=== PATIENT | female | born 2000 | race Hispanic/Latino ===

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

== ENCOUNTER 2021-10-15 11:22 | Emergency (ER) | payer OTHER ==
[2021-10-15] MEDS ORDERED: HYDROCODONE/APAP 5/325 MG TAB ONE (13:19)
--- NOTE | 2021-10-15 13:46 | ER ---
Nurse's Notes [facility] Name: Kaleigh Alston Age: 21 yrs Sex: Female : 2000 Arrival Date: 10/15/2021 Time: 11:26 Bed 17 Private MD: Diagnosis: Dental Pain Presentation: 10/15 11:50 Chief complaint: Patient states: pt reports right jaw/mouth pain that started this [place]ward morning that radiates to head causing headaches. Coronavirus screen: Vaccine status: Patient reports being unvaccinated. Ebola Screen: Patient denies travel to an Ebola-affected area in the 21 days before illness onset. Initial Sepsis Screen: Does the patient meet any 2 criteria? No. Patient's initial sepsis screen is negative. Does the patient have a suspected source of infection? No. Patient's initial sepsis screen is negative. Risk Assessment: Do you want to hurt yourself or someone else? Patient reports no desire to harm self or others. Onset of symptoms was October 15, 2021. 11:50 Method Of Arrival: Ambulatory [place] 11:50 Acuity: FRANK 4 [place] Triage Assessment: 11:52 Headache History: The patient has had previous headaches. General: Appears in no [place] apparent distress. Behavior is calm, cooperative. Pain: Pain at worst was 10 out of 10 on a pain scale. Pain began suddenly, Also complains of no other associated symptoms. Neuro: No deficits noted. Level of Consciousness is awake, alert, obeys commands, Oriented to person, place, time, situation. 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 - Social history:: Smoking status: Patient denies any tobacco usage or history of. Screenin:36 Abuse screen: Denies threats or abuse. Denies injuries from another. Nutritional bp screening: No deficits noted. Tuberculosis screening: No symptoms or risk factors identified. Fall Risk None identified. Assessment: 12:36 General: SEE TRIAGE NOTE. bp 13:54 Reassessment: PT D/C HOME AMBULATORY, DX WITH DENTAL PAIN. bp Vital Signs: 11:50 BP 110 / 78; Pulse 77; Resp 18; Temp 98.7(O); Pulse Ox 100% on R/A; Weight 49.9 kg; [place] Height 5 ft. 7 in. (170.18 cm); 13:54 BP 115 / 69; Pulse 75; Resp 17; Pulse Ox 100% ; bp 11:50 Body Mass Index 17.23 (49.90 kg, 170.18 cm) [place] ED Course: 11:26 Patient arrived in ED. as 11:52 Triage completed. [place] 12:35 Tu Farrell, RN is Primary Nurse. bp 12:36 Arm band placed on. bp 12:36 Patient has correct armband on for positive identification. Bed in low position. Call bp light in reach. Side rails up X2. 12:40 Rich Champion PA is PHCP. [facility] 12:40 Phi Mayberry MD is Attending Physician. [facility] 13:44 Chuy Byrne DDS is Referral Physician. [facility] 13:54 No provider procedures requiring assistance completed. Patient did not have IV access bp during this emergency room visit. Administered Medications: 13:10 Drug: [place] (HYDROcodone-acetaminophen) 10 mg-325 mg 1 tabs Route: PO; bp 13:55 Follow up: Response: No adverse reaction bp Medication: 12:36 VIS not applicable for this client. bp Outcome: 13:45 Discharge ordered by MD. [facility] 13:54 Discharged to home ambulatory. bp 13:54 Condition: stable 13:54 Discharge instructions given to patient, Instructed on discharge instructions, follow up and referral plans. medication usage, Demonstrated understanding of instructions, follow-up care, medications, Prescriptions given X 3. 13:56 Patient left the ED. bp Signatures: Rich Champion PA PA jmm Martinez, Amelia as Tu Farrell, RN RN bp Au-StagerJesenia RN RN [place]
--- NOTE | 2021-10-15 13:46 | EDPHYS ---
Physician Documentation [facility] Name: Kaleigh Alston Age: 21 yrs Sex: Female : 2000 Arrival Date: 10/15/2021 Time: 11:26 Bed 17 Private MD: ED Physician Phi Mayberry HPI: 10/15 12:45 This 21 yrs old Female presents to ER via Ambulatory with complaints of Jaw jmm Pain, Headache. 12:45 The patient presents with pain. Onset: The symptoms/episode began/occurred gradually, 3 jmm day(s) ago. Duration: The symptoms are continuous. Modifying factors: The symptoms are alleviated by nothing, the symptoms are aggravated by chewing. This is a 21 year old female currently 16 weeks that presents to the ED with complaints of right sided jaw pain which she states originated in the right side of her mouth. Denies fever, denies injury. . 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 - Social history:: Smoking status: Patient denies any tobacco usage or history of. ROS: 12:45 Constitutional: Negative for fever, chills, and weight loss. jmm 12:45 ENT: Positive for dental pain. 12:45 All other systems are negative. Exam: 12:45 Constitutional: This is a well developed, well nourished patient who is awake, alert, jmm and in no acute distress. Head/Face: atraumatic. Eyes: EOMI, no conjunctival erythema appreciated 12:45 Neck: Trachea midline, Supple Chest/axilla: Normal chest wall appearance and motion. Cardiovascular: Regular rate and rhythm. No edema appreciated Respiratory: Normal respirations, no respiratory distress appreciated Abdomen/GI: Non distended Back: Normal ROM Skin: General appearance color normal MS/ Extremity: Moves all extremities, no obvious deformities appreciated, no edema noted to the lower extremities Neuro: Awake and alert Psych: Behavior is normal, Mood is normal, Patient is cooperative and pleasant 12:45 ENT: Posterior pharynx: is normal, Dental exam: gum swelling, that is mild, specifically in the lower right second bicuspid (#29), lower right first molar (#30) and lower right second molar (#31). Vital Signs: 11:50 BP 110 / 78; Pulse 77; Resp 18; Temp 98.7(O); Pulse Ox 100% on R/A; Weight 49.9 kg; [place] Height 5 ft. 7 in. (170.18 cm); 13:54 BP 115 / 69; Pulse 75; Resp 17; Pulse Ox 100% ; bp 11:50 Body Mass Index 17.23 (49.90 kg, 170.18 cm) [place] MDM: 12:45 Patient medically screened. [facility] 13:43 Data reviewed: vital signs, nurses notes. [facility] 13:43 Counseling: I had a detailed discussion with the patient and/or guardian regarding: the [facility] historical points, exam findings, and any diagnostic results supporting the discharge/admit diagnosis, the need for outpatient follow up, to return to the emergency department if symptoms worsen or persist or if there are any questions or concerns that arise at home. ED course: Patient is alert and non toxic in appearance in the ED. Patient advised to follow up with dentist and otherwise given strict return precautions. Patient understood and agrees with the plan of care. . Administered Medications: 13:10 Drug: [place] (HYDROcodone-acetaminophen) 10 mg-325 mg 1 tabs Route: PO; bp 13:55 Follow up: Response: No adverse reaction bp Disposition: 14:55 Co-signature as Attending Physician, Phi Mayberry MD I agree with the assessment and kdr plan of care. Disposition Summary: 10/15/21 13:45 Discharge Ordered Location: Home [facility] Condition: Stable [facility] Diagnosis - Dental Pain [facility] Followup: [facility] - With: Chuy Byrne DDS - When: 1 - 2 days - Reason: Recheck today's complaints, Continuance of care, Re-evaluation by your physician Discharge Instructions: - Discharge Summary Sheet [facility] - Dental Pain [facility] Forms: - Medication Reconciliation Form [facility] - Thank You Letter [facility] - Antibiotic Education [facility] - Prescription Opioid Use [facility] Prescriptions: - Peridex 0.12 % Mucous Membrane mouthwash - place 15 milliliter by MUCOUS MEMBRANE route 2 times per day after brushing m teeth, swish in mouth for 30 seconds then spit out; 1 bottle; Refills: 0, Product Selection Permitted - acetaminophen 500 mg/15 mL Oral liquid - take 15 milliliter by ORAL route every 4 hours not to exceed 120 mL in 24hrs; jmm 300 milliliter; Refills: 0, Product Selection Permitted - clindamycin palmitate HCl 75 mg/5 mL Oral recon soln - take 10 milliliter by ORAL route 3 times per day for 5 days; 150 milliliter; jmm Refills: 0, Product Selection Permitted Signatures: Phi Mayberry MD MD kdr Mickail, Joel, PA PA jmm Peltier, Brian, RN RN Ida-Jesenia Reddy RN RN [place]
[2021-10-15 14:47] VITALS: TEMP 98.7; O2SAT 100
[2021-10-15 14:56] VITALS: BP 115/69
== END 2021-10-15 13:56 | disposition home or self-care (01) ==
LOC: ER 11:22
DX: K08.89 Other specified disorders of teeth and supporting structures (principal); R68.84 Jaw pain; R51.9 Headache, unspecified
CPT/HCPCS: 99283

== ENCOUNTER 2022-04-12 19:34 | Emergency (ER) | payer OTHER ==
--- OUTSIDE RECORDS SUMMARY | 2022-04-12 19:52 | XMS REPORT | Continuity of Care Document ---
:2000 Author Organization [facility] t Address [address] [place] [address] Care Team Providers Name Role Phone Pcp, Patient Does Not Have A Primary Care Physician [phone] Ravi Kennedy Attending Clinician Unavailable SAMRA REYES Attending Clinician Unavailable SAMRA REYES Attending Clinician Unavailable Aaron Matute Attending Clinician Unknown, Attending Attending Clinician Unavailable AARON BECERRA Attending Clinician Unavailable Pcp, Patient Does Not Have A Attending Clinician [phone] Provider, [facility] Attending Clinician Unavailable Melisa Arrieta MD Attending Clinician MELISA ARRIETA Attending Clinician Unavailable Sarah Parikh RN Attending Clinician Unavailable ELAINA AL Attending Clinician Unavailable Charles POLISHER EYEGLASS FRAMES, Elaina Attending Clinician CHRIS HONEYCUTT Attending Clinician Unavailable Chris Honeycutt PA-C Attending Clinician CATHY DENNISON Attending Clinician Unavailable Jesi POLISHER EYEGLASS FRAMES, Cathy Campos Attending Clinician SUSAN BERMUDEZ Attending Clinician Unavailable Vincmeg POLISHER EYEGLASS FRAMES, Shinisaac Attending Clinician [email or web address] Attending Clinician Unavailable Olimpia Lin Attending Clinician [phone] Doctor Unassigned, [place] Attending Clinician Unavailable Giuseppe Christopher Attending Clinician Unavailable Christopher Slater Attending Clinician Unavailable [email or web address] Attending Clinician Unavailable Nicola Pichardo DO Attending Clinician Lab, [facility] Pob I Attending Clinician Unavailable Nadiya Jackson Attending Clinician NADIYA BLANCO Attending Clinician Unavailable Adore Jolly RN Attending Clinician Unavailable CHERRY NORIEGA Attending Clinician Unavailable Leann BOLDEN, [place] Attending Clinician Francie Israel RN Attending Clinician Unavailable Gilbert Mcgarry Attending Clinician [phone] AKINGILBERT GILMORE Attending Clinician Unavailable TED MODI Attending Clinician Unavailable TED MODI Attending Clinician Unavailable Teresa Guerrero MD Attending Clinician Ted Modi MD Attending Clinician Glo Aggarwal DO Attending Clinician ABHAY STAPLETON Attending Clinician Unavailable Abhay Mtz Attending Clinician Cielo BLANTON, Carmen Attending Clinician TERESA GUERRERO Admitting Clinician Unavailable SYD PAK Admitting Clinician Unavailable [email or web address] Admitting Clinician Unavailable [email or web address] Admitting Clinician Unavailable TED MODI Admitting Clinician Unavailable Gera BLANTON, Ted Admitting Clinician Yolanda BLANTON, Teresa Admitting Clinician Payers Payer Name Policy Type Policy Number Effective Date Expiration Date Samina [facility] [id number] 2019 00:00:00 [facility] [id number] - [place] H[place]) [place]ICAID OF [place] [id number] 2019 00:00:00 Problems Condition Condition Condition Status Onset Resolution Last Treating Co mments Source Name Details Category Date Date Treatment Clinician Date Bacterial Bacterial Problem Active Karlene via vaginosis Vaginosis 09-06 [facility] 00:00: 00 Routine Routine Problem Active [facility] 08-16 [facility] care Care 00:00: 00 Problem Active [facility] a 08-16 Medical 00:00: 00 Gestation Gestation Problem Active Karlene via period, 8 Period, 8 08-16 [facility] weeks Weeks 00:00: 00 Mastitis Mastitis Disease Active Unive rs 09-02 ity of 00:00: [place] 00 [facility] Screening Screening Disease Active Uni vers examinatio examinatio 08-16 it y of n for STD n for STD 00:00: [place] (sexually (sexually 00 [facility] transmitte transmitte Br anch d disease) d disease) 34 weeks 34 weeks Disease Active 2019-0 Unive rs gestation gestation 4-12 ity of of of 00:00: [place] 00 [facility] Pre-eclamp Pre-eclamp Disease Active 2020-0 U nivers eliel in eliel in 4-12 ity of third third 00:00: [place] trimester trimester 00 [facility] Preeclamps Preeclamps Disease Active 2020-0 U nivers ia, ia, 4-12 ity of severe, severe, 00:00: [place] third third 00 Medical trimester trimester Bran ch Mother's Mother's Disease Active 2020-0 Unive rs group B group B 4-12 ity of Streptococ Streptococ 00:[place] c[place] cus 00 Medical colonizati colonizati Br anch on status on status unknown unknown Need for Need for Disease Active 2019-0 Unive rs prophylact prophylact 3-04 it y of ic ic 00:00: [place] vaccinatio vaccinatio 00 Me dical n and n and Branch inoculatio inoculatio n against n against influenza influenza Urinary Urinary Disease Active Univers tract tract 2-12 [place] of infection infection 00:[place] without without 00 Medical hematuria, hematuria, Br anch site site unspecifie unspecifie d d Vaginal Vaginal Disease Active 2018-04 Univers discharge discharge 2-04 ity of 00:00: [place] [facility] Supervisio Supervisio Disease Active 2018-04 U nivers n of high n of high 0-03 ity of risk risk 00:00: [place] , , 00 Me dical antepartum antepartum Br anch High risk High risk Disease Active 2018-04 Uni vers teen teen 0-03 [place] of 00:[place] in third in third 00 Medica l trimester trimester Bran ch Primigravi Primigravi Disease Active 2018-04 U nivers da in da in 0-03 ity of second second 00:00: [place] trimester trimester 00 [facility] Branch Vaginal Vaginal Disease Active 2018-04 Univers bleeding bleeding 0-03 [place] of affecting affecting 00:00[place] early early 00 Medical Bran ch Nausea Nausea Disease Active 2018-04 Univers without without 0-03 ity of vomiting vomiting 00:00: [place] [facility] No known No known Disease Unive rs active active ity of problems problems [facility] Allergies, Adverse Reactions, Alerts Allergy Allergy Status Severity Reaction(s) Onset Inactive Treating Comm ents Source Name Type Date Date Clinician AMOXICIL DRUG Active Rash Univers LUPE INGREDI 9-18 ity of 00:00: [place] 00 Medical Branch Amoxicil Propensi Active Rash Univer s lupe ty to 918 ity of adverse 00:00: [place] reaction 00 Medical s Branch NO KNOWN Drug Active Univers ALLERGIE Class ity of S [facility] PENICILL Allergy Active [facility] INS to Medical substanc e Social History Social Habit Start Date Stop Date Quantity Comments Source ASSERTION 2018-12-10 University of 00:00:00 [place] [facility] History SDOH University o f Alcohol Std [place] Medical Drinks Branch History SDOH University o f Alcohol Binge [place] Medic al Branch History SDOH University o f Alcohol Comment [place] Med ical Branch History of Current smoker University of tobacco use [facility]igned [facility] Exposure to 2022-04-02 2022-04-12 Not sure University of SARS-CoV-2 00:00:00 14:08:00 [facility] (event) Branch Tobacco use and 2022-03-27 2022-03-27 Smokeless tobacco Un iversity of exposure 00:00:00 00:00:00 non-user [facility] Alcohol intake 2022-03-27 2022-03-27 Lifetime University of 00:00:00 00:00:00 non-drinker [facility] (finding) [place] History SDOH 2019-01-14 2019-01-14 1 University o f Alcohol Frequency 00:00:00 00:00:00 [facility] edical [place] Smoking Status Start Date Stop Date Source Ex-smoker 2022-03-27 00:00:00 2022-03-27 00:00:00 Universi ty of [facility] Never Smoker [facility] [place] [facility] Medications Ordered Filled Start Stop Current Ordering Indication Dosage Frequency Signature Comments Components Source Medication Medication Date Date Medication? Clinician (SIG) Name Name dicloxacill 2021-04- Yes [id number] 500mg Take 1 Univers in 500 mg 2-30 01-10 capsule by ity of capsule 00:00: 05:59 mouth 4 [place] 00 :00 ([facility]) Medical times [place] daily for 10 days. dicloxacill 2021-04- Yes [id number] 500mg Take 1 Univers in 500 mg 2-30 01-10 capsule by ity of capsule 00:00: 05:59 mouth 4 [place] 00 :00 ([facility]) Medical times [place] daily for 10 days. cephALEXin 2021-04- Yes [id number] 500mg Take 10 mL Univers 250 mg/5 mL 2-30 01-10 by mouth 4 i ty of suspension 00:00: 05:59 ([facility]) [place] :[place] times Medical daily for Branch 10 days. dicloxacill 2021-04- Yes [id number] 500mg Take 1 Univers in 500 mg 2-30 01-10 capsule by ity of capsule 00:00: 05:59 mouth 4 [place] 00 :00 ([facility]) Medical times [place] daily for 10 days. cephALEXin 2021-04- Yes [id number] 500mg Take 10 mL Univers 250 mg/5 mL 2-30 -10 by mouth 4 i ty of suspension 00:00: 05:59 (four[place] 00 :[place] times Medical daily for Branch 10 days. Prenat Vit 2021-04 Yes Take by [employer] [facility] Comb.10-Iro 2-14 mouth. ity of n-FA-DHA 17:03: [place] 65-1-250 mg 04 Medical combo pack Branch Prenat Vit 2021-04 Yes Take by [employer] [facility] Comb.10-Iro 2-14 mouth. ity of n-FA-DHA 17:03: [place] 65-1-250 mg 04 Medical combo pack Branch Prenat Vit 2021-04 Yes Take by [employer] [facility] Comb.10-Iro 2-14 mouth. ity of n-FA-DHA 17:03: [place] 65-1-250 mg 04 Medical combo pack Branch Prenat Vit 2021-04 Yes Take by [employer] [facility] Comb.10-Iro 2-14 mouth. ity of n-FA-DHA 17:03: [place] 65-1-250 mg 04 Medical combo pack Branch ibuprofen 2021-04 Yes [id number] 600mg Take 1 Univers 600 mg 2-14 tablet by ity of tablet 00:00: mouth [place] 00 every 6 Medical (six) Branch hours as needed for Pain (scale 4-6). miconazole 2021-04 Yes [id number] 1{appli Insert 1 Univers (MONISTAT 2-14 cator} Applicator it y of 7) 2 % 00:00: into [place] vaginal 00 vagina at Medical cream bedtime. Branch ibuprofen 2021-04 Yes [id number] 600mg Take 1 Univers 600 mg 2-14 tablet by ity of tablet 00:00: mouth [place] 00 every 6 Medical (six) Branch hours as needed for Pain (scale 4-6). miconazole 2021-04 Yes [id number] 1{appli Insert 1 Univers (MONISTAT 2-14 cator} Applicator it y of 7) 2 % 00:00: into [place] vaginal 00 vagina at Medical cream bedtime. Branch ibuprofen 2021-04 Yes [id number] 600mg Take 1 Univers 600 mg 2-14 tablet by ity of tablet 00:00: mouth [place] 00 every 6 Medical (six) Branch hours as needed for Pain (scale 4-6). miconazole 2021-04 Yes [id number] 1{appli Insert 1 Univers (MONISTAT 2-14 cator} Applicator it y of 7) 2 % 00:00: into [place] vaginal 00 vagina at Medical cream bedtime. Branch ibuprofen 2021-04 Yes [id number] 600mg Take 1 Univers 600 mg 2-14 tablet by ity of tablet 00:00: mouth [place] 00 every 6 Medical (six) Branch hours as needed for Pain (scale 4-6). miconazole 2021-04 Yes [id number] 1{appli Insert 1 Univers (MONISTAT 2-14 cator} Applicator it y of 7) 2 % 00:00: into [place] vaginal 00 vagina at Medical cream bedtime. Branch amoxicillin 2021-04- Yes [id number] 870mg Take 7.25 Univers -pot 2-14 12-22 mL by ity of clavulanate 00:00: 05:59 mouth in [place] 600-42.9 00 :00 the Medical mg/5 mL morning Branch suspension and 7.25 mL in the evening. Do all this for 7 days. amoxicillin 2021-04- No [id number] 1{tbl} Take 1 Univers -clavulanat 2-14 12-14 tablet by it y of e 00:00: 00:00 mouth in [place] (AUGMENTIN) 00 :00 the Medical 875-125 mg morning Branch per tablet and 1 tablet in the evening. Do all this for 7 days. fluconazole 2021-04- No [id number] 150mg Take 1 Univers (DIFLUCAN) 2-14 12-14 tablet by ity of 150 mg 00:00: 00:00 mouth [place] tablet 00 :00 now for 1 Medical dose. Branch No known No No known Unive rs medications 9-24 medication it y of 16:00: [address] No known 0 No No known Unive rs medications 9-24 medication it y of 16:00: [address] No known 2021-0 No No known Unive rs medications 8-17 medication it y of 12:52: [address] No known 2021-0 No No known Unive rs medications 8-15 medication it y of 15:47: [address] No known No No known Unive rs medications 8-08 medication it y of 07:55: s [place] 10 [facility] sulfamethox 2020-0 2020- No [id number] 1{tbl} Take 1 Univers azole-trime 8-01 12- tablet by it y of thoprim 00:00: 04:59 mouth 2 [place] (BACTRIM 00 :00 (two) Medical DS) 800-160 times Branch mg per daily for tablet 10 days. sulfamethox 2020-0 2020- No [id number] 1{tbl} Take 1 Univers azole-trime 8-20 - tablet by it y of thoprim 00:00: 04:59 mouth 2 [place] (BACTRIM 00 :00 (two) Medical DS) 800-160 times Branch mg per daily for tablet 10 days. No known 2020-0 No Univers medications 7-21 ity of 17:05: [address] No known 2019-0 No Univers medications 7-21 ity of 17:05: [address] clindamycin 2019-0 2020- No [id number] 300mg Take 1 Univers 300 mg 5-22 06-02 capsule by ity of capsule 00:00: 04:59 mouth 4 [place] 00 :00 (four) Medical times [place] daily for 10 days. clindamycin 2019-0 2020- No [id number] 300mg Take 1 Univers 300 mg 5-22 06-02 capsule by ity of capsule 00:00: 04:59 mouth 4 [place] 00 :00 (four) Medical times [place] daily for 10 days. MELATONIN 2019-0 2020- No Take by Univ ers ORAL 4-15 04-15 mouth. ity of 19:40: 00:00 [place] 13 :00 [facility] Branch human 2020-0 Yes .5mL 0.5 mL, Univers papillomav 4-15 Intramuscu ity of vac,9-oneida(P 11:10: lar, [place] F) 15 ONCE-PRIOR Medical (GARDASIL 9 TO Branch (PF)) vial DISCHARGE, 0.5 mL 1 dose, Starting Fri07/28/19 at 0610, Until Discontinu ed, Routine, Give vaccine prior to discharge labetalol 2020-0 Yes [id number] 100mg Take 10 mL Univers (NORMODYNE) 4-15 by mouth 2 it y of 10 mg/mL 00:00: (two) [place] oral 00 times Medical suspension daily. Branch 2020-0 Yes [id number] 1{tbl} Take 1 Univers vitamin 4-15 tablet by ity of w/FA tablet 00:00: mouth [place] 00 daily. Medical Branch docusate 2020-0 Yes [id number] 240mg Take 1 U nivers calcium 240 4-15 capsule by it y of mg capsule 00:00: mouth once [place] 00 daily as Medical needed for Branch Constipati on. ferrous 2020-0 Yes [id number] 325mg Take 1 Un manav sulfate 325 4-15 tablet by ity of mg (65 mg 00:00: mouth 2 [place] iron) 00 (two) Medical tablet times Branch daily. ibuprofen 2020-0 Yes [id number] 600mg Take 1 Univers 600 mg 4-15 tablet by ity of tablet 00:00: mouth [place] 00 every 6 Medical (six) Branch hours as needed (Pain). Take with food or milk. labetalol 2020-0 Yes [id number] 100mg Take 10 mL Univers (NORMODYNE) 4-15 by mouth 2 it y of 10 mg/mL 00:00: (two) [place] oral 00 times Medical suspension daily. Branch 2020-0 Yes [id number] 1{tbl} Take 1 Univers vitamin 4-15 tablet by ity of w/FA tablet 00:00: mouth [place] 00 daily. Medical Branch docusate 2020-0 Yes [id number] 240mg Take 1 U nivers calcium 240 4-15 capsule by it y of mg capsule 00:00: mouth once [place] 00 daily as Medical needed for Branch Constipati on. ferrous 2020-0 Yes [id number] 325mg Take 1 Un manav sulfate 325 4-15 tablet by ity of mg (65 mg 00:00: mouth 2 [place] iron) 00 (two) Medical tablet times Branch daily. ibuprofen 2020-0 Yes [id number] 600mg Take 1 Univers 600 mg 4-15 tablet by ity of tablet 00:00: mouth [place] 00 every 6 Medical (six) Branch hours as needed (Pain). Take with food or milk. labetalol 2020-0 Yes [id number] 100mg Take 10 mL Univers (NORMODYNE) 4-15 by mouth 2 it y of 10 mg/mL 00:00: (two) [place] oral 00 times Medical suspension daily. Branch 2020-0 Yes [id number] 1{tbl} Take 1 Univers vitamin 4-15 tablet by ity of w/FA tablet 00:00: mouth [place] 00 daily. Medical Branch docusate 2020-0 Yes [id number] 240mg Take 1 U nivers calcium 240 4-15 capsule by it y of mg capsule 00:00: mouth once [place] 00 daily as Medical needed for Branch Constipati on. ferrous 2020-0 Yes [id number] 325mg Take 1 Un manav sulfate 325 4-15 tablet by ity of mg (65 mg 00:00: mouth 2 [place] iron) 00 (two) Medical tablet times Branch daily. ibuprofen 2020-0 Yes [id number] 600mg Take 1 Univers 600 mg 4-15 tablet by ity of tablet 00:00: mouth [place] 00 every 6 Medical (six) Branch hours as needed (Pain). Take with food or milk. labetalol 2020-0 Yes [id number] 100mg Take 10 mL Univers (NORMODYNE) 4-15 by mouth 2 it y of 10 mg/mL 00:00: (two) [place] oral 00 times Medical suspension daily. Branch 2019-0 Yes [id number] 1{tbl} Take 1 Univers vitamin 4-15 tablet by ity of w/FA tablet 00:00: mouth [place] 00 daily. Medical Branch docusate 2020-0 Yes [id number] 240mg Take 1 U nivers calcium 240 4-15 capsule by it y of mg capsule 00:00: mouth once [place] 00 daily as Medical needed for Branch Constipati on. ferrous 2020-0 Yes [id number] 325mg Take 1 Un manav sulfate 325 4-15 tablet by ity of mg (65 mg 00:00: mouth 2 [place] iron) 00 (two) Medical tablet times Branch daily. ibuprofen 2020-0 Yes [id number] 600mg Take 1 Univers 600 mg 4-15 tablet by ity of tablet 00:00: mouth [place] 00 every 6 Medical (six) Branch hours as needed (Pain). Take with food or milk. labetalol 2020-0 Yes [id number] 100mg Take 10 mL Univers (NORMODYNE) 4-15 by mouth 2 it y of 10 mg/mL 00:00: (two) [place] oral 00 times Medical suspension daily. Branch 2020-0 Yes [id number] 1{tbl} Take 1 Univers vitamin 4-15 tablet by ity of w/FA tablet 00:00: mouth [place] 00 daily. Medical Branch docusate 2020-0 Yes [id number] 240mg Take 1 U nivers calcium 240 4-15 capsule by it y of mg capsule 00:00: mouth once [place] 00 daily as Medical needed for Branch Constipati on. ferrous 2020-0 Yes [id number] 325mg Take 1 Un manav sulfate 325 4-15 tablet by ity of mg (65 mg 00:00: mouth 2 [place] iron) 00 (two) Medical tablet times Branch daily. ibuprofen 2020-0 Yes [id number] 600mg Take 1 Univers 600 mg 4-15 tablet by ity of tablet 00:00: mouth [place] 00 every 6 Medical (six) Branch hours as needed (Pain). Take with food or milk. labetalol 2020-0 Yes [id number] 100mg Take 10 mL Univers (NORMODYNE) 4-15 by mouth 2 it y of 10 mg/mL 00:00: (two) [place] oral 00 times Medical suspension daily. Branch 2019-0 Yes [id number] 1{tbl} Take 1 Univers vitamin 4-15 tablet by ity of w/FA tablet 00:00: mouth [place] 00 daily. Medical Branch docusate 2020-0 Yes [id number] 240mg Take 1 U nivers calcium 240 4-15 capsule by it y of mg capsule 00:00: mouth once [place] 00 daily as Medical needed for Branch Constipati on. ferrous 2020-0 Yes [id number] 325mg Take 1 Un manav sulfate 325 4-15 tablet by ity of mg (65 mg 00:00: mouth 2 [place] iron) 00 (two) Medical tablet times Branch daily. ibuprofen 2020-0 Yes [id number] 600mg Take 1 Univers 600 mg 4-15 tablet by ity of tablet 00:00: mouth [place] 00 every 6 Medical (six) Branch hours as needed (Pain). Take with food or milk. labetalol 2020-0 Yes [id number] 100mg Take 10 mL Univers (NORMODYNE) 4-15 by mouth 2 it y of 10 mg/mL 00:00: (two) [place] oral 00 times Medical suspension daily. Branch 2020-0 Yes [id number] 1{tbl} Take 1 Univers vitamin 4-15 tablet by ity of w/FA tablet 00:00: mouth [place] 00 daily. Medical Branch docusate 2020-0 Yes [id number] 240mg Take 1 U nivers calcium 240 4-15 capsule by it y of mg capsule 00:00: mouth once [place] 00 daily as Medical needed for Branch Constipati on. ferrous 2020-0 Yes [id number] 325mg Take 1 Un manav sulfate 325 4-15 tablet by ity of mg (65 mg 00:00: mouth 2 [place] iron) 00 (two) Medical tablet times Branch daily. ibuprofen 2020-0 Yes [id number] 600mg Take 1 Univers 600 mg 4-15 tablet by ity of tablet 00:00: mouth [place] 00 every 6 Medical (six) Branch hours as needed (Pain). Take with food or milk. labetalol 2020-0 Yes [id number] 100mg Take 10 mL Univers (NORMODYNE) 4-15 by mouth 2 it y of 10 mg/mL 00:00: (two) [place] oral 00 times Medical suspension daily. Branch 2020-0 Yes [id number] 1{tbl} Take 1 Univers vitamin 4-15 tablet by ity of w/FA tablet 00:00: mouth [place] 00 daily. Medical Branch docusate 2020-0 Yes [id number] 240mg Take 1 U nivers calcium 240 4-15 capsule by it y of mg capsule 00:00: mouth once [place] 00 daily as Medical needed for Branch Constipati on. ferrous 2020-0 Yes [id number] 325mg Take 1 Un manav sulfate 325 4-15 tablet by ity of mg (65 mg 00:00: mouth 2 [place] iron) 00 (two) Medical tablet times Branch daily. ibuprofen 2020-0 Yes [id number] 600mg Take 1 Univers 600 mg 4-15 tablet by ity of tablet 00:00: mouth [place] 00 every 6 Medical (six) Branch hours as needed (Pain). Take with food or milk. labetalol 2020-0 Yes [id number] 100mg Take 10 mL Univers (NORMODYNE) 4-15 by mouth 2 it y of 10 mg/mL 00:00: (two) [place] oral 00 times Medical suspension daily. Branch 2020-0 Yes [id number] 1{tbl} Take 1 Univers vitamin 4-15 tablet by ity of w/FA tablet 00:00: mouth [place] 00 daily. Medical Branch docusate 2020-0 Yes [id number] 240mg Take 1 U nivers calcium 240 4-15 capsule by it y of mg capsule 00:00: mouth once [place] 00 daily as Medical needed for Branch Constipati on. ferrous 2020-0 Yes [id number] 325mg Take 1 Un manav sulfate 325 4-15 tablet by ity of mg (65 mg 00:00: mouth 2 [place] iron) 00 (two) Medical tablet times Branch daily. ibuprofen 2020-0 Yes [id number] 600mg Take 1 Univers 600 mg 4-15 tablet by ity of tablet 00:00: mouth [place] 00 every 6 Medical (six) Branch hours as needed (Pain). Take with food or milk. labetalol 2020-0 Yes [id number] 100mg Take 10 mL Univers (NORMODYNE) 4-15 by mouth 2 it y of 10 mg/mL 00:00: (two) [place] oral 00 times Medical suspension daily. Branch 2020-0 Yes [id number] 1{tbl} Take 1 Univers vitamin 4-15 tablet by ity of w/FA tablet 00:00: mouth [place] 00 daily. Medical Branch docusate 2020-0 Yes [id number] 240mg Take 1 U nivers calcium 240 4-15 capsule by it y of mg capsule 00:00: mouth once [place] 00 daily as Medical needed for Branch Constipati on. ferrous 2020-0 Yes [id number] 325mg Take 1 Un manav sulfate 325 4-15 tablet by ity of mg (65 mg 00:00: mouth 2 [place] iron) 00 (two) Medical tablet times Branch daily. ibuprofen 2020-0 Yes [id number] 600mg Take 1 Univers 600 mg 4-15 tablet by ity of tablet 00:00: mouth [place] 00 every 6 Medical (six) Branch hours as needed (Pain). Take with food or milk. labetalol 2020-0 Yes [id number] 100mg Take 10 mL Univers (NORMODYNE) 4-15 by mouth 2 it y of 10 mg/mL 00:00: (two) [place] oral 00 times Medical suspension daily. Branch 2020-0 Yes [id number] 1{tbl} Take 1 Univers vitamin 4-15 tablet by ity of w/FA tablet 00:00: mouth [place] 00 daily. Medical Branch docusate 2020-0 Yes [id number] 240mg Take 1 U nivers calcium 240 4-15 capsule by it y of mg capsule 00:00: mouth once [place] 00 daily as Medical needed for Branch Constipati on. ferrous 2020-0 Yes [id number] 325mg Take 1 Un manav sulfate 325 4-15 tablet by ity of mg (65 mg 00:00: mouth 2 [place] iron) 00 (two) Medical tablet times Branch daily. ibuprofen 2020-0 Yes [id number] 600mg Take 1 Univers 600 mg 4-15 tablet by ity of tablet 00:00: mouth [place] 00 every 6 Medical (six) Branch hours as needed (Pain). Take with food or milk. labetalol 2020-0 Yes [id number] 100mg Take 10 mL Univers (NORMODYNE) 4-15 by mouth 2 it y of 10 mg/mL 00:00: (two) [place] oral 00 times Medical suspension daily. Branch 2019-0 Yes [id number] 1{tbl} Take 1 Univers vitamin 4-15 tablet by ity of w/FA tablet 00:00: mouth [place] 00 daily. Medical Branch docusate 2019-0 Yes [id number] 240mg Take 1 U nivers calcium 240 4-15 capsule by it y of mg capsule 00:00: mouth once [place] 00 daily as Medical needed for Branch Constipati on. ferrous 2020-0 Yes [id number] 325mg Take 1 Un manav sulfate 325 4-15 tablet by ity of mg (65 mg 00:00: mouth 2 [place] iron) 00 (two) Medical tablet times Branch daily. ibuprofen 2020-0 Yes [id number] 600mg Take 1 Univers 600 mg 4-15 tablet by ity of tablet 00:00: mouth [place] 00 every 6 Medical (six) Branch hours as needed (Pain). Take with food or milk. labetalol 2020-0 2020- No [id number] 100mg Take 10 mL Univers (NORMODYNE) 4-15 06-08 by mouth 2 i ty of 10 mg/mL 00:00: 00:00 (two) [place] oral 00 :00 times Medical suspension daily. Branch 2019-0 2020- No [id number] 1{tbl} Take 1 Univers vitamin 4-15 06-08 tablet by ity of w/FA tablet 00:00: 00:00 mouth [place] 00 :00 daily. Medical Branch docusate 2020-0 2020- No [id number] 240mg Take 1 Univers calcium 240 4-15 06-08 capsule by i ty of mg capsule 00:00: 00:00 mouth once [place] 00 :00 daily as Medical needed for Branch Constipati on. ferrous 2020-0 2020- No [id number] 325mg Take 1 U nivers sulfate 325 4-15 06-08 tablet by it y of mg (65 mg 00:00: 00:00 mouth [place] iron) 00 :00 (two) Medical tablet times Branch daily. ibuprofen 2019- 2020- No [id number] 600mg Take 1 [facility] 600 mg 4-15 06-08 tablet by ity of tablet 00:00: 00:00 mouth [place] 00 :00 every 6 Medical (six) Branch hours as needed (Pain). Take with food or milk. labetalol 2019- 2020- No [id number] 100mg Take 10 mL Univers (NORMODYNE) 4-15 06-08 by mouth 2 i ty of 10 mg/mL 00:00: 00:00 (two) [place] oral 00 :00 times Medical suspension daily. Branch 2020- No [id number] 1{tbl} Take 1 [facility] vitamin 4-15 06-08 tablet by ity of w/FA tablet 00:00: 00:00 [place] 00 :00 daily. Medical Branch docusate 2019- No [id number] 240mg Take 1 [facility] calcium 240 4-15 06-08 capsule by i ty of mg capsule 00:00: 00:00 mouth once [place] 00 :00 daily as Medical needed for Branch Constipati on. ferrous 2019- 2020- No [id number] 325mg Take 1 U nivers sulfate 325 4-15 06-08 tablet by it y of mg (65 mg 00:00: 00:00 mouth [place] iron) 00 :00 (two) Medical tablet times Branch daily. ibuprofen 2020- No [id number] 600mg Take 1 [facility] 600 mg 4-15 06-08 tablet by ity of tablet 00:00: 00:00 mouth [place] 00 :00 every 6 Medical (six) Branch hours as needed (Pain). Take with food or milk. labetalol 2019- 2020- No [id number] 100mg Take 10 mL [facility] (NORMODYNE) 4-15 06-08 by mouth 2 i ty of 10 mg/mL 00:00: 00:00 (two) [place] oral 00 :00 times Medical suspension daily. Branch 2019- 2020- No [id number] 1{tbl} Take 1 [facility] vitamin 4-15 06-08 tablet by ity of w/FA tablet 00:00: 00:00 [place] 00 :00 daily. Medical Branch docusate 2019-0 2020- No [id number] 240mg Take 1 [facility] calcium 240 07-27 capsule by i ty of mg capsule 00:00: 00:00 mouth once [place] 00 :00 daily as Medical needed for Branch Constipati on. ferrous 2019-0 2020- No [id number] 325mg Take 1 U nivers sulfate 325 07-27 tablet by it y of mg (65 mg 00:00: 00:00 mouth [place] iron) 00 :00 (two) Medical tablet times Branch daily. ibuprofen 2019-0 2020- No [id number] 600mg Take 1 [facility] 600 mg 07-27 tablet by ity of tablet 00:00: 00:00 mouth [place] 00 :00 every 6 Medical (six) Branch hours as needed (Pain). Take with food or milk. labetalol 2019-0 Yes 100mg 100 mg, Univ ers (NORMODYNE) 07-26 Oral, BID, it y of 10 mg/mL 16:30: First dose [place] as oral 00 on [facility] Medical suspension 07/27/19 at [facility] 100 mg 1130, Until Discontinu ed, Routine labetalol 2019-0 2020- No 20mg 20 mg, Unive rs (NORMODYNE) 07-26- Slow IV ity of injection 14:00: 12:59 Push, [place] 20 mg 00 :00 ONCE, 1 Medical dose, [facility] 07/27/19 at 0900, Routine hydralAZINE 2019- 2020- No 5mg 5 mg, Slow Univers (APRESOLINE 07-26 IV Push, ity of ) injection 12:00: 11:53 ONCE, 1 [place] 5 mg 00 :00 dose, [facility] Medical 07/27/19 at Branch 0700, Routine magnesium 2019- 2020- No 2g/h 2 g/hr (25 U nivers sulfate in 07-26- mL/hr), at it y of LR 40 09:15: 21:14 25 mL/hr, [place] gram/500 mL 00 :00 IV Medical IV Solution Infusion, [facility] CONTINUOUS , Starting [facility] 07/27/19 at 0415, Until [facility] 07/27/19 at 1614, KARIS traMADol 2019-0 Yes 50mg 50 mg, Univers (ULTRAM) 50 4-13 Oral, ity of mg/10 mL 20:21: Q4HPRN, [place] oral 14 Starting Medical syringe Mon Branch 07/26/19 at 1521, Until Discontinu ed, Routine, Pain (scale 7-10) acetaminoph 2020-0 Yes 650mg 650 mg, Un manav en 4-13 Oral, ity of (TYLENOL) 20:20: Q6HPRN, [place] 160 mg/5 mL 45 Starting Medi judy liquid 650 Mon Branch mg 07/26/19 at 1520, Until Discontinu ed, Routine, Pain (scale 4-6) rho(D) 2020-0 Yes 300ug 300 mcg, Univer s immune 4-13 Intramuscu ity of globulin 20:03: lar, ONCE, [place] as (RHOGAM) 31 For 1 Medical syringe 300 dose, Branch mcg Conditiona l, Routine simethicone 2020-0 Yes 160mg 160 mg, Un manav (GAS RELIEF 4- Oral, ity of (SIMETHICON 20:03: PC+HSPRN, [place] E)) 27 Starting Medical chewable Mon Branch tablet 160 07/26/19 at mg 1503, Until Discontinu ed, Routine, Gas diphenhydrA 2020-0 Yes 25mg 25 mg, Univ ers MINE 4-13 Oral, ity of (BENADRYL) 20:03: Q6HPRN, [place] tablet 25 26 Starting Medica l mg Mon Branch 07/26/19 at 1503, Until Discontinu ed, Routine, Sleep, Itching diphenhydrA 2020-0 Yes 25mg 25 mg, IV U nivers MINE-0.9 % 4- Piggyback, ity of sod.chlr 20:03: Administer [place] as (BENADRYL) 26 over 30 Medica l 25 mg/50 mL Minutes, Bran ch piggyback Q6HPRN, 25 mg Starting 07/26/19 at 1503, Until Discontinu ed, Routine, Itching ondansetron 2020-0 Yes 4mg 4 mg, Slow Univers (ZOFRAN 4- IV Push, ity of (PF)) 20:03: Q8HPRN, [place] injection 4 26 Starting Medi judy mg Mon Branch 07/26/19 at 1503, Until Discontinu ed, Routine, Nausea and Vomiting (N/V) docusate 2019-0 Yes 240mg 240 mg, Unive rs calcium 07-25 Oral, ity of (SURFAK) 20:03: QDAILYPRN, [place] as capsule 240 26 Starting Medi judy mg Mon Branch 07/26/19 at 1503, Until Discontinu ed, Routine, Constipati on magnesium Yes 30mL 30 mL, Univer s hydroxide 07-25 Oral, ity of (MILK OF 20:03: QDAILYPRN, [place] as MAGNESIA) 26 Starting Medica l 400 mg/5 mL Mon Branch suspension 07/26/19 at 30 mL 1503, Until Discontinu ed, Routine, Constipati on benzocaine- 0 Yes Topical, Un manav menthol 07-25 PRN, ity of (DERMOPLAST 20:03: Starting [place] ) 20-0.5 % 26 Mon Medical topical 07/26/19 at Branch spray 1503, Until Discontinu ed, Routine, Perineum discomfort acetaminoph 2019- No 650mg 650 mg, U nivers en 07-25 Oral, ity of (TYLENOL) 17:15: 16:34 ONCE, 1 [place] 160 mg/5 mL 00 :00 dose, Mon Med ical liquid 650 07/26/19 at Bra nc mg 1215, Routine LR 1000 mL 2019- No 2mU/min 2 Uni vers + oxytocin 07-25 vinnie-unit it y of 20 units IV 15:15: 16:34 s/min (6 [place] Solution 00 :00 mL/hr), IV Medic al Infusion, Branch ONCE, 07/26/19 at 1015, For 1 dose
In fuse 999 mL /hr & nbsp;over 30 minutes and then decrease rate to 125 mL/hr for the remainder.
amnioinfusi 2020- No 1000mL at 750 U nivers on IV 07-25 mL/hr, ity of infusion 13:45: 13:45 Intrauteri [place] via PUMP 00 :00 ne, ONCE, Medica l 0.9 NaCL 1 dose, Branch 1,000 mL 07/26/19 at 0845, KARIS
Ma y give up 1000 mL.&nb sp; I nfuse via Intrauteri ne Pressure Catheter.& nbsp;&nbsp ;The infusion is started at 750 mL/hr by volume controlled infusion pump. "The infusion pump should be clearly labeled AMNIOINF USION.&n bsp; Once 750 mL has been infused, the infusion may be dicsontinu ed or decreased to 100 mL/hr until the liter is complete.& nbsp;&nbsp ;Notify Team Facilitator if uterine resting tone exceeds 25 mmHg at any time during the amnioinfus ion. Obst etrics (NATALI) Aminoinfus ion Orders
butorphanol 2020- No 1mg 1 mg, IV U nivers (STADOL) 07-25 Push, ity of injection 1 05:00: 04:08 ONCE, 1 [place] mg 00 :00 dose, Mon Medical 07/26/19 at Branch 0000, Routine proMETHazin 2020- No 25mg 25 mg, IV Univers e 07-25 Piggyback, ity of (PHENERGAN) 03:14: 20:03 Q4HPRN, [place] 25 mg in 00 :32 Starting Medical NaCl 0.9% [facility] (NS) 50 mL 07/25/19 at IV 2214, piggyback Until 07/26/19 at 1503, Routine, Nausea and Vomiting (N/V) hydralAZINE 2020- No 10mg 10 mg, Uni vers (APRESOLINE 07-25 Intravenou i ty of ) injection 01:30: 00:07 s, ONCE [place] 10 mg 00 :00 NOW, 1 Medical dose, [place] Branch 07/25/19 at 2030, Routine LR 1000 mL 0 2020- No 2mU/min 2-40 Uni vers + oxytocin 07-25 vinnie-unit it y of 20 units IV 01:15: 20:03 s/min [place] Solution 00 :32 (6-120 Medical mL/hr), IV Branch Infusion, CONTINUOUS , Starting 07/25/19 at 2015
In fuse IV through a controlled infusion pump at a proximal port on the peripheral IV line.&nbsp ;&nbsp ;Start at 2 vinnie-unit s/min and increase by 2 vinnie-unit s/min every 20 minutes according to oxytocin policy 7.11.52.&n bsp; Going over 20 vinnie-unit s/min requires faculty approval.& amp;nbsp;& nbsp;Max 40 vinnie-unit s/min.
sodium 2020-0 2020- No 30mL 30 mL, Univers citrate-cit 07-2513 Oral, ity of sabrina acid 00:04: 10:59 PRE-PROCED [place] (BICITRA) 20 :00 URE ONCE, Medic al 500-334 1 dose, Branch mg/5 mL Starting solution 30 Sun mL 07/25/19 at 1904, Until Discontinu ed, Routine, Surgery/Pr ocedure lactated 2019-0 2020- No 500mL at 999 Unive rs ringers IV 07-25 mL/hr, 500 it y of infusion 00:04: 20:03 mL, IV [place] 500 mL 19 :32 Infusion, Medical PRN - SEE Branch INSTRUCTIO NS, Starting 07/25/19 at 1904, Until 07/26/19 at 1503, Routine labetalol 2019-2019- No 20mg 20 mg, Unive rs (NORMODYNE) 07-24 Slow IV ity of injection 23:17: 23:19 Push, [place] 20 mg 00 :00 ONCE, 1 Medical dose, [facility] 07/25/19 at 1830, KARIS D5W 0.45% 2019-0 2020- No 1000mL at 100 Uni vers NaCl 07-24 mL/hr, ity of (1/2NS) IV 20:15: 20:03 1,000 mL, [place] infusion 00 :32 IV Medical 1,000 mL Infusion, Branch CONTINUOUS , Starting 07/25/19 at 1515, Until 07/26/19 at 1503, KARIS magnesium 2019-0 2020- No 2g/h 2 g/hr (25 U nivers sulfate in 07-24 mL/hr), at it y of LR 40 20:15: 08:14 25 mL/hr, [place] gram/500 mL 00 :00 IV Medical IV Solution Infusion, Bra nch CONTINUOUS , Starting 07/25/19 at 1515, Until 07/26/19 at 0314, KARIS Blood 2020-0 Yes [id number] Use as Univer s Pressure 4-02 directed ity of Monitor 00:00: [place] (BLOOD 00 Medical PRESSURE Branch KIT) Kit Blood 2020-0 Yes [id number] Use as Univer s Pressure 4-02 directed ity of Monitor 00:00: [place] (BLOOD 00 Medical PRESSURE Branch KIT) Kit Blood 2020-0 Yes [id number] Use as Univer s Pressure 4-02 directed ity of Monitor 00:00: [place] (BLOOD 00 Medical PRESSURE Branch KIT) Kit Blood 2020-0 2020- No [id number] Use as Unive rs Pressure 4-02 04-15 directed ity of Monitor 00:00: 00:00 [place] (BLOOD 00 :00 Medical PRESSURE Branch KIT) Kit MELATONIN 2020-0 Yes Take by Unive rs ORAL 3-15 mouth. ity of 05:33: [address] MELATONIN 2020-0 Yes Take by Unive rs ORAL 3-15 mouth. ity of 05:33: [address] MELATONIN 2020-0 Yes Take by Unive rs ORAL 3-15 mouth. ity of 05:33: [address] MELATONIN 2020-0 Yes Take by Unive rs ORAL 3-15 mouth. ity of 05:33: [address] MELATONIN 2020-0 Yes Take by Unive rs ORAL 3-15 mouth. ity of 05:33: [address] MELATONIN 2020-0 Yes Take by Unive rs ORAL 3-15 mouth. ity of 05:33: [address] MELATONIN 2020-0 Yes Take by Unive rs ORAL 3-15 mouth. ity of 05:33: [place] [address] Medical Branch cefTRIAXone 2020-0 2020- No 1000mg 1,000 mg, Univers (ROCEPHIN) 2-10 -10 IV ity of 1,000 mg in 03:30: 03:05 Model, [place] NaCl 0.9% 00 :00 ONCE, 1 Medical (NS) 50 mL dose, Sun Bran ch MINI-BAG 05/23/19 at 2130, 50 mL
Reas on for Anti-Infec tive: Documented Infection< br>Documen elisabeth Infection Site: Urine
D uration of Therapy: Other (see Comments) proMETHazin 2020-0 Yes [id number] 25mg Take 1 Univers e 25 mg 2-09 tablet by ity of tablet 00:00: mouth [place] 00 every 6 Medical (six) Branch hours as needed for Nausea and Vomiting (N/V). proMETHazin 2020-0 Yes [id number] 25mg Take 1 Univers e 25 mg 2-09 tablet by ity of tablet 00:00: mouth [place] 00 every 6 Medical (six) Branch hours as needed for Nausea and Vomiting (N/V). proMETHazin 2020-0 Yes [id number] 25mg Take 1 Univers e 25 mg 2-09 tablet by ity of tablet 00:00: mouth [place] 00 every 6 Medical (six) Branch hours as needed for Nausea and Vomiting (N/V). proMETHazin 2020-0 Yes [id number] 25mg Take 1 Univers e 25 mg 2-09 tablet by ity of tablet 00:00: mouth [place] 00 every 6 Medical (six) Branch hours as needed for Nausea and Vomiting (N/V). proMETHazin 2020-0 Yes [id number] 25mg Take 1 Univers e 25 mg 2-09 tablet by ity of tablet 00:00: mouth [place] 00 every 6 Medical (six) Branch hours as needed for Nausea and Vomiting (N/V). proMETHazin 2020-0 Yes [id number] 25mg Take 1 Univers e 25 mg 2-09 tablet by ity of tablet 00:00: mouth [place] 00 every 6 Medical (six) Branch hours as needed for Nausea and Vomiting (N/V). proMETHazin 2020-0 Yes [id number] 25mg Take 1 Univers e 25 mg 2-09 tablet by ity of tablet 00:00: mouth [place] 00 every 6 Medical (six) Branch hours as needed for Nausea and Vomiting (N/V). proMETHazin 2020-0 Yes [id number] 25mg Take 1 Univers e 25 mg 2-09 tablet by ity of tablet 00:00: mouth [place] 00 every 6 Medical (six) Branch hours as needed for Nausea and Vomiting (N/V). proMETHazin 2020-0 Yes [id number] 25mg Take 1 Univers e 25 mg 2-09 tablet by ity of tablet 00:00: mouth [place] 00 every 6 Medical (six) Branch hours as needed for Nausea and Vomiting (N/V). proMETHazin 2020-0 Yes [id number] 25mg Take 1 Univers e 25 mg 2-09 tablet by ity of tablet 00:00: mouth [place] 00 every 6 Medical (six) Branch hours as needed for Nausea and Vomiting (N/V). proMETHazin 2020-0 Yes [id number] 25mg Take 1 Univers e 25 mg 2-09 tablet by ity of tablet 00:00: mouth [place] 00 every 6 Medical (six) Branch hours as needed for Nausea and Vomiting (N/V). proMETHazin 2020-0 Yes [id number] 25mg Take 1 Univers e 25 mg 2-09 tablet by ity of tablet 00:00: mouth [place] 00 every 6 Medical (six) Branch hours as needed for Nausea and Vomiting (N/V). proMETHazin 2020-0 Yes [id number] 25mg Take 1 Univers e 25 mg 2-09 tablet by ity of tablet 00:00: mouth [place] 00 every 6 Medical (six) Branch hours as needed for Nausea and Vomiting (N/V). proMETHazin 2020-0 Yes [id number] 25mg Take 1 Univers e 25 mg 2-09 tablet by ity of tablet 00:00: mouth [place] 00 every 6 Medical (six) Branch hours as needed for Nausea and Vomiting (N/V). proMETHazin 2020-0 Yes [id number] 25mg Take 1 Univers e 25 mg 2-09 tablet by ity of tablet 00:00: mouth [place] 00 every 6 Medical (six) Branch hours as needed for Nausea and Vomiting (N/V). proMETHazin 2020-0 2020- No [id number] 25mg Take 1 Univers e 25 mg 2-09 04-12 tablet by ity of tablet 00:00: 00:00 mouth [place] 00 :00 every 6 Medical (six) Branch hours as needed for Nausea and Vomiting (N/V). promethazin 2020-0 2020- No [id number] 25mg Take 20 mL Univers e 6.25 mg/5 2-09 03-01 by mouth ity of mL solution 00:00: 05:59 every 6 [place] 00 :00 (six) Medical hours as Branch needed for Nausea and Vomiting (N/V) for up to 20 days. promethazin 2020-0 2020- No [id number] 25mg Take 20 mL Univers e 6.25 mg/5 2-09 03-01 by mouth ity of mL solution 00:00: 05:59 every 6 [place] 00 :00 (six) Medical hours as Branch needed for Nausea and Vomiting (N/V) for up to 20 days. promethazin 2020-0 2020- No [id number] 25mg Take 20 mL Univers e 6.25 mg/5 05-2301 by mouth ity of mL solution 00:00: 05:59 every 6 [place] 00 :00 (six) Medical hours as Branch needed for Nausea and Vomiting (N/V) for up to 20 days. promethazin 2020-0 2020- No [id number] 25mg Take 20 mL Univers e 6.25 mg/5 05-23 by mouth ity of mL solution 00:00: 05:59 every 6 [place] 00 :00 (six) Medical hours as Branch needed for Nausea and Vomiting (N/V) for up to 20 days. promethazin 2020-0 2020- No [id number] 25mg Take 20 mL Univers e 6.25 mg/5 05-23 by mouth ity of mL solution 00:00: 05:59 every 6 [place] 00 :00 (six) Medical hours as Branch needed for Nausea and Vomiting (N/V) for up to 20 days. cephALEXin 2020-0 2020- No [id number] 500mg Take 10 mL Univers 250 mg/5 mL 05-2320 by mouth 3 i ty of suspension 00:00: 05:59 (three) [place] 00 :00 times Medical daily for Branch 10 days. cephALEXin 2020-0 2020- No [id number] 500mg Take 10 mL [facility] 250 mg/5 mL 05-2320 by mouth 3 i ty of suspension 00:00: 05:59 (three) [place] 00 :00 times Medical daily for Branch 10 days. cephALEXin 2020-0 2020- No [id number] 500mg Take 10 mL [facility] 250 mg/5 mL 05-2320 by mouth 3 i ty of suspension 00:00: 05:59 (three) [place] 00 :00 times Medical daily for Branch 10 days. cephALEXin 2020-0 2020- No [id number] 500mg Take 10 mL [facility] 250 mg/5 mL 05-2320 by mouth 3 i ty of suspension 00:00: 05:59 (three) [place] 00 :00 times Medical daily for Branch 10 days. cephALEXin 2020-0 2020- No [id number] 500mg Take 10 mL [facility] 250 mg/5 mL 05-23 by mouth 3 i ty of suspension 00:00: 05:59 (three) [place] 00 :00 times Medical daily for Branch 10 days. cephALEXin 2020- No [id number] 500mg Take 1 Univers (KEFLEX) 05-23 capsule by ity of 500 mg 00:00: 00:00 mouth 3 [place] capsule 00 :00 (three) Medical times Branch daily for 10 days. MELATONIN 2018-04 Yes Take by Unive rs ORAL 0-03 mouth. ity of 14:36: [address] MELATONIN 2018-04 Yes Take by Unive rs ORAL 0-03 mouth. ity of 14:36: [address] MELATONIN 2018-04 Yes Take by Unive rs ORAL 0-03 mouth. ity of 14:36: [address] MELATONIN 2018-04 Yes Take by Unive rs ORAL 0-03 mouth. ity of 14:36: [address] MELATONIN 2018-04 Yes Take by Unive rs ORAL 0-03 mouth. ity of 14:36: [address] MELATONIN 2018-04 Yes Take by Unive rs ORAL 0-03 mouth. ity of 14:36: [address] MELATONIN 2018-04 Yes Take by Unive rs ORAL 0-03 mouth. ity of 14:36: [address] MELATONIN 2018-04 Yes Take by Unive rs ORAL 0-03 mouth. ity of 14:36: [address] MELATONIN 2018-04 Yes Take by Unive rs ORAL 0-03 mouth. ity of 14:36: [address] 2018-04 Yes [id number] 1{packe Take 1 Univers vit 0-03 t} Packet by ity of 33-iron-fol 00:00: mouth [place] ic-dha 00 daily. [facility] 29 mg iron-1 mg -250 mg combo pack 2018-04 Yes [id number] 1{packe Take 1 Univers vit 0-03 t} Packet by ity of 33-iron-fol 00:00: mouth [place] ic-dha 00 daily. Medical ([facility] Branch + DHA) 29 mg iron-1 mg -250 mg combo pack 2018-04 Yes [id number] 1{packe Take 1 Univers vit 0-03 t} Packet by ity of 33-iron-fol 00:00: mouth [place] ic-dha 00 daily. Medical ([facility] Branch + DHA) 29 mg iron-1 mg -250 mg combo pack 2018-04 Yes [id number] 1{packe Take 1 Univers vit 0-03 t} Packet by ity of 33-iron-fol 00:00: mouth [place] ic-dha 00 daily. Medical ([facility] Branch + DHA) 29 mg iron-1 mg -250 mg combo pack 2018-04 Yes [id number] 1{packe Take 1 Univers vit 0-03 t} Packet by ity of 33-iron-fol 00:00: mouth [place] ic-dha 00 daily. Medical ([facility] Branch + DHA) 29 mg iron-1 mg -250 mg combo pack 2018-04 Yes [id number] 1{packe Take 1 Univers vit 0-03 t} Packet by ity of 33-iron-fol 00:00: mouth [place] ic-dha 00 daily. Medical ([facility] Branch + DHA) 29 mg iron-1 mg -250 mg combo pack 2018-04 Yes [id number] 1{packe Take 1 Univers vit 0-03 t} Packet by ity of 33-iron-fol 00:00: mouth [place] ic-dha 00 daily. Medical ([facility] Branch + DHA) 29 mg iron-1 mg -250 mg combo pack 2018-04 Yes [id number] 1{packe Take 1 Univers vit 0-03 t} Packet by ity of 33-iron-fol 00:00: mouth [place] ic-dha 00 daily. Medical ([facility] Branch + DHA) 29 mg iron-1 mg -250 mg combo pack 2018-04 Yes [id number] 1{packe Take 1 Univers vit 0-03 t} Packet by ity of 33-iron-fol 00:00: mouth [place] ic-dha 00 daily. Medical ([facility] Branch + DHA) 29 mg iron-1 mg -250 mg combo pack 2018-04 Yes [id number] 1{packe Take 1 Univers vit 0-03 t} Packet by ity of 33-iron-fol 00:00: mouth [place] ic-dha 00 daily. Medical ([facility] Branch + DHA) 29 mg iron-1 mg -250 mg combo pack 2018-04 Yes [id number] 1{packe Take 1 Univers vit 0-03 t} Packet by ity of 33-iron-fol 00:00: mouth [place] ic-dha 00 daily. Medical ([facility] Branch + DHA) 29 mg iron-1 mg -250 mg combo pack 2018-04 Yes [id number] 1{packe Take 1 Univers vit 0-03 t} Packet by ity of 33-iron-fol 00:00: mouth [place] ic-dha 00 daily. Medical ([facility] Branch + DHA) 29 mg iron-1 mg -250 mg combo pack 2018-04 Yes [id number] 1{packe Take 1 Univers vit 0-03 t} Packet by ity of 33-iron-fol 00:00: mouth [place] ic-dha 00 daily. Medical ([facility] Branch + DHA) 29 mg iron-1 mg -250 mg combo pack 2018-04 Yes [id number] 1{packe Take 1 Univers vit 0-03 t} Packet by ity of 33-iron-fol 00:00: mouth [place] ic-dha 00 daily. Medical ([facility] Branch + DHA) 29 mg iron-1 mg -250 mg combo pack 2018-04 Yes [id number] 1{packe Take 1 Univers vit 0-03 t} Packet by ity of 33-iron-fol 00:00: mouth [place] ic-dha 00 daily. Medical ([facility] Branch + DHA) 29 mg iron-1 mg -250 mg combo pack 2018-04 Yes [id number] 1{packe Take 1 Univers vit 0-03 t} Packet by ity of 33-iron-fol 00:00: mouth [place] ic-dha 00 daily. Medical ([facility] Branch + DHA) 29 mg iron-1 mg -250 mg combo pack 2018-04 2020- No [id number] 1{packe Take 1 Univers vit 0-03 04-15 t} Packet by ity of 33-iron-fol 00:00: 00:00 mouth [place] ic-dha 00 :00 daily. Medical ([facility] Branch + DHA) 29 mg iron-1 mg -250 mg combo pack mupirocin 2 2019- No [id number] Apply to Univers % ointment 11-26- area(s) 3 ity of 00:00: 04:59 (three) [place] 00 :00 times Medical daily for Branch 7 days. mupirocin 2 2019- No [id number] Apply to Univers % ointment 11-26 area(s) 3 ity of 00:00: 04:59 (three) [place] 00 :00 times Medical daily for Branch 7 days. mupirocin 2019- No [id number] Apply to Univers (BACTROBAN) 11-25 area(s) 3 it y of 2 % cream 00:00: 04:59 (three) [place] 00 :00 times Medical daily for Branch 7 days. mupirocin 2019- No [id number] Apply to Univers (BACTROBAN) 11-25 area(s) 3 it y of 2 % cream 00:00: 04:59 (three) [place] 00 :00 times Medical daily for Branch 7 days. mupirocin 2018- No [id number] Apply to Univers (BACTROBAN) 11-25 area(s) 3 it y of 2 % cream 00:00: 04:59 (three) [place] 00 :00 times Medical daily for Branch 7 days. mupirocin 2019- No [id number] Apply to Univers (BACTROBAN) 11-25 area(s) 3 it y of 2 % cream 00:00: 00:00 (three) [place] 00 :00 times Medical daily for Branch 7 days. azithromyci 2018- Yes Take 500 Un manav n 0-29 mg po ity of (ZITHROMAX) 00:00: today then [place] 200 mg/5 mL 00 250 mg po Med ical suspension qd on days Bra [facility] #2-#5 azithromyci 2018- 2019- No Take 500 U nivers n 0-29 08-14 mg po ity of (ZITHROMAX) 00:00: 00:00 today then [place] 200 mg/5 mL 00 :00 250 mg po Med ical suspension qd on days Bra [facility] #2-#5 azithromyci 2018- 2019- No Take 500 U nivers n 0-29 08-14 mg po ity of (ZITHROMAX) 00:00: 00:00 today then [place] 200 mg/5 mL 00 :00 250 mg po Med ical suspension qd on days Bra [facility] #2-#5 metronidazo metronidazo No metronidaz [facility] le 0.75 % le 0.75 % ole 0.75 % Medical vaginal gel vaginal gel vaginal Insert by Insert by gel Insert vaginal vaginal by vaginal route for 5 route for 5 route for days. days. 5 days. metronidazo metronidazo No metronidaz [facility] le 500 mg le 500 mg ole 500 mg Medical tablet take tablet take tablet one tab bid one tab bid take one for 7 days for 7 days tab bid for 7 days terconazole terconazole No terconazol [facility] 0.4 % 0.4 % e 0.4 % Medical vaginal vaginal vaginal cream cream cream INSERT 1 INSERT 1 INSERT 1 APPLICATORF APPLICATORF APPLICATOR UL EVERY UL EVERY FUL EVERY DAY BY DAY BY DAY BY VAGINAL VAGINAL VAGINAL ROUTE FOR 7 ROUTE FOR 7 ROUTE FOR DAYS. DAYS. 7 DAYS. chlorhexidi chlorhexidi No chlorhexid [facility] ne ne ine Medical gluconate gluconate gluconate 0.12 % 0.12 % 0.12 % mouthwash mouthwash mouthwash AFTER AFTER AFTER BRUSHING BRUSHING BRUSHING TEETH, TEETH, TEETH, SWISH 15 ML SWISH 15 ML SWISH 15 IN MOUTH IN MOUTH ML IN FOR 30 FOR 30 MOUTH FOR SECONDS, SECONDS, 30 THEN SPIT THEN SPIT SECONDS, OUT. USE OUT. USE THEN SPIT TWICE TWICE OUT. USE DAILY. DAILY. TWICE DAILY. Clindamycin Clindamycin No Clindamyci [facility] Medic al 75 mg/5 mL 75 mg/5 mL Pediatric oral oral 75 mg/5 mL solution solution oral TAKE TWO TAKE TWO solution (2) (2) TAKE TWO TEASPOONFUL TEASPOONFUL (2) (S) BY (S) BY TEASPOONFU MOUTH THREE MOUTH THREE L(S) BY TIMES A DAY TIMES A DAY MOUTH FOR 5 DAYS FOR 5 DAYS THREE (DISCARD (DISCARD TIMES A REMAINDER). REMAINDER). DAY FOR 5 DAYS (DISCARD REMAINDER) . metronidazo metronidazo No metronidaz [facility] le 0.75 % le 0.75 % ole 0.75 % Medical vaginal gel vaginal gel vaginal Insert by Insert by gel Insert vaginal vaginal by vaginal route for 5 route for 5 route for days. days. 5 days. metronidazo metronidazo No metronidaz [facility] le 500 mg le 500 mg ole 500 mg Medical tablet take tablet take tablet one tab bid one tab bid take one for 7 days for 7 days tab bid for 7 days terconazole terconazole No terconazol [facility] 0.4 % 0.4 % e 0.4 % Medical vaginal vaginal vaginal cream cream cream INSERT 1 INSERT 1 INSERT 1 APPLICATORF APPLICATORF APPLICATOR UL EVERY UL EVERY FUL EVERY DAY BY DAY BY DAY BY VAGINAL VAGINAL VAGINAL ROUTE FOR 7 ROUTE FOR 7 ROUTE FOR DAYS. DAYS. 7 DAYS. No Known No Known No [facility] Medications Medications [email or web address] - [facility] No known No [facility] No [facility] No [facility] No known No [facility] No known [facility] No known No [facility] medications [facility] Immunizations Ordered Immunization Filled Immunization Date Status Commen ts Source Name Name TDAP (ADACEL) VACCINE 2019-06-16 Completed [facility] 00:[facility]00 [facility] TDAP (ADACEL) VACCINE 2019-06-16 Completed [facility] 00:00:00 [facility] TDAP (ADACEL) VACCINE 2019-06-16 Completed [facility] 00:00:00 [facility] TDAP (ADACEL) VACCINE 2019-06-16 Completed [facility] 00:00:00 [facility] TDAP (ADACEL) VACCINE 2019-06-16 Completed [facility] 00:00:00 [facility] TDAP (ADACEL) VACCINE 2019-06-16 Completed [facility] 00:00:00 [facility] TDAP (ADACEL) VACCINE 2019-06-16 Completed [facility] 00:00:00 [facility] TDAP (ADACEL) VACCINE 2019-06-16 Completed [facility] 00:00:00 [facility] TDAP (ADACEL) VACCINE 2019-06-16 Completed [facility] 00:00:00 [facility] TDAP (ADACEL) VACCINE 2019-06-16 Completed [facility] 00:00:00 [facility] TDAP (ADACEL) VACCINE 2019-06-16 Completed [facility] 00:00:00 [facility] TDAP (ADACEL) VACCINE 2019-06-16 Completed [facility] 00:00:00 [facility] TDAP (ADACEL) VACCINE 2019-06-16 Completed [facility] 00:00:00 [facility] TDAP (ADACEL) VACCINE 2019-06-16 Completed [facility] 00:00:00 [facility] TDAP (ADACEL) VACCINE 2019-06-16 Completed [facility] 00:00:00 [facility] TDAP (ADACEL) VACCINE 2019-06-16 Completed [facility] 00:00:00 [facility] TDAP (ADACEL) VACCINE 2019-06-16 Completed [facility] 00:00:00 [facility] TDAP (ADACEL) VACCINE 2019-06-16 Completed [facility] 00:00:00 [facility] TDAP (ADACEL) VACCINE 2019-06-16 Completed [facility] 00:00:00 [facility] TDAP (ADACEL) VACCINE 2019-06-16 Completed [facility] 00:00:00 [facility] TDAP (ADACEL) VACCINE 2019-06-16 Completed [facility] 00:00:00 [facility] TDAP (ADACEL) VACCINE 2019-06-16 Completed [facility] 00:00:00 [facility] TDAP (ADACEL) VACCINE 2019-06-16 Completed [facility] 00:00:00 [facility] TDAP (ADACEL) VACCINE 2019-06-16 Completed [facility] 00:00:00 [facility] TDAP (ADACEL) VACCINE 2019-06-16 Completed [facility] 00:00:00 [facility] TDAP (ADACEL) VACCINE 2019-06-16 Completed [facility] 00:00:00 [facility] TDAP (ADACEL) VACCINE 2019-06-16 Completed [facility] 00:00:00 [facility] TDAP (ADACEL) VACCINE 2019-06-16 Completed [facility] 00:00:00 [facility] TDAP (ADACEL) VACCINE 2019-06-16 Completed [facility] 00:00:00 [facility] TDAP (ADACEL) VACCINE 2019-06-16 Completed [facility] 00:00:00 [facility] TDAP (ADACEL) VACCINE 2019-06-16 Completed [facility] 00:00:00 [facility] TDAP (ADACEL) VACCINE 2019-06-16 Completed [facility] 00:00:00 [facility] TDAP (ADACEL) VACCINE 2019-06-16 Completed [facility] 00:00:00 [facility] TDAP (ADACEL) VACCINE 2019-06-16 Completed [facility] 00:00:00 [facility] TDAP (ADACEL) VACCINE 2019-06-16 Completed [facility] 00:00:00 [facility] TDAP (ADACEL) VACCINE 2019-06-16 Completed [facility] 00:00:00 [facility] TDAP (ADACEL) VACCINE 2019-06-16 Completed [facility] 00:00:00 [facility] TDAP (ADACEL) VACCINE 2019-06-16 Completed [facility] 00:00:00 [facility] TDAP (ADACEL) VACCINE 2019-06-16 Completed [facility] 00:00:00 [facility] TDAP (ADACEL) VACCINE 2019-06-16 Completed [facility] 00:00:00 [facility] TDAP (ADACEL) VACCINE 2019-06-16 Completed [facility] 00:00:00 [facility] TDAP (ADACEL) VACCINE 2019-06-16 Completed [facility] 00:00:00 [facility] TDAP (ADACEL) VACCINE 2019-06-16 Completed [facility] 00:00:00 [facility] TDAP (ADACEL) VACCINE 2019-06-16 Completed [facility] 00:00:00 [facility] TDAP (ADACEL) VACCINE 2019-06-16 Completed [facility] 00:00:00 [facility] TDAP (ADACEL) VACCINE 2019-06-16 Completed [facility] 00:00:00 [facility] Influenza Virus 2019-01-14 Completed [facility] of [facility] .5 mL IM 00:00:00 [facility] Influenza Virus 2019-01-14 Completed [facility] .5 mL IM 00:00:00 [facility] Influenza Virus 2019-01-14 Completed [facility] .5 mL IM 00:00:00 [facility] Influenza Virus 2019-01-14 Completed [facility] .5 mL IM 00:00:00 [facility] Influenza Virus 2019-01-14 Completed [facility] .5 mL IM 00:00:00 [facility] Influenza Virus 2019-01-14 Completed [facility] .5 mL IM 00:00:00 [facility] Influenza Virus 2019-01-14 Completed [facility] .5 mL IM 00:00:00 [facility] Influenza Virus 2019-01-14 Completed [facility] .5 mL IM 00:00:00 [facility] Influenza Virus 2019-01-14 Completed [facility] .5 mL IM 00:00:00 [facility] Influenza Virus 2019-01-14 Completed [facility] .5 mL IM 00:00:00 [facility] Influenza Virus 2019-01-14 Completed [facility] .5 mL IM 00:00:00 [facility] Influenza Virus 2019-01-14 Completed [facility] .5 mL IM 00:00:00 [facility] Influenza Virus 2019-01-14 Completed [facility] .5 mL IM 00:00:00 [facility] Influenza Virus 2019-01-14 Completed [facility] .5 mL IM 00:00:00 [facility] Influenza Virus 2019-01-14 Completed [facility] .5 mL IM 00:00:00 [facility] Influenza Virus 2019-01-14 Completed [facility] .5 mL IM 00:00:00 [facility] Influenza Virus 2019-01-14 Completed [facility] .5 mL IM 00:00:00 [facility] Influenza Virus 2019-01-14 Completed [facility] .5 mL IM 00:00:00 [facility] Influenza Virus 2019-01-14 Completed [facility] .5 mL IM 00:00:00 [facility] Influenza Virus 2019-01-14 Completed [facility] .5 mL IM 00:00:00 [facility] Influenza Virus 2019-01-14 Completed [facility] .5 mL IM 00:00:00 [facility] Influenza Virus 2019-01-14 Completed [facility] .5 mL IM 00:00:00 [facility] Influenza Virus 2019-01-14 Completed [facility] .5 mL IM 00:00:00 [facility] Influenza Virus 2019-01-14 Completed [facility] .5 mL IM 00:00:00 [facility] Influenza Virus 2019-01-14 Completed [facility] .5 mL IM 00:00:00 [facility] Influenza Virus 2019-01-14 Completed [facility] .5 mL IM 00:00:00 [facility] Influenza Virus 2019-01-14 Completed [facility] .5 mL IM 00:00:00 [facility] Influenza Virus 2019-01-14 Completed [facility] .5 mL IM 00:00:00 [facility] Influenza Virus 2019-01-14 Completed [facility] .5 mL IM 00:00:00 [facility] Influenza Virus 2019-01-14 Completed [facility] .5 mL IM 00:00:00 [facility] Influenza Virus 2019-01-14 Completed [facility] .5 mL IM 00:00:00 [facility] Influenza Virus 2019-01-14 Completed [facility] Vaccine [facility] .5 mL IM 00:00:00 [facility] Influenza Virus 2019-01-14 Completed [facility] .5 mL IM 00:00:00 [facility] Influenza Virus 2019-01-14 Completed [facility] .5 mL IM 00:00:00 [facility] Influenza Virus 2019-01-14 Completed [facility] .5 mL IM 00:00:00 [facility] Influenza Virus 2019-01-14 Completed [facility] Vaccine [facility] .5 mL IM 00:00:00 [facility] Influenza Virus 2019-01-14 Completed [facility]ine [facility] .5 mL IM 00:00:00 [facility] Influenza Virus 2019-01-14 Completed [facility]ine [facility] .5 mL IM 00:00:00 [facility] Influenza Virus 2019-01-14 Completed [facility] Vaccine Quad .5 mL IM 00:00:00 [facility] Influenza Virus 2019-01-14 Completed [facility] Vaccine Quad .5 mL IM 00:00:00 [facility] Influenza Virus 2019-01-14 Completed [facility] Vaccine Quad .5 mL IM 00:00:00 [facility] Influenza Virus 2019-01-14 Completed [facility] Vaccine [facility] .5 mL IM 00:00:00 [facility] Influenza Virus 2019-01-14 Completed [facility] Vaccine Quad .5 mL IM 00:00:00 [facility] Influenza Virus 2019-01-14 Completed [facility] Vaccine Quad .5 mL IM 00:00:00 [facility] Influenza Virus 2019-01-14 Completed [facility] Vaccine Quad .5 mL IM 00:00:00 [facility] Influenza Virus 2019-01-14 Completed [facility] Vaccine Quad .5 mL IM 00:00:00 [facility] Influenza Virus 2019-01-14 Completed [facility] Vaccine Quad .5 mL IM 00:00:00 [facility] Influenza Virus 2019-01-14 Completed [facility]ine Quad .5 mL IM 00:00:00 [facility] Influenza Virus 2019-01-14 Completed [facility] Vaccine Quad .5 mL IM 00:00:00 [facility] Influenza Virus 2019-01-14 Completed [facility] Vaccine Quad .5 mL IM 00:00:00 [facility] Influenza Virus 2019-01-14 Completed [facility] Vaccine Quad .5 mL IM 00:00:00 [facility] Influenza Virus 2019-01-14 Completed [facility] Vaccine Quad .5 mL IM 00:00:00 [facility] Meningococcal 2017-09-11 Completed [facility] of Polysaccharide 00:00:00 [facility] judy (groups A, C, Y and Branc h W-135) conjugate vaccine (MCV4P) Meningococcal B, OMV 2017-09-11 Completed Univ ersity of 00:00:00 [facility] Meningococcal 2017-09-11 Completed [facility] Polysaccharide 00:00:00 [facility] (groups A, C, Y and Branc h W-135) conjugate vaccine (MCV4P) Meningococcal B, OMV 2017-09-11 Completed [facility] ersity of 00:00:00 [facility] Meningococcal 2017-09-11 Completed [facility] Polysaccharide 00:00:00 [place] [facility] (groups A, C, Y and Branc h W-135) conjugate vaccine (MCV4P) Meningococcal 2017-09-11 Completed [facility] Polysaccharide 00:00:00 [facility] (groups A, C, Y and Branc h W-135) conjugate vaccine (MCV4P) Meningococcal B, OMV 2017-09-11 Completed [facility] ersity of 00:00:00 [facility] Meningococcal B, OMV 2017-09-11 Completed Univ ersity of 00:00:00 [facility] Meningococcal 2017-09-11 Completed [facility] Polysaccharide 00:00:00 [facility] (groups A, C, Y and Branc h W-135) conjugate vaccine (MCV4P) Meningococcal B, OMV 2017-09-11 Completed [facility] ersity of 00:00:00 [facility] Meningococcal 2017-09-11 Completed [facility] of Polysaccharide 00:00:00 [facility] (groups A, C, Y and Branc h W-135) conjugate vaccine (MCV4P) Meningococcal B, OMV 2017-09-11 Completed [facility] ers[facility] of 00:00:00 [facility] Meningococcal 2017-09-11 Completed [facility] of Polysaccharide 00:00:00 [facility] (groups A, C, Y and Branc h W-135) conjugate vaccine (MCV4P) Meningococcal B, OMV 2017-09-11 Completed [facility] ersity of 00:00:00 [facility] Meningococcal 2017-09-11 Completed [facility] of Polysaccharide 00:00:00 [facility] (groups A, C, Y and Branc h W-135) conjugate vaccine (MCV4P) Meningococcal B, OMV 2017-09-11 Completed [facility] ersity of 00:00:00 [facility] Meningococcal 2017-09-11 Completed [facility] of Polysaccharide 00:00:00 [facility] (groups A, C, Y and Branc h W-135) conjugate vaccine (MCV4P) Meningococcal B, OMV 2017-09-11 Completed [facility] ers[facility] of 00:00:00 [facility] Meningococcal 2017-09-11 Completed [facility] Polysaccharide 00:00:00 [facility] (groups A, C, Y and Branc h W-135) conjugate vaccine (MCV4P) Meningococcal B, OMV 2017-09-11 Completed [facility] ersity of 00:00:00 [facility] Meningococcal 2017-09-11 Completed [facility] of Polysaccharide 00:00:00 [facility] (groups A, C, Y and Branc h W-135) conjugate vaccine (MCV4P) Meningococcal B, OMV 2017-09-11 Completed [facility] ersity of 00:00:00 [facility] Meningococcal 2017-09-11 Completed [facility] of Polysaccharide 00:00:00 [facility] (groups A, C, Y and Branc h W-135) conjugate vaccine (MCV4P) Meningococcal B, OMV 2017-09-11 Completed [facility] ersity of 00:00:00 [facility] Meningococcal 2017-09-11 Completed [facility] of Polysaccharide 00:00:00 [facility] (groups A, C, Y and Branc h W-135) conjugate vaccine (MCV4P) Meningococcal B, OMV 2017-09-11 Completed [facility] ersity of 00:00:00 [facility] Meningococcal 2017-09-11 Completed [facility] of Polysaccharide 00:00:00 [facility] (groups A, C, Y and Branc h W-135) conjugate vaccine (MCV4P) Meningococcal B, OMV 2017-09-11 Completed [facility] ersity of 00:00:00 [facility] Meningococcal 2017-09-11 Completed [facility] of Polysaccharide 00:00:00 [facility] (groups A, C, Y and Branc h W-135) conjugate vaccine (MCV4P) Meningococcal B, OMV 2017-09-11 Completed [facility] ersity of 00:00:00 [facility] Meningococcal 2017-09-11 Completed [facility] of Polysaccharide 00:00:00 [facility] (groups A, C, Y and Branc h W-135) conjugate vaccine (MCV4P) Meningococcal B, OMV 2017-09-11 Completed [facility] ersity of 00:00:00 [facility] Meningococcal 2017-09-11 Completed [facility] of Polysaccharide 00:00:00 [facility] (groups A, C, Y and Branc h W-135) conjugate vaccine (MCV4P) Meningococcal B, OMV 2017-09-11 Completed [facility] ersity of 00:00:00 [facility] Meningococcal 2017-09-11 Completed [facility] of Polysaccharide 00:00:00 [facility] (groups A, C, Y and Branc h W-135) conjugate vaccine (MCV4P) Meningococcal B, OMV 2017-09-11 Completed [facility] ersity of 00:00:00 [facility] Meningococcal 2017-09-11 Completed [facility] of Polysaccharide 00:00:00 [facility] (groups A, C, Y and Branc h W-135) conjugate vaccine (MCV4P) Meningococcal B, OMV 2017-09-11 Completed [facility] ersity of 00:00:00 [facility] Meningococcal 2017-09-11 Completed [facility] Polysaccharide 00:00:00 [facility] (groups A, C, Y and Branc h W-135) conjugate vaccine (MCV4P) Meningococcal B, OMV 2017-09-11 Completed [facility] ersity of 00:00:00 [facility] Meningococcal 2017-09-11 Completed [facility] of Polysaccharide 00:00:00 [facility] (groups A, C, Y and Branc h W-135) conjugate vaccine (MCV4P) Meningococcal B, OMV 2017-09-11 Completed [facility] ersity of 00:00:00 [facility] Meningococcal 2017-09-11 Completed [facility] of Polysaccharide 00:00:00 [facility] (groups A, C, Y and Branc h W-135) conjugate vaccine (MCV4P) Meningococcal B, OMV 2017-09-11 Completed [facility] ersity of 00:00:00 [facility] Meningococcal 2017-09-11 Completed [facility] of Polysaccharide 00:00:00 [facility] (groups A, C, Y and Branc h W-135) conjugate vaccine (MCV4P) Meningococcal B, OMV 2017-09-11 Completed [facility] ers[facility] of 00:00:00 [facility] Meningococcal 2017-09-11 Completed [facility] Polysaccharide 00:00:00 [facility] (groups A, C, Y and Branc h W-135) conjugate vaccine (MCV4P) Meningococcal B, OMV 2017-09-11 Completed [facility] ers[facility] of 00:00:00 [facility] Meningococcal 2017-09-11 Completed [facility] Polysaccharide 00:00:00 [facility] (groups A, C, Y and Branc h W-135) conjugate vaccine (MCV4P) Meningococcal B, OMV 2017-09-11 Completed [facility] ersity of 00:00:00 [facility] Meningococcal 2017-09-11 Completed [facility] Polysaccharide 00:00:00 [facility] (groups A, C, Y and Branc h W-135) conjugate vaccine (MCV4P) Meningococcal B, OMV 2017-09-11 Completed [facility] ers[facility] of 00:00:00 [facility] Meningococcal 2017-09-11 Completed [facility] Polysaccharide 00:00:00 [facility] (groups A, C, Y and Branc h W-135) conjugate vaccine (MCV4P) Meningococcal B, OMV 2017-09-11 Completed [facility] ers[facility] of 00:00:00 [facility] Meningococcal 2017-09-11 Completed [facility] Polysaccharide 00:00:00 [facility] (groups A, C, Y and Branc h W-135) conjugate vaccine (MCV4P) Meningococcal B, OMV 2017-09-11 Completed [facility] of 00:00:00 [facility] Meningococcal 2017-09-11 Completed [facility] of Polysaccharide 00:00:00 [facility] (groups A, C, Y and Branc h W-135) conjugate vaccine (MCV4P) Meningococcal B, OMV 2017-09-11 Completed [facility] of 00:00:00 [facility] Meningococcal 2017-09-11 Completed [facility] Polysaccharide 00:00:00 [facility] (groups A, C, Y and Branc h W-135) conjugate vaccine (MCV4P) Meningococcal B, OMV 2017-09-11 Completed [facility] of 00:00:00 [facility] Meningococcal 2017-09-11 Completed [facility] Polysaccharide 00:00:00 [facility] (groups A, C, Y and Branc h W-135) conjugate vaccine (MCV4P) Meningococcal B, OMV 2017-09-11 Completed [facility] ers[facility] of 00:00:00 [facility] Meningococcal 2017-09-11 Completed [facility] of Polysaccharide 00:00:00 [facility] (groups A, C, Y and Branc h W-135) conjugate vaccine (MCV4P) Meningococcal B, OMV 2017-09-11 Completed [facility] ers[facility] of 00:00:00 [facility] Meningococcal 2017-09-11 Completed [facility] of Polysaccharide 00:00:00 [facility] (groups A, C, Y and Branc h W-135) conjugate vaccine (MCV4P) Meningococcal B, OMV 2017-09-11 Completed [facility] of 00:00:00 [facility] Meningococcal 2017-09-11 Completed [facility] Polysaccharide 00:00:00 [facility] (groups A, C, Y and Branc h W-135) conjugate vaccine (MCV4P) Meningococcal B, OMV 2017-09-11 Completed [facility] of 00:00:00 [facility] Meningococcal 2017-09-11 Completed [facility] Polysaccharide 00:00:00 [facility] (groups A, C, Y and Branc h W-135) conjugate vaccine (MCV4P) Meningococcal B, OMV 2017-09-11 Completed [facility] ers[facility] of 00:00:00 [facility] Meningococcal 2017-09-11 Completed [facility] of Polysaccharide 00:00:00 [place] [facility] (groups A, C, Y and Branc h W-135) conjugate vaccine (MCV4P) Meningococcal B, OMV 2017-09-11 Completed [facility] of 00:00:00 [facility] Meningococcal 2017-09-11 Completed [facility] of Polysaccharide 00:00:00 [place] [facility] (groups A, C, Y and Branc h W-135) conjugate vaccine (MCV4P) Meningococcal B, OMV 2017-09-11 Completed [facility] of 00:00:00 [facility] Meningococcal 2017-09-11 Completed [facility] of Polysaccharide 00:00:00 [place] [facility] (groups A, C, Y and Branc h W-135) conjugate vaccine (MCV4P) Meningococcal B, OMV 2017-09-11 Completed [facility] of 00:00:00 [facility] Meningococcal 2017-09-11 Completed [facility] of Polysaccharide 00:00:00 [place] [facility] (groups A, C, Y and Branc h W-135) conjugate vaccine (MCV4P) Meningococcal B, OMV 2017-09-11 Completed [facility] of 00:00:00 [facility] Meningococcal 2017-09-11 Completed [facility] Polysaccharide 00:00:00 [place] [facility] (groups A, C, Y and Branc h W-135) conjugate vaccine (MCV4P) Meningococcal B, OMV 2017-09-11 Completed [facility] of 00:00:00 [facility] Meningococcal 2017-09-11 Completed [facility] Polysaccharide 00:00:00 [place] [facility] (groups A, C, Y and Branc h W-135) conjugate vaccine (MCV4P) Meningococcal B, OMV 2017-09-11 Completed [facility] of 00:00:00 [facility] Meningococcal 2017-09-11 Completed [facility] Polysaccharide 00:00:00 [place] [facility] (groups A, C, Y and Branc h W-135) conjugate vaccine (MCV4P) Meningococcal B, OMV 2017-09-11 Completed [facility] of 00:00:00 [facility] Meningococcal 2017-09-11 Completed [facility] of Polysaccharide 00:00:00 [place] [facility] (groups A, C, Y and Branc h W-135) conjugate vaccine (MCV4P) Meningococcal B, OMV 2017-09-11 Completed [facility] of 00:00:00 [facility] Meningococcal 2017-09-11 Completed [facility] Polysaccharide 00:00:00 [place] [facility] (groups A, C, Y and Branc h W-135) conjugate vaccine (MCV4P) Meningococcal B, OMV 2017-09-11 Completed [facility] of 00:00:00 [facility] Meningococcal 2017-09-11 Completed [facility] of Polysaccharide 00:00:00 [place] [facility] (groups A, C, Y and Branc h W-135) conjugate vaccine (MCV4P) Meningococcal B, OMV 2017-09-11 Completed [facility] of 00:00:00 [facility] Meningococcal 2017-09-11 Completed [facility] Polysaccharide 00:00:00 [place] [facility] (groups A, C, Y and Branc h W-135) conjugate vaccine (MCV4P) Meningococcal B, OMV 2017-09-11 Completed [facility] of 00:00:00 [facility] Meningococcal 2017-09-11 Completed [facility] of Polysaccharide 00:00:00 [place] [facility] (groups A, C, Y and Branc h W-135) conjugate vaccine (MCV4P) Meningococcal B, OMV 2017-09-11 Completed [facility] of 00:00:00 [facility] Meningococcal 2017-09-11 Completed [facility] of Polysaccharide 00:00:00 [place] [facility] (groups A, C, Y and Branc h W-135) conjugate vaccine (MCV4P) Meningococcal B, OMV 2017-09-11 Completed [facility] of 00:00:00 [facility] Meningococcal 2017-09-11 Completed [facility] Polysaccharide 00:00:00 [place] [facility] (groups A, C, Y and Branc h W-135) conjugate vaccine (MCV4P) Meningococcal B, OMV 2017-09-11 Completed [facility] of 00:00:00 [facility] Meningococcal 2017-09-11 Completed [facility] Polysaccharide 00:00:00 [place] [facility] (groups A, C, Y and Branc h W-135) conjugate vaccine (MCV4P) Meningococcal B, OMV 2017-09-11 Completed [facility] of 00:00:00 [facility] Meningococcal 2017-09-11 Completed [facility] Polysaccharide 00:00:00 [place] [facility] (groups A, C, Y and Branc h W-135) conjugate vaccine (MCV4P) Meningococcal B, OMV 2017-09-11 Completed [facility] of 00:00:00 [facility] Meningococcal 2017-09-11 Completed [facility] of Polysaccharide 00:00:00 [place] [facility] (groups A, C, Y and Branc h W-135) conjugate vaccine (MCV4P) Meningococcal B, OMV 2017-09-11 Completed [facility] of 00:00:00 [facility] Meningococcal 2017-09-11 Completed [facility] of Polysaccharide 00:00:00 [place] [facility] (groups A, C, Y and Branc h W-135) conjugate vaccine (MCV4P) Meningococcal B, OMV 2017-09-11 Completed [facility] ers[facility] of 00:00:00 [facility] Meningococcal 2017-09-11 Completed [facility] Polysaccharide 00:00:00 [facility] (groups A, C, Y and Branc h W-135) conjugate vaccine (MCV4P) Meningococcal B, OMV 2017-09-11 Completed [facility] 00:00:00 [facility] Meningococcal 2017-09-11 Completed [facility] Polysaccharide 00:00:00 [facility] (groups A, C, Y and Branc h W-135) conjugate vaccine (MCV4P) Meningococcal B, OMV 2017-09-11 Completed [facility] ers[facility] of 00:00:00 [facility] Meningococcal 2017-09-11 Completed [facility] Polysaccharide 00:00:00 [facility] (groups A, C, Y and Branc h W-135) conjugate vaccine (MCV4P) Meningococcal B, OMV 2017-09-11 Completed [facility] ersity of 00:00:00 [facility] Meningococcal 2017-09-11 Completed University of Polysaccharide 00:00:00 [facility] judy (groups A, C, Y and Branc h W-135) conjugate vaccine (MCV4P) Meningococcal B, OMV 2017-09-11 Completed [facility] ersity of 00:00:00 [facility] Meningococcal Vaccine 2012-12-08 Completed Uni versity of 00:00:00 [facility] Tdap 2012-12-08 Completed University of 00:00:00 [facility] Tdap 2012-12-08 Completed University of 00:00:00 [facility] Meningococcal Vaccine 2012-12-08 Completed Uni versity of 00:00:00 [facility] Tdap 2012-12-08 Completed [facility] of 00:00:00 [facility] Meningococcal Vaccine 2012-12-08 Completed Uni versity of 00:00:00 [facility] Tdap 2012-12-08 Completed [facility] of 00:00:00 [facility] Meningococcal Vaccine 2012-12-08 Completed Uni versity of 00:00:00 [facility] Tdap 2012-12-08 Completed [facility] of 00:00:00 [facility] Meningococcal Vaccine 2012-12-08 Completed Uni versity of 00:00:00 [facility] Tdap 2012-12-08 Completed [facility] of 00:00:00 [facility] Meningococcal Vaccine 2012-12-08 Completed Uni versity of 00:00:00 [facility] Tdap 2012-12-08 Completed [facility] of 00:00:00 [facility] Meningococcal Vaccine 2012-12-08 Completed Uni versity of 00:00:00 [facility] Tdap 2012-12-08 Completed [facility] of 00:00:00 [facility] Meningococcal Vaccine 2012-12-08 Completed Uni versity of 00:00:00 [facility] Tdap 2012-12-08 Completed [facility] of 00:00:00 [facility] Meningococcal Vaccine 2012-12-08 Completed [facility] versity of 00:00:00 [facility] Meningococcal Vaccine 2012-12-08 Completed Uni versity of 00:00:00 [facility] Tdap 2012-12-08 Completed [facility] of 00:00:00 [facility] Meningococcal Vaccine 2012-12-08 Completed Uni versity of 00:00:00 [facility] Tdap 2012-12-08 Completed [facility] 00:00:00 [facility] Tdap 2012-12-08 Completed [facility] 00:00:00 [facility] Meningococcal Vaccine 2012-12-08 Completed Uni versity of 00:00:00 [facility] Tdap 2012-12-08 Completed [facility] 00:00:00 [facility] Meningococcal Vaccine 2012-12-08 Completed Uni versity of 00:00:00 [facility] Tdap 2012-12-08 Completed [facility] 00:00:00 [facility] Meningococcal Vaccine 2012-12-08 Completed Uni versity of 00:00:00 [facility] Tdap 2012-12-08 Completed [facility] 00:00:00 [facility] Meningococcal Vaccine 2012-12-08 Completed Uni versity of 00:00:00 [facility] Tdap 2012-12-08 Completed [facility] of 00:00:00 [facility] Meningococcal Vaccine 2012-12-08 Completed Uni versity of 00:00:00 [facility] TDAP 2012-12-08 Completed [facility] of 00:00:00 [facility] Meningococcal Vaccine 2012-12-08 Completed Uni versity of 00:00:00 [facility] TDAP 2012-12-08 Completed [facility] of 00:00:00 [facility] Meningococcal Vaccine 2012-12-08 Completed Uni versity of 00:00:00 [facility] Meningococcal Vaccine 2012-12-08 Completed Uni versity of 00:00:00 [facility] TDAP 2012-12-08 Completed [facility] of 00:00:00 [facility] Meningococcal Vaccine 2012-12-08 Completed Uni versity of 00:00:00 [facility] TDAP 2012-12-08 Completed [facility] of 00:00:00 [facility] Tdap 2012-12-08 Completed [facility] of 00:00:00 [facility] Meningococcal Vaccine 2012-12-08 Completed Uni versity of 00:00:00 [facility] TDAP 2012-12-08 Completed [facility] 00:00:00 [facility] Meningococcal Vaccine 2012-12-08 Completed Uni versity of 00:00:00 [facility] TDAP 2012-12-08 Completed [facility] of 00:00:00 [facility] Meningococcal Vaccine 2012-12-08 Completed Uni versity of 00:00:00 [facility] TDAP 2012-12-08 Completed [facility] of 00:00:00 [facility] Meningococcal Vaccine 2012-12-08 Completed Uni versity of 00:00:00 [facility] TDAP 2012-12-08 Completed [facility] of 00:00:00 [facility] Meningococcal Vaccine 2012-12-08 Completed Uni versity of 00:00:00 [facility] TDAP 2012-12-08 Completed [facility] of 00:00:00 [facility] Meningococcal Vaccine 2012-12-08 Completed Uni versity of 00:00:00 [facility] TDAP 2012-12-08 Completed [facility] of 00:00:00 [facility] Meningococcal Vaccine 2012-12-08 Completed Uni versity of 00:00:00 [facility] TDAP 2012-12-08 Completed [facility] 00:00:00 [facility] Meningococcal Vaccine 2012-12-08 Completed Uni versity of 00:00:00 [facility] TDAP 2012-12-08 Completed [facility] of 00:00:00 [facility] Meningococcal Vaccine 2012-12-08 Completed Uni versity of 00:00:00 [facility] TDAP 2012-12-08 Completed [facility] of 00:00:00 [facility] Meningococcal Vaccine 2012-12-08 Completed Uni versity of 00:00:00 [facility] Meningococcal Vaccine 2012-12-08 Completed Uni versity of 00:00:00 [facility] TDAP 2012-12-08 Completed [facility] 00:00:00 [facility] Tdap 2012-12-08 Completed [facility] of 00:00:00 [facility] Meningococcal Vaccine 2012-12-08 Completed Uni versity of 00:00:00 [facility] TDAP 2012-12-08 Completed [facility] of 00:00:00 [facility] Meningococcal Vaccine 2012-12-08 Completed Uni versity of 00:00:00 [facility] Meningococcal Vaccine 2012-12-08 Completed Uni versity of 00:00:00 [facility] TDAP 2012-12-08 Completed [facility] of 00:00:00 [facility] Meningococcal Vaccine 2012-12-08 Completed [facility] versity of 00:00:00 [facility] TDAP 2012-12-08 Completed [facility] of 00:00:00 [facility] Meningococcal Vaccine 2012-12-08 Completed Uni versity of 00:00:00 [facility] TDAP 2012-12-08 Completed [facility] of 00:00:00 [facility] Meningococcal Vaccine 2012-12-08 Completed Uni versity of 00:00:00 [facility] TDAP 2012-12-08 Completed [facility] of 00:00:00 [facility] Meningococcal Vaccine 2012-12-08 Completed Uni versity of 00:00:00 [facility] TDAP 2012-12-08 Completed [facility] 00:00:00 [facility] Meningococcal Vaccine 2012-12-08 Completed Uni versity of 00:00:00 [facility] TDAP 2012-12-08 Completed [facility] 00:00:00 [facility] Meningococcal Vaccine 2012-12-08 Completed Uni versity of 00:00:00 [facility] Tdap 2012-12-08 Completed [facility] of 00:00:00 [facility] Tdap 2012-12-08 Completed [facility] 00:00:00 [facility] Meningococcal Vaccine 2012-12-08 Completed Uni versity of 00:00:00 [facility] Tdap 2012-12-08 Completed [facility] of 00:00:00 [facility] Meningococcal Vaccine 2012-12-08 Completed Uni versity of 00:00:00 [facility] Tdap 2012-12-08 Completed [facility] of 00:00:00 [facility] Meningococcal Vaccine 2012-12-08 Completed Uni versity of 00:00:00 [facility] Tdap 2012-12-08 Completed [facility] 00:00:00 [facility] Meningococcal Vaccine 2012-12-08 Completed [facility] versity of 00:00:00 [facility] Tdap 2012-12-08 Completed [facility] of 00:00:00 [facility] Meningococcal Vaccine 2012-12-08 Completed Uni versity of 00:00:00 [facility] Tdap 2012-12-08 Completed [facility] of 00:00:00 [facility] Meningococcal Vaccine 2012-12-08 Completed Uni versity of 00:00:00 [facility] Tdap 2012-12-08 Completed [facility] of 00:00:00 [facility] Meningococcal Vaccine 2012-12-08 Completed [facility] versity of 00:00:00 [facility] Meningococcal Vaccine 2012-12-08 Completed Uni versity of 00:00:00 [facility] Tdap 2012-12-08 Completed [facility] of 00:00:00 [facility] Meningococcal Vaccine 2012-12-08 Completed Uni versity of 00:00:00 [facility] Tdap 2012-12-08 Completed [facility] 00:00:00 [facility] Tdap 2012-12-08 Completed [facility] of 00:00:00 [facility] Meningococcal Vaccine 2012-12-08 Completed Uni versity of 00:00:00 [facility] Tdap 2012-12-08 Completed [facility] of 00:00:00 [facility] Meningococcal Vaccine 2012-12-08 Completed Uni versity of 00:00:00 [facility] Tdap 2012-12-08 Completed [facility] of 00:00:00 [facility] Meningococcal Vaccine 2012-12-08 Completed Uni versity of 00:00:00 [facility] Tdap 2012-12-08 Completed [facility] of 00:00:00 [facility] Meningococcal Vaccine 2012-12-08 Completed Uni versity of 00:00:00 [facility] Tdap 2012-12-08 Completed [facility] of 00:00:00 [facility] Meningococcal Vaccine 2012-12-08 Completed Uni versity of 00:00:00 [facility] Tdap 2012-12-08 Completed [facility] of 00:00:00 [facility] Meningococcal Vaccine 2012-12-08 Completed [facility] versity of 00:00:00 [facility] Tdap 2012-12-08 Completed [facility] of 00:00:00 [facility] Meningococcal Vaccine 2012-12-08 Completed Uni versity of 00:00:00 [facility] Tdap 2012-12-08 Completed [facility] of 00:00:00 [facility] Meningococcal Vaccine 2012-12-08 Completed [facility] versity of 00:00:00 [facility] Varicella 2012-03-11 Completed University of (varivax)(chicken 00:00:00 [place] [facility] Varicella 2012-03-11 Completed [facility] (varivax)(chicken 00:00:00 [facility] Varicella 2012-03-11 Completed [facility] (varivax)(chicken 00:00:00 [facility] Varicella 2012-03-11 Completed [facility] (varivax)(chicken 00:00:00 [facility] Varicella 2012-03-11 Completed [facility] (varivax)(chicken 00:00:00 [facility] Varicella 2012-03-11 Completed [facility] (varivax)(chicken 00:00:00 [place] [facility] Varicella 2012-03-11 Completed [facility] (varivax)(chicken 00:00:00 [place] [facility] Varicella 2012-03-11 Completed [facility] (varivax)(chicken 00:00:00 [facility] Varicella 2012-03-11 Completed [facility] (varivax)(chicken 00:00:00 [facility] Varicella 2012-03-11 Completed [facility] (varivax)(chicken 00:00:00 [facility] Varicella 2012-03-11 Completed [facility] (varivax)(chicken 00:00:00 [facility] Varicella 2012-03-11 Completed [facility] (varivax)(chicken 00:00:00 [facility] Varicella 2012-03-11 Completed [facility] (varivax)(chicken 00:00:00 [facility] Varicella 2012-03-11 Completed [facility] (varivax)(chicken 00:00:00 [place] [facility] Varicella 2012-03-11 Completed [facility] (varivax)(chicken 00:00:00 [facility] Varicella 2012-03-11 Completed [facility] (varivax)(chicken 00:00:00 [place] [facility] Varicella 2012-03-11 Completed [facility] (varivax)(chicken 00:00:00 [place] [facility] Varicella 2012-03-11 Completed [facility] (varivax)(chicken 00:00:00 [place] [facility] Varicella 2012-03-11 Completed [facility] (varivax)(chicken 00:00:00 [place] [facility] Varicella 2012-03-11 Completed [facility] (varivax)(chicken 00:00:00 [place] [facility] Varicella 2012-03-11 Completed [facility] (varivax)(chicken 00:00:00 [facility] Varicella 2012-03-11 Completed [facility] (varivax)(chicken 00:00:00 [facility] Varicella 2012-03-11 Completed [facility] (varivax)(chicken 00:00:00 [place] [facility] Varicella 2012-03-11 Completed [facility] (varivax)(chicken 00:00:00 [place] [facility] Varicella 2012-03-11 Completed [facility] (varivax)(chicken 00:00:00 [place] [facility] Varicella 2012-03-11 Completed [facility] (varivax)(chicken 00:00:00 [place] [facility] Varicella 2012-03-11 Completed [facility] (varivax)(chicken 00:00:00 [place] [facility] Varicella 2012-03-11 Completed [facility] (varivax)(chicken 00:00:00 [facility] Varicella 2012-03-11 Completed [facility] (varivax)(chicken 00:00:00 [place] [facility] Varicella 2012-03-11 Completed [facility] (varivax)(chicken 00:00:00 [place] [facility] Varicella 2012-03-11 Completed [facility] (varivax)(chicken 00:00:00 [place] [facility] Varicella 2012-03-11 Completed [facility] (varivax)(chicken 00:00:00 [place] [facility] Varicella 2012-03-11 Completed [facility] (varivax)(chicken 00:00:00 [place] [facility] Varicella 2012-03-11 Completed [facility] (varivax)(chicken 00:00:00 [place] [facility] Varicella 2012-03-11 Completed [facility] (varivax)(chicken 00:00:00 [place] [facility] Varicella 2012-03-11 Completed [facility] (varivax)(chicken 00:00:00 [place] [facility] Varicella 2012-03-11 Completed [facility] (varivax)(chicken 00:00:00 [place] [facility] Varicella 2012-03-11 Completed [facility] (varivax)(chicken 00:00:00 [place] [facility] Varicella 2012-03-11 Completed [facility] (varivax)(chicken 00:00:00 [place] [facility] Varicella 2012-03-11 Completed [facility] (varivax)(chicken 00:00:00 [place] [facility] Varicella 2012-03-11 Completed [facility] (varivax)(chicken 00:00:00 [place] [facility] Varicella 2012-03-11 Completed [facility] (varivax)(chicken 00:00:00 [place] [facility] Varicella 2012-03-11 Completed [facility] (varivax)(chicken 00:00:00 [place] [facility] Varicella 2012-03-11 Completed [facility] (varivax)(chicken 00:00:00 [place] [facility] Varicella 2012-03-11 Completed [facility] (varivax)(chicken 00:00:00 [facility] Varicella 2012-03-11 Completed [facility] (varivax)(chicken 00:00:00 [place] [facility] Varicella 2012-03-11 Completed [facility] (varivax)(chicken 00:00:00 [place] [facility] Varicella 2012-03-11 Completed [facility] (varivax)(chicken 00:00:00 [place] [facility] Varicella 2012-03-11 Completed [facility] (varivax)(chicken 00:00:00 [place] [facility] Varicella 2012-03-11 Completed [facility] (varivax)(chicken 00:00:00 [place] [facility] Varicella 2012-03-11 Completed [facility] (varivax)(chicken 00:00:00 [place] [facility] Varicella 2012-03-11 Completed [facility] (varivax)(chicken 00:00:00 [place] [facility] Varicella 2012-03-11 Completed [facility] (varivax)(chicken 00:00:00 [place] [facility] Varicella 2012-03-11 Completed [facility] (varivax)(chicken 00:00:00 [place] [facility] Varicella 2012-03-11 Completed [facility] (varivax)(chicken 00:00:00 [place] [facility] Varicella 2012-03-11 Completed [facility] (varivax)(chicken 00:00:00 [place] [facility] Varicella 2012-03-11 Completed [facility] (varivax)(chicken 00:00:00 [place] [facility] Influenza Virus 2010-02-28 Completed Universit y of Vaccine Quad IM 6-35 00:00:[address] [facility] Influenza Virus 2010-02-28 Completed Universit y of Vaccine Quad IM 6-35 00:00:[address] [facility] Influenza Virus 2010-02-28 Completed Universit y of Vaccine Quad IM 6-35 00:00:[address] [facility] Influenza Virus 2010-02-28 Completed Universit y of Vaccine Quad IM 6-35 00:00:[address] [facility] Influenza Virus 2010-02-28 Completed Universit y of Vaccine Quad IM 6-35 00:00:[address] [facility] Influenza Virus 2010-02-28 Completed Universit y of Vaccine Quad IM 6-35 00:00:[address] [facility] Influenza Virus 2010-02-28 Completed Universit y of Vaccine Quad IM 6-35 00:00:[address] [facility] Influenza Virus 2010-02-28 Completed Universit y of Vaccine Quad IM 6-35 00:00:[address] [facility] Influenza Virus 2010-02-28 Completed Universit y of Vaccine Quad IM 6-35 00:00:[address] [facility] Influenza Virus 2010-02-28 Completed Universit y of Vaccine Quad IM 6-35 00:00:[address] [facility] Influenza Virus 2010-02-28 Completed [facility]it y of Vaccine Quad IM 6-35 00:00:[address] [facility] Influenza Virus 2010-02-28 Completed [facility]it y of Vaccine Quad IM 6-35 00:00:[address] [facility] Influenza Virus 2010-02-28 Completed Universit y of Vaccine Quad IM 6-35 00:00:[address] [facility] Influenza Virus 2010-02-28 Completed Universit y of Vaccine Quad IM 6-35 00:00:[address] [facility] Influenza Virus 2010-02-28 Completed Universit y of Vaccine Quad IM 6-35 00:00:[address] [facility] Influenza Virus 2010-02-28 Completed [facility]it y of Vaccine Quad IM 6-35 00:00:[address] [facility] Influenza Virus 2010-02-28 Completed Universit y of Vaccine Quad IM 6-35 00:00:[address] [facility] Influenza Virus 2010-02-28 Completed [facility]it y of Vaccine Quad IM 6-35 00:00:[address] [facility] Influenza Virus 2010-02-28 Completed [facility]it y of Vaccine Quad IM 6-35 00:00:[address] [facility] Influenza Virus 2010-02-28 Completed [facility]it y of Vaccine Quad IM 6-35 00:00:[address] [facility] Influenza Virus 2010-02-28 Completed [facility]it y of Vaccine Quad IM 6-35 00:00:[address] [facility] Influenza Virus 2010-02-28 Completed [facility]it y of Vaccine Quad IM 6-35 00:00:[address] [facility] Influenza Virus 2010-02-28 Completed [facility]it y of Vaccine Quad IM 6-35 00:00:[address] [facility] Influenza Virus 2010-02-28 Completed [facility]it y of Vaccine Quad IM 6-35 00:00:[address] [facility] Influenza Virus 2010-02-28 Completed [facility]it y of Vaccine Quad IM 6-35 00:00:[address] [facility] Influenza Virus 2010-02-28 Completed [facility]it y of Vaccine Quad IM 6-35 00:00:[address] [facility] Influenza Virus 2010-02-28 Completed [facility]it y of Vaccine Quad IM 6-35 00:00:[address] [facility] Influenza Virus 2010-02-28 Completed [facility]it y of Vaccine Quad IM 6-35 00:00:[address] [facility] Influenza Virus 2010-02-28 Completed [facility]it y of Vaccine Quad IM 6-35 00:00:[address] [facility] Influenza Virus 2010-02-28 Completed [facility]it y of Vaccine Quad IM 6-35 00:00:[address] [facility] Influenza Virus 2010-02-28 Completed Universit y of Vaccine Quad IM 6-35 00:00:[address] [facility] Influenza Virus 2010-02-28 Completed [facility]it y of Vaccine Quad IM 6-35 00:00:[address] [facility] Influenza Virus 2010-02-28 Completed [facility]it y of Vaccine Quad IM 6-35 00:00:[address] [facility] Influenza Virus 2010-02-28 Completed [facility] y of Vaccine Quad IM 6-35 00:00:[address] [facility] Influenza Virus 2010-02-28 Completed [facility]it y of Vaccine Quad IM 6-35 00:00:[address] [facility] Influenza Virus 2010-02-28 Completed [facility]it y of Vaccine Quad IM 6-35 00:00:[address] [facility] Influenza Virus 2010-02-28 Completed [facility] y of Vaccine Quad IM 6-35 00:00:[address] [facility] Influenza Virus 2010-02-28 Completed [facility]it y of Vaccine Quad IM 6-35 00:00:[address] [facility] Influenza Virus 2010-02-28 Completed [facility] y of Vaccine Quad IM 6-35 00:00:[address] [facility] Influenza Virus 2010-02-28 Completed [facility]it y of Vaccine Quad IM 6-35 00:00:[address] [facility] Influenza Virus 2010-02-28 Completed [facility] y of Vaccine Quad IM 6-35 00:00:[address] [facility] Influenza Virus 2010-02-28 Completed [facility] y of Vaccine Quad IM 6-35 00:00:[address] [facility] Influenza Virus 2010-02-28 Completed [facility]it y of Vaccine Quad IM 6-35 00:00:[address] [facility] Influenza Virus 2010-02-28 Completed [facility]it y of Vaccine Quad IM 6-35 00:00:[address] [facility] Influenza Virus 2010-02-28 Completed Universit y of Vaccine Quad IM 6-35 00:00:[address] [facility] Influenza Virus 2010-02-28 Completed [facility] y of Vaccine Quad IM 6-35 00:00:[address] [facility] Influenza Virus 2010-02-28 Completed [facility] y of Vaccine Quad IM 6-35 00:00:[address] [facility] Influenza Virus 2010-02-28 Completed [facility] y of Vaccine Quad IM 6-35 00:00:[address] [facility] Influenza Virus 2010-02-28 Completed [facility] y of Vaccine Quad IM 6-35 00:00:[address] [facility] Influenza Virus 2010-02-28 Completed [facility] y of Vaccine Quad IM 6-35 00:00:[address] [facility] Influenza Virus 2010-02-28 Completed [facility] y of Vaccine Quad IM 6-35 00:00:[address] [facility] Influenza Virus 2010-02-28 Completed [facility] y of Vaccine Quad IM 6-35 00:00:[address] [facility] Influenza Virus 2010-02-28 Completed [facility] y of Vaccine Quad IM 6-35 00:00:[address] [facility] Influenza Virus 2010-02-28 Completed [facility] y of Vaccine Quad IM 6-35 00:00:[address] [facility] Influenza Virus 2010-02-28 Completed [facility] y of Vaccine Quad IM 6-35 00:00:[address] [facility] Influenza Virus 2010-02-28 Completed [facility] y of Vaccine Quad IM 6-35 00:00:00 [facility] Influenza Virus 2010-02-28 Completed [facility]it y of Vaccine Quad IM [id number] 00:00:[address] [facility] MMR 2005-01-10 Completed [facility] of 00:00:00 [facility] Pneumococcal 13 2005-01-10 Completed [facility] of Conjugate, PCV13 00:00:00 [place] [facility] (Prevnar 13) Branch Polio (IPV/OPV) 2005-01-10 Completed [facility] 00:00:00 [facility] Polio (IPV/OPV) 2005-01-10 Completed [facility] of 00:00:00 [facility] DTAP 2005-01-10 Completed [facility] of 00:00:00 [facility] HIB 4 Dose Schedule 2005-01-10 Completed Unive rsity of 00:00:00 [facility] MMR 2005-01-10 Completed [facility] of 00:00:00 [facility] Pneumococcal 13 2005-01-10 Completed [facility] of Conjugate, PCV13 00:00:00 [facility] (Prevnar 13) Branch Polio (IPV/OPV) 2005-01-10 Completed [facility] 00:00:00 [facility] DTAP 2005-01-10 Completed [facility] of 00:00:00 [facility] HIB 4 Dose Schedule 2005-01-10 Completed Unive rsity of 00:00:00 [facility] MMR 2005-01-10 Completed [facility] of 00:00:00 [facility] Pneumococcal 13 2005-01-10 Completed [facility] of Conjugate, PCV13 00:00:00 [facility] (Prevnar 13) Branch Polio (IPV/OPV) 2005-01-10 Completed [facility] 00:00:00 [facility] DTAP 2005-01-10 Completed [facility] of 00:00:00 [facility] HIB 4 Dose Schedule 2005-01-10 Completed [facility]ive rsity of 00:00:00 [facility] MMR 2005-01-10 Completed [facility] of 00:00:00 [facility] Pneumococcal 13 2005-01-10 Completed [facility] of Conjugate, PCV13 00:00:00 [facility] (Prevnar 13) Branch Polio (IPV/OPV) 2005-01-10 Completed [facility] 00:00:00 [facility] DTAP 2005-01-10 Completed [facility] of 00:00:00 [facility] HIB 4 Dose Schedule 2005-01-10 Completed [facility]ive rsity of 00:00:00 [facility] MMR 2005-01-10 Completed [facility] of 00:00:00 [facility] Pneumococcal 13 2005-01-10 Completed [facility] of Conjugate, PCV13 00:00:00 [place] [facility] (Prevnar 13) Branch Polio (IPV/OPV) 2005-01-10 Completed [facility] 00:00:00 [facility] DTAP 2005-01-10 Completed [facility] of 00:00:00 [facility] HIB 4 Dose Schedule 2005-01-10 Completed [facility]ive rsity of 00:00:00 [facility] DTAP 2005-01-10 Completed [facility] of 00:00:00 [facility] MMR 2005-01-10 Completed [facility] of 00:00:00 [facility] Pneumococcal 13 2005-01-10 Completed [facility] of Conjugate, PCV13 00:00:00 [facility] (Prevnar 13) Branch Polio (IPV/OPV) 2005-01-10 Completed [facility] of 00:00:00 [facility] DTAP 2005-01-10 Completed [facility] of 00:00:00 [facility] DTAP 2005-01-10 Completed [facility] of 00:00:00 [facility] HIB 4 Dose Schedule 2005-01-10 Completed Unive rsity of 00:00:00 [facility] HIB 4 Dose Schedule 2005-01-10 Completed [facility]ive rsity of 00:00:00 [facility] MMR 2005-01-10 Completed [facility] of 00:00:00 [facility] Pneumococcal 13 2005-01-10 Completed [facility] of Conjugate, PCV13 00:00:00 [facility] (Prevnar 13) Branch Polio (IPV/OPV) 2005-01-10 Completed [facility] of 00:00:00 [facility] DTAP 2005-01-10 Completed [facility] of 00:00:00 [facility] HIB 4 Dose Schedule 2005-01-10 Completed [facility]ive rsity of 00:00:00 [facility] MMR 2005-01-10 Completed [facility] of 00:00:00 [facility] Pneumococcal 13 2005-01-10 Completed [facility] of Conjugate, PCV13 00:00:00 [place] [facility] (Prevnar 13) Branch Polio (IPV/OPV) 2005-01-10 Completed [facility] of 00:00:00 [facility] DTAP 2005-01-10 Completed [facility] of 00:00:00 [facility] HIB 4 Dose Schedule 2005-01-10 Completed [facility]ive rsity of 00:00:00 [facility] MMR 2005-01-10 Completed [facility] of 00:00:00 [facility] Pneumococcal 13 2005-01-10 Completed [facility] of Conjugate, PCV13 00:00:00 [facility] (Prevnar 13) Branch Polio (IPV/OPV) 2005-01-10 Completed [facility] of 00:00:00 [facility] MMR 2005-01-10 Completed [facility] of 00:00:00 [facility] Pneumococcal 13 2005-01-10 Completed [facility]it [facility] of Conjugate, PCV13 00:00:00 [facility] (Prevnar 13) Branch DTAP 2005-01-10 Completed [facility] of 00:00:00 [facility] HIB 4 Dose Schedule 2005-01-10 Completed Unive rsity of 00:00:00 [facility] MMR 2005-01-10 Completed [facility] of 00:00:00 [facility] Pneumococcal 13 2005-01-10 Completed [facility] of Conjugate, PCV13 00:00:00 [facility] (Prevnar 13) Branch Polio (IPV/OPV) 2005-01-10 Completed [facility] of 00:00:00 [facility] Polio (IPV/OPV) 2005-01-10 Completed [facility] of 00:00:00 [facility] DTAP 2005-01-10 Completed [facility] of 00:00:00 [facility] HIB 4 Dose Schedule 2005-01-10 Completed [facility]ive rsity of 00:00:00 [facility] MMR 2005-01-10 Completed [facility] of 00:00:00 [facility] Pneumococcal 13 2005-01-10 Completed [facility] of Conjugate, PCV13 00:00:00 [facility] (Prevnar 13) Branch Polio (IPV/OPV) 2005-01-10 Completed [facility] of 00:00:00 [facility] DTAP 2005-01-10 Completed [facility] of 00:00:00 [facility] HIB 4 Dose Schedule 2005-01-10 Completed Unive rsity of 00:00:00 [facility] MMR 2005-01-10 Completed [facility] of 00:00:00 [facility] Pneumococcal 13 2005-01-10 Completed [facility] of Conjugate, PCV13 00:00:00 [facility] (Prevnar 13) Branch Polio (IPV/OPV) 2005-01-10 Completed [facility] of 00:00:00 [facility] DTAP 2005-01-10 Completed [facility] of 00:00:00 [facility] HIB 4 Dose Schedule 2005-01-10 Completed Unive rsity of 00:00:00 [facility] MMR 2005-01-10 Completed [facility] of 00:00:00 [facility] Pneumococcal 13 2005-01-10 Completed [facility] of Conjugate, PCV13 00:00:00 [facility] (Prevnar 13) Branch Polio (IPV/OPV) 2005-01-10 Completed [facility] of 00:00:00 [facility] DTAP 2005-01-10 Completed [facility] of 00:00:00 [facility] DTAP 2005-01-10 Completed [facility] of 00:00:00 [facility] HIB 4 Dose Schedule 2005-01-10 Completed Unive rsity of 00:00:00 [facility] MMR 2005-01-10 Completed [facility] of 00:00:00 [facility] Pneumococcal 13 2005-01-10 Completed [facility]it [facility] of Conjugate, PCV13 00:00:00 [facility] (Prevnar 13) Branch Polio (IPV/OPV) 2005-01-10 Completed [facility] of 00:00:00 [facility] DTAP 2005-01-10 Completed [facility] of 00:00:00 [facility] HIB 4 Dose Schedule 2005-01-10 Completed Unive rsity of 00:00:00 [facility] HIB 4 Dose Schedule 2005-01-10 Completed Unive rsity of 00:00:00 [facility] MMR 2005-01-10 Completed [facility] of 00:00:00 [facility] Pneumococcal 13 2005-01-10 Completed [facility]it [facility] of Conjugate, PCV13 00:00:00 [facility] (Prevnar 13) Branch Polio (IPV/OPV) 2005-01-10 Completed [facility] of 00:00:00 [facility] DTAP 2005-01-10 Completed [facility] of 00:00:00 [facility] HIB 4 Dose Schedule 2005-01-10 Completed Unive rsity of 00:00:00 [facility] MMR 2005-01-10 Completed [facility] of 00:00:00 [facility] Pneumococcal 13 2005-01-10 Completed [facility]it [facility] of Conjugate, PCV13 00:00:00 [facility] (Prevnar 13) Branch Polio (IPV/OPV) 2005-01-10 Completed [facility] of 00:00:00 [facility] HIB 4 Dose Schedule 2005-01-10 Completed Unive rsity of 00:00:00 [facility] DTAP 2005-01-10 Completed University of 00:00:00 [facility] HIB 4 Dose Schedule 2005-01-10 Completed Unive rsity of 00:00:00 [facility] Branch MMR 2005-01-10 Completed University of 00:00:00 [facility] MMR 2005-01-10 Completed [facility] of 00:00:00 [facility] Pneumococcal 13 2005-01-10 Completed [facility]it [facility] of Conjugate, PCV13 00:00:00 [facility] dical (Prevnar 13) Branch Polio (IPV/OPV) 2005-01-10 Completed [facility] of 00:00:00 [facility] Pneumococcal 13 2005-01-10 Completed [facility]it [facility] of Conjugate, PCV13 00:00:00 [facility] (Prevnar 13) Branch DTAP 2005-01-10 Completed University of 00:00:00 [facility] HIB 4 Dose Schedule 2005-01-10 Completed Unive rsity of 00:00:00 [facility] MMR 2005-01-10 Completed [facility] of 00:00:00 [facility] Pneumococcal 13 2005-01-10 Completed [facility]it [facility] of Conjugate, PCV13 00:00:00 [facility] (Prevnar 13) Branch Polio (IPV/OPV) 2005-01-10 Completed [facility] of 00:00:00 [facility] Polio (IPV/OPV) 2005-01-10 Completed [facility] of 00:00:00 [facility] DTAP 2005-01-10 Completed [facility] of 00:00:00 [facility] HIB 4 Dose Schedule 2005-01-10 Completed Unive rsity of 00:00:00 [facility] MMR 2005-01-10 Completed [facility] of 00:00:00 [facility] Pneumococcal 13 2005-01-10 Completed [facility]it [facility] of Conjugate, PCV13 00:00:00 [facility]ical (Prevnar 13) Branch Polio (IPV/OPV) 2005-01-10 Completed [facility] of 00:00:00 [facility] DTAP 2005-01-10 Completed [facility] of 00:00:00 [facility] HIB 4 Dose Schedule 2005-01-10 Completed Unive rsity of 00:00:00 [facility] MMR 2005-01-10 Completed [facility] of 00:00:00 [facility] Pneumococcal 13 2005-01-10 Completed [facility]it [facility] of Conjugate, PCV13 00:00:00 [facility] d[facility] (Prevnar 13) Branch Polio (IPV/OPV) 2005-01-10 Completed [facility] of 00:00:00 [facility] DTAP 2005-01-10 Completed [facility] of 00:00:00 [facility] HIB 4 Dose Schedule 2005-01-10 Completed Unive rsity of 00:00:00 [facility] MMR 2005-01-10 Completed [facility] of 00:00:00 [facility] Pneumococcal 13 2005-01-10 Completed [facility]it [facility] of Conjugate, PCV13 00:00:00 [facility] (Prevnar 13) Branch Polio (IPV/OPV) 2005-01-10 Completed [facility] of 00:00:00 [facility] DTAP 2005-01-10 Completed [facility] of 00:00:00 [facility] HIB 4 Dose Schedule 2005-01-10 Completed Unive rsity of 00:00:00 [facility] MMR 2005-01-10 Completed [facility] of 00:00:00 [facility] Pneumococcal 13 2005-01-10 Completed [facility]it [facility] of Conjugate, PCV13 00:00:00 [facility] (Prevnar 13) Branch Polio (IPV/OPV) 2005-01-10 Completed [facility] of 00:00:00 [facility] DTAP 2005-01-10 Completed [facility] of 00:00:00 [facility] HIB 4 Dose Schedule 2005-01-10 Completed Unive rsity of 00:00:00 [facility] MMR 2005-01-10 Completed [facility] of 00:00:00 [facility] Pneumococcal 13 2005-01-10 Completed [facility] of Conjugate, PCV13 00:00:00 [facility] (Prevnar 13) Branch Polio (IPV/OPV) 2005-01-10 Completed [facility] of 00:00:00 [facility] DTAP 2005-01-10 Completed University of 00:00:00 [facility] HIB 4 Dose Schedule 2005-01-10 Completed Unive rsity of 00:00:00 [facility] MMR 2005-01-10 Completed University of 00:00:00 [facility] Pneumococcal 13 2005-01-10 Completed [facility] of Conjugate, PCV13 00:00:00 [facility] (Prevnar 13) Branch Polio (IPV/OPV) 2005-01-10 Completed [facility] of 00:00:00 [facility] DTAP 2005-01-10 Completed University of 00:00:00 [facility] DTAP 2005-01-10 Completed [facility] of 00:00:00 [facility] HIB 4 Dose Schedule 2005-01-10 Completed Unive rsity of 00:00:00 [facility] MMR 2005-01-10 Completed [facility] of 00:00:00 [facility] Pneumococcal 13 2005-01-10 Completed [facility] of Conjugate, PCV13 00:00:00 [facility] (Prevnar 13) Branch Polio (IPV/OPV) 2005-01-10 Completed [facility] of 00:00:00 [facility] DTAP 2005-01-10 Completed [facility] of 00:00:00 [facility] HIB 4 Dose Schedule 2005-01-10 Completed Unive rsity of 00:00:00 [facility] HIB 4 Dose Schedule 2005-01-10 Completed Unive rsity of 00:00:00 [facility] MMR 2005-01-10 Completed [facility] of 00:00:00 [facility] Pneumococcal 13 2005-01-10 Completed [facility] of Conjugate, PCV13 00:00:00 [facility] (Prevnar 13) Branch Polio (IPV/OPV) 2005-01-10 Completed [facility] 00:00:00 [facility] DTAP 2005-01-10 Completed University of 00:00:00 [facility] HIB 4 Dose Schedule 2005-01-10 Completed Unive rsity of 00:00:00 [facility] MMR 2005-01-10 Completed [facility] of 00:00:00 [facility] Pneumococcal 13 2005-01-10 Completed [facility] of Conjugate, PCV13 00:00:00 [facility] (Prevnar 13) Branch Polio (IPV/OPV) 2005-01-10 Completed [facility] of 00:00:00 [facility] MMR 2005-01-10 Completed [facility] of 00:00:00 [facility] Pneumococcal 13 2005-01-10 Completed [facility] of Conjugate, PCV13 00:00:00 [place] [facility] (Prevnar 13) Branch DTAP 2005-01-10 Completed [facility] of 00:00:00 [facility] HIB 4 Dose Schedule 2005-01-10 Completed Unive rsity of 00:00:00 [facility] MMR 2005-01-10 Completed [facility] of 00:00:00 [facility] Pneumococcal 13 2005-01-10 Completed [facility] of Conjugate, PCV13 00:00:00 [place] [facility] (Prevnar 13) Branch Polio (IPV/OPV) 2005-01-10 Completed [facility] of 00:00:00 [facility] Polio (IPV/OPV) 2005-01-10 Completed [facility] of 00:00:00 [facility] DTAP 2005-01-10 Completed [facility] of 00:00:00 [facility] HIB 4 Dose Schedule 2005-01-10 Completed Unive rsity of 00:00:00 [facility] MMR 2005-01-10 Completed [facility] of 00:00:00 [facility] Pneumococcal 13 2005-01-10 Completed [facility]it y of Conjugate, PCV13 00:00:00 [facility] dical (Prevnar 13) Branch Polio (IPV/OPV) 2005-01-10 Completed [facility] of 00:00:00 [facility] DTAP 2005-01-10 Completed [facility] of 00:00:00 [facility] HIB 4 Dose Schedule 2005-01-10 Completed Unive rsity of 00:00:00 [facility] MMR 2005-01-10 Completed [facility] of 00:00:00 [facility] Pneumococcal 13 2005-01-10 Completed [facility]it [facility] of Conjugate, PCV13 00:00:00 [facility] (Prevnar 13) Branch Polio (IPV/OPV) 2005-01-10 Completed [facility] of 00:00:00 [facility] DTAP 2005-01-10 Completed [facility] of 00:00:00 [facility] HIB 4 Dose Schedule 2005-01-10 Completed Unive rsity of 00:00:00 [facility] MMR 2005-01-10 Completed [facility] of 00:00:00 [facility] Pneumococcal 13 2005-01-10 Completed [facility]it [facility] of Conjugate, PCV13 00:00:00 [facility] (Prevnar 13) Branch Polio (IPV/OPV) 2005-01-10 Completed [facility] of 00:00:00 [facility] DTAP 2005-01-10 Completed University of 00:00:00 [facility] HIB 4 Dose Schedule 2005-01-10 Completed Unive rsity of 00:00:00 [facility] MMR 2005-01-10 Completed [facility] of 00:00:00 [facility] Pneumococcal 13 2005-01-10 Completed [facility]it [facility] of Conjugate, PCV13 00:00:00 [facility] (Prevnar 13) Branch Polio (IPV/OPV) 2005-01-10 Completed [facility] of 00:00:00 [facility] DTAP 2005-01-10 Completed [facility] of 00:00:00 [facility] HIB 4 Dose Schedule 2005-01-10 Completed Unive rsity of 00:00:00 [facility] MMR 2005-01-10 Completed [facility] of 00:00:00 [facility] Pneumococcal 13 2005-01-10 Completed [facility]it [facility] of Conjugate, PCV13 00:00:00 [facility] (Prevnar 13) Branch Polio (IPV/OPV) 2005-01-10 Completed [facility] of 00:00:00 [facility] DTAP 2005-01-10 Completed [facility] of 00:00:00 [facility] DTAP 2005-01-10 Completed [facility] of 00:00:00 [facility] HIB 4 Dose Schedule 2005-01-10 Completed Unive rsity of 00:00:00 [facility] MMR 2005-01-10 Completed [facility] of 00:00:00 [facility] Pneumococcal 13 2005-01-10 Completed [facility]it [facility] of Conjugate, PCV13 00:00:00 [facility] (Prevnar 13) Branch Polio (IPV/OPV) 2005-01-10 Completed [facility] 00:00:00 [facility] MMR 2005-01-10 Completed [facility] of 00:00:00 [facility] HIB 4 Dose Schedule 2005-01-10 Completed Unive rsity of 00:00:00 [facility] DTAP 2005-01-10 Completed [facility] of 00:00:00 [facility] HIB 4 Dose Schedule 2005-01-10 Completed Unive rsity of 00:00:00 [facility] MMR 2005-01-10 Completed [facility] of 00:00:00 [facility] Pneumococcal 13 2005-01-10 Completed [facility]it [facility] of Conjugate, PCV13 00:00:00 [facility] (Prevnar 13) Branch Polio (IPV/OPV) 2005-01-10 Completed [facility] 00:00:00 [facility] MMR 2005-01-10 Completed [facility] of 00:00:00 [facility] Pneumococcal 13 2005-01-10 Completed [facility]it y of Conjugate, PCV13 00:00:00 [facility] (Prevnar 13) Branch Pneumococcal 13 2005-01-10 Completed [facility] of Conjugate, PCV13 00:00:00 [facility] (Prevnar 13) Branch Polio (IPV/OPV) 2005-01-10 Completed [facility] 00:00:00 [facility] Polio (IPV/OPV) 2005-01-10 Completed [facility] of 00:00:00 [facility] DTAP 2005-01-10 Completed [facility] of 00:00:00 [facility] HIB 4 Dose Schedule 2005-01-10 Completed Unive rsity of 00:00:00 [facility] MMR 2005-01-10 Completed [facility] of 00:00:00 [facility] Pneumococcal 13 2005-01-10 Completed [facility]it y of Conjugate, PCV13 00:00:00 [facility] (Prevnar 13) Branch Polio (IPV/OPV) 2005-01-10 Completed [facility] 00:00:00 [facility] DTAP 2005-01-10 Completed [facility] of 00:00:00 [facility] HIB 4 Dose Schedule 2005-01-10 Completed Unive rsity of 00:00:00 [facility] MMR 2005-01-10 Completed [facility] of 00:00:00 [facility] Pneumococcal 13 2005-01-10 Completed [facility]it [facility] of Conjugate, PCV13 00:00:00 [facility] (Prevnar 13) Branch Polio (IPV/OPV) 2005-01-10 Completed [facility] 00:00:00 [facility] DTAP 2005-01-10 Completed [facility] of 00:00:00 [facility] HIB 4 Dose Schedule 2005-01-10 Completed Unive rsity of 00:00:00 [facility] MMR 2005-01-10 Completed [facility] of 00:00:00 [facility] Pneumococcal 13 2005-01-10 Completed [facility] of Conjugate, PCV13 00:00:00 [facility] (Prevnar 13) Branch Polio (IPV/OPV) 2005-01-10 Completed [facility] 00:00:00 [facility] DTAP 2005-01-10 Completed [facility] of 00:00:00 [facility] HIB 4 Dose Schedule 2005-01-10 Completed Unive rsity of 00:00:00 [facility] MMR 2005-01-10 Completed [facility] of 00:00:00 [facility] Pneumococcal 13 2005-01-10 Completed [facility] of Conjugate, PCV13 00:00:00 [facility] (Prevnar 13) Branch Polio (IPV/OPV) 2005-01-10 Completed [facility] 00:00:00 [facility] DTAP 2005-01-10 Completed [facility] of 00:00:00 [facility] DTAP 2005-01-10 Completed [facility] of 00:00:00 [facility] HIB 4 Dose Schedule 2005-01-10 Completed Unive rsity of 00:00:00 [facility] MMR 2005-01-10 Completed [facility] 00:00:00 [facility] Pneumococcal 13 2005-01-10 Completed [facility]it [facility] of Conjugate, PCV13 00:00:00 [facility] (Prevnar 13) Branch Polio (IPV/OPV) 2005-01-10 Completed [facility] 00:00:00 [facility] HIB 4 Dose Schedule 2005-01-10 Completed Unive rsity of 00:00:00 [facility] DTAP 2005-01-10 Completed [facility] 00:00:00 [facility] HIB 4 Dose Schedule 2005-01-10 Completed Unive rsity of 00:00:00 [facility] MMR 2005-01-10 Completed [facility] 00:00:00 [facility] Pneumococcal 13 2005-01-10 Completed [facility] of Conjugate, PCV13 00:00:00 [facility] (Prevnar 13) Branch Polio (IPV/OPV) 2005-01-10 Completed [facility] 00:00:00 [facility] DTAP 2005-01-10 Completed [facility] 00:00:00 [facility] HIB 4 Dose Schedule 2005-01-10 Completed Unive rsity of 00:00:00 [facility] MMR 2005-01-10 Completed University of 00:00:00 [facility] Pneumococcal 13 2005-01-10 Completed Universit y of Conjugate, PCV13 00:00:00 [facility] dical (Prevnar 13) Branch Polio (IPV/OPV) 2005-01-10 Completed Universit y of 00:00:00 [facility] MMR 2005-01-10 Completed University of 00:00:00 [facility] DTAP 2005-01-10 Completed University of 00:00:00 [facility] HIB 4 Dose Schedule 2005-01-10 Completed Unive rsity of 00:00:00 [facility] Pneumococcal 13 2005-01-10 Completed Universit y of Conjugate, PCV13 00:00:00 [place] [facility] (Prevnar 13) Branch MMR 2005-01-10 Completed [facility] of 00:00:00 [facility] Pneumococcal 13 2005-01-10 Completed Universit y of Conjugate, PCV13 00:00:00 [place] [facility] (Prevnar 13) Branch Polio (IPV/OPV) 2005-01-10 Completed [facility]it y of 00:00:00 [facility] Polio (IPV/OPV) 2005-01-10 Completed Universit y of 00:00:00 [facility] DTAP 2005-01-10 Completed [facility] of 00:00:00 [facility] HIB 4 Dose Schedule 2005-01-10 Completed Unive rsity of 00:00:00 [facility] MMR 2005-01-10 Completed University of 00:00:00 [facility] Pneumococcal 13 2005-01-10 Completed Universit y of Conjugate, PCV13 00:00:00 [facility] dical (Prevnar 13) Branch Polio (IPV/OPV) 2005-01-10 Completed Universit y of 00:00:00 [facility] DTAP 2005-01-10 Completed [facility] of 00:00:00 [facility] HIB 4 Dose Schedule 2005-01-10 Completed Unive rsity of 00:00:00 [facility] MMR 2005-01-10 Completed [facility] of 00:00:00 [facility] Pneumococcal 13 2005-01-10 Completed Universit y of Conjugate, PCV13 00:00:00 [place] [facility] (Prevnar 13) Branch Polio (IPV/OPV) 2005-01-10 Completed [facility]it y of 00:00:00 [facility] DTAP 2005-01-10 Completed University of 00:00:00 [facility] HIB 4 Dose Schedule 2005-01-10 Completed Unive rsity of 00:00:00 [facility] MMR 2005-01-10 Completed [facility] of 00:00:00 [facility] Pneumococcal 13 2005-01-10 Completed [facility]it y of Conjugate, PCV13 00:00:00 [place] [facility] (Prevnar 13) Branch Polio (IPV/OPV) 2005-01-10 Completed [facility]it y of 00:00:00 [facility] DTAP 2005-01-10 Completed [facility] of 00:00:00 [facility] HIB 4 Dose Schedule 2005-01-10 Completed Unive rsity of 00:00:00 [facility] MMR 2005-01-10 Completed University of 00:00:00 [facility] Pneumococcal 13 2005-01-10 Completed Universit y of Conjugate, PCV13 00:00:00 [facility] dical (Prevnar 13) Branch Polio (IPV/OPV) 2005-01-10 Completed Universit y of 00:00:00 [facility] DTAP 2005-01-10 Completed University of 00:00:00 [facility] HIB 4 Dose Schedule 2005-01-10 Completed Unive rsity of 00:00:00 [facility] MMR 2005-01-10 Completed [facility] of 00:00:00 [facility] Pneumococcal 13 2005-01-10 Completed Universit y of Conjugate, PCV13 00:00:00 [facility] dical (Prevnar 13) Branch Polio (IPV/OPV) 2005-01-10 Completed [facility]it y of 00:00:00 [facility] DTAP 2005-01-10 Completed [facility] of 00:00:00 [facility] HIB 4 Dose Schedule 2005-01-10 Completed Unive rsity of 00:00:00 [facility] MMR 2005-01-10 Completed [facility] of 00:00:00 [facility] Pneumococcal 13 2005-01-10 Completed Universit y of Conjugate, PCV13 00:00:00 [facility] dical (Prevnar 13) Branch Polio (IPV/OPV) 2005-01-10 Completed [facility]it y of 00:00:00 [facility] DTAP 2005-01-10 Completed [facility] of 00:00:00 [facility] DTAP 2005-01-10 Completed [facility] of 00:00:00 [facility] HIB 4 Dose Schedule 2005-01-10 Completed Unive rsity of 00:00:00 [facility] HIB 4 Dose Schedule 2005-01-10 Completed Unive rsity of 00:00:00 [facility] MMR 2005-01-10 Completed [facility] of 00:00:00 [facility] Pneumococcal 13 2005-01-10 Completed Universit y of Conjugate, PCV13 00:00:00 [facility] dical (Prevnar 13) Branch Polio (IPV/OPV) 2005-01-10 Completed Universit y of 00:00:00 [facility] Branch MMR 2005-01-10 Completed University of 00:00:00 [facility] Branch Pneumococcal 13 2005-01-10 Completed Universit y of Conjugate, PCV13 00:00:00 [facility] dical (Prevnar 13) Branch DTAP 2005-01-10 Completed [facility] of 00:00:00 [facility] HIB 4 Dose Schedule 2005-01-10 Completed Unive rsity of 00:00:00 [facility] HEPATITIS A 2005-01-08 Completed University of 00:00:00 [facility] HEPATITIS A 2005-01-08 Completed University of 00:00:00 [facility] Branch HEPATITIS A 2005-01-08 Completed University of 00:00:00 [facility] Branch HEPATITIS A 2005-01-08 Completed [facility] of 00:00:00 [facility] HEPATITIS A 2005-01-08 Completed [facility] of 00:00:00 [facility] Branch HEPATITIS A 2005-01-08 Completed [facility] of 00:00:00 [facility] Branch HEPATITIS A 2005-01-08 Completed [facility] of 00:00:00 [facility] HEPATITIS A 2005-01-08 Completed [facility] of 00:00:00 [facility] Branch HEPATITIS A 2005-01-08 Completed [facility] of 00:00:00 [facility] HEPATITIS A 2005-01-08 Completed [facility] of 00:00:00 [facility] HEPATITIS A 2005-01-08 Completed [facility] of 00:00:00 [facility] HEPATITIS A 2005-01-08 Completed [facility] of 00:00:00 [facility] Branch HEPATITIS A 2005-01-08 Completed [facility] of 00:00:00 [facility] Branch HEPATITIS A 2005-01-08 Completed [facility] of 00:00:00 [facility] HEPATITIS A 2005-01-08 Completed [facility] of 00:00:00 [facility] Branch HEPATITIS A 2005-01-08 Completed [facility] of 00:00:00 [facility] Branch HEPATITIS A 2005-01-08 Completed [facility] of 00:00:00 [facility] Branch HEPATITIS A 2005-01-08 Completed [facility] of 00:00:00 [facility] Branch HEPATITIS A 2005-01-08 Completed [facility] of 00:00:00 [facility] HEPATITIS A 2005-01-08 Completed [facility] of 00:00:00 [facility] HEPATITIS A 2005-01-08 Completed [facility] of 00:00:00 [facility] HEPATITIS A 2005-01-08 Completed [facility] 00:00:00 [facility] HEPATITIS A 2005-01-08 Completed [facility] 00:00:00 [facility] HEPATITIS A 2005-01-08 Completed [facility] 00:00:00 [facility] HEPATITIS A 2005-01-08 Completed [facility] 00:00:00 [facility] HEPATITIS A 2005-01-08 Completed [facility] 00:00:00 [facility] HEPATITIS A 2005-01-08 Completed [facility] 00:00:00 [facility] HEPATITIS A 2005-01-08 Completed [facility] 00:00:00 [facility] HEPATITIS A 2005-01-08 Completed [facility] 00:00:00 [facility] HEPATITIS A 2005-01-08 Completed [facility] 00:00:00 [facility] HEPATITIS A 2005-01-08 Completed [facility] 00:00:00 [facility] HEPATITIS A 2005-01-08 Completed [facility] 00:00:00 [facility] HEPATITIS A 2005-01-08 Completed [facility] 00:00:00 [facility] HEPATITIS A 2005-01-08 Completed [facility] 00:00:00 [facility] HEPATITIS A 2005-01-08 Completed [facility] 00:00:00 [facility] HEPATITIS A 2005-01-08 Completed [facility] 00:00:00 [facility] HEPATITIS A 2005-01-08 Completed [facility] of 00:00:00 [facility] HEPATITIS A 2005-01-08 Completed [facility] 00:00:00 [facility] HEPATITIS A 2005-01-08 Completed [facility] of 00:00:00 [facility] HEPATITIS A 2005-01-08 Completed [facility] 00:00:00 [facility] HEPATITIS A 2005-01-08 Completed [facility] of 00:00:00 [facility] HEPATITIS A 2005-01-08 Completed [facility] 00:00:00 [facility] HEPATITIS A 2005-01-08 Completed [facility] 00:00:00 [facility] HEPATITIS A 2005-01-08 Completed [facility] of 00:00:00 [facility] HEPATITIS A 2005-01-08 Completed [facility] 00:00:00 [facility] HEPATITIS A 2005-01-08 Completed University of 00:00:00 [facility] HEPATITIS A 2005-01-08 Completed [facility] of 00:00:00 [facility] HEPATITIS A 2005-01-08 Completed [facility] of 00:00:00 [facility] HEPATITIS A 2005-01-08 Completed [facility] 00:00:00 [facility] HEPATITIS A 2005-01-08 Completed [facility] 00:00:00 [facility] HEPATITIS A 2005-01-08 Completed [facility] 00:00:00 [facility] HEPATITIS A 2005-01-08 Completed [facility] 00:00:00 [facility] HEPATITIS A 2005-01-08 Completed [facility] 00:00:00 [facility] HEPATITIS A 2005-01-08 Completed [facility] 00:00:00 [facility] HEPATITIS A 2005-01-08 Completed [facility] 00:00:00 [facility] HEPATITIS A 2005-01-08 Completed [facility] of 00:00:00 [facility] HEPATITIS A 2005-01-08 Completed [facility] 00:00:00 [facility] DTAP 2003-08-16 Completed [facility] 00:00:00 [facility] DTAP 2003-08-16 Completed [facility] 00:00:00 [facility] DTAP 2003-08-16 Completed [facility] 00:00:00 [facility] DTAP 2003-08-16 Completed [facility] 00:00:00 [facility] DTAP 2003-08-16 Completed [facility] 00:00:00 [facility] DTAP 2003-08-16 Completed [facility] 00:00:00 [facility] DTAP 2003-08-16 Completed [facility] 00:00:00 [facility] DTAP 2003-08-16 Completed [facility] 00:00:00 [facility] DTAP 2003-08-16 Completed [facility] 00:00:00 [facility] DTAP 2003-08-16 Completed [facility] 00:00:00 [facility] DTAP 2003-08-16 Completed [facility] 00:00:00 [facility] DTAP 2003-08-16 Completed [facility] 00:00:00 [facility] DTAP 2003-08-16 Completed [facility] 00:00:00 [facility] DTAP 2003-08-16 Completed [facility] 00:00:00 [facility] DTAP 2003-08-16 Completed [facility] 00:00:00 [facility] DTAP 2003-08-16 Completed [facility] 00:00:00 [facility] DTAP 2003-08-16 Completed [facility] 00:00:00 [facility] DTAP 2003-08-16 Completed [facility] 00:00:00 [facility] DTAP 2003-08-16 Completed [facility] 00:00:00 [facility] DTAP 2003-08-16 Completed [facility] 00:00:00 [facility] DTAP 2003-08-16 Completed [facility] 00:00:00 [facility] DTAP 2003-08-16 Completed [facility] 00:00:00 [facility] DTAP 2003-08-16 Completed [facility] 00:00:00 [facility] DTAP 2003-08-16 Completed [facility] 00:00:00 [facility] DTAP 2003-08-16 Completed [facility] 00:00:00 [facility] DTAP 2003-08-16 Completed [facility] 00:00:00 [facility] DTAP 2003-08-16 Completed [facility] 00:00:00 [facility] DTAP 2003-08-16 Completed [facility] 00:00:00 [facility] DTAP 2003-08-16 Completed [facility] 00:00:00 [facility] DTAP 2003-08-16 Completed [facility] 00:00:00 [facility] DTAP 2003-08-16 Completed [facility] 00:00:00 [facility] DTAP 2003-08-16 Completed [facility] 00:00:00 [facility] DTAP 2003-08-16 Completed [facility] of 00:00:00 [facility] DTAP 2003-08-16 Completed [facility] 00:00:00 [facility] DTAP 2003-08-16 Completed [facility] of 00:00:00 [facility] DTAP 2003-08-16 Completed [facility] 00:00:00 [facility] DTAP 2003-08-16 Completed [facility] of 00:00:00 [facility] DTAP 2003-08-16 Completed [facility] 00:00:00 [facility] DTAP 2003-08-16 Completed [facility] of 00:00:00 [facility] DTAP 2003-08-16 Completed [facility] 00:00:00 [facility] DTAP 2003-08-16 Completed [facility] of 00:00:00 [facility] DTAP 2003-08-16 Completed [facility] of 00:00:00 [facility] DTAP 2003-08-16 Completed [facility] 00:00:00 [facility] DTAP 2003-08-16 Completed [facility] 00:00:00 [facility] DTAP 2003-08-16 Completed [facility] of 00:00:00 [facility] DTAP 2003-08-16 Completed [facility] of 00:00:00 [facility] DTAP 2003-08-16 Completed [facility] 00:00:00 [facility] DTAP 2003-08-16 Completed [facility] of 00:00:00 [facility] DTAP 2003-08-16 Completed [facility] 00:00:00 [facility] DTAP 2003-08-16 Completed [facility] 00:00:00 [facility] DTAP 2003-08-16 Completed [facility] 00:00:00 [facility] DTAP 2003-08-16 Completed [facility] 00:00:00 [facility] DTAP 2003-08-16 Completed [facility] of 00:00:00 [facility] DTAP 2003-08-16 Completed [facility] of 00:00:00 [facility] DTAP 2003-08-16 Completed [facility] of 00:00:00 [facility] DTAP 2003-08-16 Completed [facility] 00:00:00 [facility] DTAP 2003-08-16 Completed University of 00:00:00 [facility] HEPATITIS A 2003-01-10 Completed [facility] of 00:00:00 [facility] HEPATITIS A 2003-01-10 Completed [facility] 00:00:00 [facility] HEPATITIS A 2003-01-10 Completed [facility] of 00:00:00 [facility] HEPATITIS A 2003-01-10 Completed [facility] 00:00:00 [facility] HEPATITIS A 2003-01-10 Completed [facility] of 00:00:00 [facility] HEPATITIS A 2003-01-10 Completed [facility] of 00:00:00 [facility] HEPATITIS A 2003-01-10 Completed [facility] of 00:00:00 [facility] HEPATITIS A 2003-01-10 Completed [facility] 00:00:00 [facility] HEPATITIS A 2003-01-10 Completed [facility] of 00:00:00 [facility] HEPATITIS A 2003-01-10 Completed University of 00:00:00 [facility] HEPATITIS A 2003-01-10 Completed University of 00:00:00 [facility] HEPATITIS A 2003-01-10 Completed [facility] of 00:00:00 [facility] HEPATITIS A 2003-01-10 Completed [facility] of 00:00:00 [facility] HEPATITIS A 2003-01-10 Completed [facility] 00:00:00 [facility] HEPATITIS A 2003-01-10 Completed [facility] of 00:00:00 [facility] HEPATITIS A 2003-01-10 Completed [facility] of 00:00:00 [facility] HEPATITIS A 2003-01-10 Completed University of 00:00:00 [facility] HEPATITIS A 2003-01-10 Completed University of 00:00:00 [facility] HEPATITIS A 2003-01-10 Completed [facility] of 00:00:00 [facility] HEPATITIS A 2003-01-10 Completed [facility] of 00:00:00 [facility] HEPATITIS A 2003-01-10 Completed [facility] 00:00:00 [facility] HEPATITIS A 2003-01-10 Completed [facility] of 00:00:00 [facility] HEPATITIS A 2003-01-10 Completed [facility] of 00:00:00 [facility] HEPATITIS A 2003-01-10 Completed University of 00:00:00 [facility] HEPATITIS A 2003-01-10 Completed [facility] of 00:00:00 [facility] HEPATITIS A 2003-01-10 Completed [facility] of 00:00:00 [facility] HEPATITIS A 2003-01-10 Completed [facility] of 00:00:00 [facility] HEPATITIS A 2003-01-10 Completed [facility] of 00:00:00 [facility] HEPATITIS A 2003-01-10 Completed [facility] of 00:00:00 [facility] HEPATITIS A 2003-01-10 Completed [facility] of 00:00:00 [facility] HEPATITIS A 2003-01-10 Completed [facility] of 00:00:00 [facility] HEPATITIS A 2003-01-10 Completed [facility] of 00:00:00 [facility] HEPATITIS A 2003-01-10 Completed [facility] of 00:00:00 [facility] HEPATITIS A 2003-01-10 Completed [facility] of 00:00:00 [facility] HEPATITIS A 2003-01-10 Completed [facility] of 00:00:00 [facility] HEPATITIS A 2003-01-10 Completed [facility] of 00:00:00 [facility] HEPATITIS A 2003-01-10 Completed [facility] of 00:00:00 [facility] HEPATITIS A 2003-01-10 Completed [facility] of 00:00:00 [facility] HEPATITIS A 2003-01-10 Completed [facility] of 00:00:00 [facility] HEPATITIS A 2003-01-10 Completed [facility] of 00:00:00 [facility] HEPATITIS A 2003-01-10 Completed [facility] of 00:00:00 [facility] HEPATITIS A 2003-01-10 Completed [facility] 00:00:00 [facility] HEPATITIS A 2003-01-10 Completed [facility] 00:00:00 [facility] HEPATITIS A 2003-01-10 Completed [facility] of 00:00:00 [facility] HEPATITIS A 2003-01-10 Completed [facility] of 00:00:00 [facility] HEPATITIS A 2003-01-10 Completed [facility] 00:00:00 [facility] HEPATITIS A 2003-01-10 Completed [facility] of 00:00:00 [facility] HEPATITIS A 2003-01-10 Completed University of 00:00:00 [facility] HEPATITIS A 2003-01-10 Completed [facility] of 00:00:00 [facility] HEPATITIS A 2003-01-10 Completed [facility] of 00:00:00 [facility] HEPATITIS A 2003-01-10 Completed [facility] of 00:00:00 [facility] HEPATITIS A 2003-01-10 Completed [facility] of 00:00:00 [facility] HEPATITIS A 2003-01-10 Completed [facility] of 00:00:00 [facility] HEPATITIS A 2003-01-10 Completed [facility] of 00:00:00 [facility] HEPATITIS A 2003-01-10 Completed University of 00:00:00 [facility] HEPATITIS A 2003-01-10 Completed [facility] of 00:00:00 [facility] HEPATITIS A 2003-01-10 Completed [facility] of 00:00:00 [facility] DTAP 2002-05-17 Completed [facility] of 00:00:00 [facility] MMR 2002-05-17 Completed [facility] of 00:00:00 [facility] Polio (IPV/OPV) 2002-05-17 Completed Universit y of 00:00:00 [facility] Varicella 2002-05-17 Completed University of (varivax)(chicken 00:00:00 [facility] edical pox) Branch Polio (IPV/OPV) 2002-05-17 Completed Universit y of 00:00:00 [facility] DTAP 2002-05-17 Completed University of 00:00:00 [facility] HIB 4 Dose Schedule 2002-05-17 Completed Unive rsity of 00:00:00 [facility] MMR 2002-05-17 Completed University of 00:00:00 [facility] Polio (IPV/OPV) 2002-05-17 Completed Universit [facility] of 00:00:00 [facility] Varicella 2002-05-17 Completed [facility] of (varivax)(chicken 00:00:00 [place] [facility] pox) [facility] Varicella 2002-05-17 Completed [facility] of (varivax)(chicken 00:00:00 [place] [facility] pox) [facility] DTAP 2002-05-17 Completed [facility] of 00:00:00 [facility] HIB 4 Dose Schedule 2002-05-17 Completed Unive rsity of 00:00:00 [facility] MMR 2002-05-17 Completed [facility] of 00:00:00 [facility] Polio (IPV/OPV) 2002-05-17 Completed Universit [facility] of 00:00:00 [facility] Varicella 2002-05-17 Completed [facility] of (varivax)(chicken 00:00:00 [place] [facility] pox) [facility] DTAP 2002-05-17 Completed [facility] of 00:00:00 [facility] HIB 4 Dose Schedule 2002-05-17 Completed Unive rsity of 00:00:00 [facility] MMR 2002-05-17 Completed [facility] of 00:00:00 [facility] Polio (IPV/OPV) 2002-05-17 Completed [facility]it [facility] of 00:00:00 [facility] Varicella 2002-05-17 Completed [facility] of (varivax)(chicken 00:00:00 [place] [facility] pox) [facility] DTAP 2002-05-17 Completed [facility] 00:00:00 [facility] HIB 4 Dose Schedule 2002-05-17 Completed Unive rsity of 00:00:00 [facility] MMR 2002-05-17 Completed [facility] of 00:00:00 [facility] Polio (IPV/OPV) 2002-05-17 Completed Universit [facility] of 00:00:00 [facility] Varicella 2002-05-17 Completed [facility] of (varivax)(chicken 00:00:00 [place] [facility] pox) [facility] DTAP 2002-05-17 Completed [facility] of 00:00:00 [facility] DTAP 2002-05-17 Completed [facility] of 00:00:00 [facility] HIB 4 Dose Schedule 2002-05-17 Completed Unive rsity of 00:00:00 [facility] MMR 2002-05-17 Completed [facility] of 00:00:00 [facility] Polio (IPV/OPV) 2002-05-17 Completed [facility] 00:00:00 [facility] Varicella 2002-05-17 Completed [facility] of (varivax)(chicken 00:00:00 [place] [facility] pox) [facility] DTAP 2002-05-17 Completed [facility] of 00:00:00 [facility] HIB 4 Dose Schedule 2002-05-17 Completed Unive rsity of 00:00:00 [facility] HIB 4 Dose Schedule 2002-05-17 Completed Unive rsity of 00:00:00 [facility] MMR 2002-05-17 Completed [facility] of 00:00:00 [facility] Polio (IPV/OPV) 2002-05-17 Completed [facility]it [facility] of 00:00:00 [facility] Varicella 2002-05-17 Completed [facility] of (varivax)(chicken 00:00:00 [place] [facility] pox) [facility] DTAP 2002-05-17 Completed [facility] of 00:00:00 [facility] HIB 4 Dose Schedule 2002-05-17 Completed Unive rsity of 00:00:00 [facility] MMR 2002-05-17 Completed [facility] of 00:00:00 [facility] Polio (IPV/OPV) 2002-05-17 Completed [facility] 00:00:00 [facility] Varicella 2002-05-17 Completed [facility] of (varivax)(chicken 00:00:00 [place] [facility] pox) [facility] DTAP 2002-05-17 Completed [facility] of 00:00:00 [facility] HIB 4 Dose Schedule 2002-05-17 Completed Unive rsity of 00:00:00 [facility] MMR 2002-05-17 Completed [facility] of 00:00:00 [facility] MMR 2002-05-17 Completed [facility] of 00:00:00 [facility] Polio (IPV/OPV) 2002-05-17 Completed [facility] 00:00:00 [facility] Varicella 2002-05-17 Completed [facility] of (varivax)(chicken 00:00:00 [place] [facility] pox) [facility] DTAP 2002-05-17 Completed [facility] 00:00:00 [facility] HIB 4 Dose Schedule 2002-05-17 Completed Unive rsity of 00:00:00 [facility] MMR 2002-05-17 Completed [facility] of 00:00:00 [facility] Polio (IPV/OPV) 2002-05-17 Completed [facility] 00:00:00 [facility] Polio (IPV/OPV) 2002-05-17 Completed [facility] 00:00:00 [facility] Varicella 2002-05-17 Completed [facility] (varivax)(chicken 00:00:00 [place] [facility] pox) [facility] Varicella 2002-05-17 Completed [facility] ([facility]ivax[facility] 00:00:00 [place] [facility] DTAP 2002-05-17 Completed [facility] 00:00:00 [facility] HIB 4 Dose Schedule 2002-05-17 Completed [facility] 00:00:00 [facility] MMR 2002-05-17 Completed [facility] 00:00:00 [facility] Polio (IPV/OPV) 2002-05-17 Completed [facility] 00:00:00 [facility] Varicella 2002-05-17 Completed [facility] (varivax)(chicken 00:00:00 [place] [facility] DTAP 2002-05-17 Completed [facility] 00:00:00 [facility] HIB 4 Dose Schedule 2002-05-17 Completed [facility] 00:00:00 [facility] MMR 2002-05-17 Completed [facility] 00:00:00 [facility] Polio (IPV/OPV) 2002-05-17 Completed [facility] 00:00:00 [facility] Varicella 2002-05-17 Completed [facility] (varivax)(chicken 00:00:00 [facility] edical pox) Branch DTAP 2002-05-17 Completed [facility] 00:00:00 [facility] HIB 4 Dose Schedule 2002-05-17 Completed [facility] 00:00:00 [facility] MMR 2002-05-17 Completed [facility] 00:00:00 [facility] DTAP 2002-05-17 Completed [facility] 00:00:00 [facility] Polio (IPV/OPV) 2002-05-17 Completed [facility] 00:00:00 [facility] Varicella 2002-05-17 Completed [facility] (varivax)(chicken 00:00:00 [facility] edical pox) Branch DTAP 2002-05-17 Completed [facility] 00:00:00 [facility] HIB 4 Dose Schedule 2002-05-17 Completed [facility] 00:00:00 [facility] HIB 4 Dose Schedule 2002-05-17 Completed [facility] 00:00:00 [facility] MMR 2002-05-17 Completed [facility] 00:00:00 [facility] Polio (IPV/OPV) 2002-05-17 Completed [facility] 00:00:00 [facility] Varicella 2002-05-17 Completed [facility] (varivax)(chicken 00:00:00 [facility] edical pox) Branch HIB 4 Dose Schedule 2002-05-17 Completed [facility] 00:00:00 [facility] DTAP 2002-05-17 Completed [facility] 00:00:00 [facility] HIB 4 Dose Schedule 2002-05-17 Completed [facility] 00:00:00 [facility] MMR 2002-05-17 Completed [facility] 00:00:00 [facility] Polio (IPV/OPV) 2002-05-17 Completed [facility] 00:00:00 [facility] Varicella 2002-05-17 Completed [facility] (varivax)(chicken 00:00:00 [place] [facility] DTAP 2002-05-17 Completed [facility] 00:00:00 [facility] HIB 4 Dose Schedule 2002-05-17 Completed [facility] 00:00:00 [facility] MMR 2002-05-17 Completed [facility] 00:00:00 [facility] Polio (IPV/OPV) 2002-05-17 Completed [facility] 00:00:00 [facility] Varicella 2002-05-17 Completed [facility] (varivax)(chicken 00:00:00 [facility] edical pox) Branch DTAP 2002-05-17 Completed [facility] 00:00:00 [facility] MMR 2002-05-17 Completed [facility] 00:00:00 [facility] HIB 4 Dose Schedule 2002-05-17 Completed [facility] 00:00:00 [facility] MMR 2002-05-17 Completed [facility] 00:00:00 [facility] Polio (IPV/OPV) 2002-05-17 Completed [facility] 00:00:00 [facility] Varicella 2002-05-17 Completed [facility] (varivax)(chicken 00:00:00 [facility] edical pox) Branch DTAP 2002-05-17 Completed [facility] 00:00:00 [facility] HIB 4 Dose Schedule 2002-05-17 Completed [facility] 00:00:00 [facility] MMR 2002-05-17 Completed [facility] 00:00:00 [facility] Polio (IPV/OPV) 2002-05-17 Completed [facility] 00:00:00 [facility] Polio (IPV/OPV) 2002-05-17 Completed [facility] 00:00:00 [facility] Varicella 2002-05-17 Completed [facility] (varivax)(chicken 00:00:00 [facility] edical pox) Branch DTAP 2002-05-17 Completed [facility] 00:00:00 [facility] HIB 4 Dose Schedule 2002-05-17 Completed [facility] 00:00:00 [facility] MMR 2002-05-17 Completed [facility] 00:00:00 [facility] Varicella 2002-05-17 Completed [facility] (varivax)(chicken 00:00:00 [place] [facility] Polio (IPV/OPV) 2002-05-17 Completed [facility] 00:00:00 [facility] Varicella 2002-05-17 Completed [facility] (varivax)(chicken 00:00:00 [place] [facility] DTAP 2002-05-17 Completed [facility] 00:00:00 [facility] HIB 4 Dose Schedule 2002-05-17 Completed [facility] 00:00:00 [facility] MMR 2002-05-17 Completed [facility] 00:00:00 [facility] Polio (IPV/OPV) 2002-05-17 Completed [facility] 00:00:00 [facility] Varicella 2002-05-17 Completed [facility] (varivax)(chicken 00:00:00 [place] [facility] DTAP 2002-05-17 Completed [facility] 00:00:00 [facility] HIB 4 Dose Schedule 2002-05-17 Completed [facility] 00:00:00 [facility] MMR 2002-05-17 Completed [facility] 00:00:00 [facility] Polio (IPV/OPV) 2002-05-17 Completed [facility] 00:00:00 [facility] Varicella 2002-05-17 Completed [facility] (varivax)(chicken 00:00:00 [place] [facility] DTAP 2002-05-17 Completed [facility] 00:00:00 [facility] HIB 4 Dose Schedule 2002-05-17 Completed [facility] 00:00:00 [facility] MMR 2002-05-17 Completed [facility] 00:00:00 [facility] Polio (IPV/OPV) 2002-05-17 Completed [facility] 00:00:00 [facility] Varicella 2002-05-17 Completed [facility] (varivax)(chicken 00:00:00 [place] [facility] DTAP 2002-05-17 Completed [facility] 00:00:00 [facility] HIB 4 Dose Schedule 2002-05-17 Completed [facility] 00:00:00 [facility] MMR 2002-05-17 Completed [facility] 00:00:00 [facility] Polio (IPV/OPV) 2002-05-17 Completed [facility] 00:00:00 [facility] Varicella 2002-05-17 Completed [facility] (varivax)(chicken 00:00:00 [place] [facility] DTAP 2002-05-17 Completed [facility] 00:00:00 [facility] HIB 4 Dose Schedule 2002-05-17 Completed [facility] 00:00:00 [facility] MMR 2002-05-17 Completed [facility] 00:00:00 [facility] Polio (IPV/OPV) 2002-05-17 Completed [facility] 00:00:00 [facility] Varicella 2002-05-17 Completed [facility] (varivax)(chicken 00:00:00 [place] [facility] DTAP 2002-05-17 Completed [facility] 00:00:00 [facility] DTAP 2002-05-17 Completed [facility] 00:00:00 [facility] HIB 4 Dose Schedule 2002-05-17 Completed [facility] 00:00:00 [facility] MMR 2002-05-17 Completed [facility] 00:00:00 [facility] Polio (IPV/OPV) 2002-05-17 Completed [facility] 00:00:00 [facility] Varicella 2002-05-17 Completed [facility] (varivax)(chicken 00:00:00 [place] [facility] HIB 4 Dose Schedule 2002-05-17 Completed [facility] 00:00:00 [facility] DTAP 2002-05-17 Completed [facility] 00:00:00 [facility] HIB 4 Dose Schedule 2002-05-17 Completed [facility] 00:00:00 [facility] MMR 2002-05-17 Completed [facility] 00:00:00 [facility] Polio (IPV/OPV) 2002-05-17 Completed [facility] 00:00:00 [facility] Varicella 2002-05-17 Completed [facility] (varivax)(chicken 00[facility]00:00 [place] [facility] DTAP 2002-05-17 Completed [facility] 00:00:00 [facility] HIB 4 Dose Schedule 2002-05-17 Completed [facility] 00:00:00 [facility] MMR 2002-05-17 Completed [facility] 00:00:00 [facility] Polio (IPV/OPV) 2002-05-17 Completed [facility] 00:00:00 [facility] Varicella 2002-05-17 Completed [facility] (varivax)(chicken 00:00:00 [place] [facility] MMR 2002-05-17 Completed [facility] 00:00:00 [facility] DTAP 2002-05-17 Completed [facility] 00:00:00 [facility] HIB 4 Dose Schedule 2002-05-17 Completed [facility] 00:00:00 [facility] MMR 2002-05-17 Completed [facility] 00:00:00 [facility] Polio (IPV/OPV) 2002-05-17 Completed [facility] 00:00:00 [facility] Varicella 2002-05-17 Completed [facility] (varivax)(chicken 00:00:00 [place] [facility] Polio (IPV/OPV) 2002-05-17 Completed [facility] 00:00:00 [facility] DTAP 2002-05-17 Completed [facility] 00:00:00 [facility] Varicella 2002-05-17 Completed [facility] (varivax)(chicken 00:00:00 [place] [facility] HIB 4 Dose Schedule 2002-05-17 Completed [facility] 00:00:00 [facility] MMR 2002-05-17 Completed [facility] 00:00:00 [facility] Polio (IPV/OPV) 2002-05-17 Completed [facility] 00:00:00 [facility] Varicella 2002-05-17 Completed [facility] (varivax)(chicken 00:00:00 [place] [facility] DTAP 2002-05-17 Completed [facility] 00:00:00 [facility] HIB 4 Dose Schedule 2002-05-17 Completed [facility] 00:00:00 [facility] MMR 2002-05-17 Completed [facility] 00:00:00 [facility] Polio (IPV/OPV) 2002-05-17 Completed [facility] 00:00:00 [facility] Varicella 2002-05-17 Completed [facility] (varivax)(chicken 00:00:00 [place] [facility] DTAP 2002-05-17 Completed [facility] 00:00:00 [facility] HIB 4 Dose Schedule 2002-05-17 Completed [facility] 00:00:00 [facility] MMR 2002-05-17 Completed [facility] 00:00:00 [facility] Polio (IPV/OPV) 2002-05-17 Completed [facility] 00:00:00 [facility] Varicella 2002-05-17 Completed [facility] (varivax)(chicken 00:00:00 [place] [facility] DTAP 2002-05-17 Completed [facility] 00:00:00 [facility] HIB 4 Dose Schedule 2002-05-17 Completed [facility] 00:00:00 [facility] MMR 2002-05-17 Completed [facility] 00:00:00 [facility] Polio (IPV/OPV) 2002-05-17 Completed [facility] 00:00:00 [facility] MMR 2002-05-17 Completed [facility] 00:00:00 [facility] Varicella 2002-05-17 Completed [facility] (varivax)(chicken 00:00:00 [place] [facility] DTAP 2002-05-17 Completed [facility] 00:00:00 [facility] HIB 4 Dose Schedule 2002-05-17 Completed [facility] 00:00:00 [facility] MMR 2002-05-17 Completed [facility] 00:00:00 [facility] Polio (IPV/OPV) 2002-05-17 Completed [facility] 00:00:00 [facility] DTAP 2002-05-17 Completed [facility] 00:00:00 [facility] Varicella 2002-05-17 Completed [facility] (varivax)(chicken 00:00:00 [place] [facility] DTAP 2002-05-17 Completed [facility] 00:00:00 [facility] HIB 4 Dose Schedule 2002-05-17 Completed [facility] 00:00:00 [facility] MMR 2002-05-17 Completed [facility] 00:00:00 [facility] Polio (IPV/OPV) 2002-05-17 Completed [facility] 00:00:00 [facility] Varicella 2002-05-17 Completed [facility] (varivax)(chicken 00:00:00 [place] [facility] HIB 4 Dose Schedule 2002-05-17 Completed [facility] 00:00:00 [facility] DTAP 2002-05-17 Completed [facility] 00:00:00 [facility] HIB 4 Dose Schedule 2002-05-17 Completed [facility] 00:00:00 [facility] MMR 2002-05-17 Completed [facility] 00:00:00 [facility] Polio (IPV/OPV) 2002-05-17 Completed [facility] 00:00:00 [facility] Varicella 2002-05-17 Completed [facility] (varivax)(chicken 00:00:00 [place] [facility] MMR 2002-05-17 Completed [facility] 00:00:00 [facility] Polio (IPV/OPV) 2002-05-17 Completed [facility] 00:00:00 [facility] Varicella 2002-05-17 Completed [facility] (varivax)(chicken 00:00:00 [place] [facility] Polio (IPV/OPV) 2002-05-17 Completed [facility] 00:00:00 [facility] DTAP 2002-05-17 Completed [facility] 00:00:00 [facility] HIB 4 Dose Schedule 2002-05-17 Completed [facility] 00:00:00 [facility] MMR 2002-05-17 Completed [facility] 00:00:00 [facility] Varicella 2002-05-17 Completed [facility] (varivax)(chicken 00:00:00 [place] [facility] Polio (IPV/OPV) 2002-05-17 Completed [facility] 00:00:00 [facility] Varicella 2002-05-17 Completed [facility] (varivax)(chicken 00:00:00 [place] [facility] DTAP 2002-05-17 Completed [facility] 00:00:00 [facility] HIB 4 Dose Schedule 2002-05-17 Completed [facility] 00:00:00 [facility] MMR 2002-05-17 Completed [facility] 00:00:00 [facility] Polio (IPV/OPV) 2002-05-17 Completed [facility] 00:00:00 [facility] Varicella 2002-05-17 Completed [facility] (varivax)(chicken 00:00:00 [place] [facility] DTAP 2002-05-17 Completed [facility] 00:00:00 [facility] HIB 4 Dose Schedule 2002-05-17 Completed [facility] 00:00:00 [facility] MMR 2002-05-17 Completed [facility] 00:00:00 [facility] Polio (IPV/OPV) 2002-05-17 Completed [facility] 00:00:00 [facility] Varicella 2002-05-17 Completed [facility] (varivax)(chicken 00:00:00 [place] [facility] DTAP 2002-05-17 Completed [facility] 00:00:00 [facility] HIB 4 Dose Schedule 2002-05-17 Completed [facility] 00:00:00 [facility] MMR 2002-05-17 Completed [facility] 00:00:00 [facility] Polio (IPV/OPV) 2002-05-17 Completed [facility] 00:00:00 [facility] Varicella 2002-05-17 Completed [facility] (varivax)(chicken 00:00:00 [place] [facility] DTAP 2002-05-17 Completed [facility] 00:00:00 [facility] DTAP 2002-05-17 Completed [facility] 00:00:00 [facility] HIB 4 Dose Schedule 2002-05-17 Completed [facility] 00:00:00 [facility] MMR 2002-05-17 Completed [facility] 00:00:00 [facility] Polio (IPV/OPV) 2002-05-17 Completed [facility] 00:00:00 [facility] Varicella 2002-05-17 Completed [facility] (varivax)(chicken 00:00:00 [place] [facility] HIB 4 Dose Schedule 2002-05-17 Completed [facility] 00:00:00 [facility] DTAP 2002-05-17 Completed [facility] 00:00:00 [facility] HIB 4 Dose Schedule 2002-05-17 Completed [facility] 00:00:00 [facility] MMR 2002-05-17 Completed [facility] 00:00:00 [facility] Polio (IPV/OPV) 2002-05-17 Completed [facility] 00:00:00 [facility] Varicella 2002-05-17 Completed [facility] (varivax)(chicken 00:00:00 [place] [facility] DTAP 2002-05-17 Completed [facility] 00:00:00 [facility] HIB 4 Dose Schedule 2002-05-17 Completed [facility] 00:00:00 [facility] MMR 2002-05-17 Completed [facility] 00:00:00 [facility] Polio (IPV/OPV) 2002-05-17 Completed [facility] 00:00:00 [facility] Varicella 2002-05-17 Completed [facility] (varivax)(chicken 00:00:00 [place] [facility] MMR 2002-05-17 Completed [facility] 00:00:00 [facility] DTAP 2002-05-17 Completed [facility] 00:00:00 [facility] HIB 4 Dose Schedule 2002-05-17 Completed [facility] 00:00:00 [facility] MMR 2002-05-17 Completed [facility] 00:00:00 [facility] Polio (IPV/OPV) 2002-05-17 Completed [facility] 00:00:00 [facility] Varicella 2002-05-17 Completed [facility] (varivax)(chicken 00:00:00 [place] [facility] Polio (IPV/OPV) 2002-05-17 Completed [facility] 00:00:00 [facility] DTAP 2002-05-17 Completed [facility] 00:00:00 [facility] HIB 4 Dose Schedule 2002-05-17 Completed [facility] 00:00:00 [facility] MMR 2002-05-17 Completed [facility] 00:00:00 [facility] Polio (IPV/OPV) 2002-05-17 Completed [facility] 00:00:00 [facility] Varicella 2002-05-17 Completed [facility] (varivax)(chicken 00:00:00 [place] [facility] Varicella 2002-05-17 Completed [facility] (varivax)(chicken 00:00:00 [place] [facility] DTAP 2002-05-17 Completed [facility] 00:00:00 [facility] HIB 4 Dose Schedule 2002-05-17 Completed [facility] 00:00:00 [facility] MMR 2002-05-17 Completed [facility] 00:00:00 [facility] Polio (IPV/OPV) 2002-05-17 Completed [facility] 00:00:00 [facility] Varicella 2002-05-17 Completed [facility] (varivax)(chicken 00:00:00 [place] [facility] DTAP 2002-05-17 Completed [facility] 00:00:00 [facility] HIB 4 Dose Schedule 2002-05-17 Completed [facility] 00:00:00 [facility] MMR 2002-05-17 Completed [facility] 00:00:00 [facility] Polio (IPV/OPV) 2002-05-17 Completed [facility] 00:00:00 [facility] Varicella 2002-05-17 Completed [facility] (varivax)(chicken 00:00:00 [place] [facility] DTAP 2002-05-17 Completed [facility] 00:00:00 [facility] HIB 4 Dose Schedule 2002-05-17 Completed [facility] 00:00:00 [facility] MMR 2002-05-17 Completed [facility] 00:00:00 [facility] Polio (IPV/OPV) 2002-05-17 Completed [facility] 00:00:00 [facility] Varicella 2002-05-17 Completed [facility] (varivax)(chicken 00:00:00 [place] [facility] DTAP 2002-05-17 Completed [facility] 00:00:00 [facility] HIB 4 Dose Schedule 2002-05-17 Completed [facility] 00:00:00 [facility] MMR 2002-05-17 Completed [facility] 00:00:00 [facility] Polio (IPV/OPV) 2002-05-17 Completed [facility] 00:00:00 [facility] Varicella 2002-05-17 Completed [facility] (varivax)(chicken 00:00:00 [place] [facility] DTAP 2002-05-17 Completed [facility] 00:00:00 [facility] HIB 4 Dose Schedule 2002-05-17 Completed [facility] 00:00:00 [facility] MMR 2002-05-17 Completed [facility] 00:00:00 [facility] Polio (IPV/OPV) 2002-05-17 Completed [facility] 00:00:00 [facility] DTAP 2002-05-17 Completed [facility] 00:00:00 [facility] Varicella 2002-05-17 Completed [facility] (varivax)(chicken 00:00:00 [place] [facility] HIB 4 Dose Schedule 2002-05-17 Completed [facility] 00:00:00 [facility] DTAP 2002-05-17 Completed [facility] 00:00:00 [facility] HIB 4 Dose Schedule 2002-05-17 Completed [facility] 00:00:00 [facility] MMR 2002-05-17 Completed [facility] 00:00:00 [facility] Polio (IPV/OPV) 2002-05-17 Completed [facility] 00:00:00 [facility] Varicella 2002-05-17 Completed [facility] (varivax)(chicken 00:00:00 [place] [facility] MMR 2002-05-17 Completed [facility] 00:00:00 [facility] DTAP 2002-05-17 Completed [facility] 00:00:00 [facility] HIB 4 Dose Schedule 2002-05-17 Completed [facility] 00:00:00 [facility] Hep B, Adol or Pedi 2001-04-22 Completed [facility]ive [facility] of Dosage 00:00:00 [facility] Polio (IPV/OPV) 2001-04-22 Completed [facility] 00:00:00 [facility] Polio (IPV/OPV) 2001-04-22 Completed [facility] 00:00:00 [facility] DTAP 2001-04-22 Completed [facility] 00:00:00 [facility] HIB 4 Dose Schedule 2001-04-22 Completed [facility] 00:00:00 [facility] Hep B, Adol or Pedi 2001-04-22 Completed [facility] Dosage 00:00:00 [facility] Polio (IPV/OPV) 2001-04-22 Completed [facility] 00:00:00 [facility] DTAP 2001-04-22 Completed [facility] 00:00:00 [facility] HIB 4 Dose Schedule 2001-04-22 Completed [facility] 00:00:00 [facility] Hep B, Adol or Pedi 2001-04-22 Completed [facility] Dosage 00:00:00 [facility] Polio (IPV/OPV) 2001-04-22 Completed [facility] 00:00:00 [facility] DTAP 2001-04-22 Completed [facility] 00:00:00 [facility] HIB 4 Dose Schedule 2001-04-22 Completed [facility] 00:00:00 [facility] Hep B, Adol or Pedi 2001-04-22 Completed [facility] Dosage 00:00:00 [facility] Polio (IPV/OPV) 2001-04-22 Completed [facility] 00:00:00 [facility] DTAP 2001-04-22 Completed [facility] 00:00:00 [facility] HIB 4 Dose Schedule 2001-04-22 Completed [facility] 00:00:00 [facility] Hep B, Adol or Pedi 2001-04-22 Completed [facility] Dosage 00:00:00 [facility] Polio (IPV/OPV) 2001-04-22 Completed [facility] 00:00:00 [facility] DTAP 2001-04-22 Completed [facility] 00:00:00 [facility] DTAP 2001-04-22 Completed [facility] 00:00:00 [facility] HIB 4 Dose Schedule 2001-04-22 Completed [facility] 00:00:00 [facility] Hep B, Adol or Pedi 2001-04-22 Completed [facility] of Dosage 00:00:00 [facility] Polio (IPV/OPV) 2001-04-22 Completed [facility] 00:00:00 [facility] HIB 4 Dose Schedule 2001-04-22 Completed [facility] 00:00:00 [facility] DTAP 2001-04-22 Completed [facility] 00:00:00 [facility] HIB 4 Dose Schedule 2001-04-22 Completed [facility] 00:00:00 [facility] Hep B, Adol or Pedi 2001-04-22 Completed [facility] Dosage 00:00:00 [facility] Polio (IPV/OPV) 2001-04-22 Completed [facility]00 [facility] DTAP 2001-04-22 Completed [facility] 00:00:00 [facility] HIB 4 Dose Schedule 2001-04-22 Completed [facility] 00:00:00 [facility] Hep B, Adol or Pedi 2001-04-22 Completed [facility] Dosage 00:00:00 [facility] Polio (IPV/OPV) 2001-04-22 Completed [facility] 00:00:00 [facility] Hep B, Adol or Pedi 2001-04-22 Completed [facility] Dosage 00:00:00 [facility] DTAP 2001-04-22 Completed [facility] 00:00:00 [facility] HIB 4 Dose Schedule 2001-04-22 Completed [facility] 00:00:00 [facility] Hep B, Adol or Pedi 2001-04-22 Completed [facility] Dosage 00:00:00 [facility] Polio (IPV/OPV) 2001-04-22 Completed [facility] 00:00:00 [facility] DTAP 2001-04-22 Completed [facility] 00:00:00 [facility] HIB 4 Dose Schedule 2001-04-22 Completed [facility] 00:00:00 [facility] Polio (IPV/OPV) 2001-04-22 Completed [facility] 00:00:00 [facility] Hep B, Adol or Pedi 2001-04-22 Completed [facility] Dosage 00:00:00 [facility] Polio (IPV/OPV) 2001-04-22 Completed [facility] 00:00:00 [facility] DTAP 2001-04-22 Completed [facility] 00:00:00 [facility] HIB 4 Dose Schedule 2001-04-22 Completed [facility] 00:00:00 [facility] Hep B, Adol or Pedi 2001-04-22 Completed [facility] Dosage 00:00:00 [facility] Polio (IPV/OPV) 2001-04-22 Completed [facility] 00:00:00 [facility] HIB 4 Dose Schedule 2001-04-22 Completed [facility] 00:00:00 [facility] DTAP 2001-04-22 Completed [facility] 00:00:00 [facility] HIB 4 Dose Schedule 2001-04-22 Completed [facility] 00:00:00 [facility] Hep B, Adol or Pedi 2001-04-22 Completed [facility] Dosage 00:00:00 [facility] Polio (IPV/OPV) 2001-04-22 Completed [facility] 00:00:00 [facility] DTAP 2001-04-22 Completed [facility] 00:00:00 [facility] HIB 4 Dose Schedule 2001-04-22 Completed [facility] 00:00:00 [facility] DTAP 2001-04-22 Completed [facility] 00:00:00 [facility] Hep B, Adol or Pedi 2001-04-22 Completed [facility] Dosage 00:00:00 [facility] Polio (IPV/OPV) 2001-04-22 Completed [facility] 00:00:00 [facility] DTAP 2001-04-22 Completed [facility] 00:00:00 [facility] HIB 4 Dose Schedule 2001-04-22 Completed [facility] 00:00:00 [facility] Hep B, Adol or Pedi 2001-04-22 Completed [facility] Dosage 00:00:00 [facility] Polio (IPV/OPV) 2001-04-22 Completed [facility] 00:00:00 [facility] HIB 4 Dose Schedule 2001-04-22 Completed [facility] 00:00:00 [facility] DTAP 2001-04-22 Completed [facility] 00:00:00 [facility] HIB 4 Dose Schedule 2001-04-22 Completed [facility] 00:00:00 [facility] Hep B, Adol or Pedi 2001-04-22 Completed [facility] Dosage 00:00:00 [facility] Polio (IPV/OPV) 2001-04-22 Completed [facility] 00:00:00 [facility] DTAP 2001-04-22 Completed [facility] 00:00:00 [facility] HIB 4 Dose Schedule 2001-04-22 Completed [facility] 00:00:00 [facility] Hep B, Adol or Pedi 2001-04-22 Completed [facility] Dosage 00:00:00 [facility] Polio (IPV/OPV) 2001-04-22 Completed [facility] 00:00:00 [facility] Hep B, Adol or Pedi 2001-04-22 Completed [facility] Dosage 00:00:00 [facility] DTAP 2001-04-22 Completed [facility] 00:00:00 [facility] HIB 4 Dose Schedule 2001-04-22 Completed [facility] 00:00:00 [facility] Hep B, Adol or Pedi 2001-04-22 Completed [facility] Dosage 00:00:00 [facility] Polio (IPV/OPV) 2001-04-22 Completed [facility] 00:00:00 [facility] DTAP 2001-04-22 Completed [facility] 00:00:00 [facility] HIB 4 Dose Schedule 2001-04-22 Completed [facility] 00:00:00 [facility] Polio (IPV/OPV) 2001-04-22 Completed [facility] 00:00:00 [facility] Hep B, Adol or Pedi 2001-04-22 Completed [facility] Dosage 00:00:00 [facility] Polio (IPV/OPV) 2001-04-22 Completed [facility] 00:00:00 [facility] DTAP 2001-04-22 Completed [facility] 00:00:00 [facility] HIB 4 Dose Schedule 2001-04-22 Completed [facility] 00:00:00 [facility] Hep B, Adol or Pedi 2001-04-22 Completed [facility] Dosage 00:00:00 [facility] Polio (IPV/OPV) 2001-04-22 Completed [facility] 00:00:00 [facility] DTAP 2001-04-22 Completed [facility] 00:00:00 [facility] HIB 4 Dose Schedule 2001-04-22 Completed [facility] 00:00:00 [facility] Hep B, Adol or Pedi 2001-04-22 Completed [facility] Dosage 00:00:00 [facility] Polio (IPV/OPV) 2001-04-22 Completed [facility] 00:00:00 [facility] DTAP 2001-04-22 Completed [facility] 00:00:00 [facility] HIB 4 Dose Schedule 2001-04-22 Completed [facility] 00:00:00 [facility] Hep B, Adol or Pedi 2001-04-22 Completed [facility] Dosage 00:00:00 [facility] Polio (IPV/OPV) 2001-04-22 Completed [facility] 00:00:00 [facility] DTAP 2001-04-22 Completed [facility] 00:00:00 [facility] HIB 4 Dose Schedule 2001-04-22 Completed [facility] 00:00:00 [facility] Hep B, Adol or Pedi 2001-04-22 Completed [facility] Dosage 00:00:00 [facility] Polio (IPV/OPV) 2001-04-22 Completed [facility] 00:00:00 [facility] DTAP 2001-04-22 Completed [facility] 00:00:00 [facility] HIB 4 Dose Schedule 2001-04-22 Completed [facility] 00:00:00 [facility] Hep B, Adol or Pedi 2001-04-22 Completed [facility] Dosage 00:00:00 [facility] Polio (IPV/OPV) 2001-04-22 Completed [facility] 00:00:00 [facility] DTAP 2001-04-22 Completed [facility] 00:00:00 [facility] HIB 4 Dose Schedule 2001-04-22 Completed [facility] 00:00:00 [facility] Hep B, Adol or Pedi 2001-04-22 Completed [facility] Dosage 00:00:00 [facility] Polio (IPV/OPV) 2001-04-22 Completed [facility] 00:00:00 [facility] DTAP 2001-04-22 Completed [facility] 00:00:00 [facility] DTAP 2001-04-22 Completed [facility] 00:00:00 [facility] HIB 4 Dose Schedule 2001-04-22 Completed [facility] 00:00:00 [facility] Hep B, Adol or Pedi 2001-04-22 Completed [facility] Dosage 00:00:00 [facility] Polio (IPV/OPV) 2001-04-22 Completed [facility] 00:00:00 [facility] HIB 4 Dose Schedule 2001-04-22 Completed [facility] 00:00:00 [facility] DTAP 2001-04-22 Completed [facility] 00:00:00 [facility] HIB 4 Dose Schedule 2001-04-22 Completed [facility] 00:00:00 [facility] Hep B, Adol or Pedi 2001-04-22 Completed [facility] Dosage 00:00:00 [facility] Polio (IPV/OPV) 2001-04-22 Completed [facility] 00:00:00 [facility] DTAP 2001-04-22 Completed [facility] 00:00:00 [facility] HIB 4 Dose Schedule 2001-04-22 Completed [facility] 00:00:00 [facility] Hep B, Adol or Pedi 2001-04-22 Completed [facility] Dosage 00:00:00 [facility] Hep B, Adol or Pedi 2001-04-22 Completed [facility] Dosage 00:00:00 [facility] Polio (IPV/OPV) 2001-04-22 Completed [facility] 00:00:00 [facility] DTAP 2001-04-22 Completed [facility] 00:00:00 [facility] HIB 4 Dose Schedule 2001-04-22 Completed [facility] 00:00:00 [facility] Hep B, Adol or Pedi 2001-04-22 Completed [facility] Dosage 00:00:00 [facility] Hep B, Adol or Pedi 2001-04-22 Completed [facility] Dosage 00:00:00 [facility] Polio (IPV/OPV) 2001-04-22 Completed [facility] 00:00:00 [facility] Polio (IPV/OPV) 2001-04-22 Completed [facility] 00:00:00 [facility] DTAP 2001-04-22 Completed [facility] 00:00:00 [facility] HIB 4 Dose Schedule 2001-04-22 Completed [facility] 00:00:00 [facility] Hep B, Adol or Pedi 2001-04-22 Completed [facility] Dosage 00:00:00 [facility] Polio (IPV/OPV) 2001-04-22 Completed [facility] 00:00:00 [facility] DTAP 2001-04-22 Completed [facility] 00:00:00 [facility] HIB 4 Dose Schedule 2001-04-22 Completed [facility] 00:00:00 [facility] Hep B, Adol or Pedi 2001-04-22 Completed [facility] Dosage 00:00:00 [facility] Polio (IPV/OPV) 2001-04-22 Completed [facility] 00:00:00 [facility] DTAP 2001-04-22 Completed [facility] 00:00:00 [facility] HIB 4 Dose Schedule 2001-04-22 Completed [facility] 00:00:00 [facility] Hep B, Adol or Pedi 2001-04-22 Completed [facility] Dosage 00:00:00 [facility] Polio (IPV/OPV) 2001-04-22 Completed [facility] 00:00:00 [facility] DTAP 2001-04-22 Completed [facility] 00:00:00 [facility] HIB 4 Dose Schedule 2001-04-22 Completed [facility] 00:00:00 [facility] Hep B, Adol or Pedi 2001-04-22 Completed [facility] Dosage 00:00:00 [facility] Polio (IPV/OPV) 2001-04-22 Completed [facility] 00:00:00 [facility] DTAP 2001-04-22 Completed [facility] 00:00:00 [facility] HIB 4 Dose Schedule 2001-04-22 Completed [facility] 00:00:00 [facility] DTAP 2001-04-22 Completed [facility] 00:00:00 [facility] Hep B, Adol or Pedi 2001-04-22 Completed [facility] Dosage 00:00:00 [facility] Polio (IPV/OPV) 2001-04-22 Completed [facility] 00:00:00 [facility] DTAP 2001-04-22 Completed [facility] 00:00:00 [facility] HIB 4 Dose Schedule 2001-04-22 Completed [facility] 00:00:00 [facility] Hep B, Adol or Pedi 2001-04-22 Completed [facility] Dosage 00:00:00 [facility] HIB 4 Dose Schedule 2001-04-22 Completed [facility] 00:00:00 [facility] Polio (IPV/OPV) 2001-04-22 Completed [facility] 00:00:00 [facility] DTAP 2001-04-22 Completed [facility] 00:00:00 [facility] HIB 4 Dose Schedule 2001-04-22 Completed [facility] 00:00:00 [facility] Hep B, Adol or Pedi 2001-04-22 Completed [facility] Dosage 00:00:00 [facility] Polio (IPV/OPV) 2001-04-22 Completed [facility] 00:00:00 [facility] Hep B, Adol or Pedi 2001-04-22 Completed [facility] Dosage 00:00:00 [facility] Polio (IPV/OPV) 2001-04-22 Completed [facility] 00:00:00 [facility] Polio (IPV/OPV) 2001-04-22 Completed [facility] 00:00:00 [facility] DTAP 2001-04-22 Completed [facility] 00:00:00 [facility] HIB 4 Dose Schedule 2001-04-22 Completed [facility] 00:00:00 [facility] Hep B, Adol or Pedi 2001-04-22 Completed [facility] Dosage 00:00:00 [facility] Polio (IPV/OPV) 2001-04-22 Completed [facility] 00:00:00 [facility] DTAP 2001-04-22 Completed [facility] 00:00:00 [facility] HIB 4 Dose Schedule 2001-04-22 Completed [facility] 00:00:00 [facility] Hep B, Adol or Pedi 2001-04-22 Completed [facility] Dosage 00:00:00 [facility] Polio (IPV/OPV) 2001-04-22 Completed [facility] 00:00:00 [facility] DTAP 2001-04-22 Completed [facility] 00:00:00 [facility] HIB 4 Dose Schedule 2001-04-22 Completed [facility] 00:00:00 [facility] Hep B, Adol or Pedi 2001-04-22 Completed [facility] Dosage 00:00:00 [facility] Polio (IPV/OPV) 2001-04-22 Completed [facility] 00:00:00 [facility] DTAP 2001-04-22 Completed [facility] 00:00:00 [facility] HIB 4 Dose Schedule 2001-04-22 Completed [facility] 00:00:00 [facility] Hep B, Adol or Pedi 2001-04-22 Completed [facility] Dosage 00:00:00 [facility] DTAP 2001-04-22 Completed [facility] 00:00:00 [facility] Polio (IPV/OPV) 2001-04-22 Completed [facility] 00:00:00 [facility] DTAP 2001-04-22 Completed [facility] 00:00:00 [facility] HIB 4 Dose Schedule 2001-04-22 Completed [facility] 00:00:00 [facility] Hep B, Adol or Pedi 2001-04-22 Completed [facility] Dosage 00:00:00 [facility] Polio (IPV/OPV) 2001-04-22 Completed [facility] 00:00:00 [facility] HIB 4 Dose Schedule 2001-04-22 Completed [facility] 00:00:00 [facility] DTAP 2001-04-22 Completed [facility] 00:00:00 [facility] HIB 4 Dose Schedule 2001-04-22 Completed [facility] 00:00:00 [facility] Hep B, Adol or Pedi 2001-04-22 Completed [facility] Dosage 00:00:00 [facility] Polio (IPV/OPV) 2001-04-22 Completed [facility] 00:00:00 [facility] DTAP 2001-04-22 Completed [facility] 00:00:00 [facility] Hep B, Adol or Pedi 2001-04-22 Completed [facility] Dosage 00:00:00 [facility] HIB 4 Dose Schedule 2001-04-22 Completed [facility] 00:00:00 [facility] Hep B, Adol or Pedi 2001-04-22 Completed [facility] Dosage 00:00:00 [facility] Polio (IPV/OPV) 2001-04-22 Completed [facility] 00:00:00 [facility] DTAP 2001-04-22 Completed [facility] 00:00:00 [facility] HIB 4 Dose Schedule 2001-04-22 Completed [facility] 00:00:00 [facility] Hep B, Adol or Pedi 2001-04-22 Completed [facility] Dosage 00:00:00 [facility] Polio (IPV/OPV) 2001-04-22 Completed [facility] 00:00:00 [facility] Polio (IPV/OPV) 2001-04-22 Completed [facility] 00:00:00 [facility] DTAP 2001-04-22 Completed [facility] 00:00:00 [facility] HIB 4 Dose Schedule 2001-04-22 Completed [facility] 00:00:00 [facility] Hep B, Adol or Pedi 2001-04-22 Completed [facility] Dosage 00:00:00 [facility] Polio (IPV/OPV) 2001-04-22 Completed [facility] 00:00:00 [facility] DTAP 2001-04-22 Completed [facility] 00:00:00 [facility] HIB 4 Dose Schedule 2001-04-22 Completed [facility] 00:00:00 [facility] Hep B, Adol or Pedi 2001-04-22 Completed [facility] Dosage 00:00:00 [facility] Polio (IPV/OPV) 2001-04-22 Completed [facility] 00:00:00 [facility] DTAP 2001-04-22 Completed [facility] 00:00:00 [facility] HIB 4 Dose Schedule 2001-04-22 Completed [facility] 00:00:00 [facility] Hep B, Adol or Pedi 2001-04-22 Completed [facility] Dosage 00:00:00 [facility] Polio (IPV/OPV) 2001-04-22 Completed [facility] 00:00:00 [facility] DTAP 2001-04-22 Completed [facility] 00:00:00 [facility] HIB 4 Dose Schedule 2001-04-22 Completed [facility] 00:00:00 [facility] Hep B, Adol or Pedi 2001-04-22 Completed [facility] Dosage 00:00:00 [facility] Polio (IPV/OPV) 2001-04-22 Completed [facility] 00:00:00 [facility] DTAP 2001-04-22 Completed [facility] 00:00:00 [facility] HIB 4 Dose Schedule 2001-04-22 Completed [facility] 00:00:00 [facility] Hep B, Adol or Pedi 2001-04-22 Completed [facility] Dosage 00:00:00 [facility] Polio (IPV/OPV) 2001-04-22 Completed [facility] 00:00:00 [facility] DTAP 2001-04-22 Completed [facility] 00:00:00 [facility] HIB 4 Dose Schedule 2001-04-22 Completed [facility] 00:00:00 [facility] DTAP 2001-04-22 Completed [facility] 00:00:00 [facility] Hep B, Adol or Pedi 2001-04-22 Completed [facility] Dosage 00:00:00 [facility] Polio (IPV/OPV) 2001-04-22 Completed [facility] 00:00:00 [facility] HIB 4 Dose Schedule 2001-04-22 Completed [facility] 00:00:00 [facility] DTAP 2001-04-22 Completed [facility] 00:00:00 [facility] DTAP 2001-04-22 Completed [facility] 00:00:00 [facility] HIB 4 Dose Schedule 2001-04-22 Completed [facility] 00:00:00 [facility] Hep B, Adol or Pedi 2001-04-22 Completed [facility] Dosage 00:00:00 [facility] Polio (IPV/OPV) 2001-04-22 Completed [facility] 00:00:00 [facility] Hep B, Adol or Pedi 2001-04-22 Completed [facility] Dosage 00:00:00 [facility] DTAP 2001-04-22 Completed [facility] 00:00:00 [facility] HIB 4 Dose Schedule 2001-04-22 Completed [facility] 00:00:00 [facility] Polio (IPV/OPV) 2001-01-21 Completed [facility] 00:00:00 [facility] Hep B, Adol or Pedi 2001-01-21 Completed [facility] Dosage 00:00:00 [facility] Polio (IPV/OPV) 2001-01-21 Completed [facility] 00:00:00 [facility] DTAP 2001-01-21 Completed [facility] 00:00:00 [facility] HIB 4 Dose Schedule 2001-01-21 Completed [facility] 00:00:00 [facility] Hep B, Adol or Pedi 2001-01-21 Completed [facility] Dosage 00:00:00 [facility] Polio (IPV/OPV) 2001-01-21 Completed [facility] 00:00:00 [facility] DTAP 2001-01-21 Completed [facility] 00:00:00 [facility] HIB 4 Dose Schedule 2001-01-21 Completed [facility] 00:00:00 [facility] Hep B, Adol or Pedi 2001-01-21 Completed [facility] Dosage 00:00:00 [facility] Polio (IPV/OPV) 2001-01-21 Completed [facility] 00:00:00 [facility] DTAP 2001-01-21 Completed [facility] 00:00:00 [facility] HIB 4 Dose Schedule 2001-01-21 Completed [facility] 00:00:00 [facility] Hep B, Adol or Pedi 2001-01-21 Completed [facility] Dosage 00:00:00 [facility] Polio (IPV/OPV) 2001-01-21 Completed [facility] 00:00:00 [facility] DTAP 2001-01-21 Completed [facility] 00:00:00 [facility] HIB 4 Dose Schedule 2001-01-21 Completed [facility] 00:00:00 [facility] Hep B, Adol or Pedi 2001-01-21 Completed [facility] Dosage 00:00:00 [facility] DTAP 2001-01-21 Completed [facility] 00:00:00 [facility] Polio (IPV/OPV) 2001-01-21 Completed [facility] 00:00:00 [facility] DTAP 2001-01-21 Completed [facility] 00:00:00 [facility] HIB 4 Dose Schedule 2001-01-21 Completed [facility] 00:00:00 [facility] Hep B, Adol or Pedi 2001-01-21 Completed [facility] Dosage 00:00:00 [facility] Polio (IPV/OPV) 2001-01-21 Completed [facility] 00:00:00 [facility] HIB 4 Dose Schedule 2001-01-21 Completed [facility] 00:00:00 [facility] DTAP 2001-01-21 Completed [facility] 00:00:00 [facility] HIB 4 Dose Schedule 2001-01-21 Completed [facility] 00:00:00 [facility] Hep B, Adol or Pedi 2001-01-21 Completed [facility] Dosage 00:00:00 [facility] Polio (IPV/OPV) 2001-01-21 Completed [facility] 00:00:00 [facility] DTAP 2001-01-21 Completed [facility] 00:00:00 [facility] HIB 4 Dose Schedule 2001-01-21 Completed [facility] 00:00:00 [facility] Hep B, Adol or Pedi 2001-01-21 Completed [facility] Dosage 00:00:00 [facility] Polio (IPV/OPV) 2001-01-21 Completed [facility] 00:00:00 [facility] Hep B, Adol or Pedi 2001-01-21 Completed [facility] Dosage 00:00:00 [facility] DTAP 2001-01-21 Completed [facility] 00:00:00 [facility] HIB 4 Dose Schedule 2001-01-21 Completed [facility] 00:00:00 [facility] HIB 4 Dose Schedule 2001-01-21 Completed [facility] 00:00:00 [facility] Hep B, Adol or Pedi 2001-01-21 Completed [facility] Dosage 00:00:00 [facility] Polio (IPV/OPV) 2001-01-21 Completed [facility] 00:00:00 [facility] Polio (IPV/OPV) 2001-01-21 Completed [facility] 00:00:00 [facility] DTAP 2001-01-21 Completed [facility] 00:00:00 [facility] HIB 4 Dose Schedule 2001-01-21 Completed [facility] 00:00:00 [facility] Hep B, Adol or Pedi 2001-01-21 Completed [facility] Dosage 00:00:00 [facility] Polio (IPV/OPV) 2001-01-21 Completed [facility] 00:00:00 [facility] DTAP 2001-01-21 Completed [facility] 00:00:00 [facility] HIB 4 Dose Schedule 2001-01-21 Completed [facility] 00:00:00 [facility] Hep B, Adol or Pedi 2001-01-21 Completed [facility] Dosage 00:00:00 [facility] Polio (IPV/OPV) 2001-01-21 Completed [facility] 00:00:00 [facility] DTAP 2001-01-21 Completed [facility] 00:00:00 [facility] HIB 4 Dose Schedule 2001-01-21 Completed [facility] 00:00:00 [facility] Hep B, Adol or Pedi 2001-01-21 Completed [facility] Dosage 00:00:00 [facility] Polio (IPV/OPV) 2001-01-21 Completed [facility] 00:00:00 [facility] DTAP 2001-01-21 Completed [facility] 00:00:00 [facility] DTAP 2001-01-21 Completed [facility] 00:00:00 [facility] HIB 4 Dose Schedule 2001-01-21 Completed [facility] 00:00:00 [facility] Hep B, Adol or Pedi 2001-01-21 Completed [facility] Dosage 00:00:00 [facility] Polio (IPV/OPV) 2001-01-21 Completed [facility] 00:00:00 [facility] DTAP 2001-01-21 Completed [facility] 00:00:00 [facility] HIB 4 Dose Schedule 2001-01-21 Completed [facility] 00:00:00 [facility] Hep B, Adol or Pedi 2001-01-21 Completed [facility] Dosage 00:00:00 [facility] HIB 4 Dose Schedule 2001-01-21 Completed [facility] 00:00:00 [facility] Polio (IPV/OPV) 2001-01-21 Completed [facility] 00:00:00 [facility] DTAP 2001-01-21 Completed [facility] 00:00:00 [facility] HIB 4 Dose Schedule 2001-01-21 Completed [facility] 00:00:00 [facility] Hep B, Adol or Pedi 2001-01-21 Completed [facility] Dosage 00:00:00 [facility] Polio (IPV/OPV) 2001-01-21 Completed [facility] 00:00:00 [facility] DTAP 2001-01-21 Completed [facility] 00:00:00 [facility] HIB 4 Dose Schedule 2001-01-21 Completed [facility] 00:00:00 [facility] Hep B, Adol or Pedi 2001-01-21 Completed [facility] Dosage 00:00:00 [facility] Hep B, Adol or Pedi 2001-01-21 Completed [facility] Dosage 00:00:00 [facility] Polio (IPV/OPV) 2001-01-21 Completed [facility] 00:00:00 [facility] DTAP 2001-01-21 Completed [facility] 00:00:00 [facility] HIB 4 Dose Schedule 2001-01-21 Completed [facility] 00:00:00 [facility] Hep B, Adol or Pedi 2001-01-21 Completed [facility] Dosage 00:00:00 [facility] Polio (IPV/OPV) 2001-01-21 Completed [facility] 00:00:00 [facility] DTAP 2001-01-21 Completed [facility] 00:00:00 [facility] Polio (IPV/OPV) 2001-01-21 Completed [facility] 00:00:00 [facility] HIB 4 Dose Schedule 2001-01-21 Completed [facility] 00:00:00 [facility] Hep B, Adol or Pedi 2001-01-21 Completed [facility] Dosage 00:00:00 [facility] Polio (IPV/OPV) 2001-01-21 Completed [facility] 00:00:00 [facility] DTAP 2001-01-21 Completed [facility] 00:00:00 [facility] HIB 4 Dose Schedule 2001-01-21 Completed [facility] 00:00:00 [facility] Hep B, Adol or Pedi 2001-01-21 Completed [facility] Dosage 00:00:00 [facility] Polio (IPV/OPV) 2001-01-21 Completed [facility] 00:00:00 [facility] DTAP 2001-01-21 Completed [facility] 00:00:00 [facility] HIB 4 Dose Schedule 2001-01-21 Completed [facility] 00:00:00 [facility] Hep B, Adol or Pedi 2001-01-21 Completed [facility] Dosage 00:00:00 [facility] Polio (IPV/OPV) 2001-01-21 Completed [facility] 00:00:00 [facility] DTAP 2001-01-21 Completed [facility] 00:00:00 [facility] HIB 4 Dose Schedule 2001-01-21 Completed [facility] 00:00:00 [facility] Hep B, Adol or Pedi 2001-01-21 Completed [facility] Dosage 00:00:00 [facility] Polio (IPV/OPV) 2001-01-21 Completed [facility] 00:00:00 [facility] DTAP 2001-01-21 Completed [facility] 00:00:00 [facility] HIB 4 Dose Schedule 2001-01-21 Completed [facility] 00:00:00 [facility] Hep B, Adol or Pedi 2001-01-21 Completed [facility] Dosage 00:00:00 [facility] Polio (IPV/OPV) 2001-01-21 Completed [facility] 00:00:00 [facility] DTAP 2001-01-21 Completed [facility] 00:00:00 [facility] HIB 4 Dose Schedule 2001-01-21 Completed [facility] 00:00:00 [facility] Hep B, Adol or Pedi 2001-01-21 Completed [facility] Dosage 00:00:00 [facility] Polio (IPV/OPV) 2001-01-21 Completed [facility] 00:00:00 [facility] DTAP 2001-01-21 Completed [facility] 00:00:00 [facility] HIB 4 Dose Schedule 2001-01-21 Completed [facility] 00:00:00 [facility] Hep B, Adol or Pedi 2001-01-21 Completed [facility] Dosage 00:00:00 [facility] Polio (IPV/OPV) 2001-01-21 Completed [facility] 00:00:00 [facility] DTAP 2001-01-21 Completed [facility] 00:00:00 [facility] DTAP 2001-01-21 Completed [facility] 00:00:00 [facility] HIB 4 Dose Schedule 2001-01-21 Completed [facility] 00:00:00 [facility] HIB 4 Dose Schedule 2001-01-21 Completed [facility] 00:00:00 [facility] Hep B, Adol or Pedi 2001-01-21 Completed [facility] Dosage 00:00:00 [facility] Polio (IPV/OPV) 2001-01-21 Completed [facility] 00:00:00 [facility] DTAP 2001-01-21 Completed [facility] 00:00:00 [facility] HIB 4 Dose Schedule 2001-01-21 Completed [facility] 00:00:00 [facility] Hep B, Adol or Pedi 2001-01-21 Completed [facility] Dosage 00:00:00 [facility] Hep B, Adol or Pedi 2001-01-21 Completed [facility] Dosage 00:00:00 [facility] Polio (IPV/OPV) 2001-01-21 Completed [facility] 00:00:00 [facility] DTAP 2001-01-21 Completed [facility] 00:00:00 [facility] Hep B, Adol or Pedi 2001-01-21 Completed [facility] Dosage 00:00:00 [facility] HIB 4 Dose Schedule 2001-01-21 Completed [facility] 00:00:00 [facility] Hep B, Adol or Pedi 2001-01-21 Completed [facility] Dosage 00:00:00 [facility] Polio (IPV/OPV) 2001-01-21 Completed [facility] 00:00:00 [facility] DTAP 2001-01-21 Completed [facility] 00:00:00 [facility] HIB 4 Dose Schedule 2001-01-21 Completed [facility] 00:00:00 [facility] Polio (IPV/OPV) 2001-01-21 Completed [facility] 00:00:00 [facility] Hep B, Adol or Pedi 2001-01-21 Completed [facility] Dosage 00:00:00 [facility] Polio (IPV/OPV) 2001-01-21 Completed [facility] 00:00:00 [facility] DTAP 2001-01-21 Completed [facility] 00:00:00 [facility] HIB 4 Dose Schedule 2001-01-21 Completed [facility] 00:00:00 [facility] Hep B, Adol or Pedi 2001-01-21 Completed [facility] Dosage 00:00:00 [facility] Polio (IPV/OPV) 2001-01-21 Completed [facility] 00:00:00 [facility] DTAP 2001-01-21 Completed [facility] 00:00:00 [facility] HIB 4 Dose Schedule 2001-01-21 Completed [facility] 00:00:00 [facility] Hep B, Adol or Pedi 2001-01-21 Completed [facility] Dosage 00:00:00 [facility] Polio (IPV/OPV) 2001-01-21 Completed [facility] 00:00:00 [facility] DTAP 2001-01-21 Completed [facility] 00:00:00 [facility] HIB 4 Dose Schedule 2001-01-21 Completed [facility] 00:00:00 [facility] Hep B, Adol or Pedi 2001-01-21 Completed [facility] Dosage 00:00:00 [facility] Polio (IPV/OPV) 2001-01-21 Completed [facility] 00:00:00 [facility] DTAP 2001-01-21 Completed [facility] 00:00:00 [facility] HIB 4 Dose Schedule 2001-01-21 Completed [facility] 00:00:00 [facility] Hep B, Adol or Pedi 2001-01-21 Completed [facility] Dosage 00:00:00 [facility] Polio (IPV/OPV) 2001-01-21 Completed [facility] 00:00:00 [facility] DTAP 2001-01-21 Completed [facility] 00:00:00 [facility] DTAP 2001-01-21 Completed [facility] 00:00:00 [facility] HIB 4 Dose Schedule 2001-01-21 Completed [facility] 00:00:00 [facility] Hep B, Adol or Pedi 2001-01-21 Completed [facility] Dosage 00:00:00 [facility] Polio (IPV/OPV) 2001-01-21 Completed [facility] 00:00:00 [facility] DTAP 2001-01-21 Completed [facility] 00:00:00 [facility] HIB 4 Dose Schedule 2001-01-21 Completed [facility] 00:00:00 [facility] HIB 4 Dose Schedule 2001-01-21 Completed [facility] 00:00:00 [facility] Hep B, Adol or Pedi 2001-01-21 Completed [facility] Dosage 00:00:00 [facility] Polio (IPV/OPV) 2001-01-21 Completed [facility] 00:00:00 [facility] DTAP 2001-01-21 Completed [facility] 00:00:00 [facility] HIB 4 Dose Schedule 2001-01-21 Completed [facility] 00:00:00 [facility] Hep B, Adol or Pedi 2001-01-21 Completed [facility] Dosage 00:00:00 [facility] Polio (IPV/OPV) 2001-01-21 Completed [facility] 00:00:00 [facility] Hep B, Adol or Pedi 2001-01-21 Completed [facility] Dosage 00:00:00 [facility] Polio (IPV/OPV) 2001-01-21 Completed [facility] 00:00:00 [facility] Polio (IPV/OPV) 2001-01-21 Completed [facility] 00:00:00 [facility] DTAP 2001-01-21 Completed [facility] 00:00:00 [facility] HIB 4 Dose Schedule 2001-01-21 Completed [facility] 00:00:00 [facility] Hep B, Adol or Pedi 2001-01-21 Completed [facility] Dosage 00:00:00 [facility] Polio (IPV/OPV) 2001-01-21 Completed [facility] 00:00:00 [facility] DTAP 2001-01-21 Completed [facility] 00:00:00 [facility] HIB 4 Dose Schedule 2001-01-21 Completed [facility] 00:00:00 [facility] Hep B, Adol or Pedi 2001-01-21 Completed [facility] Dosage 00:00:00 [facility] Polio (IPV/OPV) 2001-01-21 Completed [facility] 00:00:00 [facility] DTAP 2001-01-21 Completed [facility] 00:00:00 [facility] HIB 4 Dose Schedule 2001-01-21 Completed [facility] 00:00:00 [facility] Hep B, Adol or Pedi 2001-01-21 Completed [facility] Dosage 00:00:00 [facility] Polio (IPV/OPV) 2001-01-21 Completed [facility] 00:00:00 [facility] DTAP 2001-01-21 Completed [facility] 00:00:00 [facility] HIB 4 Dose Schedule 2001-01-21 Completed [facility] 00:00:00 [facility] DTAP 2001-01-21 Completed [facility] 00:00:00 [facility] Hep B, Adol or Pedi 2001-01-21 Completed [facility] Dosage 00:00:00 [facility] Polio (IPV/OPV) 2001-01-21 Completed [facility] 00:00:00 [facility] DTAP 2001-01-21 Completed [facility] 00:00:00 [facility] HIB 4 Dose Schedule 2001-01-21 Completed [facility] 00:00:00 [facility] Hep B, Adol or Pedi 2001-01-21 Completed [facility] Dosage 00:00:00 [facility] HIB 4 Dose Schedule 2001-01-21 Completed [facility] 00:00:00 [facility] Polio (IPV/OPV) 2001-01-21 Completed [facility] 00:00:00 [facility] DTAP 2001-01-21 Completed [facility] 00:00:00 [facility] HIB 4 Dose Schedule 2001-01-21 Completed [facility] 00:00:00 [facility] Hep B, Adol or Pedi 2001-01-21 Completed [facility] Dosage 00:00:00 [facility] Polio (IPV/OPV) 2001-01-21 Completed [facility] 00:00:00 [facility] Hep B, Adol or Pedi 2001-01-21 Completed [facility] Dosage 00:00:00 [facility] DTAP 2001-01-21 Completed [facility] 00:00:00 [facility] HIB 4 Dose Schedule 2001-01-21 Completed [facility] 00:00:00 [facility] Hep B, Adol or Pedi 2001-01-21 Completed [facility] Dosage 00:00:00 [facility] Polio (IPV/OPV) 2001-01-21 Completed [facility] 00:00:00 [facility] DTAP 2001-01-21 Completed [facility] 00:00:00 [facility] HIB 4 Dose Schedule 2001-01-21 Completed [facility] 00:00:00 [facility] Hep B, Adol or Pedi 2001-01-21 Completed [facility] Dosage 00:00:00 [facility] Polio (IPV/OPV) 2001-01-21 Completed [facility] 00:00:00 [facility] Polio (IPV/OPV) 2001-01-21 Completed [facility] 00:00:00 [facility] DTAP 2001-01-21 Completed [facility] 00:00:00 [facility] HIB 4 Dose Schedule 2001-01-21 Completed [facility] 00:00:00 [facility] Hep B, Adol or Pedi 2001-01-21 Completed [facility] Dosage 00:00:00 [facility] Polio (IPV/OPV) 2001-01-21 Completed [facility] 00:00:00 [facility] DTAP 2001-01-21 Completed [facility] 00:00:00 [facility] HIB 4 Dose Schedule 2001-01-21 Completed [facility] 00:00:00 [facility] Hep B, Adol or Pedi 2001-01-21 Completed [facility] Dosage 00:00:00 [facility] Polio (IPV/OPV) 2001-01-21 Completed [facility] 00:00:00 [facility] DTAP 2001-01-21 Completed [facility] 00:00:00 [facility] HIB 4 Dose Schedule 2001-01-21 Completed [facility] 00:00:00 [facility] Hep B, Adol or Pedi 2001-01-21 Completed [facility] Dosage 00:00:00 [facility] Polio (IPV/OPV) 2001-01-21 Completed [facility] 00:00:00 [facility] DTAP 2001-01-21 Completed [facility] 00:00:00 [facility] HIB 4 Dose Schedule 2001-01-21 Completed [facility] 00:00:00 [facility] Hep B, Adol or Pedi 2001-01-21 Completed [facility] Dosage 00:00:00 [facility] Polio (IPV/OPV) 2001-01-21 Completed [facility] 00:00:00 [facility] DTAP 2001-01-21 Completed [facility] 00:00:00 [facility] HIB 4 Dose Schedule 2001-01-21 Completed [facility] 00:00:00 [facility] Hep B, Adol or Pedi 2001-01-21 Completed [facility] Dosage 00:00:00 [facility] Polio (IPV/OPV) 2001-01-21 Completed [facility] 00:00:00 [facility] DTAP 2001-01-21 Completed [facility] 00:00:00 [facility] DTAP 2001-01-21 Completed [facility] 00:00:00 [facility] DTAP 2001-01-21 Completed [facility] 00:00:00 [facility] HIB 4 Dose Schedule 2001-01-21 Completed [facility] 00:00:00 [facility] Hep B, Adol or Pedi 2001-01-21 Completed [facility] Dosage 00:00:00 [facility] Polio (IPV/OPV) 2001-01-21 Completed [facility] 00:00:00 [facility] HIB 4 Dose Schedule 2001-01-21 Completed [facility] 00:00:00 [facility] DTAP 2001-01-21 Completed [facility] 00:00:00 [facility] HIB 4 Dose Schedule 2001-01-21 Completed [facility] 00:00:00 [facility] Hep B, Adol or Pedi 2001-01-21 Completed [facility] Dosage 00:00:00 [facility] Polio (IPV/OPV) 2001-01-21 Completed [facility] 00:00:00 [facility] Hep B, Adol or Pedi 2001-01-21 Completed [facility] Dosage 00:00:00 [facility] DTAP 2001-01-21 Completed [facility] 00:00:00 [facility] HIB 4 Dose Schedule 2001-01-21 Completed [facility] 00:00:00 [facility] Hep B, Adol or Pedi 2000 Completed [facility] Dosage 00:00:00 [facility] Hep B, Adol or Pedi 2000 Completed [facility] Dosage 00:00:00 [facility] Hep B, Adol or Pedi 2000 Completed [facility] Dosage 00:00:00 [facility] Hep B, Adol or Pedi 2000 Completed [facility] Dosage 00:00:00 [facility] Hep B, Adol or Pedi 2000 Completed [facility] Dosage 00:00:00 [facility] Hep B, Adol or Pedi 2000 Completed [facility] Dosage 00:00:00 [facility] Hep B, Adol or Pedi 2000 Completed [facility] Dosage 00:00:00 [facility] Hep B, Adol or Pedi 2000 Completed [facility] Dosage 00:00:00 [facility] Hep B, Adol or Pedi 2000 Completed [facility] Dosage 00:00:00 [facility] Hep B, Adol or Pedi 2000 Completed [facility] Dosage 00:00:00 [facility] Hep B, Adol or Pedi 2000 Completed [facility] Dosage 00:00:00 [facility] Hep B, Adol or Pedi 2000 Completed [facility] Dosage 00:00:00 [facility] Hep B, Adol or Pedi 2000 Completed [facility] Dosage 00:00:00 [facility] Hep B, Adol or Pedi 2000 Completed [facility] Dosage 00:00:00 [facility] Hep B, Adol or Pedi 2000 Completed [facility] Dosage 00:00:00 [facility] Hep B, Adol or Pedi 2000 Completed [facility] Dosage 00:00:00 [facility] Hep B, Adol or Pedi 2000 Completed [facility] Dosage 00:00:00 [facility] Hep B, Adol or Pedi 2000 Completed [facility] Dosage 00:00:00 [facility] Hep B, Adol or Pedi 2000 Completed [facility] Dosage 00:00:00 [facility] Hep B, Adol or Pedi 2000 Completed [facility] Dosage 00:00:00 [facility] Hep B, Adol or Pedi 2000 Completed [facility] Dosage 00:00:00 [facility] Hep B, Adol or Pedi 2000 Completed [facility] Dosage 00:00:00 [facility] Hep B, Adol or Pedi 2000 Completed [facility] Dosage 00:00:00 [facility] Hep B, Adol or Pedi 2000 Completed [facility] Dosage 00:00:00 [facility] Hep B, Adol or Pedi 2000 Completed [facility] Dosage 00:00:00 [facility] Hep B, Adol or Pedi 2000 Completed [facility] Dosage 00:00:00 [facility] Hep B, Adol or Pedi 2000 Completed [facility] Dosage 00:00:00 [facility] Hep B, Adol or Pedi 2000 Completed [facility] Dosage 00:00:00 [facility] Hep B, Adol or Pedi 2000 Completed [facility] Dosage 00:00:00 [facility] Hep B, Adol or Pedi 2000 Completed [facility] Dosage 00:00:00 [facility] Hep B, Adol or Pedi 2000 Completed [facility] Dosage 00:00:00 [facility] Hep B, Adol or Pedi 2000 Completed [facility] Dosage 00:00:00 [facility] Hep B, Adol or Pedi 2000 Completed [facility] Dosage 00:00:00 [facility] Hep B, Adol or Pedi 2000 Completed [facility] Dosage 00:00:00 [facility] Hep B, Adol or Pedi 2000 Completed [facility] Dosage 00:00:00 [facility] Hep B, Adol or Pedi 2000 Completed [facility] Dosage 00:00:00 [facility] Hep B, Adol or Pedi 2000 Completed [facility] Dosage 00:00:00 [facility] Hep B, Adol or Pedi 2000 Completed [facility] Dosage 00:00:00 [facility] Hep B, Adol or Pedi 2000 Completed [facility] Dosage 00:00:00 [facility] Hep B, Adol or Pedi 2000 Completed [facility] Dosage 00:00:00 [facility] Hep B, Adol or Pedi 2000 Completed [facility] Dosage 00:00:00 [facility] Hep B, Adol or Pedi 2000 Completed [facility] Dosage 00:00:00 [facility] Hep B, Adol or Pedi 2000 Completed [facility] Dosage 00:00:00 [facility] Hep B, Adol or Pedi 2000 Completed [facility] Dosage 00:00:00 [facility] Hep B, Adol or Pedi 2000 Completed [facility] Dosage 00:00:00 [facility] Hep B, Adol or Pedi 2000 Completed [facility] Dosage 00:00:00 [facility] Hep B, Adol or Pedi 2000 Completed [facility] Dosage 00:00:00 [facility] Hep B, Adol or Pedi 2000 Completed [facility] Dosage 00:00:00 [facility] Hep B, Adol or Pedi 2000 Completed [facility] Dosage 00:00:00 [facility] Hep B, Adol or Pedi 2000 Completed [facility] Dosage 00:00:00 [facility] Hep B, Adol or Pedi 2000 Completed [facility] Dosage 00:00:00 [facility] Hep B, Adol or Pedi 2000 Completed [facility] Dosage 00:00:00 [facility] Hep B, Adol or Pedi 2000 Completed [facility] Dosage 00:00:00 [facility] Hep B, Adol or Pedi 2000 Completed [facility] Dosage 00:00:00 [facility] Hep B, Adol or Pedi 2000 Completed [facility] Dosage 00:00:00 [facility] Hep B, Adol or Pedi 2000 Completed [facility] Dosage 00:00:00 [facility] Hep B, Adol or Pedi 2000 Completed [facility] Dosage 00:00:00 [facility] Vital Signs Vital Name Observation Time Observation Value Comments Source Systolic blood 2022-04-12 20:16:00 111 mm[Hg] [facility] Diastolic blood 2022-04-12 20:16:00 71 mm[Hg] [facility] Heart rate 2022-04-12 20:16:00 109 /min [facility] Body temperature 2022-04-12 20:16:00 37 [facility] Respiratory rate 2022-04-12 20:16:00 16 /min [facility] Body height 2022-04-12 20:16:00 170.2 cm [facility] Body weight 2022-04-12 20:16:00 61.281 kg [facility] BMI 2022-04-12 20:16:00 21.16 kg/m2 [facility] Oxygen saturation 2022-04-12 20:16:00 98 /min [facility] Arterial blood [facility] Systolic blood 2022-03-27 23:01:00 114 mm[Hg] [facility] pressure [facility] Diastolic blood 2022-03-27 23:01:00 75 mm[Hg] [facility] pressure [facility] Heart rate 2022-03-27 23:01:00 106 /min [facility] Body temperature 2022-03-27 23:01:00 37.22 [facility] Respiratory rate 2022-03-27 23:01:00 17 /min Univ [facility] Body weight 2022-03-27 23:01:00 65.318 kg [facility] BMI 2022-03-27 23:01:00 22.55 kg/m2 [facility] Oxygen saturation 2022-03-27 23:01:00 96 /min [facility] in Arterial blood [facility] Systolic blood 2022-01-05 21:04:00 111 mm[Hg] [facility] pressure [facility] Diastolic blood 2022-01-05 21:04:00 75 mm[Hg] [facility] pressure [facility] Heart rate 2022-01-05 21:04:00 83 /min [facility] Body temperature 2022-01-05 21:04:00 36.89 Karis [facility] Respiratory rate 2022-01-05 21:04:00 18 /min [facility] Branch Body height 2022-01-05 21:04:00 170.2 cm [facility] Body weight 2022-01-05 21:04:00 63.413 kg [facility] BMI 2022-01-05 21:04:00 21.90 kg/m2 [facility] Oxygen saturation 2022-01-05 21:04:00 100 /min Uni versity of in [facility] blood [facility] Pulse oximetry Branch Systolic blood 2021-11-28 17:40:00 116 mm[Hg] [facility] Diastolic blood 2021-11-28 17:40:00 80 mm[Hg] Unive [facility]ity [facility] Heart rate 2021-11-28 17:40:00 76 /min [facility] Body temperature 2021-11-28 17:40:00 36.94 Karis [facility] Respiratory rate 2021-11-28 17:40:00 18 /min [facility] Body height 2021-11-28 17:40:00 170.2 cm [facility] Body weight 2021-11-28 17:40:00 58.333 kg [facility] BMI 2021-11-28 17:40:00 20.14 kg/m2 [facility] Oxygen saturation 2021-11-28 17:40:00 98 /min Uni versity of in [facility] blood [facility] Pulse oxim[facility] Systolic blood 2021-11-26 20:37:00 123 mm[Hg] [facility] Diastolic blood 2021-11-26 20:37:00 85 mm[Hg] Unive [facility]ity [facility] Heart rate 2021-11-26 20:37:00 76 /min [facility] Body temperature 2021-11-26 20:37:00 36.89 Karis [facility] Respiratory rate 2021-11-26 20:37:00 18 /min [facility] weight 2021-11-26 20:37:00 57.289 kg Universi ty [facility] BMI 2021-11-26 20:37:00 19.78 kg/m2 [facility] Oxygen saturation 2021-11-26 20:37:00 100 /min Uni versity of in Arterial blood [facility] by Pulse oximetry Branch Systolic blood 2021-11-18 23:46:00 119 mm[Hg] Univer sity of pressure [facility] Diastolic blood 2021-11-18 23:46:00 74 mm[Hg] Unive rsity of [facility] Heart rate 2021-11-18 23:46:00 97 /min [facility] ty [facility] Body temperature 2021-11-18 23:46:00 36.89 Karis [facility] Respiratory rate 2021-11-18 23:46:00 18 /min [facility] Body height 2021-11-18 23:46:00 170.2 cm Universi ty [facility] Body weight 2021-11-18 23:46:00 56.881 kg [facility] BMI 2021-11-18 23:46:00 19.64 kg/m2 [facility] Oxygen saturation 2021-11-18 23:46:00 97 /min Uni versity of in Arterial blood [facility] by Pulse oximetry Branch BP Diastolic 2021-10-29 00:00:00 62 mm[Hg] [facility] Height 2021-10-29 00:00:00 67 [in_i] [facility] BMI (Body Mass 2021-10-29 00:00:00 18.8 [facility] BP Systolic 2021-10-29 00:00:00 112 mm[Hg] [facility] Body Weight 2021-10-29 00:00:00 120 [lb_av] [facility] BP Diastolic 2021-09-26 00:00:00 62 mm[Hg] [facility] Height 2021-09-26 00:00:00 67 [in_i] [facility] BMI (Body Mass 2021-09-26 00:00:00 17.2 kg/m2 [facility] Medical Index) BP Systolic 2021-09-26 00:00:00 110 mm[Hg] [facility] Body Weight 2021-09-26 00:00:00 110 [lb_av] [facility] temperature 2021-08-25 15:20:00 98.4 [degF] [facility] oximetry 2021-08-25 15:20:00 97 % [facility] heart rate 2021-08-25 15:20:00 102 /min [facility] BP Diastolic 2021-08-16 00:00:00 72 mm[Hg] [facility] Height 2021-08-16 00:00:00 67 [in_i] Ana aldana BMI (Body Mass 2021-08-16 00:00:00 17.7 kg/m2 [facility] Medical Index) BP Systolic 2021-08-16 00:00:00 102 mm[Hg] [facility] Body Weight 2021-08-16 00:00:00 113 [lb_av] [facility] BP Diastolic 2021-06-14 00:00:00 76 mm[Hg] [facility] Height 2021-06-14 00:00:00 67 [in_i] Ana aldana BMI (Body Mass 2021-06-14 00:00:00 19 kg/m2 [facility] Medical Index) BP Systolic 2021-06-14 00:00:00 102 mm[Hg] [facility] Body Weight 2021-06-14 00:00:00 121 [lb_av] [facility] Systolic blood 2019-12-02 18:51:00 120 mm[Hg] Univer sity of pressure [facility] Diastolic blood 2019-12-02 18:51:00 78 mm[Hg] Unive rsity of pressure [facility] Heart rate 2019-12-02 18:51:00 79 /min [facility] Body temperature 2019-12-02 18:51:00 36.17 Karis [facility] Respiratory rate 2019-12-02 18:51:00 16 /min [facility] Body height 2019-12-02 18:51:00 170.2 cm [facility] Body weight 2019-12-02 18:51:00 57.516 kg [facility] BMI 2019-12-02 18:51:00 19.86 kg/m2 [facility] Systolic blood 2019-11-04 19:06:00 117 mm[Hg] [facility] Diastolic blood 2019-11-04 19:06:00 80 mm[Hg] Unive rsity of pressure [facility] Heart rate 2019-11-04 19:06:00 86 /min Universi ty of [facility] Body temperature 2019-11-04 19:06:00 37 Karis Univ ersity of [facility] Respiratory rate 2019-11-04 19:06:00 16 /min Univ ersity of [facility] Body height 2019-11-04 19:06:00 170.2 cm [facility] Body weight 2019-11-04 19:06:00 59.563 kg [facility] BMI 2019-11-04 19:06:00 20.57 kg/m2 [facility] Systolic blood 2019-09-20 19:27:00 114 mm[Hg] [facility] Diastolic blood 2019-09-20 19:27:00 77 mm[Hg] Unive rsity of pressure [facility] Heart rate 2019-09-20 19:27:00 72 /min [facility] Body temperature 2019-09-20 19:27:00 36.61 Karis [facility] Respiratory rate 2019-09-20 19:27:00 16 /min Univ ersity of [facility] Body height 2019-09-20 19:27:00 170.2 cm [facility] Body weight 2019-09-20 19:27:00 59.194 kg [facility] BMI 2019-09-20 19:27:00 20.44 kg/m2 [facility] Systolic blood 2019-09-03 20:17:00 112 mm[Hg] [facility] Diastolic blood 2019-09-03 20:17:00 72 mm[Hg] Unive rsity of pressure [facility] Heart rate 2019-09-03 20:17:00 70 /min Universi ty of [facility] Body temperature 2019-09-03 20:17:00 36.44 Karis Univ ersity of [facility] Respiratory rate 2019-09-03 20:17:00 16 /min Univ ersity of [facility] Body height 2019-09-03 20:17:00 170.2 cm Universi ty of [facility] Body weight 2019-09-03 20:17:00 59.081 kg Universi ty of [facility] BMI 2019-09-03 20:17:00 20.40 kg/m2 Universi ty of [facility] Systolic blood 2019-07-28 17:00:00 141 mm[Hg] RN notified Univer sity of pressure [facility] Diastolic blood 2019-07-28 17:00:00 103 mm[Hg] RN notified Unive rsity of pressure [facility] Heart rate 2019-07-28 17:00:00 90 /min Universi ty of [facility] Body temperature 2019-07-28 17:00:00 37.11 Karis Univ ersity of [facility] Respiratory rate 2019-07-28 17:00:00 20 /min Univ ersity of [facility] Oxygen saturation 2019-07-28 17:00:00 98 /min Uni versity of in Arterial blood [facility] by Pulse oximetry Branch Body height 2019-07-25 18:47:00 170.2 cm Universi ty of [facility] Body weight 2019-07-25 18:47:00 72.576 kg Universi ty of [facility] BMI 2019-07-25 18:47:00 25.06 kg/m2 Universi ty of [facility] Systolic blood 2019-06-29 19:59:00 119 mm[Hg] Univer sity of pressure [facility] Diastolic blood 2019-06-29 19:59:00 79 mm[Hg] Unive rsity of pressure [facility] Heart rate 2019-06-29 19:59:00 76 /min Universi ty of [facility] Body temperature 2019-06-29 19:59:00 36.33 Karis Univ ersity of [facility] Respiratory rate 2019-06-29 19:59:00 16 /min Univ ersity of [facility] Body height 2019-06-29 19:59:00 170.2 cm [facility] Body weight 2019-06-29 19:59:00 65.885 kg [facility] BMI 2019-06-29 19:59:00 22.75 kg/m2 Universi ty of [facility] Systolic blood 2019-06-27 04:35:00 130 mm[Hg] Univer sity of pressure [facility] Diastolic blood 2019-06-27 04:35:00 87 mm[Hg] Unive rsity of pressure [facility] Heart rate 2019-06-27 04:35:00 76 /min Universi ty of [facility] Respiratory rate 2019-06-27 04:35:00 18 /min Univ ersity of [facility] Oxygen saturation 2019-06-27 04:35:00 100 /min Uni versity of in Arterial blood [facility] by Pulse oximetry Branch Body temperature 2019-06-27 03:39:00 36.94 Karis Univ ersity of [facility] Body height 2019-06-27 03:39:00 170.2 cm [facility] Body weight 2019-06-27 03:39:00 63.957 kg Universi ty of [facility] BMI 2019-06-27 03:39:00 22.08 kg/m2 Universi [facility] of [facility] Systolic blood 2019-06-19 02:16:00 131 mm[Hg] Univer sity of pressure [facility] Diastolic blood 2019-06-19 02:16:00 79 mm[Hg] Unive rsity of pressure [facility] Heart rate 2019-06-19 02:16:00 126 /min Universi ty of [facility] Body temperature 2019-06-19 02:16:00 37.56 Karis Univ ersity of [facility] Respiratory rate 2019-06-19 02:16:00 18 /min Univ ersity of [facility] Body height 2019-06-19 02:16:00 170.2 cm [facility] [place] [facility] [place] Body weight 2019-06-19 02:16:00 63.957 kg [facility] BMI 2019-06-19 02:16:00 22.08 kg/m2 Universi ty of [facility] Oxygen saturation 2019-06-19 02:16:00 97 /min Uni versity of in Arterial blood [facility] by Pulse oximetry Branch Systolic blood 2019-06-16 19:03:00 110 mm[Hg] Univer sity of pressure [facility] Diastolic blood 2019-06-16 19:03:00 70 mm[Hg] Unive rsity of pressure [facility] Heart rate 2019-06-16 19:03:00 76 /min Universi ty of [facility] Body temperature 2019-06-16 19:03:00 36.33 Karis Univ ersity of [facility] Respiratory rate 2019-06-16 19:03:00 16 /min Univ ersity of [facility] Body height 2019-06-16 19:03:00 170.2 cm Universi ty of [facility] Body weight 2019-06-16 19:03:00 63.957 kg Universi ty of [facility] BMI 2019-06-16 19:03:00 22.08 kg/m2 Universi ty of [facility] Heart rate 2019-05-26 16:37:00 79 /min Universi ty of [facility] Body temperature 2019-05-26 16:37:00 36.83 Karis Univ ersity of [facility] Respiratory rate 2019-05-26 16:37:00 18 /min Univ ersity of [facility] Body height 2019-05-26 16:37:00 170.2 cm Universi ty of [facility] Body weight 2019-05-26 16:37:00 59.194 kg Universi ty of [facility] BMI 2019-05-26 16:37:00 20.44 kg/m2 Universi ty of [facility] Systolic blood 2019-05-26 16:37:00 111 mm[Hg] Univer sity of pressure [facility] Diastolic blood 2019-05-26 16:37:00 68 mm[Hg] Unive rsity of pressure [facility] Systolic blood 2019-05-24 03:00:00 111 mm[Hg] Univer sity of pressure [facility] Branch Diastolic blood 2019-05-24 03:00:00 73 mm[Hg] Unive rsity of pressure [facility] Heart rate 2019-05-24 03:00:00 73 /min Universi ty of [facility] Respiratory rate 2019-05-24 03:00:00 16 /min Univ ersity of [facility] Oxygen saturation 2019-05-24 03:00:00 98 /min Uni versity of in Arterial blood [facility] by Pulse oximetry Branch Body temperature 2019-05-24 00:12:00 37.17 Karis [facility] Body height 2019-05-24 00:12:00 170.2 cm Universi [facility] Body weight 2019-05-24 00:12:00 [facility].792 [facility] 2019-05-24 00:12:00 19.26 kg/m2 [facility] Systolic blood 2018-11-25 19:05:00 120 mm[Hg] Univer sity of [facility] Diastolic blood 2018-11-25 19:05:00 84 mm[Hg] Unive [facility] Heart rate 2018-11-25 19:05:00 67 /min [facility] Body temperature 2018-11-25 19:05:00 36.28 Karis [facility] Respiratory rate 2018-11-25 19:05:00 18 /min [facility] Body height 2018-11-25 19:05:00 170.2 cm Universi [facility] Body weight 2018-11-25 19:05:00 50.077 kg [facility] BMI 2018-11-25 19:05:00 17.29 kg/m2 [facility] Oxygen saturation 2018-11-25 19:05:00 100 /min Uni versity of in Arterial blood [facility] by Pulse oximetry [place] Procedures Procedure Date / Time Performing Clinician Source Performed POCT MOLECULAR STREP 2022-01-05 21:09:00 Unknown, Attending [facility] URINALYSIS 2021-11-26 21:30:00 Cathy Dennison [facility] COVID-19 (ID NOW RAPID 2021-11-26 21:30:00 Cathy Dennison [facility] TESTING) Medical Branch CONSENT/REFUSAL FOR 2021-11-26 20:24:27 Doctor Odilon, [facility] DIAGNOSIS AND TREATMENT [facility] AUTHORIZATION FOR RELEASE 2021-10-01 05:01:00 Doctor Unakassandraigned, [facility] OF [facility] AUTHORIZATION FOR RELEASE 2021-08-16 05:01:00 Doctor Unassigned, [facility] OF PHI [facility] POCT URINALYSIS W/O 2019-09-03 20:21:00 Gilbert Headley Uni [facility] SPECIFIC GRAVITY [facility] VACCINATIONS - CONSENTS, 2019-08-17 05:01:00 Doctor Unassigned, [facility] ELIGIBILITY, HISTORY [facility] nch CBC WITH DIFFERENTIAL 2019-07-27 08:54:00 Bob Simmons [facility] GALV ONLY - SYPHILIS 2019-07-27 02:58:00 Olivia Jaimes [facility] IGG/IGM [facility] HB ABO GROUPING 2019-07-26 20:25:00 Mague, [facility] o f [facility] RHO (D) IMMUNE GLOBULIN 2019-07-26 20:25:00 Bob Simmons [facility] VENOUS CORD GAS 2019-07-26 15:33:00 [facility] PEL[facility] > 14 2019-07-25 21:32:[address] [facility] WEEKS [facility] US BIOPHYSICAL 2019-07-25 21:31:20 Teresa Guerrero [facility] PROFILE [facility] URINE CULTURE 2019-07-25 21:17:00 Teresa Guerrero [facility] GROUP B STREPTOCOCCUS BY 2019-07-25 20:45:[address] [facility] PCR [facility] Branch EXTRA TUBE SST 2019-07-25 19:36:00 Teresa Guerrero [facility] SGOT (ASPARTATE AMINO 2019-07-25 19:29:00 Teresa Guerrero [facility] TRANSFER) Medical Branch CREATININE 2019-07-25 19:29:00 Teresa uGerrero [facility] ALANINE AMINO 2019-07-25 19:29:00 Teresa Guerrero [facility] TRANSFERASE(SGPT Medical Branch LACTATE DEHYDROGENASE 2019-07-25 19:29:00 [facility]IC ACID 2019-07-25 19:29:00 Teresa Guerrero [facility] CBC WITH DIFFERENTIAL 2019-07-25 19:29:00 Diclemente, [facility] HEPATITIS B SURFACE 2019-07-25 19:29:00 Teresa [facility]errero [facility] [place] ADC OR OLYA ONLY - RPR 2019-07-25 19:29:00 Kelsea Guerrero [facility] HIV 1/2 AG-AB WITH REFLEX 2019-07-25 19:29:00 Kelsea Guerrero [facility] HB ABO GROUPING 2019-07-25 19:25:00 DicTeresa bajwa [facility] URINALYSIS 2019-07-25 19:19:00 Teresa Guerrero [facility] PROTEIN CREAT RATIO URINE 2019-07-25 19:19:[address] [facility] RANDOM [facility] CORONAVIRUS COVID-19 2019-07-25 19:18:00 Teresa Guerrero [facility] TESTING [facility] ASSIGNMENT OF BENEFITS 2019-07-25 18:24:02 Doctor Unassigned, [facility] Name [facility] [place] L&D VISIT (NON-DELIVERED) 2019-07-25 05:01:00 Doctor Odilon, [facility] Earth [facility] POCT URINALYSIS W/O 2019-06-29 20:03:00 Cherry Noriega [facility] SPECIFIC GRAVITY [facility] ADC,CLC OR LCC ONLY - 2019-06-19 02:21:00 Glo Aggarwal [facility] INFLUENZA A & B DIRECT Medical [place] ANTIGEN NOTICE OF PRIVACY 2019-06-19 02:13:03 Doctor Unakassandraigned, [facility] PRACTICES [facility] [place] CONSENT/REFUSAL FOR 2019-06-19 02:12:47 Doctor Odilon, [facility] DIAGNOSIS AND TREATMENT Earth [facility] TDAP (ADACEL) 2019-06-16 19:03:37 Cherry Noriega [facility] IMMUNIZATION Medical Branch POCT URINALYSIS GLUCOSE & 2019-05-26 16:42:[address] [facility] PROTEIN Medical Branch COMP. METABOLIC PANEL 2019-05-24 01:19:00 Abhay Stapleton [facility] ([id number]) [facility] CBC WITH DIFFERENTIAL 2019-05-24 01:19:00 [facility] 2019-05-24 01:19:00 Abhay Stapleton [place] o f [facility] NOTICE OF PRIVACY 2019-05-23 23:56:57 Doctor Dereje Donald [facility] PRACTICES [facility] [place] CONSENT/REFUSAL FOR 2019-05-23 23:56:38 Doctor Odilon [facility] DIAGNOSIS AND TREATMENT [facility] [place] INSURANCE CORRESPONDENCE 2018-11-25 05:01:00 Doctor Odilon, [facility] Earth [facility] Plan of Care Planned Activity Planned Date Details Comments Source Diagnostic Test Pending 2021-10-29 00:00:00 afp [facility] (alpha-fetoprotein) , serum [code = afp (alpha-fetoprotein) , serum] Diagnostic Test Pending 2021-10-29 00:00:00 unlisted lab [code [facility] = unlisted lab] Future Appointment 2022-06-14 00:00:00 [facility] [address] [facility]; [facility] [address], [place] [address] Encounters Start End Encounter Admission Attending Care Care Encounter Source Date/Time Date/Time Type Type Clinicians Facility Department ID 2021-08-25 Outpatient [facility] [id number] 15:42:00 [id number] [facility] Clinics 2021-02-08 Emergency [facility] [id number] Univers 17:45:57 ity of [facility] 2021-02-08 Outpatient P [facility] NATALI [id number] Univers 14:24:07 ity of [facility] 2021-02-08 Emergency [facility] [id number] Univers 14:23:59 ity of [facility] 2021-02-08 Outpatient P [facility] NATALI [id number] Univers 14:23:59 ity of [facility] 2021-02-08 Emergency [facility] [id number] Univers 13:07:34 ity of [facility] 2020-02-16 Inpatient Brent, CYNDI ENDO [id number] [facility]12 2022-04-12 Urgent EbAaron moreland [facility] [id number] Univers 14:00:00 14:20:00 Care Unknown, Attending HEALTH [id number] ity of [facility] [id number] Abdifatah as ROHAN?BLEA [id number] [address] MEDICAL OFFICE [facility] 2022-04-12 2022-04-12 Outpatient R BLAS [facility] [id number] Univers 14:00:00 14:00:00 RANBANG ity [facility] 2022-04-12 2022-04-12 Telephone Pcp, [facility] [id number] Univers 00:00:00 00:00:00 Patient HEALTH [id number] it y of Does Not [id number] ROHAN?BLEA [id number] [address] MEDICAL OFFICE [facility] 2022-04-12 2022-04-12 Telephone Provider, [facility] [id number] Univers 00:00:00 00:00:00 Ang Db HEALTH [id number] it y of Urgent Care [facility] [id number] [place] ROHAN?BLEA [id number] [address] MEDICAL OFFICE [facility] 2022-03-28 2022-03-28 Outpatient R SAMRA REYES [facility] B [id number] Univers 13:00:00 13:00:00 SAMRA REYES itjun [facility] 2022-03-27 2022-03-27 Urgent Melisa Arrieta [facility] [id number] Univers 16:40:00 17:00:00 Care Unknown, Attending HEALTH [id number] ity of [place] [id number] Abdifatah as ROHAN?BLEA [id number] [address] MEDICAL OFFICE [facility] 2022-03-27 2022-03-27 Outpatient R RONNIE [facility] [id number] Univers 16:40:00 16:40:00 MELISA morocho [facility] 2022-01-06 2022-01-06 Letter CHRIS Parikh [id number] Univers 00:00:00 00:00:00 (Out) Sarah Masters JUAN [id number] it [facility] [id number] Abdifatah as [id number] [facility] 019 [place] 2022-01-05 2022-01-05 [facility] [id number] Univers 16:00:00 16:32:05 ELAINA ity [facility] 2022-01-05 2022-01-05 Urgent [facility] [id number] Univers 16:00:00 16:32:05 Care Jerry [id number] [facility] [id number] Abdifatah as ROHAN?BLEA [id number] [address] MEDICAL OFFICE [facility] 2021-11-28 2021-11-28 Outpatient Liz HONEYCUTT [facility] [id number] Univers 12:40:00 13:06:39 CHRIS amadojun [facility] 2021-11-28 2021-11-28 Urgent Aaron Becerra [facility] [id number] Univers 12:40:00 13:00:00 Chris Rivero [facility] [id number] ity [facility] [id number] Abdifatah as ROHAN?BLEA [id number] [address] MEDICAL OFFICE [facility] 2021-11-26 2021-11-26 Emergency X JESI, [facility] ERT [id number] Univers 15:38:00 17:49:00 [facility] 2021-11-26 2021-11-26 [facility] [id number] Univers 15:38:00 17:49:00 Cathy CHOWDHURY [id number] ity [facility] [id number] [place] [id number] [place] [id number] [place] 2021-11-18 2021-11-18 Outpatient Liz BERMUDEZ [facility] [id number] Univers 18:20:00 19:17:01 SUSAN rashawn of [facility] 2021-11-18 2021-11-18 Urgent Susan Bermudez [facility] [id number] [facility] 18:20:00 19:17:01 Care Yinka Chris [facility] 350.1.13.10 ity of [place] 4.2.7.2.686 Abdifatah as ROHAN?BLEA [phone] Ms [address] MEDICAL OFFICE BUILDING 2021-11-02 2021-11-02 Outpatient GC_BVWC_Per PRIV PRIV 234 [id number] [facility] 11:40:00 11:40:00 rone_J [id number] Medica l 2021-10-29 2021-10-29 Outpatient GC_BVWC_Per PRIV PRIV 234 [id number] [facility] 12:32:00 12:32:00 rone_J [id number] Medica l 2021-10-29 2021-10-29 [facility] 1602 GC_BVWC_Col [facility] [address], [place] Office* [address], [place] [address] , Ph. 2021-10-29 2021-10-29 Outpatient Riley, [facility] PRIV [id number] 8a-[id number] 00:00:00 00:00:00 Olimpia [id number] 2021-10-01 2021-10-01 Orders Doctor CHRIS 1.2.840.114 [id number] [facility] 00:00:00 00:00:00 Only Unassigned, JUAN 350.1.13.10 ity of [place] [facility] 4.2.7.2.686 Abdifatah as [phone] [address] 2021-09-26 2021-09-26 Outpatient GC_BVWC_Per PRIV PRIV 234 [id number] [facility] 04:11:00 04:11:00 rone_J [id number] Medica l 2021-09-26 2021-09-26 Outpatient GC_BVWC_Per PRIV PRIV 234 [id number] [facility] 04:11:00 04:11:00 rone_J [id number] Medica l 2021-09-26 2021-09-26 Olimpia [facility] 00:00:00 00:00:00 Riley [facility] - Rk kim MD: 1602 GC_BVWC_Col [facility] [address], [place] Office* [address], [place] [address] , Ph. 2021-09-26 2021-09-26 Outpatient MAYA Lin PRIV [id number] 00:00:00 00:00:00 Olimpia [id number] 2021-09-19 2021-09-19 Outpatient GC_BVWC_Per PRIV PRIV 234 [id number] [facility] 12:20:00 12:20:00 rone_J [id number] Medica l 2021-08-25 2021-08-25 Office STLS [facility] [id number] C [address] 00:00:00 00:00:00 Visit, Marino Diaz Pt., Level [address] 2 [facility] ent Clinics 2021-08-21 2021-08-21 Outpatient GC_BVWC_Per PRIV PRIV 234 [id number] [facility] 03:10:00 03:10:00 rone_J [id number] Medica l 2021-08-18 2021-08-18 Outpatient PRIV PRIV [id number] [facility] 11:31:00 11:31:00 [id number] Medica l 2021-08-16 2021-08-16 Outpatient GC_BVWC_Per PRIV PRIV 234 [id number] [facility] 04:18:00 04:18:00 rone_J [id number] Medica l 2021-08-16 2021-08-16 Orders Doctor CHRIS 1.2.840.114 [id number] [facility] 00:00:00 00:00:00 Only Unassigned, JUAN 350.1.13.10 [place] of [place] [facility] 4.2.7.2.686 Abdifatah as [phone] [facility] [address] 2021-08-16 2021-08-16 Outpatient Riley, PRIV PRIV [id number] ac-c 00:00:00 00:00:00 Olimpia [id number] 1457-05-05 2021-08-16 Olimpia [facility] 00:00:00 00:00:00 Riley [facility] judy MD: 1602 GC_BVWC_Col [facility] [address], [place] Office* [address], [place] [address] , Ph. 2021-08-14 2021-08-14 Outpatient GC_BVWC_Per PRIV PRIV 234 [id number] [facility] 09:40:00 09:40:00 rone_J [id number] Medica l 2021-08-14 2021-08-14 Outpatient GC_BVWC_Per PRIV PRIV 234 [id number] [facility] 09:40:00 09:40:00 rone_J [id number] Medica l 2021-08-10 2021-08-10 Outpatient GC_BVWC_Per PRIV PRIV 234 [id number] [facility] 01:22:00 01:22:00 rone_J [id number] Medica l 2021-08-04 2021-08-04 Emergency ER Candi, STLSJX STLSJX [id number] STLSJX 10:29:00 12:34:00 Giuseppe -[id number] 2021-08-03 Outpatient GC_BVWC_Per PRIV PRIV 234 [id number] [facility] 11:49:00 11:49:00 rone_J [id number] Medica l 2021-07-30 2021-07-30 Emergency ER Slater, STLSJX STLSJX [id number] STLSJX 20:31:00 23:46:00 Christopher -[id number] 2021-06-18 2021-06-18 Outpatient GC_BVWC_Per PRIV PRIV 234 [id number] [facility] 08:51:00 08:51:00 rone_J [id number] Medica l 2021-06-14 2021-06-14 Outpatient GC_BVWC_Per PRIV PRIV 234 [id number] [facility] 03:55:00 03:55:00 rone_J [id number] Medica l 2021-06-14 2021-06-14 Outpatient Riley, PRIV PRIV [id number] b8-9 00:00:00 00:00:00 Olimpia [id number] 2021-06-14 2021-06-14 Olimpia [facility] 00:00:00 00:00:00 Riley [facility] MD: 1602 GC_BVWC_Col [facility] [address], [facility] Office* [address], [place] [address] , Ph. 2021-06-13 2021-06-13 Outpatient GC_BVWC_Per PRIV PRIV 234 [id number] [facility] 09:49:00 09:49:00 rone_J [id number] Medica l 2021-06-09 2021-06-09 Outpatient GC_BVWC_Sou PRIV PRIV 234 [id number] [facility] 11:44:00 11:44:00 th_J [id number] Medica l 2021-05-17 2021-05-17 Outpatient GC_BVWC_Sou PRIV PRIV 234 [id number] [facility] 05:19:00 05:19:00 th_J [id number] Medica l 2021-05-14 2021-05-14 Outpatient GC_BVWC_Sou PRIV PRIV 234 [id number] [facility] 10:30:00 10:30:00 th_J [id number] Medica l 2021-05-09 2021-05-09 Outpatient GC_BVWC_Per PRIV PRIV 234 [id number] [facility] 05:50:00 05:50:00 rone_J [id number] Medica l 2021-04-23 2021-04-23 Outpatient GC_BVWC_Per PRIV PRIV 234 [id number] [facility] 05:44:00 05:44:00 rone_J [id number] Medica l 2021-04-18 2021-04-18 Outpatient GC_BVWC_Per PRIV PRIV 234 [id number] [facility] 04:05:00 04:05:00 arlen_Beth [id number] Medica l 2020-07-04 2020-07-04 Patient Marino [facility] 1.2.840.114 [id number] Univers 00:00:00 00:00:00 Outreach Nicola PRIMARY 350.1.13.10 i ty of [facility] [place]2.7.2.[place] [phone] Ms dical [address] 2020-04-19 2020-04-19 Laboratory Lab, Adc Fam Pob I [facility] 1.2. 840.114 [id number] Univers 15:46:49 16:06:49 Only Nadiya Blanco [facility] 350.1.13.10 ity [facility] 4.2.7.2.686 Abdifatah as Professio [phone] Me dical nal [address] 2020-04-19 2020-04-19 Outpatient R BELLA [facility] [id number] Univers 15:20:00 15:20:00 [facility]-12-12 2019-12-12 Nurse CHRIS Jolly 1.2.840.114 [id number] Univers 00:00:00 00:00:00 Triage Adore MARTINEZ 350.1.13.10 it y [facility] 4.2.7.2.686 Abdifatah as [phone] [address] 2019-12-02 2019-12-02 Outpatient R LEANN [facility] [id number] Univers 14:00:00 14:00:00 CHERRY amadoy o f [facility] 2019-12-02 2019-12-02 [facility] 1.2.840.114 [id number] Univers 13:25:06 13:40:06 Visit Cherry Hlil [employer] 350.1.13.10 ity [facility] 4.2.7.2.686 Abdifatah as MATERNAL [phone] Med ical & CHILD [address] [place] [address] 2019-12-01 2019-12-01 Telephone Leann [facility] 1.2.056.922 [id number] Univers 00:00:00 00:00:00 Roshunda R [employer] 350.1.13.10 ity of [facility] 4.2.7.2.686 Abdifatah as MATERNAL [phone] [facility] & CHILD [address] [place] [address] 2019-11-30 2019-11-30 Telephone [facility] 1.2.598.530 [id number] Univers 00:00:00 00:00:00 Alvareznda R [employer] 350.1.13.10 ity of [facility] 4.2.7.2.686 Abdifatah as MATERNAL [phone] [facility] & [address] 2019-11-04 2019-11-04 Office [facility] 1.2.840.114 [id number] Univers 14:03:07 14:46:23 Visit Cherry R [employer] 350.1.13.10 ity of [facility] 4.2.7.2.686 Abdifatah as MATERNAL [phone] [facility] & CHILD [address] [place] [address] 2019-11-04 2019-11-04 Outpatient [facility] [id number] Univers 13:45:00 13:45:00 LULÚNDA ity o f [facility] 2019-11-02 2019-11-02 Nurse CHRIS Israel 1.2.840.114 [id number] Univers 00:00:00 00:00:00 Triage Francie MARTINEZ 350.1.13.10 ity of [facility] 4.2.7.2.686 Abdifatah as [phone] [address] 2019-10-13 2019-10-13 [facility] [id number] Univers 11:00:00 11:00:00 LULÚNDA ity o f [facility] 2019-09-20 2019-09-20 Office [facility] 1.2.840.114 [id number] Univers 14:22:04 14:37:04 Visit Lulúchristy R [employer] 350.1.13.10 ity of [facility] 4.2.7.2.686 Abdifatah as MATERNAL [phone] [facility] & CHILD [address] [place] [address] 2019-09-20 2019-09-20 Outpatient [facility] [id number] Univers 13:45:00 13:45:00 ALVAREZNDA ity o f [facility] 2019-09-08 2019-09-08 Outpatient R [facility] [id number] Univers 09:30:00 09:30:00 ALVAREZNDA ity o f [facility] 2019-09-03 2019-09-03 Routine [facility] 1.2.484.541 [id number] Univers 15:07:52 15:51:46 Gilbert C [employer] 350.1.13.10 ity of Visit REGIONAL 4.2.7.2.686 Abdifatah as MATERNAL [phone] Med ical & CHILD [address] [place] [address] 2019-09-03 2019-09-03 Outpatient [facility] [id number] [facility] 14:45:00 14:45:00 GILBERT rashawn o pepe [facility] 2019-09-03 2019-09-03 Telephone [facility] 1.2.254.862 [id number] Univers 00:00:00 00:00:00 Rosveroniquenda R [employer] 350.1.13.10 ity of REGIONAL 4.2.7.2.686 Abdifatah as MATERNAL [phone] Med ical & CHILD [address] [place] [address] 2019-09-03 2019-09-03 Telephone [facility] 12.840.114 [id number] Univers 00:00:00 00:00:00 Gilbert C [employer] 350.1.13.10 ity of REGIONAL 4.2.7.2.686 Abdifatah as MATERNAL [phone] Med ical & CHILD [address] [place] [address] 2019 [address] [facility] 12.089.613 [id number] Univers 00:00:00 00:00:00 Roshunda R [employer] 350.1.13.10 ity of REGIONAL 4.2.7.2.686 Abdifatah as MATERNAL [phone] Med ical & CHILD [address] [place] [address] 2019-08-17 2019-08-17 Outpatient Liz [facility] [id number] Univers 13:15:00 13:15:00 ROSHUNDA ity o f [facility] 2019-08-17 2019-08-17 Telemedici Leann [facility] 1.2.840.114 [id number] Univers 11:02:12 11:17:12 ne Visit [place] [employer] 350.1.13.10 ity of REGIONAL 4.2.7.2.686 Abdifatah as MATERNAL [phone] [facility] ical & CHILD [address] [place] [address] 2019-08-17 2019-08-17 Orders Doctor CHRIS 1.2.840.114 [id number] Univers 00:00:00 00:00:00 Only Unassigned, JUAN 350.1.13.10 [place] of [place] [facility] 4.2.7.2.686 Abdifatah as [phone] [address] 2019-08-16 2019-08-16 Telephone Leann KYPABLO 1.2.658.882 [id number] Univers 00:00:00 00:00:00 Cherry Liz [employer] 350.1.13.10 ity of REGIONAL 4.2.7.2.686 Abdifatah as MATERNAL [phone] [facility] ical & CHILD [address] [place] [address] 2019-08-06 2019-08-06 1.2.840.1 1.2.840.114 [id number] Univers 00:00:00 00:00:00 Encounter 11708.1.1 350.1.13.10 [place] of 3[place]104.2[place][id number] 570 [facility] 2019-08-04 2019-08-04 1.2.840.1 1.2.840.114 [id number] Univers 00:00:00 00:00:00 Encounter 16666.1.1 350.1.13.10 it[place] of 3.104.2.7 [place].696 [place] .[id number] 570 [facility] 2019-08-03 2019-08-03 1.2.840.1 1.2.840.114 [id number] Univers 00:00:00 00:00:00 Encounter 05455.1.1 350.1.13.10 ity of 3.104.2.7 [place].2.696 [place] .[id number] [address]ica [address] 2019-07-29 2019-07-29 Telephone Jerry [facility] 1.2.840.114 [id number] Univers 00:00:00 00:00:00 Attending [employer] 350.1.13.10 ity of [facility] 4.2.7.2.686 Abdifatah as MATERNAL [phone] [facility] ical & CHILD [address] [place] [address] 2019-07-25 2019-07-28 Inpatient P TED MODI [facility] NATALI 1 [id number] Univers 13:33:00 14:53:00 TED MODI ity of [facility] 2019-07-25 2019-07-28 [facility] Teresa Guerrero 1.2.8 40.114 [id number] Univers 13:33:00 14:53:00 Encounter Ted Moid 350.1.13.10 ity of [facility] 4.2.7.2.686 Abdifatah as [id number] [facility] [address] 2019-07-27 2019-07-27 Outpatient [facility] [id number] Univers 08:15:00 08:15:00 CHERRY morocho o f [facility] 2019-07-25 2019-07-25 Orders Doctor PEREZ 1.2.840.114 [id number] Univers 00:00:00 00:00:00 Only Unassigned, JUAN 350.1.13.10 ity of [place] [facility] 4.2.7.2.686 Abdifatah as [phone] [facility] [address] 2019-07-15 2019-07-15 Telemedici [facility] 1.2.840.114 [id number] Univers 13:10:31 14:59:08 ne Visit Cherry R [employer] 350.1.13.10 ity of [facility] 4.2.7.2.686 Abdifatah as MATERNAL [phone] [facility] ical & CHILD [address] [place] [address] 2019-07-15 2019-07-15 Outpatient Liz [facility] [id number] Univers 13:30:00 13:30:00 CHERRY morocho o f [facility] 2019-07-15 2019-07-15 Telephone [facility] 1.2.331.255 [id number] Univers 00:00:00 00:00:00 Rosveroniquenda R [employer] 350.1.13.10 ity of [facility] 4.2.7.2.686 Abdifatah as MATERNAL [id number] [facility] & [address] 2019-06-30 2019-06-30 Outpatient R [facility] [id number] Univers 12:45:00 12:45:00 ALVAREZNDA ity o f [facility] 2019-06-29 2019-06-29 Routine [facility] 1.2.840.114 [id number] Univers 14:49:25 15:24:31 Alvareznda R [employer] 350.1.13.10 ity of Visit REGIONAL 4.2.7.2.686 Abdifatah as MATERNAL [id number] [address] 2019-06-29 2019-06-29 Outpatient R [facility] [id number] Univers 15:00:00 15:00:00 ALVAREZNDA ity o f [facility] 2019-06-26 2019-06-27 [facility] 1.2.840.114 [id number] Univers 22:23:00 00:10:00 Sharifa Chowdhury 350.1.13.10 ity of [place] 4.2.7.2.686 [place] [facility] [phone] [address] 2019-06-25 2019-06-25 [address] [facility] 1.2.362.053 [id number] Univers 00:00:00 00:00:00 Rosveroniquenda R [employer] 350.1.13.10 ity of [facility] 4.2.7.2.686 Abdifatah as MATERNAL [phone] [facility] & [address] 2019-06-18 2019-06-18 [facility] 1.2.840.114 [id number] Univers 20:22:52 21:46:00 Glo Chowdhury 350.1.13.10 ity of [place] 4.2.7.2.[address] [facility] [phone] 2019-06-16 2019-06-16 Routine [facility] 1.2.840.114 [id number] Univers 12:47:10 13:41:25 Roshunda R [employer] 350.1.13.10 ity of Visit [facility] 4.2.7.2.686 Abdifatah as MATERNAL [phone] [facility] & CHILD [address] [place] [address] 2019-06-16 2019-06-16 Outpatient R [facility] [id number] Univers 12:45:00 12:45:00 ROSHUNDA ity o f [facility] 2019-05-26 2019-05-26 Routine [facility] 1.2.840.114 [id number] Univers 10:18:18 12:58:33 Roshunda R [employer] 350.1.13.10 ity of Visit [facility] 4.2.7.2.686 Abdifatah as MATERNAL [phone] [facility] & [address] 2019-05-23 2019-05-23 Emergency [facility] [id number] Univers 18:18:07 21:18:00 ABHAY ity [facility] 2019-05-23 2019-05-23 Emergency [facility] 1.2.488.911 [id number] Univers 18:18:07 21:18:00 Abhay Samina Hockley 350.1.13.10 i ty of [place] 4.2.7.2.[address] [facility] [phone] [address] 2019-05-23 2019-05-23 Orders Doctor CHRIS 1.2.840.114 [id number] Univers 00:00:00 00:00:00 Only Unassigned, JUAN 350.1.13.10 ity of [place] [facility] 4.2.7.2.686 Abdifatah as [id number] [address] 2018-11-25 2018-11-25 Office [facility] 1.2.840.114 [id number] Univers 13:54:04 14:27:51 Visit Carmen Peraza 350.1.13.10 ity of Pediatric 4.2.7.2.686 [facility] [phone] [address] 2018-11-25 2018-11-25 Letter [facility] 1.2.840.114 [id number] Univers 00:00:00 00:00:00 (Out) Carmen Peraza 350.1.13.10 ity of Pediatric 4.2.7.2.686 Te [facility] [phone] [address] 2018-11-25 2018-11-25 Telephone [facility] 1.2.840.11 [id number] Univers 00:00:00 00:00:00 Carmen Peraza 350.1.13.10 ity of Pediatric 4.2.7.2.686 [facility] [phone] [address] 2018-11-25 2018-11-25 Orders Doctor CHRIS 1.2.840.114 [id number] Univers 00:00:00 00:00:00 Only Unassigned, JUAN 350.1.13.10 ity of [place] [facility] 4.2.7.2.686 Abdifatah as [phone] [address] Results Test Description Test Time Test Comments Results Result Comments Source POCT MOLECULAR STREP 2022-01-05 21:17:20 Test Item Value Reference Range Interpretation Comme nts POCT Molecular Strep (test code = 41131-5) Negative Negative Lab Interpretation (test code = 92789-2) [facility] by Automated [id number] 00:00:00 Test Item Value Reference Range Interpretation Comments WBC (test code = WBC) 10.2 10 3.7-12.0 RBC (test code = RBC) 4.05 10 3.60-5.50 HGB (test code = HGB) 12.1 g/dL 11.5-15.6 HCT (test code = HCT) 36.4 % 34.5-46.5 MCV (test code = MCV) 89.8 um 80.0-102.0 MCH (test code = MCH) 29.9 pg 25.0-34.1 MCHC (test code = MCHC) 33.3 g/dL 29.0-35.0 RDW (test code = RDW) 13.7 % 10.9-16.9 plt (test code = plt) 495 10 136-392 H MPV (test code = MPV) 7.7 um 7.4-11.1 gran % (test code = gran %) 67.6 % 36.0-78.0 lymph % (test code = lymph %) 23.8 % 12.0-48.0 mono % (test code = mono %) 5.3 % 0.0-13.0 eos % (test code = eos %) 2 % 0-8 baso % (test code = baso %) 1 % 0-2 gran # (test code = gran #) 6.9 10 1.2-6.8 H lymph # (test code = lymph #) 2.4 10 1.2-3.2 mono # (test code = mono #) 0.5 10 0.3-0.8 eos # (test code = eos #) 0.2 10 0.0-0.2 baso # (test code = baso #) 0.1 10 0.0-0.2 [facility] [Units/volume] in Serum or [id number] 00:00:00 Test Item Value Reference Range Interpretation Comments TSH (test code = TSH) 0.958 uIU/mL 0.178-4.530 [facility] Medical[facility]inalysis complete panel - [id number] 15:09:00 Test Item Value Reference Range Interpretation Comments Leukocytes (test code = Leukocytes) Negative Nitrite (test code = Nitrite) Negative Urobilinogen (test code = 0.2 Urobilinogen) Protein (test code = Protein) Trace PH (test code = PH) 7.5 Blood (test code = Blood) Negative Specific [place] (test code = 1.020 Specific [place]) Ketone (test code = Ketone) Negative Bilirubin (test code = Bilirubin) Negative Glucose (test code = Glucose) Negative Appearance (test code = Appearance) Clear Color (test code = Color) Yellow [facility] MedicalUrinalysis complete panel - [id number] 11:41:00 Test Item Value Reference Range Interpretation Comments Leukocytes (test code = Negative Leukocytes) Nitrite (test code = Negative Nitrite) Urobilinogen (test code = 1 Urobilinogen) Protein (test code = Trace Protein) PH (test code = PH) 6.5 Blood (test code = Blood) Non-Hemolyzed: Trace Specific [place] (test 1.030 code = Specific [place]) Ketone (test code = Negative Ketone) Bilirubin (test code = Negative Bilirubin) Glucose (test code = Negative Glucose) Appearance (test code = Slightly Cloudy Appearance) Color (test code = Color) Dark Yellow [facility] MedicalPOCT URINALYSIS W/O SPECIFIC [id number] 20:21:00 Test Item Value Reference Range Interpretation Comments POCT PH U (test code = 3254) 8 mg/dl 5-8 POCT U LEUK EST (test code = Trace Negative - Negative 3263) POCT U NIT (test code = 3262) Neg Negative - Negative POCT U PROT (test code = 3259) 2+ Negative - Negative POCT U GLU (test code = 3256) Neg Negative - Negative POCT U KETONE (test code = 3258) None Negative - Negative POCT U BLD (test code = 3257) Neg Negative - Negative [facility] STREPTOCOCCUS BY [id number] 15:28:00 Test Item Value Reference Range Interpretation Comments Group B Streptococcus by PCR (test Negative Negative code = 36686-6) Lab Interpretation (test code = Normal 15483-0) [facility] - SYPHILIS [id number] 13:34:00 Test Item Value Reference Range Interpretation Comments Syphilis IgG/IgM (test Non-reactive Non-reactive code = 07457-6) MATTHEW (test code = MATTHEW) Non-reactive - No serologic evidence of T. pallidum infection. Cannot exclude incubating or early syphilis. Submit a second specimen in 2-4 weeks if syphilis is clinically suspected. Equivocal - Further testing to follow. Reactive - Further testing to follow. Lab Interpretation (test Normal code = 41315-5) [facility] [id number] 11:54:00 Test Item Value Reference Range Interpretation Comments URINE CULTURE (test > 100,000 CFU/mL mixed code = 630-4) aerobic organisms - suggests endogenous microbial contamination [facility] WITH [id number] 09:43:00 Test Item Value Reference Range Interpretation Comments WBC (test code = See_Comment H [Automated 0790-2) message] The sy stem which generated this result transmitted reference range : 4.50 - 13.50 10*3/?L. The reference range was not used to interpret this result as normal/abnormal . RBC (test code = See_Comment L [Automated 789-8) message] The sy stem which generated this result transmitted reference range : 4.10 - 5.10 10*6/?L. The reference range was not used to interpret this result as normal/abnormal . HGB (test code = 9.0 g/dL 12-16 L 718-7) HCT (test code = 28.1 % 36-45 L 4544-3) MCV (test code = 84.9 fL 78-95 787-2) MCH (test code = 27.2 pg 26-32 785-6) MCHC (test code = 32.0 g/dL 32-36 786-4) RDW-SD (test code = 46.4 fL 38.5-49 09031-4) RDW-CV (test code = 14.9 % 11.5-14 H 788-0) PLT (test code = See_Comment H [Automated 777-3) message] The sy stem which generated this result transmitted reference range : 135 - 361 10*3/ ?L. The reference r guy was not used to interpret this result as normal/abnormal . MPV (test code = 9.9 fL 9.4-13.3 59066-4) NRBC/100 WBC (test See_Comment [Automat ed code = [id number]) message] The system which generated this result transmitted reference range : 0.0 - 10.0 /100 WBCs. The refer ence range was not u sed to interpret th is result as normal/abnormal . NRBC x10^3 (test code <0.01 See_Comment [Auto mated = [id number]) message] The s ystem which generated this result transmitted reference range : 10*3/?L. The reference range was not used to interpret this result as normal/abnormal . GRAN MAT (NEUT) % 71.4 % (test code = 770-8) IMM GRAN % (test code 0.70 % = [id number]) LYMPH % (test code = 19.1 % 736-9) MONO % (test code = 7.4 % 5905-5) EOS % (test code = 1.0 % 713-8) BASO % (test code = 0.4 % 706-2) GRAN MAT x10^3(ANC) 9.83 10*3/uL 1.5-10.3 (test code = [id number]) IMM GRAN x10^3 (test 0.09 10*3/uL 0-0.06 H code = [id number]) LYMPH x10^3 (test code 2.62 10*3/uL 0.7-7.4 = 731-0) MONO x10^3 (test code 1.01 10*3/uL 0-0.5 H = 742-7) EOS x10^3 (test code = 0.14 10*3/uL 0-0.4 711-2) BASO x10^3 (test code 0.05 10*3/uL 0-0.1 = 704-7) Lab Interpretation Abnormal (test code = 46022-3) [facility] [id number] 21:35:19 Test Item Value Reference Range Interpretation Comments ABO & RH (test code A POSITIVE Performe d at [facility] = 20) Laboratory Serv [facility]3 [address] [facility] [address]Bcyc Free: [phone] A No. [id number] IAT (test code = Negative Performed a t [facility] 1185) Laboratory Serv [facility] [address] [facility] s [address]Kwmh Free: [phone] A No. [id number] [facility] IMMUNE [id number] 21:04:00 Test Item Value Reference Range Interpretation Comments RHIG CANDIDATE? No- see comment Patient i s not a (test code = candidate for R hIg- 5055) Patient is Rh Positive.Perfor med at [facility] Laboratory Services - [facility] Blood [address] [place], [place] [address]Ughh Free: [phone] A No. [id number] [facility] [id number] 15:51:00 Test Item Value Reference Range Interpretation Comments VENOUS BASE EXCESS, CORD mEq/L (test code = 3955220372) VENOUS PH, CORD (test 7.25-7.45 code = 9915960792) VENOUS PC02, CORD (test See_Comment H [Au tomated message] code = 8325493122) The syste m which generated this result transmitted ref erence range: 27 - 49 mmHg. The reference r guy was not used to interpret this result as normal/abnor mal. VENOUS PO2, CORD (test See_Comment L [Aut omated message] code = 7166574989) The syste m which generated this result transmitted ref erence range: 17 - 41 mmHg. The reference r guy was not used to interpret this result as normal/abnor mal. VENOUS BICARBONATE, CORD See_Comment [A utomated message] (test code = 6965187644) The system which generated this result transmitted ref erence range: 12 - 29 mEq/L. The reference r guy was not used to interpret this result as normal/abnor mal. Lab Interpretation (test Abnormal code = 04111-5) [facility] [id number] 15:45:00 Test Item Value Reference Range Interpretation Comments BASE EXCESS, CORD mEq/L (test code = 1710169564) AC PH, CORD (BEAKER) 7.18-7.38 (test code = 8825624990) PC02, CORD (test code See_Comment [Auto mated message] The = 2545024498) system which g enerated this result transmit elisabeth reference range : 32 - 66 mmHg. The refer ence range was not used to interpret this result as normal/abnormal . PO2, CORD (test code See_Comment [Autom ated message] The = 0863905952) system which g enerated this result transmit elisabeth reference range : 10 - 30 mmHg. The refer ence range was not used to interpret this result as normal/abnormal . BICARBONATE, CORD See_Comment [Automate d message] The (test code = system which ge nerated this 8389928244) result transmit elisabeth reference range : 17 - 27 mEq/L. The refe rence range was not used to interpret this result as normal/abnormal . [facility] OR OLYA DOMINGUEZ - [id number] 08:22:00 Test Item Value Reference Range Interpretation Comments RPR (Qualitative) (test code = Nonreactive Nonreactive 73137-5) Lab Interpretation (test code = Normal 41752-0) [facility] Ratio Urine [id number] 00:50:00 Test Item Value Reference Range Interpretation Comments T. PROT U (test >1000 mg/dL code = 2888-6) CREAT U (test code 149.6 mg/dL = 0660978627) Protein/Creatinine Unable to calculate Ratio Urine (test because, e ither urine code = 1883702911) total pro tein, urine creatinine, or both are greater than th e linearity of th e analyzer. [facility] HospitalHEPATITIS B SURFACE [id number] 23:04:00 Test Item Value Reference Range Interpretation Comments HBsAg Semi-Quantitative (test code = Negative Negative 5195-3) [facility]HIV 1/2 AG-AB WITH [id number] 22:50:00 Test Item Value Reference Range Interpretation Comments HIV Negative Negative Semi-quantitative (test code = 38762-7) MATTHEW (test code = Non-reactive for HIV-1 MATTHEW) antigen and HIV-1/HIV-2 antibodies. ?No laboratory evidence of HIV infection. ?Repeat in 2-4 weeks if acute HIV infection is suspected. [facility] HospitalUS PELVIS > 14 [id number] 21:56:331. Single live intrauterine with size equals dates. 2. Normal biophysical profile. RL: 3901AFC: [id number] End of report EXAM: US PELVIS > 14 WEEKS, US BIOPHYSICAL PROFILE Ordering Physician: ?TERESA ?DICLEMENTE HISTORY: Abdominal pain. Hypertension. Possible preeclampsia. COMPARISON: none Permanently recorded sonographic images were stored in the PACs system. CHUCK: 2019 Transabdominal imaging was performed. FINDINGS:There is a single live intrauterine gestation in cephalic position withfundal placenta.The placenta appears unremarkable. Cervical length ispoorly assessed due to position. heart rate is 153 beats perminute. survey not performed as part of this examination. Fetus asvisualized appears grossly unremarkable. ?The following biometric data wereobtained: BPD ?34 weeks 1 dayHC ? ?34 weeks 1 dayAC ? ?32 weeks 4 daysFL ? ?35 weeks 4 daysEFW [address] by dates: 34 weeks 3 daysAg e by US: ? ? 34 weeks 0 days Biophysical profile was also performed. There is a normal amount ofamniotic fluid with JIM of 11.3 cm. 2 points given each for fetalbreathing, movement, tone, and antibiotic fluid volume for a total of 8/8. [facility], Radiant Results Inft User - 07/26/2019 2:41 PM CDTEXAM: US PELVIS > 14 WEEKS, US BIOPHYSICAL PROFILEOrdering Physician: TERESA GUERRERO HISTORY: Abdominal pain. Hypertension. Possible preeclampsia.COMPARISON: nonePermanently recorded sonographic images were stored in the PACs system. CHUCK: 2019Transabdominal imaging was performed. FINDI NGS:There is a single live intrauterine gestation in cephalic position withfundal placenta. The placenta appears unremarkable. Cervical length ispoorly assessed due to position. heart rate is 153 beats perminute. survey not performed as part of this examination. Fetus asvisualized appears grossly unremarkable. The following biometric data wereobtained:BPD 34 weeks 1 dayHC 34 weeks 1dayAC 32 weeks 4 daysFL 35 weeks 4 daysEFW [address] by dates: 34 weeks 3 daysAge by US: 34 weeks 0 daysBiophysical profile was also performed. There is a normal amount ofamniotic fluid with JIM of 11.3 cm. 2 points given each for fetalbreathing, movement, tone, and antibiotic fluid volume for a total of 11/19.IMPRESSION1. Single live intrauterine with size equals dates.2. Normal biophysical profile.RL: 3901AFC: [id number] of report [facility] US BIOPHYSICAL [id number] 21:55:081. Single live intrauterine with size equals dates. 2. Normal biophysical profile. RL: 3901AFC: [id number] End of report EXAM: US PELVIS > 14 WEEKS, US BIOPHYSICAL PROFILE Ordering Physician: ?TERESA JACKMAN HISTORY: Abdominal pain. Hypertension. Possible preeclampsia. COMPARISON: none Permanently recorded sonographic images were stored in the PACs system. CHUCK: 2019 Transabdominal imaging was performed. FINDINGS:There is a single live intrauterine gestation in cephalic position withfundal placenta.The placenta appears unremarkable. Cervical length ispoorly assessed due to position. heart rate is 153 beats perminute. survey not performed as part of this examination. Fetus asvisua lized appears grossly unremarkable. ?The following biometric data wereobtained: BPD ?34 weeks 1 dayHC ? ?34 weeks 1 dayAC ? ?32 weeks 4 daysFL ? ?35 weeks 4 daysEFW [address] by dates: 34 weeks 3 daysAge by US: ? ? 34 weeks 0 days Biophysical profile was also performed. There is a normal amount ofamniotic fluid with JIM of 11.3 cm. 2 points given each for fetalbreathing, movement, tone, and antibiotic fluid volume for a total of 11/19. [facility], Radiant Results Inft User - 07/25/2019 4:56 PM CDTEXAM: US PELVIS > 14 WEEKS, US BIOPHYSICAL PROFILEOrdering Physician: TERESA GUERRERO HISTORY: Abdominal pain. Hypertension. Possible preeclampsia.COMPARISON: nonePermanently recorded sonographic images were stored in the PACs system. CHUCK: 2019Transabdominal imaging was performed. FINDINGS:There is a single live intrauterine gestation in cephalic position withfundal placenta. The placenta appears unremarkable. Cervical length ispoorly assessed due to position. heart rate is 153 beats perminute. survey not performed as part of this examination. Fetus asvisualized appears grossly unremarkable. The following biometric data wereobtained:BPD 34 weeks 1 dayHC 34 weeks 1dayAC 32 weeks 4 daysFL 35 weeks 4 daysEFW [address] by dates: 34 weeks 3 daysAge by US: 34 weeks 0 daysBiophysical profile was also performed. There is a normal amount ofamniotic fluid with JIM of 11.3 cm. 2 points given each for fetalbreathing, movement, tone, and antibiotic fluid volume for a totalof 11/19.IMPRESSION1. Single live intrauterine with size equals dates.2. Normal biophysical profile.RL: 3901AFC: 57735Suf of report [facility]CH[facility] AliceType and Screen - ONCE [id number] 20:25:29 Test Item Value Reference Range Interpretation Comments ABO & RH (test code A Positive Performe d at [facility] = 20) Laboratory Serv [facility] Blood Bank[address] [place], [place] [address]Toll Free: [phone] A No. [id number] IAT (test code = Negative Performed a t [facility] 1185) Laboratory Serv [facility] Blood Bank[address] [place], [place] [address]Toll Free: [phone] A No. [id number] [facility] HospitalAlanine Amino Transferase (SGPT)2019-07-25 20:14:00 Test Item Value Reference Range Interpretation Comments ALTv (test code = 1742-6) 22 U/L 5-35 Lab Interpretation (test code = Normal 61732-2) [facility] HospitalUric Acid [id number] 20:13:00 Test Item Value Reference Range Interpretation Comments URIC ACID (test code = 0558274716) 4.3 mg/dL 2.9-6 Lab Interpretation (test code = Normal 38456-6) [facility] [id number] 20:13:00 Test Item Value Reference Range Interpretation Comments CREATININE (test code = 0.39 mg/dL 0.5-1.04 L 6595501089) eGFR Calculation mL/min/1.73m2 (Non-) (test code = 7120877961) eGFR Calculation mL/min/1.73m2 () (test code = 9717275337) MATTHEW (test code = MATTHEW) Association of Glomerular Filtration Rate (GFR) and Staging of Kidney Disease* + --+ --+ ------+| GFR (mL/min/1.73 m2) ?| With Kidney Damage ?| ?Without Kidney Damage+ --------+ --------+ +| ?>90 ?| ?Stage one ?| ? Normal ?+ ---+ ---+ -------+| ?60-89 ?| ?Stage two ?| ? Decreased GFR ? + --+ --+ ------+| ?30-59 ?| ?Stage three ?| ? Stage three ? + --+ --+ ------+| ?15-29 ?| ?Stage four ? | ? Stage four ?+ ---+ ---+ -------+| ?<15 (or dialysis) ? ?| ?Stage five ? | ? Stage five ?+ ---+ ---+ -------+ *Each stage assumes the associated GFR level has been in effect for at least three months. ?Stages 1 to 5, with or without kidney disease, indicate chronic kidney disease. Notes: Determination of stages one and two (with eGFR >59mL/min/1.73 m2) requires estimation of kidney damage for at least three months as defined by structural or functional abnormalities of the kidney, manifested by either:Pathological abnormalities or Markers of kidney damage (including abnormalities in the composition of the blood or urine or abnormalities in imaging tests). Lab Interpretation Abnormal (test code = 53590-1) [facility] HospitalSGOT (Asparate Amino Transfer)2019-07-25 20:13:00 Test Item Value Reference Range Interpretation Comments AST(SGOT) (test code = 0829143985) 37 U/L 13-40 Lab Interpretation (test code = Normal 35778-4) [facility] HospitalLactate [id number] 20:13:00 Test Item Value Reference Range Interpretation Comments LDH (test code = 5144435982) 556 U/L 300-600 Lab Interpretation (test code = Normal 19572-8) [facility] HospitalUrinalysis2020-04-12 20:12:00 Test Item Value Reference Range Interpretation Comments APPEARANCE (test code = Hazy Clear A 8118274686) COLOR (test code = Yellow Yellow 3849421485) PH (test code = 4.8-8.0 1736577533) SP GRAVITY (test code = 1.003-1.030 4163977970) GLU U QUAL (test code = Normal Normal 0961167853) BLOOD (test code = Negative Negative 1061940923) KETONES (test code = Negative Negative 0538067276) PROTEIN (test code = 100 mg/dL Negative A 2887-8) UROBILIN (test code = Normal Normal 7384537343) BILIRUBIN (test code = Negative Negative 4698059941) NITRITE (test code = Negative Negative 9296226272) LEUK VASQUEZ (test code = Negative Negative 5154462615) RBC/HPF (test code = See_Comment [Autom ated message] 5568188596) The system [employer] generated this result transmit elisabeth reference range : 0 - 3 HPF. The refe rence range was not u sed to interpret th is result as normal/abnormal . WBC/HPF (test code = See_Comment H [Autom ated message] 7629790117) The system [employer] generated this result transmit elisabeth reference range : 0 - 5 HPF. The refe rence range was not u sed to interpret th is result as normal/abnormal . BACTERIA (test code = Many Negative A 1731575065) MUCOUS (test code = Slight Negative LPF A 8815968879) SQ EPITH (test code = HPF 2183418519) HYAL CAST (test code = See_Comment H [Aut omated message] 4745024245) The system [employer] generated this result transmit elisabeth reference range : <=2 LPF. The refere nce range was not u sed to interpret th is result as normal/abnormal . TRANS EPI (test code = See_Comment [Aut omated message] 2098454387) The system [employer] generated this result transmit elisabeth reference range : <=1 HPF. The refere nce range was not u sed to interpret th is result as normal/abnormal . ROMELIA EPITH (test code = See_Comment [Aut omated message] 5782190751) The system [employer] generated this result transmit elisabeth reference range : <=1 HPF. The refere nce range was not u sed to interpret th is result as normal/abnormal . WBC CAST (test code = See_Comment H [Auto mated message] 8877708374) The system [employer] generated this result transmit elisabeth reference range : <=1 LPF. The refere nce range was not u sed to interpret th is result as normal/abnormal . GRAN CASTS (test code = See_Comment [Au tomated message] 2118566389) The system [employer] generated this result transmit elisabeth reference range : <=1 LPF. The refere nce range was not u sed to interpret th is result as normal/abnormal . Lab Interpretation (test Abnormal code = 31109-3) [facility] WITH [id number] 19:56:00 Test Item Value Reference Range Interpretation Comments WBC (test code = See_Comment [Automated 6690-2) message] The sy stem which generated this result transmitted reference range : 4.50 - 13.50 10*3/?L. The reference range was not used to interpret this result as normal/abnormal . RBC (test code = See_Comment L [Automated 789-8) message] The sy stem which generated this result transmitted reference range : 4.10 - 5.10 10*6/?L. The reference range was not used to interpret this result as normal/abnormal . HGB (test code = 9.9 g/dL 12-16 L 718-7) HCT (test code = 30.3 % 36-45 L 4544-3) MCV (test code = 83.9 fL 78-95 787-2) MCH (test code = 27.4 pg 26-32 785-6) MCHC (test code = 32.7 g/dL 32-36 786-4) RDW-SD (test code = 42.6 fL 38.5-49 65931-9) RDW-CV (test code = 13.9 % 11.5-14 788-0) PLT (test code = See_Comment H [Automated 777-3) message] The sy stem which generated this result transmitted reference range : 135 - 361 10*3/ ?L. The reference r guy was not used to interpret this result as normal/abnormal . MPV (test code = 10.0 fL 9.4-13.3 67750-1) NRBC/100 WBC (test See_Comment [Automat ed code = 2728855630) message] The system which generated this result transmitted reference range : 0.0 - 10.0 /100 WBCs. The refer ence range was not u sed to interpret th is result as normal/abnormal . NRBC x10^3 (test code <0.01 See_Comment [Auto mated = 2311602694) message] The s ystem which generated this result transmitted reference range : 10*3/?L. The reference range was not used to interpret this result as normal/abnormal . GRAN MAT (NEUT) % 69.6 % (test code = 770-8) IMM GRAN % (test code 0.50 % = 2852769542) LYMPH % (test code = 18.8 % 736-9) MONO % (test code = 8.1 % 5905-5) EOS % (test code = 2.6 % 713-8) BASO % (test code = 0.4 % 706-2) GRAN MAT x10^3(ANC) 7.80 10*3/uL 1.5-10.3 (test code = 3338580680) IMM GRAN x10^3 (test 0.06 10*3/uL 0-0.06 code = 5416334800) LYMPH x10^3 (test code 2.11 10*3/uL 0.7-7.4 = 731-0) MONO x10^3 (test code 0.91 10*3/uL 0-0.5 H = 742-7) EOS x10^3 (test code = 0.29 10*3/uL 0-0.4 711-2) BASO x10^3 (test code 0.05 10*3/uL 0-0.1 = 704-7) Lab Interpretation Abnormal (test code = 21721-0) [facility] HospitalCORON[facility] COVID-19 [id number] 19:49:00 Test Item Value Reference Range Interpretation Comments SARS-CoV-2 (test code = Not Detected Not Detected 53434-1) MATTHEW (test code = MATTHEW) ID NOW COVID-19 Assay is an isothermal nucleic acid amplification test intended for the qualitative detection of nucleic acid from SARS-CoV-2 viral RNA in nasopharyngeal (POLITICAL ANTHROPOLOGIST) specimens. It is used under Emergency Use Authorization (EUA) by FDA. The limit of detection (LOD) of the assay is 125 Genome Equivalents/mL. A positive result is indicative of the presence of SARS-CoV-2 RNA. ?Clinical correlation with patient history and other diagnostic information is necessary to determine patient infection status. A negative (Not Detected) result does not preclude SARS-CoV-2 infection. Clinical correlation with patient history and other diagnostic information should be used in patient management decisions. Invalid: Please collect a new specimen for repeat patient testing if clinically indicated. Lab Interpretation Normal (test code = 17652-6) [facility] URINALYSIS W/O SPECIFIC [id number] 20:03:00 Test Item Value Reference Range Interpretation Comments POCT PH U (test code = 3254) 7 mg/dl 5-8 POCT U LEUK EST (test code = 2+ Negative - Negative 3263) POCT U NIT (test code = 3262) neg Negative - Negative POCT U PROT (test code = 3259) 1+ Negative - Negative POCT U GLU (test code = 3256) neg Negative - Negative POCT U KETONE (test code = 3258) neg Negative - Negative POCT U BLD (test code = 3257) neg Negative - Negative Lab Interpretation (test code = Abnormal 72705-3) [facility] URINALYSIS W/O SPECIFIC [id number] 20:03:00 Test Item Value Reference Range Interpretation Comments POCT PH U (test code = 3254) 7 mg/dl 5-8 POCT U LEUK EST (test code = 2+ Negative - Negative 3263) POCT U NIT (test code = 3262) neg Negative - Negative POCT U PROT (test code = 3259) 1+ Negative - Negative POCT U GLU (test code = 3256) neg Negative - Negative POCT U KETONE (test code = 3258) neg Negative - Negative POCT U BLD (test code = 3257) neg Negative - Negative Lab Interpretation (test code = Abnormal 80964-1) [facility] HospitalAD,CLC OR LCC ONLY - INFLUENZA A & B DIRECT [id number] 03:20:00 Test Item Value Reference Range Interpretation Comments Influenza A (test code = 37895-4) Negative Negative Influenza B (test code = 34899-3) Negative Negative Lab Interpretation (test code = Normal 92745-9) [facility] URINALYSIS GLUCOSE & PROTEIN 2019-05-26 16:42:00 Test Item Value Reference Range Interpretation Comments POCT U PROT (test code = 3259) trace Negative - Negative POCT U GLU (test code = 3256) neg Negative - Negative Lab Interpretation (test code = Abnormal 49309-5) [facility] URINALYSIS W/O SPECIFIC [id number] 16:42:00 Test Item Value Reference Range Interpretation Comments POCT PH U (test code = 3254) 7 mg/dl 5-8 POCT U LEUK EST (test code = 1+ Negative - Negative 3263) POCT U NIT (test code = 3262) neg Negative - Negative POCT U PROT (test code = 3259) trace Negative - Negative POCT U GLU (test code = 3256) neg Negative - Negative POCT U KETONE (test code = 3258) neg Negative - Negative POCT U BLD (test code = 3257) trace Negative - Negative Lab Interpretation (test code = Abnormal 90981-8) [facility] URINALYSIS GLUCOSE & PROTEIN 2019-05-26 16:42:00 Test Item Value Reference Range Interpretation Comments POCT U PROT (test code = 3259) trace Negative - Negative POCT U GLU (test code = 3256) neg Negative - Negative Lab Interpretation (test code = Abnormal 02555-7) [facility] URINALYSIS W/O SPECIFIC [id number] 16:42:00 Test Item Value Reference Range Interpretation Comments POCT PH U (test code = 3254) 7 mg/dl 5-8 POCT U LEUK EST (test code = 1+ Negative - Negative 3263) POCT U NIT (test code = 3262) neg Negative - Negative POCT U PROT (test code = 3259) trace Negative - Negative POCT U GLU (test code = 3256) neg Negative - Negative POCT U KETONE (test code = 3258) neg Negative - Negative POCT U BLD (test code = 3257) trace Negative - Negative Lab Interpretation (test code = Abnormal 07042-7) [facility] URINALYSIS GLUCOSE & PROTEIN 2019-05-26 16:42:00 Test Item Value Reference Range Interpretation Comments POCT U PROT (test code = 3259) trace Negative - Negative POCT U GLU (test code = 3256) neg Negative - Negative Lab Interpretation (test code = Abnormal 96295-0) [facility] URINALYSIS W/O SPECIFIC [id number] 16:42:00 Test Item Value Reference Range Interpretation Comments POCT PH U (test code = 3254) 7 mg/dl 5-8 POCT U LEUK EST (test code = 1+ Negative - Negative 3263) POCT U NIT (test code = 3262) neg Negative - Negative POCT U PROT (test code = 3259) trace Negative - Negative POCT U GLU (test code = 3256) neg Negative - Negative POCT U KETONE (test code = 3258) neg Negative - Negative POCT U BLD (test code = 3257) trace Negative - Negative Lab Interpretation (test code = Abnormal 57587-1) [facility] URINALYSIS GLUCOSE & PROTEIN 2019-05-26 16:42:00 Test Item Value Reference Range Interpretation Comments POCT U PROT (test code = 3259) trace Negative - Negative POCT U GLU (test code = 3256) neg Negative - Negative Lab Interpretation (test code = Abnormal 22428-3) [facility] URINALYSIS W/O SPECIFIC [id number] 16:42:00 Test Item Value Reference Range Interpretation Comments POCT PH U (test code = 3254) 7 mg/dl 5-8 POCT U LEUK EST (test code = 1+ Negative - Negative 3263) POCT U NIT (test code = 3262) neg Negative - Negative POCT U PROT (test code = 3259) trace Negative - Negative POCT U GLU (test code = 3256) neg Negative - Negative POCT U KETONE (test code = 3258) neg Negative - Negative POCT U BLD (test code = 3257) trace Negative - Negative Lab Interpretation (test code = Abnormal 13976-0) [facility] [place]. METABOLIC PANEL (21240)2019-05-24 01:58:00 Test Item Value Reference Range Interpretation Comments NA (test code = 138 mmol/L 135-145 6102791417) K (test code = 3.2 mmol/L 3.5-5 L 8511363872) CL (test code = 106 mmol/L 98-108 4919448384) CO2 TOTAL (test code = 23 mmol/L 23-31 4294105570) AGAP (test code = 2-16 2747391478) BUN (test code = 3 mg/dL 7-23 L 1463472210) GLUCOSE (test code = 89 mg/dL 70-110 2785198708) CREATININE (test code = 0.31 mg/dL 0.5-1.04 L 5671094808) TOTAL BILI (test code = <0.1 0.1-1.1 L 4005020908) CALCIUM (test code = 8.9 mg/dL 8.6-10.6 2542646205) T PROTEIN (test code = 6.7 g/dL 6.3-8.2 8653024526) ALBUMIN (test code = 3.8 g/dL 3.5-5 9066607206) ALK PHOS (test code = 98 U/L 34-122 8998069577) ALTv (test code = 12 U/L 5-35 1742-6) AST(SGOT) (test code = 22 U/L 13-40 9018321194) eGFR Calculation mL/min/1.73m2 (Non-) (test code = 8819906860) eGFR Calculation mL/min/1.73m2 () (test code = 3190643989) MATTHEW (test code = MATTHEW) Association of Glomerular Filtration Rate (GFR) and Staging of Kidney Disease* + --+ --+ ------+| GFR (mL/min/1.73 m2) ?| With Kidney Damage ?| ?Without Kidney Damage+ --------+ --------+ +| ?>90 ?| ?Stage one ?| ? Normal ?+ ---+ ---+ -------+| ?60-89 ?| ?Stage two ?| ? Decreased GFR ? + --+ --+ ------+| ?30-59 ?| ?Stage three ?| ? Stage three ? + --+ --+ ------+| ?15-29 ?| ?Stage four ? | ? Stage four ?+ ---+ ---+ -------+| ?<15 (or dialysis) ? ?| ?Stage five ? | ? Stage five ?+ ---+ ---+ -------+ *Each stage assumes the associated GFR level has been in effect for at least three months. ?Stages 1 to 5, with or without kidney disease, indicate chronic kidney disease. Notes: Determination of stages one and two (with eGFR >59mL/min/1.73 m2) requires estimation of kidney damage for at least three months as defined by structural or functional abnormalities of the kidney, manifested by either:Pathological abnormalities or Markers of kidney damage (including abnormalities in the composition of the blood or urine or abnormalities in imaging tests). Lab Interpretation Abnormal (test code = 57558-0) [facility] 01:55:00 Test Item Value Reference Range Interpretation Comments APPEARANCE (test code = Cloudy Clear A [id number]) COLOR (test code = Yellow Yellow 8066391470) PH (test code = 4.8-8.0 9970901639) SP GRAVITY (test code = 1.003-1.030 0453093528) GLU U QUAL (test code = Normal Normal 4202522656) BLOOD (test code = Negative Negative 9855700577) KETONES (test code = Negative Negative 0216033997) PROTEIN (test code = Negative Negative 2887-8) UROBILIN (test code = 2.0 mg/dL Normal A 3436406875) BILIRUBIN (test code = Negative Negative 8658812719) NITRITE (test code = Negative Negative 4740084535) LEUK VASQUEZ (test code = 500/uL Negative A 4478920568) RBC/HPF (test code = See_Comment H [Autom ated message] 5446979300) The system [employer] generated this result transmit elisabeth reference range : 0 - 3 HPF. The refe rence range was not u sed to interpret th is result as normal/abnormal . WBC/HPF (test code = See_Comment H [Autom ated message] 3396448854) The system [employer] generated this result transmit elisabeth reference range : 0 - 5 HPF. The refe rence range was not u sed to interpret th is result as normal/abnormal . BACTERIA (test code = Many Negative A 9485684774) MUCOUS (test code = Moderate Negative LPF A 7495513858) SQ EPITH (test code = HPF 5311218172) TRANS EPI (test code = <1 See_Comment [Aut omated message] 4575257915) The system [employer] generated this result transmit elisabeth reference range : <=1 HPF. The refere nce range was not u sed to interpret th is result as normal/abnormal . ROMELIA EPITH (test code = <1 See_Comment [Aut omated message] 5530917792) The system [employer] generated this result transmit elisabeth reference range : <=1 HPF. The refere nce range was not u sed to interpret th is result as normal/abnormal . Lab Interpretation (test Abnormal code = 67712-2) [facility] WITH [id number] 01:28:00 Test Item Value Reference Range Interpretation Comments WBC (test code = See_Comment [Automated 6690-2) message] The sy stem which generated this result transmitted reference range : 4.50 - 13.50 10*3/?L. The reference range was not used to interpret this result as normal/abnormal . RBC (test code = See_Comment L [Automated 789-8) message] The sy stem which generated this result transmitted reference range : 4.10 - 5.10 10*6/?L. The reference range was not used to interpret this result as normal/abnormal . HGB (test code = 10.8 g/dL 12-16 L 718-7) HCT (test code = 32.9 % 36-45 L 4544-3) MCV (test code = 88.7 fL 78-95 787-2) MCH (test code = 29.1 pg 26-32 785-6) MCHC (test code = 32.8 g/dL 32-36 786-4) RDW-SD (test code = 38.2 fL 38.5-49 L 09498-2) RDW-CV (test code = 11.9 % 11.5-14 788-0) PLT (test code = See_Comment [Automated 777-3) message] The sy stem which generated this result transmitted reference range : 135 - 361 10*3/ ?L. The reference r guy was not used to interpret this result as normal/abnormal . MPV (test code = 9.8 fL 9.4-13.3 26694-6) NRBC/100 WBC (test See_Comment [Automat ed code = 7685036831) message] The system which generated this result transmitted reference range : 0.0 - 10.0 /100 WBCs. The refer ence range was not u sed to interpret th is result as normal/abnormal . NRBC x10^3 (test code <0.01 See_Comment [Auto mated = 6123929625) message] The s ystem which generated this result transmitted reference range : 10*3/?L. The reference range was not used to interpret this result as normal/abnormal . GRAN MAT (NEUT) % 65.5 % (test code = 770-8) IMM GRAN % (test code 0.50 % = 6231182974) LYMPH % (test code = 23.4 % 736-9) MONO % (test code = 7.4 % 5905-5) EOS % (test code = 2.7 % 713-8) BASO % (test code = 0.5 % 706-2) GRAN MAT x10^3(ANC) 6.10 10*3/uL 1.5-10.3 (test code = 2836444334) IMM GRAN x10^3 (test 0.05 10*3/uL 0-0.06 code = 5777830885) LYMPH x10^3 (test code 2.18 10*3/uL 0.7-7.4 = 731-0) MONO x10^3 (test code 0.69 10*3/uL 0-0.5 H = 742-7) EOS x10^3 (test code = 0.25 10*3/uL 0-0.4 711-2) BASO x10^3 (test code 0.05 10*3/uL 0-0.1 = 704-7) Lab Interpretation Abnormal (test code = 51041-2) [facility]
[2022-04-12] MEDS ORDERED: NA CHLORIDE 0.9% 2,000 ML ONE (20:01)
[2022-04-12 20:29] LABS: Absolute Lymphocytes (CBC) 1.5 K/uL (0.7-4.9); Hematocrit 39.3 % (36.0-45.0); Lymphocytes % 12.3 % (15.3-44.8); MCV 84.4 fL (80-100); MPV 7.4 fL (7.6-11.3); RBC Red Blood Cell Count 4.66 M/uL (3.86-4.86)
[2022-04-12 20:42] LABS: SARS-COV-2 RT PCR NEGATIVE (NEGATIVE)
[2022-04-12 20:42] LABS: Albumin 3.7 g/dL (3.4-5.0); Bilirubin Total 0.5 mg/dL (0.2-1.0); Potassium 3.1 mmol/L (3.5-5.1); Protein, Total 7.5 g/dL (6.4-8.2)
[2022-04-12] MEDS ORDERED: NA CHLORIDE 0.9% 50 ML IV ONE (20:44)
[2022-04-12] MEDS ORDERED: CEFTRIAXONE 1000 MG/VIAL ONE (20:44)
[2022-04-12] MEDS ORDERED: POTASSIUM 25 MEQ EFFERV TAB ONE (20:48)
--- NOTE | 2022-04-12 21:07 | RAD REPORT ---
EXAM DESCRIPTION: US - BREAST/AXILLA, LIMITED - 04/12/2022 8:34 pm CLINICAL HISTORY: Breast pain and swelling COMPARISON: None FINDINGS: The 9 o'clock position of the right breast is a 1.9 centimeter well-circumscribed isoecho ic mass. Long axis parallel to the chest wall. Prominent retroareolar ducts are seen. No abscess visualized IMPRESSION: 1.9 centimeter well-circumscribed mass 9 o'clock position right breast may represent a g alactocele. Follow-up ultrasound in 6 months recommended for re-evaluation No abscess seen
--- NOTE | 2022-04-12 21:35 | EDPHYS ---
Physician Documentation [facility] Name: Kaleigh Alston Age: 21 yrs Sex: Female : 2000 Arrival Date: 04/12/2022 Time: 19:37 Bed 20 Private MD: ED Physician Fabian Sutton HPI: 04/12 20:07 This 21 yrs old Female presents to ER via Ambulatory with complaints of Fever, snw Headache, Chills/Body Aches. 20:07 The patient reports fever, that was measured at 101 degrees Fahrenheit. Onset: The snw symptoms/episode began/occurred 2 day(s) ago, and became persistent. Associated signs and symptoms: Pertinent positives: chills. Severity of symptoms: At their worst the symptoms were moderate. The patient has experienced a previous episode. The patient has not recently seen a physician. post . 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 - Social history:: Smoking status: Patient denies any tobacco usage or history of. ROS: 20:05 Constitutional: Negative for chills and weight loss, +fever Eyes: Negative for injury, snw pain, redness, and discharge, ENT: Negative for injury, pain, and discharge, Neck: Negative for injury, pain, and swelling, Cardiovascular: Negative for chest pain, palpitations, and edema, Respiratory: Negative for shortness of breath, cough, wheezing, and pleuritic chest pain, Abdomen/GI: Negative for abdominal pain, nausea, vomiting, diarrhea, and constipation, Back: Negative for injury and pain, : Negative for injury, bleeding, discharge, and swelling, MS/Extremity: Negative for injury and deformity. 20:05 Skin: Positive for pt dx with Mastitis to left breast 2 weeks ago, took Augmentin x 7 days, improved but now right breast is tender with some surrounding redness. Exam: 20:02 Head/Face: Normocephalic, atraumatic. Eyes: Pupils equal round and reactive to light, snw extra-ocular motions intact. Lids and lashes normal. Conjunctiva and sclera are non-icteric and not injected. Cornea within normal limits. Periorbital areas with no swelling, redness, or edema. ENT: Nares patent. No nasal discharge, no septal abnormalities noted. Tympanic membranes are normal and external auditory canals are clear. Oropharynx with no redness, swelling, or masses, exudates, or evidence of obstruction, uvula midline. Mucous membranes moist. Neck: Trachea midline, no thyromegaly or masses palpated, and no cervical lymphadenopathy. Supple, full range of motion without nuchal rigidity, or vertebral point tenderness. No Meningismus. 20:02 Respiratory: Lungs have equal breath sounds bilaterally, clear to auscultation and percussion. No rales, rhonchi or wheezes noted. No increased work of breathing, no retractions or nasal flaring. Abdomen/GI: Soft, non-tender, with normal bowel sounds. No distension or tympany. No guarding or rebound. No evidence of tenderness throughout. Back: No spinal tenderness. No costovertebral tenderness. Full range of motion. Skin: Warm, dry with normal turgor. Normal color with no rashes, no lesions, and no evidence of cellulitis. MS/ Extremity: Pulses equal, no cyanosis. Neurovascular intact. Full, normal range of motion. Neuro: Awake and alert, GCS 15, oriented to person, place, time, and situation. Cranial nerves II-XII grossly intact. Motor strength 5/5 in all extremities. Sensory grossly intact. Cerebellar exam normal. Normal gait. Psych: Awake, alert, with orientation to person, place and time. Behavior, mood, and affect are within normal limits. 20:02 Constitutional: The patient appears alert, awake, febrile. 20:02 Chest/axilla: Palpation: tenderness to right breast behind areola. 20:02 Cardiovascular: Rate: tachycardic, Rhythm: regular, Heart sounds: normal, Edema: is not appreciated. Vital Signs: 19:47 BP 112 / 82; Pulse 102; Resp 22; Temp 99.9; Pulse Ox 98% on R/A; Weight 61.23 kg; vc1 Height 5 ft. 7 in. (170.18 cm); Pain 10/10; 20:45 BP 122 / 83; Pulse 92; Resp 18 S; Temp 99.6(O); Pulse Ox 99% on R/A; as6 22:03 BP 111 / 78; Pulse 94; Resp 18 S; Pulse Ox 99% on R/A; as6 19:47 Body Mass Index 21.14 (61.23 kg, 170.18 cm) vc1 MDM: 19:42 Patient medically screened. coco 21:34 Data reviewed: vital signs, nurses notes. Data interpreted: Pulse oximetry: on room air snw is 99 %. Interpretation: normal. Counseling: I had a detailed discussion with the patient and/or guardian regarding: the historical points, exam findings, and any diagnostic results supporting the discharge/admit diagnosis, lab results, radiology results, the need for outpatient follow up, to return to the emergency department if symptoms worsen or persist or if there are any questions or concerns that arise at home. Special discussion: Based on the history and exam findings, there is no indication for further emergent testing or inpatient evaluation. I discussed with the patient/guardian the need to see the OB Gyne specialist for further evaluation of the symptoms. I discussed with the patient/guardian the need to see the primary care provider for further evaluation of the symptoms. 04/12 19:44 Order name: COVID-19/FLU A+B/RSV; Complete Time: 20:43 snw 04/12 19:51 Order name: Blood Culture Adult (2) snw 04/12 19:51 Order name: CBC with Diff; Complete Time: 20:33 snw 04/12 19:51 Order name: CMP; Complete Time: 20:43 snw 04/12 19:51 Order name: Lactate w/ 2H reflex if indic.; Complete Time: 20:43 snw 04/12 19:51 Order name: EKG - Nurse/Tech; Complete Time: 20:16 snw 04/12 19:51 Order name: Labs collected and sent; Complete Time: 20:10 snw 04/12 19:51 Order name: O2 Per Protocol; Complete Time: 19:57 snw 04/12 19:51 Order name: O2 Sat Monitoring; Complete Time: 19:57 snw 04/12 20:35 Order name: BREAST/AXILLA, LIMITED; Complete Time: 21:12 EDMS 04/12 19:51 Order name: Vital Signs; Complete Time: 19:57 snw Administered Medications: 20:10 Drug: NS 0.9% (30 ml/kg) 30 ml/kg Route: IV; Rate: bolus; Site: right antecubital; as6 22:05 Follow up: Response: No adverse reaction; IV Status: Completed infusion; IV Intake: as6 1836.9ml 20:45 Drug: Rocephin (cefTRIAXone) 1 grams Route: IV; Rate: calculated rate; Site: right as6 antecubital; 22:04 Follow up: Response: No adverse reaction; IV Status: Completed infusion; IV Intake: [id number] 20:53 Drug: Potassium Effervescent Tablet 50 mEq Route: PO; jb4 22:04 Follow up: Response: No adverse reaction as6 Disposition Summary: 04/12/22 21:34 Discharge Ordered Location: Home snw Condition: Stable snw Diagnosis - Nonpurulent mastitis associated with snw - Hypokalemia snw Followup: snw - With: Emergency Department - When: As needed - Reason: Worsening of condition Followup: snw - With: Private Physician - When: 2 - 3 days - Reason: Recheck today's complaints, Continuance of care, Re-evaluation by your physician Discharge Instructions: - Discharge Summary Sheet snw - Tips for a Good Latch snw - Potassium Content of Foods snw - Mastitis snw - and Mastitis snw - Hypokalemia snw - Rehydration, Adult snw Forms: - Medication Reconciliation Form snw - Thank You Letter snw - Antibiotic Education snw - Prescription Opioid Use snw Prescriptions: - Dicloxacillin 500 mg Oral Capsule - take 1 capsule by ORAL route every 6 hours for 10 days; 40 capsule; Refills: 0, snw Product Selection Permitted Signatures: Dispatcher [employer] EDMS Fabian Sutton MD MD cha Waters, Shelly, AUTOMATIC PILOT MECHANIC-C AUTOMATIC PILOT MECHANIC-Csnw Dominic Khan, RN RN jb4 Brendon Mandujano RN RN as6 Carmella Lema RN RN vc1 Corrections: (The following items were deleted from the chart) 19:54 19:50 Allergies: Amoxicillin; vc1 vc1 19:56 19:51 Misc. Order ordered. snw snw 20:35 19:57 Extrmty Nonvasular Limited+US.RAD.BRZ ordered. EDMS EDMS
--- NOTE | 2022-04-12 21:35 | ER ---
Nurse's Notes [facility] Name: Kaleigh Alston Age: 21 yrs Sex: Female : 2000 Arrival Date: 04/12/2022 Time: 19:37 Bed 20 Private MD: Diagnosis: Nonpurulent mastitis associated with ;Hypokalemia Presentation: 04/12 19:47 Chief complaint: Patient states: "I think I have mastitis. I took Augmentin for 5 days vc1 2 weeks ago and now it's back. I went to urgent care today and they said it is mastitis but I'm worried I have an abscess because I still have the knots I had when I had it 2 wks ago. Today I was running 101 temp.". Coronavirus screen: Vaccine status: Patient reports being unvaccinated. At this time, the client does not indicate any symptoms associated with coronavirus-19. Ebola Screen: No symptoms or risks identified at this time. Initial Sepsis Screen: Does the patient meet any 2 criteria? RR > 20 per min. HR > 90 bpm. Yes Does the patient have a suspected source of infection? Yes: Skin breakdown/wound. Risk Assessment: Do you want to hurt yourself or someone else? Patient reports no desire to harm self or others. Onset of symptoms is unknown. 19:47 Method Of Arrival: Ambulatory vc1 19:47 Acuity: FRANK 3 vc1 Triage Assessment: 19:50 Headache History: The patient has had previous headaches and this one is similar to vc1 previous episodes. General: Appears in no apparent distress. uncomfortable, Behavior is calm, cooperative, appropriate for age. Pain: Complains of pain in right breast and left breast Pain does not radiate. Pain currently is 10 out of 10 on a pain scale. Pain began gradually, 2 wks ago Is continuous, Also complains of fever and trouble feeding . EENT: No deficits noted. Neuro: Level of Consciousness is awake, alert, obeys commands, Oriented to person, place, time, situation, Appropriate for age. Cardiovascular: No deficits noted. Respiratory: Airway is patent Respiratory effort is even, unlabored, Respiratory pattern is regular, symmetrical. GI: No deficits noted. No signs and/or symptoms were reported involving the gastrointestinal system. : No deficits noted. No signs and/or symptoms were reported regarding the genitourinary system. Derm: No deficits noted. No signs and/or symptoms reported regarding the dermatologic system. Musculoskeletal: No deficits noted. No signs and/or symptoms reported regarding the musculoskeletal system. 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 - Social history:: Smoking status: Patient denies any tobacco usage or history of. Screenin:52 [facility] ED Fall Risk Assessment (Adult) History of falling in the last 3 months, vc1 including since admission No falls in past 3 months (0 pts) Confusion or Disorientation No (0 pts) Intoxicated or Sedated No (0 pts) Impaired Gait No (0 pts) Mobility Assist Device Used No (0 pt) Altered Elimination No (0 pt). Abuse screen: Denies threats or abuse. Nutritional screening: No deficits noted. Tuberculosis screening: No symptoms or risk factors identified. Assessment: 20:00 General: Appears in no apparent distress. Behavior is calm, cooperative. General: as6 Reports chills for fever for feeling ill for fatigue for. Pain: Complains of pain in left breast and right breast. Neuro: Level of Consciousness is awake, alert, obeys commands, Oriented to person, place, time, situation, Reports headache. Cardiovascular: Capillary refill < 3 seconds Patient's skin is warm and dry. Respiratory: Respiratory effort is even, unlabored. :. 20:45 Reassessment: Patient appears in no apparent distress at this time. Patient and/or as6 family updated on plan of care and expected duration. Pain level reassessed. Patient is alert, oriented x 3, equal unlabored respirations, skin warm/dry/pink. Vital Signs: 19:47 BP 112 / 82; Pulse 102; Resp 22; Temp 99.9; Pulse Ox 98% on R/A; Weight 61.23 kg; vc1 Height 5 ft. 7 in. (170.18 cm); Pain 10/10; 20:45 BP 122 / 83; Pulse 92; Resp 18 S; Temp 99.6(O); Pulse Ox 99% on R/A; as6 22:03 BP 111 / 78; Pulse 94; Resp 18 S; Pulse Ox 99% on R/A; as6 19:47 Body Mass Index 21.14 (61.23 kg, 170.18 cm) vc1 ED Course: 19:37 Patient arrived in ED. jj6 19:37 [facility] Navarro FNP-C [facility] snw 19:37 Fabian Sutton MD is Attending Physician. snw 19:50 Triage completed. vc1 19:53 Arm band placed on right wrist. vc1 19:54 Patient has correct armband on for positive identification. Placed in gown. Bed in low vc1 position. Pulse ox on. NIBP on. 19:57 COVID-19/FLU A+B/RSV Sent. jb4 20:02 Brendon Mandujano, RN is Primary Nurse. as6 20:10 Inserted saline lock: 20 gauge in right antecubital area, using aseptic technique. as6 Blood collected. 20:35 BREAST/AXILLA, LIMITED In Process Unspecified. EDMS 22:06 No provider procedures requiring assistance completed. IV discontinued, intact, as6 bleeding controlled, No redness/swelling at site. Pressure dressing applied. Administered Medications: 20:10 Drug: NS 0.9% (30 ml/kg) 30 ml/kg Route: IV; Rate: bolus; Site: right antecubital; as6 22:05 Follow up: Response: No adverse reaction; IV Status: Completed infusion; IV Intake: as6 1836.9ml 20:45 Drug: Rocephin (cefTRIAXone) 1 grams Route: IV; Rate: calculated rate; Site: right as6 antecubital; 22:04 Follow up: Response: No adverse reaction; IV Status: Completed infusion; IV Intake: [id number] 20:53 Drug: Potassium Effervescent Tablet 50 mEq Route: PO; jb4 22:04 Follow up: Response: No adverse reaction as6 Medication: 19:53 VIS not applicable for this client. vc1 Intake: 22:04 IV: 50ml; Total: 50ml. as6 22:05 IV: 1837ml; Total: 1887ml. as6 Outcome: 21:34 Discharge ordered by . snw 22:06 Discharged to home ambulatory. as6 22:06 Condition: stable 22:06 Discharge instructions given to patient, Instructed on discharge instructions, follow up and referral plans. medication usage, Demonstrated understanding of instructions, follow-up care, medications, Prescriptions given X 1. 22:06 Patient left the ED. as6 Signatures: Dispatcher [employer] EDMS Sara Navarro, CERTIFIED NURSE-C CERTIFIED NURSE-Csnw Dominic Khan RN RN jb4 Halle Ruiz jj6 Brendon Mandujano RN RN as6 Carmella Lema RN RN vc1 Corrections: (The following items were deleted from the chart) 19:54 19:50 Allergies: Amoxicillin; vc1 vc1
[2022-04-12 22:31] VITALS: TEMP 99.6; O2SAT 99
[2022-04-12 22:33] VITALS: BP 111/78
== END 2022-04-12 22:06 | disposition home or self-care (01) ==
LOC: ER 19:34
DX: O91.23 Nonpurulent mastitis associated with lactation (principal); E87.6 Hypokalemia; Z20.822 Contact with and (suspected) exposure to COVID-19; Z88.1 Allergy status to other antibiotic agents
CPT/HCPCS: 96365; 87040 ×2; 85025; 36415; 87205; 83605; 80053; 0241U; 76642; 99284; J7030

== ENCOUNTER 2022-04-20 18:47 | Emergency (ER) | payer OTHER ==
--- OUTSIDE RECORDS SUMMARY | 2022-04-20 19:05 | XMS REPORT | Continuity of Care Document ---
:2000 Author Organization [facility] t Address [address] [place] [address] Care Team Providers Name Role Phone PCP, PATIENT DOES NOT HAVE A Primary Care Physician UnavailRavi Shepherd Attending Clinician Unavailable SAMRA REYES Attending Clinician [...] Unavailable ELAINA AL Attending Clinician Unavailable Charles HUANGP, Elaina Attending Clinician CHRIS HONEYCUTT Attending Clinician Unavailable Chris Honeycutt PA-C Attending Clinician CATHY DENNISON Attending Clinician Unavailable Jesi SPORTS AGENT, Cathy Campos Attending Clinician SUSAN BERMUDEZ Attending Clinician Unavailable Vincmge SPORTS AGENT, Shinisaac Attending Clinician [email or web address] Attending Clinician Unavailable Olimpia Lin Attending Clinician [phone] Doctor Unassigned, Lerna Attending Clinician Unavailable Giuseppe Christopher Attending Clinician Unavailable Christopher Slater Attending Clinician Unavailable [email or web address] Attending Clinician Unavailable Nicola Pichardo DO Attending Clinician Lab, [facility] Pob I Attending Clinician Unavailable Nadiya Jackson Attending Clinician NADIYA BLANCO Attending Clinician Unavailable Adore Jolly RN Attending Clinician Unavailable CHERRY NORIEGA Attending Clinician Unavailable Leann HUANGP, [place] Attending Clinician Francie Israel RN Attending Clinician Unavailable Akinmando WHGilbert ROCHA Attending Clinician [phone] GILBERT HEADLEY Attending Clinician Unavailable TED MODI Attending Clinician Unavailable TED MODI Attending Clinician Unavailable Teresa Guerrero MD Attending Clinician Ted Modi MD Attending Clinician Glo Aggarwal DO Attending Clinician ABHAY STAPLETON Attending Clinician Unavailable Abhay Mtz Attending Clinician Cielo BLANTON, Carmen Attending Clinician TERESA GUERRERO Admitting Clinician Unavailable YSD PAK Admitting Clinician Unavailable [email or web address] Admitting Clinician Unavailable [email or web address] Admitting Clinician Unavailable TED MODI Admitting Clinician Unavailable Gera BLANTON, Ted Admitting Clinician Teresa Guerrero MD Admitting Clinician Payers Payer Name Policy Type Policy Number Effective Date Expiration Date Samina [facility] [id number] 2019 00:00:00 [facility] [id number] [place]MEDICA[place] HMO[place] MEDICAID OF [place] [id number] 2019 00:00:00 Problems Condition Condition Condition Status Onset Resolution Last Treating Co mments Source Name Details Category Date Date Treatment Clinician Date Bacterial Bacterial Problem Active Karlene via vaginosis Vaginosis 09-06 [facility] 00:00: 00 Routine Routine Problem Active [facility] 08-16 [facility] care Care 00:00: 00 Problem Active [facility] 05 Medical 00:00: 00 Gestation Gestation Problem Active Karlene via period, 8 Period, 8 08-16 [facility] weeks Weeks 00:00: 00 Mastitis Mastitis Disease Active Unive rs 09-02 ity of 00:00: [place] 00 [facility] Screening Screening Disease Active Uni vers examinatio examinatio 05 it y of n for STD n for STD 00:00: [place] (sexually (sexually 00 [facility] transmitte transmitte Br anch d disease) d disease) 34 weeks 34 weeks Disease Active 2019-0 Unive rs gestation gestation 4-12 ity of of of 00:00: [place] 00 [facility] Pre-eclamp Pre-eclamp Disease Active 2020-0 U nivers eliel in eliel in 4-12 ity of third third 00:00: [place] trimester trimester 00 [facility] Preeclamps Preeclamps Disease Active 2020-0 U nivers ia, ia, 4-12 ity of severe, severe, 00:00: [place] third third 00 Medical trimester trimester Bran ch Mother's Mother's Disease Active 2020-0 Unive rs group B group B 4-12 ity of Streptococ Streptococ 00:[place] c[place] cus 00 Medical colonizati colonizati Br anch on status on status unknown unknown Need for Need for Disease Active 2019-0 Unive rs prophylact prophylact 3-04 it y of ic ic 00:00: [place] vaccinatio vaccinatio 00 Me dical n and n and Branch inoculatio inoculatio n against n against influenza influenza Urinary Urinary Disease Active Univers tract tract 2-12 [place]y of infection infection 00:00[place] without without 00 Medical hematuria, hematuria, Br anch site site unspecifie unspecifie d d Vaginal Vaginal Disease Active 2018-04 Univers discharge discharge 2-04 ity of 00:00: [place] 00 Medical Branch Supervisio Supervisio Disease Active 2018-04 U nivers n of high n of high 0-03 ity of risk risk 00:00: [place] , , 00 Me dical antepartum antepartum Br anch High risk High risk Disease Active 2018-04 Uni vers teen teen 0-03 [place] of 00:[place] third in third 00 Medica l trimester trimester Bran ch Primigravi Primigravi Disease Active 2018-04 U nivers da in da in 0-03 ity of second second 00:00: [place] trimester trimester 00 [facility] Branch Vaginal Vaginal Disease Active 2018-04 Univers bleeding bleeding 0-03 ity of affecting affecting 00:00[place] early early 00 Medical Bran ch Nausea Nausea Disease Active 2018-04 Univers without without 0-03 ity of vomiting vomiting 00:00: [place] 00 Medical Branch No known No known Disease Unive rs active active ity of problems problems [facility] Allergies, Adverse Reactions, Alerts Allergy Allergy Status Severity Reaction(s) Onset Inactive Treating Comm ents Source Name Type Date Date Clinician AMOXICIL DRUG Active Rash Univers LUPE INGREDI 918 ity of 00:00: [place] 00 Medical Branch Amoxicil Propensi Active Rash Univer s lupe ty to 918 ity of adverse 00:00: [place] reaction 00 Medical s Branch NO KNOWN Drug Active Univers ALLERGIE Class ity of S [facility] PENICILL Allergy Active [facility] INS to Medical substanc e Social History Social Habit Start Date Stop Date Quantity Comments Source ASSERTION 2018-12-10 University of 00:00:00 [place] [facility] History SDOH University o f Alcohol Std [place] Medical Drinks Branch History SDOH University o f Alcohol Binge [place] [facility] al [facility] History SDOH University o f Alcohol Comment [place] [facility] ical [facility] History of Current smoker University of tobacco use [place] [facility] Sex [facility] Exposure to 2022-04-02 2022-04-12 Not sure University of SARS-CoV-2 00:00:00 14:08:00 [facility] (event) Branch Tobacco use and 2022-03-27 2022-03-27 Smokeless tobacco Un iversity of exposure 00:00:00 00:00:00 non-user [facility] Branch Alcohol intake 2022-03-27 2022-03-27 Lifetime University of 00:00:00 00:00:00 non-drinker [facility] (finding) Branch History SDOH 2019-01-14 2019-01-14 1 University o f Alcohol Frequency 00:00:00 00:00:00 [facility] edical [place] Smoking Status Start Date Stop Date Source Ex-smoker 2022-03-27 00:00:00 2022-03-27 00:00:00 Universi ty of [facility] Never Smoker [facility] Medications Ordered Filled Start Stop Current Ordering Indication Dosage Frequency Signature Comments Components Source Medication Medication Date Date Medication? Clinician (SIG) Name Name dicloxacill 2021-04- Yes [id number] 500mg Take 1 Univers in 500 mg 2-30 01-10 capsule by ity of capsule 00:00: 05:59 mouth 4 [place] 00 :00 (four) Medical times Branch daily for 10 days. dicloxacill 2021-04- Yes [id number] 500mg Take 1 Univers in 500 mg 2-30 01-10 capsule by ity of capsule 00:00: 05:59 mouth 4 [place] 00 :00 (four) Medical times Branch daily for 10 days. cephALEXin 2021-04- Yes [id number] 500mg Take 10 mL Univers 250 mg/5 mL 2-30 01-10 by mouth 4 i ty of suspension 00:00: 05:59 (four) [place] :00 times Medical daily for Branch 10 days. dicloxacill 2021-04- Yes [id number] 500mg Take 1 Univers in 500 mg 2-30 01-10 capsule by ity of capsule 00:00: 05:59 mouth 4 [place] 00 :00 (four) Medical times Branch daily for 10 days. cephALEXin 2021-04- Yes [id number] 500mg Take 10 mL Univers 250 mg/5 mL 2-30 -10 by mouth 4 i ty of suspension 00:00: 05:59 (four) [place] 00 :00 times Medical daily for Branch 10 days. Prenat Vit 2021-04 Yes Take by Univ ers Comb.10-Iro 2-14 mouth. ity of n-FA-DHA 17:03: [place] 65-1-250 mg 04 Medical combo pack Branch Prenat Vit 2021-04 Yes Take by Univ ers Comb.10-Iro 2-14 mouth. ity of n-FA-DHA 17:03: [place] 65-1-250 mg 04 Medical combo pack Branch Prenat Vit 2021-04 Yes Take by Univ ers Comb.10-Iro 2-14 mouth. ity of n-FA-DHA 17:03: [place] 65-1-250 mg 04 Medical combo pack Branch Prenat Vit 2021-04 Yes Take by Univ ers Comb.10-Iro 2-14 mouth. ity of n-FA-DHA 17:03: [place] 65-1-250 mg 04 Medical combo pack Branch ibuprofen 2021-04 Yes [id number] 600mg Take 1 Univers 600 mg 2-14 tablet by ity of tablet 00:00: mouth [place] 00 every 6 Medical (six) Branch hours as needed for Pain (scale 4-6). miconazole 2021-04 Yes [id number] 1{appli Insert 1 Univers (MONISTAT 2-14 cator} Applicator it y of 7) 2 % 00:00: into [place] vaginal 00 vagina at Medical cream bedtime. Branch ibuprofen 2021-04 Yes [id number] 600mg Take 1 Univers 600 mg 2-14 tablet by ity of tablet 00:00: mouth [place] 00 every 6 Medical (six) Branch hours as needed for Pain (scale 4-6). miconazole 2021-04 Yes [id number] 1{appli Insert 1 Univers (MONISTAT 2-14 cator} Applicator it y of 7) 2 % 00:00: into [place] vaginal 00 vagina at Medical cream bedtime. Branch ibuprofen 2021-04 Yes [id number] 600mg Take 1 Univers 600 mg 2-14 tablet by ity of tablet 00:00: mouth [place] 00 every 6 Medical (six) Branch hours as needed for Pain (scale 4-6). miconazole 2021-04 Yes [id number] 1{appli Insert 1 Univers (MONISTAT 2-14 cator} Applicator it y of 7) 2 % 00:00: into [place] vaginal 00 vagina at Medical cream bedtime. Branch ibuprofen 2021-04 Yes [id number] 600mg Take 1 Univers 600 mg 2-14 tablet by ity of tablet 00:00: mouth [place] 00 every 6 Medical (six) Branch hours as needed for Pain (scale 4-6). miconazole 2021-04 Yes [id number] 1{appli Insert 1 Univers (MONISTAT 2-14 cator} Applicator it y of 7) 2 % 00:00: into [place] vaginal 00 vagina at Medical cream bedtime. Branch amoxicillin 2021-04- Yes [id number] 870mg Take 7.25 Univers -pot 2-14 12-22 mL by ity of clavulanate 00:00: 05:59 [place] 600-42.9 00 :00 the Medical mg/5 mL morning Branch suspension and 7.25 mL in the evening. Do all this for 7 days. amoxicillin 2021-04- No [id number] 1{tbl} Take 1 Univers -clavulanat 2-14 12-14 tablet by it y of e 00:00: 00:00 mouth in [place] (AUGMENTIN) 00 :00 the Medical 875-125 mg morning Branch per tablet and 1 tablet in the evening. Do all this for 7 days. fluconazole 2021-04- No [id number] 150mg Take 1 Univers (DIFLUCAN) 2-14 12-14 tablet by ity of 150 mg 00:00: 00:00 mouth [place] tablet 00 :00 now for 1 Medical dose. Branch No known No No known Unive rs medications 9-24 medication it y of 16:00: [address] No known 2021-0 No No known Unive rs medications 9-24 medication it y of 16:00: [address] No known 2021-0 No No known Unive rs medications 8-17 medication it y of 12:52: [address] No known 2021-0 No No known Unive rs medications 8-15 medication it y of 15:47: [address] No known 2022-0 No No known Unive rs medications 8-08 medication it y of 07:55: s [address] sulfamethox 2019- 2020- No [id number] 1{tbl} Take 1 Univers azole-trime 8-01 12- tablet by it y of thoprim 00:00: 04:59 mouth 2 [place] (BACTRIM 00 :00 (two) Medical DS) 800-160 times Branch mg per daily for tablet 10 days. sulfamethox 2020- No [id number] 1{tbl} Take 1 Univers azole-trime 8-01 12- tablet by it y of thoprim 00:00: 04:59 mouth 2 [place] (BACTRIM 00 :00 (two) Medical DS) 800-160 times Branch mg per daily for tablet 10 days. No known 2020-0 No Univers medications 7-21 ity of 17:05: [address] No known 2019-0 No Univers medications 7-21 ity of 17:05: [address] clindamycin 2019- 2020- No [id number] 300mg Take 1 Univers 300 mg 5- 06-02 capsule by ity of capsule 00:00: 04:59 mouth 4 [place] 00 :00 ([facility]) [facility] daily for 10 days. clindamycin 2019-0 2020- No [id number] 300mg Take 1 Univers 300 mg 5-22 06-02 capsule by ity of capsule 00:00: 04:59 mouth 4 [place] 00 :00 ([facility]) [facility] daily for 10 days. MELATONIN 2019-0 2020- No Take by Univ ers ORAL 4-15 04-15 mouth. ity of 19:40: 00:00 [place] 13 :00 [facility] Branch human 2020-0 Yes .5mL 0.5 mL, Univers papillomav 4-15 Intramuscu ity of vac,9-[place](P 11:10: lar, [place] F) 15 ONCE-PRIOR Medical (GARDASIL 9 TO Branch (PF)) vial DISCHARGE, 0.5 mL 1 dose, Starting Fri07/28/19 at 0610, Until Discontinu ed, Routine, Give vaccine prior to discharge labetalol 2020-0 Yes [id number] 100mg Take 10 mL Univers (NORMODYNE) 4-15 by mouth 2 it y of 10 mg/mL 00:00: (two) [place] oral 00 times Medical suspension daily. Branch 2020-0 Yes [id number] 1{tbl} Take 1 Univers vitamin 4-15 tablet by ity of w/FA tablet 00:00: mouth [place] 00 daily. Medical Branch docusate 2020-0 Yes [id number] 240mg Take 1 U nivers calcium 240 4-15 capsule by it y of mg capsule 00:00: mouth [place] 00 daily as Medical needed for Branch Constipati on. ferrous 2020-0 Yes [id number] 325mg Take 1 Un manav sulfate 325 4-15 tablet by ity of mg (65 mg 00:00: mouth 2 [place] iron) 00 (two) Medical tablet times Branch daily. ibuprofen 2020-0 Yes [id number] 600mg Take 1 Univers 600 mg 4-15 tablet by ity of tablet 00:00: mouth [place] 00 every 6 Medical (six) Branch hours as needed (Pain). Take with food or milk. labetalol 2020-0 Yes [id number] 100mg Take 10 mL Univers (NORMODYNE) 4-15 by mouth 2 it y of 10 mg/mL 00:00: (two) [place] oral 00 times Medical suspension daily. Branch 2020-0 Yes [id number] 1{tbl} Take 1 Univers vitamin 4-15 tablet by ity of w/FA tablet 00:00: mouth [place] 00 daily. Medical Branch docusate 2020-0 Yes [id number] 240mg Take 1 U nivers calcium 240 4-15 capsule by it y of mg capsule 00:00: mouth once [place] 00 daily as Medical needed for Branch Constipati on. ferrous 2020-0 Yes [id number] 325mg Take 1 Un manav sulfate 325 4-15 tablet by ity of mg (65 mg 00:00: mouth 2 [place] iron) 00 (two) Medical tablet times Branch daily. ibuprofen 2020-0 Yes [id number] 600mg Take 1 Univers 600 mg 4-15 tablet by ity of tablet 00:00: mouth [place] 00 every 6 Medical (six) Branch hours as needed (Pain). Take with food or milk. labetalol 2020-0 Yes [id number] 100mg Take 10 mL Univers (NORMODYNE) 4-15 by mouth 2 it y of 10 mg/mL 00:00: (two) [place] oral 00 times Medical suspension daily. Branch 2020-0 Yes [id number] 1{tbl} Take 1 Univers vitamin 4-15 tablet by ity of w/FA tablet 00:00: mouth [place] 00 daily. Medical Branch docusate 2020-0 Yes [id number] 240mg Take 1 U nivers calcium 240 4-15 capsule by it y of mg capsule 00:00: mouth once [place] 00 daily as Medical needed for Branch Constipati on. ferrous 2020-0 Yes [id number] 325mg Take 1 Un manav sulfate 325 4-15 tablet by ity of mg (65 mg 00:00: mouth 2 [place] iron) 00 (two) Medical tablet times Branch daily. ibuprofen 2020-0 Yes [id number] 600mg Take 1 Univers 600 mg 4-15 tablet by ity of tablet 00:00: mouth [place] 00 every 6 Medical (six) Branch hours as needed (Pain). Take with food or milk. labetalol 2020-0 Yes [id number] 100mg Take 10 mL Univers (NORMODYNE) 4-15 by mouth 2 it y of 10 mg/mL 00:00: (two) [place] oral 00 times Medical suspension daily. Branch 2019-0 Yes [id number] 1{tbl} Take 1 Univers vitamin 4-15 tablet by ity of w/FA tablet 00:00: mouth [place] 00 daily. Medical Branch docusate 2020-0 Yes [id number] 240mg Take 1 U nivers calcium 240 4-15 capsule by it y of mg capsule 00:00: mouth once [place] 00 daily as Medical needed for Branch Constipati on. ferrous 2020-0 Yes [id number] 325mg Take 1 Un manav sulfate 325 4-15 tablet by ity of mg (65 mg 00:00: mouth 2 [place] iron) 00 (two) Medical tablet times Branch daily. ibuprofen 2020-0 Yes [id number] 600mg Take 1 Univers 600 mg 4-15 tablet by ity of tablet 00:00: mouth [place] 00 every 6 Medical (six) Branch hours as needed (Pain). Take with food or milk. labetalol 2020-0 Yes [id number] 100mg Take 10 mL Univers (NORMODYNE) 4-15 by mouth 2 it y of 10 mg/mL 00:00: (two) [place] oral 00 times Medical suspension daily. Branch 2020-0 Yes [id number] 1{tbl} Take 1 Univers vitamin 4-15 tablet by ity of w/FA tablet 00:00: mouth [place] 00 daily. Medical Branch docusate 2020-0 Yes [id number] 240mg Take 1 U nivers calcium 240 4-15 capsule by it y of mg capsule 00:00: mouth once [place] 00 daily as Medical needed for Branch Constipati on. ferrous 2020-0 Yes [id number] 325mg Take 1 Un manav sulfate 325 4-15 tablet by ity of mg (65 mg 00:00: mouth 2 [place] iron) 00 (two) Medical tablet times Branch daily. ibuprofen 2020-0 Yes [id number] 600mg Take 1 Univers 600 mg 4-15 tablet by ity of tablet 00:00: mouth [place] 00 every 6 Medical (six) Branch hours as needed (Pain). Take with food or milk. labetalol 2020-0 Yes [id number] 100mg Take 10 mL Univers (NORMODYNE) 4-15 by mouth 2 it y of 10 mg/mL 00:00: (two) [place] oral 00 times Medical suspension daily. Branch 2020-0 Yes [id number] 1{tbl} Take 1 Univers vitamin 4-15 tablet by ity of w/FA tablet 00:00: mouth [place] 00 daily. Medical Branch docusate 2020-0 Yes [id number] 240mg Take 1 U nivers calcium 240 4-15 capsule by it y of mg capsule 00:00: mouth once [place] 00 daily as Medical needed for Branch Constipati on. ferrous 2020-0 Yes [id number] 325mg Take 1 Un manav sulfate 325 4-15 tablet by ity of mg (65 mg 00:00: mouth 2 [place] iron) 00 (two) Medical tablet times Branch daily. ibuprofen 2020-0 Yes [id number] 600mg Take 1 Univers 600 mg 4-15 tablet by ity of tablet 00:00: mouth [place] 00 every 6 Medical (six) Branch hours as needed (Pain). Take with food or milk. labetalol 2020-0 Yes [id number] 100mg Take 10 mL Univers (NORMODYNE) 4-15 by mouth 2 it y of 10 mg/mL 00:00: (two) [place] oral 00 times Medical suspension daily. Branch 2020-0 Yes [id number] 1{tbl} Take 1 Univers vitamin 4-15 tablet by ity of w/FA tablet 00:00: mouth [place] 00 daily. Medical Branch docusate 2020-0 Yes [id number] 240mg Take 1 U nivers calcium 240 4-15 capsule by it y of mg capsule 00:00: mouth once [place] 00 daily as Medical needed for Branch Constipati on. ferrous 2020-0 Yes [id number] 325mg Take 1 Un manav sulfate 325 4-15 tablet by ity of mg (65 mg 00:00: mouth 2 [place] iron) 00 (two) Medical tablet times Branch daily. ibuprofen 2020-0 Yes [id number] 600mg Take 1 Univers 600 mg 4-15 tablet by ity of tablet 00:00: mouth [place] 00 every 6 Medical (six) Branch hours as needed (Pain). Take with food or milk. labetalol 2020-0 Yes [id number] 100mg Take 10 mL Univers (NORMODYNE) 4-15 by mouth 2 it y of 10 mg/mL 00:00: (two) [place] oral 00 times Medical suspension daily. Branch 2020-0 Yes [id number] 1{tbl} Take 1 Univers vitamin 4-15 tablet by ity of w/FA tablet 00:00: mouth [place] 00 daily. Medical Branch docusate 2020-0 Yes [id number] 240mg Take 1 U nivers calcium 240 4-15 capsule by it y of mg capsule 00:00: mouth once [place] 00 daily as Medical needed for Branch Constipati on. ferrous 2020-0 Yes [id number] 325mg Take 1 Un manav sulfate 325 4-15 tablet by ity of mg (65 mg 00:00: mouth 2 [place] iron) 00 (two) Medical tablet times Branch daily. ibuprofen 2020-0 Yes [id number] 600mg Take 1 Univers 600 mg 4-15 tablet by ity of tablet 00:00: mouth [place] 00 every 6 Medical (six) Branch hours as needed (Pain). Take with food or milk. labetalol 2020-0 Yes [id number] 100mg Take 10 mL Univers (NORMODYNE) 4-15 by mouth 2 it y of 10 mg/mL 00:00: (two) [place] oral 00 times Medical suspension daily. Branch 2020-0 Yes [id number] 1{tbl} Take 1 Univers vitamin 4-15 tablet by ity of w/FA tablet 00:00: mouth [place] 00 daily. Medical Branch docusate 2020-0 Yes [id number] 240mg Take 1 U nivers calcium 240 4-15 capsule by it y of mg capsule 00:00: mouth once [place] 00 daily as Medical needed for Branch Constipati on. ferrous 2020-0 Yes [id number] 325mg Take 1 Un manav sulfate 325 4-15 tablet by ity of mg (65 mg 00:00: mouth 2 [place] iron) 00 (two) Medical tablet times Branch daily. ibuprofen 2020-0 Yes [id number] 600mg Take 1 Univers 600 mg 4-15 tablet by ity of tablet 00:00: mouth [place] 00 every 6 Medical (six) Branch hours as needed (Pain). Take with food or milk. labetalol 2020-0 Yes [id number] 100mg Take 10 mL Univers (NORMODYNE) 4-15 by mouth 2 it y of 10 mg/mL 00:00: (two) [place] oral 00 times Medical suspension daily. Branch 2020-0 Yes [id number] 1{tbl} Take 1 Univers vitamin 4-15 tablet by ity of w/FA tablet 00:00: mouth [place] 00 daily. Medical Branch docusate 2020-0 Yes [id number] 240mg Take 1 U nivers calcium 240 4-15 capsule by it y of mg capsule 00:00: mouth once [place] 00 daily as Medical needed for Branch Constipati on. ferrous 2020-0 Yes [id number] 325mg Take 1 Un manav sulfate 325 4-15 tablet by ity of mg (65 mg 00:00: mouth 2 [place] iron) 00 (two) Medical tablet times Branch daily. ibuprofen 2020-0 Yes [id number] 600mg Take 1 Univers 600 mg 4-15 tablet by ity of tablet 00:00: mouth [place] 00 every 6 Medical (six) Branch hours as needed (Pain). Take with food or milk. labetalol 2020-0 Yes [id number] 100mg Take 10 mL Univers (NORMODYNE) 4-15 by mouth 2 it y of 10 mg/mL 00:00: (two) [place] oral 00 times Medical suspension daily. Branch 2020-0 Yes [id number] 1{tbl} Take 1 Univers vitamin 4-15 tablet by ity of w/FA tablet 00:00: mouth [place] 00 daily. Medical Branch docusate 2020-0 Yes [id number] 240mg Take 1 U nivers calcium 240 4-15 capsule by it y of mg capsule 00:00: mouth once [place] 00 daily as Medical needed for Branch Constipati on. ferrous 2020-0 Yes [id number] 325mg Take 1 Un manav sulfate 325 4-15 tablet by ity of mg (65 mg 00:00: mouth 2 [place] iron) 00 (two) Medical tablet times Branch daily. ibuprofen 2020-0 Yes [id number] 600mg Take 1 Univers 600 mg 4-15 tablet by ity of tablet 00:00: mouth [place] 00 every 6 Medical (six) Branch hours as needed (Pain). Take with food or milk. labetalol 2020-0 Yes [id number] 100mg Take 10 mL Univers (NORMODYNE) 4-15 by mouth 2 it y of 10 mg/mL 00:00: (two) [place] oral 00 times Medical suspension daily. Branch 2019-0 Yes [id number] 1{tbl} Take 1 Univers vitamin 4-15 tablet by ity of w/FA tablet 00:00: mouth [place] 00 daily. Medical Branch docusate 2020-0 Yes [id number] 240mg Take 1 U nivers calcium 240 4-15 capsule by it y of mg capsule 00:00: mouth once [place] 00 daily as Medical needed for Branch Constipati on. ferrous 2020-0 Yes [id number] 325mg Take 1 Un manav sulfate 325 4-15 tablet by ity of mg (65 mg 00:00: mouth 2 [place] iron) 00 (two) Medical tablet times Branch daily. ibuprofen 2020-0 Yes [id number] 600mg Take 1 Univers 600 mg 4-15 tablet by ity of tablet 00:00: mouth [place] 00 every 6 Medical (six) Branch hours as needed (Pain). Take with food or milk. labetalol 2019-0 2020- No [id number] 100mg Take 10 mL Univers (NORMODYNE) 4-15 06-08 by mouth 2 i ty of 10 mg/mL 00:00: 00:00 (two) [place] oral 00 :00 times Medical suspension daily. Branch 2019-0 2020- No [id number] 1{tbl} Take 1 Univers vitamin 4-15 06-08 tablet by ity of w/FA tablet 00:00: 00:00 mouth [place] 00 :00 daily. Medical Branch docusate 2019-0 2020- No [id number] 240mg Take 1 Univers calcium 240 4-15 06-08 capsule by i ty of mg capsule 00:00: 00:00 mouth once [place] 00 :00 daily as Medical needed for Branch Constipati on. ferrous 2020-0 2020- No [id number] 325mg Take 1 U nivers sulfate 325 4-15 06-08 tablet by it y of mg (65 mg 00:00: 00:00 mouth 2 [place] iron) 00 :00 (two) Medical tablet times Branch daily. ibuprofen 2020- No [id number] 600mg Take 1 Univers 600 mg 4-15 06-08 tablet by ity of tablet 00:00: 00:00 mouth [place] 00 :00 every 6 Medical (six) Branch hours as needed (Pain). Take with food or milk. labetalol 2019- No [id number] 100mg Take 10 mL Univers (NORMODYNE) 4-15 06-08 by mouth 2 i ty of 10 mg/mL 00:00: 00:00 (two) [place] oral 00 :00 times Medical suspension daily. Branch 2019- No [id number] 1{tbl} Take 1 Univers vitamin 4-15 06-08 tablet by ity of w/FA tablet 00:00: 00:00 mouth [place] 00 :00 daily. Medical Branch docusate 2019- No [id number] 240mg Take 1 Univers calcium 240 -15 06-08 capsule by i ty of mg capsule 00:00: 00:00 mouth once [place] 00 :00 daily as Medical needed for Branch Constipati on. ferrous 2019- 2020- No [id number] 325mg Take 1 U nivers sulfate 325 4-15 06-08 tablet by it y of mg (65 mg 00:00: 00:00 [place] iron[place] 00 :00 (two) Medical tablet times Branch daily. ibuprofen 2019- No [id number] 600mg Take 1 [facility] 600 mg 4-15 06-08 tablet by ity of tablet 00:00: 00:00 mouth [place] 00 :00 every 6 Medical (six) Branch hours as needed (Pain). Take with food or milk. labetalol 2019- No [id number] 100mg Take 10 mL Univers (NORMODYNE) 4-15 06-08 by mouth 2 i ty of 10 mg/mL 00:00: 00:00 (two) [place] oral 00 :00 times Medical suspension daily. Branch 2019- 2020- No [id number] 1{tbl} Take 1 Univers vitamin 4-15 06-08 tablet by ity of w/FA tablet 00:00: 00:00 [place] 00 :00 daily. Medical Branch docusate 2019-0 2020- No [id number] 240mg Take 1 Univers calcium 240 07-27 capsule by i ty of mg capsule 00:00: 00:00 mouth once [place] 00 :00 daily as Medical needed for Branch Constipati on. ferrous 2019-0 2020- No [id number] 325mg Take 1 U nivers sulfate 325 07-27-08 tablet by it y of mg (65 mg 00:00: 00:00 [place] iron[place] 00 :00 (two) Medical tablet times Branch daily. ibuprofen 2019-0 2020- No [id number] 600mg Take 1 Univers 600 mg 07-27 tablet by ity of tablet 00:00: 00:00 mouth [place] 00 :00 every 6 Medical (six) Branch hours as needed (Pain). Take with food or milk. labetalol 2019-0 Yes 100mg 100 mg, Univ ers (NORMODYNE) - Oral, BID, it y of 10 mg/mL 16:30: First dose [place] as oral 00 on [facility] suspension 07/27/19 at [facility] 100 mg 1130, Until Discontinu ed, Routine labetalol 2019-0 2020- No 20mg 20 mg, Unive rs (NORMODYNE) 07-26-14 Slow IV ity of injection 14:00: 12:59 [place], [place] 20 mg 00 :00 ONCE, 1 Medical dose, [facility] 07/27/19 at 0900, Routine hydralAZINE 2019- 2020- No 5mg 5 mg, Slow Univers (APRESOLINE 07-26- IV Push, ity of ) injection 12:00: 11:53 ONCE, 1 [place] 5 mg 00 :00 dose, [facility] Medical 07/27/19 at Branch 0700, Routine magnesium 2019-0 2020- No 2g/h 2 g/hr (25 U nivers sulfate in 07-26-14 mL/hr), at it y of LR 40 09:15: 21:14 25 mL/hr, [place] gram/500 mL 00 :00 IV Medical IV Solution Infusion, [facility] CONTINUOUS , Starting [facility] 07/27/19 at 0415, Until [facility] 07/27/19 at 1614, KARIS traMADol 2019-0 Yes [...] Yes 300ug 300 mcg, Univer s immune 4- Intramuscu ity of globulin 20:03: lar, ONCE, [place]if[place] as (RHOGAM) 31 For 1 Medical syringe 300 dose, Branch mcg Conditiona l, Routine simethicone 2020-0 Yes 160mg 160 mg, Un manav (GAS RELIEF - Oral, ity of (SIMETHICON 20:03: PC+HSPRN, T [...] Yes 4mg 4 mg, Slow Univers (ZOFRAN - IV Push, ity of (PF)) 20:03: Q8HPRN, [place] injection 4 26 Starting Medi judy mg Mon Branch 07/26/19 at 1503, Until Discontinu ed, Routine, Nausea and Vomiting (N/V) docusate 2020-0 Yes 240mg 240 mg, Unive rs calcium [...] Until Discontinu ed, Routine, Constipati on benzocaine- Yes Topical, Un manav menthol 07-25 PRN, [...] Med ical liquid 650 07/26/19 at Bra nch mg 1215, Routine LR 1000 mL 2019- [...] until the liter is complete.& nbsp;&nbsp ;Notify Manager Unit if uterine resting tone exceeds 25 mmHg at any time during the amnioinfus ion. Obst etrics (NATALI) Aminoinfus ion Orders
butorphanol 2019- 2020- No 1mg 1 mg, IV U nivers (STADOL) 07-25 Push, ity of injection 1 05:00: 04:08 ONCE, 1 [place] mg 00 :00 dose, Mon Medical 07/26/19 at Branch 0000, Routine proMETHazin 2020- No 25mg 25 mg, IV Univers e 07-25 Piggyback, ity of (PHENERGAN) 03:14: 20:03 Q4HPRN, [place] 25 mg in 00 :32 Starting Medical NaCl 0.9% [facility] (NS) 50 mL 07/25/19 at IV 2214, piggyback Until 07/26/19 at 1503, Routine, Nausea and Vomiting (N/V) hydralAZINE 2019-0 2020- No 10mg 10 mg, Uni vers (APRESOLINE 07-25 Intravenou i ty of ) injection 01:30: 00:07 s, ONCE [place] 10 mg 00 :00 NOW, 1 Medical dose, [facility] 07/25/19 at 2030, Routine LR 1000 mL 2019-0 2020- No 2mU/min 2-40 Uni vers + [...] 1904, Until 07/26/19 at 1503, Routine labetalol 2019- 2020- No 20mg 20 mg, Unive rs (NORMODYNE) 07-24 Slow IV ity of injection 23:17: 23:19 Push, [place] 20 mg 00 :00 ONCE, 1 Medical dose, [place] 07/25/19 at 1830, KARIS D5W 0.45% 2019-0 2020- No 1000mL at 100 Uni vers NaCl 07-24 mL/hr, ity of (1/2NS) IV 20:15: 20:03 1,000 mL, [place] infusion 00 :32 IV Medical 1,000 mL Infusion, Branch CONTINUOUS , Starting 07/25/19 at 1515, Until 07/26/19 at 1503, KARIS magnesium 2020-0 2020- No 2g/h 2 g/hr (25 U nivers sulfate in 07-24 mL/hr), at it y of LR 40 20:15: 08:14 25 mL/hr, [place] gram/500 mL 00 :00 IV Medical IV Solution Infusion, Bra nch CONTINUOUS , Starting 07/25/19 at 1515, Until 07/26/19 at 0314, KARIS Blood 2020-0 Yes [id number] Use as Univer s Pressure 4-02 directed ity of Monitor 00:00: [place] (BLOOD 00 Medical PRESSURE Branch KIT) Kit Blood 2020-0 Yes [id number] Use as Univer s Pressure 4-02 directed ity of Monitor 00:00: [place] (BLOOD 00 Medical PRESSURE Branch KIT) Kit Blood 2020-0 Yes [id number] Use as Univer s Pressure 4-02 directed ity of Monitor 00:00: [place] (BLOOD 00 Medical PRESSURE Branch KIT) Kit Blood 2020-0 2020- No [id number] Use as Unive rs Pressure 4-02 04-15 directed ity of Monitor 00:00: 00:00 [place] (BLOOD 00 :00 Medical PRESSURE Branch KIT) Kit MELATONIN 2020-0 Yes Take by Unive rs ORAL 3-15 mouth. ity of 05:33: [place] [address] Medical Branch MELATONIN 2020-0 Yes Take by Unive rs ORAL 3-15 mouth. ity of 05:33: [address] MELATONIN 2020-0 Yes Take by Unive rs ORAL 3-15 mouth. ity of 05:33: [place] [address] Medical Branch MELATONIN 2020-0 Yes Take by Unive rs ORAL 3-15 mouth. ity of 05:33: [address] Branch MELATONIN 2020-0 Yes Take by Unive rs ORAL 3-15 mouth. ity of 05:33: [address] MELATONIN 2020-0 Yes Take by Unive rs ORAL 3-15 mouth. ity of 05:33: [address] MELATONIN 2020-0 Yes Take by Unive rs ORAL 3-15 mouth. ity of 05:33: [place] [address] Medical Branch cefTRIAXone 2020-0 2020- No 1000mg 1,000 mg, Univers (ROCEPHIN) 2-10 02-10 IV ity of 1,000 mg in 03:30: 03:05 [place], [place] NaCl 0.9% 00 :00 ONCE, 1 Medical (NS) 50 mL dose, [place] Bran ch MINI-BAG 05/23/19 at 2130, 50 mL
Reas on for Anti-Infec tive: Documented Infection< br>Documen elisabeth Infection Site: Urine
D uration of Therapy: Other (see Comments) proMETHazin 2020-0 Yes [id number] 25mg Take 1 Univers e 25 mg 2-09 tablet by ity of tablet 00:00: mouth [place] 00 every 6 Medical (six) Branch hours as needed for Nausea and Vomiting (N/V). proMETHazin 2020-0 Yes [id number] 25mg Take 1 Univers e 25 mg 2-09 tablet by ity of tablet 00:00: mouth [place] 00 every 6 Medical (six) Branch hours as needed for Nausea and Vomiting (N/V). proMETHazin 2020-0 Yes [id number] 25mg Take 1 Univers e 25 mg 2-09 tablet by ity of tablet 00:00: mouth [place] 00 every 6 Medical (six) Branch hours as needed for Nausea and Vomiting (N/V). proMETHazin 2020-0 Yes [id number] 25mg Take 1 Univers e 25 mg 2-09 tablet by ity of tablet 00:00: mouth [place] 00 every 6 Medical (six) Branch hours as needed for Nausea and Vomiting (N/V). proMETHazin 2020-0 Yes [id number] 25mg Take 1 Univers e 25 mg 2-09 tablet by ity of tablet 00:00: mouth [place] 00 every 6 Medical (six) Branch hours as needed for Nausea and Vomiting (N/V). proMETHazin 2020-0 Yes [id number] 25mg Take 1 Univers e 25 mg 2-09 tablet by ity of tablet 00:00: mouth [place] 00 every 6 Medical (six) Branch hours as needed for Nausea and Vomiting (N/V). proMETHazin 2020-0 Yes [id number] 25mg Take 1 Univers e 25 mg 2-09 tablet by ity of tablet 00:00: mouth [place] 00 every 6 Medical (six) Branch hours as needed for Nausea and Vomiting (N/V). proMETHazin 2020-0 Yes [id number] 25mg Take 1 Univers e 25 mg 2-09 tablet by ity of tablet 00:00: mouth [place] 00 every 6 Medical (six) Branch hours as needed for Nausea and Vomiting (N/V). proMETHazin 2020-0 Yes [id number] 25mg Take 1 Univers e 25 mg 2-09 tablet by ity of tablet 00:00: mouth [place] 00 every 6 Medical (six) Branch hours as needed for Nausea and Vomiting (N/V). proMETHazin 2020-0 Yes [id number] 25mg Take 1 Univers e 25 mg 2-09 tablet by ity of tablet 00:00: mouth [place] 00 every 6 Medical (six) Branch hours as needed for Nausea and Vomiting (N/V). proMETHazin 2020-0 Yes [id number] 25mg Take 1 Univers e 25 mg 2-09 tablet by ity of tablet 00:00: mouth [place] 00 every 6 Medical (six) Branch hours as needed for Nausea and Vomiting (N/V). proMETHazin 2020-0 Yes [id number] 25mg Take 1 Univers e 25 mg 2-09 tablet by ity of tablet 00:00: mouth [place] 00 every 6 Medical (six) Branch hours as needed for Nausea and Vomiting (N/V). proMETHazin 2020-0 Yes [id number] 25mg Take 1 Univers e 25 mg 2-09 tablet by ity of tablet 00:00: mouth [place] 00 every 6 Medical (six) Branch hours as needed for Nausea and Vomiting (N/V). proMETHazin 2020-0 Yes [id number] 25mg Take 1 Univers e 25 mg 2-09 tablet by ity of tablet 00:00: mouth [place] 00 every 6 Medical (six) Branch hours as needed for Nausea and Vomiting (N/V). proMETHazin 2020-0 Yes [id number] 25mg Take 1 Univers e 25 mg 2-09 tablet by ity of tablet 00:00: mouth [place] 00 every 6 Medical (six) Branch hours as needed for Nausea and Vomiting (N/V). proMETHazin 2020-0 2020- No [id number] 25mg Take 1 Univers e 25 mg 2-09 04-12 tablet by ity of tablet 00:00: 00:00 mouth [place] 00 :00 every 6 Medical (six) Branch hours as needed for Nausea and Vomiting (N/V). promethazin 2020-0 2020- No [id number] 25mg Take 20 mL Univers e 6.25 mg/5 2-09 03-01 by mouth ity of mL solution 00:00: 05:59 every 6 [place] 00 :00 (six) Medical hours as Branch needed for Nausea and Vomiting (N/V) for up to 20 days. promethazin 2020-0 2020- No [id number] 25mg Take 20 mL Univers e 6.25 mg/5 2-09 03-01 by mouth ity of mL solution 00:00: 05:59 every 6 [place] 00 :00 (six) Medical hours as Branch needed for Nausea and Vomiting (N/V) for up to 20 days. promethazin 2020-0 2020- No [id number] 25mg Take 20 mL Univers e 6.25 mg/5 05-2301 by mouth ity of mL solution 00:00: 05:59 every 6 [place] 00 :00 (six) Medical hours as Branch needed for Nausea and Vomiting (N/V) for up to 20 days. promethazin 2020-0 2020- No [id number] 25mg Take 20 mL Univers e 6.25 mg/5 05-23 by mouth ity of mL solution 00:00: 05:59 every 6 [place] 00 :00 (six) Medical hours as Branch needed for Nausea and Vomiting (N/V) for up to 20 days. promethazin 2020-0 2020- No [id number] 25mg Take 20 mL Univers e 6.25 mg/5 05-23 by mouth ity of mL solution 00:00: 05:59 every 6 [place] 00 :00 (six) Medical hours as Branch needed for Nausea and Vomiting (N/V) for up to 20 days. cephALEXin 2020-0 2020- No [id number] 500mg Take 10 mL Univers 250 mg/5 mL 05-2320 by mouth 3 i ty of suspension 00:00: 05:59 (three) [place] as 00 :00 times Medical daily for Branch 10 days. cephALEXin 2020-0 2020- No [id number] 500mg Take 10 mL Univers 250 mg/5 mL 05-2320 by mouth 3 i ty of suspension 00:00: 05:59 (three) [place] 00 :00 times Medical daily for Branch 10 days. cephALEXin 2020-0 2020- No [id number] 500mg Take 10 mL Univers 250 mg/5 mL 05-23-20 by mouth 3 i ty of suspension 00:00: 05:59 (three) [place] 00 :00 times Medical daily for Branch 10 days. cephALEXin 2020-0 2020- No [id number] 500mg Take 10 mL Univers 250 mg/5 mL 05-23-20 by mouth 3 i ty of suspension 00:00: 05:59 (three) [place] 00 :00 times Medical daily for Branch 10 days. cephALEXin 2020-0 2020- No [id number] 500mg Take 10 mL Univers 250 mg/5 mL 05-23 by mouth 3 i ty of suspension 00:00: 05:59 (three) [place] 00 :00 times Medical daily for Branch 10 days. cephALEXin 2020- No [id number] 500mg Take 1 Univers (KEFLEX) 05-23 capsule by ity of 500 mg 00:00: 00:00 mouth 3 [place] capsule 00 :00 (three) Medical times Branch daily for 10 days. MELATONIN 2018-04 Yes Take by Unive rs ORAL 0-03 mouth. ity of 14:36: [address] MELATONIN 2018-04 Yes Take by Unive rs ORAL 0-03 mouth. ity of 14:36: [address] MELATONIN 2018-04 Yes Take by Unive rs ORAL 0-03 mouth. ity of 14:36: [address] MELATONIN 2018-04 Yes Take by Unive rs ORAL 0-03 mouth. ity of 14:36: [address] MELATONIN 2018-04 Yes Take by Unive rs ORAL 0-03 mouth. ity of 14:36: [address] MELATONIN 2018-04 Yes Take by Unive rs ORAL 0-03 mouth. ity of 14:36: [address] MELATONIN 2018-04 Yes Take by Unive rs ORAL 0-03 mouth. ity of 14:36: [address] MELATONIN 2018-04 Yes Take by Unive rs ORAL 0-03 mouth. ity of 14:36: [address] MELATONIN 2018-04 Yes Take by Unive rs ORAL 0-03 mouth. ity of 14:36: [address] 2018-04 Yes [id number] 1{packe Take 1 Univers vit 0-03 t} Packet by ity of 33-iron-fol 00:00: mouth [place] ic-dha 00 daily. Medical (SELECT-OB Branch + DHA) 29 mg iron-1 mg -250 mg combo pack 2018-04 Yes [id number] 1{packe Take 1 Univers vit 0-03 t} Packet by ity of 33-iron-fol 00:00: mouth [place] ic-dha 00 daily. Medical (SELECT-OB Branch + DHA) 29 mg iron-1 mg -250 mg combo pack 2018-04 Yes [id number] 1{packe Take 1 Univers vit 0-03 t} Packet by ity of 33-iron-fol 00:00: mouth [place] ic-dha 00 daily. Medical (SELECT-OB Branch + DHA) 29 mg iron-1 mg -250 mg combo pack 2018-04 Yes [id number] 1{packe Take 1 Univers vit 0-03 t} Packet by ity of 33-iron-fol 00:00: mouth [place] ic-dha 00 daily. Medical (SELECT-OB Branch + DHA) 29 mg iron-1 mg -250 mg combo pack 2018-04 Yes [id number] 1{packe Take 1 Univers vit 0-03 t} Packet by ity of 33-iron-fol 00:00: mouth [place] ic-dha 00 daily. Medical (SELECT-OB Branch + DHA) 29 mg iron-1 mg -250 mg combo pack 2018-04 Yes [id number] 1{packe Take 1 Univers vit 0-03 t} Packet by ity of 33-iron-fol 00:00: mouth [place] ic-dha 00 daily. Medical (SELECT-OB Branch + DHA) 29 mg iron-1 mg -250 mg combo pack 2018-04 Yes [id number] 1{packe Take 1 Univers vit 0-03 t} Packet by ity of 33-iron-fol 00:00: mouth [place] ic-dha 00 daily. Medical (SELECT-OB Branch + DHA) 29 mg iron-1 mg -250 mg combo pack 2018-04 Yes [id number] 1{packe Take 1 Univers vit 0-03 t} Packet by ity of 33-iron-fol 00:00: mouth [place] ic-dha 00 daily. Medical (SELECT-OB Branch + DHA) 29 mg iron-1 mg -250 mg combo pack 2018-04 Yes [id number] 1{packe Take 1 Univers vit 0-03 t} Packet by ity of 33-iron-fol 00:00: mouth [place] ic-dha 00 daily. Medical (SELECT-OB Branch + DHA) 29 mg iron-1 mg -250 mg combo pack 2018-04 Yes [id number] 1{packe Take 1 Univers vit 0-03 t} Packet by ity of 33-iron-fol 00:00: mouth [place] ic-dha 00 daily. Medical (SELECT-OB Branch + DHA) 29 mg iron-1 mg -250 mg combo pack 2018-04 Yes [id number] 1{packe Take 1 Univers vit 0-03 t} Packet by ity of 33-iron-fol 00:00: mouth [place] ic-dha 00 daily. Medical (SELECT-OB Branch + DHA) 29 mg iron-1 mg -250 mg combo pack 2018-04 Yes [id number] 1{packe Take 1 Univers vit 0-03 t} Packet by ity of 33-iron-fol 00:00: mouth [place] ic-dha 00 daily. Medical (SELECT-OB Branch + DHA) 29 mg iron-1 mg -250 mg combo pack 2018-04 Yes [id number] 1{packe Take 1 Univers vit 0-03 t} Packet by ity of 33-iron-fol 00:00: mouth [place] ic-dha 00 daily. Medical (SELECT-OB Branch + DHA) 29 mg iron-1 mg -250 mg combo pack 2018-04 Yes [id number] 1{packe Take 1 Univers vit 0-03 t} Packet by ity of 33-iron-fol 00:00: mouth [place] ic-dha 00 daily. Medical (SELECT-OB Branch + DHA) 29 mg iron-1 mg -250 mg combo pack 2018-04 Yes [id number] 1{packe Take 1 Univers vit 0-03 t} Packet by ity of 33-iron-fol 00:00: mouth [place] ic-dha 00 daily. Medical (SELECT-OB Branch + DHA) 29 mg iron-1 mg -250 mg combo pack 2018-04 Yes [id number] 1{packe Take 1 Univers vit 0-03 t} Packet by ity of 33-iron-fol 00:00: mouth [place] ic-dha 00 daily. Medical (SELECT-OB Branch + DHA) 29 mg iron-1 mg -250 mg combo pack 2018-04 2020- No [id number] 1{packe Take 1 Univers vit 0-03 04-15 t} Packet by ity of 33-iron-fol 00:00: 00:00 mouth [place] ic-dha 00 :00 daily. Medical (SELECT-OB Branch + DHA) 29 mg iron-1 mg -250 mg combo pack mupirocin 2 2019- No [id number] Apply to Univers % ointment 11-26 area(s) 3 ity of 00:00: 04:59 (three) [place] 00 :00 times Medical daily for Branch 7 days. mupirocin 2 2019- No [id number] Apply to Univers % ointment 11-26 area(s) 3 ity of 00:00: 04:59 (three) [place] 00 :00 times Medical daily for Branch 7 days. mupirocin 2019- No [id number] Apply to Univers (BACTROBAN) 11-25 area(s) 3 it y of 2 % cream 00:00: 04:59 (three) [place] 00 :00 times Medical daily for Branch 7 days. mupirocin 2019- No [id number] Apply to Univers (BACTROBAN) 11-25 area(s) 3 it y of 2 % cream 00:00: 04:59 (three) [place] 00 :00 times Medical daily for Branch 7 days. mupirocin 2018- No [id number] Apply to Univers (BACTROBAN) 11-25 area(s) 3 it y of 2 % cream 00:00: 04:59 (three) [place] 00 :00 times Medical daily for Branch 7 days. mupirocin 2019- No [id number] Apply to Univers (BACTROBAN) 11-25 area(s) 3 it y of 2 % cream 00:00: 00:00 (three) [place] 00 :00 times Medical daily for Branch 7 days. azithromyci 2017- Yes Take 500 Un manav n 0-29 mg po ity of (ZITHROMAX) 00:00: today then [place] 200 mg/5 mL 00 250 mg po Med ical suspension qd on days [facility] #2-#5 azithromyci 2017- 2019- No Take 500 U nivers n 0-29 08-14 mg po ity of (ZITHROMAX) 00:00: 00:00 today then [place] 200 mg/5 mL 00 :00 250 mg po Med ical suspension qd on days [facility] #2-#5 azithromyci 2017- 2019- No Take 500 U nivers n 0-29 08-14 mg po ity of (ZITHROMAX) 00:00: 00:00 today then [place] 200 mg/5 mL 00 :00 250 mg po Med ical suspension qd on days [facility] #2-#5 metronidazo metronidazo No metronidaz [...] Known No [facility] Medications Medications [facility] No known No [facility] known No [facility] No [facility] No [facility] No [facility] No [facility] No [facility] No [facility] No [facility] No [facility] No known No [facility] No known No [facility] medications [facility] Immunizations Ordered Immunization Filled Immunization Date Status Commen ts Source Name Name TDAP (ADACEL) VACCINE 2019-06-16 Completed Uni versity of 00:00:00 [facility] TDAP (ADACEL) VACCINE 2019-06-16 Completed Uni versity of 00:00:00 [facility] TDAP (ADACEL) VACCINE 2019-06-16 Completed Uni versity of 00:00:00 [facility] TDAP (ADACEL) VACCINE 2019-06-16 Completed Uni versity of 00:00:00 [facility] TDAP (ADACEL) VACCINE 2019-06-16 Completed Uni versity of 00:00:00 [facility] TDAP (ADACEL) VACCINE 2019-06-16 Completed Uni versity of 00:00:00 [facility] TDAP (ADACEL) VACCINE 2019-06-16 Completed Uni versity of 00:00:00 [facility] TDAP (ADACEL) VACCINE 2019-06-16 Completed Uni versity of 00:00:00 [facility] TDAP (ADACEL) VACCINE 2019-06-16 Completed Uni versity of 00:00:00 [facility] TDAP (ADACEL) VACCINE 2019-06-16 Completed Uni versity of 00:00:00 [facility] TDAP (ADACEL) VACCINE 2019-06-16 Completed Uni [...] VACCINE 2019-06-16 Completed Uni versity of 00:00:00 [facility] Influenza Virus 2019-01-14 Completed Universit y [...] Meningococcal 2017-09-11 Completed University of Polysaccharide 00:00:00 [facility] judy (groups A, C, Y and Branc h W-135) conjugate vaccine (MCV4P) Meningococcal B, OMV 2017-09-11 Completed Univ ersity of 00:00:00 [facility] Meningococcal 2017-09-11 Completed University of Polysaccharide 00:00:00 [place] Medi judy (groups A, C, Y and Branc h W-135) conjugate vaccine (MCV4P) Meningococcal B, OMV 2017-09-11 Completed Univ ersity of 00:00:00 [facility] Meningococcal 2017-09-11 Completed University of Polysaccharide 00:00:00 [place] Medi judy (groups A, C, Y and Branc h W-135) conjugate vaccine (MCV4P) Meningococcal 2017-09-11 Completed University of Polysaccharide 00:00:00 [place] Medi judy (groups A, C, Y and Branc h W-135) conjugate vaccine (MCV4P) Meningococcal B, OMV 2017-09-11 Completed Univ ersity of 00:00:00 [facility] Meningococcal B, OMV 2017-09-11 Completed Univ ersity of 00:00:00 [facility] Meningococcal 2017-09-11 Completed University of Polysaccharide 00:00:00 [place] Medi judy (groups A, C, Y and Branc h W-135) conjugate vaccine (MCV4P) Meningococcal B, OMV 2017-09-11 Completed Univ ersity of 00:00:00 [facility] Meningococcal 2017-09-11 Completed University of Polysaccharide 00:00:00 [place] Medi judy (groups A, C, Y and Branc h W-135) conjugate vaccine (MCV4P) Meningococcal B, OMV 2017-09-11 Completed Univ ersity of 00:00:00 [facility] Meningococcal 2017-09-11 Completed University of Polysaccharide 00:00:00 [place] Medi judy (groups A, C, Y and Branc h W-135) conjugate vaccine (MCV4P) Meningococcal B, OMV 2017-09-11 Completed Univ ersity of 00:00:00 [facility] Meningococcal 2017-09-11 Completed University of Polysaccharide 00:00:00 [place] Medi judy (groups A, C, Y and Branc h W-135) conjugate vaccine (MCV4P) Meningococcal B, OMV 2017-09-11 Completed Univ ersity of 00:00:00 [facility] Meningococcal 2017-09-11 Completed University of Polysaccharide 00:00:00 [place] Medi judy (groups A, C, Y and Branc h W-135) conjugate vaccine (MCV4P) Meningococcal B, OMV 2017-09-11 Completed Univ ersity of 00:00:00 [facility] Meningococcal 2017-09-11 Completed University of Polysaccharide 00:00:00 [place] Medi judy (groups A, C, Y and Branc h W-135) conjugate vaccine (MCV4P) Meningococcal B, OMV 2017-09-11 Completed Univ ersity of 00:00:00 [facility] Meningococcal 2017-09-11 Completed University of Polysaccharide 00:00:00 [place] Medi judy (groups A, C, Y and Branc h W-135) conjugate vaccine (MCV4P) Meningococcal B, OMV 2017-09-11 Completed Univ ersity of 00:00:00 [facility] Meningococcal 2017-09-11 Completed University of Polysaccharide 00:00:00 [place] Medi judy (groups A, C, Y and Branc h W-135) conjugate vaccine (MCV4P) Meningococcal B, OMV 2017-09-11 Completed Univ ersity of 00:00:00 [facility] Meningococcal 2017-09-11 Completed University of Polysaccharide 00:00:00 [place] Medi judy (groups A, C, Y and Branc h W-135) conjugate vaccine (MCV4P) Meningococcal B, OMV 2017-09-11 Completed Univ ersity of 00:00:00 [facility] Meningococcal 2017-09-11 Completed University of Polysaccharide 00:00:00 [place] Medi judy (groups A, C, Y and Branc h W-135) conjugate vaccine (MCV4P) Meningococcal B, OMV 2017-09-11 Completed Univ ersity of 00:00:00 [facility] Meningococcal 2017-09-11 Completed University of Polysaccharide 00:00:00 [place] Medi judy (groups A, C, Y and Branc h W-135) conjugate vaccine (MCV4P) Meningococcal B, OMV 2017-09-11 Completed Univ ersity of 00:00:00 [facility] Meningococcal 2017-09-11 Completed University of Polysaccharide 00:00:00 [place] Medi judy (groups A, C, Y and Branc h W-135) conjugate vaccine (MCV4P) Meningococcal B, OMV 2017-09-11 Completed Univ ersity of 00:00:00 [facility] Meningococcal 2017-09-11 Completed University of Polysaccharide 00:00:00 [place] Medi judy (groups A, C, Y and Branc h W-135) conjugate vaccine (MCV4P) Meningococcal B, OMV 2017-09-11 Completed Univ ersity of 00:00:00 [facility] Meningococcal 2017-09-11 Completed University of Polysaccharide 00:00:00 [place] Medi judy (groups A, C, Y and Branc h W-135) conjugate vaccine (MCV4P) Meningococcal B, OMV 2017-09-11 Completed [facility] 00:00:00 [facility] Meningococcal 2017-09-11 Completed [facility] Polysaccharide 00:00:00 [place] [facility] (groups A, C, Y and Branc h W-135) conjugate vaccine (MCV4P) Meningococcal B, OMV 2017-09-11 Completed [facility] 00:00:00 [facility] Meningococcal 2017-09-11 Completed [facility] Polysaccharide 00:00:00 [place] [facility] (groups A, C, Y and Branc h W-135) conjugate vaccine (MCV4P) Meningococcal B, OMV 2017-09-11 Completed [facility] 00:00:00 [facility] Meningococcal 2017-09-11 Completed [facility] Polysaccharide 00:00:00 [facility] (groups A, C, Y and Branc h W-135) conjugate vaccine (MCV4P) Meningococcal B, OMV 2017-09-11 Completed [facility] 00:00:00 [facility] Meningococcal 2017-09-11 Completed [facility] Polysaccharide 00:00:00 [facility] (groups A, C, Y and Branc h W-135) conjugate vaccine (MCV4P) Meningococcal B, OMV 2017-09-11 Completed [facility] 00:00:00 [facility] Meningococcal 2017-09-11 Completed [facility] Polysaccharide 00:00:00 [facility] (groups A, C, Y and Branc h W-135) conjugate vaccine (MCV4P) Meningococcal B, OMV 2017-09-11 Completed [facility] 00:00:00 [facility] Meningococcal 2017-09-11 Completed [facility] Polysaccharide 00:00:00 [facility] (groups A, C, Y and Branc h W-135) conjugate vaccine (MCV4P) Meningococcal B, OMV 2017-09-11 Completed [facility] 00:00:00 [facility] Meningococcal 2017-09-11 Completed [facility] Polysaccharide 00:00:00 [facility] (groups A, C, Y and Branc h W-135) conjugate vaccine (MCV4P) Meningococcal B, OMV 2017-09-11 Completed [facility] 00:00:00 [facility] Meningococcal 2017-09-11 Completed [facility] Polysaccharide 00:00:00 [facility] (groups A, C, Y and Branc h W-135) conjugate vaccine (MCV4P) Meningococcal B, OMV 2017-09-11 Completed [facility] 00:00:00 [facility] Meningococcal 2017-09-11 Completed [facility] Polysaccharide 00:00:00 [place] [facility] (groups A, C, Y and Branc h W-135) conjugate vaccine (MCV4P) Meningococcal B, OMV 2017-09-11 Completed [facility] 00:00:00 [facility] Meningococcal 2017-09-11 Completed [facility] Polysaccharide 00:00:00 [facility] (groups A, C, Y and Branc h W-135) conjugate vaccine (MCV4P) Meningococcal B, OMV 2017-09-11 Completed [facility] 00:00:00 [facility] Meningococcal 2017-09-11 Completed [facility] of Polysaccharide 00:00:00 [facility] judy (groups A, C, Y and Branc h W-135) conjugate vaccine (MCV4P) Meningococcal B, OMV 2017-09-11 Completed [facility] 00:00:00 [facility] Meningococcal 2017-09-11 Completed [facility] of Polysaccharide 00:00:00 [facility] judy (groups A, C, Y and Branc h W-135) conjugate vaccine (MCV4P) Meningococcal B, OMV 2017-09-11 Completed [facility] 00:00:00 [facility] Meningococcal 2017-09-11 Completed [facility] Polysaccharide 00:00:00 [facility] (groups A, C, Y and Branc h W-135) conjugate vaccine (MCV4P) Meningococcal B, OMV 2017-09-11 Completed [facility] 00:00:00 [facility] Meningococcal 2017-09-11 Completed [facility] Polysaccharide 00:00:00 [place] [facility] (groups A, C, Y and Branc h W-135) conjugate vaccine (MCV4P) Meningococcal B, OMV 2017-09-11 Completed [facility] 00:00:00 [facility] Meningococcal 2017-09-11 Completed [facility] Polysaccharide 00:00:00 [place] [facility] (groups A, C, Y and Branc h W-135) conjugate vaccine (MCV4P) Meningococcal B, OMV 2017-09-11 Completed [facility] 00:00:00 [facility] Meningococcal 2017-09-11 Completed [facility] Polysaccharide 00:00:00 [place] [facility] (groups A, C, Y and Branc h W-135) conjugate vaccine (MCV4P) Meningococcal B, OMV 2017-09-11 Completed [facility] 00:00:00 [facility] Meningococcal 2017-09-11 Completed [facility] Polysaccharide 00:00:00 [place] [facility] (groups A, C, Y and Branc h W-135) conjugate vaccine (MCV4P) Meningococcal B, OMV 2017-09-11 Completed [facility] 00:00:00 [facility] Meningococcal 2017-09-11 Completed [facility] Polysaccharide 00:00:00 [facility] (groups A, C, Y and Branc h W-135) conjugate vaccine (MCV4P) Meningococcal B, OMV 2017-09-11 Completed [facility] 00:00:00 [facility] Meningococcal 2017-09-11 Completed [facility] Polysaccharide 00:00:00 [place] [facility] (groups A, C, Y and Branc h W-135) conjugate vaccine (MCV4P) Meningococcal B, OMV 2017-09-11 Completed [facility] 00:00:00 [facility] Meningococcal 2017-09-11 Completed [facility] Polysaccharide 00:00:00 [place] [facility] (groups A, C, Y and Branc h W-135) conjugate vaccine (MCV4P) Meningococcal B, OMV 2017-09-11 Completed [facility] 00:00:00 [facility] Meningococcal 2017-09-11 Completed [facility] Polysaccharide 00:00:00 [place] [facility] (groups A, C, Y and Branc h W-135) conjugate vaccine (MCV4P) Meningococcal B, OMV 2017-09-11 Completed [facility] 00:00:00 [facility] Meningococcal 2017-09-11 Completed [facility] Polysaccharide 00:00:00 [place] [facility] (groups A, C, Y and Branc h W-135) conjugate vaccine (MCV4P) Meningococcal B, OMV 2017-09-11 Completed [facility] 00:00:00 [facility] Meningococcal 2017-09-11 Completed [facility] Polysaccharide 00:00:00 [place] [facility] (groups A, C, Y and Branc h W-135) conjugate vaccine (MCV4P) Meningococcal B, OMV 2017-09-11 Completed [facility] 00:00:00 [facility] Meningococcal 2017-09-11 Completed [facility] Polysaccharide 00:00:00 [place] [facility] (groups A, C, Y and Branc h W-135) conjugate vaccine (MCV4P) Meningococcal B, OMV 2017-09-11 Completed [facility] 00:00:00 [facility] Meningococcal 2017-09-11 Completed [facility] Polysaccharide 00:00:00 [facility] (groups A, C, Y and Branc h W-135) conjugate vaccine (MCV4P) Meningococcal B, OMV 2017-09-11 Completed [facility] 00:00:00 [facility] Meningococcal 2017-09-11 Completed [facility] Polysaccharide 00:00:00 [place] [facility] (groups A, C, Y and Branc h W-135) conjugate vaccine (MCV4P) Meningococcal B, OMV 2017-09-11 Completed [facility] 00:00:00 [facility] Meningococcal 2017-09-11 Completed [facility] Polysaccharide 00:00:00 [facility] (groups A, C, Y and Branc h W-135) conjugate vaccine (MCV4P) Meningococcal B, OMV 2017-09-11 Completed [facility] 00:00:00 [facility] Meningococcal 2017-09-11 Completed [facility] Polysaccharide 00:00:00 [facility] (groups A, C, Y and Branc h W-135) conjugate vaccine (MCV4P) Meningococcal B, OMV 2017-09-11 Completed [facility] 00:00:00 [facility] Meningococcal 2017-09-11 Completed [facility] Polysaccharide 00:00:00 [facility] (groups A, C, Y and Branc h W-135) conjugate vaccine (MCV4P) Meningococcal B, OMV 2017-09-11 Completed [facility] 00:00:00 [facility] Meningococcal 2017-09-11 Completed [facility] Polysaccharide 00:00:00 [facility] (groups A, C, Y and Branc h W-135) conjugate vaccine (MCV4P) Meningococcal B, OMV 2017-09-11 Completed [facility] 00:00:00 [facility] Meningococcal 2017-09-11 Completed [facility] Polysaccharide 00:00:00 [facility] (groups A, C, Y and Branc h W-135) conjugate vaccine (MCV4P) Meningococcal B, OMV 2017-09-11 Completed [facility] 00:00:00 [facility] Meningococcal 2017-09-11 Completed [facility] Polysaccharide 00:00:00 [facility] (groups A, C, Y and Branc h W-135) conjugate vaccine (MCV4P) Meningococcal B, OMV 2017-09-11 Completed [facility] 00:00:00 [facility] Meningococcal 2017-09-11 Completed [facility] Polysaccharide 00:00:00 [facility] (groups A, C, Y and Branc h W-135) conjugate vaccine (MCV4P) Meningococcal B, OMV 2017-09-11 Completed [facility] 00:00:00 [facility] Meningococcal 2017-09-11 Completed [facility] Polysaccharide 00:00:00 [facility] (groups A, C, Y and Branc h W-135) conjugate vaccine (MCV4P) Meningococcal B, OMV 2017-09-11 Completed [facility] 00:00:00 [facility] Meningococcal 2017-09-11 Completed [facility] Polysaccharide 00:00:00 [facility] (groups A, C, Y and Branc h W-135) conjugate vaccine (MCV4P) Meningococcal B, OMV 2017-09-11 Completed [facility] 00:00:00 [facility] Meningococcal 2017-09-11 Completed [facility] Polysaccharide 00:00:00 [facility] (groups A, C, Y and Branc h W-135) conjugate vaccine (MCV4P) Meningococcal B, OMV 2017-09-11 Completed [facility] 00:00:00 [facility] Meningococcal 2017-09-11 Completed [facility] Polysaccharide 00:00:00 [facility] (groups A, C, Y and Branc h W-135) conjugate vaccine (MCV4P) Meningococcal B, OMV 2017-09-11 Completed [facility] 00:00:00 [facility] Meningococcal 2017-09-11 Completed [facility] Polysaccharide 00:00:00 [place] [facility] (groups A, C, Y and Branc h W-135) conjugate vaccine (MCV4P) Meningococcal B, OMV 2017-09-11 Completed [facility] 00:00:00 [facility] Meningococcal 2017-09-11 Completed [facility] Polysaccharide 00:00:00 [place] [facility] (groups A, C, Y and Branc h W-135) conjugate vaccine (MCV4P) Meningococcal B, OMV 2017-09-11 Completed [facility] 00:00:00 [facility] Meningococcal Vaccine 2012-12-08 Completed [facility] vers[facility] 00:00:00 [facility] Tdap 2012-12-08 Completed [facility] of 00:00:00 [facility] Tdap 2012-12-08 Completed [facility] 00:00:00 [facility] Meningococcal Vaccine 2012-12-08 Completed [facility] vers[facility] 00:00:00 [facility] Tdap 2012-12-08 Completed [facility] 00:00:00 [facility] Meningococcal Vaccine 2012-12-08 Completed [facility] vers[facility] of 00:00:00 [facility] Tdap 2012-12-08 Completed [facility] 00:00:00 [facility] Meningococcal Vaccine 2012-12-08 Completed [facility] vers[facility] 00:00:00 [facility] Tdap 2012-12-08 Completed [facility] 00:00:00 [facility] Meningococcal Vaccine 2012-12-08 Completed [facility] vers[facility] 00:00:00 [facility] Tdap 2012-12-08 Completed [facility] 00:00:00 [facility] Meningococcal Vaccine 2012-12-08 Completed [facility] vers[facility] of 00:00:00 [facility] Tdap 2012-12-08 Completed [facility] 00:00:00 [facility] Meningococcal Vaccine 2012-12-08 Completed [facility] vers[facility] of 00:00:00 [facility] Tdap 2012-12-08 Completed [facility] 00:00:00 [facility] Meningococcal Vaccine 2012-12-08 Completed [facility] vers[facility] 00:00:00 [facility] Tdap 2012-12-08 Completed [facility] 00:00:00 [facility] Meningococcal Vaccine 2012-12-08 Completed [facility] vers[facility] 00:00:00 [facility] Meningococcal Vaccine 2012-12-08 Completed [facility] vers[facility] of 00:00:00 [facility] Tdap 2012-12-08 Completed [facility] 00:00:00 [facility] Meningococcal Vaccine 2012-12-08 Completed [facility] vers[facility] 00:00:00 [facility] Tdap 2012-12-08 Completed [facility] 00:00:00 [facility] Tdap 2012-12-08 Completed [facility] 00:00:00 [facility] Meningococcal Vaccine 2012-12-08 Completed [facility] vers[facility] 00:00:00 [facility] Tdap 2012-12-08 Completed [facility] 00:00:00 [facility] Meningococcal Vaccine 2012-12-08 Completed [facility] vers[facility] 00:00:00 [facility] Tdap 2012-12-08 Completed [facility] 00:00:00 [facility] Meningococcal Vaccine 2012-12-08 Completed [facility] vers[facility] 00:00:00 [facility] Tdap 2012-12-08 Completed [facility] 00:00:00 [facility] Meningococcal Vaccine 2012-12-08 Completed [facility] vers[facility] of 00:00:00 [facility] Tdap 2012-12-08 Completed [facility] 00:00:00 [facility] Meningococcal Vaccine 2012-12-08 Completed [facility] vers[facility] 00:00:00 [facility] TDAP 2012-12-08 Completed [facility] 00:00:00 [facility] Meningococcal Vaccine 2012-12-08 Completed [facility] 00:00:00 [facility] TDAP 2012-12-08 Completed [facility] 00:00:00 [facility] Meningococcal Vaccine 2012-12-08 Completed [facility] vers[facility] 00:00:00 [facility] Meningococcal Vaccine 2012-12-08 Completed [facility] of 00:00:00 [facility] TDAP 2012-12-08 Completed [facility] 00:00:00 [facility] Meningococcal Vaccine 2012-12-08 Completed [facility] vers[facility] 00:00:00 [facility] TDAP 2012-12-08 Completed [facility] 00:00:00 [facility] Tdap 2012-12-08 Completed [facility] 00:00:00 [facility] Meningococcal Vaccine 2012-12-08 Completed [facility] versity of 00:00:00 [facility] TDAP 2012-12-08 Completed [facility] 00:00:00 [facility] Meningococcal Vaccine 2012-12-08 Completed [facility] 00:00:00 [facility] TDAP 2012-12-08 Completed [facility] 00:00:00 [facility] Meningococcal Vaccine 2012-12-08 Completed [facility] 00:00:00 [facility] TDAP 2012-12-08 Completed [facility] of [...] Branch TDAP 2012-12-08 Completed [facility] 00:00:00 [facility] Meningococcal Vaccine 2012-12-08 Completed [facility] vers[facility] 00:00:00 [facility] TDAP 2012-12-08 Completed [facility] 00:00:00 [facility] Meningococcal Vaccine 2012-12-08 Completed [facility] 00:00:00 [facility] Meningococcal Vaccine 2012-12-08 Completed [facility] vers[facility] 00:00:00 [facility] TDAP 2012-12-08 Completed [facility] 00:00:00 [facility] Tdap 2012-12-08 Completed [facility] 00:00:00 [facility] Meningococcal Vaccine 2012-12-08 Completed [facility] vers[facility] 00:00:00 [facility] TDAP 2012-12-08 Completed [facility] of [...] Vaccine 2012-12-08 Completed [facility] 00:00:00 [facility] TDAP 2012-12-08 Completed [facility] 00:00:00 [facility] Meningococcal Vaccine 2012-12-08 Completed [facility] 00:00:00 [facility] TDAP 2012-12-08 Completed [facility] 00:00:00 [facility] Meningococcal Vaccine 2012-12-08 Completed [facility] versity of 00:00:00 [facility] TDAP 2012-12-08 Completed [facility] 00:00:00 [facility] Meningococcal Vaccine 2012-12-08 Completed [facility] vers[facility] 00:00:00 [facility] Tdap 2012-12-08 Completed [facility] 00:00:00 [facility] Tdap 2012-12-08 Completed [facility] 00:00:00 [facility] Meningococcal Vaccine 2012-12-08 Completed Uni versity of 00:00:00 [facility] Tdap 2012-12-08 Completed [facility] 00:00:00 [facility] Meningococcal Vaccine 2012-12-08 Completed [facility] versity of 00:00:00 [facility] Tdap 2012-12-08 Completed [facility] 00:00:00 [facility] Meningococcal Vaccine 2012-12-08 Completed [facility] vers[facility] of 00:00:00 [facility] Tdap 2012-12-08 Completed [facility] 00:00:00 [facility] Meningococcal Vaccine 2012-12-08 Completed [facility] vers[facility] of 00:00:00 [facility] Tdap 2012-12-08 Completed [facility] 00:00:00 [facility] Meningococcal Vaccine 2012-12-08 Completed [facility] versity of 00:00:00 [facility] Tdap 2012-12-08 Completed [facility] 00:00:00 [facility] Meningococcal Vaccine 2012-12-08 Completed [facility] versity of 00:00:00 [facility] Tdap 2012-12-08 Completed [facility] 00:00:00 [facility] Meningococcal Vaccine 2012-12-08 Completed [facility] versity of 00:00:00 [facility] Meningococcal Vaccine 2012-12-08 Completed [facility] versity of 00:00:00 [facility] Tdap 2012-12-08 Completed [facility] 00:00:00 [facility] Meningococcal Vaccine 2012-12-08 Completed [facility] versity [facility] 00:00:00 [facility] Tdap 2012-12-08 Completed [facility] 00:00:00 [facility] Tdap 2012-12-08 Completed [facility] 00:00:00 [facility] Meningococcal Vaccine 2012-12-08 Completed Uni versity of 00:00:00 [facility] Tdap 2012-12-08 Completed [facility] 00:00:00 [facility] Meningococcal Vaccine 2012-12-08 Completed [facility] versity of 00:00:00 [facility] Tdap 2012-12-08 Completed [facility] 00:00:00 [facility] Meningococcal Vaccine 2012-12-08 Completed [facility] versity of 00:00:00 [facility] Tdap 2012-12-08 Completed [facility] 00:00:00 [facility] Meningococcal Vaccine 2012-12-08 Completed [facility] versity of 00:00:00 [facility] Tdap 2012-12-08 Completed [facility] 00:00:00 [facility] Meningococcal Vaccine 2012-12-08 Completed Uni versity of 00:00:00 [facility] Tdap 2012-12-08 Completed [facility] 00:00:00 [facility] Meningococcal Vaccine 2012-12-08 Completed [facility] versity of 00:00:00 [facility] Tdap 2012-12-08 Completed [facility] 00:00:00 [facility] Meningococcal Vaccine 2012-12-08 Completed Uni versity of 00:00:00 [facility] Tdap 2012-12-08 Completed [facility] of 00:00:00 [facility] Meningococcal Vaccine 2012-12-08 Completed Uni versity of 00:00:00 [facility] Varicella 2012-03-11 Completed University of (varivax)(chicken [...] y of Vaccine Quad IM 6-35 00:00:00 [facility] Influenza Virus 2010-02-28 Completed Universit y of Vaccine Quad IM 6-35 00:00:00 [facility] Influenza Virus 2010-02-28 Completed Universit y of Vaccine Quad IM 6-35 00:00:00 [facility] Influenza Virus 2010-02-28 Completed Universit y of Vaccine Quad IM 6-35 00:00:00 [facility] Influenza Virus 2010-02-28 Completed Universit y of Vaccine Quad IM 6-35 00:00:00 [facility] Influenza Virus 2010-02-28 Completed Universit y of Vaccine Quad IM 6-35 00:00:00 [facility] Influenza Virus 2010-02-28 Completed Universit y of Vaccine Quad IM 6-35 00:00:00 [facility] Influenza Virus 2010-02-28 Completed Universit y of Vaccine Quad IM 6-35 00:00:00 [facility] Influenza Virus 2010-02-28 Completed Universit y of Vaccine Quad IM 6-35 00:00:00 [facility] Influenza Virus 2010-02-28 Completed Universit y of Vaccine Quad IM 6-35 00:00:00 [facility] Influenza Virus 2010-02-28 Completed Universit y of Vaccine Quad IM 6-35 00:00:00 [facility] Influenza Virus 2010-02-28 Completed Universit y of Vaccine Quad IM 6-35 00:00:00 [facility] Influenza Virus 2010-02-28 Completed Universit y of Vaccine Quad IM 6-35 00:00:00 [facility] Influenza Virus 2010-02-28 Completed Universit y of Vaccine Quad IM 6-35 00:00:00 [facility] Influenza Virus 2010-02-28 Completed Universit y of Vaccine Quad IM 6-35 00:00:00 [facility] Influenza Virus 2010-02-28 Completed Universit y of Vaccine Quad IM 6-35 00:00:00 [facility] Influenza Virus 2010-02-28 Completed Universit y of Vaccine Quad IM 6-35 00:00:00 [facility] Influenza Virus 2010-02-28 Completed Universit y of Vaccine Quad IM 6-35 00:00:00 [facility] Influenza Virus 2010-02-28 Completed Universit y of Vaccine Quad IM 6-35 00:00:00 [facility] Influenza Virus 2010-02-28 Completed Universit y of Vaccine Quad IM 6-35 00:00:00 [facility] Influenza Virus 2010-02-28 Completed Universit y of Vaccine Quad IM 6-35 00:00:00 [facility] Influenza Virus 2010-02-28 Completed Universit y of Vaccine Quad IM 6-35 00:00:00 [facility] Influenza Virus 2010-02-28 Completed Universit y of Vaccine Quad IM 6-35 00:00:00 [facility] Influenza Virus 2010-02-28 Completed Universit y of Vaccine Quad IM 6-35 00:00:00 [facility] Influenza Virus 2010-02-28 Completed Universit y of Vaccine Quad IM 6-35 00:00:00 [facility] Influenza Virus 2010-02-28 Completed Universit y of Vaccine Quad IM 6-35 00:00:00 [facility] Influenza Virus 2010-02-28 Completed Universit y of Vaccine Quad IM 6-35 00:00:00 [facility] Influenza Virus 2010-02-28 Completed Universit y of Vaccine Quad IM 6-35 00:00:00 [facility] Influenza Virus 2010-02-28 Completed Universit y of Vaccine Quad IM 6-35 00:00:00 [facility] Influenza Virus 2010-02-28 Completed Universit y of Vaccine Quad IM 6-35 00:00:00 [facility] Influenza Virus 2010-02-28 Completed Universit y of Vaccine Quad IM 6-35 00:00:00 [facility] Influenza Virus 2010-02-28 Completed Universit y of Vaccine Quad IM 6-35 00:00:00 [facility] Influenza Virus 2010-02-28 Completed Universit y of Vaccine Quad IM 6-35 00:00:00 [facility] Influenza Virus 2010-02-28 Completed Universit y of Vaccine Quad IM 6-35 00:00:00 [facility] Influenza Virus 2010-02-28 Completed Universit y of Vaccine Quad IM 6-35 00:00:00 [facility] Influenza Virus 2010-02-28 Completed Universit y of Vaccine Quad IM 6-35 00:00:00 [facility] Influenza Virus 2010-02-28 Completed Universit y of Vaccine Quad IM 6-35 00:00:00 [facility] Influenza Virus 2010-02-28 Completed Universit y of Vaccine Quad IM 6-35 00:00:00 [facility] Influenza Virus 2010-02-28 Completed Universit y of Vaccine Quad IM 6-35 00:00:00 [facility] Influenza Virus 2010-02-28 Completed Universit y of Vaccine Quad IM 6-35 00:00:00 [facility] Influenza Virus 2010-02-28 Completed Universit y of Vaccine Quad IM 6-35 00:00:00 [facility] Influenza Virus 2010-02-28 Completed Universit y of Vaccine Quad IM 6-35 00:00:00 [facility] Influenza Virus 2010-02-28 Completed Universit y of Vaccine Quad IM 6-35 00:00:00 [facility] Influenza Virus 2010-02-28 Completed Universit y of Vaccine Quad IM 6-35 00:00:00 [facility] Influenza Virus 2010-02-28 Completed Universit y of Vaccine Quad IM 6-35 00:00:00 [facility] Influenza Virus 2010-02-28 Completed Universit y of Vaccine Quad IM 6-35 00:00:00 [facility] Influenza Virus 2010-02-28 Completed Universit y of Vaccine Quad IM 6-35 00:00:00 [facility] Influenza Virus 2010-02-28 Completed [facility] Vaccine Quad IM 6-35 00:00:00 [facility] Influenza Virus 2010-02-28 Completed [facility] Vaccine Quad IM 6-35 00:00:00 [facility] Influenza Virus 2010-02-28 Completed [facility] Vaccine Quad IM 6-35 00:00:00 [facility] Influenza Virus 2010-02-28 Completed [facility] Vaccine Quad IM 6-35 00:00:00 [facility] Influenza Virus 2010-02-28 Completed [facility] Vaccine Quad IM 6-35 00:00:00 [facility] Influenza Virus 2010-02-28 Completed [facility] Vaccine Quad IM 6-35 00:00:00 [facility] Influenza Virus 2010-02-28 Completed [facility] Vaccine Quad IM 6-35 00:00:00 [facility] Influenza Virus 2010-02-28 Completed [facility] Vaccine Quad IM 6-35 00:00:00 [facility] Influenza Virus 2010-02-28 Completed [facility] Vaccine Quad IM 6-35 00:00:00 [facility] Influenza Virus 2010-02-28 Completed [facility] Vaccine Quad IM 6-35 00:00:00 [facility] MMR 2005-01-10 Completed [facility] 00:00:00 [facility] Pneumococcal 13 2005-01-10 Completed [facility] Conjugate, PCV13 00:00:00 [place] [facility] (Prevnar 13) [facility] Polio (IPV/OPV) 2005-01-10 Completed [facility] 00:00:00 [facility] Polio (IPV/OPV) 2005-01-10 Completed [facility] 00:00:00 [facility] DTAP 2005-01-10 Completed [facility] 00:00:00 [facility] HIB 4 Dose Schedule 2005-01-10 Completed [facility] 00:00:00 [facility] MMR 2005-01-10 Completed [facility] 00:00:00 [facility] Pneumococcal 13 2005-01-10 Completed [facility] Conjugate, PCV13 00:00:00 [facility] dical (Prevnar 13) Branch Polio (IPV/OPV) 2005-01-10 Completed [facility] 00:00:00 [facility] DTAP 2005-01-10 Completed [facility] 00:00:00 [facility] HIB 4 Dose Schedule 2005-01-10 Completed [facility] 00:00:00 [facility] MMR 2005-01-10 Completed [facility] 00:00:00 [facility] Pneumococcal 13 2005-01-10 Completed [facility] Conjugate, PCV13 00:00:00 [facility] dical (Prevnar 13) Branch Polio (IPV/OPV) 2005-01-10 Completed [facility] 00:00:00 [facility] DTAP 2005-01-10 Completed [facility] 00:00:00 [facility] HIB 4 Dose Schedule 2005-01-10 Completed [facility] 00:00:00 [facility] MMR 2005-01-10 Completed [facility] 00:00:00 [facility] Pneumococcal 13 2005-01-10 Completed [facility] Conjugate, PCV13 00:00:00 [place] [facility] (Prevnar 13) [facility] Polio (IPV/OPV) 2005-01-10 Completed [facility] 00:00:00 [facility] DTAP 2005-01-10 Completed [facility] 00:00:00 [facility] HIB 4 Dose Schedule 2005-01-10 Completed [facility] 00:00:00 [facility] MMR 2005-01-10 Completed [facility] 00:00:00 [facility] Pneumococcal 13 2005-01-10 Completed [facility] Conjugate, PCV13 00:00:00 [place] [facility] (Prevnar 13) [facility] Polio (IPV/OPV) 2005-01-10 Completed [facility] 00:00:00 [facility] DTAP 2005-01-10 Completed [facility] 00:00:00 [facility] HIB 4 Dose Schedule 2005-01-10 Completed [facility] 00:00:00 [facility] DTAP 2005-01-10 Completed [facility] 00:00:00 [facility] MMR 2005-01-10 Completed [facility] 00:00:00 [facility] Pneumococcal 13 2005-01-10 Completed [facility] Conjugate, PCV13 00:00:00 [facility] d[facility] (Prevnar 13) Branch Polio (IPV/OPV) 2005-01-10 Completed [facility] 00:00:00 [facility] DTAP 2005-01-10 Completed [facility] 00:00:00 [facility] DTAP 2005-01-10 Completed [facility] 00:00:00 [facility] HIB 4 Dose Schedule 2005-01-10 Completed [facility] 00:00:00 [facility] HIB 4 Dose Schedule 2005-01-10 Completed [facility] of 00:00:00 [facility] MMR 2005-01-10 Completed [facility] 00:00:00 [facility] Pneumococcal 13 2005-01-10 Completed [facility] Conjugate, PCV13 00:00:00 [facility] d[facility] (Prevnar 13) Branch Polio (IPV/OPV) 2005-01-10 Completed [facility] 00:00:00 [facility] DTAP 2005-01-10 Completed [facility] 00:00:00 [facility] HIB 4 Dose Schedule 2005-01-10 Completed [facility] 00:00:00 [facility] MMR 2005-01-10 Completed [facility] 00:00:00 [facility] Pneumococcal 13 2005-01-10 Completed [facility] Conjugate, PCV13 00:00:00 [place] [facility] (Prevnar 13) [facility] Polio (IPV/OPV) 2005-01-10 Completed [facility] 00:00:00 [facility] DTAP 2005-01-10 Completed [facility] 00:00:00 [facility] HIB 4 Dose Schedule 2005-01-10 Completed [facility] 00:00:00 [facility] MMR 2005-01-10 Completed [facility] 00:00:00 [facility] Pneumococcal 13 2005-01-10 Completed [facility] Conjugate, PCV13 00:00:00 [place] [facility] (Prevnar 13) [facility] Polio (IPV/OPV) 2005-01-10 Completed [facility] 00:00:00 [facility] MMR 2005-01-10 Completed [facility] 00:00:00 [facility] Pneumococcal 13 2005-01-10 Completed [facility] Conjugate, PCV13 00:00:00 [facility] (Prevnar 13) Branch DTAP 2005-01-10 Completed [facility] 00:00:00 [facility] HIB 4 Dose Schedule 2005-01-10 Completed [facility] of 00:00:00 [facility] MMR 2005-01-10 Completed [facility] 00:00:00 [facility] Pneumococcal 13 2005-01-10 Completed [facility] Conjugate, PCV13 00:00:00 [facility] d[facility] (Prevnar 13) Branch Polio (IPV/OPV) 2005-01-10 Completed [facility] 00:00:00 [facility] Polio (IPV/OPV) 2005-01-10 Completed [facility] 00:00:00 [facility] DTAP 2005-01-10 Completed [facility] 00:00:00 [facility] HIB 4 Dose Schedule 2005-01-10 Completed [facility] of 00:00:00 [facility] MMR 2005-01-10 Completed [facility] 00:00:00 [facility] Pneumococcal 13 2005-01-10 Completed [facility] Conjugate, PCV13 00:00:00 [facility] d[facility] (Prevnar 13) Branch Polio (IPV/OPV) 2005-01-10 Completed [facility] 00:00:00 [facility] DTAP 2005-01-10 Completed [facility] 00:00:00 [facility] HIB 4 Dose Schedule 2005-01-10 Completed [facility] of 00:00:00 [facility] MMR 2005-01-10 Completed [facility] 00:00:00 [facility] Pneumococcal 13 2005-01-10 Completed [facility] Conjugate, PCV13 00:00:00 [place] [facility] (Prevnar 13) [facility] Polio (IPV/OPV) 2005-01-10 Completed [facility] 00:00:00 [facility] DTAP 2005-01-10 Completed [facility] 00:00:00 [facility] HIB 4 Dose Schedule 2005-01-10 Completed [facility] rs[facility] of 00:00:00 [facility] MMR 2005-01-10 Completed [facility] 00:00:00 [facility] Pneumococcal 13 2005-01-10 Completed [facility] Conjugate, PCV13 00:00:00 [facility] d[facility] (Prevnar 13) Branch Polio (IPV/OPV) 2005-01-10 Completed [facility] 00:00:00 [facility] DTAP 2005-01-10 Completed [facility] 00:00:00 [facility] DTAP 2005-01-10 Completed [facility] 00:00:00 [facility] HIB 4 Dose Schedule 2005-01-10 Completed [facility] of 00:00:00 [facility] MMR 2005-01-10 Completed [facility] 00:00:00 [facility] Pneumococcal 13 2005-01-10 Completed [facility] Conjugate, PCV13 00:00:00 [facility] (Prevnar 13) Branch Polio (IPV/OPV) 2005-01-10 Completed [facility] 00:00:00 [facility] DTAP 2005-01-10 Completed [facility] 00:00:00 [facility] HIB 4 Dose Schedule 2005-01-10 Completed [facility] 00:00:00 [facility] HIB 4 Dose Schedule 2005-01-10 Completed [facility] of 00:00:00 [facility] MMR 2005-01-10 Completed [facility] 00:00:00 [facility] Pneumococcal 13 2005-01-10 Completed [facility] Conjugate, PCV13 00:00:00 [facility] d[facility] (Prevnar 13) Branch Polio (IPV/OPV) 2005-01-10 Completed [facility] 00:00:00 [facility] DTAP 2005-01-10 Completed [facility] 00:00:00 [facility] HIB 4 Dose Schedule 2005-01-10 Completed [facility] of 00:00:00 [facility] MMR 2005-01-10 Completed [facility] 00:00:00 [facility] Pneumococcal 13 2005-01-10 Completed [facility] Conjugate, PCV13 00:00:00 [facility] (Prevnar 13) Branch Polio (IPV/OPV) 2005-01-10 Completed [facility] 00:00:00 [facility] HIB 4 Dose Schedule 2005-01-10 Completed [facility] rs[facility] of 00:00:00 [facility] DTAP 2005-01-10 Completed [facility] 00:00:00 [facility] HIB 4 Dose Schedule 2005-01-10 Completed [facility] 00:00:00 [facility] MMR 2005-01-10 Completed [facility] 00:00:00 [facility] MMR 2005-01-10 Completed [facility] 00:00:00 [facility] Pneumococcal 13 2005-01-10 Completed [facility] Conjugate, PCV13 00:00:00 [facility] d[facility] (Prevnar 13) Branch Polio (IPV/OPV) 2005-01-10 Completed [facility] 00:00:00 [facility] Pneumococcal 13 2005-01-10 Completed [facility] Conjugate, PCV13 00:00:00 [facility] (Prevnar 13) Branch DTAP 2005-01-10 Completed [facility] 00:00:00 [facility] HIB 4 Dose Schedule 2005-01-10 Completed [facility] rs[facility] of 00:00:00 [facility] MMR 2005-01-10 Completed [facility] 00:00:00 [facility] Pneumococcal 13 2005-01-10 Completed [facility] Conjugate, PCV13 00:00:00 [facility] d[facility] (Prevnar 13) Branch Polio (IPV/OPV) 2005-01-10 Completed [facility] 00:00:00 [facility] Polio (IPV/OPV) 2005-01-10 Completed [facility] 00:00:00 [facility] DTAP 2005-01-10 Completed [facility] 00:00:00 [facility] HIB 4 Dose Schedule 2005-01-10 Completed [facility] rsity of 00:00:00 [facility] MMR 2005-01-10 Completed [facility] 00:00:00 [facility] Pneumococcal 13 2005-01-10 Completed [facility] Conjugate, PCV13 00:00:00 [facility] (Prevnar 13) Branch Polio (IPV/OPV) 2005-01-10 Completed [facility] 00:00:00 [facility] DTAP 2005-01-10 Completed [facility] 00:00:00 [facility] HIB 4 Dose Schedule 2005-01-10 Completed [facility] rs[facility] of 00:00:00 [facility] MMR 2005-01-10 Completed [facility] 00:00:00 [facility] Pneumococcal 13 2005-01-10 Completed [facility] Conjugate, PCV13 00:00:00 [facility] d[facility] (Prevnar 13) Branch Polio (IPV/OPV) 2005-01-10 Completed [facility] 00:00:00 [facility] DTAP 2005-01-10 Completed [facility] 00:00:00 [facility] HIB 4 Dose Schedule 2005-01-10 Completed [facility] of 00:00:00 [facility] MMR 2005-01-10 Completed [facility] 00:00:00 [facility] Pneumococcal 13 2005-01-10 Completed [facility] Conjugate, PCV13 00:00:00 [facility] (Prevnar 13) Branch Polio (IPV/OPV) 2005-01-10 Completed [facility] 00:00:00 [facility] DTAP 2005-01-10 Completed [facility] 00:00:00 [facility] HIB 4 Dose Schedule 2005-01-10 Completed [facility] of 00:00:00 [facility] MMR 2005-01-10 Completed [facility] 00:00:00 [facility] Pneumococcal 13 2005-01-10 Completed [facility] Conjugate, PCV13 00:00:00 [facility] (Prevnar 13) Branch Polio (IPV/OPV) 2005-01-10 Completed [facility] 00:00:00 [facility] DTAP 2005-01-10 Completed [facility] 00:00:00 [facility] HIB 4 Dose Schedule 2005-01-10 Completed [facility] rs[facility] of 00:00:00 [facility] MMR 2005-01-10 Completed [facility] 00:00:00 [facility] Pneumococcal 13 2005-01-10 Completed [facility] Conjugate, PCV13 00:00:00 [facility] (Prevnar 13) Branch Polio (IPV/OPV) 2005-01-10 Completed [facility] 00:00:00 [facility] DTAP 2005-01-10 Completed [facility] 00:00:00 [facility] HIB 4 Dose Schedule 2005-01-10 Completed [facility] of 00:00:00 [facility] MMR 2005-01-10 Completed [facility] 00:00:00 [facility] Pneumococcal 13 2005-01-10 Completed [facility] Conjugate, PCV13 00:00:00 [facility] (Prevnar 13) Branch Polio (IPV/OPV) 2005-01-10 Completed [facility] 00:00:00 [facility] DTAP 2005-01-10 Completed [facility] 00:00:00 [facility] DTAP 2005-01-10 Completed [facility] 00:00:00 [facility] HIB 4 Dose Schedule 2005-01-10 Completed [facility] rs[facility] of 00:00:00 [facility] MMR 2005-01-10 Completed [facility] 00:00:00 [facility] Pneumococcal 13 2005-01-10 Completed [facility] Conjugate, PCV13 00:00:00 [facility] (Prevnar 13) Branch Polio (IPV/OPV) 2005-01-10 Completed [facility] 00:00:00 [facility] DTAP 2005-01-10 Completed [facility] 00:00:00 [facility] HIB 4 Dose Schedule 2005-01-10 Completed [facility] of 00:00:00 [facility] HIB 4 Dose Schedule 2005-01-10 Completed [facility] of 00:00:00 [facility] MMR 2005-01-10 Completed [facility] 00:00:00 [facility] Pneumococcal 13 2005-01-10 Completed [facility] Conjugate, PCV13 00:00:00 [facility] (Prevnar 13) Branch Polio (IPV/OPV) 2005-01-10 Completed [facility] 00:00:00 [facility] DTAP 2005-01-10 Completed [facility] 00:00:00 [facility] HIB 4 Dose Schedule 2005-01-10 Completed [facility] 00:00:00 [facility] MMR 2005-01-10 Completed [facility] 00:00:00 [facility] Pneumococcal 13 2005-01-10 Completed [facility] Conjugate, PCV13 00:00:00 [facility] (Prevnar 13) Branch Polio (IPV/OPV) 2005-01-10 Completed [facility] 00:00:00 [facility] MMR 2005-01-10 Completed [facility] 00:00:00 [facility] Pneumococcal 13 2005-01-10 Completed [facility] Conjugate, PCV13 00:00:00 [place] [facility] (Prevnar 13) [facility] DTAP 2005-01-10 Completed [facility] 00:00:00 [facility] HIB 4 Dose Schedule 2005-01-10 Completed [facility] rs[facility] of 00:00:00 [facility] MMR 2005-01-10 Completed [facility] 00:00:00 [facility] Pneumococcal 13 2005-01-10 Completed [facility] Conjugate, PCV13 00:00:00 [facility] (Prevnar 13) Branch Polio (IPV/OPV) 2005-01-10 Completed [facility] 00:00:00 [facility] Polio (IPV/OPV) 2005-01-10 Completed [facility] 00:00:00 [facility] DTAP 2005-01-10 Completed [facility] 00:00:00 [facility] HIB 4 Dose Schedule 2005-01-10 Completed [facility] rs[facility] of 00:00:00 [facility] MMR 2005-01-10 Completed [facility] 00:00:00 [facility] Pneumococcal 13 2005-01-10 Completed [facility] Conjugate, PCV13 00:00:00 [facility] (Prevnar 13) Branch Polio (IPV/OPV) 2005-01-10 Completed [facility] 00:00:00 [facility] DTAP 2005-01-10 Completed [facility] 00:00:00 [facility] HIB 4 Dose Schedule 2005-01-10 Completed [facility] rs[facility] of 00:00:00 [facility] MMR 2005-01-10 Completed [facility] 00:00:00 [facility] Pneumococcal 13 2005-01-10 Completed [facility] Conjugate, PCV13 00:00:00 [facility] (Prevnar 13) Branch Polio (IPV/OPV) 2005-01-10 Completed [facility] 00:00:00 [facility] DTAP 2005-01-10 Completed [facility] 00:00:00 [facility] HIB 4 Dose Schedule 2005-01-10 Completed [facility] rs[facility] of 00:00:00 [facility] MMR 2005-01-10 Completed [facility] 00:00:00 [facility] Pneumococcal 13 2005-01-10 Completed [facility] Conjugate, PCV13 00:00:00 [facility] (Prevnar 13) Branch Polio (IPV/OPV) 2005-01-10 Completed [facility] 00:00:00 [facility] DTAP 2005-01-10 Completed [facility] 00:00:00 [facility] HIB 4 Dose Schedule 2005-01-10 Completed [facility] rs[facility] of 00:00:00 [facility] MMR 2005-01-10 Completed [facility] 00:00:00 [facility] Pneumococcal 13 2005-01-10 Completed [facility] Conjugate, PCV13 00:00:00 [facility] (Prevnar 13) Branch Polio (IPV/OPV) 2005-01-10 Completed [facility] 00:00:00 [facility] DTAP 2005-01-10 Completed [facility] 00:00:00 [facility] HIB 4 Dose Schedule 2005-01-10 Completed [facility] rs[facility] of 00:00:00 [facility] MMR 2005-01-10 Completed [facility] 00:00:00 [facility] Pneumococcal 13 2005-01-10 Completed [facility] Conjugate, PCV13 00:00:00 [facility] (Prevnar 13) Branch Polio (IPV/OPV) 2005-01-10 Completed [facility] 00:00:00 [facility] DTAP 2005-01-10 Completed [facility] 00:00:00 [facility] DTAP 2005-01-10 Completed [facility] 00:00:00 [facility] HIB 4 Dose Schedule 2005-01-10 Completed [facility] rs[facility] of 00:00:00 [facility] MMR 2005-01-10 Completed [facility] 00:00:00 [facility] Pneumococcal 13 2005-01-10 Completed [facility] Conjugate, PCV13 00:00:00 [facility] (Prevnar 13) Branch Polio (IPV/OPV) 2005-01-10 Completed [facility] 00:00:00 [facility] MMR 2005-01-10 Completed [facility] 00:00:00 [facility] HIB 4 Dose Schedule 2005-01-10 Completed [facility] rs[facility] of 00:00:00 [facility] DTAP 2005-01-10 Completed [facility] 00:00:00 [facility] HIB 4 Dose Schedule 2005-01-10 Completed [facility] rs[facility] of 00:00:00 [facility] MMR 2005-01-10 Completed [facility] 00:00:00 [facility] Pneumococcal 13 2005-01-10 Completed [facility] Conjugate, PCV13 00:00:00 [facility] (Prevnar 13) Branch Polio (IPV/OPV) 2005-01-10 Completed [facility] 00:00:00 [facility] MMR 2005-01-10 Completed [facility] 00:00:00 [facility] Pneumococcal 13 2005-01-10 Completed [facility] Conjugate, PCV13 00:00:00 [facility] (Prevnar 13) Branch Pneumococcal 13 2005-01-10 Completed [facility] Conjugate, PCV13 00:00:00 [facility] (Prevnar 13) Branch Polio (IPV/OPV) 2005-01-10 Completed [facility] 00:00:00 [facility] Polio (IPV/OPV) 2005-01-10 Completed [facility] 00:00:00 [facility] DTAP 2005-01-10 Completed [facility] 00:00:00 [facility] HIB 4 Dose Schedule 2005-01-10 Completed [facility] rsity of 00:00:00 [facility] MMR 2005-01-10 Completed [facility] 00:00:00 [facility] Pneumococcal 13 2005-01-10 Completed [facility] Conjugate, PCV13 00:00:00 [facility] (Prevnar 13) Branch Polio (IPV/OPV) 2005-01-10 Completed [facility] 00:00:00 [facility] DTAP 2005-01-10 Completed [facility] 00:00:00 [facility] HIB 4 Dose Schedule 2005-01-10 Completed [facility] rs[facility] of 00:00:00 [facility] MMR 2005-01-10 Completed [facility] 00:00:00 [facility] Pneumococcal 13 2005-01-10 Completed [facility] Conjugate, PCV13 00:00:00 [facility] (Prevnar 13) Branch Polio (IPV/OPV) 2005-01-10 Completed [facility] 00:00:00 [facility] DTAP 2005-01-10 Completed [facility] 00:00:00 [facility] HIB 4 Dose Schedule 2005-01-10 Completed [facility] rs[facility] of 00:00:00 [facility] MMR 2005-01-10 Completed [facility] 00:00:00 [facility] Pneumococcal 13 2005-01-10 Completed [facility] Conjugate, PCV13 00:00:00 [facility] (Prevnar 13) Branch Polio (IPV/OPV) 2005-01-10 Completed [facility] 00:00:00 [facility] DTAP 2005-01-10 Completed [facility] 00:00:00 [facility] HIB 4 Dose Schedule 2005-01-10 Completed [facility] rs[facility] of 00:00:00 [facility] MMR 2005-01-10 Completed [facility] 00:00:00 [facility] Pneumococcal 13 2005-01-10 Completed [facility] Conjugate, PCV13 00:00:00 [facility] (Prevnar 13) Branch Polio (IPV/OPV) 2005-01-10 Completed [facility] 00:00:00 [facility] DTAP 2005-01-10 Completed [facility] 00:00:00 [facility] DTAP 2005-01-10 Completed [facility] 00:00:00 [facility] HIB 4 Dose Schedule 2005-01-10 Completed [facility] rs[facility] of 00:00:00 [facility] MMR 2005-01-10 Completed [facility] 00:00:00 [facility] Pneumococcal 13 2005-01-10 Completed [facility] Conjugate, PCV13 00:00:00 [facility] (Prevnar 13) Branch Polio (IPV/OPV) 2005-01-10 Completed [facility] 00:00:00 [facility] HIB 4 Dose Schedule 2005-01-10 Completed [facility] rs[facility] of 00:00:00 [facility] DTAP 2005-01-10 Completed [facility] 00:00:00 [facility] HIB 4 Dose Schedule 2005-01-10 Completed [facility] rs[facility] of 00:00:00 [facility] MMR 2005-01-10 Completed [facility] 00:00:00 [facility] Pneumococcal 13 2005-01-10 Completed [facility] Conjugate, PCV13 00:00:00 [facility] (Prevnar 13) Branch Polio (IPV/OPV) 2005-01-10 Completed [facility] 00:00:00 [facility] DTAP 2005-01-10 Completed [facility] 00:00:00 [facility] HIB 4 Dose Schedule 2005-01-10 Completed [facility] 00:00:00 [facility] MMR 2005-01-10 Completed [facility] 00:00:00 [facility] Pneumococcal 13 2005-01-10 Completed [facility] Conjugate, PCV13 00:00:00 [facility] (Prevnar 13) Branch Polio (IPV/OPV) 2005-01-10 Completed [facility]00 [facility] [facility] 2005-01-10 Completed [facility] 00:00:00 [facility] DTAP 2005-01-10 Completed [facility] 00:00:00 [facility] HIB 4 Dose Schedule 2005-01-10 Completed Unive rsity of 00:00:00 [facility] Pneumococcal 13 2005-01-10 Completed Universit y of Conjugate, PCV13 00:00:00 [facility] dical (Prevnar 13) Branch MMR 2005-01-10 Completed [facility] 00:00:00 [facility] Pneumococcal 13 2005-01-10 Completed [facility]it y of Conjugate, PCV13 00:00:00 [facility] dical (Prevnar 13) Branch Polio (IPV/OPV) 2005-01-10 Completed [facility]it [facility] 00:00:00 [facility] Polio (IPV/OPV) 2005-01-10 Completed [facility] 00:00:00 [facility] DTAP 2005-01-10 Completed [facility] 00:00:00 [facility] HIB 4 Dose Schedule 2005-01-10 Completed [facility]ive rsity of 00:00:00 [facility] MMR 2005-01-10 Completed [facility] 00:00:00 [facility] Pneumococcal 13 2005-01-10 Completed Universit [facility] of Conjugate, PCV13 00:00:00 [facility] dical (Prevnar 13) Branch Polio (IPV/OPV) 2005-01-10 Completed [facility]it [facility] 00:00:00 [facility] DTAP 2005-01-10 Completed [facility] 00:00:00 [facility] HIB 4 Dose Schedule 2005-01-10 Completed [facility]ive rsity of 00:00:00 [facility] MMR 2005-01-10 Completed [facility] 00:00:00 [facility] Pneumococcal 13 2005-01-10 Completed Universit y of Conjugate, PCV13 00:00:00 [facility] dical (Prevnar 13) Branch Polio (IPV/OPV) 2005-01-10 Completed [facility]it [facility] of 00:00:00 [facility] DTAP 2005-01-10 Completed [facility] 00:00:00 [facility] HIB 4 Dose Schedule 2005-01-10 Completed [facility] rs[facility] of 00:00:00 [facility] MMR 2005-01-10 Completed [facility] 00:00:00 [facility] Pneumococcal 13 2005-01-10 Completed [facility] Conjugate, PCV13 00:00:00 [facility] (Prevnar 13) [facility] Polio (IPV/OPV) 2005-01-10 Completed [facility] 00:00:00 [facility] DTAP 2005-01-10 Completed [facility] 00:00:00 [facility] HIB 4 Dose Schedule 2005-01-10 Completed [facility]ive rsity of 00:00:00 [facility] MMR 2005-01-10 Completed [facility] 00:00:00 [facility] Pneumococcal 13 2005-01-10 Completed [facility] of Conjugate, PCV13 00:00:00 [facility] (Prevnar 13) [facility] Polio (IPV/OPV) 2005-01-10 Completed [facility] 00:00:00 [facility] DTAP 2005-01-10 Completed [facility] 00:00:00 [facility] HIB 4 Dose Schedule 2005-01-10 Completed [facility] rs[facility] 00:00:00 [facility] MMR 2005-01-10 Completed [facility] 00:00:00 [facility] Pneumococcal 13 2005-01-10 Completed [facility]it [facility] of Conjugate, PCV13 00:00:00 [facility] (Prevnar 13) [facility] Polio (IPV/OPV) 2005-01-10 Completed [facility] 00:00:00 [facility] DTAP 2005-01-10 Completed [facility] 00:00:00 [facility] HIB 4 Dose Schedule 2005-01-10 Completed [facility]ive rs[facility] of 00:00:00 [facility] MMR 2005-01-10 Completed [facility] 00:00:00 [facility] Pneumococcal 13 2005-01-10 Completed [facility] of Conjugate, PCV13 00:00:00 [facility] (Prevnar 13) [facility] Polio (IPV/OPV) 2005-01-10 Completed [facility] 00:00:00 [facility] DTAP 2005-01-10 Completed [facility] 00:00:00 [facility] DTAP 2005-01-10 Completed [facility] 00:00:00 [facility] HIB 4 Dose Schedule 2005-01-10 Completed [facility] rs[facility] of 00:00:00 [facility] HIB 4 Dose Schedule 2005-01-10 Completed [facility] rs[facility] of 00:00:00 [facility] MMR 2005-01-10 Completed [facility] 00:00:00 [facility] Pneumococcal 13 2005-01-10 Completed [facility]it [facility] of Conjugate, PCV13 00:00:00 [facility] dical (Prevnar 13) Branch Polio (IPV/OPV) 2005-01-10 Completed [facility] 00:00:00 [facility] MMR 2005-01-10 Completed [facility] 00:00:00 [facility] Pneumococcal 13 2005-01-10 Completed Universit y of Conjugate, PCV13 00:00:00 [facility] dical (Prevnar 13) Branch DTAP 2005-01-10 Completed [facility] 00:00:00 [facility] HIB 4 Dose Schedule 2005-01-10 Completed [facility]ive rsity of 00:00:00 [facility] HEPATITIS A 2005-01-08 Completed [facility] 00:00:00 [facility] HEPATITIS A 2005-01-08 Completed [facility] 00:00:00 [facility] HEPATITIS A 2005-01-08 Completed [facility] 00:00:00 [facility] HEPATITIS A 2005-01-08 Completed [facility] 00:00:00 [facility] HEPATITIS A 2005-01-08 Completed [facility] 00:00:00 [facility] HEPATITIS A 2005-01-08 Completed [facility] 00:00:00 [facility] HEPATITIS A 2005-01-08 Completed [facility] 00:00:00 [facility] HEPATITIS A 2005-01-08 Completed [facility] 00:00:00 [facility] HEPATITIS A 2005-01-08 Completed [facility] 00:00:00 [facility] HEPATITIS A 2005-01-08 Completed [facility] 00:00:00 [facility] HEPATITIS A 2005-01-08 Completed [facility] 00:00:00 [facility] HEPATITIS A 2005-01-08 Completed [facility] 00:00:00 [facility] HEPATITIS A 2005-01-08 Completed [facility] 00:00:00 [facility] HEPATITIS A 2005-01-08 Completed [facility] 00:00:00 [facility] HEPATITIS A 2005-01-08 Completed [facility] 00:00:00 [facility] HEPATITIS A 2005-01-08 Completed [facility] 00:00:00 [facility] HEPATITIS A 2005-01-08 Completed [facility] 00:00:00 [facility] HEPATITIS A 2005-01-08 Completed [facility] 00:00:00 [facility] HEPATITIS A 2005-01-08 Completed [facility] 00:00:00 [facility] HEPATITIS A 2005-01-08 Completed [facility] 00:00:00 [facility] HEPATITIS A 2005-01-08 Completed [facility] 00:00:00 [facility] HEPATITIS A 2005-01-08 Completed [facility] 00:00:00 [facility] HEPATITIS A 2005-01-08 Completed [facility] 00:00:00 [facility] HEPATITIS A 2005-01-08 Completed [facility] 00:00:00 [facility] HEPATITIS A 2005-01-08 Completed [facility] 00:00:00 [facility] HEPATITIS A 2005-01-08 Completed [facility] 00:00:00 [facility] HEPATITIS A 2005-01-08 Completed [facility] 00:00:00 [facility] HEPATITIS A 2005-01-08 Completed [facility] 00:00:00 [facility] HEPATITIS A 2005-01-08 Completed [facility] 00:00:00 [facility] HEPATITIS A 2005-01-08 Completed [facility] 00:00:00 [facility] HEPATITIS A 2005-01-08 Completed [facility] 00:00:00 [facility] HEPATITIS A 2005-01-08 Completed [facility] 00:00:00 [facility] HEPATITIS A 2005-01-08 Completed [facility] 00:00:00 [facility] HEPATITIS A 2005-01-08 Completed [facility] 00:00:00 [facility] HEPATITIS A 2005-01-08 Completed [facility] 00:00:00 [facility] HEPATITIS A 2005-01-08 Completed [facility] 00:00:00 [facility] HEPATITIS A 2005-01-08 Completed [facility] 00:00:00 [facility] HEPATITIS A 2005-01-08 Completed [facility] 00:00:00 [facility] HEPATITIS A 2005-01-08 Completed [facility] 00:00:00 [facility] HEPATITIS A 2005-01-08 Completed [facility] 00:00:00 [facility] HEPATITIS A 2005-01-08 Completed [facility] 00:00:00 [facility] HEPATITIS A 2005-01-08 Completed [facility] 00:00:00 [facility] HEPATITIS A 2005-01-08 Completed [facility] 00:00:00 [facility] HEPATITIS A 2005-01-08 Completed [facility] 00:00:00 [facility] HEPATITIS A 2005-01-08 Completed [facility] 00:00:00 [facility] HEPATITIS A 2005-01-08 Completed [facility] 00:00:00 [facility] HEPATITIS A 2005-01-08 Completed [facility] 00:00:00 [facility] HEPATITIS A 2005-01-08 Completed [facility] 00:00:00 [facility] HEPATITIS A 2005-01-08 Completed [facility] 00:00:00 [facility] HEPATITIS A 2005-01-08 Completed [facility] 00:00:00 [facility] HEPATITIS A 2005-01-08 Completed [facility] 00:00:00 [facility] HEPATITIS A 2005-01-08 Completed [facility] 00:00:00 [facility] HEPATITIS A 2005-01-08 Completed [facility] 00:00:00 [facility] HEPATITIS A 2005-01-08 Completed [facility] 00:00:00 [facility] HEPATITIS A 2005-01-08 Completed [facility] 00:00:00 [facility] HEPATITIS A 2005-01-08 Completed [facility] 00:00:00 [facility] HEPATITIS A 2005-01-08 Completed [facility] 00:00:00 [facility] DTAP 2003-08-16 Completed [facility] 00:00:00 [facility] DTAP 2003-08-16 Completed [facility] 00:00:00 [facility] DTAP 2003-08-16 Completed [facility] 00:00:00 [facility] DTAP 2003-08-16 Completed [facility] 00:00:00 [facility] DTAP 2003-08-16 Completed [facility] 00:00:00 [facility] DTAP 2003-08-16 Completed [facility] 00:00:00 [facility] DTAP 2003-08-16 Completed [facility] 00:00:00 [facility] DTAP 2003-08-16 Completed [facility] 00:00:00 [facility] DTAP 2003-08-16 Completed [facility] 00:00:00 [facility] DTAP 2003-08-16 Completed [facility] 00:00:00 [facility] DTAP 2003-08-16 Completed [facility] 00:00:00 [facility] DTAP 2003-08-16 Completed [facility] 00:00:00 [facility] DTAP 2003-08-16 Completed [facility] 00:00:00 [facility] DTAP 2003-08-16 Completed [facility] 00:00:00 [facility] DTAP 2003-08-16 Completed [facility] 00:00:00 [facility] DTAP 2003-08-16 Completed [facility] 00:00:00 [facility] DTAP 2003-08-16 Completed [facility] 00:00:00 [facility] DTAP 2003-08-16 Completed [facility] 00:00:00 [facility] DTAP 2003-08-16 Completed [facility] 00:00:00 [facility] DTAP 2003-08-16 Completed [facility] 00:00:00 [facility] DTAP 2003-08-16 Completed [facility] 00:00:00 [facility] DTAP 2003-08-16 Completed [facility] 00:00:00 [facility] DTAP 2003-08-16 Completed [facility] 00:00:00 [facility] DTAP 2003-08-16 Completed [facility] 00:00:00 [facility] DTAP 2003-08-16 Completed [facility] 00:00:00 [facility] DTAP 2003-08-16 Completed [facility] 00:00:00 [facility] DTAP 2003-08-16 Completed [facility] 00:00:00 [facility] DTAP 2003-08-16 Completed [facility] 00:00:00 [facility] DTAP 2003-08-16 Completed [facility] 00:00:00 [facility] DTAP 2003-08-16 Completed [facility] 00:00:00 [facility] DTAP 2003-08-16 Completed [facility] 00:00:00 [facility] DTAP 2003-08-16 Completed [facility] 00:00:00 [facility] DTAP 2003-08-16 Completed [facility] 00:00:00 [facility] DTAP 2003-08-16 Completed [facility] 00:00:00 [facility] DTAP 2003-08-16 Completed [facility] 00:00:00 [facility] DTAP 2003-08-16 Completed [facility] 00:00:00 [facility] DTAP 2003-08-16 Completed [facility] 00:00:00 [facility] DTAP 2003-08-16 Completed [facility] 00:00:00 [facility] DTAP 2003-08-16 Completed [facility] 00:00:00 [facility] DTAP 2003-08-16 Completed [facility] 00:00:00 [facility] DTAP 2003-08-16 Completed [facility] 00:00:00 [facility] DTAP 2003-08-16 Completed [facility] 00:00:00 [facility] DTAP 2003-08-16 Completed [facility] 00:00:00 [facility] DTAP 2003-08-16 Completed [facility] 00:00:00 [facility] DTAP 2003-08-16 Completed [facility] 00:00:00 [facility] DTAP 2003-08-16 Completed [facility] 00:00:00 [facility] DTAP 2003-08-16 Completed [facility] 00:00:00 [facility] DTAP 2003-08-16 Completed [facility] 00:00:00 [facility] DTAP 2003-08-16 Completed [facility] 00:00:00 [facility] DTAP 2003-08-16 Completed [facility] 00:00:00 [facility] DTAP 2003-08-16 Completed [facility] 00:00:00 [facility] DTAP 2003-08-16 Completed [facility] 00:00:00 [facility] DTAP 2003-08-16 Completed [facility] 00:00:00 [facility] DTAP 2003-08-16 Completed [facility] 00:00:00 [facility] DTAP 2003-08-16 Completed [facility] 00:00:00 [facility] DTAP 2003-08-16 Completed [facility] 00:00:00 [facility] DTAP 2003-08-16 Completed [facility] 00:00:00 [facility] HEPATITIS A 2003-01-10 Completed [facility] 00:00:00 [facility] HEPATITIS A 2003-01-10 Completed [facility] 00:00:00 [facility] HEPATITIS A 2003-01-10 Completed [facility] 00:00:00 [facility] HEPATITIS A 2003-01-10 Completed [facility] 00:00:00 [facility] HEPATITIS A 2003-01-10 Completed [facility] 00:00:00 [facility] HEPATITIS A 2003-01-10 Completed [facility] 00:00:00 [facility] HEPATITIS A 2003-01-10 Completed [facility] 00:00:00 [facility] HEPATITIS A 2003-01-10 Completed [facility] 00:00:00 [facility] HEPATITIS A 2003-01-10 Completed [facility] 00:00:00 [facility] HEPATITIS A 2003-01-10 Completed [facility] 00:00:00 [facility] HEPATITIS A 2003-01-10 Completed [facility] 00:00:00 [facility] HEPATITIS A 2003-01-10 Completed [facility] 00:00:00 [facility] HEPATITIS A 2003-01-10 Completed [facility] 00:00:00 [facility] HEPATITIS A 2003-01-10 Completed [facility] 00:00:00 [facility] HEPATITIS A 2003-01-10 Completed [facility] 00:00:00 [facility] HEPATITIS A 2003-01-10 Completed [facility] 00:00:00 [facility] HEPATITIS A 2003-01-10 Completed [facility] 00:00:00 [facility] HEPATITIS A 2003-01-10 Completed [facility] 00:00:00 [facility] HEPATITIS A 2003-01-10 Completed [facility] 00:00:00 [facility] HEPATITIS A 2003-01-10 Completed [facility] 00:00:00 [facility] HEPATITIS A 2003-01-10 Completed [facility] 00:00:00 [facility] HEPATITIS A 2003-01-10 Completed [facility] 00:00:00 [facility] HEPATITIS A 2003-01-10 Completed [facility] 00:00:00 [facility] HEPATITIS A 2003-01-10 Completed [facility] 00:00:00 [facility] HEPATITIS A 2003-01-10 Completed [facility] 00:00:00 [facility] HEPATITIS A 2003-01-10 Completed [facility] 00:00:00 [facility] HEPATITIS A 2003-01-10 Completed [facility] 00:00:00 [facility] HEPATITIS A 2003-01-10 Completed [facility] 00:00:00 [facility] HEPATITIS A 2003-01-10 Completed [facility] 00:00:00 [facility] HEPATITIS A 2003-01-10 Completed [facility] 00:00:00 [facility] HEPATITIS A 2003-01-10 Completed [facility] 00:00:00 [facility] HEPATITIS A 2003-01-10 Completed [facility] 00:00:00 [facility] HEPATITIS A 2003-01-10 Completed [facility] 00:00:00 [facility] HEPATITIS A 2003-01-10 Completed [facility] 00:00:00 [facility] HEPATITIS A 2003-01-10 Completed [facility] 00:00:00 [facility] HEPATITIS A 2003-01-10 Completed [facility] 00:00:00 [facility] HEPATITIS A 2003-01-10 Completed [facility] 00:00:00 [facility] HEPATITIS A 2003-01-10 Completed [facility] 00:00:00 [facility] HEPATITIS A 2003-01-10 Completed [facility] 00:00:00 [facility] HEPATITIS A 2003-01-10 Completed [facility] 00:00:00 [facility] HEPATITIS A 2003-01-10 Completed [facility] 00:00:00 [facility] HEPATITIS A 2003-01-10 Completed [facility] 00:00:00 [facility] HEPATITIS A 2003-01-10 Completed [facility] 00:00:00 [facility] HEPATITIS A 2003-01-10 Completed [facility] 00:00:00 [facility] HEPATITIS A 2003-01-10 Completed [facility] 00:00:00 [facility] HEPATITIS A 2003-01-10 Completed [facility] 00:00:00 [facility] HEPATITIS A 2003-01-10 Completed [facility] 00:00:00 [facility] HEPATITIS A 2003-01-10 Completed [facility] 00:00:00 [facility] HEPATITIS A 2003-01-10 Completed [facility] 00:00:00 [facility] HEPATITIS A 2003-01-10 Completed [facility] 00:00:00 [facility] HEPATITIS A 2003-01-10 Completed [facility] 00:00:00 [facility] HEPATITIS A 2003-01-10 Completed [facility] 00:00:00 [facility] HEPATITIS A 2003-01-10 Completed [facility] 00:00:00 [facility] HEPATITIS A 2003-01-10 Completed [facility] 00:00:00 [facility] HEPATITIS A 2003-01-10 Completed [facility] 00:00:00 [facility] HEPATITIS A 2003-01-10 Completed [facility] 00:00:00 [facility] HEPATITIS A 2003-01-10 Completed [facility] 00:00:00 [facility] DTAP 2002-05-17 Completed [facility] 00:00:00 [facility] MMR 2002-05-17 Completed [facility] 00:00:00 [facility] Polio (IPV/OPV) 2002-05-17 Completed [facility] 00:00:00 [facility] Varicella 2002-05-17 Completed University of (varivax)(chicken 00:00:00 [facility] edical pox) Branch Polio (IPV/OPV) 2002-05-17 Completed Universit [facility] of 00:00:00 [facility] DTAP 2002-05-17 Completed [facility] 00:00:00 [facility] HIB 4 Dose Schedule 2002-05-17 Completed Unive rsity of 00:00:00 [facility] MMR 2002-05-17 Completed [facility] 00:00:00 [facility] Polio (IPV/OPV) 2002-05-17 Completed [facility] 00:00:00 [facility] Varicella 2002-05-17 Completed [facility] (varivax)(chicken 00:00:00 [facility] pox) [facility] Varicella 2002-05-17 Completed [facility] (varivax)(chicken 00:00:00 [facility] pox) [facility] DTAP 2002-05-17 Completed [facility] 00:00:00 [facility] HIB 4 Dose Schedule 2002-05-17 Completed [facility] of 00:00:00 [facility] MMR 2002-05-17 Completed [facility] 00:00:00 [facility] Polio (IPV/OPV) 2002-05-17 Completed [facility] 00:00:00 [facility] Varicella 2002-05-17 Completed [facility] (varivax)(chicken 00:00:00 [facility] pox) [facility] DTAP 2002-05-17 Completed [facility] 00:00:00 [facility] HIB 4 Dose Schedule 2002-05-17 Completed [facility] of 00:00:00 [facility] MMR 2002-05-17 Completed [facility] 00:00:00 [facility] Polio (IPV/OPV) 2002-05-17 Completed [facility] 00:00:00 [facility] Varicella 2002-05-17 Completed [facility] (varivax)(chicken 00:00:00 [facility] pox) [facility] DTAP 2002-05-17 Completed [facility] 00:00:00 [facility] HIB 4 Dose Schedule 2002-05-17 Completed [facility] of 00:00:00 [facility] MMR 2002-05-17 Completed [facility] 00:00:00 [facility] Polio (IPV/OPV) 2002-05-17 Completed [facility] 00:00:00 [facility] Varicella 2002-05-17 Completed [facility] (varivax)(chicken 00:00:00 [facility] pox) [facility] DTAP 2002-05-17 Completed [facility] 00:00:00 [facility] DTAP 2002-05-17 Completed [facility] 00:00:00 [facility] HIB 4 Dose Schedule 2002-05-17 Completed [facility] 00:00:00 [facility] MMR 2002-05-17 Completed [facility] 00:00:00 [facility] Polio (IPV/OPV) 2002-05-17 Completed [facility] 00:00:00 [facility] Varicella 2002-05-17 Completed [facility] (varivax)(chicken 00:00:00 [facility] pox) [facility] DTAP 2002-05-17 Completed [facility] 00:00:00 [facility] HIB 4 Dose Schedule 2002-05-17 Completed [facility] 00:00:00 [facility] HIB 4 Dose Schedule 2002-05-17 Completed [facility] rs[facility] of 00:00:00 [facility] MMR 2002-05-17 Completed [facility] 00:00:00 [facility] Polio (IPV/OPV) 2002-05-17 Completed [facility] 00:00:00 [facility] Varicella 2002-05-17 Completed [facility] (varivax)(chicken 00:00:00 [place] [facility] pox) [facility] DTAP 2002-05-17 Completed [facility] 00:00:00 [facility] HIB 4 Dose Schedule 2002-05-17 Completed [facility] of 00:00:00 [facility] MMR 2002-05-17 Completed [facility] 00:00:00 [facility] Polio (IPV/OPV) 2002-05-17 Completed [facility] 00:00:00 [facility] Varicella 2002-05-17 Completed [facility] (varivax)(chicken 00:00:00 [place] [facility] pox) [facility] DTAP 2002-05-17 Completed [facility] 00:00:00 [facility] HIB 4 Dose Schedule 2002-05-17 Completed [facility] of 00:00:00 [facility] MMR 2002-05-17 Completed [facility] 00:00:00 [facility] MMR 2002-05-17 Completed [facility] 00:00:00 [facility] Polio (IPV/OPV) 2002-05-17 Completed [facility] 00:00:00 [facility] Varicella 2002-05-17 Completed [facility] (varivax)(chicken 00:00:00 [place] [facility] pox) [facility] DTAP 2002-05-17 Completed [facility] 00:00:00 [facility] HIB 4 Dose Schedule 2002-05-17 Completed [facility] 00:00:00 [facility] MMR 2002-05-17 Completed [facility] 00:00:00 [facility] Polio (IPV/OPV) 2002-05-17 Completed [facility] 00:00:00 [facility] Polio (IPV/OPV) 2002-05-17 Completed [facility] 00:00:00 [facility] Varicella 2002-05-17 Completed [facility] (varivax)(chicken 00:00:00 [place] [facility] pox) [facility] Varicella 2002-05-17 Completed [facility] (varivax)(chicken 00:00:00 [place] [facility] pox) [facility] DTAP 2002-05-17 Completed [facility] 00:00:00 [facility] HIB 4 Dose Schedule 2002-05-17 Completed [facility] 00:00:00 [facility] MMR 2002-05-17 Completed [facility] 00:00:00 [facility] Polio (IPV/OPV) 2002-05-17 Completed [facility] 00:00:00 [facility] Varicella 2002-05-17 Completed [facility] (varivax)(chicken 00:00:00 [place] [facility] pox) [facility] DTAP 2002-05-17 Completed [facility] 00:00:00 [facility] HIB 4 Dose Schedule 2002-05-17 Completed [facility] 00:00:00 [facility] MMR 2002-05-17 Completed [facility] 00:[facility]:00 [facility] [facility] ([facility]/OPV[facility] 2002-05-17 Completed [facility] 00:[facility]00 [facility] Varicella 2002-05-17 Completed [facility] (varivax)(chicken 00:00:00 [place] [facility] DTAP 2002-05-17 Completed [facility] 00:00:00 [facility] HIB 4 Dose Schedule 2002-05-17 Completed [facility] 00:00:00 [facility] MMR 2002-05-17 Completed [facility] 00:00:00 [facility] DTAP 2002-05-17 Completed [facility] 00:00:00 [facility] Polio (IPV/OPV) 2002-05-17 Completed [facility] 00:00:00 [facility] Varicella 2002-05-17 Completed [facility] (varivax)(chicken 00:00:00 [facility] edical pox) [facility] DTAP 2002-05-17 Completed [facility] 00:00:00 [facility] HIB 4 Dose Schedule 2002-05-17 Completed [facility] 00:00:00 [facility] HIB 4 Dose Schedule 2002-05-17 Completed [facility] 00:00:00 [facility] MMR 2002-05-17 Completed [facility] 00:00:00 [facility] Polio (IPV/OPV) 2002-05-17 Completed [facility] 00:00:00 [facility] Varicella 2002-05-17 Completed [facility] (varivax)(chicken 00:00:00 [facility] edical pox) [facility] HIB 4 Dose Schedule 2002-05-17 Completed [facility] 00:00:00 [facility] DTAP 2002-05-17 Completed [facility] 00:00:00 [facility] HIB 4 Dose Schedule 2002-05-17 Completed [facility] 00:00:00 [facility] MMR 2002-05-17 Completed [facility] 00:00:00 [facility] Polio (IPV/OPV) 2002-05-17 Completed [facility] 00:00:00 [facility] Varicella 2002-05-17 Completed [facility] (varivax)([facility]icken 00:00:00 [place] [facility] DTAP 2002-05-17 Completed [facility] 00:00:00 [facility] HIB 4 Dose Schedule 2002-05-17 Completed [facility] 00:00:00 [facility] MMR 2002-05-17 Completed [facility] 00:00:00 [facility] Polio (IPV/OPV) 2002-05-17 Completed [facility] 00:00:00 [facility] Varicella 2002-05-17 Completed [facility] (varivax)(chicken 00:00:00 [facility] edical pox) [facility] DTAP 2002-05-17 Completed [facility] 00:00:00 [facility] MMR 2002-05-17 Completed [facility] 00:00:00 [facility] HIB 4 Dose Schedule 2002-05-17 Completed [facility] 00:00:00 [facility] MMR 2002-05-17 Completed [facility] 00:00:00 [facility] Polio (IPV/OPV) 2002-05-17 Completed [facility] 00:00:00 [facility] Varicella 2002-05-17 Completed [facility] (varivax)(chicken 00:00:00 [facility] edical pox) [facility] DTAP 2002-05-17 Completed [facility] 00:00:00 [facility] HIB 4 Dose Schedule 2002-05-17 Completed [facility] 00:00:00 [facility] MMR 2002-05-17 Completed [facility] 00:00:00 [facility] Polio (IPV/OPV) 2002-05-17 Completed [facility] 00:00:00 [facility] Polio (IPV/OPV) 2002-05-17 Completed [facility] 00:00:00 [facility] Varicella 2002-05-17 Completed [facility] (varivax)(chicken 00:00:00 [facility] edical pox) Branch DTAP 2002-05-17 Completed [facility] 00:00:00 [facility] HIB 4 Dose Schedule 2002-05-17 Completed [facility] 00:00:00 [facility] MMR 2002-05-17 Completed [facility] 00:00:00 [facility] Varicella 2002-05-17 Completed [facility] (varivax)(chicken 00:00:00 [place] [facility] Polio (IPV/OPV) 2002-05-17 Completed [facility] 00:00:00 [facility] Varicella 2002-05-17 Completed [facility] (varivax)(chicken 00:00:00 [place] [facility] DTAP 2002-05-17 Completed [facility] 00:00:00 [facility] HIB 4 Dose Schedule 2002-05-17 Completed [facility] 00:00:00 [facility] MMR 2002-05-17 Completed [facility] 00:00:00 [facility] Polio (IPV/OPV) 2002-05-17 Completed [facility] 00:00:00 [facility] Varicella 2002-05-17 Completed [facility] (varivax)(chicken 00:00:00 [place] [facility] DTAP 2002-05-17 Completed [facility] 00:00:00 [facility] HIB 4 Dose Schedule 2002-05-17 Completed [facility] 00:00:00 [facility] MMR 2002-05-17 Completed [facility] 00:00:00 [facility] Polio (IPV/OPV) 2002-05-17 Completed [facility] 00:00:00 [facility] Varicella 2002-05-17 Completed [facility] (varivax)(chicken 00:00:00 [place] [facility] DTAP 2002-05-17 Completed [facility] 00:00:00 [facility] HIB 4 Dose Schedule 2002-05-17 Completed [facility] 00:00:00 [facility] MMR 2002-05-17 Completed [facility] 00:00:00 [facility] Polio (IPV/OPV) 2002-05-17 Completed [facility] 00:00:00 [facility] Varicella 2002-05-17 Completed [facility] (varivax)(chicken 00:00:00 [place] [facility] DTAP 2002-05-17 Completed [facility] 00:00:00 [facility] HIB 4 Dose Schedule 2002-05-17 Completed [facility] 00:00:00 [facility] MMR 2002-05-17 Completed [facility] 00:00:00 [facility] Polio (IPV/OPV) 2002-05-17 Completed [facility] 00:00:00 [facility] Varicella 2002-05-17 Completed [facility] (varivax)(chicken 00:00:00 [place] [facility] DTAP 2002-05-17 Completed [facility] 00:00:00 [facility] HIB 4 Dose Schedule 2002-05-17 Completed [facility] 00:00:00 [facility] MMR 2002-05-17 Completed [facility] 00:00:00 [facility] Polio (IPV/OPV) 2002-05-17 Completed [facility] 00:00:00 [facility] Varicella 2002-05-17 Completed [facility] (varivax)(chicken 00:00:00 [place] [facility] DTAP 2002-05-17 Completed [facility] 00:00:00 [facility] DTAP 2002-05-17 Completed [facility] 00:00:00 [facility] HIB 4 Dose Schedule 2002-05-17 Completed [facility] 00:00:00 [facility] MMR 2002-05-17 Completed [facility] 00:00:00 [facility] Polio (IPV/OPV) 2002-05-17 Completed [facility] 00:00:00 [facility] Varicella 2002-05-17 Completed [facility] (varivax)(chicken 00:00:00 [place] [facility] HIB 4 Dose Schedule 2002-05-17 Completed [facility] 00:00:00 [facility] DTAP 2002-05-17 Completed [facility] 00:00:00 [facility] HIB 4 Dose Schedule 2002-05-17 Completed [facility] 00:00:00 [facility] MMR 2002-05-17 Completed [facility] 00:00:00 [facility] Polio (IPV/OPV) 2002-05-17 Completed [facility] 00:00:00 [facility] Varicella 2002-05-17 Completed [facility] (varivax)(chicken 00:00:00 [place] [facility] DTAP 2002-05-17 Completed [facility] 00:00:00 [facility] HIB 4 Dose Schedule 2002-05-17 Completed [facility] 00:00:00 [facility] MMR 2002-05-17 Completed [facility] 00:00:00 [facility] Polio (IPV/OPV) 2002-05-17 Completed [facility] 00:00:00 [facility] Varicella 2002-05-17 Completed [facility] (varivax)(chicken 00:00:00 [place] [facility] MMR 2002-05-17 Completed [facility] 00:00:00 [facility] DTAP 2002-05-17 Completed [facility] 00:00:00 [facility] HIB 4 Dose Schedule 2002-05-17 Completed [facility] 00:00:00 [facility] MMR 2002-05-17 Completed [facility] 00:00:00 [facility] Polio (IPV/OPV) 2002-05-17 Completed [facility] 00:00:00 [facility] Varicella 2002-05-17 Completed [facility] (varivax)(chicken 00:00:00 [place] [facility] Polio (IPV/OPV) 2002-05-17 Completed [facility] 00:00:00 [facility] DTAP 2002-05-17 Completed [facility] 00:00:00 [facility] Varicella 2002-05-17 Completed [facility] (varivax)(chicken 00:00:00 [place] [facility] HIB 4 Dose Schedule 2002-05-17 Completed [facility] 00:00:00 [facility] MMR 2002-05-17 Completed [facility] 00:00:00 [facility] Polio (IPV/OPV) 2002-05-17 Completed [facility] 00:00:00 [facility] Varicella 2002-05-17 Completed [facility] (varivax)(chicken 00:00:00 [place] [facility] DTAP 2002-05-17 Completed [facility] 00:00:00 [facility] HIB 4 Dose Schedule 2002-05-17 Completed [facility] 00:00:00 [facility] MMR 2002-05-17 Completed [facility] 00:00:00 [facility] Polio (IPV/OPV) 2002-05-17 Completed [facility] 00:00:00 [facility] Varicella 2002-05-17 Completed [facility] (varivax)(chicken 00:00:00 [place] [facility] DTAP 2002-05-17 Completed [facility] 00:00:00 [facility] HIB 4 Dose Schedule 2002-05-17 Completed [facility] 00:00:00 [facility] MMR 2002-05-17 Completed [facility] 00:00:00 [facility] Polio (IPV/OPV) 2002-05-17 Completed [facility] 00:00:00 [facility] Varicella 2002-05-17 Completed [facility] (varivax)(chicken 00:00:00 [place] [facility] DTAP 2002-05-17 Completed [facility] 00:00:00 [facility] HIB 4 Dose Schedule 2002-05-17 Completed [facility] 00:00:00 [facility] MMR 2002-05-17 Completed [facility] 00:00:00 [facility] Polio (IPV/OPV) 2002-05-17 Completed [facility] 00:00:00 [facility] MMR 2002-05-17 Completed [facility] 00:00:00 [facility] Varicella 2002-05-17 Completed [facility] (varivax)(chicken 00:00:00 [place] [facility] DTAP 2002-05-17 Completed [facility] 00:00:00 [facility] HIB 4 Dose Schedule 2002-05-17 Completed [facility] 00:00:00 [facility] MMR 2002-05-17 Completed [facility] 00:00:00 [facility] Polio (IPV/OPV) 2002-05-17 Completed [facility] 00:00:00 [facility] DTAP 2002-05-17 Completed [facility] 00:00:00 [facility] Varicella 2002-05-17 Completed [facility] (varivax)(chicken 00:00:00 [place] [facility] DTAP 2002-05-17 Completed [facility] 00:00:00 [facility] HIB 4 Dose Schedule 2002-05-17 Completed [facility] 00:00:00 [facility] MMR 2002-05-17 Completed [facility] 00:00:00 [facility] Polio (IPV/OPV) 2002-05-17 Completed [facility] 00:00:00 [facility] Varicella 2002-05-17 Completed [facility] (varivax)(chicken 00:00:00 [place] [facility] HIB 4 Dose Schedule 2002-05-17 Completed [facility] 00:00:00 [facility] DTAP 2002-05-17 Completed [facility] 00:00:00 [facility] HIB 4 Dose Schedule 2002-05-17 Completed [facility] 00:00:00 [facility] MMR 2002-05-17 Completed [facility] 00:00:00 [facility] Polio (IPV/OPV) 2002-05-17 Completed [facility] 00:00:00 [facility] Varicella 2002-05-17 Completed [facility] (varivax)(chicken 00:00:00 [place] [facility] MMR 2002-05-17 Completed [facility] 00:00:00 [facility] Polio (IPV/OPV) 2002-05-17 Completed [facility] 00:00:00 [facility] Varicella 2002-05-17 Completed [facility] (varivax)(chicken 00:00:00 [place] [facility] Polio (IPV/OPV) 2002-05-17 Completed [facility] 00:00:00 [facility] DTAP 2002-05-17 Completed [facility] 00:00:00 [facility] HIB 4 Dose Schedule 2002-05-17 Completed [facility] 00:00:00 [facility] MMR 2002-05-17 Completed [facility] 00:00:00 [facility] Varicella 2002-05-17 Completed [facility] (varivax)(chicken 00:00:00 [place] [facility] Polio (IPV/OPV) 2002-05-17 Completed [facility] 00:00:00 [facility] Varicella 2002-05-17 Completed [facility] (varivax)(chicken 00:00:00 [place] [facility] DTAP 2002-05-17 Completed [facility] 00:00:00 [facility] HIB 4 Dose Schedule 2002-05-17 Completed [facility] 00:00:00 [facility] MMR 2002-05-17 Completed [facility] 00:00:00 [facility] Polio (IPV/OPV) 2002-05-17 Completed [facility] 00:00:00 [facility] Varicella 2002-05-17 Completed [facility] (varivax)(chicken 00:00:00 [place] [facility] DTAP 2002-05-17 Completed [facility] 00:00:00 [facility] HIB 4 Dose Schedule 2002-05-17 Completed [facility] 00:00:00 [facility] MMR 2002-05-17 Completed [facility] 00:00:00 [facility] Polio (IPV/OPV) 2002-05-17 Completed [facility] 00:00:00 [facility] Varicella 2002-05-17 Completed [facility] (varivax)(chicken 00:00:00 [place] [facility] DTAP 2002-05-17 Completed [facility] 00:00:00 [facility] HIB 4 Dose Schedule 2002-05-17 Completed [facility] 00:00:00 [facility] MMR 2002-05-17 Completed [facility] 00:00:00 [facility] Polio (IPV/OPV) 2002-05-17 Completed [facility] 00:00:00 [facility] Varicella 2002-05-17 Completed [facility] (varivax)(chicken 00:00:00 [place] [facility] DTAP 2002-05-17 Completed [facility] 00:00:00 [facility] DTAP 2002-05-17 Completed [facility] 00:00:00 [facility] HIB 4 Dose Schedule 2002-05-17 Completed [facility] 00:00:00 [facility] MMR 2002-05-17 Completed [facility] 00:00:00 [facility] Polio (IPV/OPV) 2002-05-17 Completed [facility] 00:00:00 [facility] Varicella 2002-05-17 Completed [facility] (varivax)(chicken 00:00:00 [facility] edical pox) Branch HIB 4 Dose Schedule 2002-05-17 Completed [facility] 00:00:00 [facility] DTAP 2002-05-17 Completed [facility] 00:00:00 [facility] HIB 4 Dose Schedule 2002-05-17 Completed [facility] 00:00:00 [facility] MMR 2002-05-17 Completed [facility] 00:00:00 [facility] Polio (IPV/OPV) 2002-05-17 Completed [facility] 00:00:00 [facility] Varicella 2002-05-17 Completed [facility] (varivax)(chicken 00:00:00 [place] [facility] DTAP 2002-05-17 Completed [facility] 00:00:00 [facility] HIB 4 Dose Schedule 2002-05-17 Completed [facility] 00:00:00 [facility] MMR 2002-05-17 Completed [facility] 00:00:00 [facility] Polio (IPV/OPV) 2002-05-17 Completed [facility] 00:00:00 [facility] Varicella 2002-05-17 Completed [facility] (varivax)(chicken 00:00:00 [place] [facility] MMR 2002-05-17 Completed [facility] 00:00:00 [facility] DTAP 2002-05-17 Completed [facility] 00:00:00 [facility] HIB 4 Dose Schedule 2002-05-17 Completed [facility] 00:00:00 [facility] MMR 2002-05-17 Completed [facility] 00:00:00 [facility] Polio (IPV/OPV) 2002-05-17 Completed [facility] 00:00:00 [facility] Varicella 2002-05-17 Completed [facility] (varivax)(chicken 00:00:00 [place] [facility] Polio (IPV/OPV) 2002-05-17 Completed [facility] 00:00:00 [facility] DTAP 2002-05-17 Completed [facility] 00:00:00 [facility] HIB 4 Dose Schedule 2002-05-17 Completed [facility] 00:00:00 [facility] MMR 2002-05-17 Completed [facility] 00:00:00 [facility] Polio (IPV/OPV) 2002-05-17 Completed [facility] 00:00:00 [facility] Varicella 2002-05-17 Completed [facility] (varivax)(chicken 00:00:00 [place] [facility] Varicella 2002-05-17 Completed [facility] (varivax)(chicken 00:00:00 [place] [facility] DTAP 2002-05-17 Completed [facility] 00:00:00 [facility] HIB 4 Dose Schedule 2002-05-17 Completed [facility] 00:00:00 [facility] MMR 2002-05-17 Completed [facility] 00:00:00 [facility] Polio (IPV/OPV) 2002-05-17 Completed [facility] 00:00:00 [facility] Varicella 2002-05-17 Completed [facility] (varivax)(chicken 00:00:00 [place] [facility] DTAP 2002-05-17 Completed [facility] 00:00:00 [facility] HIB 4 Dose Schedule 2002-05-17 Completed [facility] 00:00:00 [facility] MMR 2002-05-17 Completed [facility] 00:00:00 [facility] Polio (IPV/OPV) 2002-05-17 Completed [facility] 00:00:00 [facility] Varicella 2002-05-17 Completed [facility] (varivax)(chicken 00:00:00 [place] [facility] DTAP 2002-05-17 Completed [facility] 00:00:00 [facility] HIB 4 Dose Schedule 2002-05-17 Completed [facility] 00:00:00 [facility] MMR 2002-05-17 Completed [facility] 00:00:00 [facility] Polio (IPV/OPV) 2002-05-17 Completed [facility] 00:00:00 [facility] Varicella 2002-05-17 Completed [facility] (varivax)(chicken 00:00:00 [place] [facility] DTAP 2002-05-17 Completed [facility] 00:00:00 [facility] HIB 4 Dose Schedule 2002-05-17 Completed [facility] 00:00:00 [facility] MMR 2002-05-17 Completed [facility] 00:00:00 [facility] Polio (IPV/OPV) 2002-05-17 Completed [facility] 00:00:00 [facility] Varicella 2002-05-17 Completed [facility] (varivax)(chicken 00:00:00 [place] [facility] DTAP 2002-05-17 Completed [facility] 00:00:00 [facility] HIB 4 Dose Schedule 2002-05-17 Completed [facility] 00:00:00 [facility] MMR 2002-05-17 Completed [facility] 00:00:00 [facility] Polio (IPV/OPV) 2002-05-17 Completed [facility] 00:00:00 [facility] DTAP 2002-05-17 Completed [facility] 00:00:00 [facility] Varicella 2002-05-17 Completed [facility] (varivax)(chicken 00:00:00 [place] [facility] HIB 4 Dose Schedule 2002-05-17 Completed [facility] 00:00:00 [facility] DTAP 2002-05-17 Completed [facility] 00:00:00 [facility] HIB 4 Dose Schedule 2002-05-17 Completed [facility] 00:00:00 [facility] MMR 2002-05-17 Completed [facility] 00:00:00 [facility] Polio (IPV/OPV) 2002-05-17 Completed [facility] 00:00:00 [facility] Varicella 2002-05-17 Completed [facility] (varivax)(chicken 00:00:00 [facility] edical pox) Branch MMR 2002-05-17 Completed [facility] 00:00:00 [facility] DTAP 2002-05-17 Completed [facility] 00:00:00 [facility] HIB 4 Dose Schedule 2002-05-17 Completed [facility] 00:00:00 [facility] Hep B, Adol or Pedi 2001-04-22 Completed [facility] Dosage 00:00:00 [facility] Polio (IPV/OPV) 2001-04-22 Completed [facility] 00:00:00 [facility] Polio (IPV/OPV) 2001-04-22 Completed [facility] 00:00:00 [facility] DTAP 2001-04-22 Completed [facility] 00:00:00 [facility] HIB 4 Dose Schedule 2001-04-22 Completed [facility] 00:00:00 [facility] Hep B, Adol or Pedi 2001-04-22 Completed [facility] Dosage 00:00:00 [facility] Polio (IPV/OPV) 2001-04-22 Completed [facility] 00:00:00 [facility] DTAP 2001-04-22 Completed [facility] 00:00:00 [facility] HIB 4 Dose Schedule 2001-04-22 Completed [facility] 00:00:00 [facility] Hep B, Adol or Pedi 2001-04-22 Completed [facility] Dosage 00:00:00 [facility] Polio (IPV/OPV) 2001-04-22 Completed [facility] 00:00:00 [facility] DTAP 2001-04-22 Completed [facility] 00:00:00 [facility] HIB 4 Dose Schedule 2001-04-22 Completed [facility] 00:00:00 [facility] Hep B, Adol or Pedi 2001-04-22 Completed [facility] Dosage 00:00:00 [facility] Polio (IPV/OPV) 2001-04-22 Completed [facility] 00:00:00 [facility] DTAP 2001-04-22 Completed [facility] 00:00:00 [facility] HIB 4 Dose Schedule 2001-04-22 Completed [facility] 00:00:00 [facility] Hep B, Adol or Pedi 2001-04-22 Completed [facility] Dosage 00:00:00 [facility] Polio (IPV/OPV) 2001-04-22 Completed [facility] 00:00:00 [facility] DTAP 2001-04-22 Completed [facility] 00:00:00 [facility] DTAP 2001-04-22 Completed [facility] 00:00:00 [facility] HIB 4 Dose Schedule 2001-04-22 Completed [facility] 00:00:00 [facility] Hep B, Adol or Pedi 2001-04-22 Completed [facility] Dosage 00:00:00 [facility] Polio (IPV/OPV) 2001-04-22 Completed [facility] 00:00:00 [facility] HIB 4 Dose Schedule 2001-04-22 Completed [facility] 00:00:00 [facility] DTAP 2001-04-22 Completed [facility] 00:00:00 [facility] HIB 4 Dose Schedule 2001-04-22 Completed [facility] 00:00:00 [facility] Hep B, Adol or Pedi 2001-04-22 Completed [facility] Dosage 00:00:00 [facility] Polio (IPV/OPV) 2001-04-22 Completed [facility] 00:00:00 [facility] DTAP 2001-04-22 Completed [facility] 00:00:00 [facility] HIB 4 Dose Schedule 2001-04-22 Completed [facility] 00:00:00 [facility] Hep B, Adol or Pedi 2001-04-22 Completed [facility] Dosage 00:00:00 [facility] Polio (IPV/OPV) 2001-04-22 Completed [facility] 00:00:00 [facility] Hep B, Adol or Pedi 2001-04-22 Completed [facility] Dosage 00:00:00 [facility] DTAP 2001-04-22 Completed [facility] 00:00:00 [facility] HIB 4 Dose Schedule 2001-04-22 Completed [facility] 00:00:00 [facility] Hep B, Adol or Pedi 2001-04-22 Completed [facility] Dosage 00:00:00 [facility] Polio (IPV/OPV) 2001-04-22 Completed [facility] 00:00:00 [facility] DTAP 2001-04-22 Completed [facility] 00:00:00 [facility] HIB 4 Dose Schedule 2001-04-22 Completed [facility] 00:00:00 [facility] Polio (IPV/OPV) 2001-04-22 Completed [facility] 00:00:00 [facility] Hep B, Adol or Pedi 2001-04-22 Completed [facility] Dosage 00:00:00 [facility] Polio (IPV/OPV) 2001-04-22 Completed [facility] 00:00:00 [facility] DTAP 2001-04-22 Completed [facility] 00:00:00 [facility] HIB 4 Dose Schedule 2001-04-22 Completed [facility] 00:00:00 [facility] Hep B, Adol or Pedi 2001-04-22 Completed [facility] Dosage 00:00:00 [facility] Polio (IPV/OPV) 2001-04-22 Completed [facility]00 [facility] HIB 4 Dose Schedule 2001-04-22 Completed [facility] 00:00:00 [facility] DTAP 2001-04-22 Completed [facility] 00:00:00 [facility] HIB 4 Dose Schedule 2001-04-22 Completed [facility] 00:00:00 [facility] Hep B, Adol or Pedi 2001-04-22 Completed [facility] Dosage 00:00:00 [facility] Polio (IPV/OPV) 2001-04-22 Completed [facility] 00:00:00 [facility] DTAP 2001-04-22 Completed [facility] 00:00:00 [facility] HIB 4 Dose Schedule 2001-04-22 Completed [facility] 00:00:00 [facility] DTAP 2001-04-22 Completed [facility] 00:00:00 [facility] Hep B, Adol or Pedi 2001-04-22 Completed [facility] Dosage 00:00:00 [facility] Polio (IPV/OPV) 2001-04-22 Completed [facility] 00:00:00 [facility] DTAP 2001-04-22 Completed [facility] 00:00:00 [facility] HIB 4 Dose Schedule 2001-04-22 Completed [facility] 00:00:00 [facility] Hep B, Adol or Pedi 2001-04-22 Completed [facility] Dosage 00:00:00 [facility] Polio (IPV/OPV) 2001-04-22 Completed [facility] 00:00:00 [facility] HIB 4 Dose Schedule 2001-04-22 Completed [facility] 00:00:00 [facility] DTAP 2001-04-22 Completed [facility] 00:00:00 [facility] HIB 4 Dose Schedule 2001-04-22 Completed [facility] 00:00:00 [facility] Hep B, Adol or Pedi 2001-04-22 Completed [facility] Dosage 00:00:00 [facility] Polio (IPV/OPV) 2001-04-22 Completed [facility] 00:00:00 [facility] DTAP 2001-04-22 Completed [facility] 00:00:00 [facility] HIB 4 Dose Schedule 2001-04-22 Completed [facility] 00:00:00 [facility] Hep B, Adol or Pedi 2001-04-22 Completed [facility] Dosage 00:00:00 [facility] Polio (IPV/OPV) 2001-04-22 Completed [facility] 00:00:00 [facility] Hep B, Adol or Pedi 2001-04-22 Completed [facility] Dosage 00:00:00 [facility] DTAP 2001-04-22 Completed [facility] 00:00:00 [facility] HIB 4 Dose Schedule 2001-04-22 Completed [facility] 00:00:00 [facility] Hep B, Adol or Pedi 2001-04-22 Completed [facility] Dosage 00:00:00 [facility] Polio (IPV/OPV) 2001-04-22 Completed [facility] 00:00:00 [facility] DTAP 2001-04-22 Completed [facility] 00:00:00 [facility] HIB 4 Dose Schedule 2001-04-22 Completed [facility] 00:00:00 [facility] Polio (IPV/OPV) 2001-04-22 Completed [facility] 00:00:00 [facility] Hep B, Adol or Pedi 2001-04-22 Completed [facility] Dosage 00:00:00 [facility] Polio (IPV/OPV) 2001-04-22 Completed [facility] 00:00:00 [facility] DTAP 2001-04-22 Completed [facility] 00:00:00 [facility] HIB 4 Dose Schedule 2001-04-22 Completed [facility] 00:00:00 [facility] Hep B, Adol or Pedi 2001-04-22 Completed [facility] Dosage 00:00:00 [facility] Polio (IPV/OPV) 2001-04-22 Completed [facility] 00:00:00 [facility] DTAP 2001-04-22 Completed [facility] 00:00:00 [facility] HIB 4 Dose Schedule 2001-04-22 Completed [facility] 00:00:00 [facility] Hep B, Adol or Pedi 2001-04-22 Completed [facility] Dosage 00:00:00 [facility] Polio (IPV/OPV) 2001-04-22 Completed [facility] 00:00:00 [facility] DTAP 2001-04-22 Completed [facility] 00:00:00 [facility] HIB 4 Dose Schedule 2001-04-22 Completed [facility] 00:00:00 [facility] Hep B, Adol or Pedi 2001-04-22 Completed [facility] Dosage 00:00:00 [facility] Polio (IPV/OPV) 2001-04-22 Completed [facility] 00:00:00 [facility] DTAP 2001-04-22 Completed [facility] 00:00:00 [facility] HIB 4 Dose Schedule 2001-04-22 Completed [facility] 00:00:00 [facility] Hep B, Adol or Pedi 2001-04-22 Completed [facility] Dosage 00:00:00 [facility] Polio (IPV/OPV) 2001-04-22 Completed [facility] 00:00:00 [facility] DTAP 2001-04-22 Completed [facility] 00:00:00 [facility] HIB 4 Dose Schedule 2001-04-22 Completed [facility] 00:00:00 [facility] Hep B, Adol or Pedi 2001-04-22 Completed [facility] Dosage 00:00:00 [facility] Polio (IPV/OPV) 2001-04-22 Completed [facility] 00:00:00 [facility] DTAP 2001-04-22 Completed [facility] 00:00:00 [facility] HIB 4 Dose Schedule 2001-04-22 Completed [facility] 00:00:00 [facility] Hep B, Adol or Pedi 2001-04-22 Completed [facility] Dosage 00:00:00 [facility] Polio (IPV/OPV) 2001-04-22 Completed [facility] 00:00:00 [facility] DTAP 2001-04-22 Completed [facility] 00:00:00 [facility] DTAP 2001-04-22 Completed [facility] 00:00:00 [facility] HIB 4 Dose Schedule 2001-04-22 Completed [facility] 00:00:00 [facility] Hep B, Adol or Pedi 2001-04-22 Completed [facility] Dosage 00:00:00 [facility] Polio (IPV/OPV) 2001-04-22 Completed [facility] 00:00:00 [facility] HIB 4 Dose Schedule 2001-04-22 Completed [facility] 00:00:00 [facility] DTAP 2001-04-22 Completed [facility] 00:00:00 [facility] HIB 4 Dose Schedule 2001-04-22 Completed [facility] 00:00:00 [facility] Hep B, Adol or Pedi 2001-04-22 Completed [facility] Dosage 00:00:00 [facility] Polio (IPV/OPV) 2001-04-22 Completed [facility] 00:00:00 [facility] DTAP 2001-04-22 Completed [facility] 00:00:00 [facility] HIB 4 Dose Schedule 2001-04-22 Completed [facility] 00:00:00 [facility] Hep B, Adol or Pedi 2001-04-22 Completed [facility] Dosage 00:00:00 [facility] Hep B, Adol or Pedi 2001-04-22 Completed [facility] Dosage 00:00:00 [facility] Polio (IPV/OPV) 2001-04-22 Completed [facility] 00:00:00 [facility] DTAP 2001-04-22 Completed [facility] 00:00:00 [facility] HIB 4 Dose Schedule 2001-04-22 Completed [facility] 00:00:00 [facility] Hep B, Adol or Pedi 2001-04-22 Completed [facility] Dosage 00:00:00 [facility] Hep B, Adol or Pedi 2001-04-22 Completed [facility] Dosage 00:00:00 [facility] Polio (IPV/OPV) 2001-04-22 Completed [facility] 00:00:00 [facility] Polio (IPV/OPV) 2001-04-22 Completed [facility] 00:00:00 [facility] DTAP 2001-04-22 Completed [facility] 00:00:00 [facility] HIB 4 Dose Schedule 2001-04-22 Completed [facility] 00:00:00 [facility] Hep B, Adol or Pedi 2001-04-22 Completed [facility] Dosage 00:00:00 [facility] Polio (IPV/OPV) 2001-04-22 Completed [facility] 00:00:00 [facility] DTAP 2001-04-22 Completed [facility] 00:00:00 [facility] HIB 4 Dose Schedule 2001-04-22 Completed [facility] 00:00:00 [facility] Hep B, Adol or Pedi 2001-04-22 Completed [facility] Dosage 00:00:00 [facility] Polio (IPV/OPV) 2001-04-22 Completed [facility] 00:00:00 [facility] DTAP 2001-04-22 Completed [facility] 00:00:00 [facility] HIB 4 Dose Schedule 2001-04-22 Completed [facility] 00:00:00 [facility] Hep B, Adol or Pedi 2001-04-22 Completed [facility] Dosage 00:00:00 [facility] Polio (IPV/OPV) 2001-04-22 Completed [facility] 00:00:00 [facility] DTAP 2001-04-22 Completed [facility] 00:00:00 [facility] HIB 4 Dose Schedule 2001-04-22 Completed [facility] 00:00:00 [facility] Hep B, Adol or Pedi 2001-04-22 Completed [facility] Dosage 00:00:00 [facility] Polio (IPV/OPV) 2001-04-22 Completed [facility] 00:00:00 [facility] DTAP 2001-04-22 Completed [facility] 00:00:00 [facility] HIB 4 Dose Schedule 2001-04-22 Completed [facility] 00:00:00 [facility] DTAP 2001-04-22 Completed [facility] 00:00:00 [facility] Hep B, Adol or Pedi 2001-04-22 Completed [facility] Dosage 00:00:00 [facility] Polio (IPV/OPV) 2001-04-22 Completed [facility] 00:00:00 [facility] DTAP 2001-04-22 Completed [facility] 00:00:00 [facility] HIB 4 Dose Schedule 2001-04-22 Completed [facility] 00:00:00 [facility] Hep B, Adol or Pedi 2001-04-22 Completed [facility] Dosage 00:00:00 [facility] HIB 4 Dose Schedule 2001-04-22 Completed [facility] 00:00:00 [facility] Polio (IPV/OPV) 2001-04-22 Completed [facility] 00:00:00 [facility] DTAP 2001-04-22 Completed [facility] 00:00:00 [facility] HIB 4 Dose Schedule 2001-04-22 Completed [facility] 00:00:00 [facility] Hep B, Adol or Pedi 2001-04-22 Completed [facility] Dosage 00:00:00 [facility] Polio (IPV/OPV) 2001-04-22 Completed [facility] 00:00:00 [facility] Hep B, Adol or Pedi 2001-04-22 Completed [facility] Dosage 00:00:00 [facility] Polio (IPV/OPV) 2001-04-22 Completed [facility] 00:00:00 [facility] Polio (IPV/OPV) 2001-04-22 Completed [facility] 00:00:00 [facility] DTAP 2001-04-22 Completed [facility] 00:00:00 [facility] HIB 4 Dose Schedule 2001-04-22 Completed [facility] 00:00:00 [facility] Hep B, Adol or Pedi 2001-04-22 Completed [facility] Dosage 00:00:00 [facility] Polio (IPV/OPV) 2001-04-22 Completed [facility] 00:00:00 [facility] DTAP 2001-04-22 Completed [facility] 00:00:00 [facility] HIB 4 Dose Schedule 2001-04-22 Completed [facility] 00:00:00 [facility] Hep B, Adol or Pedi 2001-04-22 Completed [facility] Dosage 00:00:00 [facility] Polio (IPV/OPV) 2001-04-22 Completed [facility] 00:00:00 [facility] DTAP 2001-04-22 Completed [facility] 00:00:00 [facility] HIB 4 Dose Schedule 2001-04-22 Completed [facility] 00:00:00 [facility] Hep B, Adol or Pedi 2001-04-22 Completed [facility] Dosage 00:00:00 [facility] Polio (IPV/OPV) 2001-04-22 Completed [facility] 00:00:00 [facility] DTAP 2001-04-22 Completed [facility] 00:00:00 [facility] HIB 4 Dose Schedule 2001-04-22 Completed [facility] 00:00:00 [facility] Hep B, Adol or Pedi 2001-04-22 Completed [facility] Dosage 00:00:00 [facility] DTAP 2001-04-22 Completed [facility] 00:00:00 [facility] Polio (IPV/OPV) 2001-04-22 Completed [facility] 00:00:00 [facility] DTAP 2001-04-22 Completed [facility] 00:00:00 [facility] HIB 4 Dose Schedule 2001-04-22 Completed [facility] 00:00:00 [facility] Hep B, Adol or Pedi 2001-04-22 Completed [facility] Dosage 00:00:00 [facility] Polio (IPV/OPV) 2001-04-22 Completed [facility] 00:00:00 [facility] HIB 4 Dose Schedule 2001-04-22 Completed [facility] 00:00:00 [facility] DTAP 2001-04-22 Completed [facility] 00:00:00 [facility] HIB 4 Dose Schedule 2001-04-22 Completed [facility] 00:00:00 [facility] Hep B, Adol or Pedi 2001-04-22 Completed [facility] Dosage 00:00:00 [facility] Polio (IPV/OPV) 2001-04-22 Completed [facility] 00:00:00 [facility] DTAP 2001-04-22 Completed [facility] 00:00:00 [facility] Hep B, Adol or Pedi 2001-04-22 Completed [facility] Dosage 00:00:00 [facility] HIB 4 Dose Schedule 2001-04-22 Completed [facility] 00:00:00 [facility] Hep B, Adol or Pedi 2001-04-22 Completed [facility] Dosage 00:00:00 [facility] Polio (IPV/OPV) 2001-04-22 Completed [facility] 00:00:00 [facility] DTAP 2001-04-22 Completed [facility] 00:00:00 [facility] HIB 4 Dose Schedule 2001-04-22 Completed [facility] 00:00:00 [facility] Hep B, Adol or Pedi 2001-04-22 Completed [facility] Dosage 00:00:00 [facility] Polio (IPV/OPV) 2001-04-22 Completed [facility] 00:00:00 [facility] Polio (IPV/OPV) 2001-04-22 Completed [facility] 00:00:00 [facility] DTAP 2001-04-22 Completed [facility] 00:00:00 [facility] HIB 4 Dose Schedule 2001-04-22 Completed [facility] 00:00:00 [facility] Hep B, Adol or Pedi 2001-04-22 Completed [facility] Dosage 00:00:00 [facility] Polio (IPV/OPV) 2001-04-22 Completed [facility] 00:00:00 [facility] DTAP 2001-04-22 Completed [facility] 00:00:00 [facility] HIB 4 Dose Schedule 2001-04-22 Completed [facility] 00:00:00 [facility] Hep B, Adol or Pedi 2001-04-22 Completed [facility] Dosage 00:00:00 [facility] Polio (IPV/OPV) 2001-04-22 Completed [facility] 00:00:00 [facility] DTAP 2001-04-22 Completed [facility] 00:00:00 [facility] HIB 4 Dose Schedule 2001-04-22 Completed [facility] 00:00:00 [facility] Hep B, Adol or Pedi 2001-04-22 Completed [facility] Dosage 00:00:00 [facility] Polio (IPV/OPV) 2001-04-22 Completed [facility] 00:00:00 [facility] DTAP 2001-04-22 Completed [facility] 00:00:00 [facility] HIB 4 Dose Schedule 2001-04-22 Completed [facility] 00:00:00 [facility] Hep B, Adol or Pedi 2001-04-22 Completed [facility] Dosage 00:00:00 [facility] Polio (IPV/OPV) 2001-04-22 Completed [facility] 00:00:00 [facility] DTAP 2001-04-22 Completed [facility] 00:00:00 [facility] HIB 4 Dose Schedule 2001-04-22 Completed [facility] 00:00:00 [facility] Hep B, Adol or Pedi 2001-04-22 Completed [facility] Dosage 00:00:00 [facility] Polio (IPV/OPV) 2001-04-22 Completed [facility] 00:00:00 [facility] DTAP 2001-04-22 Completed [facility] 00:00:00 [facility] HIB 4 Dose Schedule 2001-04-22 Completed [facility] 00:00:00 [facility] DTAP 2001-04-22 Completed [facility] 00:00:00 [facility] Hep B, Adol or Pedi 2001-04-22 Completed [facility] Dosage 00:00:00 [facility] Polio (IPV/OPV) 2001-04-22 Completed [facility] 00:00:00 [facility] HIB 4 Dose Schedule 2001-04-22 Completed [facility] 00:00:00 [facility] DTAP 2001-04-22 Completed [facility] 00:00:00 [facility] DTAP 2001-04-22 Completed [facility] 00:00:00 [facility] HIB 4 Dose Schedule 2001-04-22 Completed [facility] 00:00:00 [facility] Hep B, Adol or Pedi 2001-04-22 Completed [facility] Dosage 00:00:00 [facility] Polio (IPV/OPV) 2001-04-22 Completed [facility] 00:00:00 [facility] Hep B, Adol or Pedi 2001-04-22 Completed [facility] Dosage 00:00:00 [facility] DTAP 2001-04-22 Completed [facility] 00:00:00 [facility] HIB 4 Dose Schedule 2001-04-22 Completed [facility] 00:00:00 [facility] Polio (IPV/OPV) 2001-01-21 Completed [facility] 00:00:00 [facility] Hep B, Adol or Pedi 2001-01-21 Completed [facility] Dosage 00:00:00 [facility] Polio (IPV/OPV) 2001-01-21 Completed [facility] 00:00:00 [facility] DTAP 2001-01-21 Completed [facility] 00:00:00 [facility] HIB 4 Dose Schedule 2001-01-21 Completed [facility] 00:00:00 [facility] Hep B, Adol or Pedi 2001-01-21 Completed [facility] Dosage 00:00:00 [facility] Polio (IPV/OPV) 2001-01-21 Completed [facility] 00:00:00 [facility] DTAP 2001-01-21 Completed [facility] 00:00:00 [facility] HIB 4 Dose Schedule 2001-01-21 Completed [facility] 00:00:00 [facility] Hep B, Adol or Pedi 2001-01-21 Completed [facility] Dosage 00:00:00 [facility] Polio (IPV/OPV) 2001-01-21 Completed [facility] 00:00:00 [facility] DTAP 2001-01-21 Completed [facility] 00:00:00 [facility] HIB 4 Dose Schedule 2001-01-21 Completed [facility] 00:00:00 [facility] Hep B, Adol or Pedi 2001-01-21 Completed [facility] Dosage 00:00:00 [facility] Polio (IPV/OPV) 2001-01-21 Completed [facility] 00:00:00 [facility] DTAP 2001-01-21 Completed [facility] 00:00:00 [facility] HIB 4 Dose Schedule 2001-01-21 Completed [facility] 00:00:00 [facility] Hep B, Adol or Pedi 2001-01-21 Completed [facility] Dosage 00:00:00 [facility] DTAP 2001-01-21 Completed [facility] 00:00:00 [facility] Polio (IPV/OPV) 2001-01-21 Completed [facility] 00:00:00 [facility] DTAP 2001-01-21 Completed [facility] 00:00:00 [facility] HIB 4 Dose Schedule 2001-01-21 Completed [facility] 00:00:00 [facility] Hep B, Adol or Pedi 2001-01-21 Completed [facility] Dosage 00:00:00 [facility] Polio (IPV/OPV) 2001-01-21 Completed [facility] 00:00:00 [facility] HIB 4 Dose Schedule 2001-01-21 Completed [facility] 00:00:00 [facility] DTAP 2001-01-21 Completed [facility] 00:00:00 [facility] HIB 4 Dose Schedule 2001-01-21 Completed [facility] 00:00:00 [facility] Hep B, Adol or Pedi 2001-01-21 Completed [facility] Dosage 00:00:00 [facility] Polio (IPV/OPV) 2001-01-21 Completed [facility] 00:00:00 [facility] DTAP 2001-01-21 Completed [facility] 00:00:00 [facility] HIB 4 Dose Schedule 2001-01-21 Completed [facility] 00:00:00 [facility] Hep B, Adol or Pedi 2001-01-21 Completed [facility] Dosage 00:00:00 [facility] Polio (IPV/OPV) 2001-01-21 Completed [facility] 00:00:00 [facility] Hep B, Adol or Pedi 2001-01-21 Completed [facility] Dosage 00:00:00 [facility] DTAP 2001-01-21 Completed [facility] 00:00:00 [facility] HIB 4 Dose Schedule 2001-01-21 Completed [facility] 00:00:00 [facility] HIB 4 Dose Schedule 2001-01-21 Completed [facility] 00:00:00 [facility] Hep B, Adol or Pedi 2001-01-21 Completed [facility] Dosage 00:00:00 [facility] Polio (IPV/OPV) 2001-01-21 Completed [facility] 00:00:00 [facility] Polio (IPV/OPV) 2001-01-21 Completed [facility] 00:00:00 [facility] DTAP 2001-01-21 Completed [facility] 00:00:00 [facility] HIB 4 Dose Schedule 2001-01-21 Completed [facility] 00:00:00 [facility] Hep B, Adol or Pedi 2001-01-21 Completed [facility] Dosage 00:00:00 [facility] Polio (IPV/OPV) 2001-01-21 Completed [facility] 00:00:00 [facility] DTAP 2001-01-21 Completed [facility] 00:00:00 [facility] HIB 4 Dose Schedule 2001-01-21 Completed [facility] 00:00:00 [facility] Hep B, Adol or Pedi 2001-01-21 Completed [facility] Dosage 00:00:00 [facility] Polio (IPV/OPV) 2001-01-21 Completed [facility] 00:00:00 [facility] DTAP 2001-01-21 Completed [facility] 00:00:00 [facility] HIB 4 Dose Schedule 2001-01-21 Completed [facility] 00:00:00 [facility] Hep B, Adol or Pedi 2001-01-21 Completed [facility] Dosage 00:00:00 [facility] Polio (IPV/OPV) 2001-01-21 Completed [facility] 00:00:00 [facility] DTAP 2001-01-21 Completed [facility] 00:00:00 [facility] DTAP 2001-01-21 Completed [facility] 00:00:00 [facility] HIB 4 Dose Schedule 2001-01-21 Completed [facility] 00:00:00 [facility] Hep B, Adol or Pedi 2001-01-21 Completed [facility] Dosage 00:00:00 [facility] Polio (IPV/OPV) 2001-01-21 Completed [facility] 00:00:00 [facility] DTAP 2001-01-21 Completed [facility] 00:00:00 [facility] HIB 4 Dose Schedule 2001-01-21 Completed [facility] 00:00:00 [facility] Hep B, Adol or Pedi 2001-01-21 Completed [facility] Dosage 00:00:00 [facility] HIB 4 Dose Schedule 2001-01-21 Completed [facility] 00:00:00 [facility] Polio (IPV/OPV) 2001-01-21 Completed [facility]00 [facility] DTAP 2001-01-21 Completed [facility] 00:00:00 [facility] HIB 4 Dose Schedule 2001-01-21 Completed [facility] 00:00:00 [facility] Hep B, Adol or Pedi 2001-01-21 Completed [facility] Dosage 00:00:00 [facility] Polio (IPV/OPV) 2001-01-21 Completed [facility] 00:00:00 [facility] DTAP 2001-01-21 Completed [facility] 00:00:00 [facility] HIB 4 Dose Schedule 2001-01-21 Completed [facility] 00:00:00 [facility] Hep B, Adol or Pedi 2001-01-21 Completed [facility] Dosage 00:00:00 [facility] Hep B, Adol or Pedi 2001-01-21 Completed [facility] Dosage 00:00:00 [facility] Polio (IPV/OPV) 2001-01-21 Completed [facility] 00:00:00 [facility] DTAP 2001-01-21 Completed [facility] 00:00:00 [facility] HIB 4 Dose Schedule 2001-01-21 Completed [facility] 00:00:00 [facility] Hep B, Adol or Pedi 2001-01-21 Completed [facility] Dosage 00:00:00 [facility] Polio (IPV/OPV) 2001-01-21 Completed [facility] 00:00:00 [facility] DTAP 2001-01-21 Completed [facility] 00:00:00 [facility] Polio (IPV/OPV) 2001-01-21 Completed [facility] 00:00:00 [facility] HIB 4 Dose Schedule 2001-01-21 Completed [facility] 00:00:00 [facility] Hep B, Adol or Pedi 2001-01-21 Completed [facility] Dosage 00:00:00 [facility] Polio (IPV/OPV) 2001-01-21 Completed [facility] 00:00:00 [facility] DTAP 2001-01-21 Completed [facility] 00:00:00 [facility] HIB 4 Dose Schedule 2001-01-21 Completed [facility] 00:00:00 [facility] Hep B, Adol or Pedi 2001-01-21 Completed [facility] Dosage 00:00:00 [facility] Polio (IPV/OPV) 2001-01-21 Completed [facility] 00:00:00 [facility] DTAP 2001-01-21 Completed [facility] 00:00:00 [facility] HIB 4 Dose Schedule 2001-01-21 Completed [facility] 00:00:00 [facility] Hep B, Adol or Pedi 2001-01-21 Completed [facility] Dosage 00:00:00 [facility] Polio (IPV/OPV) 2001-01-21 Completed [facility] 00:00:00 [facility] DTAP 2001-01-21 Completed [facility] 00:00:00 [facility] HIB 4 Dose Schedule 2001-01-21 Completed [facility] 00:00:00 [facility] Hep B, Adol or Pedi 2001-01-21 Completed [facility] Dosage 00:00:00 [facility] Polio (IPV/OPV) 2001-01-21 Completed [facility] 00:00:00 [facility] DTAP 2001-01-21 Completed [facility] 00:00:00 [facility] HIB 4 Dose Schedule 2001-01-21 Completed [facility] 00:00:00 [facility] Hep B, Adol or Pedi 2001-01-21 Completed [facility] Dosage 00:00:00 [facility] Polio (IPV/OPV) 2001-01-21 Completed [facility] 00:00:00 [facility] DTAP 2001-01-21 Completed [facility] 00:00:00 [facility] HIB 4 Dose Schedule 2001-01-21 Completed [facility] 00:00:00 [facility] Hep B, Adol or Pedi 2001-01-21 Completed [facility] Dosage 00:00:00 [facility] Polio (IPV/OPV) 2001-01-21 Completed [facility] 00:00:00 [facility] DTAP 2001-01-21 Completed [facility] 00:00:00 [facility] HIB 4 Dose Schedule 2001-01-21 Completed [facility] 00:00:00 [facility] Hep B, Adol or Pedi 2001-01-21 Completed [facility] Dosage 00:00:00 [facility] Polio (IPV/OPV) 2001-01-21 Completed [facility] 00:00:00 [facility] DTAP 2001-01-21 Completed [facility] 00:00:00 [facility] DTAP 2001-01-21 Completed [facility] 00:00:00 [facility] HIB 4 Dose Schedule 2001-01-21 Completed [facility] 00:00:00 [facility] HIB 4 Dose Schedule 2001-01-21 Completed [facility] 00:00:00 [facility] Hep B, Adol or Pedi 2001-01-21 Completed [facility] Dosage 00:00:00 [facility] Polio (IPV/OPV) 2001-01-21 Completed [facility] 00:00:00 [facility] DTAP 2001-01-21 Completed [facility] 00:00:00 [facility] HIB 4 Dose Schedule 2001-01-21 Completed [facility] 00:00:00 [facility] Hep B, Adol or Pedi 2001-01-21 Completed [facility] Dosage 00:00:00 [facility] Hep B, Adol or Pedi 2001-01-21 Completed [facility] Dosage 00:00:00 [facility] Polio (IPV/OPV) 2001-01-21 Completed [facility] 00:00:00 [facility] DTAP 2001-01-21 Completed [facility] 00:00:00 [facility] Hep B, Adol or Pedi 2001-01-21 Completed [facility] Dosage 00:00:00 [facility] HIB 4 Dose Schedule 2001-01-21 Completed [facility] 00:00:00 [facility] Hep B, Adol or Pedi 2001-01-21 Completed [facility] Dosage 00:00:00 [facility] Polio (IPV/OPV) 2001-01-21 Completed [facility] 00:00:00 [facility] DTAP 2001-01-21 Completed [facility] 00:00:00 [facility] HIB 4 Dose Schedule 2001-01-21 Completed [facility] 00:00:00 [facility] Polio (IPV/OPV) 2001-01-21 Completed [facility] 00:00:00 [facility] Hep B, Adol or Pedi 2001-01-21 Completed [facility] Dosage 00:00:00 [facility] Polio (IPV/OPV) 2001-01-21 Completed [facility] 00:00:00 [facility] DTAP 2001-01-21 Completed [facility] 00:00:00 [facility] HIB 4 Dose Schedule 2001-01-21 Completed [facility] 00:00:00 [facility] Hep B, Adol or Pedi 2001-01-21 Completed [facility] Dosage 00:00:00 [facility] Polio (IPV/OPV) 2001-01-21 Completed [facility] 00:00:00 [facility] DTAP 2001-01-21 Completed [facility] 00:00:00 [facility] HIB 4 Dose Schedule 2001-01-21 Completed [facility] 00:00:00 [facility] Hep B, Adol or Pedi 2001-01-21 Completed [facility] of Dosage 00:00:00 [facility] Polio (IPV/OPV) 2001-01-21 Completed [facility] 00:00:00 [facility] DTAP 2001-01-21 Completed [facility] 00:00:00 [facility] HIB 4 Dose Schedule 2001-01-21 Completed [facility] 00:00:00 [facility] Hep B, Adol or Pedi 2001-01-21 Completed [facility] Dosage 00:00:00 [facility] Polio (IPV/OPV) 2001-01-21 Completed [facility] 00:00:00 [facility] DTAP 2001-01-21 Completed [facility] 00:00:00 [facility] HIB 4 Dose Schedule 2001-01-21 Completed [facility] 00:00:00 [facility] Hep B, Adol or Pedi 2001-01-21 Completed [facility] Dosage 00:00:00 [facility] Polio (IPV/OPV) 2001-01-21 Completed [facility] 00[facility]00:00 [facility] DTAP 2001-01-21 Completed [facility] 00:00:00 [facility] DTAP 2001-01-21 Completed [facility] 00:00:00 [facility] HIB 4 Dose Schedule 2001-01-21 Completed [facility] 00:00:00 [facility] Hep B, Adol or Pedi 2001-01-21 Completed [facility] Dosage 00:00:00 [facility] Polio (IPV/OPV) 2001-01-21 Completed [facility] 00:00:00 [facility] DTAP 2001-01-21 Completed [facility] 00:00:00 [facility] HIB 4 Dose Schedule 2001-01-21 Completed [facility] 00:00:00 [facility] HIB 4 Dose Schedule 2001-01-21 Completed [facility] 00:00:00 [facility] Hep B, Adol or Pedi 2001-01-21 Completed [facility] of Dosage 00:00:00 [facility] Polio (IPV/OPV) 2001-01-21 Completed [facility] 00:00:00 [facility] DTAP 2001-01-21 Completed [facility] 00:00:00 [facility] HIB 4 Dose Schedule 2001-01-21 Completed [facility] 00:00:00 [facility] Hep B, Adol or Pedi 2001-01-21 Completed [facility] Dosage 00:00:00 [facility] Polio (IPV/OPV) 2001-01-21 Completed [facility] 00:00:00 [facility] Hep B, Adol or Pedi 2001-01-21 Completed [facility] Dosage 00:00:00 [facility] Polio (IPV/OPV) 2001-01-21 Completed [facility] 00:00:00 [facility] Polio (IPV/OPV) 2001-01-21 Completed [facility] 00:00:00 [facility] DTAP 2001-01-21 Completed [facility] 00:00:00 [facility] HIB 4 Dose Schedule 2001-01-21 Completed [facility] 00:00:00 [facility] Hep B, Adol or Pedi 2001-01-21 Completed [facility] Dosage 00:00:00 [facility] Polio (IPV/OPV) 2001-01-21 Completed [facility] 00:00:00 [facility] DTAP 2001-01-21 Completed [facility] 00:00:00 [facility] HIB 4 Dose Schedule 2001-01-21 Completed [facility] 00:00:00 [facility] Hep B, Adol or Pedi 2001-01-21 Completed [facility] Dosage 00:00:00 [facility] Polio (IPV/OPV) 2001-01-21 Completed [facility] 00:00:00 [facility] DTAP 2001-01-21 Completed [facility] 00:00:00 [facility] HIB 4 Dose Schedule 2001-01-21 Completed [facility] 00:00:00 [facility] Hep B, Adol or Pedi 2001-01-21 Completed [facility] Dosage 00:00:00 [facility] Polio (IPV/OPV) 2001-01-21 Completed [facility] 00:00:00 [facility] DTAP 2001-01-21 Completed [facility] 00:00:00 [facility] HIB 4 Dose Schedule 2001-01-21 Completed [facility] 00:00:00 [facility] DTAP 2001-01-21 Completed [facility] 00:00:00 [facility] Hep B, Adol or Pedi 2001-01-21 Completed [facility] Dosage 00:00:00 [facility] Polio (IPV/OPV) 2001-01-21 Completed [facility] 00:00:00 [facility] DTAP 2001-01-21 Completed [facility] 00:00:00 [facility] HIB 4 Dose Schedule 2001-01-21 Completed [facility] 00:00:00 [facility] Hep B, Adol or Pedi 2001-01-21 Completed [facility] Dosage 00:00:00 [facility] HIB 4 Dose Schedule 2001-01-21 Completed [facility] 00:00:00 [facility] Polio (IPV/OPV) 2001-01-21 Completed [facility] 00:00:00 [facility] DTAP 2001-01-21 Completed [facility] 00:00:00 [facility] HIB 4 Dose Schedule 2001-01-21 Completed [facility] 00:00:00 [facility] Hep B, Adol or Pedi 2001-01-21 Completed [facility] Dosage 00:00:00 [facility] Polio (IPV/OPV) 2001-01-21 Completed [facility] 00:00:00 [facility] Hep B, Adol or Pedi 2001-01-21 Completed [facility] Dosage 00:00:00 [facility] DTAP 2001-01-21 Completed [facility] 00:00:00 [facility] HIB 4 Dose Schedule 2001-01-21 Completed [facility] 00:00:00 [facility] Hep B, Adol or Pedi 2001-01-21 Completed [facility] of Dosage 00:00:00 [facility] Polio (IPV/OPV) 2001-01-21 Completed [facility] 00:00:00 [facility] DTAP 2001-01-21 Completed [facility] 00:00:00 [facility] HIB 4 Dose Schedule 2001-01-21 Completed [facility] 00:00:00 [facility] Hep B, Adol or Pedi 2001-01-21 Completed [facility] of Dosage 00:00:00 [facility] Polio (IPV/OPV) 2001-01-21 Completed [facility] 00:00:00 [facility] Polio (IPV/OPV) 2001-01-21 Completed [facility] 00:00:00 [facility] DTAP 2001-01-21 Completed [facility] 00:00:00 [facility] HIB 4 Dose Schedule 2001-01-21 Completed [facility] 00:00:00 [facility] Hep B, Adol or Pedi 2001-01-21 Completed [facility] Dosage 00:00:00 [facility] Polio (IPV/OPV) 2001-01-21 Completed [facility] 00:00:00 [facility] DTAP 2001-01-21 Completed [facility] 00:00:00 [facility] HIB 4 Dose Schedule 2001-01-21 Completed [facility] 00:00:00 [facility] Hep B, Adol or Pedi 2001-01-21 Completed [facility] Dosage 00:00:00 [facility] Polio (IPV/OPV) 2001-01-21 Completed [facility] 00:00:00 [facility] DTAP 2001-01-21 Completed [facility] 00:00:00 [facility] HIB 4 Dose Schedule 2001-01-21 Completed [facility] 00:00:00 [facility] Hep B, Adol or Pedi 2001-01-21 Completed [facility] Dosage 00:00:00 [facility] Polio (IPV/OPV) 2001-01-21 Completed [facility] 00:00:00 [facility] DTAP 2001-01-21 Completed [facility] 00:00:00 [facility] HIB 4 Dose Schedule 2001-01-21 Completed [facility] 00:00:00 [facility] Hep B, Adol or Pedi 2001-01-21 Completed [facility] of Dosage 00:00:00 [facility] Polio (IPV/OPV) 2001-01-21 Completed [facility] 00:00:00 [facility] DTAP 2001-01-21 Completed [facility] 00:00:00 [facility] HIB 4 Dose Schedule 2001-01-21 Completed [facility] 00:00:00 [facility] Hep B, Adol or Pedi 2001-01-21 Completed [facility] of Dosage 00:00:00 [facility] Polio (IPV/OPV) 2001-01-21 Completed [facility] 00:00:00 [facility] DTAP 2001-01-21 Completed [facility] 00:00:00 [facility] DTAP 2001-01-21 Completed [facility] 00:00:00 [facility] DTAP 2001-01-21 Completed [facility] 00:00:00 [facility] HIB 4 Dose Schedule 2001-01-21 Completed [facility] 00:00:00 [facility] Hep B, Adol or Pedi 2001-01-21 Completed [facility] of Dosage 00:00:00 [facility] Polio (IPV/OPV) 2001-01-21 Completed [facility] 00:00:00 [facility] HIB 4 Dose Schedule 2001-01-21 Completed [facility] 00:00:00 [facility] DTAP 2001-01-21 Completed [facility] 00:00:00 [facility] HIB 4 Dose Schedule 2001-01-21 Completed [facility] 00:00:00 [facility] Hep B, Adol or Pedi 2001-01-21 Completed [facility] of Dosage 00:00:00 [facility] Polio (IPV/OPV) 2001-01-21 Completed [facility] 00:00:00 [facility] Hep B, Adol or Pedi 2001-01-21 Completed [facility] of Dosage 00:00:00 [facility] DTAP 2001-01-21 Completed [facility] 00:00:00 [facility] HIB 4 Dose Schedule 2001-01-21 Completed [facility] 00:00:00 [facility] Hep B, Adol or Pedi 2000 Completed [facility] of Dosage 00:00:00 [facility] Hep B, Adol or Pedi 2000 Completed [facility] of Dosage 00:00:00 [facility] Hep B, Adol or Pedi 2000 Completed [facility] of Dosage 00:00:00 [facility] Hep B, Adol or Pedi [...] 2000 Completed [facility] Dosage 00:00:00 [facility] Hep B, Adol or Pedi 2000 Completed [facility] Dosage 00:00:00 [facility] Hep B, Adol or Pedi 2000 Completed [facility] Dosage 00:00:00 [facility] Hep B, Adol or Pedi 2000 Completed [facility] of Dosage 00:00:00 [facility] Hep B, Adol or Pedi 2000 Completed [facility] of Dosage 00:00:00 [facility] Hep B, Adol or Pedi 2000 Completed [facility] Dosage 00:00:00 [facility] Hep B, Adol or Pedi 2000 Completed [facility] of Dosage 00:00:00 [facility] Hep B, Adol or Pedi 2000 Completed [facility] of Dosage 00:00:00 [facility] Hep B, Adol or Pedi 2000 Completed [facility] Dosage 00:00:00 [facility] Hep B, Adol or Pedi 2000 Completed [facility] of Dosage 00:00:00 [facility] Hep B, Adol or Pedi 2000 Completed [facility] of Dosage 00:00:00 [facility] Hep B, Adol or Pedi 2000 Completed [facility] of Dosage 00:00:00 [facility] Hep B, Adol or Pedi 2000 Completed [facility] of Dosage 00:00:00 [facility] Hep B, Adol or Pedi 2000 Completed [facility] of Dosage 00:00:00 [facility] Hep B, Adol or Pedi 2000 Completed [facility] of Dosage 00:00:00 [facility] Hep B, Adol or Pedi 2000 Completed [facility] Dosage 00:00:00 [facility] Vital Signs Vital Name Observation Time Observation Value Comments Source Systolic blood 2022-04-12 20:16:00 111 mm[Hg] [facility] pressure [facility] Diastolic blood 2022-04-12 20:16:00 71 mm[Hg] [facility] pressure [facility] Heart rate 2022-04-12 20:16:00 109 /min [facility] Body temperature 2022-04-12 20:16:00 37 Karis [facility] ers[facility] of [facility] Respiratory rate 2022-04-12 20:16:00 16 /min Univ [facility] Body height 2022-04-12 20:16:00 170.2 cm [facility] Body weight 2022-04-12 20:16:00 61.281 kg [facility] BMI 2022-04-12 20:16:00 21.16 kg/m2 [facility] Oxygen saturation 2022-04-12 20:16:00 98 /min Uni [facility] in Arterial blood [facility] Systolic blood 2022-03-27 23:01:00 114 mm[Hg] [facility] pressure [facility] Diastolic blood 2022-03-27 23:01:00 75 mm[Hg] [facility] pressure [facility] Heart rate 2022-03-27 23:01:00 106 /min [facility] Body temperature 2022-03-27 23:01:00 37.22 Karis [facility] ers[facility] of [facility] Respiratory rate 2022-03-27 23:01:00 17 /min Univ [facility] Body weight 2022-03-27 23:01:00 65.318 kg [facility] BMI 2022-03-27 23:01:00 22.55 kg/m2 [facility] Oxygen saturation 2022-03-27 23:01:00 96 /min [facility] in Arterial blood [facility] Systolic blood 2022-01-05 21:04:00 111 mm[Hg] [facility] pressure [facility] Diastolic blood 2022-01-05 21:04:00 75 mm[Hg] [facility] pressure [facility] Heart rate 2022-01-05 21:04:00 83 /min [facility] Body temperature 2022-01-05 21:04:00 36.89 Karis [facility] Respiratory rate 2022-01-05 21:04:00 18 /min Univ [facility] Body height 2022-01-05 21:04:00 170.2 cm [facility] Body weight 2022-01-05 21:04:00 63.413 kg [facility] BMI 2022-01-05 21:04:00 21.90 kg/m2 [facility] Oxygen saturation 2022-01-05 21:04:00 100 /min [facility] in Arterial blood [facility] Systolic blood 2021-11-28 17:40:00 116 mm[Hg] [facility] pressure [facility] Diastolic blood 2021-11-28 17:40:00 80 mm[Hg] [facility] pressure [facility] Heart rate 2021-11-28 17:40:00 76 /min [facility] Body temperature 2021-11-28 17:40:00 36.94 Karis [facility] Respiratory rate 2021-11-28 17:40:00 18 /min Univ [facility] Body height 2021-11-28 17:40:00 170.2 cm [facility] Body weight 2021-11-28 17:40:00 58.333 kg [facility] BMI 2021-11-28 17:40:00 20.14 kg/m2 [facility] Oxygen saturation 2021-11-28 17:40:00 98 /min Uni [facility] in Arterial blood [facility] Systolic blood 2021-11-26 20:37:00 123 mm[Hg] [facility] pressure [facility] Diastolic blood 2021-11-26 20:37:00 85 mm[Hg] [facility] pressure [facility] Heart rate 2021-11-26 20:37:00 76 /min [facility] Body temperature 2021-11-26 20:37:00 36.89 Karis [facility] Respiratory rate 2021-11-26 20:37:00 18 /[facility] 2021-11-26 20:37:00 57.289 kg [facility] BMI 2021-11-26 20:37:00 19.78 kg/m2 Univers[facility] ty [facility] Oxygen saturation 2021-11-26 20:37:00 100 /min Uni versity of in Arterial blood [facility] by Pulse oximetry [facility] Systolic blood 2021-11-18 23:46:00 119 mm[Hg] [facility] Diastolic blood 2021-11-18 23:46:00 74 mm[Hg] [facility] Heart rate 2021-11-18 23:46:00 97 /min [facility] Body temperature 2021-11-18 23:46:00 36.89 Karis [facility] Respiratory rate 2021-11-18 23:46:00 18 /min [facility] Body height 2021-11-18 23:46:00 170.2 cm [facility] Body weight 2021-11-18 23:46:00 56.881 kg [facility] BMI 2021-11-18 23:46:00 19.64 kg/m2 [facility] ty [facility] Oxygen saturation 2021-11-18 23:46:00 97 /min Uni vers[facility] of in Arterial blood [facility] by [facility] oxim[facility] Branch BP Diastolic 2021-10-29 00:00:00 62 mm[Hg] [facility] Height 2021-10-29 00:00:00 67 [in_i] [facility] BMI (Body Mass 2021-10-29 00:00:00 18.8 kg/m2 [facility] Medical Index) BP Systolic 2021-10-29 00:00:00 112 mm[Hg] [facility] Body Weight 2021-10-29 00:00:00 120 [lb_av] [facility] BP Diastolic 2021-09-26 00:00:00 62 mm[Hg] [facility] Height 2021-09-26 00:00:00 67 [in_i] [facility] BMI (Body Mass 2021-09-26 00:00:00 17.2 kg/m2 [facility] Medical Index) BP Systolic 2021-09-26 00:00:00 110 mm[Hg] [facility] Body Weight 2021-09-26 00:00:00 110 [lb_av] [facility] temperature 2021-08-25 15:20:00 98.4 [degF] [facility] oximetry 2021-08-25 15:20:00 97 % [facility] heart rate 2021-08-25 15:20:00 102 /min [facility] BP Diastolic 2021-08-16 00:00:00 72 mm[Hg] Ana Plummer edical Height 2021-08-16 00:00:00 67 [in_i] Ana Plummer edical BMI (Body Mass 2021-08-16 00:00:00 17.7 kg/m2 [facility] Medical Index) BP Systolic 2021-08-16 00:00:00 102 mm[Hg] Ana Plummer edical Body Weight 2021-08-16 00:00:00 113 [lb_av] Ana Plummer edical BP Diastolic 2021-06-14 00:00:00 76 mm[Hg] Ana Plummer edical Height 2021-06-14 00:00:00 67 [in_i] Ana Plummer edical BMI (Body Mass 2021-06-14 00:00:00 19 kg/m2 [facility] Medical Index) BP Systolic 2021-06-14 00:00:00 102 mm[Hg] Ana Plummer edical Body Weight 2021-06-14 00:00:00 121 [lb_av] Ana Plummer edical Systolic blood 2019-12-02 18:51:00 120 mm[Hg] Univer sity of pressure [facility] Diastolic blood 2019-12-02 18:51:00 78 mm[Hg] Unive rsity of pressure [facility] Heart rate 2019-12-02 18:51:00 79 /min Universi [facility] Body temperature 2019-12-02 18:51:00 36.17 Karis Univ ersity [facility] Respiratory rate 2019-12-02 18:51:00 16 /min Univ [facility] Body height 2019-12-02 18:51:00 170.2 cm [facility] Body weight 2019-12-02 18:51:00 57.516 kg [facility] BMI 2019-12-02 18:51:00 19.86 kg/m2 [facility] Systolic blood 2019-11-04 19:06:00 117 mm[Hg] Univer sity of [facility] Diastolic blood 2019-11-04 19:06:00 80 mm[Hg] Unive rsity of [facility] Heart rate 2019-11-04 19:06:00 86 /min [facility] Body temperature 2019-11-04 19:06:00 37 Karis [facility] Respiratory rate 2019-11-04 19:06:00 16 /min Univ [facility] Body height 2019-11-04 19:06:00 170.2 cm [facility] Body weight 2019-11-04 19:06:00 59.563 kg [facility] BMI 2019-11-04 19:06:00 20.57 kg/m2 [facility] Systolic blood 2019-09-20 19:27:00 114 mm[Hg] Univer sity of [facility] Diastolic blood 2019-09-20 19:27:00 77 mm[Hg] Unive rsity of [facility] Heart rate 2019-09-20 19:27:00 72 /min [facility] Body temperature 2019-09-20 19:27:00 36.61 Karis [facility] Respiratory rate 2019-09-20 19:27:00 16 /min Univ [facility] Body height 2019-09-20 19:27:00 170.2 cm [facility] Body weight 2019-09-20 19:27:00 59.194 kg [facility] BMI 2019-09-20 19:27:00 20.44 kg/m2 [facility] Systolic blood 2019-09-03 20:17:00 112 mm[Hg] Univer sity of [facility] Diastolic blood 2019-09-03 20:17:00 72 mm[Hg] Unive rsity of pressure [facility] Heart rate 2019-09-03 20:17:00 70 /min Universi ty of [facility] Body temperature 2019-09-03 20:17:00 36.44 Karis Univ ersity of [facility] Respiratory rate 2019-09-03 20:17:00 16 /min Univ ersity of [facility] Body height 2019-09-03 20:17:00 170.2 cm Universi ty [facility] Body weight 2019-09-03 20:17:00 59.081 kg Universi ty of [facility] BMI 2019-09-03 20:17:00 20.40 kg/m2 Universi ty [facility] Systolic blood 2019-07-28 17:00:00 141 mm[Hg] RN notified Univer sity of [facility] Diastolic blood 2019-07-28 17:00:00 103 mm[Hg] RN notified Unive rsity of [facility] Heart rate 2019-07-28 17:00:00 90 /min Universi ty of [facility] Body temperature 2019-07-28 17:00:00 37.11 Karis Univ ersity of [facility] Respiratory rate 2019-07-28 17:00:00 20 /min Univ ersity of [facility] Oxygen saturation 2019-07-28 17:00:00 98 /min Uni versity of in Arterial blood [facility] by Pulse oximetry Branch Body height 2019-07-25 18:47:00 170.2 cm Universi ty of [facility] Body weight 2019-07-25 18:47:00 72.576 kg Universi ty of [facility] BMI 2019-07-25 18:47:00 25.06 kg/m2 Universi ty [facility] Systolic blood 2019-06-29 19:59:00 119 mm[Hg] Univer sity of pressure [facility] Diastolic blood 2019-06-29 19:59:00 79 mm[Hg] Unive rsity of pressure [facility] Heart rate 2019-06-29 19:59:00 76 /min Universi ty of [facility] Body temperature 2019-06-29 19:59:00 36.33 Karis Univ ersity of [facility] Respiratory rate 2019-06-29 19:59:00 16 /min Univ ersity of [facility] Body height 2019-06-29 19:59:00 170.2 cm [facility] Body weight 2019-06-29 19:59:00 65.885 kg [facility] BMI 2019-06-29 19:59:00 22.75 kg/m2 [facility] Systolic blood 2019-06-27 04:35:00 130 mm[Hg] Univer sity of pressure [facility] Diastolic blood 2019-06-27 04:35:00 87 mm[Hg] Unive rsity of pressure [facility] Heart rate 2019-06-27 04:35:00 76 /min [facility] Respiratory rate 2019-06-27 04:35:00 18 /min Univ ersity of [facility] Oxygen saturation 2019-06-27 04:35:00 100 /min Uni versity of in Arterial blood [place] [facility] P[facility]xim[facility] [place] Body temperature 2019-06-27 03:39:00 36.94 Karis Univ ersity of [facility] Body height 2019-06-27 03:39:00 170.2 cm [facility] Body weight 2019-06-27 03:39:00 63.957 kg [facility] BMI 2019-06-27 03:39:00 22.08 kg/m2 Universi ty of [facility] Systolic blood 2019-06-19 02:16:00 131 mm[Hg] Univer sity of pressure [facility] Diastolic blood 2019-06-19 02:16:00 79 mm[Hg] Unive rsity of [facility] Heart rate 2019-06-19 02:16:00 126 /min Universi ty of [facility] Body temperature 2019-06-19 02:16:00 37.56 Karis Univ ersity of [facility] Respiratory rate 2019-06-19 02:16:00 18 /min Univ ersity of [facility] Body height 2019-06-19 02:16:00 170.2 cm [facility] Body weight 2019-06-19 02:16:00 63.957 kg [facility] BMI 2019-06-19 02:16:00 22.08 kg/m2 Universi ty of [facility] Oxygen saturation 2019-06-19 02:16:00 97 /min Uni versity of in Arterial blood [place] [facility] Pulse oximetry [facility] Systolic blood 2019-06-16 19:03:00 110 mm[Hg] Univer sity of [facility] Diastolic blood 2019-06-16 19:03:00 70 mm[Hg] Unive rsity of [facility] Heart rate 2019-06-16 19:03:00 76 /min Universi ty of [facility] Body temperature 2019-06-16 19:03:00 36.33 Karis Univ ersity of [facility] Respiratory rate 2019-06-16 19:03:00 16 /min Univ [facility] Body height 2019-06-16 19:03:00 170.2 cm [facility] Body weight 2019-06-16 19:03:00 63.957 kg [facility] BMI 2019-06-16 19:03:00 22.08 kg/m2 Universi ty of [facility] Diastolic blood 2019-05-26 16:37:00 68 mm[Hg] Unive rsity of pressure [facility] Heart rate 2019-05-26 16:37:00 79 /min Universi ty of [facility] Body temperature 2019-05-26 16:37:00 36.83 Karis [facility] Respiratory rate 2019-05-26 16:37:00 18 /min Univ ersity of [facility] Body height 2019-05-26 16:37:00 170.2 cm [facility] Body weight 2019-05-26 16:37:00 59.194 kg [facility] BMI 2019-05-26 16:37:00 20.44 kg/m2 Universi ty of [facility] Systolic blood 2019-05-26 16:37:00 111 mm[Hg] Univer sity of [facility] Systolic blood 2019-05-24 03:00:00 111 mm[Hg] Univer sity of [facility] Diastolic blood 2019-05-24 03:00:00 73 mm[Hg] Unive rsity of [facility] Heart rate 2019-05-24 03:00:00 73 /min Universi ty of [facility] Respiratory rate 2019-05-24 03:00:00 16 /min Univ ersity of [facility] Oxygen saturation 2019-05-24 03:00:00 98 /min Uni versity of in Arterial blood [facility] by Pulse oximetry Branch Body temperature 2019-05-24 00:12:00 37.17 Karis [facility] Body height 2019-05-24 00:12:00 170.2 cm Universi ty [facility] Body weight 2019-05-24 00:12:00 55.792 kg [facility] BMI 2019-05-24 00:12:00 19.26 kg/m2 Universi [facility] Systolic blood 2018-11-25 19:05:00 120 mm[Hg] Univer sity of pressure [facility] Diastolic blood 2018-11-25 19:05:00 84 mm[Hg] Unive [facility] Heart rate 2018-11-25 19:05:00 67 /min [facility] Body temperature 2018-11-25 19:05:00 36.28 Karis [facility] Respiratory rate 2018-11-25 19:05:00 18 /min [facility] Body height 2018-11-25 19:05:00 170.2 cm Universi [facility] Body weight 2018-11-25 19:05:00 50.077 kg [facility] BMI 2018-11-25 19:05:00 17.29 kg/m2 [facility] Oxygen saturation 2018-11-25 19:05:00 100 /min Uni versity of in Arterial blood [facility] by Pulse oximetry [place] Procedures Procedure Date / Time Performing Clinician Source Performed POCT MOLECULAR STREP 2022-01-05 21:09:00 Unknown, Attending [facility] URINALYSIS 2021-11-26 21:30:00 Cathy Dennison [facility] COVID-19 (ID NOW RAPID 2021-11-26 21:30:00 Cathy Dennison [facility] TESTING) Medical Branch CONSENT/REFUSAL FOR 2021-11-26 20:24:27 Doctor Unassigned, [facility] DIAGNOSIS AND TREATMENT [facility] [place] AUTHORIZATION FOR RELEASE 2021-10-01 05:01:00 Doctor Unakassandraigned, [facility] AUTHORIZATION FOR RELEASE 2021-08-16 05:01:00 Doctor Unassigned, [facility] POCT URINALYSIS W/O 2019-09-03 20:21:00 Gilbert Headley Uni [facility] SPECIFIC GRAVITY [facility] VACCINATIONS - CONSENTS, 2019-08-17 05:01:00 Doctor Unassigned, [facility] ELIGIBILITY, HISTORY [facility] CBC WITH DIFFERENTIAL 2019-07-27 08:54:00 [facility] GALV ONLY - SYPHILIS 2019-07-27 02:58:00 Olivia Jaimes [facility] IGG/IGM [facility] HB ABO GROUPING 2019-07-26 20:25:00 Mague, [facility] o f [facility] RHO (D) IMMUNE GLOBULIN 2019-07-26 20:25:00 Bob Simmons [facility] VENOUS CORD GAS 2019-07-26 15:33:00 Idalia Jaimesmary [facility] US PELVIS > 14 2019-07-25 21:32:12 Teresa Guerrero [facility] WEEKS [facility] US BIOPHYSICAL 2019-07-25 21:31:20 Teresa Guerrero [facility] PROFILE [facility] URINE CULTURE 2019-07-25 21:17:00 Teresa Guerrero [facility] GROUP B STREPTOCOCCUS BY 2019-07-25 20:45:00 Teresa Guerrero [facility] PCR [facility] EXTRA TUBE SST 2019-07-25 19:36:00 Teresa Guerrero [facility] SGOT (ASPARTATE AMINO 2019-07-25 19:29:00 Teresa Guerrero [facility] TRANSFER) Medical Branch CREATININE 2019-07-25 19:29:00 Teresa Guerrero [facility] ALANINE AMINO 2019-07-25 19:29:00 Teresa Guerrero [facility] TRANSFERASE(SGPT Medical Branch LACTATE DEHYDROGENASE 2019-07-25 19:29:00 Teresa Guerrero [facility] URIC ACID 2019-07-25 19:29:00 Teresa Guerrero [facility] CBC WITH DIFFERENTIAL 2019-07-25 19:29:00 Diclemente, Teresa [facility] HEPATITIS B SURFACE 2019-07-25 19:29:00 Teresa [facility]errero [facility] [place] ADC OR OLYA ONLY - RPR 2019-07-25 19:29:00 Kelsea Guerrero [facility] HIV 1/2 AG-AB WITH REFLEX 2019-07-25 19:29:00 Kelsea Guerrero [facility] HB ABO GROUPING 2019-07-25 19:25:00 Teresa Guerrero [facility] URINALYSIS 2019-07-25 19:19:00 DicTeresa bajwa [facility] PROTEIN CREAT RATIO URINE 2019-07-25 19:19:00 Kelsea Guerrero [facility] RANDOM [facility] CORONAVIRUS COVID-19 2019-07-25 19:18:00 Teresa Guerrero [facility] TESTING [facility] ASSIGNMENT OF BENEFITS 2019-07-25 18:24:02 Doctor Unassigned, [facility] Name [facility] L&D VISIT (NON-DELIVERED) 2019-07-25 05:01:00 Doctor Odilon, [facility] POCT URINALYSIS W/O 2019-06-29 20:03:00 Cherry Noriega [facility] SPECIFIC GRAVITY [facility] ADC,CLC OR LCC ONLY - 2019-06-19 02:21:00 Glo Aggarwal [facility] INFLUENZA A & B DIRECT Medical [facility] ranch ANTIGEN NOTICE OF PRIVACY 2019-06-19 02:13:03 Doctor Unassigned, [facility] PRACTICES [facility] [place] CONSENT/REFUSAL FOR 2019-06-19 02:12:47 Doctor Odilon, [facility] DIAGNOSIS AND TREATMENT [facility] TDAP (ADACEL) 2019-06-16 19:03:37 Cherry Noriega [facility] IMMUNIZATION [facility] POCT URINALYSIS GLUCOSE & 2019-05-26 16:42:00 Cherry Noriega [facility] PROTEIN [facility] COMP. METABOLIC PANEL 2019-05-24 01:19:00 Abhay Stapleton [facility] ([id number]) [facility] [place] CBC WITH DIFFERENTIAL 2019-05-24:19:00 [facility] 2019-05-24 01:19:00 Abhay Stapleton [place] [facility] NOTICE OF PRIVACY 2019-05-23 23:56:57 Doctor Odilon [facility] PRACTICES [facility] [place] CONSENT/REFUSAL FOR 2019-05-23 23:56:38 Doctor Odilon [facility] DIAGNOSIS AND TREATMENT [facility] [place] INSURANCE CORRESPONDENCE 2018-11-25 05:01:00 Doctor Odilon, [facility] Plan of Care Planned Activity Planned Date Details Comments Source Diagnostic Test Pending 2021-10-29 00:00:00 afp [facility] (alpha-fetoprotein) , serum [code = afp (alpha-fetoprotein) , serum] Diagnostic Test Pending 2021-10-29 00:00:00 unlisted lab [code [facility] = unlisted lab] Future Appointment 2022-06-14 00:00:00 Ana Gaines [address] [facility]; [facility] [address], [place] [address] Encounters Start End Encounter Admission Attending Care Care Encounter Source Date/Time Date/Time Type Type Clinicians Facility Department ID 2021-08-25 Outpatient [facility] [id number] 15:42:00 [id number] [facility] 2021-02-08 Emergency [facility] [id number] Univers 17:45:57 ity of [facility] 2021-02-08 Outpatient P [facility] NATALI [id number] Univers 14:24:07 ity [facility] 2021-02-08 Emergency [facility] [id number] Univers 14:23:59 ity of [facility] 2021-02-08 Outpatient P [facility] NATALI [id number] Univers 14:23:59 ity of [facility] 2021-02-08 Emergency [facility] [id number] Univers 13:07[facility] 2020-02-16 Inpatient CYNDI Kennedy ENDO [id number] 14:00:00 Ravi Carlson [facility] 2022-04-15 2022-04-15 Outpatient SAMRA NORWOOD [facility] B [id number] Univers 13:00:00 13:00:00 SAMRA REYES jun [facility] 2022-04-12 2022-04-12 Urgent Aaron Becerra [facility] [id number] Univers 14:00:00 14:20:00 Care Unknown, Attending HEALTH [id number] ity of [place] [id number] Abdifatah as ROHAN?BLEA [id number] [address] MEDICAL OFFICE [facility] 2022-04-12 2022-04-12 Outpatient R RASHARDKavitha [facility] [id number] Univers 14:00:00 14:00:00 AARON [facility] 2022-04-12 2022-04-12 Telephone Pcp, [facility] [id number] Univers 00:00:00 00:00:00 Patient HEALTH [id number] it y of Does Not [place].2.[place] ROHAN?BLEA [id number] [address] MEDICAL OFFICE [facility] 2022-04-12 2022-04-12 Telephone Provider, [facility] [id number] Univers 00:00:00 00:00:00 Ang Db HEALTH [id number] it y [facility] [id number] [place] ROHAN?BLEA [id number] [address] MEDICAL OFFICE [facility] 2022-03-28 2022-03-28 Outpatient R SAMRA REYES [facility] B [id number] Univers 13:00:00 13:00:00 MONIQUESAMRA FERGUSON [facility] 2022-03-27 2022-03-27 Urgent Melisa Arrieta [facility] [id number] Univers 16:40:00 17:00:00 Care Unknown, Attending HEALTH [id number] ity of [place] [id number] Abdifatah as ROHAN?BLEA [id number] [address] MEDICAL OFFICE [facility] 2022-03-27 2022-03-27 Outpatient R RONNIE [facility] [id number] Univers 16:40:00 16:40:00 MELISA rashawn [facility] 2022-01-06 2022-01-06 Anderson ClearyCHRIS singh [id number] Univers 00:00:00 00:00:00 (Out) Sarah MARTINEZ [id number] it of [facility] [id number] Abdifatah as [id number] [address] 2022-01-05 2022-01-[address] [id number] Univers 16:00:00 16:32:05 ELAINA amadojun [facility] 2022-01-05 2022-01-05 Urgent Charles Elaina [facility] [id number] Univers 16:00:00 16:32:05 Care Jerry [id number] [facility] [id number] Abdifatah as ROHAN?BLEA [id number] [address] MEDICAL OFFICE [facility] 2021-11-28 2021-11-28 Outpatient R FINN [facility] [id number] Univers 12:40:00 13:06:39 CHRIS morocho [facility] 2021-11-28 2021-11-28 Urgent Aaron Becerra [facility] [id number] Univers 12:40:00 13:00:00 Jairo Honeycutt [facility] [id number] itjun [facility] [id number] Abdifatah as ROHAN?BLEA [id number] [address] MEDICAL OFFICE [facility] 2021-11-26 2021-11-26 Emergency [facility] [id number] Univers 15:38:00 17:49:00 CATHY morocho [facility] 2021-11-26 2021-11-26 Emergency [facility] [id number] Univers 15:38:00 17:49:00 Cathy CHOWDHURY 350.1.13.10 ity [facility] [id number] [place] [facility] [id number] [facility] 084 Branch 2021-11-18 2021-11-18 Outpatient R JAYDE [facility] [id number] Univers 18:20:00 19:17:01 SHINTA ity of [facility] 2021-11-18 2021-11-18 Urgent Susan Bermudez [facility] [id number] [facility] 18:20:00 19:17:01 Care Chris Honeycutt [facility] [id number] ity of [place] [id number] Abdifatah as ROHAN?BLEA [id number] [address] MEDICAL OFFICE BUILDING 2021-11-02 2021-11-02 Outpatient GC_BVWC_Per PRIV PRIV [id number] [facility] 11:40:00 11:40:00 rone_J [id number] Medica l 2021-10-29 2021-10-29 Outpatient GC_BVWC_Per PRIV PRIV [id number] [facility] 12:32:00 12:32:00 rone_J [id number] Medica l 2021-10-29 2021-10-29 Olimpia [facility] 18 [facility] 00:00:00 00:00:00 Hattie Lin - Rk kim MD: [address] GC_BVWC_Col [facility] [address], [place] Office[address], [place] [address] , Ph. 2021-10-29 2021-10-29 Outpatient Riley, PRIV PRIV [id number] 00:00:00 00:00:00 Olimpia [id number] 2021-10-01 2021-10-01 Orders Doctor CHRIS [id number] Univers 00:00:00 00:00:00 Only Unassigned, JUAN [id number] ity of [place] [facility] [id number] Abdifatah as [id number] [facility] 009 Branch 2021-09-26 2021-09-26 Outpatient GC_BVWC_Per PRIV PRIV [id number] [facility] 04:11:00 04:11:00 rone_J [id number] Medica l 2021-09-26 2021-09-26 Outpatient GC_BVWC_Per PRIV PRIV [id number] [facility] 04:11:00 04:11:00 rone_J [id number] Medica l 2021-09-26 [facility] 00:00:00 Riley [facility] MD: [address] GC[address]BVWC_Col [facility] [address], [place] Office[address], [place] [address] , Ph. 2021-09-26 2021-09-26 Outpatient Riley, PRIV PRIV [id number] 00:00:00 00:00:00 Olimpia [id number] 2021-09-19 2021-09-19 Outpatient GC_BVWC_Per PRIV PRIV [id number] [facility] 12:20:00 12:20:00 rone_J [id number] Medica l 2021-08-25 2021-08-25 Office [facility] STJC [id number] [facility] St 00:00:00 00:00:00 Visit, Marino pimentel - Pt., Level [facility] 2 [facility] ent Clinics 2021-08-21 2021-08-21 Outpatient GC_BVWC_Per PRIV PRIV [id number] [facility] 03:10:00 03:10:00 rone_J [id number] Medica l 2021-08-18 2021-08-18 Outpatient PRIV PRIV [id number] [facility] 11:31:00 11:31:00 [id number] Medica l 2021-08-16 2021-08-16 Outpatient GC_BVWC_Per PRIV PRIV [id number] [facility] 04:18:00 04:18:00 rone_J [id number] Medica l 2021-08-16 2021-08-16 Tl PEREZ [id number] Univers 00:00:00 00:00:00 Only Unassigned, JUAN 350.1.13.10 ity of [place] [facility] 4.2.7.2.686 Abdifatah as [id number] [facility] 009 Branch 2021-08-16 2021-08-16 Outpatient MAYA Lin PRIV [id number] 00:00:00 00:00:00 Olimpia [id number] 2021-08-16 Olimpia [facility] 00:00:00 00:00:00 Riley [facility] MD: [address] GC_BVWC_Col [facility] [address], [place] Office* [address], [place] [address] , Ph. 2021-08-14 2021-08-14 Outpatient GC_BVWC_Per PRIV PRIV [id number] [facility] 09:40:00 09:40:00 rone_J [id number] Medica l 2021-08-14 2021-08-14 Outpatient GC_BVWC_Per PRIV PRIV [id number] [facility] 09:40:00 09:40:00 rone_J [id number] Medica l 2021-08-10 2021-08-10 Outpatient GC_BVWC_Per PRIV PRIV [id number] [facility] 01:22:00 01:22:00 rone_J [id number] Medica l 2021-08-04 2021-08-04 Emergency ER Candi, STLSJX STLSJX [id number] STLSJX 10:29:00 12:34:00 Giuseppe -[id number] 2021-08-03 Outpatient GC_BVWC_Per PRIV PRIV [id number] [facility] 11:49:00 11:49:00 rone_J [id number] Medica l 2021-07-30 2021-07-30 Emergency ER Slater, STLSJX STLSJX [id number] STLSJX 20:31:00 23:46:00 Christopher -[id number] 2021-06-18 2021-06-18 Outpatient GC_BVWC_Per PRIV PRIV [id number] [facility] 08:51:00 08:51:00 rone_J [id number] Medica l 2021-06-14 2021-06-14 Outpatient GC_BVWC_Per PRIV PRIV [id number] [facility] 03:55:00 03:55:00 rone_J [id number] Medica l 2021-06-14 2021-06-14 Outpatient Riley, PRIV PRIV [id number] 00:00:00 00:00:00 Olimpia [id number] 2021-06-14 2021-06-14 Olimpia [facility] 00:00:00 00:00:00 Riley [facility] MD: 1602 GC_BVWC_Col [facility], [facility] Office* [address], [place] [address] , Ph. 2021-06-13 2021-06-13 Outpatient GC_BVWC_Per PRIV PRIV 234 [id number] [facility] 09:49:00 09:49:00 rone_J [id number] Medica l 2021-06-09 2021-06-09 Outpatient GC_BVWC_Sou PRIV PRIV 234 [id number] [facility] 11:44:00 11:44:00 th_J [id number] Medica l 2021-05-17 2021-05-17 Outpatient GC_BVWC_Sou PRIV PRIV 234 [id number] [facility] 05:19:00 05:19:00 th_J [id number] Medica l 2021-05-14 2021-05-14 Outpatient GC_BVWC_Sou PRIV PRIV 234 [id number] [facility] 10:30:00 10:30:00 th_J [id number] Medica l 2021-05-09 2021-05-09 Outpatient GC_BVWC_Per PRIV PRIV 234 [id number] [facility] 05:50:00 05:50:00 rone_J [id number] Medica l 2021-04-23 2021-04-23 Outpatient GC_BVWC_Per PRIV PRIV 234 [id number] [facility] 05:44:00 05:44:00 ronDavid [id number] Medica l 2021-04-18 2021-04-18 Outpatient GC_BVWC_Per PRIV PRIV 234 [id number] [facility] 04:05:00 04:05:00 ashlyDavid [id number] Medica l 2020-07-04 2020-07-04 [facility] 1.2.840.114 [id number] Univers 00:00:00 00:00:00 Outreach Nicola PRIMARY 350.1.13.10 i ty [facility] [place]2.7.2.[place] [id number] Mo dical [address] 2020-04-19 2020-04-19 Laboratory Lab, Adc Fam Pob I [facility] 1.2. 840.114 [id number] Univers 15:46:49 16:06:49 Only Nadiya Blanco [facility] 350.1.13.10 ity [facility] 4.2.7.2.686 Abdifatah as Professio [phone] Mo dical nal [address] 2020-04-19 2020-04-19 Outpatient R BELLA [facility] [id number] Univers 15:20:00 15:20:00 [facility] 2019-12-12 2019-12-12 Nurse CHRIS Jolly 1.2.840.114 [id number] Univers 00:00:00 00:00:00 Triage Adore JUAN 350.1.13.10 it y [facility] 4.2.7.2.686 Abdifatah as [id number] [address] 2019-12-02 2019-12-02 Outpatient R LEANN [facility] [id number] Univers 14:00:00 14:00:00 CHERRY amadoy o f [facility] 2019-12-02 2019-12-02 Office [facility] 1.2.840.114 [id number] Univers 13:25:06 13:40:06 Visit [place] CHIEF SERVICE DISPATCHER 350.1.13.10 ity [facility] 4.2.7.2.686 Abdifatah as MATERNAL [phone] Med ical & CHILD [address] [place] [address] 2019-12-01 2019-12-01 Telephone [facility] 1.2.035.113 [id number] Univers 00:00:00 00:00:00 Rosjean-pierrenda R CHIEF SERVICE DISPATCHER 350.1.13.10 ity of [facility] 4.2.7.2.686 Abdifatah as MATERNAL [id number] [address] 2019-11-30 2019-11-30 Telephone [facility] 1.2.760.650 [id number] Univers 00:00:00 00:00:00 Rosjean-pierrenda R CHIEF SERVICE DISPATCHER 350.1.13.10 ity of [facility] 4.2.7.2.686 Abdifatah as MATERNAL [id number] [address] 2019-11-04 2019-11-04 Office [facility] 1.2.840.114 [id number] Univers 14:03:07 14:46:23 Visit Cherry R CHIEF SERVICE DISPATCHER 350.1.13.10 ity of [facility] 4.2.7.2.686 Abdifatah as MATERNAL [id number] [address] 2019-11-04 2019-11-04 Outpatient Liz NORIEGA [facility] [id number] Univers 13:45:00 13:45:00 CHERRY morocho o f [facility] 2019-11-02 2019-11-02 CHRIS Otero 1.2.840.114 [id number] Univers 00:00:00 00:00:00 Triage Francie Haas JUAN 350.1.13.10 ity of [facility] 4.2.7.2.686 Abdifatah as [id number] [address] 2019-10-13 2019-10-[address] [facility] [id number] Univers 11:00:00 11:00:00 CHERRY ity o f [facility] 2019-09-20 2019-09-20 Office [facility] 1.2.840.114 [id number] Univers 14:22:04 14:37:04 Visit Cherry R CHIEF SERVICE DISPATCHER 350.1.13.10 ity of REGIONAL 4.2.7.2.686 Abdifatah as MATERNAL [phone] Med ical & CHILD [address] [place] [address] 2019-09-20 2019-09-20 Outpatient Liz NORIEGA [facility] [id number] Univers 13:45:00 13:45:00 ALVAREZNDA ity o f [facility] 2019-09-08 2019-09-[address] [facility] [id number] Univers 09:30:00 09:30:00 GLORIAREGI amadojun o f [facility] 2019-09-03 2019-09-03 Routine [facility] 1.2.354.471 [id number] Univers 15:07:52 15:51:46 Gilbert C CHIEF SERVICE DISPATCHER 350.1.13.10 ity of Visit REGIONAL 4.2.7.2.686 Abdifatah as MATERNAL [id number] Med ical & CHILD [address] [place] [address] 2019-09-03 2019-09-[address] [facility] [id number] Univers 14:45:00 14:45:00 GILBERTJARROD morocho o f [facility] 2019-09-03 2019-09-03 Telephone [facility] 1.2.410.562 [id number] Univers 00:00:00 00:00:00 Roshunda R CHIEF SERVICE DISPATCHER 350.1.13.10 ity of REGIONAL 4.2.7.2.686 Abdifatah as MATERNAL [id number] Med ical & CHILD [address] [place] [address] 2019-09-03 2019-09-03 [facility] 1.2.840.114 [id number] Univers 00:00:00 00:00:00 Gilbert C CHIEF SERVICE DISPATCHER 350.1.13.10 ity of REGIONAL 4.2.7.2.686 Abdifatah as MATERNAL [id number] Med ical & CHILD [address] [place] [address] 2019 2019 Telephone [facility] 1.2.549.272 [id number] Univers 00:00:00 00:00:00 Roshunda R CHIEF SERVICE DISPATCHER 350.1.13.10 ity of REGIONAL 4.2.7.2.686 Abdifatah as MATERNAL [id number] Med ical & CHILD [address] [place] [address] 2019-08-17 2019-08-[address] [facility] [id number] Univers 13:15:00 13:15:00 ALVAREZLEEANNE ity o f [facility] 2019-08-17 2019-08-17 Telemedici [facility] 1.2.840.114 [id number] Univers 11:02:12 11:17:12 ne Visit Alvarezleeanne R CHIEF SERVICE DISPATCHER 350.1.13.10 ity of REGIONAL 4.2.7.2.686 Abdifatah as MATERNAL [id number] [facility] & CHILD [address] [place] [address] 2019-08-17 2019-08-17 Orders Doctor CHRIS 1.2.840.114 [id number] Univers 00:00:00 00:00:00 Only Unassigned, JUAN 350.1.13.10 ity of [place] [facility] 4.2.7.2.686 Abdifatah as [id number] [address] 2019-08-16 2019-08-16 Telephone [facility] 1.2.038.479 [id number] Univers 00:00:00 00:00:00 Alvarezleeanne R CHIEF SERVICE DISPATCHER 350.1.13.10 ity of REGIONAL 4.2.7.2.686 Abdifaath as MATERNAL [id number] [facility] & CHILD [address] [place] [address] 2019-08-06 2019-08-06 1.2.840.1 1.2.840.114 [id number] Univers 00:00:00 00:00:00 Encounter [id number] 350.1.13.10 ity of 3[place]104.2.[place] .[id number] 570 Medica [facility] 2019-08-04 2019-08-04 1.2.840.1 1.2.840.114 [id number] Univers 00:00:00 00:00:00 Encounter [id number] 350.1.13.10 ity of 3[place]104.2.[place] .[id number] 570 Medica [facility] 2019-08-03 2019-08-03 1.2.840.1 1.2.840.114 [id number] Univers 00:00:00 00:00:00 Encounter [id number] 350.1.13.10 ity of 3.104.2.7 [place].696 [place] .[id number] 570 Medica [facility] 2019-07-29 2019-07-29 Telephone Unknown, [facility] 1.2.840.114 [id number] Univers 00:00:00 00:00:00 Attending CHIEF SERVICE DISPATCHER 350.1.13.10 ity of [facility] 4.2.7.2.686 Abdifatah as MATERNAL [id number] Med ical & CHILD 107 [facility] 2019-07-25 2019-07-28 Inpatient P TED MODI [facility] NATALI 1 [id number] Univers 13:33:00 14:53:00 TED MODI ity of [facility] 2019-07-25 2019-07-28 Hospital Teresa Guerrero 1.2.8 40.114 [id number] Univers 13:33:00 14:53:00 Encounter Ted Modi 350.1.13.10 ity of [facility] 4.2.7.2.686 Abdifatah as [id number] [facility] [address] 2019-07-27 2019-07-[address] [facility] [id number] Univers 08:15:00 08:15:00 CHERRY morocho o f [facility] 2019-07-25 2019-07-25 Orders Doctor PEREZ 1.2.840.114 [id number] Univers 00:00:00 00:00:00 Only Unassigned, JUAN 350.1.13.10 ity of [place] [facility] 4.2.7.2.686 Abdifatah as [id number] [facility] [address] 2019-07-15 2019-07-15 Telemedici [facility] 1.2.840.114 [id number] Univers 13:10:31 14:59:08 ne Visit Cherry R CHIEF SERVICE DISPATCHER 350.1.13.10 ity of [facility] 4.2.7.2.686 Abdifatah as MATERNAL [id number] Med ical & CHILD [address] [place] [address] 2019-07-15 2019-07-[address] [facility] [id number] Univers 13:30:00 13:30:00 ROSHUNDA ity o f [facility] 2019-07-15 2019-07-15 Telephone [facility] 1.2.294.548 [id number] Univers 00:00:00 00:00:00 Roshunda R CHIEF SERVICE DISPATCHER 350.1.13.10 ity of REGIONAL 4.2.7.2.686 Abdifatah as MATERNAL [id number] [facility] ical & CHILD [address] [place] [address] 2019-06-30 2019-06-[address] [facility] [id number] Univers 12:45:00 12:45:00 ROSJEAN-PIERRENDA ity o f [facility] 2019-06-29 2019-06-29 [facility] 1.2.840.114 [id number] Univers 14:49:25 15:24:31 Roshunda R CHIEF SERVICE DISPATCHER 350.1.13.10 ity of Visit REGIONAL 4.2.7.2.686 Abdifatah as MATERNAL [id number] [facility] ica & CHILD [address] [place] [address] 2019-06-29 2019-06-[address] [facility] [id number] Univers 15:00:00 15:00:00 ALVAREZNDA ity o f [facility] 2019-06-26 2019-06-27 [facility] 1.2.840.114 [id number] Univers 22:23:00 00:10:00 Encounter Teresa Chowdhury 350.1.13.10 ity of [place] 4[place]2.7.2.686 [place] [id number] [address] 2019-06-25 2019-06-25 Telephone [facility] 1.2.945.920 [id number] Univers 00:00:00 00:00:00 Roshunda R CHIEF SERVICE DISPATCHER 350.1.13.10 ity of REGIONAL 4.2.7.2.686 Abdifatah as MATERNAL [id number] [facility] ical & CHILD [address] [place] [address] 2019-06-18 2019-06-18 Emergency [facility] 1.2.840.114 [id number] Univers 20:22:52 21:46:00 Glo Chowdhury 350.1.13.10 ity of [place] 4.2.7.2.686 [id number] [address] 2019-06-16 2019-06-16 Routine [facility] 1.2.840.114 [id number] Univers 12:47:10 13:41:25 Roshunda R CHIEF SERVICE DISPATCHER 350.1.13.10 ity of Visit REGIONAL 4.2.7.2.686 Abdifatah as MATERNAL [id number] [facility] ical & CHILD [address] [place] [address] 2019-06-16 2019-06-[address] [facility] [id number] Univers 12:45:00 12:45:00 ROSHUNDA ity o f [facility] 2019-05-26 2019-05-26 Routine [facility] 1.2.840.114 [id number] Univers 10:18:18 12:58:33 Roshunda R CHIEF SERVICE DISPATCHER 350.1.13.10 ity of Visit [facility] 4.2.7.2.686 Abdifatah as MATERNAL [id number] [facility] & [address] 2019-05-23 2019-05-23 Emergency [facility] ERT [id number] Univers 18:18:07 21:18:00 ABHAY ity of [facility] 2019-05-23 2019-05-23 Emergency [facility] 1.2.042.746 [id number] Univers 18:18:07 21:18:00 Abhay Chowdhury 350.1.13.10 i ty of [place] 4.2.7.2.686 [facility] [id number] [address] 2019-05-23 2019-05-23 Orders Doctor PEREZ 1.2.840.114 [id number] Univers 00:00:00 00:00:00 Only Unassigned, JUAN 350.1.13.10 ity of [place] [facility] 4.2.7.2.686 Abdifatah as [id number] [address] 2018-11-25 2018-11-25 Office [facility] 1.2.840.114 [id number] [facility] 13:54:04 14:27:51 Visit StuCarmen Clayton 350.1.13.10 ity of [place]2.[place] [facility] [id number] [address] 2018-11-25 2018-11-25 Letter [facility] 1.2.840.114 [id number] Univers 00:00:00 00:00:00 (Out) Carmen Peraza 350.1.13.10 ity of [place]2.[place] [facility] [id number] [address] 2018-11-25 2018-11-25 Telephone [facility] 1.2.840.11 4 [id number] Univers 00:00:00 00:00:00 Carmen Peraza 350.1.13.10 ity of Pediatric 4.2.7.2.686 [place] [facility] [id number] [address] 2018-11-25 2018-11-25 Orders Doctor CRHIS 1.2.840.114 [id number] Univers 00:00:00 00:00:00 Only Unassigned, JUAN 350.1.13.10 ity of [place] [facility] 4.2.7.2.686 Abdifatah as [id number] [address] Results Test Description Test Time Test Comments Results Result Comments Source POCT MOLECULAR STREP 2022-01-05 21:17:20 Test Item Value Reference Range Interpretation Comme nts POCT Molecular Strep (test code = 39890-2) Negative Negative Lab Interpretation (test code = 10443-1) Normal [facility] panel - Blood by Automated [id number] 00:00:00 Test Item Value Reference Range Interpretation [...] code = baso #) 0.1 10 0.0-0.2 [facility] MedicalThyrotropin [Units/volume] in Serum or [id number] 00:00:00 Test Item Value Reference Range Interpretation Comments TSH (test code = TSH) 0.958 uIU/mL 0.178-4.530 [facility] MedicalUrinalysis complete panel - [id number] 15:09:00 Test Item Value Reference Range Interpretation Comments Leukocytes (test code = Leukocytes) Negative Nitrite (test code = Nitrite) Negative Urobilinogen (test code = 0.2 Urobilinogen) Protein (test code = Protein) Trace PH (test code = PH) 7.5 Blood (test code = Blood) Negative Specific Buckeye (test code = 1.020 Specific Buckeye) Ketone (test code = Ketone) Negative Bilirubin (test code = Bilirubin) Negative Glucose (test code = Glucose) Negative Appearance (test code = Appearance) Clear Color (test code = Color) Yellow [facility] MedicalUrinalysis complete panel - [id number] 11:41:00 Test Item Value Reference Range Interpretation Comments Leukocytes (test code = Negative Leukocytes) Nitrite (test code = Negative Nitrite) Urobilinogen (test code = 1 Urobilinogen) Protein (test code = Trace Protein) PH (test code = PH) 6.5 Blood (test code = Blood) Non-Hemolyzed: Trace Specific [place]keye (test 1.030 code = Specific [place]) Ketone (test code = Negative Ketone) Bilirubin (test code = Negative Bilirubin) Glucose (test code = Negative Glucose) Appearance (test code = Slightly Cloudy Appearance) Color (test code = Color) Dark Yellow [facility] MedicalPOCT URINALYSIS W/O SPECIFIC [id number] 20:21:00 Test Item Value Reference Range Interpretation [...] code = 3257) Neg Negative - Negative [facility]udaGROUP B STREPTOCOCCUS BY [id number] 15:28:00 Test Item Value Reference Range Interpretation Comments Group B Streptococcus by PCR (test Negative Negative code = 55893-5) Lab Interpretation (test code = Normal 08134-3) [facility]udaGALV ONLY - SYPHILIS [id number] 13:34:00 Test Item Value Reference Range Interpretation Comments Syphilis IgG/IgM (test Non-reactive Non-reactive code = 22806-8) MATTHEW (test code = MATTHEW) Non-reactive - No serologic evidence of T. pallidum infection. Cannot exclude incubating or early syphilis. Submit a second specimen in 2-4 weeks if syphilis is clinically suspected. Equivocal - Further testing to follow. Reactive - Further testing to follow. Lab Interpretation (test Normal code = 53173-7) [facility]udaURINE [id number] 11:54:00 Test Item Value Reference Range Interpretation Comments URINE CULTURE (test > 100,000 CFU/mL mixed code = 630-4) aerobic organisms - suggests endogenous microbial contamination [facility] WITH [id number] 09:43:00 Test Item Value Reference Range Interpretation Comments WBC (test code = See_Comment H [Automated 6690-2) message] The sy stem which [...] RDW-SD (test code = 46.4 fL 38.5-49 36349-8) RDW-CV (test code = 14.9 % 11.5-14 H 788-0) PLT (test code = See_Comment H [Automated 777-3) message] The sy stem which generated this result transmitted reference range : 135 - 361 10*3/ ?L. The reference r guy was not used to interpret this result as normal/abnormal . MPV (test code = 9.9 fL 9.4-13.3 91557-6) NRBC/100 WBC (test See_Comment [Automat ed code = 3332394404) message] The system which generated this result transmitted reference range : 0.0 - 10.0 /100 WBCs. The refer ence range was not u sed to interpret th is result as normal/abnormal . NRBC x10^3 (test code <0.01 See_Comment [Auto mated = 3261651516) message] The s ystem which generated this result transmitted reference range : 10*3/?L. The reference range was not used to interpret this result as normal/abnormal . GRAN MAT (NEUT) % 71.4 % (test code = 770-8) IMM GRAN % (test code 0.70 % = 8287370385) LYMPH % (test code = 19.1 % 736-9) MONO % (test code = 7.4 % 5905-5) EOS % (test code = 1.0 % 713-8) BASO % (test code = 0.4 % 706-2) GRAN MAT x10^3(ANC) 9.83 10*3/uL 1.5-10.3 (test code = 2838026898) IMM GRAN x10^3 (test 0.09 10*3/uL 0-0.06 H code = 9251102821) LYMPH x10^3 (test code 2.62 10*3/uL 0.7-7.4 = 731-0) MONO x10^3 (test code 1.01 10*3/uL 0-0.5 H = 742-7) EOS x10^3 (test code = 0.14 10*3/uL 0-0.4 711-2) BASO x10^3 (test code 0.05 10*3/uL 0-0.1 = 704-7) Lab Interpretation Abnormal (test code = 07651-9) [facility] BudaType and Screen - ONCE [id number] 21:35:19 Test Item Value Reference Range Interpretation Comments ABO & RH (test code A POSITIVE Performe d at [facility] = 20) Laboratory Serv [facility] Blood Bank[address] [place] [address]Rnok Free: [phone] A No. [id number] IAT (test code = Negative Performed a t [facility] 1185) Laboratory Serv [facility] [address] [place] [address] s [address]Xhvh Free: [phone] A No. [id number] [facility] BudaRHO (D) IMMUNE [id number] 21:04:00 Test Item Value Reference Range Interpretation Comments RHIG CANDIDATE? No- see comment Patient i s not a (test code = candidate for R hIg- 5055) Patient is Rh Positive.Perfor med at [facility] Laboratory Services - [facility] Blood [address] [place], [place] [address]Theh Free: [phone] A No. [id number] [facility] BudaVENOUS CORD [id number] 15:51:00 Test Item Value Reference Range Interpretation Comments VENOUS BASE EXCESS, CORD mEq/L (test code = 0661616841) VENOUS PH, CORD (test 7.25-7.45 code = 9129449984) VENOUS PC02, CORD (test See_Comment H [Au tomated message] code = 2731664708) The syste m which generated this result transmitted ref erence range: 27 - 49 mmHg. The reference r guy was not used to interpret this result as normal/abnor mal. VENOUS PO2, CORD (test See_Comment L [Aut omated message] code = 8491173215) The syste m which generated this result transmitted ref erence range: 17 - 41 mmHg. The reference r guy was not used to interpret this result as normal/abnor mal. VENOUS BICARBONATE, CORD See_Comment [A utomated message] (test code = 6378501813) The system which generated this result transmitted ref erence range: 12 - 29 mEq/L. The reference r guy was not used to interpret this result as normal/abnor mal. Lab Interpretation (test Abnormal code = 66915-0) [facility] BudaARTERIAL CORD [id number] 15:45:00 Test Item Value Reference Range Interpretation Comments BASE EXCESS, CORD mEq/L (test code = 2429967198) AC PH, CORD (BEAKER) 7.18-7.38 (test code = 6533308012) PC02, CORD (test code See_Comment [Auto mated message] The = 3608268999) system which g enerated this result transmit elisabeth reference range : 32 - 66 mmHg. The refer ence range was not used to interpret this result as normal/abnormal . PO2, CORD (test code See_Comment [Autom ated message] The = 3384683364) system which g enerated this result transmit elisabeth reference range : 10 - 30 mmHg. The refer ence range was not used to interpret this result as normal/abnormal . BICARBONATE, CORD See_Comment [Automate d message] The (test code = system which ge nerated this 8212102386) result transmit elisabeth reference range : 17 - 27 mEq/L. The refe rence range was not used to interpret this result as normal/abnormal . [facility] BudaADC OR OLYA ONLY - [id number] 08:22:00 Test Item Value Reference Range Interpretation Comments RPR (Qualitative) (test code = Nonreactive Nonreactive 94607-6) Lab Interpretation (test code = Normal 06151-3) [facility] BudaProtein CREAT Ratio Urine [id number] 00:50:00 Test Item Value Reference Range Interpretation Comments T. PROT U (test >1000 mg/dL code = 2888-6) CREAT U (test code 149.6 mg/dL = 5355617296) Protein/Creatinine Unable to calculate Ratio Urine (test because, e ither urine code = 5693178316) total pro tein, urine creatinine, or both are greater than th e linearity of th e analyzer. [facility] BudaHEPATITIS B SURFACE [id number] 23:04:00 Test Item Value Reference Range Interpretation Comments HBsAg Semi-Quantitative (test code = Negative Negative 5195-3) [facility] BudaHIV 1/2 AG-AB WITH [id number] 22:50:00 Test Item Value Reference Range Interpretation Comments HIV Negative Negative Semi-quantitative (test code = 46234-3) MATTHEW (test code = Non-reactive for HIV-1 MATTHEW) antigen and HIV-1/HIV-2 antibodies. ?No laboratory evidence of HIV infection. ?Repeat in 2-4 weeks if acute HIV infection is suspected. [facility] BudaUS PELVIS > 14 [id number] 21:56:331. Single live intrauterine with size equals dates. 2. Normal biophysical profile. RL: 3901AFC: 63602 End of report EXAM: US PELVIS > 14 WEEKS, US BIOPHYSICAL PROFILE Ordering Physician: MARIELLE ?DICLEMENTE HISTORY: Abdominal pain. Hypertension. Possible preeclampsia. [...] fluid volume for a total of 11/19. Nemb, Radiant Results Inft User - 07/26/2019 2:41 [...] size equals dates.2. Normal biophysical profile.RL: 3901AFC: 95309Hgc of report [facility] US BIOPHYSICAL [id number] 21:55:081. Single live intrauterine with size equals dates. 2. Normal biophysical profile. RL: 3901AFC: 63895 End of report EXAM: US PELVIS > 14 WEEKS, US BIOPHYSICAL PROFILE Ordering Physician: MARIELLE JACKMAN HISTORY: Abdominal pain. Hypertension. Possible preeclampsia. [...] 8/8. [facility], Radiant Results Inft User - 07/25/2019 [...] size equals dates.2. Normal biophysical profile.RL: 3901AFC: 52872Vii of report UnH[facility] KingwoodType and Screen - ONCE [id number] 20:25:29 Test Item Value Reference Range Interpretation Comments ABO & RH (test code A Positive Performe d at [facility] = 20) Laboratory Serv [facility] [place], [place] [id number] Free: [phone] A No. [id number] IAT (test code = Negative Performed a t [facility] 1185) Laboratory Serv [facility] [address] [place], [place] [address]Toll Free: [phone] A No. [id number] [facility] BudaAlanine Amino Transferase (SGPT)2019-07-25 20:14:00 Test Item Value Reference Range Interpretation Comments ALTv (test code = 1742-6) 22 U/L 5-35 Lab Interpretation (test code = Normal 35213-1) [facility]uda[facility] Acid [id number] 20:13:00 Test Item Value Reference Range Interpretation Comments URIC ACID (test code = 1394756623) 4.3 mg/dL 2.9-6 Lab Interpretation (test code = Normal 72258-7) [facility] BudaSerum [id number] 20:13:00 Test Item Value Reference Range Interpretation Comments CREATININE (test code = 0.39 mg/dL 0.5-1.04 L [id number]) eGFR Calculation mL/min/1.73m2 (Non-) (test code = [id number]) eGFR Calculation mL/min/1.73m2 () (test code = 2039411298) MATTHEW (test code = MATTHEW) Association of [...] tests). Lab Interpretation Abnormal (test code = 71074-8) [facility]Asparate Amino Transfer[facility]2019-07-25 20:13:00 Test Item Value Reference Range Interpretation Comments AST(SGOT) (test code = 7987176227) 37 U/L 13-40 Lab Interpretation (test code = Normal 10489-9) [facility]act[facility] [id number] 20:13:00 Test Item Value Reference Range Interpretation Comments LDH (test code = 5169601759) 556 U/L 300-600 Lab Interpretation (test code = Normal 80693-1) [facility]inalysis2020-04-12 20:12:00 Test Item Value Reference Range Interpretation Comments APPEARANCE (test code = Hazy Clear A 3573157637) COLOR (test code = Yellow Yellow 2705851050) PH (test code = 4.8-8.0 8982107703) SP GRAVITY (test code = 1.003-1.030 0772557271) GLU U QUAL (test code = Normal Normal 1554987233) BLOOD (test code = Negative Negative 1684703186) KETONES (test code = Negative Negative 6446766528) PROTEIN (test code = 100 mg/dL Negative A 2887-8) UROBILIN (test code = Normal Normal 4607432813) BILIRUBIN (test code = Negative Negative 3592372200) NITRITE (test code = Negative Negative 8210884352) LEUK VASQUEZ (test code = Negative Negative 8200827869) RBC/HPF (test code = See_Comment [Autom ated message] 9069038886) The system [employer] generated this result transmit elisabeth reference range : 0 - 3 HPF. The refe rence range was not u sed to interpret th is result as normal/abnormal . WBC/HPF (test code = See_Comment H [Autom ated message] 4289901640) The system [employer] generated this result transmit elisabeth reference range : 0 - 5 HPF. The refe rence range was not u sed to interpret th is result as normal/abnormal . BACTERIA (test code = Many Negative A 4999822910) MUCOUS (test code = Slight Negative LPF A 2453502312) SQ EPITH (test code = HPF 3848871019) HYAL CAST (test code = See_Comment H [Aut omated message] 7956153501) The system [employer] generated this result transmit elisabeth reference range : <=2 LPF. The refere nce range was not u sed to interpret th is result as normal/abnormal . TRANS EPI (test code = See_Comment [Aut omated message] 6741201678) The system [employer] generated this result transmit elisabeth reference range : <=1 HPF. The refere nce range was not u sed to interpret th is result as normal/abnormal . ROMELIA EPITH (test code = See_Comment [Aut omated message] 9290797452) The system [employer] generated this result transmit elisabeth reference range : <=1 HPF. The refere nce range was not u sed to interpret th is result as normal/abnormal . WBC CAST (test code = See_Comment H [Auto mated message] 7483786201) The system [employer] generated this result transmit elisabeth reference range : <=1 LPF. The refere nce range was not u sed to interpret th is result as normal/abnormal . GRAN CASTS (test code = See_Comment [Au tomated message] 7585516792) The system [employer] generated this result transmit elisabeth reference range : <=1 LPF. The refere nce range was not u sed to interpret th is result as normal/abnormal . Lab Interpretation (test Abnormal code = 01900-1) [facility] WITH [id number] 19:56:00 Test Item Value Reference Range Interpretation [...] RDW-SD (test code = 42.6 fL 38.5-49 20645-0) RDW-CV (test code = 13.9 % 11.5-14 788-0) PLT (test code = See_Comment H [Automated 777-3) message] The sy stem which generated this result transmitted reference range : 135 - 361 10*3/ ?L. The reference r guy was not used to interpret this result as normal/abnormal . MPV (test code = 10.0 fL 9.4-13.3 26628-4) NRBC/100 WBC (test See_Comment [Automat ed code = 4021031960) message] The system which generated this result transmitted reference range : 0.0 - 10.0 /100 WBCs. The refer ence range was not u sed to interpret th is result as normal/abnormal . NRBC x10^3 (test code <0.01 See_Comment [Auto mated = 3176050228) message] The s ystem which generated this result transmitted reference range : 10*3/?L. The reference range was not used to interpret this result as normal/abnormal . GRAN MAT (NEUT) % 69.6 % (test code = 770-8) IMM GRAN % (test code 0.50 % = 6189683710) LYMPH % (test code = 18.8 % 736-9) MONO % (test code = 8.1 % 5905-5) EOS % (test code = 2.6 % 713-8) BASO % (test code = 0.4 % 706-2) GRAN MAT x10^3(ANC) 7.80 10*3/uL 1.5-10.3 (test code = 9833623762) IMM GRAN x10^3 (test 0.06 10*3/uL 0-0.06 code = 0471614212) LYMPH x10^3 (test code 2.11 10*3/uL 0.7-7.4 = 731-0) MONO x10^3 (test code 0.91 10*3/uL 0-0.5 H = 742-7) EOS x10^3 (test code = 0.29 10*3/uL 0-0.4 711-2) BASO x10^3 (test code 0.05 10*3/uL 0-0.1 = 704-7) Lab Interpretation Abnormal (test code = 42730-4) [facility]ON[facility] COVID-19 [id number] 19:49:00 Test Item Value Reference Range Interpretation Comments SARS-CoV-2 (test code = Not Detected Not Detected 57350-8) MATTHEW (test code = MATTHEW) ID NOW COVID-19 Assay is an isothermal nucleic acid amplification test intended for the qualitative detection of nucleic acid from SARS-CoV-2 viral RNA in nasopharyngeal ([employer]) specimens. It is used under Emergency Use [...] indicated. Lab Interpretation Normal (test code = 16159-4) [facility] URINALYSIS W/O SPECIFIC [id number] 20:03:00 Test Item Value Reference Range Interpretation [...] Negative Lab Interpretation (test code = Abnormal 45346-0) [facility] URINALYSIS W/O SPECIFIC [id number] 20:03:00 Test Item Value Reference Range Interpretation [...] Negative Lab Interpretation (test code = Abnormal 37891-8) [facility]udaAD,CLC OR L[facility] ONLY - INFLUENZA A & B DIRECT [id number] 03:20:00 Test Item Value Reference Range Interpretation Comments Influenza A (test code = 40212-6) Negative Negative Influenza B (test code = 12091-7) Negative Negative Lab Interpretation (test code = Normal 56479-3) [facility] URINALYSIS GLUCOSE & PROTEIN 2019-05-26 16:42:00 Test Item Value Reference Range Interpretation Comments POCT U PROT (test code = 3259) trace Negative - Negative POCT U GLU (test code = 3256) neg Negative - Negative Lab Interpretation (test code = Abnormal 49928-6) [facility] URINALYSIS W/O SPECIFIC [id number] 16:42:00 Test Item Value Reference Range Interpretation [...] Negative Lab Interpretation (test code = Abnormal 12122-9) [facility] URINALYSIS GLUCOSE & PROTEIN 2019-05-26 16:42:00 Test Item Value Reference Range Interpretation Comments POCT U PROT (test code = 3259) trace Negative - Negative POCT U GLU (test code = 3256) neg Negative - Negative Lab Interpretation (test code = Abnormal 40515-1) [facility] URINALYSIS W/O SPECIFIC [id number] 16:42:00 Test Item Value Reference Range Interpretation [...] Negative Lab Interpretation (test code = Abnormal 88753-0) [facility] URINALYSIS GLUCOSE & PROTEIN 2019-05-26 16:42:00 Test Item Value Reference Range Interpretation Comments POCT U PROT (test code = 3259) trace Negative - Negative POCT U GLU (test code = 3256) neg Negative - Negative Lab Interpretation (test code = Abnormal 44063-9) [facility] URINALYSIS W/O SPECIFIC [id number] 16:42:00 Test Item Value Reference Range Interpretation [...] Negative Lab Interpretation (test code = Abnormal 02884-6) [facility] URINALYSIS GLUCOSE & PROTEIN 2019-05-26 16:42:00 Test Item Value Reference Range Interpretation Comments POCT U PROT (test code = 3259) trace Negative - Negative POCT U GLU (test code = 3256) neg Negative - Negative Lab Interpretation (test code = Abnormal 04170-4) [facility] URINALYSIS W/O SPECIFIC [id number] 16:42:00 Test Item Value Reference Range Interpretation [...] Negative Lab Interpretation (test code = Abnormal 01787-4) [facility] METABOLIC PANEL (19971)2019-05-24 01:58:00 Test Item Value Reference Range Interpretation Comments NA (test code = 138 mmol/L 135-145 8978939221) K (test code = 3.2 mmol/L 3.5-5 L 3188282874) CL (test code = 106 mmol/L 98-108 3514007139) CO2 TOTAL (test code = 23 mmol/L 23-31 5756611482) AGAP (test code = 2-16 4080054754) BUN (test code = 3 mg/dL 7-23 L 0635857309) GLUCOSE (test code = 89 mg/dL 70-110 6382541941) CREATININE (test code = 0.31 mg/dL 0.5-1.04 L 9362884918) TOTAL BILI (test code = <0.1 0.1-1.1 L 0340643575) CALCIUM (test code = 8.9 mg/dL 8.6-10.6 9841117327) T PROTEIN (test code = 6.7 g/dL 6.3-8.2 8805830826) ALBUMIN (test code = 3.8 g/dL 3.5-5 2972145808) ALK PHOS (test code = 98 U/L 34-122 4266512655) ALTv (test code = 12 U/L 5-35 1742-6) AST(SGOT) (test code = 22 U/L 13-40 6031392158) eGFR Calculation mL/min/1.73m2 (Non-) (test code = 2980747383) eGFR Calculation mL/min/1.73m2 () (test code = 8197164760) MATTHEW (test code = MATTHEW) Association of [...] tests). Lab Interpretation Abnormal (test code = 37310-3) [facility]10 01:55:00 Test Item Value Reference Range Interpretation Comments APPEARANCE (test code = Cloudy Clear A 5447100900) COLOR (test code = Yellow Yellow 9075851342) PH (test code = 4.8-8.0 2693277253) SP GRAVITY (test code = 1.003-1.030 0853821664) GLU U QUAL (test code = Normal Normal 2720829583) BLOOD (test code = Negative Negative 3092662804) KETONES (test code = Negative Negative 8519334314) PROTEIN (test code = Negative Negative 2887-8) UROBILIN (test code = 2.0 mg/dL Normal A 1591408478) BILIRUBIN (test code = Negative Negative 6860168201) NITRITE (test code = Negative Negative 4884131677) LEUK VASQUEZ (test code = 500/uL Negative A 4287799060) RBC/HPF (test code = See_Comment H [Autom ated message] 6801515251) The system [employer] generated this result transmit elisabeth reference range : 0 - 3 HPF. The refe rence range was not u sed to interpret th is result as normal/abnormal . WBC/HPF (test code = See_Comment H [Autom ated message] 5577037686) The system [employer] generated this result transmit elisabeth reference range : 0 - 5 HPF. The refe rence range was not u sed to interpret th is result as normal/abnormal . BACTERIA (test code = Many Negative A 0320345614) MUCOUS (test code = Moderate Negative LPF A 9475538824) SQ EPITH (test code = HPF 0604781027) TRANS EPI (test code = <1 See_Comment [Aut omated message] 6763037877) The system [employer] generated this result transmit elisabeth reference range : <=1 HPF. The refere nce range was not u sed to interpret th is result as normal/abnormal . ROMELIA EPITH (test code = <1 See_Comment [Aut omated message] 5704893795) The system [employer] generated this result transmit elisabeth reference range : <=1 HPF. The refere nce range was not u sed to interpret th is result as normal/abnormal . Lab Interpretation (test Abnormal code = 79020-7) [facility] WITH [id number] 01:28:00 Test Item Value Reference Range Interpretation [...] (test code = 38.2 fL 38.5-49 L 29991-0) RDW-CV (test code = 11.9 % 11.5-14 788-0) PLT (test code = See_Comment [Automated 777-3) message] The sy stem which generated this result transmitted reference range : 135 - 361 10*3/ ?L. The reference r guy was not used to interpret this result as normal/abnormal . MPV (test code = 9.8 fL 9.4-13.3 41922-9) NRBC/100 WBC (test See_Comment [Automat ed code = 1902153520) message] The system which generated this result transmitted reference range : 0.0 - 10.0 /100 WBCs. The refer ence range was not u sed to interpret th is result as normal/abnormal . NRBC x10^3 (test code <0.01 See_Comment [Auto mated = 7380353229) message] The s ystem which generated this result transmitted reference range : 10*3/?L. The reference range was not used to interpret this result as normal/abnormal . GRAN MAT (NEUT) % 65.5 % (test code = 770-8) IMM GRAN % (test code 0.50 % = 6253310550) LYMPH % (test code = 23.4 % 736-9) MONO % (test code = 7.4 % 5905-5) EOS % (test code = 2.7 % 713-8) BASO % (test code = 0.5 % 706-2) GRAN MAT x10^3(ANC) 6.10 10*3/uL 1.5-10.3 (test code = 2587570480) IMM GRAN x10^3 (test 0.05 10*3/uL 0-0.06 code = 5183263825) LYMPH x10^3 (test code 2.18 10*3/uL 0.7-7.4 = 731-0) MONO x10^3 (test code 0.69 10*3/uL 0-0.5 H = 742-7) EOS x10^3 (test code = 0.25 10*3/uL 0-0.4 711-2) BASO x10^3 (test code 0.05 10*3/uL 0-0.1 = 704-7) Lab Interpretation Abnormal (test code = 82252-5) [facility]
[2022-04-20 20:13] LABS: SARS-COV-2 RT PCR NEGATIVE (NEGATIVE)
--- NOTE | 2022-04-20 20:16 | EDPHYS ---
Physician Documentation [facility] Name: Kaleigh Alston Age: 21 yrs Sex: Female : 2000 Arrival Date: 04/20/2022 Time: 18:50 Bed [place]1 [facility] MD: ED Physician Noris Johnson HPI: 04/20 21:04 This 21 yrs old Female presents to ER via Ambulatory with complaints of kb Congestion, Sore Throat, Sneezing, Fatigue. 21:04 The patient or guardian reports flu symptoms, myalgias. Onset: The symptoms/episode kb began/occurred yesterday. Severity of symptoms: At their worst the symptoms were mild, in the emergency department the symptoms are unchanged. Modifying factors: The symptoms are alleviated by nothing, the symptoms are aggravated by nothing. Associated signs and symptoms: Pertinent positives: rhinorrhea, sore throat. The patient has not experienced similar symptoms in the past. The patient has not recently seen a physician. Patient reports congestion, sore throat, sneezing, fatigue, malaise, runny nose since yesterday. Denies fever and cough.. Historical: - Allergies: 19:29 Amoxicillin; gets yeast infection; aa9 - Home Meds: 19:29 None [Active]; aa9 - PMHx: 19:29 None; aa9 - PSHx: 19:31 Appendectomy; aa9 - Immunization history:: Adult Immunizations up to date. - Social history:: Smoking status: Patient denies any tobacco usage or history of. ROS: 21:03 Abdomen/GI: Negative for abdominal pain, nausea, vomiting, diarrhea, and constipation. kb 21:03 Constitutional: Positive for fatigue, malaise. 21:03 ENT: Positive for rhinorrhea, sinus congestion, sore throat. 21:03 All other systems are negative. Exam: 21:02 Constitutional: This is a well developed, well nourished patient who is awake, alert, kb and in no acute distress. Head/Face: Normocephalic, atraumatic. ENT: Moist Mucous membranes Cardiovascular: Regular rate and rhythm with a normal S1 and S2. No gallops, murmurs, or rubs. No pulse deficits. Respiratory: Respirations even and unlabored. No increased work of breathing. Talking in full sentences Abdomen/GI: Soft, non-tender. No distention Skin: Warm, dry with normal turgor. Normal color. MS/ Extremity: Pulses equal, no cyanosis. Neurovascular intact. Full, normal range of motion. Neuro: Awake and alert, GCS 15, oriented to person, place, time, and situation. Moves all extremities. Normal gait. Vital Signs: 19:28 Pulse 75; Resp 18 S; Temp 97.9(O); Pulse Ox 98% on R/A; Weight 61.23 kg (R); Height 5 aa9 ft. 7 in. (170.18 cm) (R); Pain 0/10; 20:49 BP 109 / 84; Pulse 79; Resp 19; Temp 98.2(O); Pulse Ox 96% on R/A; Pain 0/10; fu 19:28 Body Mass Index 21.14 (61.23 kg, 170.18 cm) aa9 MDM: 19:23 Patient medically screened. kb 21:02 Differential diagnosis: viral Infection, bacterial infection, URI, bronchitis, Flu, kb COVID. Data reviewed: vital signs, nurses notes. Data interpreted: Pulse oximetry: on room air is 98 %. Interpretation: normal. Counseling: I had a detailed discussion with the patient and/or guardian regarding: the historical points, exam findings, and any diagnostic results supporting the discharge/admit diagnosis, lab results, the need for outpatient follow up, a family practitioner, to return to the emergency department if symptoms worsen or persist or if there are any questions or concerns that arise at home. ED course: I considered the following discharge prescriptions or medication management in the emergency department: Antibiotics considered but not prescribed due to likely viral etiology of illness; Diagnostic test considered but not performed: Chest x-ray considered but not done because patient has clear lung sounds; History obtained from: Patient . 04/20 19:23 Order name: COVID-19/FLU A+B; Complete Time: 20:15 kb Administered Medications: No medications were administered Disposition Summary: 04/20/22 20:15 Discharge Ordered Location: Home kb Condition: Stable kb Diagnosis - Acute upper respiratory infection, unspecified kb Followup: kb - With: Emergency Department - When: As needed - Reason: Worsening of condition Followup: kb - With: Private Physician - When: 2 - 3 days - Reason: Recheck today's complaints, Continuance of care, Re-evaluation by your physician Discharge Instructions: - Discharge Summary Sheet kb - Upper Respiratory Infection, Adult, [id number] kb - Viral Respiratory Infection, Safi-Ms-Mymf kb Forms: - Medication Reconciliation Form kb - Thank You Letter kb - Antibiotic Education kb - Prescription Opioid Use kb Signatures: Dispatcher [employer] Conchis Roque, YUAN-C Shamika Pepe RN RN aa9 Corrections: (The following items were deleted from the chart) 19:32 19:29 PSHx: None; aa9 aa9
--- NOTE | 2022-04-20 20:16 | ER ---
Nurse's Notes [facility] Name: Kaleigh Alston Age: 21 yrs Sex: Female : 2000 Arrival Date: 04/20/2022 Time: 18:50 Bed [place]1 [facility] MD: Diagnosis: Acute upper respiratory infection, unspecified Presentation: 04/20 19:19 Chief complaint: Patient states: I have jeremias having body aches, chills, and headaches. aa9 Coronavirus screen: Vaccine status: Patient reports being unvaccinated. Ebola Screen: No symptoms or risks identified at this time. Initial Sepsis Screen: Does the patient meet any 2 criteria? No. Patient's initial sepsis screen is negative. Does the patient have a suspected source of infection? No. Patient's initial sepsis screen is negative. 19:19 Method Of Arrival: Ambulatory aa9 19:19 Acuity: FRANK 4 aa9 19:20 Risk Assessment: Do you want to hurt yourself or someone else? Patient reports no fu desire to harm self or others. Triage Assessment: 19:29 General: Appears comfortable, slender, Behavior is calm, cooperative, appropriate for aa9 age. Pain: Complains of pain in throat, headache. Neuro: Level of Consciousness is awake, alert, obeys commands, Oriented to person, place, time, situation. Cardiovascular: Patient's skin is warm and dry. Respiratory: Airway is patent Respiratory effort is even, unlabored, Breath sounds are clear. GI: No signs and/or symptoms were reported involving the gastrointestinal system. : No signs and/or symptoms were reported regarding the genitourinary system. Derm: Skin is intact, is healthy with good turgor. Historical: - Allergies: 19:29 Amoxicillin; gets yeast infection; aa9 - Home Meds: 19:29 None [Active]; aa9 - PMHx: 19:29 None; aa9 - PSHx: 19:31 Appendectomy; aa9 - Immunization history:: Adult Immunizations up to date. - Social history:: Smoking status: Patient denies any tobacco usage or history of. Screenin:30 Abuse screen: Denies threats or abuse. Denies injuries from another. aa9 Assessment: 19:43 General: Appears in no apparent distress. Behavior is calm, cooperative, appropriate fu for age. Pain: Denies pain. Cardiovascular: Denies chest pain, nausea, palpitations, syncope. Respiratory: Reports runny nose Respiratory effort is even, unlabored, Respiratory pattern is regular. EENT: Reports sore throat. Derm: Skin is intact. 21:23 Reassessment: Patient and/or family updated on plan of care and expected duration. Pain fu level reassessed. Patient is alert, oriented x 3, equal unlabored respirations, skin warm/dry/pink. Vital Signs: 19:28 Pulse 75; Resp 18 S; Temp 97.9(O); Pulse Ox 98% on R/A; Weight 61.23 kg (R); Height 5 aa9 ft. 7 in. (170.18 cm) (R); Pain 0/10; 20:49 BP 109 / 84; Pulse 79; Resp 19; Temp 98.2(O); Pulse Ox 96% on R/A; Pain 0/10; fu 19:28 Body Mass Index 21.14 (61.23 kg, 170.18 cm) aa9 ED Course: 18:50 Patient arrived in ED. as 18:54 Conchis Arnold FNP-C is [facility]. kb 18:54 Jewel Marquez MD is Attending Physician. kb 19:20 Triage completed. aa9 19:39 Bipin Johnson, RN is Primary Nurse. fu 19:44 Noris Johnson MD is Attending Physician. kb 19:45 Bed in low position. Call light in reach. Side rails up X 1. Pulse ox on. NIBP on. fu 19:45 Arm band placed on right wrist. fu 19:50 No provider procedures requiring assistance completed. fu 21:23 Patient did not have IV access during this emergency room visit. fu Administered Medications: No medications were administered Medication: 21:10 VIS not applicable for this client. fu Outcome: 20:15 Discharge ordered by . kb 21:24 Discharged to home ambulatory. fu 21:24 Condition: good 21:24 Discharge instructions given to patient, Instructed on discharge instructions, follow up and referral plans. Demonstrated understanding of instructions, follow-up care, Prescriptions given X 0 21:26 Patient left the ED. fu Signatures: Conchis Arnold FNP-C FNP-Trina Messer as Bipin Johnson, BHUMIKA RN fu Shamika Cason RN RN aa9 Corrections: (The following items were deleted from the chart) 19:32 19:29 PSHx: None; aa9 aa9
[2022-04-20 22:12] VITALS: BP 109/84; TEMP 98.2; O2SAT 96
== END 2022-04-20 21:26 | disposition home or self-care (01) ==
LOC: ER 18:47
DX: J06.9 Acute upper respiratory infection, unspecified (principal); Z20.822 Contact with and (suspected) exposure to COVID-19; Z88.1 Allergy status to other antibiotic agents
CPT/HCPCS: 0240U; 99283

== ENCOUNTER 2022-10-20 10:57 | Emergency (ER) | payer OTHER ==
--- OUTSIDE RECORDS SUMMARY | 2022-10-20 11:20 | XMS REPORT | Continuity of Care Document ---
:2000 Author Organization [facility] t Address [address] [facility] [address] [place] [address] Care Team Providers Name Role Phone Shonna Moura Primary Care Physician Ravi Kennedy Attending Clinician Unavailable SAMRA REYES Attending Clinician Unavailable SAMRA REYES Attending Clinician Unavailable Rachel Kebede PA-C Attending Clinician RACHEL KEBEDE Attending Clinician Unavailable Unknown, Attending Attending Clinician Unavailable Francie Rooney MA Attending Clinician Unavailable AARON BECERRA Attending Clinician Unavailable Ebrahim LINE RUNNER, Aaron Attending Clinician Doctor Unassigned, [place] Attending Clinician Unavailable AURORA VALENTIN Attending Clinician Unavailable Nils LINE RUNNER, Francie Attending Clinician FRANCIE WRAY Attending Clinician Unavailable Pcp, Patient Does Not Have A Attending Clinician [id number] Provider, [facility] Attending Clinician Unavailable Berny BLANTON, Melisa Attending Clinician MELISA ARRIETA Attending Clinician Unavailable Sarah Parikh RN Attending Clinician Unavailable ELAINA AL Attending Clinician Unavailable Charles LINE RUNNER, Elaina Attending Clinician CHRIS HONEYCUTT Attending Clinician Unavailable Yinka BAEZ, Chris Attending Clinician CATHY DENNISON Attending Clinician Unavailable Cacjohn LINE RUNNER, Cathy Campos Attending Clinician SUSAN DONOHUE Attending Clinician Unavailable Vincmeg LINE RUNNER, Susan Attending Clinician _[facility]_[place]_J Attending Clinician Unavailable Olimpia Lin Attending Clinician [phone] Giuseppe Christopher Attending Clinician Unavailable Christopher Slater Attending Clinician Unavailable _[facility]_J Attending Clinician Unavailable Nicola Pichardo DO Attending Clinician Lab, [facility] Pob I Attending Clinician Unavailable Nadiya Jackson Attending Clinician NADIYA SIMMONS Attending Clinician Unavailable Adore Jolly RN Attending Clinician Unavailable CHERRY NORIEGA Attending Clinician Unavailable Leann BOLDEN, [place] Attending Clinician Francie Israel RN Attending Clinician Unavailable Gilbert Mcgarry Attending Clinician [phone] GILBERT HEADLEY Attending Clinician Unavailable TED BOSS Attending Clinician Unavailable TED BOSS Attending Clinician Unavailable Teresa Diaz MD Attending Clinician Ted Boss MD Attending Clinician Glo Aggarwal DO Attending Clinician ABHAY TREVINO Attending Clinician Unavailable Abhay Mtz Attending Clinician Carmen Buck MD Attending Clinician TERESA DIAZ Admitting Clinician Unavailable SYD PAK Admitting Clinician Unavailable GC_[email or web address]_J Admitting Clinician Unavailable GC_[email or web address]_J Admitting Clinician Unavailable TED BOSS Admitting Clinician Unavailable Ted Boss MD Admitting Clinician Teresa Diaz MD Admitting Clinician Payers Payer Name Policy Type Policy Number Effective Date Expiration Date Keith brewer [facility] [id number] 2019 00:00:00 [facility] [id number] - [place] (MEDICAID O) [place]ICAID [place] [id number] 2019 00:00:00 Problems Condition Condition Condition Status Onset Resolution Last Treating Co mments Source Name Details Category Date Date Treatment Clinician Date Antibiotic Antibiotic Disease Active U nivers causing causing 4-24 ity of adverse adverse 00:00: [place] effect effect 00 Medical Branch intermediate [facility] Disease Active Uni vers (current) (current) 3-16 ity of use of use of 00:00: [place] antibiotic antibiotic 00 Nm dical s s Branch Dysuria Dysuria Disease Active Univers 3-16 ity of 00:00: [place] 00 Medical Branch External External Disease Active Unive rs thrombosed thrombosed 3-16 it y of hemorrhoid [place]oid [place] Personal Personal Disease Active Unive rs history of history of 3-16 it y of allergy [place] penicillin penicillin 00 Nm dical Branch Disease Active 2021-04 Univers (spontaneo (spontaneo 2-05 it y of [place] vaginal [place] vaginal [place] delivery[place] delivery[place] 00 [facility] judy Branch History of History of Disease Active 2022-1 U nivers pre-eclamp pre-eclamp 0-04 it y of eliel in eliel in 00:00: [place] prior prior 00 Medical , , Br anch currently currently in third in third trimester trimester H/O major H/O major Disease Active Uni vers abdominal abdominal 8-24 ity of surgery surgery 00:00: [place] 00 [facility] H/O H/O Disease Active Univers 8-09 ity of delivery, delivery, 00:00: Cam parker currently currently 00 [facility] Branch Bacterial Bacterial Disease Active Uni vers vaginosis vaginosis 5-26 ity of 00:00: [place] 00 [facility] Routine Routine Problem Active [facility] 5-05 [facility] care Care 00:00: 00 Problem Active [facility] a 5-05 Medical 00:00: 00 Gestation Gestation Problem Active Karlene via period, 8 Period, 8 5-05 [facility] weeks Weeks 00:00: 00 Mastitis Mastitis Disease Active Unive rs 5-22 ity of 00:00: [place] 00 [facility] Screening Screening Disease Active Uni vers examinatio examinatio 5-05 it y of n for STD n for STD 00:00: [place] park[place] (sexually (sexually 00 [facility] transmitte transmitte Br anch d disease) d disease) 34 weeks 34 weeks Disease Active 2020-0 Unive rs gestation gestation 4-12 ity of of of 00:00: [place] 00 [facility] Pre-eclamp Pre-eclamp Disease Active 2020-0 U nivers eliel in eliel in 4-12 ity of third third 00:00: [place] trimester trimester 00 [facility] Preeclamps Preeclamps Disease Active 2020-0 U nivers ia, ia, 4-12 ity of severe, severe, 00:00: [place] third third 00 Medical trimester trimester Bran ch Mother's Mother's Disease Active 2020-0 Unive rs group B group B 4-12 ity of Streptococ Streptococ 00:[place] cus cus 00 Medical colonizati colonizati Br anch on status on status unknown unknown Need for Need for Disease Active 2019-0 Unive rs prophylact prophylact 3-04 it y of ic ic 00:00: [place] vaccinatio vaccinatio 00 Me dical n and [...] high 0-03 ity of risk risk 00:00: [place] , , 00 Me dical antepartum antepartum Br anch High risk High risk Disease Active 2018-04 Uni vers teen teen 0-03 [place] of 00:[place] in third in third 00 Medica l trimester trimester Bran ch Primigravi Primigravi Disease Active 2018-04 U nivers da in da in 0-03 ity of second second 00:00: [place] trimester trimester 00 [facility] judy Branch Vaginal Vaginal Disease Active 2018-04 Univers bleeding bleeding 0-03 [place]y of affecting affecting 00:[place] early early 00 Medical Bran ch Nausea Nausea Disease Active 2018-04 Univers without without 0-03 ity of vomiting vomiting 00:00: [place] 00 Medical Branch No known No known Disease Unive rs active active ity of problems problems [facility] Allergies, Adverse Reactions, Alerts Allergy Allergy Status Severity Reaction(s) Onset Inactive Treating Comm ents Source Name Type Date Date Clinician PENICILL Drug Active Unknown-Cmnt 2021-04 Un manav INS Class 0-18 ity of 00:00: [place] 00 Medical Branch Penicill Drug Active Unknown - 2021-04 Unive rs ins Allergy See comments 0-18 ity of 00:00: [place] 00 Medical Branch AMOXICIL DRUG Active Rash Univers LUPE INGREDI 9-18 ity of 00:00: [place] 00 Medical Branch Amoxicil Propensi Active Rash 2017- Univer s lupe ty to 918 ity of adverse 00:00: [place] reaction 00 [facility] s Branch NO KNOWN Drug Active Univers ALLERGIE Class ity of S [facility] PENICILL Allergy Active [facility] INS to Medical substanc e Social History Social Habit Start Date Stop Date Quantity Comments Source ASSERTION 2018-12-10 University of 00:00:00 [facility] History SDOH University o f Alcohol Std [place] Medical Drinks Branch History [facility] o f Alcohol Binge [place] Medic al Branch History [facility] o f Alcohol Comment [place] Med ical Branch History of Current smoker University of tobacco use [facility] Sex Assigned At [facility] Alcohol intake 2022-10-16 2022-10-16 Lifetime University of 00:00:00 00:00:00 non-drinker [facility] (finding) Branch Exposure to 2022-07-29 2022-08-08 Not sure University of SARS-CoV-2 00:00:00 14:16:00 [facility] (event) Branch Tobacco use and 2022-03-27 2022-03-27 Smokeless tobacco Un iversity of exposure 00:00:00 00:00:00 non-user [facility] Branch History SDOH 2019-01-14 2019-01-14 1 University o f Alcohol Frequency 00:00:00 00:00:00 [facility] [place] [facility] edical Branch Smoking Status Start Date Stop Date Source Ex-smoker 2022-03-27 00:00:00 2022-03-27 00:00:00 Universi ty of [facility] Never Smoker [facility] Medications Ordered Filled Start Stop Current Ordering Indication Dosage Frequency Signature Comments Components Source Medication Medication Date Date Medication? Clinician (SIG) Name Name cephALEXin 2022- Yes [id number] 500mg Take 10 mL Univers 250 mg/5 mL 10-16 by mouth 4 i ty of suspension 00:00: 04:59 (four[place] :[place] times Medical daily for Branch 10 days. cephALEXin 2022- Yes [id number] 500mg Take 10 mL Univers 250 mg/5 mL 10-1616 by mouth 4 i ty of suspension 00:00: 04:59 (four[place] :[place] times Medical daily for Branch 10 days. cephALEXin Yes [id number] Take 500mg Univers 125 mg/5 mL 4-27 of ity of suspension 00:00: cephalexin [place] 125/5ml Medical oral Branch suspension (20 ml), orally, four times daily for ten days for treatment of mastitis. terconazole Yes [id number] 80mg Insert 1 Univers 80 mg 4-27 Suppositor ity of vaginal 00:00: y into [place] suppository 00 [facility] Branch cephALEXin 2022-0 Yes [id number] Take 500mg Univers 125 mg/5 mL 4-27 of ity of suspension 00:00: cephalexin [place] 00 125/5ml Medical oral Branch suspension (20 ml), orally, four times daily for ten days for treatment of mastitis. terconazole 2022-0 Yes [id number] 80mg Insert 1 Univers 80 mg 4-27 Suppositor ity of vaginal 00:00: y into [place] suppository 00 vagina at [facility] Branch cephALEXin 2022-0 Yes [id number] Take 500mg Univers 125 mg/5 mL 4-27 of ity of suspension 00:00: cephalexin [place] 00 125/5ml Medical oral Branch suspension (20 ml), orally, four times daily for ten days for treatment of mastitis. terconazole 2022-0 Yes [id number] 80mg Insert 1 Univers 80 mg 4-27 Suppositor ity of vaginal 00:00: y into [place] suppository 00 vagina at [facility]. Branch cephALEXin 2022-0 Yes [id number] Take 500mg Univers 125 mg/5 mL 4-27 of ity of suspension 00:00: cephalexin [place] 00 125/5ml Medical oral Branch suspension (20 ml), orally, four times daily for ten days for treatment of mastitis. terconazole 2022-0 Yes [id number] 80mg Insert 1 Univers 80 mg 4-27 Suppositor ity of vaginal 00:00: y into [place] suppository 00 vagina at [facility]. Branch terconazole 2022-0 Yes [id number] 80mg Insert 1 Univers 80 mg 4-27 Suppositor ity of vaginal 00:00: y into [place] suppository 00 vagina at [facility] Branch terconazole 2022-0 Yes [id number] 80mg Insert 1 Univers 80 mg 4-27 Suppositor ity of vaginal 00:00: y into [place] suppository 00 vagina at [facility] Branch cephALEXin 2022-0 3- No [id number] Take 500mg Univers 125 mg/5 mL 4-27 07-05 of ity of suspension 00:00: 00:00 cephalexin [place] 00 :00 125/5ml Medical oral Branch suspension (20 ml), orally, four times daily for ten days for treatment of mastitis. Prenat Vit 2022-0 Yes Take by Univ ers Comb.10-Iro 4-24 mouth. ity of n-FA-DHA 08:30: [place] 65-1-250 mg 06 Medical combo pack Branch Prenat Vit 2022-0 Yes Take by Univ ers Comb.10-Iro 4-24 mouth. ity of n-FA-DHA 08:30: [place] 65-1-250 mg 06 Medical combo pack Branch Prenat Vit 2022-0 Yes Take by Univ ers Comb.10-Iro 4-24 mouth. ity of n-FA-DHA 08:30: [place] 65-1-250 mg 06 Medical combo pack Branch Prenat Vit 2022-0 Yes Take by Univ ers Comb.10-Iro 4-24 mouth. ity of n-FA-DHA 08:30: [place] 65-1-250 mg 06 Medical combo pack Branch Prenat Vit 2022-0 Yes Take by Univ ers Comb.10-Iro 4-24 mouth. ity of n-FA-DHA 08:30: [place] 65-1-250 mg 06 Medical combo pack Branch Prenat Vit 2022-0 Yes Take by Univ ers Comb.10-Iro 4-24 mouth. ity of n-FA-DHA 08:30: [place] 65-1-250 mg 06 Medical combo pack Branch Prenat Vit 2022-0 Yes Take by Univ ers Comb.10-Iro 4-24 mouth. ity of n-FA-DHA 08:30: [place] 65-1-250 mg 06 Medical combo pack Branch Prenat Vit 2022-0 Yes Take by Univ ers Comb.10-Iro 4-24 mouth. ity of n-FA-DHA 08:30: [place] 65-1-250 mg 06 Medical combo pack Branch Prenat Vit 2022-0 Yes Take by Univ ers Comb.10-Iro 4-24 mouth. ity of n-FA-DHA 08:30: [place] 65-1-250 mg 06 Medical combo pack Branch Prenat Vit 2022-0 Yes Take by Univ ers Comb.10-Iro 4-24 mouth. ity of n-FA-DHA 08:30: [place] 65-1-250 mg 06 Medical combo pack Branch fluconazole 2023-0 Yes [id number] 200mg Take 1 Univers 200 mg 4-24 tablet by ity of tablet 00:00: mouth [place] 00 every 3 Medical (three) Branch days. fluconazole 2023-0 Yes [id number] 200mg Take 1 Univers 200 mg 4-24 tablet by ity of tablet 00:00: mouth [place] 00 every 3 Medical (three) Branch days. fluconazole 2023-0 Yes [id number] 200mg Take 1 Univers 200 mg 4-24 tablet by ity of tablet 00:00: mouth [place] 00 every 3 Medical (three) Branch days. fluconazole 2023-0 Yes [id number] 200mg Take 1 Univers 200 mg 4-24 tablet by ity of tablet 00:00: mouth [place] 00 every 3 Medical (three) Branch days. fluconazole 2023-0 Yes [id number] 200mg Take 1 Univers 200 mg 4-24 tablet by ity of tablet 00:00: mouth [place] 00 every 3 Medical (three) Branch days. fluconazole 2023-0 Yes [id number] 200mg Take 1 Univers 200 mg 4-24 tablet by ity of tablet 00:00: mouth [place] 00 every 3 Medical (three) Branch days. fluconazole 2023-0 Yes [id number] 200mg Take 1 Univers 200 mg 4-24 tablet by ity of tablet 00:00: mouth [place] 00 every 3 Medical (three) Branch days. fluconazole 2023-0 Yes [id number] 200mg Take 1 Univers 200 mg 4-24 tablet by ity of tablet 00:00: mouth [place] 00 every 3 Medical (three) Branch days. fluconazole 2023-0 Yes [id number] 200mg Take 1 Univers 200 mg 4-24 tablet by ity of tablet 00:00: mouth [place] 00 every 3 Medical (three) Branch days. fluconazole 2023-0 Yes [id number] 200mg Take 1 Univers 200 mg 4-24 tablet by ity of tablet 00:00: mouth [place] 00 every 3 Medical (three) Branch days. clindamycin 2023-0 Yes INSERT ONE Univers 2 % cream 4-18 (1) ity of 00:00: APPLICATOR [place] 00 FUL(S) Medical INTO THE Branch VAGINA ONCE DAILY AT BEDTIME FOR 7 DAYS. clindamycin 2023-0 Yes INSERT ONE Univers 2 % cream 4-18 (1) ity of 00:00: APPLICATOR FUL(S) Medical INTO THE Branch VAGINA ONCE DAILY AT BEDTIME FOR 7 DAYS. clindamycin 2023-0 Yes INSERT ONE Univers 2 % cream 4-18 (1) ity of 00:00: APPLICATOR FUL(S) Medical INTO THE Branch VAGINA ONCE DAILY AT BEDTIME FOR 7 DAYS. clindamycin 3-0 Yes INSERT ONE Univers 2 % cream 4-18 (1) ity of 00:00: APPLICATOR FUL(S) Medical INTO THE Branch VAGINA ONCE DAILY AT BEDTIME FOR 7 DAYS. clindamycin 3-0 Yes INSERT ONE Univers 2 % cream 4-18 (1) ity of 00:00: APPLICATOR FUL(S) Medical INTO THE Branch VAGINA ONCE DAILY AT BEDTIME FOR 7 DAYS. clindamycin 3-0 Yes INSERT ONE Univers 2 % cream 4-18 (1) ity of 00:00: APPLICATOR FUL(S) Medical INTO THE Branch VAGINA ONCE DAILY AT BEDTIME FOR 7 DAYS. clindamycin 2022-0 Yes INSERT ONE Univers 2 % cream 4-18 (1) ity of 00:00: APPLICATOR FUL(S) Medical INTO THE Branch VAGINA ONCE DAILY AT BEDTIME FOR 7 DAYS. clindamycin 3-0 Yes INSERT ONE Univers 2 % cream 4-18 (1) ity of 00:00: APPLICATOR FUL(S) Medical INTO THE Branch VAGINA ONCE DAILY AT BEDTIME FOR 7 DAYS. clindamycin 3-0 Yes INSERT ONE Univers 2 % cream 4-18 (1) ity of 00:00: APPLICATOR FUL(S) Medical INTO THE Branch VAGINA ONCE DAILY AT BEDTIME FOR 7 DAYS. clindamycin 2022-0 Yes INSERT ONE Univers 2 % cream 4-18 (1) ity of 00:00: APPLICATOR FUL(S) Medical INTO THE Branch VAGINA ONCE DAILY AT BEDTIME FOR 7 DAYS. clindamycin 2022-0 2022- No [id number] 1{appli Insert 1 Univers 2 % cream 3-20 07-09 cator} Applicator i ty of 00:00: 04:59 into [place] 00 :00 vagina at [facility] for 7 days. metroNIDAZO 2022-2022- No [id number] 500mg Take 1 Univers LE 500 mg 3-19 03-20 tablet by ity of tablet 00:00: 00:00 mouth [place] 00 :00 every 12 Medical (twelve) Branch hours for 7 days. terconazole 2022-0 Yes [id number] 80mg Insert 1 Univers 80 mg 3-16 Suppositor ity of vaginal 00:00: y into [place] suppository 00 vagina at [facility] bedtime. Branch hydrocortis 2022-0 Yes [id number] Insert Univers one 2.5 % 3-16 into ity of rectal 00:00: rectum 2 [place] cream 00 (two) Medical times Branch daily. terconazole 2022-0 Yes [id number] 80mg Insert 1 Univers 80 mg 3-16 Suppositor ity of vaginal 00:00: y into [place] suppository 00 vagina at [facility] bedtime. Branch hydrocortis 2022-0 Yes [id number] Insert Univers one 2.5 % 3-16 into ity of rectal 00:00: rectum 2 [place] cream 00 (two) Medical times Branch daily. terconazole 2022-0 Yes [id number] 80mg Insert 1 Univers 80 mg 3-16 Suppositor ity of vaginal 00:00: y into [place] suppository 00 vagina at [facility] bedtime. Branch hydrocortis 2022-0 Yes [id number] Insert Univers one 2.5 % 3-16 into ity of rectal 00:00: rectum 2 [place] cream 00 (two) Medical times Branch daily. terconazole 2022-0 Yes [id number] 80mg Insert 1 Univers 80 mg 3-16 Suppositor ity of vaginal 00:00: y into [place] suppository 00 vagina at [facility] bedtime. Branch hydrocortis 2022-0 Yes [id number] Insert Univers one 2.5 % 3-16 into ity of rectal 00:00: rectum 2 [place] cream 00 (two) Medical times Branch daily. terconazole 2022-0 Yes [id number] 80mg Insert 1 Univers 80 mg 3-16 Suppositor ity of vaginal 00:00: y into [place] suppository 00 vagina at [facility] bedtime. Branch hydrocortis 2022-0 Yes [id number] Insert Univers one 2.5 % 3-16 into ity of rectal 00:00: rectum 2 [place] cream 00 (two) Medical times Branch daily. terconazole 2022-0 Yes [id number] 80mg Insert 1 Univers 80 mg 3-16 Suppositor ity of vaginal 00:00: y into [place] suppository 00 vagina at Med ica bedtime. Branch hydrocortis 2022-0 Yes [id number] Insert Univers one 2.5 % 3-16 into ity of rectal 00:00: rectum 2 [place] cream 00 (two) Medical times Branch daily. terconazole 2022-0 Yes [id number] 80mg Insert 1 Univers 80 mg 3-16 Suppositor ity of vaginal 00:00: y into [place] suppository 00 vagina at Med ica bedtime. Branch hydrocortis 2022-0 Yes [id number] Insert Univers one 2.5 % 3-16 into ity of rectal 00:00: rectum 2 [place] cream 00 (two) Medical times Branch daily. terconazole 2022-0 Yes [id number] 80mg Insert 1 Univers 80 mg 3-16 Suppositor ity of vaginal 00:00: y into [place] suppository 00 vagina at Med [facility] bedtime. Branch hydrocortis 2022-0 Yes [id number] Insert Univers one 2.5 % 3-16 into ity of rectal 00:00: rectum 2 [place] cream 00 (two) Medical times Branch daily. terconazole 2022-0 Yes [id number] 80mg Insert 1 Univers 80 mg 3-16 Suppositor ity of vaginal 00:00: y into [place] suppository 00 vagina at Med ica bedtime. Branch hydrocortis 2022-0 Yes [id number] Insert Univers one 2.5 % 3-16 into ity of rectal 00:00: rectum 2 [place] cream 00 (two) Medical times Branch daily. terconazole 2022-0 Yes [id number] 80mg Insert 1 Univers 80 mg 3-16 Suppositor ity of vaginal 00:00: y into [place] suppository 00 vagina at Med ica bedtime. Branch hydrocortis 2022-0 Yes [id number] Insert Univers one 2.5 % 3-16 into ity of rectal 00:00: rectum 2 [place] cream 00 (two) Medical times Branch daily. terconazole 2022-0 Yes [id number] 80mg Insert 1 Univers 80 mg 3-16 Suppositor ity of vaginal 00:00: y into [place] suppository 00 vagina at Med [facility] bedtime. Branch hydrocortis 2022-0 Yes [id number] Insert Univers one 2.5 % 3-16 into ity of rectal 00:00: rectum 2 [place] cream 00 (two) Medical times Branch daily. terconazole 2022-0 Yes [id number] 80mg Insert 1 Univers 80 mg 3-16 Suppositor ity of vaginal 00:00: y into [place] suppository 00 vagina at [facility] bedtime. Branch hydrocortis 2022-0 Yes [id number] Insert Univers one 2.5 % 3-16 into ity of rectal 00:00: rectum 2 [place] cream 00 (two) Medical times Branch daily. terconazole 2022-0 Yes [id number] 80mg Insert 1 Univers 80 mg 3-16 Suppositor ity of vaginal 00:00: y into [place] suppository 00 vagina at [facility] bedtime. Branch hydrocortis 2022-0 Yes [id number] Insert Univers one 2.5 % 3-16 into ity of rectal 00:00: rectum 2 [place] cream 00 (two) Medical times Branch daily. terconazole 2022-0 Yes [id number] 80mg Insert 1 Univers 80 mg 3-16 Suppositor ity of vaginal 00:00: y into [place] suppository 00 vagina at [facility] bedtime. Branch hydrocortis 2022-0 Yes [id number] Insert Univers one 2.5 % 3-16 into ity of rectal 00:00: rectum 2 [place] cream 00 (two) Medical times Branch daily. terconazole 2022-0 Yes [id number] 80mg Insert 1 Univers 80 mg 3-16 Suppositor ity of vaginal 00:00: y into [place] suppository 00 vagina at [facility] bedtime. Branch hydrocortis 2022-0 Yes [id number] Insert Univers one 2.5 % 3-16 into ity of rectal 00:00: rectum 2 [place] cream 00 (two) Medical times Branch daily. terconazole 2022-0 Yes [id number] 80mg Insert 1 Univers 80 mg 3-16 Suppositor ity of vaginal 00:00: y into [place] suppository 00 vagina at Med [facility] bedtime. Branch hydrocortis 2022-0 Yes [id number] Insert Univers one 2.5 % 3-16 into ity of rectal 00:00: rectum 2 [place] cream 00 (two) Medical times Branch daily. clindamycin 2023-0 2023- No [id number] 300mg Take 1 Univers 300 mg 3-16 03-24 capsule by ity of capsule 00:00: 04:59 mouth 4 [place] 00 :00 (four) Medical times Branch daily for 7 days. clindamycin 2023-0 2023- No [id number] 300mg Take 1 Univers 300 mg 3-16 03-24 capsule by ity of capsule 00:00: 04:59 mouth 4 [place] 00 :00 (four) Medical times Branch daily for 7 days. clindamycin 2023-0 2023- No [id number] 300mg Take 1 Univers 300 mg 3-16 03-24 capsule by ity of capsule 00:00: 04:59 mouth 4 [place] 00 :00 (four) Medical times [place] daily for 7 days. clindamycin 2023-0 2023- No [id number] 300mg Take 1 Univers 300 mg 3-16 03-24 capsule by ity of capsule 00:00: 04:59 mouth 4 [place] 00 :00 (four) Medical times [place] daily for 7 days. cephALEXin 2023-0 Yes [id number] 500mg Take 10 mL Univers 250 mg/5 mL 3-10 by mouth 4 it y of suspension 00:00: (four) [place] 00 times Medical daily. Branch cephALEXin 2023-0 Yes [id number] 500mg Take 10 mL Univers 250 mg/5 mL 3-10 by mouth 4 it y of suspension 00:00: (four) [place] 00 times Medical daily. Branch cephALEXin 2023-0 Yes [id number] 500mg Take 10 mL Univers 250 mg/5 mL 3-10 by mouth 4 it y of suspension 00:00: (four) [place] 00 times Medical daily. Branch cephALEXin 2023-0 Yes [id number] 500mg Take 10 mL Univers 250 mg/5 mL 3-10 by mouth 4 it y of suspension 00:00: (four) [place] 00 times Medical daily. Branch cephALEXin 2023-0 Yes [id number] 500mg Take 10 mL Univers 250 mg/5 mL 3-10 by mouth 4 it y of suspension 00:00: (four) [place] 00 times Medical daily. Branch cephALEXin 2023-0 Yes [id number] 500mg Take 10 mL Univers 250 mg/5 mL 3-10 by mouth 4 it y of suspension 00:00: (four) [place] 00 times Medical daily. Branch cephALEXin 2023-0 Yes [id number] 500mg Take 10 mL Univers 250 mg/5 mL 3-10 by mouth 4 it y of suspension 00:00: (four) [place] 00 times Medical daily. Branch cephALEXin 2023-0 Yes [id number] 500mg Take 10 mL Univers 250 mg/5 mL 3-10 by mouth 4 it y of suspension 00:00: (four) [place] 00 times Medical daily. Branch cephALEXin 2023-0 Yes [id number] 500mg Take 10 mL Univers 250 mg/5 mL 3-10 by mouth 4 it y of suspension 00:00: (four) [place] 00 times Medical daily. Branch cephALEXin 2023-0 Yes [id number] 500mg Take 10 mL [facility] 250 mg/5 mL 3-10 by mouth 4 it y of suspension 00:00: (four) [place] 00 times Medical daily. Branch cephALEXin 2023-0 Yes [id number] 500mg Take 10 mL [facility] 250 mg/5 mL 3-10 by mouth 4 it y of suspension 00:00: (four) [place] 00 times Medical daily. Branch cephALEXin 2023-0 Yes [id number] 500mg Take 10 mL [facility] 250 mg/5 mL 3-10 by mouth 4 it y of suspension 00:00: (four) [place] 00 times Medical daily. Branch cephALEXin 2023-0 Yes [id number] 500mg Take 10 mL [facility] 250 mg/5 mL 3-10 by mouth 4 it y of suspension 00:00: (four) [place] 00 times Medical daily. Branch cephALEXin 2023-0 Yes [id number] 500mg Take 10 mL [facility] 250 mg/5 mL 3-10 by mouth 4 it y of suspension 00:00: (four) [place] 00 times Medical daily. Branch cephALEXin 2023-0 Yes [id number] 500mg Take 10 mL [facility] 250 mg/5 mL 3-10 by mouth 4 it y of suspension 00:00: (four) [place] 00 times Medical daily. Branch cephALEXin 2023-0 2023- No [id number] 500mg Take 10 mL [facility] 250 mg/5 mL 3-10 07-05 by mouth 4 i ty of suspension 00:00: 00:00 (four) [place] :[place] times Medical daily. Branch fluconazole 2023-0 2023- No [id number] 150mg Take 15 mL [facility] 10 mg/mL 3-10 03-15 by mouth ity of suspension 00:00: 04:59 every 72 [place] 00 :00 (seventy-t Medical wo) hours [place] for 2 doses. Prenat Vit Yes Take by Univ ers Comb.10-Iro 1-21 mouth. ity of n-FA-DHA 16:28: [place] 65-1-250 mg 17 Medical combo pack Branch Prenat Vit Yes Take by [facility] ers Comb.10-Iro 1-21 mouth. ity of n-FA-DHA 16:28: [place] 65-1-250 mg 17 Medical combo pack Branch Prenat Vit Yes Take by [facility] ers Comb.10-Iro 1-21 mouth. ity of n-FA-DHA 16:28: [place] 65-1-250 mg 17 Medical combo pack Branch Prenat Vit Yes Take by [facility] ers Comb.10-Iro 1-21 mouth. ity of n-FA-DHA 16:28: [place] 65-1-250 mg 17 Medical combo pack Branch Prenat Vit Yes Take by [facility] ers Comb.10-Iro 1-21 mouth. ity of n-FA-DHA 16:28: [place] 65-1-250 mg 17 Medical combo pack Branch Prenat Vit Yes Take by Univ ers Comb.10-Iro 1-21 mouth. ity of n-FA-DHA 16:28: [place] 65-1-250 mg 17 Medical combo pack Branch Prenat Vit Yes Take by [facility] ers Comb.10-Iro 1-21 mouth. ity of n-FA-DHA 16:28: [place] 65-1-250 mg 17 Medical combo pack Branch Prenat Vit Yes Take by Univ ers Comb.10-Iro 1-21 mouth. ity of n-FA-DHA 16:28: [place] 65-1-250 mg 17 Medical combo pack Branch Prenat Vit Yes Take by Univ ers Comb.10-Iro 1-21 mouth. ity of n-FA-DHA 16:28: [place] 65-1-250 mg 17 Medical combo pack Branch nystatin 2023-0 Yes [id number] Apply to Un manav 100,000 1-21 area(s) 2 ity of unit/gram 00:00: (two) [place] cream 00 times Medical daily. Branch nystatin 2023-0 Yes [id number] Apply to [facility] man[facility] 100,000 1-21 area(s) 2 ity of unit/gram 00:00: (two) [place] cream 00 times Medical daily. Branch ibuprofen 2023-0 Yes TAKE ONE [facility] ers 600 mg 1-21 (1) ity of tablet 00:00: TABLET(S) [place] 00 BY MOUTH Medical EVERY SIX Branch HOURS NEEDED FOR PAIN (SCALE 4-6). nystatin 2023-0 Yes [id number] Apply to Un manav 100,000 1-21 area(s) 2 ity of unit/gram 00:00: (two) [place] cream 00 times Medical daily. Branch ibuprofen 3-0 Yes TAKE ONE [facility] ers 600 mg 1-21 (1) ity of tablet 00:00: TABLET(S) [place] 00 BY MOUTH Medical EVERY SIX Branch HOURS NEEDED FOR PAIN (SCALE 4-6). nystatin 2023-0 Yes [id number] Apply to Un man[facility] 100,000 1-21 area(s) 2 ity of unit/gram 00:00: (two) [place] cream 00 times Medical daily. Branch ibuprofen 3-0 Yes TAKE ONE [facility] ers 600 mg 1-21 (1) ity of tablet 00:00: TABLET(S) [place] 00 BY MOUTH Medical EVERY SIX Branch HOURS NEEDED FOR PAIN (SCALE 4-6). nystatin 2023-0 2023- No [id number] Apply to U nivers 100,000 1-21 03-16 area(s) 2 ity of unit/gram 00:00: 00:00 (two) [place] cream 00 :00 times Medical daily. Branch ibuprofen 2023-0 2023- No TAKE ONE Uni vers 600 mg -21 -16 (1) ity of tablet 00:00: 00:00 TABLET(S) [place] 00 :00 BY MOUTH Medical EVERY SIX Branch HOURS NEEDED FOR PAIN (SCALE 4-6). nystatin 2023-0 2023- No [id number] Apply to U nivers 100,000 1-21 03-16 area(s) 2 ity of unit/gram 00:00: 00:00 (two) [place] cream 00 :00 times Medical daily. Branch ibuprofen 2022- No TAKE ONE Uni vers 600 mg 05-0416 (1) ity of tablet 00:00: 00:00 TABLET(S) [place] 00 :00 BY MOUTH Medical EVERY SIX Branch HOURS NEEDED FOR PAIN (SCALE 4-6). fluconazole 2022- No [id number] 150mg Take 1 [facility] (DIFLUCAN) 05-04 tablet by ity of 150 mg 00:00: 05:59 mouth [place] tablet 00 :00 now for 1 Medical dose. Branch dicloxacill 2021-04- No [id number] 500mg Take 1 [facility] in 500 mg 04-23 capsule by ity of capsule 00:00: 05:59 mouth 4 [place] 00 :00 (four) Medical times [place] daily for 10 days. dicloxacill 2021-04- No [id number] 500mg Take 1 [facility] in 500 mg 04-23 capsule by ity of capsule 00:00: 05:59 mouth 4 [place] 00 :00 (four) Medical times [place] daily for 10 days. cephALEXin 2021-04- No [id number] 500mg Take 10 mL [facility] 250 mg/5 mL 04-23 by mouth 4 i ty of suspension 00:00: 05:59 (four) [place] 00 :00 times Medical daily for Branch 10 days. dicloxacill 2021-04- No [id number] 500mg Take 1 [facility] in 500 mg 04-23 capsule by ity of capsule 00:00: 05:59 mouth 4 [place] 00 :00 (four) Medical times [place] daily for 10 days. cephALEXin 2021-04- No [id number] 500mg Take 10 mL [facility] 250 mg/5 mL -10 by mouth 4 i ty of suspension 00:00: 05:59 (four) [place] 00 :00 times Medical daily for Branch 10 days. Prenat Vit 2021-04 Yes Take by [facility] ers Comb.10-Iro 2-14 mouth. ity of n-FA-DHA 17:03: [place] 65-1-250 mg 04 Medical combo pack Branch Prenat Vit 2021-04 Yes Take by [facility] ers Comb.10-Iro 2-14 mouth. ity of n-FA-DHA 17:03: [place] 65-1-250 mg 04 Medical combo pack Branch Prenat Vit 2021-04 Yes Take by [facility] ers Comb.10-Iro 2-14 mouth. ity of n-FA-DHA 17:03: [place] 65-1-250 mg 04 Medical combo pack Branch Prenat Vit 2021-04 Yes Take by [facility] ers Comb.10-Iro 2-14 mouth. ity of n-FA-DHA 17:03: [place] 65-1-250 mg 04 Medical combo pack Branch ibuprofen 2021-04 Yes [id number] 600mg Take 1 [facility] 600 mg 2-14 tablet by ity of tablet 00:00: mouth [place] 00 every 6 Medical (six) Branch hours as needed for Pain (scale 4-6). miconazole 2021-04 Yes [id number] 1{appli Insert 1 [facility] (MONISTAT 2-14 cator} Applicator it y of 7) 2 % 00:00: into [place] vaginal 00 vagina at Medical cream bedtime. Branch ibuprofen 2021-04 Yes [id number] 600mg Take 1 [facility] 600 mg 2-14 tablet by ity of tablet 00:00: mouth [place] 00 every 6 Medical (six) Branch hours as needed for Pain (scale 4-6). miconazole 2021-04 Yes [id number] 1{appli Insert 1 [facility] (MONISTAT 2-14 cator} Applicator it y of 7) 2 % 00:00: into [place] vaginal 00 vagina at Medical cream bedtime. Branch ibuprofen 2021-04 Yes [id number] 600mg Take 1 [facility] 600 mg 2-14 tablet by ity of tablet 00:00: mouth [place] 00 every 6 Medical (six) Branch hours as needed for Pain (scale 4-6). miconazole 2021-04 Yes [id number] 1{appli Insert 1 [facility] (MONISTAT 2-14 cator} Applicator it y of 7) 2 % 00:00: into [place] vaginal 00 vagina at Medical cream bedtime. Branch ibuprofen 2021-04 Yes [id number] 600mg Take 1 [facility] 600 mg 2-14 tablet by ity of tablet 00:00: mouth [place] 00 every 6 Medical (six) Branch hours as needed for Pain (scale 4-6). miconazole 2021-04 Yes [id number] 1{appli Insert 1 [facility] (MONISTAT 2-14 cator} Applicator it y of 7) 2 % 00:00: into [place] vaginal 00 vagina at Medical cream bedtime. Branch ibuprofen 2021-04- No [id number] 600mg Take 1 [facility] 600 mg 2-14 - tablet by ity of tablet 00:00: 00:00 mouth [place] 00 :00 every 6 Medical (six) Branch hours as needed for Pain (scale 4-6). miconazole 2021-04- No [id number] 1{appli Insert 1 [facility] (MONISTAT 2-14 05-04 cator} Applicator i ty of 7) 2 % 00:00: 00:00 into [place] vaginal 00 :00 vagina at Medical cream bedtime. Branch amoxicillin 2021-04- No [id number] 870mg Take 7.25 [facility] -pot 2-14 12-22 mL by ity of clavulanate 00:00: 05:59 mouth in [facility] 600-42.9 00 :00 the Medical mg/5 mL morning Branch suspension and 7.25 mL in the evening. Do all this for 7 days. amoxicillin 2021-04- No [id number] 1{tbl} Take 1 Univers -clavulanat 2-14 12-14 tablet by it y of e 00:00: 00:00 mouth in [place] (AUGMENTIN) 00 :00 the Medical 875-125 mg morning Branch per tablet and 1 tablet in the evening. Do all this for 7 days. fluconazole 2021-04- No [id number] 150mg Take 1 [facility] (DIFLUCAN) 2-14 12-14 tablet by ity of 150 mg 00:00: 00:00 mouth [place] tablet 00 :00 now for 1 Medical dose. Branch No known No No known Unive rs medications 9-24 medication it y of 16:00: [address] No known No No known Unive rs medications 9-24 medication it y of 16:00: [address] No known 2021-0 No No known Unive rs medications 8-17 medication it y of 12:52: [address] No known 2021-0 No No known Unive rs medications 8-15 medication it y of 15:47: [facility] No known 2021- No No known Unive rs medications 8-08 medication it y of 07:55: s [place] 10 [facility] sulfamethox 2020-0 2020- No [id number] 1{tbl} Take 1 Univers azole-trime 8-20 -31 tablet by it y of thoprim 00:00: 04:59 mouth 2 [place] (BACTRIM 00 :00 (two) Medical DS) 800-160 times Branch mg per daily for tablet 10 days. sulfamethox 2020-0 2020- No [id number] 1{tbl} Take 1 [facility] azole-trime 8-20 - tablet by it y of thoprim 00:00: 04:59 mouth 2 [place] (BACTRIM 00 :00 (two) Medical DS) 800-160 times Branch mg per daily for tablet 10 days. No known 2020-0 No Univers medications 7-21 ity of 17:05: [address] No known 2020-0 No Univers medications 7-21 ity of 17:05: [address] clindamycin 2019-0 2020- No [id number] 300mg Take 1 [facility] 300 mg 5-22 06-02 capsule by ity of capsule 00:00: 04:59 mouth 4 [place] 00 :00 ([facility]) Medical times [place] daily for 10 days. clindamycin 2020-0 2020- No [id number] 300mg Take 1 [facility] 300 mg 5-22 06-02 capsule by ity of capsule 00:00: 04:59 mouth 4 [place] 00 :00 ([facility]) Medical times [place] daily for 10 days. MELATONIN 2020-0 2020- No Take by Univ ers ORAL 4-15 04-15 mouth. ity of 19:40: 00:00 [place] 13 :00 [facility] Branch human 2020-0 Yes .5mL 0.5 mL, Univers papillomav 4-15 Intramuscu ity of vac,9-oneida(P 11:10: lar, [place] F) 15 ONCE-PRIOR Medical (GARDASIL 9 TO Branch (PF)) vial DISCHARGE, 0.5 mL 1 dose, Starting Fri07/28/19 at 0610, Until Discontinu ed, Routine, Give vaccine prior to discharge labetalol 2020-0 Yes [id number] 100mg Take 10 mL Univers (NORMODYNE) 4-15 by mouth 2 it y of 10 mg/mL 00:00: (two) [place] oral 00 times Medical suspension daily. Branch 2020-0 Yes [id number] 1{tbl} Take 1 [facility] vitamin 4-15 tablet by ity of w/FA tablet 00:00: mouth [place] 00 daily. Medical Branch docusate 2020-0 Yes [id number] 240mg Take 1 U nivers calcium 240 4-15 capsule by it y of mg capsule 00:00: mouth once [place] 00 daily as Medical needed for Branch Constipati on. ferrous 2020-0 Yes [id number] 325mg Take 1 Un manav sulfate 325 4-15 tablet by ity of mg (65 mg 00:00: mouth 2 [place] iron) 00 (two) Medical tablet times Branch daily. ibuprofen 2020-0 Yes [id number] 600mg Take 1 [facility] 600 mg 4-15 tablet by ity of tablet 00:00: mouth [place] 00 every 6 Medical (six) Branch hours as needed (Pain). Take with food or milk. labetalol 2020-0 Yes [id number] 100mg Take 10 mL [facility] (NORMODYNE) 4-15 by mouth 2 it y of 10 mg/mL 00:00: (two) [place] oral 00 times Medical suspension daily. Branch 2020-0 Yes [id number] 1{tbl} Take 1 [facility] vitamin 4-15 tablet by ity of w/FA tablet 00:00: mouth [place] 00 daily. Medical Branch docusate 2020-0 Yes [id number] 240mg Take 1 U nivers calcium 240 4-15 capsule by it y of mg capsule 00:00: mouth once [place] 00 daily as Medical needed for Branch Constipati on. ferrous 2020-0 Yes [id number] 325mg Take 1 Un manav sulfate 325 4-15 tablet by ity of mg (65 mg 00:00: mouth 2 [place] iron) 00 (two) Medical tablet times Branch daily. ibuprofen 2020-0 Yes [id number] 600mg Take 1 [facility] 600 mg 4-15 tablet by ity of tablet 00:00: mouth [place] 00 every 6 Medical (six) Branch hours as needed (Pain). Take with food or milk. labetalol 2020-0 Yes [id number] 100mg Take 10 mL [facility] (NORMODYNE) 4-15 by mouth 2 it y of 10 mg/mL 00:00: (two) [place] oral 00 times Medical suspension daily. Branch 2020-0 Yes [id number] 1{tbl} Take 1 [facility] vitamin 4-15 tablet by ity of w/FA tablet 00:00: mouth [place] 00 daily. Medical Branch docusate 2020-0 Yes [id number] 240mg Take 1 U nivers calcium 240 4-15 capsule by it y of mg capsule 00:00: mouth once [place] 00 daily as Medical needed for Branch Constipati on. ferrous 2020-0 Yes [id number] 325mg Take 1 Un manav sulfate 325 4-15 tablet by ity of mg (65 mg 00:00: mouth 2 [place] iron) 00 (two) Medical tablet times Branch daily. ibuprofen 2020-0 Yes [id number] 600mg Take 1 [facility] 600 mg 4-15 tablet by ity of tablet 00:00: mouth [place] 00 every 6 Medical (six) Branch hours as needed (Pain). Take with food or milk. labetalol 2020-0 Yes [id number] 100mg Take 10 mL [facility] (NORMODYNE) 4-15 by mouth 2 it y of 10 mg/mL 00:00: (two) [place] oral 00 times Medical suspension daily. Branch 2020-0 Yes [id number] 1{tbl} Take 1 [facility] vitamin 4-15 tablet by ity of w/FA tablet 00:00: mouth [place] 00 daily. Medical Branch docusate 2020-0 Yes [id number] 240mg Take 1 U nivers calcium 240 4-15 capsule by it y of mg capsule 00:00: mouth once [place] 00 daily as Medical needed for Branch Constipati on. ferrous 2020-0 Yes [id number] 325mg Take 1 Un manav sulfate 325 4-15 tablet by ity of mg (65 mg 00:00: mouth 2 [place] iron) 00 (two) Medical tablet times Branch daily. ibuprofen 2020-0 Yes [id number] 600mg Take 1 [facility] 600 mg 4-15 tablet by ity of tablet 00:00: mouth [place] 00 every 6 Medical (six) Branch hours as needed (Pain). Take with food or milk. labetalol 2020-0 Yes [id number] 100mg Take 10 mL [facility] (NORMODYNE) 4-15 by mouth 2 it y of 10 mg/mL 00:00: (two) [place] oral 00 times Medical suspension daily. Branch 2020-0 Yes [id number] 1{tbl} Take 1 [facility] vitamin 4-15 tablet by ity of w/FA tablet 00:00: mouth [place] 00 daily. Medical Branch docusate 2020-0 Yes [id number] 240mg Take 1 U nivers calcium 240 4-15 capsule by it y of mg capsule 00:00: mouth once [place] 00 daily as Medical needed for Branch Constipati on. ferrous 2020-0 Yes [id number] 325mg Take 1 Un manav sulfate 325 4-15 tablet by ity of mg (65 mg 00:00: mouth 2 [place] iron) 00 (two) Medical tablet times Branch daily. ibuprofen 2020-0 Yes [id number] 600mg Take 1 [facility] 600 mg 4-15 tablet by ity of tablet 00:00: mouth [place] 00 every 6 Medical (six) Branch hours as needed (Pain). Take with food or milk. labetalol 2020-0 Yes [id number] 100mg Take 10 mL [facility] (NORMODYNE) 4-15 by mouth 2 it y of 10 mg/mL 00:00: (two) [place] oral 00 times Medical suspension daily. Branch 2019-0 Yes [id number] 1{tbl} Take 1 [facility] vitamin 4-15 tablet by ity of w/FA tablet 00:00: mouth [place] 00 daily. Medical Branch docusate 2020-0 Yes [id number] 240mg Take 1 U nivers calcium 240 4-15 capsule by it y of mg capsule 00:00: mouth once [place] 00 daily as Medical needed for Branch Constipati on. ferrous 2020-0 Yes [id number] 325mg Take 1 Un manav sulfate 325 4-15 tablet by ity of mg (65 mg 00:00: mouth 2 [place] iron) 00 (two) Medical tablet times Branch daily. ibuprofen 2020-0 Yes [id number] 600mg Take 1 [facility] 600 mg 4-15 tablet by ity of tablet 00:00: mouth [place] 00 every 6 Medical (six) Branch hours as needed (Pain). Take with food or milk. labetalol 2020-0 Yes [id number] 100mg Take 10 mL [facility] (NORMODYNE) 4-15 by mouth 2 it y of 10 mg/mL 00:00: (two) [place] oral 00 times Medical suspension daily. Branch 2020-0 Yes [id number] 1{tbl} Take 1 [facility] vitamin 4-15 tablet by ity of w/FA tablet 00:00: mouth [place] 00 daily. Medical Branch docusate 2020-0 Yes [id number] 240mg Take 1 U nivers calcium 240 4-15 capsule by it y of mg capsule 00:00: mouth once [place] 00 daily as Medical needed for Branch Constipati on. ferrous 2020-0 Yes [id number] 325mg Take 1 Un manav sulfate 325 4-15 tablet by ity of mg (65 mg 00:00: mouth 2 [place] iron) 00 (two) Medical tablet times Branch daily. ibuprofen 2020-0 Yes [id number] 600mg Take 1 [facility] 600 mg 4-15 tablet by ity of tablet 00:00: mouth [place] 00 every 6 Medical (six) Branch hours as needed (Pain). Take with food or milk. labetalol 2020-0 Yes [id number] 100mg Take 10 mL [facility] (NORMODYNE) 4-15 by mouth 2 it y of 10 mg/mL 00:00: (two) [place] oral 00 times Medical suspension daily. Branch 2020-0 Yes [id number] 1{tbl} Take 1 [facility] vitamin 4-15 tablet by ity of w/FA tablet 00:00: mouth [place] 00 daily. Medical Branch docusate 2020-0 Yes [id number] 240mg Take 1 U nivers calcium 240 4-15 capsule by it y of mg capsule 00:00: mouth once [place] 00 daily as Medical needed for Branch Constipati on. ferrous 2020-0 Yes [id number] 325mg Take 1 Un manav sulfate 325 4-15 tablet by ity of mg (65 mg 00:00: mouth 2 [place] iron) 00 (two) Medical tablet times Branch daily. ibuprofen 2020-0 Yes [id number] 600mg Take 1 [facility] 600 mg 4-15 tablet by ity of tablet 00:00: mouth [place] 00 every 6 Medical (six) Branch hours as needed (Pain). Take with food or milk. labetalol 2020-0 Yes [id number] 100mg Take 10 mL Univers (NORMODYNE) 4-15 by mouth 2 it y of 10 mg/mL 00:00: (two) [place] oral 00 times Medical suspension daily. Branch 2020-0 Yes [id number] 1{tbl} Take 1 [facility] vitamin 4-15 tablet by ity of w/FA tablet 00:00: mouth [place] 00 daily. Medical Branch docusate 2020-0 Yes [id number] 240mg Take 1 U nivers calcium 240 4-15 capsule by it y of mg capsule 00:00: mouth once [place] 00 daily as Medical needed for Branch Constipati on. ferrous 2020-0 Yes [id number] 325mg Take 1 Un manav sulfate 325 4-15 tablet by ity of mg (65 mg 00:00: mouth 2 [place] iron) 00 (two) Medical tablet times Branch daily. ibuprofen 2020-0 Yes [id number] 600mg Take 1 [facility] 600 mg 4-15 tablet by ity of tablet 00:00: mouth [place] 00 every 6 Medical (six) Branch hours as needed (Pain). Take with food or milk. labetalol 2020-0 Yes [id number] 100mg Take 10 mL [facility] (NORMODYNE) 4-15 by mouth 2 it y of 10 mg/mL 00:00: (two) [place] oral 00 times Medical suspension daily. Branch 2020-0 Yes [id number] 1{tbl} Take 1 [facility] vitamin 4-15 tablet by ity of w/FA tablet 00:00: mouth [place] 00 daily. Medical Branch docusate 2020-0 Yes [id number] 240mg Take 1 U nivers calcium 240 4-15 capsule by it y of mg capsule 00:00: mouth once [place] 00 daily as Medical needed for Branch Constipati on. ferrous 2020-0 Yes [id number] 325mg Take 1 Un manav sulfate 325 4-15 tablet by ity of mg (65 mg 00:00: mouth 2 [place] iron) 00 (two) Medical tablet times Branch daily. ibuprofen 2020-0 Yes [id number] 600mg Take 1 [facility] 600 mg 4-15 tablet by ity of tablet 00:00: mouth [place] 00 every 6 Medical (six) Branch hours as needed (Pain). Take with food or milk. labetalol 2020-0 Yes [id number] 100mg Take 10 mL [facility] (NORMODYNE) 4-15 by mouth 2 it y of 10 mg/mL 00:00: (two) [place] oral 00 times Medical suspension daily. Branch 2020-0 Yes [id number] 1{tbl} Take 1 [facility] vitamin 4-15 tablet by ity of w/FA tablet 00:00: mouth [place] 00 daily. Medical Branch docusate 2020-0 Yes [id number] 240mg Take 1 U nivers calcium 240 4-15 capsule by it y of mg capsule 00:00: mouth once [place] 00 daily as Medical needed for Branch Constipati on. ferrous 2020-0 Yes [id number] 325mg Take 1 Un manav sulfate 325 4-15 tablet by ity of mg (65 mg 00:00: mouth 2 [place] iron) 00 (two) Medical tablet times Branch daily. ibuprofen 2020-0 Yes [id number] 600mg Take 1 [facility] 600 mg 4-15 tablet by ity of tablet 00:00: mouth [place] 00 every 6 Medical (six) Branch hours as needed (Pain). Take with food or milk. labetalol 2020-0 Yes [id number] 100mg Take 10 mL Univers (NORMODYNE) 4-15 by mouth 2 it y of 10 mg/mL 00:00: (two) [place] oral 00 times Medical suspension daily. Branch 2020-0 Yes [id number] 1{tbl} Take 1 [facility] vitamin 4-15 tablet by ity of w/FA tablet 00:00: mouth [place] 00 daily. Medical Branch docusate 2020-0 Yes [id number] 240mg Take 1 U nivers calcium 240 4-15 capsule by it y of mg capsule 00:00: mouth once [place] 00 daily as Medical needed for Branch Constipati on. ferrous 2020-0 Yes [id number] 325mg Take 1 Un manav sulfate 325 4-15 tablet by ity of mg (65 mg 00:00: mouth 2 [place] iron) 00 (two) Medical tablet times Branch daily. ibuprofen 2020-0 Yes [id number] 600mg Take 1 [facility] 600 mg 4-15 tablet by ity of tablet 00:00: mouth [place] 00 every 6 Medical (six) Branch hours as needed (Pain). Take with food or milk. labetalol 2020-0 2020- No [id number] 100mg Take 10 mL Univers (NORMODYNE) 4-15 06-08 by mouth 2 i ty of 10 mg/mL 00:00: 00:00 (two) [place] oral 00 :00 times Medical suspension daily. Branch 2019-0 2020- No [id number] 1{tbl} Take 1 [facility] vitamin 4-15 06-08 tablet by ity of w/FA tablet 00:00: 00:00 mouth [place] 00 :00 daily. Medical Branch docusate 2019-0 2020- No [id number] 240mg Take 1 [facility] calcium 240 4-15 06-08 capsule by i ty of mg capsule 00:00: 00:00 mouth once [place] 00 :00 daily as Medical needed for Branch Constipati on. ferrous 2020-0 2020- No [id number] 325mg Take 1 U nivers sulfate 325 4-15 06-08 tablet by it y of mg (65 mg 00:00: 00:00 mouth 2 [place] iron) 00 :00 (two) Medical tablet times Branch daily. ibuprofen 2019-0 2020- No [id number] 600mg Take 1 [facility] 600 mg 4-15 06-08 tablet by ity of tablet 00:00: 00:00 mouth [place] 00 :00 every 6 Medical (six) Branch hours as needed (Pain). Take with food or milk. labetalol 2019- 2020- No [id number] 100mg Take 10 mL Univers (NORMODYNE) 4-15 06-08 by mouth 2 i ty of 10 mg/mL 00:00: 00:00 (two) [place] oral 00 :00 times Medical suspension daily. Branch 2020- No [id number] 1{tbl} Take 1 [facility] vitamin 4-15 06-08 tablet by ity of w/FA tablet 00:00: 00:00 mouth [place] 00 :00 daily. Medical Branch docusate 2020- No [id number] 240mg Take 1 [facility] calcium 240 4-15 06-08 capsule by i ty of mg capsule 00:00: 00:00 mouth once [place] 00 :00 daily as Medical needed for Branch Constipati on. ferrous 2019- 2020- No [id number] 325mg Take 1 U nivers sulfate 325 4-15 06-08 tablet by it y of mg (65 mg 00:00: 00:00 mouth 2 [place] iron) 00 :00 (two) Medical tablet times Branch daily. ibuprofen 2019- 2020- No [id number] 600mg Take 1 [facility] 600 mg 4-15 06-08 tablet by ity of tablet 00:00: 00:00 mouth [place] 00 :00 every 6 Medical (six) Branch hours as needed (Pain). Take with food or milk. labetalol 2019- 2020- No [id number] 100mg Take 10 mL Univers (NORMODYNE) 4-15 06-08 by mouth 2 i ty of 10 mg/mL 00:00: 00:00 (two) [place] oral 00 :00 times Medical suspension daily. Branch 2019- 2020- No [id number] 1{tbl} Take 1 [facility] vitamin 4-15 06-08 tablet by ity of w/FA tablet 00:00: 00:00 mouth [place] 00 :00 daily. Medical Branch docusate 2019-0 2020- No [id number] 240mg Take 1 [facility] calcium 240 07-27 capsule by i ty of mg capsule 00:00: 00:00 mouth once [place] 00 :00 daily as Medical needed for Branch Constipati on. ferrous 2019-0 2020- No [id number] 325mg Take 1 U nivers sulfate 325 07-27- tablet by it y of mg (65 mg 00:00: 00:00 mouth 2 [place] iron) 00 :00 (two) Medical tablet times Branch daily. ibuprofen 2019-0 2020- No [id number] 600mg Take 1 [facility] 600 mg 07-27 tablet by ity of tablet 00:00: 00:00 mouth [place] 00 :00 every 6 Medical (six) Branch hours as needed (Pain). Take with food or milk. labetalol 2019-0 Yes 100mg 100 mg, Univ ers (NORMODYNE) 07-26 Oral, BID, it y of 10 mg/mL 16:30: First dose [facility]ifatah as oral [facility] suspension 07/27/19 at [facility] 100 mg 1130, Until Discontinu ed, Routine labetalol 2019-0 2020- No 20mg 20 mg, Unive rs (NORMODYNE) 07-26- Slow IV ity of injection 14:00: 12:59 Push, [place] 20 mg 00 :00 ONCE, 1 Medical dose, [facility] 07/27/19 at 0900, Routine hydralAZINE 2020- No 5mg 5 mg, Slow Univers (APRESOLINE 07-26 IV Push, ity of ) injection 12:00: 11:53 ONCE, 1 [place] 5 mg 00 :00 dose, [facility] Medical 07/27/19 at Branch 0700, Routine magnesium 2020- 2020- No 2g/h 2 g/hr (25 U nivers sulfate in 07-26-14 mL/hr), at it y of LR 40 09:15: 21:14 25 mL/hr, [place] gram/500 mL 00 :00 IV Medical IV Solution Infusion, [facility] CONTINUOUS , Starting [facility] 07/27/19 at 0415, [facility] 07[facility]19 at 1614, KARIS traMADol 2019-0 Yes 50mg 50 mg, Univers (ULTRAM) 50 4- Oral, ity of mg/10 mL 20:21: Q4HPRN, [...] 25 mg, IV U nivers MINE-0.9 % 07-25 Piggyback, ity of sod.chlr 20:03: Administer Abdifatah [...] ed, Routine, Nausea and Vomiting (N/V) docusate 2019- Yes 240mg 240 mg, Unive rs calcium [...] Med ical liquid 650 07/26/19 at [facility] mg 1215, Routine LR 1000 mL 2019- [...] until the liter is complete.& nbsp;&nbsp ;Notify Aeronautical Engineer if uterine resting tone exceeds 25 mmHg at any time during the amnioinfus ion. Obst etrics (NATALI) Aminoinfus ion Orders
butorphanol 2020- No 1mg 1 mg, IV U nivers (STADOL) 07-25 Push, ity of injection 1 05:00: 04:08 ONCE, 1 [place] mg 00 :00 dose, Mon Medical 07/26/19 at Branch 0000, Routine proMETHazin 2019- No 25mg 25 mg, IV Univers e 07-25 Piggyback, ity of (PHENERGAN) 03:14: 20:03 Q4HPRN, [place] 25 mg in 00 :32 Starting Medical NaCl 0.9% [facility] (NS) 50 mL 07/25/19 at IV 2214, piggyback Until 07/26/19 at 1503, Routine, Nausea and Vomiting (N/V) hydralAZINE 2019- No 10mg 10 mg, Uni vers (APRESOLINE 07-25 Intravenou i ty of ) injection 01:30: 00:07 s, ONCE [place] 10 mg 00 :00 NOW, 1 Medical dose, [place] 07/25/19 at 2030, Routine LR 1000 mL 2020- No 2mU/min 2-40 Uni vers + oxytocin 07-25 vinnie-unit it y of 20 units IV 01:15: 20:03 s/min [place] Solution 00 :32 (6-120 Medical mL/hr), IV Branch Infusion, CONTINUOUS , Starting 07/25/19 at 2014
In fuse IV through a controlled infusion [...] 1904, Until 07/26/19 at 1503, Routine labetalol 2019-0 2020- No 20mg 20 mg, Unive rs (NORMODYNE) 07-24 Slow IV ity of injection 23:17: 23:19 Push, [place] 20 mg 00 :00 ONCE, 1 Medical dose, [facility] 07/25/19 at 1830, KARIS D5W 0.45% 2019-0 [...] 07/26/19 at 0314, KARIS Blood 2020-0 Yes [id number] Use as Univer s Pressure 4-02 directed ity of Monitor 00:00: [place] (BLOOD 00 Medical PRESSURE Branch KIT) Kit Blood 2020-0 Yes [id number] Use as Univer s Pressure 4-02 directed ity of Monitor 00:00: [place] (BLOOD 00 Medical PRESSURE Branch KIT) Kit Blood 2020-0 Yes [id number] Use as Univer s Pressure 4-02 directed ity of Monitor 00:00: [place] (BLOOD 00 Medical PRESSURE Branch KIT) Kit Blood 2020-0 2020- No [id number] Use as Unive rs Pressure 4-02 04-15 directed ity of Monitor 00:00: 00:00 [place] (BLOOD 00 :00 Medical PRESSURE Branch KIT) Kit MELATONIN 2020-0 Yes Take by Unive rs ORAL 3-15 mouth. ity of 05:33: [address] MELATONIN 2020-0 Yes Take by Unive rs ORAL 3-15 mouth. ity of 05:33: [address] MELATONIN 2020-0 Yes Take by Unive rs ORAL 3-15 mouth. ity of 05:33: [address] MELATONIN 2020-0 Yes Take by Unive rs ORAL 3-15 mouth. ity of 05:33: [address] MELATONIN 2020-0 Yes Take by Unive rs ORAL 3-15 mouth. ity of 05:33: [address] MELATONIN 2020-0 Yes Take by Unive rs ORAL 3-15 mouth. ity of 05:33: [address] MELATONIN 2020-0 Yes Take by Unive rs ORAL 3-15 mouth. ity of 05:33: [address] cefTRIAXone 2020-0 2020- No 1000mg 1,000 mg, Univers (ROCEPHIN) 2-10 -10 IV ity of 1,000 mg in 03:30: 03:[place] NaCl 0.9% 00 :00 ONCE, 1 Medical (NS) 50 mL dose, [place] ch MINI-BAG 05/23/19 at 2130, 50 mL
Reas on for Anti-Infec tive: Documented Infection< br>Documen elisabeth Infection Site: Urine
D uration of Therapy: Other (see Comments) proMETHazin 2020-0 Yes [id number] 25mg Take 1 Univers e 25 mg 2-09 tablet by ity of tablet 00:00: mouth [place] 00 every 6 Medical (six) Branch hours as needed for Nausea and Vomiting (N/V). proMETHazin 2020-0 Yes [id number] 25mg Take 1 Univers e 25 mg 2-09 tablet by ity of tablet 00:00: mouth [place] 00 every 6 Medical (six) Branch hours as needed for Nausea and Vomiting (N/V). proMETHazin 2020-0 Yes [id number] 25mg Take 1 Univers e 25 mg 2-09 tablet by ity of tablet 00:00: mouth [place] 00 every 6 Medical (six) Branch hours as needed for Nausea and Vomiting (N/V). proMETHazin 2020-0 Yes [id number] 25mg Take 1 Univers e 25 mg 2-09 tablet by ity of tablet 00:00: mouth [place] 00 every 6 Medical (six) Branch hours as needed for Nausea and Vomiting (N/V). proMETHazin 2020-0 Yes [id number] 25mg Take 1 Univers e 25 mg 2-09 tablet by ity of tablet 00:00: mouth [place] 00 every 6 Medical (six) Branch hours as needed for Nausea and Vomiting (N/V). proMETHazin 2020-0 Yes [id number] 25mg Take 1 Univers e 25 mg 2-09 tablet by ity of tablet 00:00: mouth [place] 00 every 6 Medical (six) Branch hours as needed for Nausea and Vomiting (N/V). proMETHazin 2020-0 Yes [id number] 25mg Take 1 Univers e 25 mg 2-09 tablet by ity of tablet 00:00: mouth [place] 00 every 6 Medical (six) Branch hours as needed for Nausea and Vomiting (N/V). proMETHazin 2020-0 Yes [id number] 25mg Take 1 Univers e 25 mg 2-09 tablet by ity of tablet 00:00: mouth [place] 00 every 6 Medical (six) Branch hours as needed for Nausea and Vomiting (N/V). proMETHazin 2020-0 Yes [id number] 25mg Take 1 Univers e 25 mg 2-09 tablet by ity of tablet 00:00: mouth [place] 00 every 6 Medical (six) Branch hours as needed for Nausea and Vomiting (N/V). proMETHazin 2020-0 Yes [id number] 25mg Take 1 Univers e 25 mg 2-09 tablet by ity of tablet 00:00: mouth [place] 00 every 6 Medical (six) Branch hours as needed for Nausea and Vomiting (N/V). proMETHazin 2020-0 Yes [id number] 25mg Take 1 Univers e 25 mg 2-09 tablet by ity of tablet 00:00: mouth [place] 00 every 6 Medical (six) Branch hours as needed for Nausea and Vomiting (N/V). proMETHazin 2020-0 Yes [id number] 25mg Take 1 Univers e 25 mg 2-09 tablet by ity of tablet 00:00: mouth [place] 00 every 6 Medical (six) Branch hours as needed for Nausea and Vomiting (N/V). proMETHazin 2020-0 Yes [id number] 25mg Take 1 Univers e 25 mg 2-09 tablet by ity of tablet 00:00: mouth [place] 00 every 6 Medical (six) Branch hours as needed for Nausea and Vomiting (N/V). proMETHazin 2020-0 Yes [id number] 25mg Take 1 Univers e 25 mg 2-09 tablet by ity of tablet 00:00: mouth [place] 00 every 6 Medical (six) Branch hours as needed for Nausea and Vomiting (N/V). proMETHazin 2020-0 Yes [id number] 25mg Take 1 Univers e 25 mg 2-09 tablet by ity of tablet 00:00: mouth [place] 00 every 6 Medical (six) Branch hours as needed for Nausea and Vomiting (N/V). proMETHazin 2020-0 2020- No [id number] 25mg Take 1 Univers e 25 mg 2-09 04-12 tablet by ity of tablet 00:00: 00:00 mouth [place] 00 :00 every 6 Medical (six) Branch hours as needed for Nausea and Vomiting (N/V). promethazin 2020-0 2020- No [id number] 25mg Take 20 mL Univers e 6.25 mg/5 2-09 03-01 by mouth ity of mL solution 00:00: 05:59 every 6 [place] 00 :00 (six) Medical hours as Branch needed for Nausea and Vomiting (N/V) for up to 20 days. promethazin 2020-0 2020- No [id number] 25mg Take 20 mL Univers e 6.25 mg/5 2-09 03-01 by mouth ity of mL solution 00:00: 05:59 every 6 [place] 00 :00 (six) Medical hours as Branch needed for Nausea and Vomiting (N/V) for up to 20 days. promethazin 2020-0 2020- No [id number] 25mg Take 20 mL Univers e 6.25 mg/5 05-2301 by mouth ity of mL solution 00:00: 05:59 every 6 [place] 00 :00 (six) Medical hours as Branch needed for Nausea and Vomiting (N/V) for up to 20 days. promethazin 2020-0 2020- No [id number] 25mg Take 20 mL Univers e 6.25 mg/5 05-23 by mouth ity of mL solution 00:00: 05:59 every 6 [place] 00 :00 (six) Medical hours as Branch needed for Nausea and Vomiting (N/V) for up to 20 days. promethazin 2020-0 2020- No [id number] 25mg Take 20 mL Univers e 6.25 mg/5 05-23 by mouth ity of mL solution 00:00: 05:59 every 6 [place] 00 :00 (six) Medical hours as Branch needed for Nausea and Vomiting (N/V) for up to 20 days. cephALEXin 2020-0 2020- No [id number] 500mg Take 10 mL Univers 250 mg/5 mL 05-2320 by mouth 3 i ty of suspension 00:00: 05:59 (three) [place] as 00 :00 times Medical daily for Branch 10 days. cephALEXin 2020-0 2020- No [id number] 500mg Take 10 mL Univers 250 mg/5 mL 05-2320 by mouth 3 i ty of suspension 00:00: 05:59 (three) [place] 00 :00 times Medical daily for Branch 10 days. cephALEXin 2020-0 2020- No [id number] 500mg Take 10 mL Univers 250 mg/5 mL 05-23-20 by mouth 3 i ty of suspension 00:00: 05:59 (three) [place] 00 :00 times Medical daily for Branch 10 days. cephALEXin 2020-0 2020- No [id number] 500mg Take 10 mL Univers 250 mg/5 mL 05-23-20 by mouth 3 i ty of suspension 00:00: 05:59 (three) [place] 00 :00 times Medical daily for Branch 10 days. cephALEXin 2020-0 2020- No [id number] 500mg Take 10 mL Univers 250 mg/5 mL 05-23 by mouth 3 i ty of suspension 00:00: 05:59 (three) [place] 00 :00 times Medical daily for Branch 10 days. cephALEXin 2019- No [id number] 500mg Take 1 Univers (KEFLEX) 05-23 capsule by ity of 500 mg 00:00: 00:00 mouth 3 [place] capsule 00 :00 (three) Medical times Branch daily for 10 days. MELATONIN 2018-04 Yes Take by Unive rs ORAL 0-03 mouth. ity of 14:36: [address] MELATONIN 2018-04 Yes Take by Unive rs ORAL 0-03 mouth. ity of 14:36: [address] MELATONIN 2018-04 Yes Take by Unive rs ORAL 0-03 mouth. ity of 14:36: [address] MELATONIN 2018-04 Yes Take by Unive rs ORAL 0-03 mouth. ity of 14:36: [address] MELATONIN 2018-04 Yes Take by Unive rs ORAL 0-03 mouth. ity of 14:36: [address] MELATONIN 2018-04 Yes Take by Unive rs ORAL 0-03 mouth. ity of 14:36: [address] MELATONIN 2018-04 Yes Take by Unive rs ORAL 0-03 mouth. ity of 14:36: [address] MELATONIN 2018-04 Yes Take by Unive rs ORAL 0-03 mouth. ity of 14:36: [address] MELATONIN 2018-04 Yes Take by Unive rs ORAL 0-03 mouth. ity of 14:36: [address] 2018-04 Yes [id number] 1{packe Take 1 Univers vit 0-03 t} Packet by ity of 33-iron-fol 00:00: mouth [place] ic-dha 00 daily. [facility] 29 mg iron-1 mg -250 mg combo pack 2018-04 Yes [id number] 1{packe Take 1 Univers vit 0-03 t} Packet by ity of 33-iron-fol 00:00: mouth [place] ic-dha 00 daily. Medical ([facility] Branch + DHA) 29 mg iron-1 mg -250 mg combo pack 2018-04 Yes [id number] 1{packe Take 1 Univers vit 0-03 t} Packet by ity of 33-iron-fol 00:00: mouth [place] ic-dha 00 daily. Medical ([facility] Branch + DHA) 29 mg iron-1 mg -250 mg combo pack 2018-04 Yes [id number] 1{packe Take 1 Univers vit 0-03 t} Packet by ity of 33-iron-fol 00:00: mouth [place] ic-dha 00 daily. Medical ([facility] Branch + DHA) 29 mg iron-1 mg -250 mg combo pack 2018-04 Yes [id number] 1{packe Take 1 Univers vit 0-03 t} Packet by ity of 33-iron-fol 00:00: mouth [place] ic-dha 00 daily. Medical ([facility] Branch + DHA) 29 mg iron-1 mg -250 mg combo pack 2018-04 Yes [id number] 1{packe Take 1 Univers vit 0-03 t} Packet by ity of 33-iron-fol 00:00: mouth [place] ic-dha 00 daily. Medical ([facility] Branch + DHA) 29 mg iron-1 mg -250 mg combo pack 2018-04 Yes [id number] 1{packe Take 1 Univers vit 0-03 t} Packet by ity of 33-iron-fol 00:00: mouth [place] ic-dha 00 daily. Medical ([facility] Branch + DHA) 29 mg iron-1 mg -250 mg combo pack 2018-04 Yes [id number] 1{packe Take 1 Univers vit 0-03 t} Packet by ity of 33-iron-fol 00:00: mouth [place] ic-dha 00 daily. Medical ([facility] Branch + DHA) 29 mg iron-1 mg -250 mg combo pack 2018-04 Yes [id number] 1{packe Take 1 Univers vit 0-03 t} Packet by ity of 33-iron-fol 00:00: mouth [place] ic-dha 00 daily. Medical ([facility] Branch + DHA) 29 mg iron-1 mg -250 mg combo pack 2018-04 Yes [id number] 1{packe Take 1 Univers vit 0-03 t} Packet by ity of 33-iron-fol 00:00: mouth [place] ic-dha 00 daily. Medical ([facility] Branch + DHA) 29 mg iron-1 mg -250 mg combo pack 2018-04 Yes [id number] 1{packe Take 1 Univers vit 0-03 t} Packet by ity of 33-iron-fol 00:00: mouth [place] ic-dha 00 daily. Medical ([facility] Branch + DHA) 29 mg iron-1 mg -250 mg combo pack 2018-04 Yes [id number] 1{packe Take 1 Univers vit 0-03 t} Packet by ity of 33-iron-fol 00:00: mouth [place] ic-dha 00 daily. Medical ([facility] Branch + DHA) 29 mg iron-1 mg -250 mg combo pack 2018-04 Yes [id number] 1{packe Take 1 Univers vit 0-03 t} Packet by ity of 33-iron-fol 00:00: mouth [place] ic-dha 00 daily. Medical ([facility] Branch + DHA) 29 mg iron-1 mg -250 mg combo pack 2018-04 Yes [id number] 1{packe Take 1 Univers vit 0-03 t} Packet by ity of 33-iron-fol 00:00: mouth [place] ic-dha 00 daily. Medical ([facility] Branch + DHA) 29 mg iron-1 mg -250 mg combo pack 2018-04 Yes [id number] 1{packe Take 1 Univers vit 0-03 t} Packet by ity of 33-iron-fol 00:00: mouth [place] ic-dha 00 daily. Medical ([facility] Branch + DHA) 29 mg iron-1 mg -250 mg combo pack 2018-04 Yes [id number] 1{packe Take 1 Univers vit 0-03 t} Packet by ity of 33-iron-fol 00:00: mouth [place] ic-dha 00 daily. Medical ([facility] Branch + DHA) 29 mg iron-1 mg -250 mg combo pack 2018-04 2020- No [id number] 1{packe Take 1 Univers vit 0-03 04-15 t} Packet by ity of 33-iron-fol 00:00: 00:00 mouth [place] ic-dha 00 :00 daily. Medical ([facility] Branch + DHA) 29 mg iron-1 mg -250 mg combo pack mupirocin 2 2019- No [id number] Apply to Univers % ointment 11-26 area(s) 3 ity of 00:00: 04:59 (three) [place] 00 :00 times Medical daily for Branch 7 days. mupirocin 2 2019- No [id number] Apply to Univers % ointment 11-26 area(s) 3 ity of 00:00: 04:59 (three) [place] 00 :00 times Medical daily for Branch 7 days. mupirocin 2019- No [id number] Apply to Univers (BACTROBAN) 11-25 area(s) 3 it y of 2 % cream 00:00: 04:59 (three) [place] 00 :00 times Medical daily for Branch 7 days. mupirocin 2019- No [id number] Apply to Univers (BACTROBAN) 11-25 area(s) 3 it y of 2 % cream 00:00: 04:59 (three) [place] 00 :00 times Medical daily for Branch 7 days. mupirocin 2019- No [id number] Apply to Univers (BACTROBAN) 11-25 area(s) 3 it y of 2 % cream 00:00: 04:59 (three) [place] 00 :00 times Medical daily for Branch 7 days. mupirocin 2019- No [id number] Apply to Univers (BACTROBAN) 11-25 area(s) 3 it y of 2 % cream 00:00: 00:00 (three) [place] 00 :00 times Medical daily for Branch 7 days. azithromyci 2018- Yes Take 500 Un manav n 0-29 mg po ity of (ZITHROMAX) 00:00: today then [place] 200 mg/5 mL 00 250 mg po Med ical suspension qd on days [facility] #2-#5 azithromyci 2018- 2019- No Take 500 U nivers n 0-29 08-14 mg po ity of (ZITHROMAX) 00:00: 00:00 today then [place] 200 mg/5 mL 00 :00 250 mg po Med ical suspension qd on days [facility] #2-#5 azithromyci 2018- 2019- No Take 500 U nivers n 0-29 08-14 mg po ity of (ZITHROMAX) 00:00: 00:00 today then [place] 200 mg/5 mL 00 :00 250 mg po Med ical suspension qd on days [facility] #2-#5 No known No [facility] No known [facility] No [facility] metronidazo metronidazo No metronidaz [facility] le 0.75 [...] No Known No [facility] Medications Medications [facility] ent Clinics Immunizations Ordered Immunization Filled Immunization Date Status Commen ts Source Name Name [facility] 2021-12-31 Completed University of 00:00:00 [facility] TD 2021-12-31 Completed University of 00:00:00 [facility] TDAP 2021-12-31 Completed University of 00:00:00 [facility] TD 2021-12-31 Completed University of 00:00:00 [facility] TDAP 2021-12-31 Completed University of 00:00:00 [facility] TDAP 2021-12-31 Completed University of 00:00:00 [facility] TDAP 2021-12-31 Completed University of 00:00:00 [facility] TD 2021-12-31 Completed University of 00:00:00 [facility] TDAP 2021-12-31 Completed University of 00:00:00 [facility] TDAP 2021-12-31 Completed University of 00:00:00 [facility] TDAP 2021-12-31 Completed University of 00:00:00 [facility] TDAP 2021-12-31 Completed University of 00:00:00 [facility] TDAP 2021-12-31 Completed University of 00:00:00 [facility] TDAP 2021-12-31 Completed University of 00:00:00 [place] [facility] TDAP 2021-12-31 Completed University of 00:00:00 [place] [facility] TDAP 2021-12-31 Completed University of 00:00:00 [place] [facility] TDAP 2021-12-31 Completed University of 00:00:00 [place] [facility] TDAP 2021-12-31 Completed University of 00:00:00 [place] [facility] TDAP (ADACEL) [...] 2019-06-16 Completed Uni versity of 00:00:00 [place] [facility] Branch Influenza Virus 2019-01-14 Completed Universit y [...] Meningococcal 2017-09-11 Completed University of Polysaccharide 00:00:00 [place] Medi judy (groups A, C, Y and Branc h W-135) conjugate vaccine (MCV4P) Meningococcal B, OMV 2017-09-11 Completed Univ ersity of 00:00:00 [facility] Meningococcal 2017-09-11 Completed University of Polysaccharide 00:00:00 [place] Medi judy (groups A, C, Y and Branc h W-135) conjugate vaccine (MCV4P) Meningococcal B, OMV 2017-09-11 Completed Univ ersity of 00:00:00 [facility] Meningococcal 2017-09-11 Completed University of Polysaccharide 00:00:00 [place] Medi judy (groups A, C, Y and Branc h W-135) conjugate vaccine (MCV4P) Meningococcal 2017-09-11 Completed University of Polysaccharide 00:00:00 [place] Medi judy (groups A, C, Y and Branc h W-135) conjugate vaccine (MCV4P) Meningococcal B, OMV 2017-09-11 Completed Univ ersity of 00:00:00 [facility] Meningococcal B, OMV 2017-09-11 Completed Univ ersity of 00:00:00 [facility] Meningococcal 2017-09-11 Completed University of Polysaccharide 00:00:00 [place] Medi judy (groups A, C, Y and Branc h W-135) conjugate vaccine (MCV4P) Meningococcal B, OMV 2017-09-11 Completed Univ ersity of 00:00:00 [facility] Meningococcal 2017-09-11 Completed University of Polysaccharide 00:00:00 [place] Medi judy (groups A, C, Y and Branc h W-135) conjugate vaccine (MCV4P) Meningococcal B, OMV 2017-09-11 Completed Univ ersity of 00:00:00 [facility] Meningococcal 2017-09-11 Completed University of Polysaccharide 00:00:00 [place] Medi judy (groups A, C, Y and Branc h W-135) conjugate vaccine (MCV4P) Meningococcal B, OMV 2017-09-11 Completed Univ ersity of 00:00:00 [facility] Meningococcal 2017-09-11 Completed University of Polysaccharide 00:00:00 [place] Medi judy (groups A, C, Y and Branc h W-135) conjugate vaccine (MCV4P) Meningococcal B, OMV 2017-09-11 Completed Univ ersity of 00:00:00 [facility] Meningococcal 2017-09-11 Completed University of Polysaccharide 00:00:00 [place] Medi judy (groups A, C, Y and Branc h W-135) conjugate vaccine (MCV4P) Meningococcal B, OMV 2017-09-11 Completed Univ ersity of 00:00:00 [facility] Meningococcal 2017-09-11 Completed University of Polysaccharide 00:00:00 [place] Medi judy (groups A, C, Y and Branc h W-135) conjugate vaccine (MCV4P) Meningococcal B, OMV 2017-09-11 Completed Univ ersity of 00:00:00 [facility] Meningococcal 2017-09-11 Completed University of Polysaccharide 00:00:00 [place] Medi judy (groups A, C, Y and Branc h W-135) conjugate vaccine (MCV4P) Meningococcal B, OMV 2017-09-11 Completed Univ ersity of 00:00:00 [facility] Meningococcal 2017-09-11 Completed University of Polysaccharide 00:00:00 [place] Medi judy (groups A, C, Y and Branc h W-135) conjugate vaccine (MCV4P) Meningococcal B, OMV 2017-09-11 Completed Univ ersity of 00:00:00 [facility] Meningococcal 2017-09-11 Completed University of Polysaccharide 00:00:00 [place] Medi judy (groups A, C, Y and Branc h W-135) conjugate vaccine (MCV4P) Meningococcal B, OMV 2017-09-11 Completed Univ ersity of 00:00:00 [facility] Meningococcal 2017-09-11 Completed University of Polysaccharide 00:00:00 [place] Medi judy (groups A, C, Y and Branc h W-135) conjugate vaccine (MCV4P) Meningococcal B, OMV 2017-09-11 Completed Univ ersity of 00:00:00 [facility] Meningococcal 2017-09-11 Completed University of Polysaccharide 00:00:00 [place] Medi judy (groups A, C, Y and Branc h W-135) conjugate vaccine (MCV4P) Meningococcal B, OMV 2017-09-11 Completed Univ ersity of 00:00:00 [facility] Meningococcal 2017-09-11 Completed University of Polysaccharide 00:00:00 [place] Medi judy (groups A, C, Y and Branc h W-135) conjugate vaccine (MCV4P) Meningococcal B, OMV 2017-09-11 Completed Univ ersity of 00:00:00 [facility] Meningococcal 2017-09-11 Completed University of Polysaccharide 00:00:00 [place] Medi judy (groups A, C, Y and Branc h W-135) conjugate vaccine (MCV4P) Meningococcal B, OMV 2017-09-11 Completed Univ ersity of 00:00:00 [facility] Meningococcal 2017-09-11 Completed University of Polysaccharide 00:00:00 [place] Medi judy (groups A, C, Y and Branc h W-135) conjugate vaccine (MCV4P) Meningococcal B, OMV 2017-09-11 Completed Univ ersity of 00:00:00 [facility] Meningococcal 2017-09-11 Completed University of Polysaccharide 00:00:00 [place] Medi judy (groups A, C, Y and Branc h W-135) conjugate vaccine (MCV4P) Meningococcal B, OMV 2017-09-11 Completed Univ ersity of 00:00:00 [facility] Meningococcal 2017-09-11 Completed University of Polysaccharide 00:00:00 [place] Medi judy (groups A, C, Y and Branc h W-135) conjugate vaccine (MCV4P) Meningococcal B, OMV 2017-09-11 Completed Univ ersity of 00:00:00 [facility] Meningococcal 2017-09-11 Completed University of Polysaccharide 00:00:00 [place] Medi judy (groups A, C, Y and Branc h W-135) conjugate vaccine (MCV4P) Meningococcal B, OMV 2017-09-11 Completed Univ ersity of 00:00:00 [facility] Meningococcal 2017-09-11 Completed University of Polysaccharide 00:00:00 [place] Medi judy (groups A, C, Y and Branc h W-135) conjugate vaccine (MCV4P) Meningococcal B, OMV 2017-09-11 Completed Univ ersity of 00:00:00 [facility] Meningococcal 2017-09-11 Completed University of Polysaccharide 00:00:00 [place] Medi judy (groups A, C, Y and Branc h W-135) conjugate vaccine (MCV4P) Meningococcal B, OMV 2017-09-11 Completed Univ ersity of 00:00:00 [facility] Meningococcal 2017-09-11 Completed University of Polysaccharide 00:00:00 [place] Medi judy (groups A, C, Y and Branc h W-135) conjugate vaccine (MCV4P) Meningococcal B, OMV 2017-09-11 Completed Univ ersity of 00:00:00 [facility] Meningococcal 2017-09-11 Completed University of Polysaccharide 00:00:00 [place] Medi judy (groups A, C, Y and Branc h W-135) conjugate vaccine (MCV4P) Meningococcal B, OMV 2017-09-11 Completed Univ ersity of 00:00:00 [facility] Meningococcal 2017-09-11 Completed University of Polysaccharide 00:00:00 [place] Medi judy (groups A, C, Y and Branc h W-135) conjugate vaccine (MCV4P) Meningococcal B, OMV 2017-09-11 Completed Univ ersity of 00:00:00 [facility] Meningococcal 2017-09-11 Completed University of Polysaccharide 00:00:00 [place] Medi judy (groups A, C, Y and Branc h W-135) conjugate vaccine (MCV4P) Meningococcal B, OMV 2017-09-11 Completed Univ ersity of 00:00:00 [facility] Meningococcal 2017-09-11 Completed [facility] Polysaccharide 00:00:00 [place] [facility] (groups A, C, Y and Branc h W-135) conjugate vaccine (MCV4P) Meningococcal B, OMV 2017-09-11 Completed [facility] ersity of 00:00:00 [facility] Meningococcal 2017-09-11 Completed [facility] Polysaccharide 00:00:00 [place] [facility] (groups A, C, Y and Branc h W-135) conjugate vaccine (MCV4P) Meningococcal B, OMV 2017-09-11 Completed [facility] ersity of 00:00:00 [facility] Meningococcal 2017-09-11 Completed [facility] Polysaccharide 00:00:00 [place] [facility] (groups A, C, Y and Branc h W-135) conjugate vaccine (MCV4P) Meningococcal B, OMV 2017-09-11 Completed [facility] ersity of 00:00:00 [facility] Meningococcal 2017-09-11 Completed [facility] Polysaccharide 00:00:00 [place] [facility] (groups A, C, Y and Branc h W-135) conjugate vaccine (MCV4P) Meningococcal B, OMV 2017-09-11 Completed [facility] ersity of 00:00:00 [facility] Meningococcal 2017-09-11 Completed [facility] Polysaccharide 00:00:00 [place] [facility] (groups A, C, Y and Branc h W-135) conjugate vaccine (MCV4P) Meningococcal B, OMV 2017-09-11 Completed [facility] ersity of 00:00:00 [facility] Meningococcal 2017-09-11 Completed [facility] Polysaccharide 00:00:00 [place] [facility] (groups A, C, Y and Branc h W-135) conjugate vaccine (MCV4P) Meningococcal B, OMV 2017-09-11 Completed [facility] ersity of 00:00:00 [facility] Meningococcal 2017-09-11 Completed [facility] Polysaccharide 00:00:00 [place] [facility] (groups A, C, Y and Branc h W-135) conjugate vaccine (MCV4P) Meningococcal B, OMV 2017-09-11 Completed [facility] ersity of 00:00:00 [facility] Meningococcal 2017-09-11 Completed [facility] Polysaccharide 00:00:00 [place] [facility] (groups A, C, Y and Branc h W-135) conjugate vaccine (MCV4P) Meningococcal B, OMV 2017-09-11 Completed [facility] ersity of 00:00:00 [facility] Meningococcal 2017-09-11 Completed [facility] Polysaccharide 00:00:00 [place] [facility] (groups A, C, Y and Branc h W-135) conjugate vaccine (MCV4P) Meningococcal B, OMV 2017-09-11 Completed [facility] ersity of 00:00:00 [facility] Meningococcal 2017-09-11 Completed [facility] Polysaccharide 00:00:00 [place] [facility] (groups A, C, Y and Branc h W-135) conjugate vaccine (MCV4P) Meningococcal B, OMV 2017-09-11 Completed [facility] ersity of 00:00:00 [facility] Meningococcal 2017-09-11 Completed [facility] Polysaccharide 00:00:00 [place] [facility] (groups A, C, Y and Branc h W-135) conjugate vaccine (MCV4P) Meningococcal B, OMV 2017-09-11 Completed [facility] ersity of 00:00:00 [facility] Meningococcal 2017-09-11 Completed [facility] Polysaccharide 00:00:00 [place] [facility] (groups A, C, Y and Branc h W-135) conjugate vaccine (MCV4P) Meningococcal B, OMV 2017-09-11 Completed [facility] ersity of 00:00:00 [facility] Meningococcal 2017-09-11 Completed [facility] Polysaccharide 00:00:00 [place] [facility] (groups A, C, Y and Branc h W-135) conjugate vaccine (MCV4P) Meningococcal B, OMV 2017-09-11 Completed [facility] ersity of 00:00:00 [facility] Meningococcal 2017-09-11 Completed [facility] Polysaccharide 00:00:00 [place] [facility] (groups A, C, Y and Branc h W-135) conjugate vaccine (MCV4P) Meningococcal B, OMV 2017-09-11 Completed [facility] ersity of 00:00:00 [facility] Meningococcal 2017-09-11 Completed [facility] Polysaccharide 00:00:00 [place] [facility] (groups A, C, Y and Branc h W-135) conjugate vaccine (MCV4P) Meningococcal B, OMV 2017-09-11 Completed Univ ersity of 00:00:00 [facility] Meningococcal 2017-09-11 Completed [facility] Polysaccharide 00:00:00 [place] [facility] (groups A, C, Y and Branc h W-135) conjugate vaccine (MCV4P) Meningococcal B, OMV 2017-09-11 Completed [facility] ersity of 00:00:00 [facility] Meningococcal 2017-09-11 Completed [facility] Polysaccharide 00:00:00 [place] [facility] (groups A, C, Y and Branc h W-135) conjugate vaccine (MCV4P) Meningococcal B, OMV 2017-09-11 Completed [facility] ersity of 00:00:00 [facility] Meningococcal 2017-09-11 Completed [facility] Polysaccharide 00:00:00 [place] [facility] (groups A, C, Y and Branc h W-135) conjugate vaccine (MCV4P) Meningococcal B, OMV 2017-09-11 Completed [facility] ersity of 00:00:00 [facility] Meningococcal 2017-09-11 Completed [facility] Polysaccharide 00:00:00 [place] [facility] (groups A, C, Y and Branc h W-135) conjugate vaccine (MCV4P) Meningococcal B, OMV 2017-09-11 Completed [facility] ersity of 00:00:00 [facility] Meningococcal 2017-09-11 Completed [facility] Polysaccharide 00:00:00 [place] [facility] (groups A, C, Y and Branc h W-135) conjugate vaccine (MCV4P) Meningococcal B, OMV 2017-09-11 Completed [facility] ersity of 00:00:00 [facility] Meningococcal 2017-09-11 Completed [facility] Polysaccharide 00:00:00 [place] [facility] (groups A, C, Y and Branc h W-135) conjugate vaccine (MCV4P) Meningococcal B, OMV 2017-09-11 Completed [facility] ersity of 00:00:00 [facility] Meningococcal 2017-09-11 Completed [facility] Polysaccharide 00:00:00 [place] [facility] (groups A, C, Y and Branc h W-135) conjugate vaccine (MCV4P) Meningococcal B, OMV 2017-09-11 Completed [facility] ersity of 00:00:00 [facility] Meningococcal 2017-09-11 Completed [facility] Polysaccharide 00:00:00 [place] [facility] (groups A, C, Y and Branc h W-135) conjugate vaccine (MCV4P) Meningococcal B, OMV 2017-09-11 Completed Univ ersity of 00:00:00 [facility] Meningococcal 2017-09-11 Completed [facility] Polysaccharide 00:00:00 [place] [facility] (groups A, C, Y and Branc h W-135) conjugate vaccine (MCV4P) Meningococcal B, OMV 2017-09-11 Completed [facility] ersity of 00:00:00 [facility] Meningococcal 2017-09-11 Completed [facility] Polysaccharide 00:00:00 [place] [facility] (groups A, C, Y and Branc h W-135) conjugate vaccine (MCV4P) Meningococcal B, OMV 2017-09-11 Completed [facility] ersity of 00:00:00 [facility] Meningococcal 2017-09-11 Completed [facility] Polysaccharide 00:00:00 [place] [facility] (groups A, C, Y and Branc h W-135) conjugate vaccine (MCV4P) Meningococcal B, OMV 2017-09-11 Completed [facility] ersity of 00:00:00 [facility] Meningococcal 2017-09-11 Completed [facility] Polysaccharide 00:00:00 [place] [facility] (groups A, C, Y and Branc h W-135) conjugate vaccine (MCV4P) Meningococcal B, OMV 2017-09-11 Completed [facility] ersity of 00:00:00 [facility] Meningococcal 2017-09-11 Completed [facility] Polysaccharide 00:00:00 [place] [facility] (groups A, C, Y and Branc h W-135) conjugate vaccine (MCV4P) Meningococcal B, OMV 2017-09-11 Completed [facility] ersity of 00:00:00 [facility] Meningococcal 2017-09-11 Completed [facility] Polysaccharide 00:00:00 [place] [facility] (groups A, C, Y and Branc h W-135) conjugate vaccine (MCV4P) Meningococcal B, OMV 2017-09-11 Completed [facility] ersity of 00:00:00 [facility] Meningococcal 2017-09-11 Completed [facility] Polysaccharide 00:00:00 [place] [facility] (groups A, C, Y and Branc h W-135) conjugate vaccine (MCV4P) Meningococcal 2017-09-11 Completed [facility] Polysaccharide 00:00:00 [place] [facility] (groups A, C, Y and Branc h W-135) conjugate vaccine (MCV4P) Meningococcal B, OMV 2017-09-11 Completed [facility] ersity of 00:00:00 [facility] Meningococcal B, OMV 2017-09-11 Completed [facility] ersity of 00:00:00 [facility] Meningococcal 2017-09-11 Completed [facility] Polysaccharide 00:00:00 [place] [facility] (groups A, C, Y and Branc h W-135) conjugate vaccine (MCV4P) Meningococcal B, OMV 2017-09-11 Completed [facility] ersity of 00:00:00 [facility] Meningococcal 2017-09-11 Completed [facility] Polysaccharide 00:00:00 [place] [facility] (groups A, C, Y and Branc h W-135) conjugate vaccine (MCV4P) Meningococcal B, OMV 2017-09-11 Completed [facility] ersity of 00:00:00 [facility] Meningococcal 2017-09-11 Completed [facility] Polysaccharide 00:00:00 [place] [facility] (groups A, C, Y and Branc h W-135) conjugate vaccine (MCV4P) Meningococcal B, OMV 2017-09-11 Completed [facility]ity of 00:00:00 [facility] Meningococcal 2017-09-11 Completed [facility] Polysaccharide 00:00:00 [place] [facility] (groups A, C, Y and Branc h W-135) conjugate vaccine (MCV4P) Meningococcal B, OMV 2017-09-11 Completed [facility]ity of 00:00:00 [facility] Meningococcal 2017-09-11 Completed [facility] Polysaccharide 00:00:00 [place] [facility] (groups A, C, Y and Branc h W-135) conjugate vaccine (MCV4P) Meningococcal B, OMV 2017-09-11 Completed [facility]ity of 00:00:00 [facility] Meningococcal 2017-09-11 Completed [facility] Polysaccharide 00:00:00 [place] [facility] (groups A, C, Y and Branc h W-135) conjugate vaccine (MCV4P) Meningococcal B, OMV 2017-09-11 Completed [facility]ity of 00:00:00 [facility] Meningococcal 2017-09-11 Completed [facility] Polysaccharide 00:00:00 [place] [facility] (groups A, C, Y and Branc h W-135) conjugate vaccine (MCV4P) Meningococcal B, OMV 2017-09-11 Completed [facility]ity of 00:00:00 [facility] Meningococcal 2017-09-11 Completed [facility] Polysaccharide 00:00:00 [place] [facility] (groups A, C, Y and Branc h W-135) conjugate vaccine (MCV4P) Meningococcal B, OMV 2017-09-11 Completed [facility] of 00:00:00 [facility] Meningococcal 2017-09-11 Completed [facility] Polysaccharide 00:00:00 [place] [facility] (groups A, C, Y and Branc h W-135) conjugate vaccine (MCV4P) Meningococcal B, OMV 2017-09-11 Completed [facility] of 00:00:00 [facility] Meningococcal 2017-09-11 Completed [facility] Polysaccharide 00:00:00 [place] [facility] (groups A, C, Y and Branc h W-135) conjugate vaccine (MCV4P) Meningococcal B, OMV 2017-09-11 Completed [facility]ity of 00:00:00 [facility] Meningococcal 2017-09-11 Completed [facility] Polysaccharide 00:00:00 [place] [facility] (groups A, C, Y and Branc h W-135) conjugate vaccine (MCV4P) Meningococcal B, OMV 2017-09-11 Completed [facility]ity of 00:00:00 [facility] Meningococcal 2017-09-11 Completed [facility] Polysaccharide 00:00:00 [place] [facility] (groups A, C, Y and Branc h W-135) conjugate vaccine (MCV4P) Meningococcal B, OMV 2017-09-11 Completed [facility]ity of 00:00:00 [facility] Meningococcal 2017-09-11 Completed [facility] Polysaccharide 00:00:00 [place] [facility] (groups A, C, Y and Branc h W-135) conjugate vaccine (MCV4P) Meningococcal B, OMV 2017-09-11 Completed [facility]ity of 00:00:00 [facility] Meningococcal 2017-09-11 Completed [facility] Polysaccharide 00:00:00 [place] [facility] (groups A, C, Y and Branc h W-135) conjugate vaccine (MCV4P) Meningococcal B, OMV 2017-09-11 Completed [facility]ity of 00:00:00 [facility] Meningococcal 2017-09-11 Completed [facility] Polysaccharide 00:00:00 [place] [facility] (groups A, C, Y and Branc h W-135) conjugate vaccine (MCV4P) Meningococcal B, OMV 2017-09-11 Completed [facility]ity of 00:00:00 [facility] Meningococcal 2017-09-11 Completed [facility] Polysaccharide 00:00:00 [place] [facility] (groups A, C, Y and Branc h W-135) conjugate vaccine (MCV4P) Meningococcal B, OMV 2017-09-11 Completed [facility]ity [facility] 00:00:00 [facility] Meningococcal 2017-09-11 Completed [facility] Polysaccharide 00:00:00 [place] [facility] (groups A, C, Y and Branc h W-135) conjugate vaccine (MCV4P) Meningococcal B, OMV 2017-09-11 Completed [facility] 00:00:00 [facility] Meningococcal 2017-09-11 Completed [facility] Polysaccharide 00:00:00 [place] [facility] (groups A, C, Y and Branc h W-135) conjugate vaccine (MCV4P) Meningococcal B, OMV 2017-09-11 Completed Univ ersity of 00:00:00 [facility] Meningococcal Vaccine 2012-12-08 Completed Uni versity of 00:00:00 [facility] Tdap 2012-12-08 Completed [facility] 00:00:00 [facility] Tdap 2012-12-08 Completed [facility] 00:00:00 [facility] Meningococcal Vaccine 2012-12-08 Completed Uni versity of 00:00:00 [facility] Tdap 2012-12-08 Completed [facility] 00:00:00 [facility] Meningococcal Vaccine 2012-12-08 Completed Uni versity of 00:00:00 [facility] Tdap 2012-12-08 Completed [facility] 00:00:00 [facility] Meningococcal Vaccine 2012-12-08 Completed Uni versity of 00:00:00 [facility] Tdap 2012-12-08 Completed [facility] 00:00:00 [facility] Meningococcal Vaccine 2012-12-08 Completed Uni versity of 00:00:00 [facility] Tdap 2012-12-08 Completed [facility] 00:00:00 [facility] Meningococcal Vaccine 2012-12-08 Completed Uni versity of 00:00:00 [facility] Tdap 2012-12-08 Completed [facility] 00:00:00 [facility] Meningococcal Vaccine 2012-12-08 Completed Uni versity of 00:00:00 [facility] Tdap 2012-12-08 Completed [facility] 00:00:00 [facility] Meningococcal Vaccine 2012-12-08 Completed [facility] vers[facility] 00:00:00 [facility] Tdap 2012-12-08 Completed [facility] 00:00:00 [facility] Meningococcal Vaccine 2012-12-08 Completed [facility] versity [facility] 00:00:00 [facility] Meningococcal Vaccine 2012-12-08 Completed [facility] versity of 00:00:00 [facility] Tdap 2012-12-08 Completed [facility] 00:00:00 [facility] Meningococcal Vaccine 2012-12-08 Completed [facility] versity of 00:00:00 [facility] Tdap 2012-12-08 Completed [facility] 00:00:00 [facility] Tdap 2012-12-08 Completed [facility] 00:00:00 [facility] Meningococcal Vaccine 2012-12-08 Completed Uni versity of 00:00:00 [facility] Tdap 2012-12-08 Completed [facility] 00:00:00 [facility] Meningococcal Vaccine 2012-12-08 Completed [facility] versity of 00:00:00 [facility] Tdap 2012-12-08 Completed [facility] 00:00:00 [facility] Meningococcal Vaccine 2012-12-08 Completed Uni versity of 00:00:00 [facility] Tdap 2012-12-08 Completed [facility] 00:00:00 [facility] Meningococcal Vaccine 2012-12-08 Completed [facility] versity of 00:00:00 [facility] Tdap 2012-12-08 Completed [facility] 00:00:00 [facility] Meningococcal Vaccine 2012-12-08 Completed [facility] versity of 00:00:00 [facility] TDAP 2012-12-08 Completed [facility] 00:00:00 [facility] Meningococcal Vaccine 2012-12-08 Completed [facility] versity of 00:00:00 [facility] TDAP 2012-12-08 Completed [facility] 00:00:00 [facility] Meningococcal Vaccine 2012-12-08 Completed [facility] versity of 00:00:00 [facility] Meningococcal Vaccine 2012-12-08 Completed [facility] versity of 00:00:00 [facility] TDAP 2012-12-08 Completed [facility] 00:00:00 [facility] Meningococcal Vaccine 2012-12-08 Completed [facility] versity of 00:00:00 [facility] TDAP 2012-12-08 Completed [facility] 00:00:00 [facility] Tdap 2012-12-08 Completed [facility] 00:00:00 [facility] Meningococcal Vaccine 2012-12-08 Completed Uni versity of 00:00:00 [facility] TDAP 2012-12-08 Completed [facility] 00:00:00 [facility] Meningococcal Vaccine 2012-12-08 Completed [facility] versity of 00:00:00 [facility] TDAP 2012-12-08 Completed [facility] 00:00:00 [facility] Meningococcal Vaccine 2012-12-08 Completed Uni versity of 00:00:00 [facility] TDAP 2012-12-08 Completed [facility] 00:00:00 [facility] Meningococcal Vaccine 2012-12-08 Completed Uni versity of 00:00:00 [facility] TDAP 2012-12-08 Completed [facility] 00:00:00 [facility] Meningococcal Vaccine 2012-12-08 Completed Uni versity of 00:00:00 [facility] TDAP 2012-12-08 Completed [facility] 00:00:00 [facility] Meningococcal Vaccine 2012-12-08 Completed [facility] versity of 00:00:00 [facility] TDAP 2012-12-08 Completed [facility] 00:00:00 [facility] Meningococcal Vaccine 2012-12-08 Completed Uni versity of 00:00:00 [facility] TDAP 2012-12-08 Completed [facility] 00:00:00 [facility] Meningococcal Vaccine 2012-12-08 Completed Uni versity of 00:00:00 [facility] TDAP 2012-12-08 Completed [facility] 00:00:00 [facility] Meningococcal Vaccine 2012-12-08 Completed [facility] versity of 00:00:00 [facility] TDAP 2012-12-08 Completed [facility] 00:00:00 [facility] Meningococcal Vaccine 2012-12-08 Completed [facility] versity of 00:00:00 [facility] Meningococcal Vaccine 2012-12-08 Completed [facility] versity of 00:00:00 [facility] TDAP 2012-12-08 Completed [facility] 00:00:00 [facility] Tdap 2012-12-08 Completed [facility] 00:00:00 [facility] Meningococcal Vaccine 2012-12-08 Completed Uni versity of 00:00:00 [facility] TDAP 2012-12-08 Completed [facility] 00:00:00 [facility] Meningococcal Vaccine 2012-12-08 Completed [facility] versity of 00:00:00 [facility] Meningococcal Vaccine 2012-12-08 Completed [facility] versity of 00:00:00 [facility] TDAP 2012-12-08 Completed [facility] 00:00:00 [facility] Meningococcal Vaccine 2012-12-08 Completed [facility] versity of 00:00:00 [facility] TDAP 2012-12-08 Completed [facility] 00:00:00 [facility] Meningococcal Vaccine 2012-12-08 Completed Uni versity of 00:00:00 [facility] TDAP 2012-12-08 Completed [facility] 00:00:00 [facility] Meningococcal Vaccine 2012-12-08 Completed Uni versity of 00:00:00 [facility] TDAP 2012-12-08 Completed [facility] 00:00:00 [facility] Meningococcal Vaccine 2012-12-08 Completed [facility] versity of 00:00:00 [facility] TDAP 2012-12-08 Completed [facility] 00:00:00 [facility] Meningococcal Vaccine 2012-12-08 Completed Uni versity of 00:00:00 [facility] TDAP 2012-12-08 Completed [facility] 00:00:00 [facility] Meningococcal Vaccine 2012-12-08 Completed Uni versity of 00:00:00 [facility] Meningococcal Vaccine 2012-12-08 Completed Uni versity of 00:00:00 [facility] TDAP 2012-12-08 Completed [facility] 00:00:00 [facility] Meningococcal Vaccine 2012-12-08 Completed [facility] versity of 00:00:00 [facility] TDAP 2012-12-08 Completed [facility] 00:00:00 [facility] Tdap 2012-12-08 Completed [facility] 00:00:00 [facility] Meningococcal 2012-12-08 Completed [facility] Polysaccharide 00:00:00 [place] [facility] (groups A, C, Y and Branc h W-135) conjugate vaccine (MCV4P) Meningococcal Vaccine 2012-12-08 Completed [facility] 00:00:00 [facility] TDAP 2012-12-08 Completed [facility] 00:00:00 [facility] Meningococcal 2012-12-08 Completed [facility] Polysaccharide 00:00:00 [place] [facility] (groups A, C, Y and Branc h W-135) conjugate vaccine (MCV4P) Meningococcal Vaccine 2012-12-08 Completed [facility] vers[facility] 00:00:00 [facility] TDAP 2012-12-08 Completed [facility] 00:00:00 [facility] Meningococcal 2012-12-08 Completed [facility] Polysaccharide 00:00:00 [place] [facility] (groups A, C, Y and Branc h W-135) conjugate vaccine (MCV4P) Meningococcal Vaccine 2012-12-08 Completed [facility] 00:00:00 [facility] TDAP 2012-12-08 Completed [facility] 00:00:00 [facility] Meningococcal 2012-12-08 Completed [facility] Polysaccharide 00:00:00 [place] [facility] (groups A, C, Y and Branc h W-135) conjugate vaccine (MCV4P) Meningococcal Vaccine 2012-12-08 Completed [facility] vers[facility] 00:00:00 [facility] TDAP 2012-12-08 Completed [facility] 00:00:00 [facility] Meningococcal 2012-12-08 Completed [facility] Polysaccharide 00:00:00 [place] [facility] (groups A, C, Y and Branc h W-135) conjugate vaccine (MCV4P) Meningococcal Vaccine 2012-12-08 Completed [facility] vers[facility] 00:00:00 [facility] TDAP 2012-12-08 Completed [facility] 00:00:00 [facility] Meningococcal 2012-12-08 Completed [facility] Polysaccharide 00:00:00 [place] [facility] (groups A, C, Y and Branc h W-135) conjugate vaccine (MCV4P) Meningococcal Vaccine 2012-12-08 Completed [facility] vers[facility] 00:00:00 [facility] TDAP 2012-12-08 Completed [facility] 00:00:00 [facility] Meningococcal 2012-12-08 Completed [facility] Polysaccharide 00:00:00 [place] [facility] (groups A, C, Y and Branc h W-135) conjugate vaccine (MCV4P) Meningococcal Vaccine 2012-12-08 Completed [facility] vers[facility] 00:00:00 [facility] Tdap 2012-12-08 Completed [facility] 00:00:00 [facility] TDAP 2012-12-08 Completed [facility] 00:00:00 [facility] Meningococcal 2012-12-08 Completed [facility] Polysaccharide 00:00:00 [place] [facility] (groups A, C, Y and Branc h W-135) conjugate vaccine (MCV4P) Meningococcal Vaccine 2012-12-08 Completed [facility] vers[facility] 00:00:00 [facility] Meningococcal Vaccine 2012-12-08 Completed [facility] versity [facility] 00:00:00 [facility] TDAP 2012-12-08 Completed [facility] 00:00:00 [facility] Meningococcal 2012-12-08 Completed [facility] Polysaccharide 00:00:00 [place] [facility] (groups A, C, Y and Branc h W-135) conjugate vaccine (MCV4P) Meningococcal Vaccine 2012-12-08 Completed [facility] vers[facility] 00:00:00 [facility] Tdap 2012-12-08 Completed [facility] 00:00:00 [facility] TDAP 2012-12-08 Completed [facility] 00:00:00 [facility] Meningococcal 2012-12-08 Completed [facility] Polysaccharide 00:00:00 [place] [facility] (groups A, C, Y and Branc h W-135) conjugate vaccine (MCV4P) Meningococcal Vaccine 2012-12-08 Completed [facility] vers[facility] 00:00:00 [facility] TDAP 2012-12-08 Completed [facility] 00:00:00 [facility] Meningococcal 2012-12-08 Completed [facility] Polysaccharide 00:00:00 [place] [facility] (groups A, C, Y and Branc h W-135) conjugate vaccine (MCV4P) Meningococcal Vaccine 2012-12-08 Completed Uni versity of 00:00:00 [facility] TDAP 2012-12-08 Completed [facility] 00:00:00 [facility] Meningococcal 2012-12-08 Completed [facility] Polysaccharide 00:00:00 [facility] (groups A, C, Y and Branc h W-135) conjugate vaccine (MCV4P) Meningococcal Vaccine 2012-12-08 Completed Uni versity of 00:00:00 [facility] TDAP 2012-12-08 Completed [facility] 00:00:00 [facility] Meningococcal 2012-12-08 Completed [facility] Polysaccharide 00:00:00 [facility] (groups A, C, Y and Branc h W-135) conjugate vaccine (MCV4P) Meningococcal Vaccine 2012-12-08 Completed Uni versity of 00:00:00 [facility] TDAP 2012-12-08 Completed [facility] 00:00:00 [facility] Meningococcal 2012-12-08 Completed [facility] Polysaccharide 00:00:00 [place] [facility] (groups A, C, Y and Branc h W-135) conjugate vaccine (MCV4P) Meningococcal Vaccine 2012-12-08 Completed Uni versity of 00:00:00 [facility] TDAP 2012-12-08 Completed [facility] 00:00:00 [facility] Meningococcal 2012-12-08 Completed [facility] Polysaccharide 00:00:00 [facility] (groups A, C, Y and Branc h W-135) conjugate vaccine (MCV4P) Meningococcal Vaccine 2012-12-08 Completed Uni versity of 00:00:00 [facility] Meningococcal Vaccine 2012-12-08 Completed Uni versity of 00:00:00 [facility] TDAP 2012-12-08 Completed [facility] 00:00:00 [facility] Meningococcal 2012-12-08 Completed [facility] Polysaccharide 00:00:00 [place] [facility] (groups A, C, Y and Branc h W-135) conjugate vaccine (MCV4P) Meningococcal Vaccine 2012-12-08 Completed Uni versity of 00:00:00 [facility] TDAP 2012-12-08 Completed [facility] 00:00:00 [facility] Tdap 2012-12-08 Completed [facility] 00:00:00 [facility] Meningococcal 2012-12-08 Completed [facility] Polysaccharide 00:00:00 [facility] (groups A, C, Y and Branc h W-135) conjugate vaccine (MCV4P) Meningococcal Vaccine 2012-12-08 Completed Uni versity of 00:00:00 [facility] TDAP 2012-12-08 Completed [facility] 00:00:00 [facility] Meningococcal 2012-12-08 Completed [facility] Polysaccharide 00:00:00 [facility] (groups A, C, Y and Branc h W-135) conjugate vaccine (MCV4P) Meningococcal Vaccine 2012-12-08 Completed Uni versity of 00:00:00 [facility] Tdap 2012-12-08 Completed [facility] 00:00:00 [facility] Meningococcal Vaccine 2012-12-08 Completed Uni versity of 00:00:00 [facility] Tdap 2012-12-08 Completed [facility] 00:00:00 [facility] Meningococcal Vaccine 2012-12-08 Completed Uni versity of 00:00:00 [facility] Tdap 2012-12-08 Completed [facility] 00:00:00 [facility] Meningococcal Vaccine 2012-12-08 Completed Uni versity of 00:00:00 [facility] Tdap 2012-12-08 Completed [facility] 00:00:00 [facility] Meningococcal Vaccine 2012-12-08 Completed Uni versity of 00:00:00 [facility] Meningococcal Vaccine 2012-12-08 Completed Uni versity of 00:00:00 [facility] Tdap 2012-12-08 Completed [facility] of 00:00:00 [facility] Meningococcal Vaccine 2012-12-08 Completed Uni versity of 00:00:00 [facility] Tdap 2012-12-08 Completed [facility] of 00:00:00 [facility] Tdap 2012-12-08 Completed [facility] of 00:00:00 [facility] Meningococcal Vaccine 2012-12-08 Completed Uni versity of 00:00:00 [facility] Tdap 2012-12-08 Completed [facility] of 00:00:00 [facility] Meningococcal Vaccine 2012-12-08 Completed Uni versity of 00:00:00 [facility] Tdap 2012-12-08 Completed [facility] 00:00:00 [facility] Meningococcal Vaccine 2012-12-08 Completed Uni versity of 00:00:00 [facility] Tdap 2012-12-08 Completed [facility] of 00:00:00 [facility] Meningococcal Vaccine 2012-12-08 Completed Uni versity of 00:00:00 [facility] Tdap 2012-12-08 Completed [facility] of 00:00:00 [facility] Meningococcal Vaccine 2012-12-08 Completed Uni versity of 00:00:00 [facility] Tdap 2012-12-08 Completed [facility] of 00:00:00 [facility] Meningococcal Vaccine 2012-12-08 Completed Uni versity of 00:00:00 [facility] Tdap 2012-12-08 Completed [facility] of 00:00:00 [facility] Meningococcal Vaccine 2012-12-08 Completed Uni versity of 00:00:00 [facility] Tdap 2012-12-08 Completed [facility] of 00:00:00 [facility] Meningococcal Vaccine 2012-12-08 Completed Uni versity of 00:00:00 [facility] Varicella 2012-03-11 Completed University of (varivax)(chicken 00:00:00 [...] y of Vaccine Quad IM 6-35 00:00:00 [facility] Influenza Virus 2010-02-28 Completed Universit y of Vaccine Quad IM 6-35 00:00:00 [facility] Influenza Virus 2010-02-28 Completed Universit y of Vaccine Quad IM 6-35 00:00:00 [facility] Influenza Virus 2010-02-28 Completed Universit y of Vaccine Quad IM 6-35 00:00:00 [facility] Influenza Virus 2010-02-28 Completed Universit y of Vaccine Quad IM 6-35 00:00:00 [facility] Influenza Virus 2010-02-28 Completed Universit y of Vaccine Quad IM 6-35 00:00:00 [facility] Influenza Virus 2010-02-28 Completed Universit y of Vaccine Quad IM 6-35 00:00:00 [facility] Influenza Virus 2010-02-28 Completed Universit y of Vaccine Quad IM 6-35 00:00:00 [facility] Influenza Virus 2010-02-28 Completed [facility]it y of Vaccine Quad IM 6-35 00:00:00 [facility] Influenza Virus 2010-02-28 Completed Universit y of Vaccine Quad IM 6-35 00:00:00 [facility] Influenza Virus 2010-02-28 Completed Universit y of Vaccine Quad IM 6-35 00:00:00 [facility] Influenza Virus 2010-02-28 Completed Universit y of Vaccine Quad IM 6-35 00:00:00 [facility] Influenza Virus 2010-02-28 Completed Universit y of Vaccine Quad IM 6-35 00:00:00 [facility] Influenza Virus 2010-02-28 Completed Universit y of Vaccine Quad IM 6-35 00:00:00 [facility] Influenza Virus 2010-02-28 Completed [facility]it y of Vaccine Quad IM 6-35 00:00:00 [facility] Influenza Virus 2010-02-28 Completed [facility]it y of Vaccine Quad IM 6-35 00:00:00 [facility] Influenza Virus 2010-02-28 Completed Universit y of Vaccine Quad IM 6-35 00:00:00 [facility] Influenza Virus 2010-02-28 Completed Universit y of Vaccine Quad IM 6-35 00:00:00 [facility] Influenza Virus 2010-02-28 Completed [facility]it y of Vaccine Quad IM 6-35 00:00:00 [facility] Influenza Virus 2010-02-28 Completed [facility]it y of Vaccine Quad IM 6-35 00:00:00 [facility] Influenza Virus 2010-02-28 Completed [facility]it y of Vaccine Quad IM 6-35 00:00:00 [facility] Influenza Virus 2010-02-28 Completed [facility]it y of Vaccine Quad IM 6-35 00:00:00 [facility] Influenza Virus 2010-02-28 Completed [facility]it y of Vaccine Quad IM 6-35 00:00:00 [facility] Influenza Virus 2010-02-28 Completed [facility]it y of Vaccine Quad IM 6-35 00:00:00 [facility] Influenza Virus 2010-02-28 Completed [facility]it y of Vaccine Quad IM 6-35 00:00:00 [facility] Influenza Virus 2010-02-28 Completed [facility]it y of Vaccine Quad IM 6-35 00:00:00 [facility] Influenza Virus 2010-02-28 Completed [facility]it y of Vaccine Quad IM 6-35 00:00:00 [facility] Influenza Virus 2010-02-28 Completed [facility]it y of Vaccine Quad IM 6-35 00:00:00 [facility] Influenza Virus 2010-02-28 Completed [facility]it y of Vaccine Quad IM 6-35 00:00:00 [facility] Influenza Virus 2010-02-28 Completed Universit y of Vaccine Quad IM 6-35 00:00:00 [facility] Influenza Virus 2010-02-28 Completed [facility]it y of Vaccine Quad IM 6-35 00:00:00 [facility] Influenza Virus 2010-02-28 Completed Universit y of Vaccine Quad IM 6-35 00:00:00 [facility] Influenza Virus 2010-02-28 Completed [facility]it y of Vaccine Quad IM 6-35 00:00:00 [facility] Influenza Virus 2010-02-28 Completed Universit y of Vaccine Quad IM 6-35 00:00:00 [facility] Influenza Virus 2010-02-28 Completed Universit y of Vaccine Quad IM 6-35 00:00:00 [facility] Influenza Virus 2010-02-28 Completed [facility]it y of Vaccine Quad IM 6-35 00:00:00 [facility] Influenza Virus 2010-02-28 Completed Universit y of Vaccine Quad IM 6-35 00:00:00 [facility] Influenza Virus 2010-02-28 Completed Universit y of Vaccine Quad IM 6-35 00:00:00 [facility] Influenza Virus 2010-02-28 Completed [facility]it y of Vaccine Quad IM 6-35 00:00:00 [facility] Influenza Virus 2010-02-28 Completed [facility]it y of Vaccine Quad IM 6-35 00:00:00 [facility] Influenza Virus 2010-02-28 Completed Universit y of Vaccine Quad IM 6-35 00:00:00 [facility] Influenza Virus 2010-02-28 Completed Universit y of Vaccine (3+ yrs) 00:00:00 [facility] Influenza Virus 2010-02-28 Completed Universit y of Vaccine Quad IM 6-35 00:00:00 [facility] Influenza Virus 2010-02-28 Completed Universit y of Vaccine Quad IM 6-35 00:00:00 [facility] Influenza Virus 2010-02-28 Completed Universit y of Vaccine (3+ yrs) 00:00:00 [facility] Influenza Virus 2010-02-28 Completed [facility]it y of Vaccine Quad IM 6-35 00:00:00 [facility] Influenza Virus 2010-02-28 Completed Universit y of Vaccine (3+ yrs) 00:00:00 [facility] Influenza Virus 2010-02-28 Completed Universit y of Vaccine Quad IM 6-35 00:00:00 [facility] Influenza Virus 2010-02-28 Completed Universit y of Vaccine (3+ yrs) 00:00:00 [facility] Influenza Virus 2010-02-28 Completed Universit y of Vaccine Quad IM 6-35 00:00:00 [facility] Influenza Virus 2010-02-28 Completed Universit y of Vaccine (3+ yrs) 00:00:00 [facility] Influenza Virus 2010-02-28 Completed [facility]it y of Vaccine Quad IM 6-35 00:00:00 [facility] Influenza Virus 2010-02-28 Completed Universit y of Vaccine (3+ yrs) 00:00:00 [facility] Influenza Virus 2010-02-28 Completed [facility]it y of Vaccine Quad IM 6-35 00:00:00 [facility] Influenza Virus 2010-02-28 Completed Universit y of Vaccine (3+ yrs) 00:00:00 [facility] Influenza Virus 2010-02-28 Completed Universit y of Vaccine Quad IM 6-35 00:00:00 [facility] Influenza Virus 2010-02-28 Completed Universit y of Vaccine (3+ yrs) 00:00:00 [facility] Influenza Virus 2010-02-28 Completed [facility]it y of Vaccine Quad IM 6-35 00:00:00 [facility] Influenza Virus 2010-02-28 Completed Universit y of Vaccine (3+ yrs) 00:00:00 [facility] Influenza Virus 2010-02-28 Completed Universit y of Vaccine Quad IM 6-35 00:00:00 [facility] Influenza Virus 2010-02-28 Completed Universit y of Vaccine (3+ yrs) 00:00:00 [facility] Influenza Virus 2010-02-28 Completed Universit y of Vaccine Quad IM 6-35 00:00:00 [facility] Influenza Virus 2010-02-28 Completed [facility]it y of Vaccine Quad IM 6-35 00:00:00 [facility] Influenza Virus 2010-02-28 Completed Universit y of Vaccine (3+ yrs) 00:00:00 [facility] Influenza Virus 2010-02-28 Completed [facility]it y of Vaccine Quad IM 6-35 00:00:00 [facility] Influenza Virus 2010-02-28 Completed Universit y of Vaccine (3+ yrs) 00:00:00 [facility] Influenza Virus 2010-02-28 Completed [facility]it y of Vaccine Quad IM 6-35 00:00:00 [facility] Influenza Virus 2010-02-28 Completed [facility]it y of Vaccine Quad IM 6-35 00:00:00 [facility] Influenza Virus 2010-02-28 Completed Universit y of Vaccine (3+ yrs) 00:00:00 [facility] Influenza Virus 2010-02-28 Completed [facility]it y of Vaccine Quad IM 6-35 00:00:00 [facility] Influenza Virus 2010-02-28 Completed Universit y of Vaccine (3+ yrs) 00:00:00 [facility] Influenza Virus 2010-02-28 Completed [facility]it y of Vaccine Quad IM 6-35 00:00:00 [facility] Influenza Virus 2010-02-28 Completed [facility]it y of Vaccine (3+ yrs) 00:00:00 [facility] Influenza Virus 2010-02-28 Completed [facility]it y of Vaccine Quad IM 6-35 00:00:00 [facility] Influenza Virus 2010-02-28 Completed [facility]it y of Vaccine (3+ yrs) 00:00:00 [facility] Influenza Virus 2010-02-28 Completed [facility]it y of Vaccine Quad IM 6-35 00:00:00 [facility] Influenza Virus 2010-02-28 Completed Universit y of Vaccine (3+ yrs) 00:00:00 [facility] Influenza Virus 2010-02-28 Completed [facility]it y of Vaccine Quad IM 6-35 00:00:00 [facility] Influenza Virus 2010-02-28 Completed [facility]it y of Vaccine Quad IM 6-35 00:00:00 [facility] Influenza Virus 2010-02-28 Completed Universit y of Vaccine (3+ yrs) 00:00:00 [facility] Influenza Virus 2010-02-28 Completed [facility]it y of Vaccine Quad IM 6-35 00:00:00 [facility] Influenza Virus 2010-02-28 Completed [facility]it y of Vaccine Quad IM 6-35 00:00:00 [facility] Influenza Virus 2010-02-28 Completed [facility]it y of Vaccine Quad IM 6-35 00:00:00 [facility] Influenza Virus 2010-02-28 Completed [facility]it y of Vaccine Quad IM 6-35 00:00:00 [facility] Influenza Virus 2010-02-28 Completed [facility]it y of Vaccine Quad IM 6-35 00:00:00 [facility] Influenza Virus 2010-02-28 Completed [facility]it y of Vaccine Quad IM 6-35 00:00:00 [facility] Influenza Virus 2010-02-28 Completed [facility]it y of Vaccine Quad IM 6-35 00:00:00 [facility] Influenza Virus 2010-02-28 Completed [facility]it y of Vaccine Quad IM 6-35 00:00:00 [facility] Influenza Virus 2010-02-28 Completed [facility]it y of Vaccine Quad IM 6-35 00:00:00 [facility] Influenza Virus 2010-02-28 Completed [facility]it y of Vaccine Quad IM 6-35 00:00:00 [facility] Influenza Virus 2010-02-28 Completed [facility]it y of Vaccine Quad IM 6-35 00:00:00 [facility] Influenza Virus 2010-02-28 Completed [facility]it y of Vaccine Quad IM 6-35 00:00:00 [facility] Influenza Virus 2010-02-28 Completed [facility]it y of Vaccine Quad IM 6-35 00:00:00 [facility] Influenza Virus 2010-02-28 Completed Universit y of Vaccine Quad IM 6-35 00:00:00 [facility] HEPA,NOS 2006-01-08 Completed [facility] 00:00:00 [facility] HEPATITIS A 2006-01-08 Completed [facility] of 00:00:00 [facility] HEPA,NOS 2006-01-08 Completed [facility] of 00:00:00 [facility] HEPATITIS A 2006-01-08 Completed [facility] of 00:00:00 [facility] HEPA,NOS 2006-01-08 Completed [facility] of 00:00:00 [facility] HEPATITIS A 2006-01-08 Completed [facility] of 00:00:00 [facility] HEPA,NOS 2006-01-08 Completed [facility] of 00:00:00 [facility] HEPATITIS A 2006-01-08 Completed [facility] of 00:00:00 [facility] HEPA,NOS 2006-01-08 Completed [facility] of 00:00:00 [facility] HEPATITIS A 2006-01-08 Completed [facility] of 00:00:00 [facility] HEPA,NOS 2006-01-08 Completed [facility] of 00:00:00 [facility] HEPATITIS A 2006-01-08 Completed [facility] of 00:00:00 [facility] HEPA,NOS 2006-01-08 Completed [facility] of 00:00:00 [facility] HEPATITIS A 2006-01-08 Completed [facility] of 00:00:00 [facility] HEPA,NOS 2006-01-08 Completed [facility] of 00:00:00 [facility] HEPATITIS A 2006-01-08 Completed [facility] of 00:00:00 [facility] HEPA,NOS 2006-01-08 Completed [facility] of 00:00:00 [facility] HEPATITIS A 2006-01-08 Completed [facility] of 00:00:00 [facility] HEPA,NOS 2006-01-08 Completed [facility] of 00:00:00 [facility] HEPATITIS A 2006-01-08 Completed [facility] of 00:00:00 [facility] HEPA,NOS 2006-01-08 Completed [facility] of 00:00:00 [facility] HEPATITIS A 2006-01-08 Completed [facility] of 00:00:00 [facility] HEPA,NOS 2006-01-08 Completed [facility] of 00:00:00 [facility] HEPATITIS A 2006-01-08 Completed [facility] of 00:00:00 [facility] HEPA,NOS 2006-01-08 Completed [facility] of 00:00:00 [facility] HEPATITIS A 2006-01-08 Completed [facility] of 00:00:00 [facility] HEPA,NOS 2006-01-08 Completed [facility] of 00:00:00 [facility] HEPATITIS A 2006-01-08 Completed [facility] of 00:00:00 [facility] HEPA,NOS 2006-01-08 Completed [facility] of 00:00:00 [facility] HEPATITIS A 2006-01-08 Completed [facility] of 00:00:00 [facility] HEPA,NOS 2006-01-08 Completed [facility] of 00:00:00 [facility] HEPATITIS A 2006-01-08 Completed [facility] of 00:00:00 [facility] HEPA,NOS 2006-01-08 Completed [facility] of 00:00:00 [facility] HEPATITIS A 2006-01-08 Completed [facility] of 00:00:00 [facility] HEPA,NOS 2006-01-08 Completed [facility] of 00:00:00 [facility] HEPATITIS A 2006-01-08 Completed [facility] of 00:00:00 [facility] MMR 2005-01-10 Completed [facility] of 00:00:00 [facility] Pneumococcal 13 2005-01-10 Completed Universit y of Conjugate, PCV13 00:00:00 [facility] (Prevnar 13) Branch Polio (IPV/OPV) 2005-01-10 Completed Universit y of 00:00:00 [facility] Polio (IPV/OPV) 2005-01-10 Completed Universit y of 00:00:00 [facility] DTAP 2005-01-10 Completed University of 00:00:00 [facility] HIB 4 Dose Schedule 2005-01-10 Completed Unive rsity of 00:00:00 [facility] MMR 2005-01-10 Completed University of 00:00:00 [facility] Pneumococcal 13 2005-01-10 Completed Universit y of Conjugate, PCV13 00:00:00 [facility]ical (Prevnar 13) Branch Polio (IPV/OPV) 2005-01-10 Completed Universit y of 00:00:00 [facility] DTAP 2005-01-10 Completed University of 00:00:00 [facility] HIB 4 Dose Schedule 2005-01-10 Completed Unive rsity of 00:00:00 [facility] MMR 2005-01-10 Completed University of 00:00:00 [facility] Pneumococcal 13 2005-01-10 Completed Universit y of Conjugate, PCV13 00:00:00 [facility] (Prevnar 13) Branch Polio (IPV/OPV) 2005-01-10 Completed Universit y of 00:00:00 [facility] DTAP 2005-01-10 Completed University of 00:00:00 [facility] HIB 4 Dose Schedule 2005-01-10 Completed Unive rsity of 00:00:00 [facility] MMR 2005-01-10 Completed [facility] of 00:00:00 [facility] Pneumococcal 13 2005-01-10 Completed Universit y of Conjugate, PCV13 00:00:00 [facility] (Prevnar 13) Branch Polio (IPV/OPV) 2005-01-10 Completed Universit y of 00:00:00 [facility] DTAP 2005-01-10 Completed [facility] of 00:00:00 [facility] HIB 4 Dose Schedule 2005-01-10 Completed Unive rsity of 00:00:00 [facility] MMR 2005-01-10 Completed [facility] of 00:00:00 [facility] Pneumococcal 13 2005-01-10 Completed Universit y of Conjugate, PCV13 00:00:00 [facility] (Prevnar 13) Branch Polio (IPV/OPV) 2005-01-10 Completed Universit y of 00:00:00 [facility] DTAP 2005-01-10 Completed [facility] of 00:00:00 [facility] HIB 4 Dose Schedule 2005-01-10 Completed Unive rsity of 00:00:00 [facility] DTAP 2005-01-10 Completed [facility] of 00:00:00 [facility] MMR 2005-01-10 Completed [facility] of 00:00:00 [facility] Pneumococcal 13 2005-01-10 Completed Universit y of Conjugate, PCV13 00:00:00 [facility] (Prevnar 13) Branch Polio (IPV/OPV) 2005-01-10 Completed Universit y of 00:00:00 [facility] DTAP 2005-01-10 Completed University of 00:00:00 [facility] DTAP 2005-01-10 Completed [facility] of 00:00:00 [facility] HIB 4 Dose Schedule 2005-01-10 Completed Unive rsity of 00:00:00 [facility] HIB 4 Dose Schedule 2005-01-10 Completed Unive rsity of 00:00:00 [facility] MMR 2005-01-10 Completed [facility] 00:00:00 [facility] [place] Pneumococcal 13 2005-01-10 Completed [facility] Conjugate, PCV13 00:00:00 [facility] dical (Prevnar 13) Branch Polio (IPV/OPV) 2005-01-10 Completed [facility] 00:00:00 [facility] DTAP 2005-01-10 Completed University of 00:00:00 [facility] HIB 4 Dose Schedule 2005-01-10 Completed Unive rsity of 00:00:00 [facility] MMR 2005-01-10 Completed University of 00:00:00 [facility] Pneumococcal 13 2005-01-10 Completed [facility] of Conjugate, PCV13 00:00:00 [facility] dical (Prevnar 13) Branch Polio (IPV/OPV) 2005-01-10 Completed [facility] of 00:00:00 [facility] DTAP 2005-01-10 Completed University of 00:00:00 [facility] HIB 4 Dose Schedule 2005-01-10 Completed Unive rsity of 00:00:00 [facility] MMR 2005-01-10 Completed University of 00:00:00 [facility] Pneumococcal 13 2005-01-10 Completed [facility] of Conjugate, PCV13 00:00:00 [facility] dical (Prevnar 13) Branch Polio (IPV/OPV) 2005-01-10 Completed [facility] of 00:00:00 [facility] MMR 2005-01-10 Completed University of 00:00:00 [facility] Pneumococcal 13 2005-01-10 Completed [facility] of Conjugate, PCV13 00:00:00 [place] [facility] (Prevnar 13) Branch DTAP 2005-01-10 Completed [facility] of 00:00:00 [facility] HIB 4 Dose Schedule 2005-01-10 Completed Unive rsity of 00:00:00 [facility] MMR 2005-01-10 Completed University of 00:00:00 [facility] Pneumococcal 13 2005-01-10 Completed [facility] of Conjugate, PCV13 00:00:00 [facility] dical (Prevnar 13) Branch Polio (IPV/OPV) 2005-01-10 Completed [facility] of 00:00:00 [facility] Polio (IPV/OPV) 2005-01-10 Completed [facility] of 00:00:00 [facility] DTAP 2005-01-10 Completed University of 00:00:00 [facility] HIB 4 Dose Schedule 2005-01-10 Completed Unive rsity of 00:00:00 [facility] MMR 2005-01-10 Completed [facility] of 00:00:00 [facility] Pneumococcal 13 2005-01-10 Completed [facility] of Conjugate, PCV13 00:00:00 [facility] dical (Prevnar 13) Branch Polio (IPV/OPV) 2005-01-10 Completed [facility] of 00:00:00 [facility] DTAP 2005-01-10 Completed University of 00:00:00 [facility] HIB 4 Dose Schedule 2005-01-10 Completed Unive rsity of 00:00:00 [facility] MMR 2005-01-10 Completed [facility] of 00:00:00 [facility] Pneumococcal 13 2005-01-10 Completed [facility] of Conjugate, PCV13 00:00:00 [facility] dical (Prevnar 13) Branch Polio (IPV/OPV) 2005-01-10 Completed [facility] of 00:00:00 [facility] DTAP 2005-01-10 Completed [facility] of 00:00:00 [facility] HIB 4 Dose Schedule 2005-01-10 Completed Unive rsity of 00:00:00 [facility] MMR 2005-01-10 Completed [facility] of 00:00:00 [facility] Pneumococcal 13 2005-01-10 Completed [facility] of Conjugate, PCV13 00:00:00 [place] [facility] (Prevnar 13) Branch Polio (IPV/OPV) 2005-01-10 Completed [facility] of 00:00:00 [facility] DTAP 2005-01-10 Completed University of 00:00:00 [facility] DTAP 2005-01-10 Completed [facility] of 00:00:00 [facility] HIB 4 Dose Schedule 2005-01-10 Completed Unive rsity of 00:00:00 [facility] MMR 2005-01-10 Completed [facility] of 00:00:00 [facility] Pneumococcal 13 2005-01-10 Completed [facility] of Conjugate, PCV13 00:00:00 [place] [facility] (Prevnar 13) Branch Polio (IPV/OPV) 2005-01-10 Completed [facility] of 00:00:00 [facility] DTAP 2005-01-10 Completed University of 00:00:00 [facility] HIB 4 Dose Schedule 2005-01-10 Completed [facility]ive rsity of 00:00:00 [facility] HIB 4 Dose Schedule 2005-01-10 Completed Unive rsity of 00:00:00 [facility] MMR 2005-01-10 Completed University of 00:00:00 [facility] Pneumococcal 13 2005-01-10 Completed [facility] of Conjugate, PCV13 00:00:00 [facility] dical (Prevnar 13) Branch Polio (IPV/OPV) 2005-01-10 Completed [facility] of 00:00:00 [facility] DTAP 2005-01-10 Completed University of 00:00:00 [facility] HIB 4 Dose Schedule 2005-01-10 Completed Unive rsity of 00:00:00 [facility] MMR 2005-01-10 Completed [facility] of 00:00:00 [facility] Pneumococcal 13 2005-01-10 Completed [facility] of Conjugate, PCV13 00:00:00 [facility] dical (Prevnar 13) Branch Polio (IPV/OPV) 2005-01-10 Completed [facility] of 00:00:00 [facility] HIB 4 Dose Schedule 2005-01-10 Completed Unive rsity of 00:00:00 [facility] DTAP 2005-01-10 Completed University of 00:00:00 [facility] HIB 4 Dose Schedule 2005-01-10 Completed Unive rsity of 00:00:00 [facility] MMR 2005-01-10 Completed [facility] of 00:00:00 [facility] MMR 2005-01-10 Completed [facility] of 00:00:00 [facility] Pneumococcal 13 2005-01-10 Completed [facility] of Conjugate, PCV13 00:00:00 [facility] dical (Prevnar 13) Branch Polio (IPV/OPV) 2005-01-10 Completed [facility] of 00:00:00 [facility] Pneumococcal 13 2005-01-10 Completed [facility] of Conjugate, PCV13 00:00:00 [facility] dical (Prevnar 13) Branch DTAP 2005-01-10 Completed [facility] of 00:00:00 [facility] HIB 4 Dose Schedule 2005-01-10 Completed Unive rsity of 00:00:00 [facility] MMR 2005-01-10 Completed [facility] of 00:00:00 [facility] Pneumococcal 13 2005-01-10 Completed [facility] of Conjugate, PCV13 00:00:00 [facility] dical (Prevnar 13) Branch Polio (IPV/OPV) 2005-01-10 Completed [facility] of 00:00:00 [facility] Polio (IPV/OPV) 2005-01-10 Completed [facility] of 00:00:00 [facility] DTAP 2005-01-10 Completed [facility] of 00:00:00 [facility] HIB 4 Dose Schedule 2005-01-10 Completed Unive rsity of 00:00:00 [facility] MMR 2005-01-10 Completed [facility] of 00:00:00 [facility] Pneumococcal 13 2005-01-10 Completed [facility] of Conjugate, PCV13 00:00:00 [facility] dical (Prevnar 13) Branch Polio (IPV/OPV) 2005-01-10 Completed [facility] of 00:00:00 [facility] DTAP 2005-01-10 Completed [facility] of 00:00:00 [facility] HIB 4 Dose Schedule 2005-01-10 Completed Unive rsity of 00:00:00 [facility] MMR 2005-01-10 Completed [facility] of 00:00:00 [facility] Pneumococcal 13 2005-01-10 Completed [facility] of Conjugate, PCV13 00:00:00 [facility] dical (Prevnar 13) Branch Polio (IPV/OPV) 2005-01-10 Completed [facility] of 00:00:00 [facility] DTAP 2005-01-10 Completed University of 00:00:00 [facility] HIB 4 Dose Schedule 2005-01-10 Completed Unive rsity of 00:00:00 [facility] MMR 2005-01-10 Completed University of 00:00:00 [facility] Pneumococcal 13 2005-01-10 Completed [facility] of Conjugate, PCV13 00:00:00 [place] [facility] (Prevnar 13) Branch Polio (IPV/OPV) 2005-01-10 Completed [facility] of 00:00:00 [facility] DTAP 2005-01-10 Completed University of 00:00:00 [facility] HIB 4 Dose Schedule 2005-01-10 Completed Unive rsity of 00:00:00 [facility] MMR 2005-01-10 Completed University of 00:00:00 [facility] Pneumococcal 13 2005-01-10 Completed [facility] of Conjugate, PCV13 00:00:00 [facility] dical (Prevnar 13) Branch Polio (IPV/OPV) 2005-01-10 Completed [facility] of 00:00:00 [facility] DTAP 2005-01-10 Completed University of 00:00:00 [facility] HIB 4 Dose Schedule 2005-01-10 Completed Unive rsity of 00:00:00 [facility] MMR 2005-01-10 Completed University of 00:00:00 [facility] Pneumococcal 13 2005-01-10 Completed [facility] of Conjugate, PCV13 00:00:00 [facility] dical (Prevnar 13) Branch Polio (IPV/OPV) 2005-01-10 Completed [facility] of 00:00:00 [facility] DTAP 2005-01-10 Completed University of 00:00:00 [facility] HIB 4 Dose Schedule 2005-01-10 Completed Unive rsity of 00:00:00 [facility] MMR 2005-01-10 Completed University of 00:00:00 [facility] Pneumococcal 13 2005-01-10 Completed [facility] of Conjugate, PCV13 00:00:00 [facility] dical (Prevnar 13) Branch Polio (IPV/OPV) 2005-01-10 Completed [facility] of 00:00:00 [facility] DTAP 2005-01-10 Completed University of 00:00:00 [facility] DTAP 2005-01-10 Completed University of 00:00:00 [facility] HIB 4 Dose Schedule 2005-01-10 Completed Unive rsity of 00:00:00 [facility] MMR 2005-01-10 Completed University of 00:00:00 [facility] Pneumococcal 13 2005-01-10 Completed [facility] of Conjugate, PCV13 00:00:00 [facility] dical (Prevnar 13) Branch Polio (IPV/OPV) 2005-01-10 Completed [facility] of 00:00:00 [facility] DTAP 2005-01-10 Completed University of 00:00:00 [facility] HIB 4 Dose Schedule 2005-01-10 Completed Unive rsity of 00:00:00 [facility] HIB 4 Dose Schedule 2005-01-10 Completed Unive rsity of 00:00:00 [facility] MMR 2005-01-10 Completed University of 00:00:00 [facility] Pneumococcal 13 2005-01-10 Completed [facility] of Conjugate, PCV13 00:00:00 [facility] dical (Prevnar 13) Branch Polio (IPV/OPV) 2005-01-10 Completed [facility] of 00:00:00 [facility] DTAP 2005-01-10 Completed [facility] of 00:00:00 [facility] HIB 4 Dose Schedule 2005-01-10 Completed Unive rsity of 00:00:00 [facility] MMR 2005-01-10 Completed University of 00:00:00 [facility] Pneumococcal 13 2005-01-10 Completed [facility] of Conjugate, PCV13 00:00:00 [facility] dical (Prevnar 13) Branch Polio (IPV/OPV) 2005-01-10 Completed [facility] of 00:00:00 [facility] MMR 2005-01-10 Completed [facility] of 00:00:00 [facility] Pneumococcal 13 2005-01-10 Completed [facility] of Conjugate, PCV13 00:00:00 [facility] dical (Prevnar 13) Branch DTAP 2005-01-10 Completed [facility] of 00:00:00 [facility] HIB 4 Dose Schedule 2005-01-10 Completed Unive rsity of 00:00:00 [facility] MMR 2005-01-10 Completed [facility] of 00:00:00 [facility] Pneumococcal 13 2005-01-10 Completed [facility] of Conjugate, PCV13 00:00:00 [facility] dical (Prevnar 13) Branch Polio (IPV/OPV) 2005-01-10 Completed [facility] of 00:00:00 [facility] Polio (IPV/OPV) 2005-01-10 Completed [facility] of 00:00:00 [facility] DTAP 2005-01-10 Completed University of 00:00:00 [facility] HIB 4 Dose Schedule 2005-01-10 Completed Unive rsity of 00:00:00 [facility] MMR 2005-01-10 Completed University of 00:00:00 [facility] Pneumococcal 13 2005-01-10 Completed [facility] of Conjugate, PCV13 00:00:00 [facility] dical (Prevnar 13) Branch Polio (IPV/OPV) 2005-01-10 Completed [facility] of 00:00:00 [facility] DTAP 2005-01-10 Completed University of 00:00:00 [facility] HIB 4 Dose Schedule 2005-01-10 Completed Unive rsity of 00:00:00 [facility] MMR 2005-01-10 Completed University of 00:00:00 [facility] Pneumococcal 13 2005-01-10 Completed [facility] of Conjugate, PCV13 00:00:00 [facility] dical (Prevnar 13) Branch Polio (IPV/OPV) 2005-01-10 Completed [facility] of 00:00:00 [facility] DTAP 2005-01-10 Completed University of 00:00:00 [facility] HIB 4 Dose Schedule 2005-01-10 Completed Unive rsity of 00:00:00 [facility] MMR 2005-01-10 Completed University of 00:00:00 [facility] Pneumococcal 13 2005-01-10 Completed [facility] of Conjugate, PCV13 00:00:00 [facility] dical (Prevnar 13) Branch Polio (IPV/OPV) 2005-01-10 Completed [facility] of 00:00:00 [facility] DTAP 2005-01-10 Completed University of 00:00:00 [facility] HIB 4 Dose Schedule 2005-01-10 Completed Unive rsity of 00:00:00 [facility] MMR 2005-01-10 Completed University of 00:00:00 [facility] Pneumococcal 13 2005-01-10 Completed [facility] of Conjugate, PCV13 00:00:00 [facility] dical (Prevnar 13) Branch Polio (IPV/OPV) 2005-01-10 Completed [facility] of 00:00:00 [facility] DTAP 2005-01-10 Completed University of 00:00:00 [facility] HIB 4 Dose Schedule 2005-01-10 Completed Unive rsity of 00:00:00 [facility] MMR 2005-01-10 Completed [facility] of 00:00:00 [facility] Pneumococcal 13 2005-01-10 Completed [facility] of Conjugate, PCV13 00:00:00 [facility] dical (Prevnar 13) Branch Polio (IPV/OPV) 2005-01-10 Completed [facility] of 00:00:00 [facility] DTAP 2005-01-10 Completed University of 00:00:00 [facility] DTAP 2005-01-10 Completed [facility] of 00:00:00 [facility] HIB 4 Dose Schedule 2005-01-10 Completed Unive rsity of 00:00:00 [facility] MMR 2005-01-10 Completed [facility] of 00:00:00 [facility] Pneumococcal 13 2005-01-10 Completed [facility] of Conjugate, PCV13 00:00:00 [facility] dical (Prevnar 13) Branch Polio (IPV/OPV) 2005-01-10 Completed [facility] of 00:00:00 [facility] MMR 2005-01-10 Completed University of 00:00:00 [facility] HIB 4 Dose Schedule 2005-01-10 Completed Unive rsity of 00:00:00 [facility] DTAP 2005-01-10 Completed University of 00:00:00 [facility] HIB 4 Dose Schedule 2005-01-10 Completed Unive rsity of 00:00:00 [facility] MMR 2005-01-10 Completed University of 00:00:00 [facility] Pneumococcal 13 2005-01-10 Completed [facility] of Conjugate, PCV13 00:00:00 [facility] dical (Prevnar 13) Branch Polio (IPV/OPV) 2005-01-10 Completed [facility] of 00:00:00 [facility] DTAP 2005-01-10 Completed University of 00:00:00 [facility] HIB 4 Dose Schedule 2005-01-10 Completed Unive rsity of 00:00:00 [facility] MMR 2005-01-10 Completed University of 00:00:00 [facility] Pneumococcal 13 2005-01-10 Completed Universit y of Conjugate, PCV13 00:00:00 [facility] dical (Prevnar 13) Branch Polio (IPV/OPV) 2005-01-10 Completed [facility] of 00:00:00 [facility] MMR 2005-01-10 Completed University of 00:00:00 [facility] Pneumococcal 13 2005-01-10 Completed [facility] of Conjugate, PCV13 00:00:00 [place] [facility] (Prevnar 13) Branch Pneumococcal 13 2005-01-10 Completed [facility] of Conjugate, PCV13 00:00:00 [place] [facility] (Prevnar 13) Branch DTAP 2005-01-10 Completed [facility] of 00:00:00 [facility] HIB 4 Dose Schedule 2005-01-10 Completed Unive rsity of 00:00:00 [facility] MMR 2005-01-10 Completed University of 00:00:00 [facility] Pneumococcal 13 2005-01-10 Completed [facility]it [facility] of Conjugate, PCV13 00:00:00 [facility] dical (Prevnar 13) Branch Polio (IPV/OPV) 2005-01-10 Completed [facility] of 00:00:00 [facility] Polio (IPV/OPV) 2005-01-10 Completed [facility] of 00:00:00 [facility] DTaP, Unspecified 2005-01-10 Completed Univers ity of Formulation 00:00:00 [facility] HEPA,NOS 2005-01-10 Completed University of 00:00:00 [facility] Hib-HbOC 2005-01-10 Completed University of 00:00:00 [facility] IPV 2005-01-10 Completed [facility] of 00:00:00 [facility] Pneumococcal 7 2005-01-10 Completed University of Conjugate, PCV7 00:00:00 [place] [facility] (Prevnar7) Branch DTAP 2005-01-10 Completed [facility] of 00:00:00 [facility] HIB 4 Dose Schedule 2005-01-10 Completed Unive rsity of 00:00:00 [facility] MMR 2005-01-10 Completed University of 00:00:00 [facility] Pneumococcal 13 2005-01-10 Completed [facility]it [facility] of Conjugate, PCV13 00:00:00 [facility] dical (Prevnar 13) Branch Polio (IPV/OPV) 2005-01-10 Completed [facility] of 00:00:00 [facility] DTaP, Unspecified 2005-01-10 Completed Univers ity of Formulation 00:00:00 [facility] HEPA,NOS 2005-01-10 Completed University of 00:00:00 [facility] Hib-HbOC 2005-01-10 Completed University of 00:00:00 [facility] IPV 2005-01-10 Completed University of 00:00:00 [facility] Pneumococcal 7 2005-01-10 Completed University of Conjugate, PCV7 00:00:00 [place] [facility] (Prevnar7) Branch DTAP 2005-01-10 Completed [facility] of 00:00:00 [facility] HIB 4 Dose Schedule 2005-01-10 Completed Unive rsity of 00:00:00 [facility] MMR 2005-01-10 Completed University of 00:00:00 [facility] Pneumococcal 13 2005-01-10 Completed [facility] of Conjugate, PCV13 00:00:00 [facility] dical (Prevnar 13) Branch Polio (IPV/OPV) 2005-01-10 Completed [facility] of 00:00:00 [facility] DTaP, Unspecified 2005-01-10 Completed Univers ity of Formulation 00:00:00 [facility] HEPA,NOS 2005-01-10 Completed University of 00:00:00 [facility] Hib-HbOC 2005-01-10 Completed University of 00:00:00 [facility] IPV 2005-01-10 Completed University of 00:00:00 [facility] Pneumococcal 7 2005-01-10 Completed University of Conjugate, PCV7 00:00:00 [place] [facility] (Prevnar7) Branch DTAP 2005-01-10 Completed [facility] of 00:00:00 [facility] HIB 4 Dose Schedule 2005-01-10 Completed Unive rsity of 00:00:00 [facility] MMR 2005-01-10 Completed University of 00:00:00 [facility] Pneumococcal 13 2005-01-10 Completed [facility]it y of Conjugate, PCV13 00:00:00 [facility] dical (Prevnar 13) Branch Polio (IPV/OPV) 2005-01-10 Completed [facility] of 00:00:00 [facility] DTaP, Unspecified 2005-01-10 Completed Univers ity of Formulation 00:00:00 [facility] HEPA,NOS 2005-01-10 Completed University of 00:00:00 [facility] Hib-HbOC 2005-01-10 Completed University of 00:00:00 [facility] IPV 2005-01-10 Completed University of 00:00:00 [facility] Pneumococcal 7 2005-01-10 Completed University of Conjugate, PCV7 00:00:00 [place] [facility] (Prevnar7) Branch DTAP 2005-01-10 Completed [facility] of 00:00:00 [facility] HIB 4 Dose Schedule 2005-01-10 Completed Unive rsity of 00:00:00 [facility] MMR 2005-01-10 Completed University of 00:00:00 [facility] Pneumococcal 13 2005-01-10 Completed [facility]it [facility] of Conjugate, PCV13 00:00:00 [facility] dical (Prevnar 13) Branch Polio (IPV/OPV) 2005-01-10 Completed [facility] of 00:00:00 [facility] DTaP, Unspecified 2005-01-10 Completed Univers ity of Formulation 00:00:00 [facility] HEPA,NOS 2005-01-10 Completed [facility] of 00:00:00 [facility] Hib-HbOC 2005-01-10 Completed [facility] of 00:00:00 [facility] IPV 2005-01-10 Completed [facility] of 00:00:00 [facility] Pneumococcal 7 2005-01-10 Completed University of Conjugate, PCV7 00:00:00 [place] [facility] (Prevnar7) Branch DTAP 2005-01-10 Completed [facility] 00:00:00 [facility] HIB 4 Dose Schedule 2005-01-10 Completed Unive rsity of 00:00:00 [facility] MMR 2005-01-10 Completed University of 00:00:00 [facility] Pneumococcal 13 2005-01-10 Completed Universit y of Conjugate, PCV13 00:00[facility] Polio (IPV/OPV) 2005-01-10 Completed Universit y of 00:00:00 [facility] DTaP, Unspecified 2005-01-10 Completed Univers ity of Formulation 00:00:00 [facility] HEPA,NOS 2005-01-10 Completed University of 00:00:00 [facility] Polio (IPV/OPV) 2005-01-10 Completed Universit y of 00:00:00 [facility] Hib-HbOC 2005-01-10 Completed University of 00:00:00 [facility] IPV 2005-01-10 Completed University of 00:00:00 [facility] Pneumococcal 7 2005-01-10 Completed University of Conjugate, PCV7 00:00:00 [place] [facility] (Prevnar7) Branch DTAP 2005-01-10 Completed [facility] of 00:00:00 [facility] HIB 4 Dose Schedule 2005-01-10 Completed Unive rsity of 00:00:00 [facility] MMR 2005-01-10 Completed University of 00:00:00 [facility] Pneumococcal 13 2005-01-10 Completed Universit y of Conjugate, PCV13 00:00:00 [facility] dical (Prevnar 13) Branch Polio (IPV/OPV) 2005-01-10 Completed Universit y of 00:00:00 [facility] DTAP 2005-01-10 Completed University of 00:00:00 [facility] DTaP, Unspecified 2005-01-10 Completed Univers ity of Formulation 00:00:00 [facility] HEPA,NOS 2005-01-10 Completed University of 00:00:00 [facility] Hib-HbOC 2005-01-10 Completed University of 00:00:00 [facility] IPV 2005-01-10 Completed University of 00:00:00 [facility] Pneumococcal 7 2005-01-10 Completed University of Conjugate, PCV7 00:00:00 [place] [facility] (Prevnar7) Branch DTAP 2005-01-10 Completed [facility] of 00:00:00 [facility] HIB 4 Dose Schedule 2005-01-10 Completed Unive rsity of 00:00:00 [facility] HIB 4 Dose Schedule 2005-01-10 Completed Unive rsity of 00:00:00 [facility] MMR 2005-01-10 Completed University of 00:00:00 [facility] Pneumococcal 13 2005-01-10 Completed Universit y of Conjugate, PCV13 00:00:00 [facility] (Prevnar 13) Branch Polio (IPV/OPV) 2005-01-10 Completed Universit y of 00:00:00 [facility] DTaP, Unspecified 2005-01-10 Completed Univers ity of Formulation 00:00:00 [facility] HEPA,NOS 2005-01-10 Completed University of 00:00:00 [facility] Hib-HbOC 2005-01-10 Completed University of 00:00:00 [facility] IPV 2005-01-10 Completed University of 00:00:00 [facility] Pneumococcal 7 2005-01-10 Completed University of Conjugate, PCV7 00:00:00 [place] [facility] (Prevnar7) Branch DTAP 2005-01-10 Completed [facility] of 00:00:00 [facility] HIB 4 Dose Schedule 2005-01-10 Completed Unive rsity of 00:00:00 [facility] MMR 2005-01-10 Completed University of 00:00:00 [facility] Pneumococcal 13 2005-01-10 Completed Universit y of Conjugate, PCV13 00:00:00 [facility] dical (Prevnar 13) Branch Polio (IPV/OPV) 2005-01-10 Completed Universit y of 00:00:00 [facility] MMR 2005-01-10 Completed University of 00:00:00 [facility] DTaP, Unspecified 2005-01-10 Completed Univers ity of Formulation 00:00:00 [facility] HEPA,NOS 2005-01-10 Completed University of 00:00:00 [facility] Pneumococcal 13 2005-01-10 Completed Universit y of Conjugate, PCV13 00:00:00 [facility] dical (Prevnar 13) Branch Hib-HbOC 2005-01-10 Completed University of 00:00:00 [facility] IPV 2005-01-10 Completed University of 00:00:00 [facility] Pneumococcal 7 2005-01-10 Completed University of Conjugate, PCV7 00:00:00 [place] [facility] (Prevnar7) Branch DTAP 2005-01-10 Completed University of 00:00:00 [facility] Polio (IPV/OPV) 2005-01-10 Completed Universit y of 00:00:00 [facility] HIB 4 Dose Schedule 2005-01-10 Completed Unive rsity of 00:00:00 [facility] MMR 2005-01-10 Completed University of 00:00:00 [facility] Pneumococcal 13 2005-01-10 Completed Universit y of Conjugate, PCV13 00:00:00 [facility] dical (Prevnar 13) Branch Polio (IPV/OPV) 2005-01-10 Completed Universit y of 00:00:00 [facility] DTaP, Unspecified 2005-01-10 Completed Univers ity of Formulation 00:00:00 [facility] HEPA,NOS 2005-01-10 Completed University of 00:00:00 [facility] Hib-HbOC 2005-01-10 Completed University of 00:00:00 [facility] IPV 2005-01-10 Completed University of 00:00:00 [facility] Pneumococcal 7 2005-01-10 Completed University of Conjugate, PCV7 00:00:00 [place] [facility] (Prevnar7) Branch DTAP 2005-01-10 Completed [facility] of 00:00:00 [facility] HIB 4 Dose Schedule 2005-01-10 Completed Unive rsity of 00:00:00 [facility] MMR 2005-01-10 Completed University of 00:00:00 [facility] Pneumococcal 13 2005-01-10 Completed Universit y of Conjugate, PCV13 00:00:00 [facility] dical (Prevnar 13) Branch Polio (IPV/OPV) 2005-01-10 Completed Universit y of 00:00:00 [facility] DTaP, Unspecified 2005-01-10 Completed Univers ity of Formulation 00:00:00 [facility] HEPA,NOS 2005-01-10 Completed University of 00:00:00 [facility] Hib-HbOC 2005-01-10 Completed University of 00:00:00 [facility] IPV 2005-01-10 Completed University of 00:00:00 [facility] Pneumococcal 7 2005-01-10 Completed University of Conjugate, PCV7 00:00:00 [facility] ical (Prevnar7) Branch DTAP 2005-01-10 Completed University of 00:00:00 [facility] HIB 4 Dose Schedule 2005-01-10 Completed Unive rsity of 00:00:00 [facility] MMR 2005-01-10 Completed University of 00:00:00 [facility] Pneumococcal 13 2005-01-10 Completed Universit y of Conjugate, PCV13 00:00:00 [facility] dical (Prevnar 13) Branch Polio (IPV/OPV) 2005-01-10 Completed Universit y of 00:00:00 [facility] DTaP, Unspecified 2005-01-10 Completed Univers ity of Formulation 00:00:00 [facility] HEPA,NOS 2005-01-10 Completed University of 00:00:00 [facility] Hib-HbOC 2005-01-10 Completed University of 00:00:00 [facility] IPV 2005-01-10 Completed University of 00:00:00 [facility] Pneumococcal 7 2005-01-10 Completed University of Conjugate, PCV7 00:00:00 [place] [facility] (Prevnar7) Branch DTAP 2005-01-10 Completed University of 00:00:00 [facility] HIB 4 Dose Schedule 2005-01-10 Completed Unive rsity of 00:00:00 [facility] MMR 2005-01-10 Completed University of 00:00:00 [facility] Pneumococcal 13 2005-01-10 Completed Universit y of Conjugate, PCV13 00:00:00 [place] [facility] (Prevnar 13) Branch Polio (IPV/OPV) 2005-01-10 Completed Universit y of 00:00:00 [facility] DTaP, Unspecified 2005-01-10 Completed Univers ity of Formulation 00:00:00 [facility] HEPA,NOS 2005-01-10 Completed University of 00:00:00 [facility] Hib-HbOC 2005-01-10 Completed University of 00:00:00 [facility] IPV 2005-01-10 Completed University of 00:00:00 [facility] Pneumococcal 7 2005-01-10 Completed University of Conjugate, PCV7 00:00:00 [place] [facility] (Prevnar7) Branch DTAP 2005-01-10 Completed University of 00:00:00 [facility] HIB 4 Dose Schedule 2005-01-10 Completed Unive rsity of 00:00:00 [facility] MMR 2005-01-10 Completed University of 00:00:00 [facility] Pneumococcal 13 2005-01-10 Completed Universit y of Conjugate, PCV13 00:00:00 [facility] dical (Prevnar 13) Branch Polio (IPV/OPV) 2005-01-10 Completed Universit y of 00:00:00 [facility] DTaP, Unspecified 2005-01-10 Completed Univers ity of Formulation 00:00:00 [facility] HEPA,NOS 2005-01-10 Completed University of 00:00:00 [facility] Hib-HbOC 2005-01-10 Completed University of 00:00:00 [facility] DTAP 2005-01-10 Completed University of 00:00:00 [facility] IPV 2005-01-10 Completed University of 00:00:00 [facility] Pneumococcal 7 2005-01-10 Completed University of Conjugate, PCV7 00:00:00 [place] [facility] (Prevnar7) Branch DTAP 2005-01-10 Completed University of 00:00:00 [facility] HIB 4 Dose Schedule 2005-01-10 Completed Unive rsity of 00:00:00 [facility] MMR 2005-01-10 Completed University of 00:00:00 [facility] Pneumococcal 13 2005-01-10 Completed Universit y of Conjugate, PCV13 00:00:00 [facility] dical (Prevnar 13) Branch HIB 4 Dose Schedule 2005-01-10 Completed Unive rsity of 00:00:00 [facility] Polio (IPV/OPV) 2005-01-10 Completed Universit y of 00:00:00 [facility] DTaP, Unspecified 2005-01-10 Completed Univers ity of Formulation 00:00:00 [facility] HEPA,NOS 2005-01-10 Completed University of 00:00:00 [facility] Hib-HbOC 2005-01-10 Completed University of 00:00:00 [facility] IPV 2005-01-10 Completed University of 00:00:00 [facility] Pneumococcal 7 2005-01-10 Completed University of Conjugate, PCV7 00:00:00 [place] [facility] (Prevnar7) Branch DTAP 2005-01-10 Completed [facility] of 00:00:00 [facility] HIB 4 Dose Schedule 2005-01-10 Completed Unive rsity of 00:00:00 [facility] MMR 2005-01-10 Completed University of 00:00:00 [facility] Pneumococcal 13 2005-01-10 Completed Universit y of Conjugate, PCV13 00:00:00 [place] [facility] (Prevnar 13) Branch Polio (IPV/OPV) 2005-01-10 Completed Universit y of 00:00:00 [facility] DTaP, Unspecified 2005-01-10 Completed Univers ity of Formulation 00:00:00 [facility] HEPA,NOS 2005-01-10 Completed University of 00:00:00 [facility] MMR 2005-01-10 Completed University of 00:00:00 [facility] Hib-HbOC 2005-01-10 Completed University of 00:00:00 [facility] IPV 2005-01-10 Completed University of 00:00:00 [facility] Pneumococcal 13 2005-01-10 Completed Universit y of Conjugate, PCV13 00:00:00 [place] [facility] (Prevnar 13) Branch Pneumococcal 7 2005-01-10 Completed University of Conjugate, PCV7 00:00:00 [place] [facility] (Prevnar7) Branch DTAP 2005-01-10 Completed University of 00:00:00 [facility] HIB 4 Dose Schedule 2005-01-10 Completed Unive rsity of 00:00:00 [facility] MMR 2005-01-10 Completed University of 00:00:00 [facility] Pneumococcal 13 2005-01-10 Completed Universit y of Conjugate, PCV13 00:00:00 [place] [facility] (Prevnar 13) Branch Polio (IPV/OPV) 2005-01-10 Completed Universit y of 00:00:00 [facility] Polio (IPV/OPV) 2005-01-10 Completed Universit y of 00:00:00 [facility] DTaP, Unspecified 2005-01-10 Completed Univers ity of Formulation 00:00:00 [facility] HEPA,NOS 2005-01-10 Completed University of 00:00:00 [facility] Hib-HbOC 2005-01-10 Completed University of 00:00:00 [facility] IPV 2005-01-10 Completed University of 00:00:00 [facility] Pneumococcal 7 2005-01-10 Completed University of Conjugate, PCV7 00:00:00 [place] [facility] (Prevnar7) Branch DTAP 2005-01-10 Completed University of 00:00:00 [facility] HIB 4 Dose Schedule 2005-01-10 Completed Unive rsity of 00:00:00 [facility] MMR 2005-01-10 Completed University of 00:00:00 [facility] Pneumococcal 13 2005-01-10 Completed Universit y of Conjugate, PCV13 00:00:00 [facility] dical (Prevnar 13) [place] Polio (IPV/OPV) 2005-01-10 Completed Universit y of 00:00:00 [facility] DTaP, Unspecified 2005-01-10 Completed Univers ity of Formulation 00:00:00 [facility] HEPA,NOS 2005-01-10 Completed University of 00:00:00 [facility] Hib-HbOC 2005-01-10 Completed University of 00:00:00 [facility] IPV 2005-01-10 Completed University of 00:00:00 [facility] Pneumococcal 7 2005-01-10 Completed University of Conjugate, PCV7 00:00:00 [place] [facility] (Prevnar7) Branch DTAP 2005-01-10 Completed University of 00:00:00 [facility] HIB 4 Dose Schedule 2005-01-10 Completed Unive rsity of 00:00:00 [facility] MMR 2005-01-10 Completed University of 00:00:00 [facility] Pneumococcal 13 2005-01-10 Completed Universit y of Conjugate, PCV13 00:00:00 [facility] dical (Prevnar 13) Branch Polio (IPV/OPV) 2005-01-10 Completed Universit y of 00:00:00 [facility] DTAP 2005-01-10 Completed University of 00:00:00 [facility] HIB 4 Dose Schedule 2005-01-10 Completed Unive rsity of 00:00:00 [facility] MMR 2005-01-10 Completed University of 00:00:00 [facility] Pneumococcal 13 2005-01-10 Completed Universit y of Conjugate, PCV13 00:00:00 [place] [facility] (Prevnar 13) Branch Polio (IPV/OPV) 2005-01-10 Completed Universit y of 00:00:00 [facility] DTAP 2005-01-10 Completed University of 00:00:00 [facility] DTAP 2005-01-10 Completed University of 00:00:00 [facility] HIB 4 Dose Schedule 2005-01-10 Completed Unive rsity of 00:00:00 [facility] MMR 2005-01-10 Completed University of 00:00:00 [facility] Pneumococcal 13 2005-01-10 Completed Universit y of Conjugate, PCV13 00:00:00 [facility] dical (Prevnar 13) Branch Polio (IPV/OPV) 2005-01-10 Completed Universit y of 00:00:00 [facility] HIB 4 Dose Schedule 2005-01-10 Completed Unive rsity of 00:00:00 [facility] DTAP 2005-01-10 Completed University of 00:00:00 [facility] HIB 4 Dose Schedule 2005-01-10 Completed Unive rsity of 00:00:00 [facility] MMR 2005-01-10 Completed University of 00:00:00 [facility] Pneumococcal 13 2005-01-10 Completed Universit y of Conjugate, PCV13 00:00:00 [facility] dical (Prevnar 13) Branch Polio (IPV/OPV) 2005-01-10 Completed Universit y of 00:00:00 [facility] DTAP 2005-01-10 Completed University of 00:00:00 [facility] HIB 4 Dose Schedule 2005-01-10 Completed Unive rsity of 00:00:00 [facility] MMR 2005-01-10 Completed University of 00:00:00 [facility] Pneumococcal 13 2005-01-10 Completed Universit y of Conjugate, PCV13 00:00:00 [facility] dical (Prevnar 13) Branch Polio (IPV/OPV) 2005-01-10 Completed Universit y of 00:00:00 [facility] MMR 2005-01-10 Completed University of 00:00:00 [facility] DTAP 2005-01-10 Completed University of 00:00:00 [facility] HIB 4 Dose Schedule 2005-01-10 Completed Unive rsity of 00:00:00 [facility] Pneumococcal 13 2005-01-10 Completed Universit y of Conjugate, PCV13 00:00:00 [place] [facility] (Prevnar 13) Branch MMR 2005-01-10 Completed [facility] of 00:00:00 [facility] Pneumococcal 13 2005-01-10 Completed Universit y of Conjugate, PCV13 00:00:00 [place] [facility] (Prevnar 13) Branch Polio (IPV/OPV) 2005-01-10 Completed Universit y of 00:00:00 [facility] Polio (IPV/OPV) 2005-01-10 Completed Universit y of 00:00:00 [facility] DTAP 2005-01-10 Completed University of 00:00:00 [facility] HIB 4 Dose Schedule 2005-01-10 Completed Unive rsity of 00:00:00 [facility] MMR 2005-01-10 Completed University of 00:00:00 [facility] Pneumococcal 13 2005-01-10 Completed Universit y of Conjugate, PCV13 00:00:00 [facility] dical (Prevnar 13) Branch Polio (IPV/OPV) 2005-01-10 Completed Universit y of 00:00:00 [facility] DTAP 2005-01-10 Completed University of 00:00:00 [facility] HIB 4 Dose Schedule 2005-01-10 Completed Unive rsity of 00:00:00 [facility] MMR 2005-01-10 Completed University of 00:00:00 [facility] Pneumococcal 13 2005-01-10 Completed Universit y of Conjugate, PCV13 00:00:00 [place] [facility] (Prevnar 13) Branch Polio (IPV/OPV) 2005-01-10 Completed Universit y of 00:00:00 [facility] DTAP 2005-01-10 Completed University of 00:00:00 [facility] HIB 4 Dose Schedule 2005-01-10 Completed Unive rsity of 00:00:00 [facility] MMR 2005-01-10 Completed University of 00:00:00 [facility] Pneumococcal 13 2005-01-10 Completed Universit y of Conjugate, PCV13 00:00:00 [place] [facility] (Prevnar 13) Branch Polio (IPV/OPV) 2005-01-10 Completed Universit y of 00:00:00 [facility] DTAP 2005-01-10 Completed University of 00:00:00 [facility] HIB 4 Dose Schedule 2005-01-10 Completed Unive rsity of 00:00:00 [facility] MMR 2005-01-10 Completed University of 00:00:00 [facility] Pneumococcal 13 2005-01-10 Completed Universit y of Conjugate, PCV13 00:00:00 [facility] dical (Prevnar 13) Branch Polio (IPV/OPV) 2005-01-10 Completed Universit y of 00:00:00 [facility] DTAP 2005-01-10 Completed University of 00:00:00 [facility] HIB 4 Dose Schedule 2005-01-10 Completed Unive rsity of 00:00:00 [facility] MMR 2005-01-10 Completed University of 00:00:00 [facility] Pneumococcal 13 2005-01-10 Completed Universit y of Conjugate, PCV13 00:00:00 [facility] dical (Prevnar 13) Branch Polio (IPV/OPV) 2005-01-10 Completed Universit y of 00:00:00 [facility] DTAP 2005-01-10 Completed University of 00:00:00 [facility] HIB 4 Dose Schedule 2005-01-10 Completed Unive rsity of 00:00:00 [facility] MMR 2005-01-10 Completed University of 00:00:00 [facility] Pneumococcal 13 2005-01-10 Completed Universit y of Conjugate, PCV13 00:00:00 [facility] dical (Prevnar 13) Branch Polio (IPV/OPV) 2005-01-10 Completed Universit y of 00:00:00 [facility] DTAP 2005-01-10 Completed University of 00:00:00 [facility] DTAP 2005-01-10 Completed University of 00:00:00 [facility] HIB 4 Dose Schedule 2005-01-10 Completed Unive rsity of 00:00:00 [facility] HIB 4 Dose Schedule 2005-01-10 Completed Unive rsity of 00:00:00 [facility] MMR 2005-01-10 Completed University of 00:00:00 [facility] Pneumococcal 13 2005-01-10 Completed Universit y of Conjugate, PCV13 00:00:00 [place] [facility] (Prevnar 13) Branch Polio (IPV/OPV) 2005-01-10 Completed [facility] 00:00:00 [facility] [place] [facility] MMR 2005-01-10 Completed [facility] of 00:00:00 [facility] Pneumococcal 13 2005-01-10 Completed Universit y of Conjugate, PCV13 00:00:00 [facility] dical (Prevnar 13) Branch DTAP 2005-01-10 Completed University of 00:00:00 [facility] HIB 4 Dose Schedule 2005-01-10 Completed Unive rsity of 00:00:00 [facility] HEPATITIS A 2005-01-08 Completed University of 00:00:00 [facility] HEPATITIS A 2005-01-08 Completed [facility] of 00:00:00 [facility] HEPATITIS A 2005-01-08 Completed [facility] 00:00:00 [facility] HEPATITIS A 2005-01-08 Completed [facility] of 00:00:00 [facility] HEPATITIS A 2005-01-08 Completed [facility] 00:00:00 [facility] HEPATITIS A 2005-01-08 Completed [facility] 00:00:00 [facility] HEPATITIS A 2005-01-08 Completed [facility] 00:00:00 [facility] HEPATITIS A 2005-01-08 Completed [facility] 00:00:00 [facility] HEPATITIS A 2005-01-08 Completed [facility] 00:00:00 [facility] HEPATITIS A 2005-01-08 Completed [facility] 00:00:00 [facility] HEPATITIS A 2005-01-08 Completed [facility] 00:00:00 [facility] HEPATITIS A 2005-01-08 Completed [facility] 00:00:00 [facility] HEPATITIS A 2005-01-08 Completed [facility] 00:00:00 [facility] HEPATITIS A 2005-01-08 Completed [facility] 00:00:00 [facility] HEPATITIS A 2005-01-08 Completed [facility] 00:00:00 [facility] HEPATITIS A 2005-01-08 Completed [facility] 00:00:00 [facility] HEPATITIS A 2005-01-08 Completed [facility] 00:00:00 [facility] HEPATITIS A 2005-01-08 Completed [facility] 00:00:00 [facility] HEPATITIS A 2005-01-08 Completed [facility] 00:00:00 [facility] HEPATITIS A 2005-01-08 Completed [facility] 00:00:00 [facility] HEPATITIS A 2005-01-08 Completed [facility] 00:00:00 [facility] HEPATITIS A 2005-01-08 Completed [facility] 00:00:00 [facility] HEPATITIS A 2005-01-08 Completed [facility] 00:00:00 [facility] HEPATITIS A 2005-01-08 Completed [facility] 00:00:00 [facility] HEPATITIS A 2005-01-08 Completed [facility] 00:00:00 [facility] HEPATITIS A 2005-01-08 Completed [facility] 00:00:00 [facility] HEPATITIS A 2005-01-08 Completed [facility] 00:00:00 [facility] HEPATITIS A 2005-01-08 Completed [facility] 00:00:00 [facility] HEPATITIS A 2005-01-08 Completed [facility] 00:00:00 [facility] HEPATITIS A 2005-01-08 Completed [facility] 00:00:00 [facility] HEPATITIS A 2005-01-08 Completed [facility] 00:00:00 [facility] HEPATITIS A 2005-01-08 Completed [facility] 00:00:00 [facility] HEPATITIS A 2005-01-08 Completed [facility] 00:00:00 [facility] HEPATITIS A 2005-01-08 Completed [facility] 00:00:00 [facility] HEPATITIS A 2005-01-08 Completed [facility] 00:00:00 [facility] HEPATITIS A 2005-01-08 Completed [facility] 00:00:00 [facility] HEPATITIS A 2005-01-08 Completed [facility] 00:00:00 [facility] HEPATITIS A 2005-01-08 Completed [facility] 00:00:00 [facility] HEPATITIS A 2005-01-08 Completed [facility] 00:00:00 [facility] HEPATITIS A 2005-01-08 Completed [facility] 00:00:00 [facility] HEPATITIS A 2005-01-08 Completed [facility] 00:00:00 [facility] HEPA,NOS 2005-01-08 Completed [facility] 00:00:00 [facility] HEPATITIS A 2005-01-08 Completed [facility] 00:00:00 [facility] HEPA,NOS 2005-01-08 Completed [facility] 00:00:00 [facility] HEPATITIS A 2005-01-08 Completed [facility] 00:00:00 [facility] HEPA,NOS 2005-01-08 Completed [facility] 00:00:00 [facility] HEPATITIS A 2005-01-08 Completed [facility] 00:00:00 [facility] HEPA,NOS 2005-01-08 Completed [facility] 00:00:00 [facility] HEPATITIS A 2005-01-08 Completed [facility] 00:00:00 [facility] HEPA,NOS 2005-01-08 Completed [facility] 00:00:00 [facility] HEPATITIS A 2005-01-08 Completed [facility] 00:00:00 [facility] HEPA,NOS 2005-01-08 Completed [facility] 00:00:00 [facility] HEPATITIS A 2005-01-08 Completed [facility] 00:00:00 [facility] HEPA,NOS 2005-01-08 Completed [facility] 00:00:00 [facility] HEPATITIS A 2005-01-08 Completed [facility] 00:00:00 [facility] HEPATITIS A 2005-01-08 Completed [facility] 00:00:00 [facility] HEPA,NOS 2005-01-08 Completed [facility] 00:00:00 [facility] HEPATITIS A 2005-01-08 Completed [facility] 00:00:00 [facility] HEPA,NOS 2005-01-08 Completed [facility] 00:00:00 [facility] HEPATITIS A 2005-01-08 Completed [facility] 00:00:00 [facility] HEPA,NOS 2005-01-08 Completed [facility] 00:00:00 [facility] HEPATITIS A 2005-01-08 Completed [facility] 00:00:00 [facility] HEPA,NOS 2005-01-08 Completed [facility] 00:00:00 [facility] HEPATITIS A 2005-01-08 Completed [facility] 00:00:00 [facility] HEPA,NOS 2005-01-08 Completed [facility] 00:00:00 [facility] HEPATITIS A 2005-01-08 Completed [facility] 00:00:00 [facility] HEPA,NOS 2005-01-08 Completed [facility] 00:00:00 [facility] HEPATITIS A 2005-01-08 Completed [facility] 00:00:00 [facility] HEPA,NOS 2005-01-08 Completed [facility] 00:00:00 [facility] HEPATITIS A 2005-01-08 Completed [facility] 00:00:00 [facility] HEPA,NOS 2005-01-08 Completed [facility] 00:00:00 [facility] HEPATITIS A 2005-01-08 Completed [facility] 00:00:00 [facility] HEPATITIS A 2005-01-08 Completed [facility] 00:00:00 [facility] HEPA,NOS 2005-01-08 Completed [facility] 00:00:00 [facility] HEPATITIS A 2005-01-08 Completed [facility] 00:00:00 [facility] HEPA,NOS 2005-01-08 Completed [facility] 00:00:00 [facility] HEPATITIS A 2005-01-08 Completed [facility] 00:00:00 [facility] HEPA,NOS 2005-01-08 Completed [facility] 00:00:00 [facility] HEPATITIS A 2005-01-08 Completed [facility] 00:00:00 [facility] HEPATITIS A 2005-01-08 Completed [facility] 00:00:00 [facility] HEPATITIS A 2005-01-08 Completed [facility] 00:00:00 [facility] HEPATITIS A 2005-01-08 Completed [facility] 00:00:00 [facility] HEPATITIS A 2005-01-08 Completed [facility] 00:00:00 [facility] HEPATITIS A 2005-01-08 Completed [facility] 00:00:00 [facility] HEPATITIS A 2005-01-08 Completed [facility] 00:00:00 [facility] HEPATITIS A 2005-01-08 Completed [facility] 00:00:00 [facility] HEPATITIS A 2005-01-08 Completed [facility] 00:00:00 [facility] HEPATITIS A 2005-01-08 Completed [facility] 00:00:00 [facility] HEPATITIS A 2005-01-08 Completed [facility] 00:00:00 [facility] HEPATITIS A 2005-01-08 Completed [facility] 00:00:00 [facility] HEPATITIS A 2005-01-08 Completed [facility] 00:00:00 [facility] HEPATITIS A 2005-01-08 Completed [facility] 00:00:00 [facility] HEPATITIS A 2005-01-08 Completed [facility] 00:00:00 [facility] HEPATITIS A 2005-01-08 Completed [facility] 00:00:00 [facility] DTAP 2003-08-16 Completed [facility] 00:00:00 [facility] DTAP 2003-08-16 Completed [facility] 00:00:00 [facility] DTAP 2003-08-16 Completed [facility] 00:00:00 [facility] DTAP 2003-08-16 Completed [facility] 00:00:00 [facility] DTAP 2003-08-16 Completed [facility] 00:00:00 [facility] DTAP 2003-08-16 Completed [facility] 00:00:00 [facility] DTAP 2003-08-16 Completed [facility] 00:00:00 [facility] DTAP 2003-08-16 Completed [facility] 00:00:00 [facility] DTAP 2003-08-16 Completed [facility] 00:00:00 [facility] DTAP 2003-08-16 Completed [facility] 00:00:00 [facility] DTAP 2003-08-16 Completed [facility] 00:00:00 [facility] DTAP 2003-08-16 Completed [facility] 00:00:00 [facility] DTAP 2003-08-16 Completed [facility] 00:00:00 [facility] DTAP 2003-08-16 Completed [facility] 00:00:00 [facility] DTAP 2003-08-16 Completed [facility] 00:00:00 [facility] DTAP 2003-08-16 Completed [facility] 00:00:00 [facility] DTAP 2003-08-16 Completed [facility] 00:00:00 [facility] DTAP 2003-08-16 Completed [facility] 00:00:00 [facility] DTAP 2003-08-16 Completed [facility] 00:00:00 [facility] DTAP 2003-08-16 Completed [facility] 00:00:00 [facility] DTAP 2003-08-16 Completed [facility] 00:00:00 [facility] DTAP 2003-08-16 Completed [facility] 00:00:00 [facility] DTAP 2003-08-16 Completed [facility] 00:00:00 [facility] DTAP 2003-08-16 Completed [facility] 00:00:00 [facility] DTAP 2003-08-16 Completed [facility] 00:00:00 [facility] DTAP 2003-08-16 Completed [facility] 00:00:00 [facility] DTAP 2003-08-16 Completed [facility] 00:00:00 [facility] DTAP 2003-08-16 Completed [facility] 00:00:00 [facility] DTAP 2003-08-16 Completed [facility] 00:00:00 [facility] DTAP 2003-08-16 Completed [facility] 00:00:00 [facility] DTAP 2003-08-16 Completed [facility] 00:00:00 [facility] DTAP 2003-08-16 Completed [facility] 00:00:00 [facility] DTAP 2003-08-16 Completed [facility] 00:00:00 [facility] DTAP 2003-08-16 Completed [facility] 00:00:00 [facility] DTAP 2003-08-16 Completed [facility] 00:00:00 [facility] DTAP 2003-08-16 Completed [facility] 00:00:00 [facility] DTAP 2003-08-16 Completed [facility] 00:00:00 [facility] DTAP 2003-08-16 Completed [facility] 00:00:00 [facility] DTAP 2003-08-16 Completed [facility] 00:00:00 [facility] DTAP 2003-08-16 Completed [facility] 00:00:00 [facility] DTAP 2003-08-16 Completed [facility] 00:00:00 [facility] DTaP, Unspecified 2003-08-16 Completed Univers ity of Formulation 00:00:00 [facility] HIB 4 Dose Schedule 2003-08-16 Completed Unive rsity of 00:00:00 [facility] DTAP 2003-08-16 Completed [facility] 00:00:00 [facility] DTaP, Unspecified 2003-08-16 Completed [facility] Formulation 00:00:00 [facility] HIB 4 Dose Schedule 2003-08-16 Completed [facility]ive rs[facility] of 00:00:00 [facility] DTAP 2003-08-16 Completed [facility] 00:00:00 [facility] DTaP, Unspecified 2003-08-16 Completed [facility] Formulation 00:00:00 [facility] HIB 4 Dose Schedule 2003-08-16 Completed [facility]ive rs[facility] of 00:00:00 [facility] DTAP 2003-08-16 Completed [facility] 00:00:00 [facility] DTaP, Unspecified 2003-08-16 Completed [facility] Formulation 00:00:00 [facility] HIB 4 Dose Schedule 2003-08-16 Completed [facility]ive rs[facility] of 00:00:00 [facility] DTAP 2003-08-16 Completed [facility] 00:00:00 [facility] DTaP, Unspecified 2003-08-16 Completed [facility] Formulation 00:00:00 [facility] HIB 4 Dose Schedule 2003-08-16 Completed [facility]ive rs[facility] of 00:00:00 [facility] DTAP 2003-08-16 Completed [facility] 00:00:00 [facility] DTaP, Unspecified 2003-08-16 Completed [facility] Formulation 00:00:00 [facility] HIB 4 Dose Schedule 2003-08-16 Completed [facility]ive rs[facility] of 00:00:00 [facility] DTAP 2003-08-16 Completed [facility] 00:00:00 [facility] DTAP 2003-08-16 Completed [facility] 00:00:00 [facility] DTaP, Unspecified 2003-08-16 Completed [facility] Formulation 00:00:00 [facility] HIB 4 Dose Schedule 2003-08-16 Completed [facility]ive rs[facility] of 00:00:00 [facility] DTAP 2003-08-16 Completed [facility] 00:00:00 [facility] DTaP, Unspecified 2003-08-16 Completed [facility] Formulation 00:00:00 [facility] HIB 4 Dose Schedule 2003-08-16 Completed [facility]ive rs[facility] 00:00:00 [facility] DTAP 2003-08-16 Completed [facility] 00:00:00 [facility] DTaP, Unspecified 2003-08-16 Completed [facility] Formulation 00:00:00 [facility] HIB 4 Dose Schedule 2003-08-16 Completed [facility]ive rs[facility] of 00:00:00 [facility] DTAP 2003-08-16 Completed [facility] 00:00:00 [facility] DTaP, Unspecified 2003-08-16 Completed [facility] Formulation 00:00:00 [facility] HIB 4 Dose Schedule 2003-08-16 Completed [facility] 00:00:00 [facility] DTAP 2003-08-16 Completed [facility] 00:00:00 [facility] DTaP, Unspecified 2003-08-16 Completed [facility] Formulation 00:00:00 [facility] HIB 4 Dose Schedule 2003-08-16 Completed [facility] 00:00:00 [facility] DTAP 2003-08-16 Completed [facility] 00:00:00 [facility] DTaP, Unspecified 2003-08-16 Completed [facility] Formulation 00:00:00 [facility] HIB 4 Dose Schedule 2003-08-16 Completed [facility] 00:00:00 [facility] DTAP 2003-08-16 Completed [facility] 00:00:00 [facility] DTaP, Unspecified 2003-08-16 Completed [facility] Formulation 00:00:00 [facility] HIB 4 Dose Schedule 2003-08-16 Completed [facility] rs[facility] 00:00:00 [facility] DTAP 2003-08-16 Completed [facility] 00:00:00 [facility] DTaP, Unspecified 2003-08-16 Completed [facility] Formulation 00:00:00 [facility] DTAP 2003-08-16 Completed [facility] 00:00:00 [facility] HIB 4 Dose Schedule 2003-08-16 Completed [facility] 00:00:00 [facility] DTAP 2003-08-16 Completed [facility] 00:00:00 [facility] DTaP, Unspecified 2003-08-16 Completed [facility] Formulation 00:00:00 [facility] HIB 4 Dose Schedule 2003-08-16 Completed [facility] rs[facility] of 00:00:00 [facility] DTAP 2003-08-16 Completed [facility] 00:00:00 [facility] DTaP, Unspecified 2003-08-16 Completed [facility] Formulation 00:00:00 [facility] HIB 4 Dose Schedule 2003-08-16 Completed [facility] 00:00:00 [facility] DTAP 2003-08-16 Completed [facility] 00:00:00 [facility] DTaP, Unspecified 2003-08-16 Completed [facility] Formulation 00:00:00 [facility] HIB 4 Dose Schedule 2003-08-16 Completed [facility] of 00:00:00 [facility] DTAP 2003-08-16 Completed [facility] 00:00:00 [facility] DTaP, Unspecified 2003-08-16 Completed [facility] Formulation 00:00:00 [facility] HIB 4 Dose Schedule 2003-08-16 Completed [facility] 00:00:00 [facility] DTAP 2003-08-16 Completed [facility] 00:00:00 [facility] DTAP 2003-08-16 Completed [facility] 00:00:00 [facility] DTAP 2003-08-16 Completed [facility] 00:00:00 [facility] DTAP 2003-08-16 Completed [facility] 00:00:00 [facility] DTAP 2003-08-16 Completed [facility] 00:00:00 [facility] DTAP 2003-08-16 Completed [facility] 00:00:00 [facility] DTAP 2003-08-16 Completed [facility] 00:00:00 [facility] DTAP 2003-08-16 Completed [facility] 00:00:00 [facility] DTAP 2003-08-16 Completed [facility] 00:00:00 [facility] DTAP 2003-08-16 Completed [facility] 00:00:00 [facility] DTAP 2003-08-16 Completed [facility] 00:00:00 [facility] DTAP 2003-08-16 Completed [facility] 00:00:00 [facility] DTAP 2003-08-16 Completed [facility] 00:00:00 [facility] DTAP 2003-08-16 Completed [facility] 00:00:00 [facility] DTAP 2003-08-16 Completed [facility] 00:00:00 [facility] DTAP 2003-08-16 Completed [facility] 00:00:00 [facility] HEPATITIS A 2003-01-10 Completed [facility] 00:00:00 [facility] HEPATITIS A 2003-01-10 Completed [facility] 00:00:00 [facility] HEPATITIS A 2003-01-10 Completed [facility] 00:00:00 [facility] HEPATITIS A 2003-01-10 Completed [facility] 00:00:00 [facility] HEPATITIS A 2003-01-10 Completed [facility] 00:00:00 [facility] HEPATITIS A 2003-01-10 Completed [facility] 00:00:00 [facility] HEPATITIS A 2003-01-10 Completed [facility] 00:00:00 [facility] HEPATITIS A 2003-01-10 Completed [facility] 00:00:00 [facility] HEPATITIS A 2003-01-10 Completed [facility] 00:00:00 [facility] HEPATITIS A 2003-01-10 Completed [facility] 00:00:00 [facility] HEPATITIS A 2003-01-10 Completed [facility] 00:00:00 [facility] HEPATITIS A 2003-01-10 Completed [facility] 00:00:00 [facility] HEPATITIS A 2003-01-10 Completed [facility] 00:00:00 [facility] HEPATITIS A 2003-01-10 Completed [facility] 00:00:00 [facility] HEPATITIS A 2003-01-10 Completed [facility] 00:00:00 [facility] HEPATITIS A 2003-01-10 Completed [facility] 00:00:00 [facility] HEPATITIS A 2003-01-10 Completed [facility] 00:00:00 [facility] HEPATITIS A 2003-01-10 Completed [facility] 00:00:00 [facility] HEPATITIS A 2003-01-10 Completed [facility] 00:00:00 [facility] HEPATITIS A 2003-01-10 Completed [facility] 00:00:00 [facility] HEPATITIS A 2003-01-10 Completed [facility] 00:00:00 [facility] HEPATITIS A 2003-01-10 Completed [facility] 00:00:00 [facility] HEPATITIS A 2003-01-10 Completed [facility] 00:00:00 [facility] HEPATITIS A 2003-01-10 Completed [facility] 00:00:00 [facility] HEPATITIS A 2003-01-10 Completed University [...] HEPATITIS A 2003-01-10 Completed [facility] 00:00:00 [facility] HEPATITIS A 2003-01-10 Completed [facility] 00:00:00 [facility] HEPATITIS A 2003-01-10 Completed [facility] 00:00:00 [facility] HEPATITIS A 2003-01-10 Completed [facility] 00:00:00 [facility] HEPATITIS A 2003-01-10 Completed [facility] 00:00:00 [facility] HEPATITIS A 2003-01-10 Completed [facility] 00:00:00 [facility] HEPATITIS A 2003-01-10 Completed [facility] 00:00:00 [facility] HEPA,NOS 2003-01-10 Completed [facility] 00:00:00 [facility] HEPATITIS A 2003-01-10 Completed [facility] 00:00:00 [facility] HEPA,NOS 2003-01-10 Completed [facility] 00:00:00 [facility] HEPATITIS A 2003-01-10 Completed [facility] 00:00:00 [facility] HEPA,NOS 2003-01-10 Completed [facility] 00:00:00 [facility] HEPATITIS A 2003-01-10 Completed [facility] 00:00:00 [facility] HEPA,NOS 2003-01-10 Completed [facility] 00:00:00 [facility] HEPATITIS A 2003-01-10 Completed [facility] 00:00:00 [facility] HEPA,NOS 2003-01-10 Completed [facility] 00:00:00 [facility] HEPATITIS A 2003-01-10 Completed [facility] 00:00:00 [facility] HEPA,NOS 2003-01-10 Completed [facility] 00:00:00 [facility] HEPATITIS A 2003-01-10 Completed [facility] 00:00:00 [facility] HEPA,NOS 2003-01-10 Completed [facility] 00:00:00 [facility] HEPATITIS A 2003-01-10 Completed [facility] 00:00:00 [facility] HEPATITIS A 2003-01-10 Completed [facility] 00:00:00 [facility] HEPA,NOS 2003-01-10 Completed [facility] 00:00:00 [facility] HEPATITIS A 2003-01-10 Completed [facility] 00:00:00 [facility] HEPA,NOS 2003-01-10 Completed [facility] 00:00:00 [facility] HEPATITIS A 2003-01-10 Completed [facility] 00:00:00 [facility] HEPA,NOS 2003-01-10 Completed [facility] 00:00:00 [facility] HEPATITIS A 2003-01-10 Completed [facility] 00:00:00 [facility] HEPA,NOS 2003-01-10 Completed [facility] 00:00:00 [facility] HEPATITIS A 2003-01-10 Completed [facility] 00:00:00 [facility] HEPA,NOS 2003-01-10 Completed [facility] 00:00:00 [facility] HEPATITIS A 2003-01-10 Completed [facility] 00:00:00 [facility] HEPA,NOS 2003-01-10 Completed [facility] 00:00:00 [facility] HEPATITIS A 2003-01-10 Completed [facility] 00:00:00 [facility] HEPA,NOS 2003-01-10 Completed [facility] 00:00:00 [facility] HEPATITIS A 2003-01-10 Completed [facility] 00:00:00 [facility] HEPATITIS A 2003-01-10 Completed [facility] 00:00:00 [facility] HEPA,NOS 2003-01-10 Completed [facility] 00:00:00 [facility] HEPATITIS A 2003-01-10 Completed [facility] 00:00:00 [facility] HEPA,NOS 2003-01-10 Completed [facility] 00:00:00 [facility] HEPATITIS A 2003-01-10 Completed [facility] 00:00:00 [facility] HEPA,NOS 2003-01-10 Completed [facility] 00:00:00 [facility] HEPATITIS A 2003-01-10 Completed [facility] 00:00:00 [facility] HEPA,NOS 2003-01-10 Completed [facility] 00:00:00 [facility] HEPATITIS A 2003-01-10 Completed [facility] 00:00:00 [facility] HEPATITIS A 2003-01-10 Completed [facility] 00:00:00 [facility] HEPATITIS A 2003-01-10 Completed [facility] 00:00:00 [facility] HEPATITIS A 2003-01-10 Completed [facility] 00:00:00 [facility] HEPATITIS A 2003-01-10 Completed [facility] 00:00:00 [facility] HEPATITIS A 2003-01-10 Completed [facility] 00:00:00 [facility] HEPATITIS A 2003-01-10 Completed [facility] 00:00:00 [facility] HEPATITIS A 2003-01-10 Completed [facility] 00:00:00 [facility] HEPATITIS A 2003-01-10 Completed [facility] 00:00:00 [facility] HEPATITIS A 2003-01-10 Completed [facility] 00:00:00 [facility] HEPATITIS A 2003-01-10 Completed [facility] 00:00:00 [facility] HEPATITIS A 2003-01-10 Completed [facility] 00:00:00 [facility] HEPATITIS A 2003-01-10 Completed [facility] 00:00:00 [facility] HEPATITIS A 2003-01-10 Completed [facility] 00:00:00 [facility] HEPATITIS A 2003-01-10 Completed [facility] 00:00:00 [facility] HEPATITIS A 2003-01-10 Completed [facility] 00:00:00 [facility] DTAP 2002-05-17 Completed [facility] 00:00:00 [facility] MMR 2002-05-17 Completed [facility] 00:00:00 [facility] Polio (IPV/OPV) 2002-05-17 Completed [facility]00 [facility] [facility] Varicella 2002-05-17 Completed [facility] of (varivax)(chicken 00:00:00 [place] [facility] pox) [facility] Polio (IPV/OPV) 2002-05-17 Completed [facility] 00:00:00 [facility] DTAP 2002-05-17 Completed [facility] of 00:00:00 [facility] HIB 4 Dose Schedule 2002-05-17 Completed Unive rsity of 00:00:00 [facility] MMR 2002-05-17 Completed [facility] 00:00:00 [facility] Polio (IPV/OPV) 2002-05-17 Completed [facility] 00:00:00 [facility] Varicella 2002-05-17 Completed [facility] (varivax)(chicken 00:00:00 [place] [facility] pox[facility] Varicella 2002-05-17 Completed [facility] (varivax)(chicken 00:00:00 [place] [facility] pox[facility] DTAP 2002-05-17 Completed [facility] 00:00:00 [facility] HIB 4 Dose Schedule 2002-05-17 Completed Unive rsity of 00:00:00 [facility] MMR 2002-05-17 Completed [facility] 00:00:00 [facility] Polio (IPV/OPV) 2002-05-17 Completed [facility] 00:00:00 [facility] Varicella 2002-05-17 Completed [facility] (varivax)(chicken 00:00:00 [place] [facility] pox[facility] DTAP 2002-05-17 Completed [facility] 00:00:00 [facility] HIB 4 Dose Schedule 2002-05-17 Completed Unive rsity of 00:00:00 [facility] MMR 2002-05-17 Completed [facility] of 00:00:00 [facility] Polio (IPV/OPV) 2002-05-17 Completed [facility] 00:00:00 [facility] Varicella 2002-05-17 Completed [facility] (varivax)(chicken 00:00:00 [place] [facility] pox[facility] DTAP 2002-05-17 Completed [facility] 00:00:00 [facility] HIB 4 Dose Schedule 2002-05-17 Completed Unive rsity of 00:00:00 [facility] MMR 2002-05-17 Completed [facility] 00:00:00 [facility] Polio (IPV/OPV) 2002-05-17 Completed [facility] 00:00:00 [facility] Varicella 2002-05-17 Completed [facility] (varivax)(chicken 00:00:00 [place] [facility] pox) [facility] DTAP 2002-05-17 Completed [facility] 00:00:00 [facility] DTAP 2002-05-17 Completed [facility] 00:00:00 [facility] HIB 4 Dose Schedule 2002-05-17 Completed Unive rsity of 00:00:00 [facility] MMR 2002-05-17 Completed [facility] of 00:00:00 [facility] Polio (IPV/OPV) 2002-05-17 Completed [facility] 00:00:00 [facility] Varicella 2002-05-17 Completed [facility] (varivax)(chicken 00:00:00 [place] [facility] pox) [facility] DTAP 2002-05-17 Completed [facility] 00:00:00 [facility] HIB 4 Dose Schedule 2002-05-17 Completed Unive rsity of 00:00:00 [facility] HIB 4 Dose Schedule 2002-05-17 Completed Unive rsity of 00:00:00 [facility] MMR 2002-05-17 Completed [facility] of 00:00:00 [facility] Polio (IPV/OPV) 2002-05-17 Completed [facility] 00:00:00 [facility] Varicella 2002-05-17 Completed [facility] (varivax)(chicken 00:00:00 [place] [facility] pox[facility] DTAP 2002-05-17 Completed [facility] 00:00:00 [facility] HIB 4 Dose Schedule 2002-05-17 Completed Unive rsity of 00:00:00 [facility] MMR 2002-05-17 Completed [facility] of 00:00:00 [facility] Polio (IPV/OPV) 2002-05-17 Completed [facility] 00:00:00 [facility] Varicella 2002-05-17 Completed [facility] of (varivax)(chicken 00:00:00 [facility] edical pox) Branch DTAP 2002-05-17 Completed [facility] of 00:00:00 [facility] HIB 4 Dose Schedule 2002-05-17 Completed Unive rsity of 00:00:00 [facility] MMR 2002-05-17 Completed [facility] of 00:00:00 [facility] MMR 2002-05-17 Completed [facility] of 00:00:00 [facility] Polio (IPV/OPV) 2002-05-17 Completed [facility] 00:00:00 [facility] Varicella 2002-05-17 Completed [facility] (varivax)(chicken 00:00:00 [place] [facility] pox[facility] DTAP 2002-05-17 Completed [facility] of 00:00:00 [facility] HIB 4 Dose Schedule 2002-05-17 Completed Unive rsity of 00:00:00 [facility] MMR 2002-05-17 Completed [facility] of 00:00:00 [facility] Polio (IPV/OPV) 2002-05-17 Completed [facility] 00:00:00 [facility] Polio (IPV/OPV) 2002-05-17 Completed [facility] 00:00:00 [facility] Varicella 2002-05-17 Completed [facility] (varivax)(chicken 00:00:00 [place] [facility] pox[facility] Varicella 2002-05-17 Completed [facility] (varivax)(chicken 00:00:00 [place] [facility] pox) [facility] DTAP 2002-05-17 Completed [facility] 00:00:00 [facility] HIB 4 Dose Schedule 2002-05-17 Completed Unive rsity of 00:00:00 [facility] MMR 2002-05-17 Completed [facility] of 00:00:00 [facility] Polio (IPV/OPV) 2002-05-17 Completed [facility] 00:00:00 [facility] Varicella 2002-05-17 Completed [facility] (varivax)(chicken 00:00:00 [place] [facility] pox) [facility] DTAP 2002-05-17 Completed [facility] 00:00:00 [facility] HIB 4 Dose Schedule 2002-05-17 Completed Unive rsity of 00:00:00 [facility] MMR 2002-05-17 Completed [facility] of 00:00:00 [facility] Polio (IPV/OPV) 2002-05-17 Completed [facility] 00:00:00 [facility] Varicella 2002-05-17 Completed [facility] (varivax)(chicken 00:00:00 [place] [facility] pox[facility] DTAP 2002-05-17 Completed [facility] of 00:00:00 [facility] HIB 4 Dose Schedule 2002-05-17 Completed Unive rsity of 00:00:00 [facility] MMR 2002-05-17 Completed [facility] of 00:00:00 [facility] DTAP 2002-05-17 Completed [facility] of 00:00:00 [facility] Polio (IPV/OPV) 2002-05-17 Completed [facility] 00:00:00 [facility] Varicella 2002-05-17 Completed [facility] (varivax)(chicken 00:00:00 [place] [facility] pox[facility] DTAP 2002-05-17 Completed [facility] 00:00:00 [facility] HIB 4 Dose Schedule 2002-05-17 Completed Unive rsity of 00:00:00 [facility] HIB 4 Dose Schedule 2002-05-17 Completed Unive rsity of 00:00:00 [facility] MMR 2002-05-17 Completed [facility] of 00:00:00 [facility] Polio (IPV/OPV) 2002-05-17 Completed [facility] 00:00:00 [facility] Varicella 2002-05-17 Completed [facility] (varivax)(chicken 00:00:00 [place] [facility] pox[facility] HIB 4 Dose Schedule 2002-05-17 Completed Unive rsity of 00:00:00 [facility] DTAP 2002-05-17 Completed [facility] of 00:00:00 [facility] HIB 4 Dose Schedule 2002-05-17 Completed Unive rsity of 00:00:00 [facility] MMR 2002-05-17 Completed [facility] of 00:00:00 [facility] Polio (IPV/OPV) 2002-05-17 Completed [facility] 00:00:00 [facility] Varicella 2002-05-17 Completed [facility] (varivax)(chicken 00:00:00 [place] [facility] pox) [facility] DTAP 2002-05-17 Completed [facility] of 00:00:00 [facility] HIB 4 Dose Schedule 2002-05-17 Completed Unive rsity of 00:00:00 [facility] MMR 2002-05-17 Completed [facility] of 00:00:00 [facility] Polio (IPV/OPV) 2002-05-17 Completed [facility] 00:00:00 [facility] Varicella 2002-05-17 Completed [facility] (varivax)(chicken 00:00:00 [place] [facility] pox) [facility] DTAP 2002-05-17 Completed [facility] 00:00:00 [facility] MMR 2002-05-17 Completed [facility] of 00:00:00 [facility] HIB 4 Dose Schedule 2002-05-17 Completed Unive rsity of 00:00:00 [facility] MMR 2002-05-17 Completed [facility] of 00:00:00 [facility] Polio (IPV/OPV) 2002-05-17 Completed [facility] 00:00:00 [facility] Varicella 2002-05-17 Completed [facility] (varivax)(chicken 00:00:00 [place] [facility] pox) [facility] DTAP 2002-05-17 Completed [facility] 00:00:00 [facility] HIB 4 Dose Schedule 2002-05-17 Completed Unive rsity of 00:00:00 [facility] MMR 2002-05-17 Completed [facility] of 00:00:00 [facility] Polio (IPV/OPV) 2002-05-17 Completed [facility] 00:00:00 [facility] Polio (IPV/OPV) 2002-05-17 Completed [facility] 00:00:00 [facility] Varicella 2002-05-17 Completed [facility] (varivax)(chicken 00:00:00 [place] [facility] pox) [facility] DTAP 2002-05-17 Completed [facility] 00:00:00 [facility] HIB 4 Dose Schedule 2002-05-17 Completed Unive rsity of 00:00:00 [facility] MMR 2002-05-17 Completed [facility] of 00:00:00 [facility] Varicella 2002-05-17 Completed [facility] (varivax)(chicken 00:00:00 [place] [facility] pox) Branch Polio (IPV/OPV) 2002-05-17 Completed [facility] 00:00:00 [facility] Varicella 2002-05-17 Completed [facility] (varivax)(chicken 00:00:00 [place] [facility] pox) Branch DTAP 2002-05-17 Completed [facility] 00:00:00 [facility] HIB 4 Dose Schedule 2002-05-17 Completed Unive rsity of 00:00:00 [facility] MMR 2002-05-17 Completed [facility] of 00:00:00 [facility] Polio (IPV/OPV) 2002-05-17 Completed [facility] 00:00:00 [facility] Varicella 2002-05-17 Completed [facility] (varivax)(chicken 00:00:00 [place] [facility] pox) [facility] DTAP 2002-05-17 Completed [facility] 00:00:00 [facility] HIB 4 Dose Schedule 2002-05-17 Completed Unive rsity of 00:00:00 [facility] MMR 2002-05-17 Completed [facility] of 00:00:00 [facility] Polio (IPV/OPV) 2002-05-17 Completed [facility] 00:00:00 [facility] Varicella 2002-05-17 Completed [facility] (varivax)(chicken 00:00:00 [place] [facility] pox) Branch DTAP 2002-05-17 Completed [facility] 00:00:00 [facility] HIB 4 Dose Schedule 2002-05-17 Completed Unive rsity of 00:00:00 [facility] MMR 2002-05-17 Completed [facility] of 00:00:00 [facility] Polio (IPV/OPV) 2002-05-17 Completed Univers[facility] 00:00:00 [facility] Varicella 2002-05-17 Completed [facility] (varivax)(chicken 00:00:00 [place] [facility] pox) Branch DTAP 2002-05-17 Completed [facility] of 00:00:00 [facility] HIB 4 Dose Schedule 2002-05-17 Completed Unive rsity of 00:00:00 [facility] MMR 2002-05-17 Completed [facility] of 00:00:00 [facility] Polio (IPV/OPV) 2002-05-17 Completed [facility] 00:00:00 [facility] Varicella 2002-05-17 Completed [facility] of (varivax)(chicken 00:00:00 [place] [facility] pox) Branch DTAP 2002-05-17 Completed [facility] of 00:00:00 [facility] HIB 4 Dose Schedule 2002-05-17 Completed Unive rsity of 00:00:00 [facility] MMR 2002-05-17 Completed [facility] of 00:00:00 [facility] Polio (IPV/OPV) 2002-05-17 Completed [facility] 00:00:00 [facility] Varicella 2002-05-17 Completed [facility] (varivax)(chicken 00:00:00 [place] [facility] pox) Branch DTAP 2002-05-17 Completed [facility] of 00:00:00 [facility] DTAP 2002-05-17 Completed [facility] of 00:00:00 [facility] HIB 4 Dose Schedule 2002-05-17 Completed Unive rsity of 00:00:00 [facility] MMR 2002-05-17 Completed [facility] of 00:00:00 [facility] Polio (IPV/OPV) 2002-05-17 Completed Univers[facility] 00:00:00 [facility] Varicella 2002-05-17 Completed [facility] of (varivax)(chicken 00:00:00 [place] [facility] pox) Branch HIB 4 Dose Schedule 2002-05-17 Completed Unive rsity of 00:00:00 [facility] DTAP 2002-05-17 Completed University of 00:00:00 [facility] HIB 4 Dose Schedule 2002-05-17 Completed Unive rsity of 00:00:00 [facility] MMR 2002-05-17 Completed [facility] of 00:00:00 [facility] Polio (IPV/OPV) 2002-05-17 Completed [facility] 00:00:00 [facility] Varicella 2002-05-17 Completed [facility] of (varivax)(chicken 00:00:00 [place] [facility] pox) [facility] DTAP 2002-05-17 Completed [facility] 00:00:00 [facility] HIB 4 Dose Schedule 2002-05-17 Completed Unive rsity of 00:00:00 [facility] MMR 2002-05-17 Completed [facility] of 00:00:00 [facility] Polio (IPV/OPV) 2002-05-17 Completed [facility] 00:00:00 [facility] Varicella 2002-05-17 Completed [facility] (varivax)(chicken 00:00:00 [place] [facility] pox) Branch MMR 2002-05-17 Completed [facility] of 00:00:00 [facility] DTAP 2002-05-17 Completed [facility] of 00:00:00 [facility] HIB 4 Dose Schedule 2002-05-17 Completed Unive rsity of 00:00:00 [facility] MMR 2002-05-17 Completed [facility] of 00:00:00 [facility] Polio (IPV/OPV) 2002-05-17 Completed [facility] 00:00:00 [facility] Varicella 2002-05-17 Completed [facility] of (varivax)(chicken 00:00:00 [place] [facility] pox) Branch Polio (IPV/OPV) 2002-05-17 Completed [facility] 00:00:00 [facility] DTAP 2002-05-17 Completed [facility] of 00:00:00 [facility] Varicella 2002-05-17 Completed [facility] of (varivax)(chicken 00:00:00 [place] [facility] pox) Branch HIB 4 Dose Schedule 2002-05-17 Completed Unive rsity of 00:00:00 [facility] MMR 2002-05-17 Completed [facility] of 00:00:00 [facility] Polio (IPV/OPV) 2002-05-17 Completed [facility] 00:00:00 [facility] Varicella 2002-05-17 Completed [facility] of (varivax)(chicken 00:00:00 [place] [facility] pox) Branch DTAP 2002-05-17 Completed [facility] of 00:00:00 [facility] HIB 4 Dose Schedule 2002-05-17 Completed Unive rsity of 00:00:00 [facility] MMR 2002-05-17 Completed [facility] of 00:00:00 [facility] Polio (IPV/OPV) 2002-05-17 Completed [facility] 00:00:00 [facility] Varicella 2002-05-17 Completed [facility] of (varivax)(chicken 00:00:00 [place] [facility] pox) Branch DTAP 2002-05-17 Completed [facility] 00:00:00 [facility] HIB 4 Dose Schedule 2002-05-17 Completed Unive rsity of 00:00:00 [facility] MMR 2002-05-17 Completed [facility] of 00:00:00 [facility] Polio (IPV/OPV) 2002-05-17 Completed Univers[facility] 00:00:00 [facility] Varicella 2002-05-17 Completed [facility] of (varivax)(chicken 00:00:00 [place] [facility] pox) Branch DTAP 2002-05-17 Completed [facility] of 00:00:00 [facility] HIB 4 Dose Schedule 2002-05-17 Completed Unive rsity of 00:00:00 [facility] MMR 2002-05-17 Completed [facility] of 00:00:00 [facility] Polio (IPV/OPV) 2002-05-17 Completed [facility] 00:00:00 [facility] MMR 2002-05-17 Completed [facility] of 00:00:00 [facility] Varicella 2002-05-17 Completed [facility] of (varivax)(chicken 00:00:00 [place] [facility] pox) Branch DTAP 2002-05-17 Completed [facility] 00:00:00 [facility] HIB 4 Dose Schedule 2002-05-17 Completed Unive rsity of 00:00:00 [facility] MMR 2002-05-17 Completed [facility] of 00:00:00 [facility] Polio (IPV/OPV) 2002-05-17 Completed [facility] 00:00:00 [facility] DTAP 2002-05-17 Completed [facility] of 00:00:00 [facility] Varicella 2002-05-17 Completed [facility] of (varivax)(chicken 00:00:00 [place] [facility] pox) Branch DTAP 2002-05-17 Completed [facility] of 00:00:00 [facility] HIB 4 Dose Schedule 2002-05-17 Completed Unive rsity of 00:00:00 [facility] MMR 2002-05-17 Completed [facility] of 00:00:00 [facility] Polio (IPV/OPV) 2002-05-17 Completed [facility] 00:00:00 [facility] Varicella 2002-05-17 Completed [facility] of (varivax)(chicken 00:00:00 [place] [facility] pox) Branch HIB 4 Dose Schedule 2002-05-17 Completed Unive rsity of 00:00:00 [facility] DTAP 2002-05-17 Completed [facility] of 00:00:00 [facility] HIB 4 Dose Schedule 2002-05-17 Completed Unive rsity of 00:00:00 [facility] MMR 2002-05-17 Completed [facility] of 00:00:00 [facility] Polio (IPV/OPV) 2002-05-17 Completed Univers[facility] 00:00:00 [facility] Varicella 2002-05-17 Completed [facility] of (varivax)(chicken 00:00:00 [place] [facility] pox) Branch DTAP 2002-05-17 Completed [facility] of 00:00:00 [facility] HIB 4 Dose Schedule 2002-05-17 Completed Unive rsity of 00:00:00 [facility] MMR 2002-05-17 Completed [facility] of 00:00:00 [facility] Polio (IPV/OPV) 2002-05-17 Completed [facility] 00:00:00 [facility] MMR 2002-05-17 Completed [facility] of 00:00:00 [facility] Varicella 2002-05-17 Completed [facility] of (varivax)(chicken 00:00:00 [place] [facility] pox) [facility] DTAP 2002-05-17 Completed [facility] 00:00:00 [facility] HIB 4 Dose Schedule 2002-05-17 Completed Unive rsity of 00:00:00 [facility] Polio (IPV/OPV) 2002-05-17 Completed [facility] 00:00:00 [facility] MMR 2002-05-17 Completed [facility] of 00:00:00 [facility] Polio (IPV/OPV) 2002-05-17 Completed [facility] of 00:00:00 [facility] Varicella 2002-05-17 Completed [facility] of (varivax)(chicken 00:00:00 [place] [facility] pox) [facility] DTaP, Unspecified 2002-05-17 Completed Univers ity of Formulation 00:00:00 [facility] Varicella 2002-05-17 Completed [facility] of (varivax)(chicken 00:00:00 [place] [facility] IPV 2002-05-17 Completed [facility] of 00:00:00 [facility] DTAP 2002-05-17 Completed [facility] of 00:00:00 [facility] HIB 4 Dose Schedule 2002-05-17 Completed Unive rsity of 00:00:00 [facility] MMR 2002-05-17 Completed [facility] of 00:00:00 [facility] Polio (IPV/OPV) 2002-05-17 Completed [facility] 00:00:00 [facility] Varicella 2002-05-17 Completed [facility] of (varivax)(chicken 00:00:00 [place] [facility] pox[facility] DTaP, Unspecified 2002-05-17 Completed Univers ity of Formulation 00:00:00 [facility] IPV 2002-05-17 Completed [facility] of 00:00:00 [facility] DTAP 2002-05-17 Completed [facility] of 00:00:00 [facility] HIB 4 Dose Schedule 2002-05-17 Completed Unive rsity of 00:00:00 [facility] MMR 2002-05-17 Completed [facility] of 00:00:00 [facility] Polio (IPV/OPV) 2002-05-17 Completed [facility] 00:00:00 [facility] Varicella 2002-05-17 Completed [facility] of (varivax)(chicken 00:00:00 [place] [facility] pox) Branch DTaP, Unspecified 2002-05-17 Completed Univers ity of Formulation 00:00:00 [facility] IPV 2002-05-17 Completed [facility] of 00:00:00 [facility] DTAP 2002-05-17 Completed [facility] of 00:00:00 [facility] HIB 4 Dose Schedule 2002-05-17 Completed Unive rsity of 00:00:00 [facility] MMR 2002-05-17 Completed [facility] of 00:00:00 [facility] Polio (IPV/OPV) 2002-05-17 Completed [facility] 00:00:00 [facility] Varicella 2002-05-17 Completed [facility] of (varivax)(chicken 00:00:00 [place] [facility] pox) [facility] DTaP, Unspecified 2002-05-17 Completed Univers ity of Formulation 00:00:00 [facility] IPV 2002-05-17 Completed [facility] of 00:00:00 [facility] Polio (IPV/OPV) 2002-05-17 Completed [facility] 00[facility]00[facility]00 [facility] DTAP 2002-05-17 Completed [facility] 00:00:00 [facility] HIB 4 Dose Schedule 2002-05-17 Completed [facility] 00:00:00 [facility] MMR 2002-05-17 Completed [facility] 00:00:00 [facility] Polio (IPV/OPV) 2002-05-17 Completed [facility] 00:00:00 [facility] Varicella 2002-05-17 Completed [facility] of (varivax)(chicken 00:00:00 [place] [facility] DTaP, Unspecified 2002-05-17 Completed [facility] Formulation 00:00:00 [facility] IPV 2002-05-17 Completed [facility] 00:00:00 [facility] DTAP 2002-05-17 Completed [facility] 00:00:00 [facility] HIB 4 Dose Schedule 2002-05-17 Completed [facility] 00:00:00 [facility] MMR 2002-05-17 Completed [facility] 00:00:00 [facility] Polio (IPV/OPV) 2002-05-17 Completed [facility] 00:00:00 [facility] Varicella 2002-05-17 Completed [facility] (varivax)(chicken 00:00:00 [place] [facility] DTaP, Unspecified 2002-05-17 Completed [facility] Formulation 00:00:00 [facility] IPV 2002-05-17 Completed [facility] 00:00:00 [facility] DTAP 2002-05-17 Completed [facility] 00:00:00 [facility] HIB 4 Dose Schedule 2002-05-17 Completed [facility] 00:00:00 [facility] DTAP 2002-05-17 Completed [facility] 00:00:00 [facility] MMR 2002-05-17 Completed [facility] 00:00:00 [facility] Polio (IPV/OPV) 2002-05-17 Completed [facility] 00:00:00 [facility] Varicella 2002-05-17 Completed [facility] (varivax)(chicken 00:00:00 [place] [facility] DTaP, Unspecified 2002-05-17 Completed [facility] Formulation 00:00:00 [facility] IPV 2002-05-17 Completed [facility] 00:00:00 [facility] HIB 4 Dose Schedule 2002-05-17 Completed [facility] 00:00:00 [facility] DTAP 2002-05-17 Completed [facility] 00:00:00 [facility] HIB 4 Dose Schedule 2002-05-17 Completed [facility] 00:00:00 [facility] MMR 2002-05-17 Completed [facility] 00:00:00 [facility] Polio (IPV/OPV) 2002-05-17 Completed [facility] 00:00:00 [facility] Varicella 2002-05-17 Completed [facility] (varivax)(chicken 00:00:00 [place] [facility] DTaP, Unspecified 2002-05-17 Completed [facility] Formulation 00:00:00 [facility] IPV 2002-05-17 Completed [facility] 00:00:00 [facility] DTAP 2002-05-17 Completed [facility] 00:00:00 [facility] HIB 4 Dose Schedule 2002-05-17 Completed [facility] 00:00:00 [facility] MMR 2002-05-17 Completed [facility] 00:00:00 [facility] MMR 2002-05-17 Completed [facility] 00:00:00 [facility] Polio (IPV/OPV) 2002-05-17 Completed [facility] 00:00:00 [facility] Varicella 2002-05-17 Completed [facility] (varivax)(chicken 00:00:00 [place] [facility]ox[facility] DTaP, Unspecified 2002-05-17 Completed [facility] Formulation 00:00:00 [facility] IPV 2002-05-17 Completed [facility] 00:00:00 [facility] Varicella 2002-05-17 Completed [facility] (varivax)(chicken 00:00:00 [place] [facility] Polio (IPV/OPV) 2002-05-17 Completed [facility] 00:00:00 [facility] DTAP 2002-05-17 Completed [facility] 00:00:00 [facility] HIB 4 Dose Schedule 2002-05-17 Completed [facility] 00:00:00 [facility] MMR 2002-05-17 Completed [facility] 00:00:00 [facility] Polio (IPV/OPV) 2002-05-17 Completed [facility] 00:00:00 [facility] Varicella 2002-05-17 Completed [facility] (varivax)(chicken 00:00:00 [place] [facility] Varicella 2002-05-17 Completed [facility] (varivax)(chicken 00:00:00 [place] [facility]ox[facility] DTaP, Unspecified 2002-05-17 Completed [facility] Formulation 00:00:00 [facility] IPV 2002-05-17 Completed [facility] 00:00:00 [facility] DTAP 2002-05-17 Completed [facility] 00:00:00 [facility] HIB 4 Dose Schedule 2002-05-17 Completed [facility] 00:00:00 [facility] MMR 2002-05-17 Completed [facility] 00:00:00 [facility] Polio (IPV/OPV) 2002-05-17 Completed [facility] 00:00:00 [facility] Varicella 2002-05-17 Completed [facility] (varivax)(chicken 00:00:00 [place] [facility]ox[facility] DTaP, Unspecified 2002-05-17 Completed [facility] Formulation 00:00:00 [facility] IPV 2002-05-17 Completed [facility] 00:00:00 [facility] DTAP 2002-05-17 Completed [facility] 00:00:00 [facility] HIB 4 Dose Schedule 2002-05-17 Completed [facility] 00:00:00 [facility] MMR 2002-05-17 Completed [facility] 00:00:00 [facility] Polio (IPV/OPV) 2002-05-17 Completed [facility] 00:00:00 [facility] Varicella 2002-05-17 Completed [facility] (varivax)(chicken 00:00:00 [place] [facility] pox[facility] DTaP, Unspecified 2002-05-17 Completed [facility] Formulation 00:00:00 [facility] IPV 2002-05-17 Completed [facility] 00:00:00 [facility] DTAP 2002-05-17 Completed [facility] 00:00:00 [facility] HIB 4 Dose Schedule 2002-05-17 Completed [facility] 00:00:00 [facility] MMR 2002-05-17 Completed [facility] 00:00:00 [facility] Polio (IPV/OPV) 2002-05-17 Completed [facility] 00:00:00 [facility] Varicella 2002-05-17 Completed [facility] (varivax)(chicken 00:00:00 [place] [facility] pox[facility] DTaP, Unspecified 2002-05-17 Completed [facility] Formulation 00:00:00 [facility] IPV 2002-05-17 Completed [facility] 00:00:00 [facility] DTAP 2002-05-17 Completed [facility] 00:00:00 [facility] HIB 4 Dose Schedule 2002-05-17 Completed [facility] 00:00:00 [facility] MMR 2002-05-17 Completed [facility] 00:00:00 [facility] Polio (IPV/OPV) 2002-05-17 Completed [facility] 00:00:00 [facility] DTAP 2002-05-17 Completed [facility] 00:00:00 [facility] Varicella 2002-05-17 Completed [facility] (varivax)(chicken 00:00:00 [place] [facility]ox[facility] DTaP, Unspecified 2002-05-17 Completed [facility] Formulation 00:00:00 [facility] IPV 2002-05-17 Completed [facility] 00:00:00 [facility] DTAP 2002-05-17 Completed [facility] 00:00:00 [facility] HIB 4 Dose Schedule 2002-05-17 Completed [facility] 00:00:00 [facility] HIB 4 Dose Schedule 2002-05-17 Completed [facility] 00:00:00 [facility] MMR 2002-05-17 Completed [facility] 00:00:00 [facility] Polio (IPV/OPV) 2002-05-17 Completed [facility] 00:00:00 [facility] Varicella 2002-05-17 Completed [facility] (varivax)(chicken 00:00:00 [place] [facility]ox[facility] DTaP, Unspecified 2002-05-17 Completed [facility] Formulation 00:00:00 [facility] IPV 2002-05-17 Completed [facility] 00:00:00 [facility] DTAP 2002-05-17 Completed [facility] 00:00:00 [facility] HIB 4 Dose Schedule 2002-05-17 Completed [facility] 00:00:00 [facility] MMR 2002-05-17 Completed [facility] 00:00:00 [facility] Polio (IPV/OPV) 2002-05-17 Completed [facility] 00:00:00 [facility] Varicella 2002-05-17 Completed [facility] (varivax)(chicken 00:00:00 [place] [facility] pox[facility] MMR 2002-05-17 Completed [facility] 00:00:00 [facility] DTaP, Unspecified 2002-05-17 Completed [facility] Formulation 00:00:00 [facility] IPV 2002-05-17 Completed [facility] 00:00:00 [facility] DTAP 2002-05-17 Completed [facility] 00:00:00 [facility] HIB 4 Dose Schedule 2002-05-17 Completed [facility] 00:00:00 [facility] Polio (IPV/OPV) 2002-05-17 Completed [facility] 00:00:00 [facility] MMR 2002-05-17 Completed [facility] 00:00:00 [facility] Polio (IPV/OPV) 2002-05-17 Completed [facility] 00:00:00 [facility] Varicella 2002-05-17 Completed [facility] (varivax)(chicken 00:00:00 [place] [facility] pox) [facility] DTaP, Unspecified 2002-05-17 Completed [facility] Formulation 00:00:00 [facility] Varicella 2002-05-17 Completed [facility] (varivax)(chicken 00:00:00 [place] [facility] pox) [facility] IPV 2002-05-17 Completed [facility] 00:00:00 [facility] DTAP 2002-05-17 Completed [facility] 00:00:00 [facility] HIB 4 Dose Schedule 2002-05-17 Completed [facility] 00:00:00 [facility] MMR 2002-05-17 Completed [facility] 00:00:00 [facility] Polio (IPV/OPV) 2002-05-17 Completed [facility] 00:00:00 [facility] Varicella 2002-05-17 Completed [facility] (varivax)(chicken 00:00:00 [place] [facility] pox) [facility] DTaP, Unspecified 2002-05-17 Completed [facility] Formulation 00:00:00 [facility] IPV 2002-05-17 Completed [facility] 00:00:00 [facility] DTAP 2002-05-17 Completed [facility] 00:00:00 [facility] HIB 4 Dose Schedule 2002-05-17 Completed [facility] 00:00:00 [facility] MMR 2002-05-17 Completed [facility] 00:00:00 [facility] Polio (IPV/OPV) 2002-05-17 Completed [facility] 00:00:00 [facility] Varicella 2002-05-17 Completed [facility] (varivax)(chicken 00:00:00 [place] [facility] pox[facility] DTAP 2002-05-17 Completed [facility] 00:00:00 [facility] HIB 4 Dose Schedule 2002-05-17 Completed [facility] 00:00:00 [facility] MMR 2002-05-17 Completed [facility] 00:00:00 [facility] Polio (IPV/OPV) 2002-05-17 Completed [facility] 00:00:00 [facility] Varicella 2002-05-17 Completed [facility] (varivax)(chicken 00:00:00 [place] [facility] pox[facility] DTAP 2002-05-17 Completed [facility] 00:00:00 [facility] DTAP 2002-05-17 Completed [facility] 00:00:00 [facility] HIB 4 Dose Schedule 2002-05-17 Completed [facility] 00:00:00 [facility] MMR 2002-05-17 Completed [facility] 00:00:00 [facility] Polio (IPV/OPV) 2002-05-17 Completed [facility] 00:00:00 [facility] Varicella 2002-05-17 Completed [facility] of (varivax)(chicken 00:00:00 [facility] edical pox) Branch HIB 4 Dose Schedule 2002-05-17 Completed [facility] rs[facility] 00:00:00 [facility] DTAP 2002-05-17 Completed [facility] 00:00:00 [facility] HIB 4 Dose Schedule 2002-05-17 Completed [facility] 00:00:00 [facility] MMR 2002-05-17 Completed [facility] 00:00:00 [facility] Polio (IPV/OPV) 2002-05-17 Completed [facility] 00:00:00 [facility] Varicella 2002-05-17 Completed [facility] (varivax)(chicken 00:00:00 [place] [facility] pox) [facility] DTAP 2002-05-17 Completed [facility] 00:00:00 [facility] HIB 4 Dose Schedule 2002-05-17 Completed [facility] 00:00:00 [facility] MMR 2002-05-17 Completed [facility] 00:00:00 [facility] Polio (IPV/OPV) 2002-05-17 Completed [facility] 00:00:00 [facility] Varicella 2002-05-17 Completed [facility] (varivax)(chicken 00:00:00 [place] [facility] pox) [facility] MMR 2002-05-17 Completed [facility] 00:00:00 [facility] DTAP 2002-05-17 Completed [facility] 00:00:00 [facility] HIB 4 Dose Schedule 2002-05-17 Completed [facility] 00:00:00 [facility] MMR 2002-05-17 Completed [facility] 00:00:00 [facility] Polio (IPV/OPV) 2002-05-17 Completed [facility] 00:00:00 [facility] Varicella 2002-05-17 Completed [facility] (varivax)(chicken 00:00:00 [place] [facility] pox) [facility] Polio (IPV/OPV) 2002-05-17 Completed [facility] 00:00:00 [facility] DTAP 2002-05-17 Completed [facility] 00:00:00 [facility] HIB 4 Dose Schedule 2002-05-17 Completed [facility] 00:00:00 [facility] MMR 2002-05-17 Completed [facility] 00:00:00 [facility] Polio (IPV/OPV) 2002-05-17 Completed [facility] 00:00:00 [facility] Varicella 2002-05-17 Completed [facility] (varivax)(chicken 00:00:00 [place] [facility] pox) [facility] Varicella 2002-05-17 Completed [facility] (varivax)(chicken 00:00:00 [place] [facility] pox) [facility] DTAP 2002-05-17 Completed [facility] 00:00:00 [facility] HIB 4 Dose Schedule 2002-05-17 Completed [facility] 00:00:00 [facility] MMR 2002-05-17 Completed [facility] 00:00:00 [facility] Polio (IPV/OPV) 2002-05-17 Completed [facility] 00:00:00 [facility] Varicella 2002-05-17 Completed [facility] (varivax)(chicken 00:00:00 [place] [facility] pox) [facility] DTAP 2002-05-17 Completed [facility] 00:00:00 [facility] HIB 4 Dose Schedule 2002-05-17 Completed [facility] 00:00:00 [facility] MMR 2002-05-17 Completed [facility] 00:00:00 [facility] Polio (IPV/OPV) 2002-05-17 Completed [facility] 00:00:00 [facility] Varicella 2002-05-17 Completed [facility] (varivax)(chicken 00:00:00 [place] [facility] pox) [facility] DTAP 2002-05-17 Completed [facility] 00:00:00 [facility] HIB 4 Dose Schedule 2002-05-17 Completed [facility] rs[facility] 00:00:00 [facility] MMR 2002-05-17 Completed [facility] 00:00:00 [facility] Polio (IPV/OPV) 2002-05-17 Completed [facility] 00:00:00 [facility] Varicella 2002-05-17 Completed [facility] (varivax)(chicken 00:00:00 [place] [facility] pox) [facility] DTAP 2002-05-17 Completed [facility] 00:00:00 [facility] HIB 4 Dose Schedule 2002-05-17 Completed [facility] 00:00:00 [facility] MMR 2002-05-17 Completed [facility] 00:00:00 [facility] Polio (IPV/OPV) 2002-05-17 Completed [facility] 00:00:00 [facility] Varicella 2002-05-17 Completed [facility] of (varivax)(chicken 00:00:00 [place] [facility] pox[facility] DTAP 2002-05-17 Completed [facility] 00:00:00 [facility] HIB 4 Dose Schedule 2002-05-17 Completed [facility] rs[facility] 00:00:00 [facility] MMR 2002-05-17 Completed [facility] 00:00:00 [facility] Polio (IPV/OPV) 2002-05-17 Completed [facility] 00:00:00 [facility] DTAP 2002-05-17 Completed [facility] 00:00:00 [facility] Varicella 2002-05-17 Completed [facility] (varivax)(chicken 00:00:00 [place] [facility] pox) [facility] HIB 4 Dose Schedule 2002-05-17 Completed [facility] 00:00:00 [facility] DTAP 2002-05-17 Completed [facility] 00:00:00 [facility] HIB 4 Dose Schedule 2002-05-17 Completed [facility] 00:00:00 [facility] MMR 2002-05-17 Completed [facility] 00:00:00 [facility] Polio (IPV/OPV) 2002-05-17 Completed [facility] 00:00:00 [facility] Varicella 2002-05-17 Completed [facility] of (varivax)(chicken 00:00:00 [place] [facility] pox) [facility] MMR 2002-05-17 Completed [facility] 00:00:00 [facility] DTAP 2002-05-17 Completed [facility] 00:00:00 [facility] [place] [facility] HIB 4 Dose Schedule 2002-05-17 Completed [facility] 00:00:00 [place] [facility] Hep B, Adol or Pedi 2001-04-22 Completed Unive rsity of Dosage 00:00:00 [facility] Polio (IPV/OPV) 2001-04-22 Completed [facility] 00:00:00 [facility] Polio (IPV/OPV) 2001-04-22 Completed [facility] 00:00:00 [facility] DTAP 2001-04-22 Completed [facility] 00:00:00 [facility] HIB 4 Dose Schedule 2001-04-22 Completed [facility] rs[facility] 00:00:00 [facility] Hep B, Adol or Pedi 2001-04-22 Completed [facility]ive rsity of Dosage 00:00:00 [facility] Polio (IPV/OPV) 2001-04-22 Completed [facility] 00:00:00 [facility] DTAP 2001-04-22 Completed [facility] 00:00:00 [facility] HIB 4 Dose Schedule 2001-04-22 Completed [facility] of 00:00:00 [facility] Hep B, Adol or Pedi 2001-04-22 Completed [facility]ive rsity of Dosage 00:00:00 [facility] Polio (IPV/OPV) 2001-04-22 Completed [facility] 00:00:00 [facility] DTAP 2001-04-22 Completed [facility] 00:00:00 [facility] HIB 4 Dose Schedule 2001-04-22 Completed [facility] 00:00:00 [facility] Hep B, Adol or Pedi 2001-04-22 Completed Unive rsity of Dosage 00:00:00 [facility] Polio (IPV/OPV) 2001-04-22 Completed [facility] 00:00:00 [facility] DTAP 2001-04-22 Completed [facility] 00:00:00 [facility] HIB 4 Dose Schedule 2001-04-22 Completed [facility] rs[facility] of 00:00:00 [facility] Hep B, Adol or Pedi 2001-04-22 Completed [facility]ive rsity of Dosage 00:00:00 [facility] Polio (IPV/OPV) 2001-04-22 Completed [facility] 00:00:00 [place] [facility] DTAP 2001-04-22 Completed [facility] 00:00:00 [place] [facility] DTAP 2001-04-22 Completed [facility] 00:00:00 [facility] HIB 4 Dose Schedule 2001-04-22 Completed [facility] of 00:00:00 [facility] Hep B, Adol or Pedi 2001-04-22 Completed [facility]ive rs[facility] of Dosage 00:00:00 [facility] Polio (IPV/OPV) 2001-04-22 Completed [facility] 00:00:00 [facility] HIB 4 Dose Schedule 2001-04-22 Completed [facility] rs[facility] of 00:00:00 [facility] DTAP 2001-04-22 Completed [facility] 00:00:00 [facility] HIB 4 Dose Schedule 2001-04-22 Completed [facility] rs[facility] of 00:00:00 [facility] Hep B, Adol or Pedi 2001-04-22 Completed [facility] rsity of Dosage 00:00:00 [facility] Polio (IPV/OPV) 2001-04-22 Completed [facility] 00:00:00 [facility] DTAP 2001-04-22 Completed [facility] 00:00:00 [facility] HIB 4 Dose Schedule 2001-04-22 Completed [facility] 00:00:00 [facility] Hep B, Adol or Pedi 2001-04-22 Completed [facility] of Dosage 00:00:00 [facility] Polio (IPV/OPV) 2001-04-22 Completed [facility] 00:00:00 [facility] Hep B, Adol or Pedi 2001-04-22 Completed [facility] of Dosage 00:00:00 [facility] DTAP 2001-04-22 Completed [facility] 00:00:00 [facility] HIB 4 Dose Schedule 2001-04-22 Completed [facility] 00:00:00 [facility] Hep B, Adol or Pedi 2001-04-22 Completed [facility] of Dosage 00:00:00 [facility] Polio (IPV/OPV) 2001-04-22 Completed [facility] 00:00:00 [facility] DTAP 2001-04-22 Completed [facility] 00:00:00 [facility] HIB 4 Dose Schedule 2001-04-22 Completed [facility] 00:00:00 [facility] Polio (IPV/OPV) 2001-04-22 Completed [facility] 00:00:00 [facility] Hep B, Adol or Pedi 2001-04-22 Completed [facility] of Dosage 00:00:00 [facility] Polio (IPV/OPV) 2001-04-22 Completed [facility] 00:00:00 [facility] DTAP 2001-04-22 Completed [facility] 00:00:00 [facility] HIB 4 Dose Schedule 2001-04-22 Completed [facility] 00:00:00 [facility] Hep B, Adol or Pedi 2001-04-22 Completed [facility] of Dosage 00:00:00 [facility] Polio (IPV/OPV) 2001-04-22 Completed [facility]00 [facility] HIB 4 Dose Schedule 2001-04-22 Completed [facility] 00:00:00 [facility] DTAP 2001-04-22 Completed [facility] 00:00:00 [facility] HIB 4 Dose Schedule 2001-04-22 Completed [facility] 00:00:00 [facility] Hep B, Adol or Pedi 2001-04-22 Completed [facility] Dosage 00:00:00 [facility] Polio (IPV/OPV) 2001-04-22 Completed [facility] 00:00:00 [facility] DTAP 2001-04-22 Completed [facility] 00:00:00 [facility] HIB 4 Dose Schedule 2001-04-22 Completed [facility] 00:00:00 [facility] DTAP 2001-04-22 Completed [facility] 00:00:00 [facility] Hep B, Adol or Pedi 2001-04-22 Completed [facility] Dosage 00:00:00 [facility] Polio (IPV/OPV) 2001-04-22 Completed [facility] 00:00:00 [facility] DTAP 2001-04-22 Completed [facility] 00[facility]00:00 [facility] HIB 4 Dose Schedule 2001-04-22 Completed [facility] 00:00:00 [facility] Hep B, Adol or Pedi 2001-04-22 Completed [facility] Dosage 00:00:00 [facility] Polio (IPV/OPV) 2001-04-22 Completed [facility] 00:00:00 [facility] HIB 4 Dose Schedule 2001-04-22 Completed [facility] 00:00:00 [facility] DTAP 2001-04-22 Completed [facility] 00:00:00 [facility] HIB 4 Dose Schedule 2001-04-22 Completed [facility] 00:00:00 [facility] Hep B, Adol or Pedi 2001-04-22 Completed [facility] Dosage 00:00:00 [facility] Polio (IPV/OPV) 2001-04-22 Completed [facility] 00:00:00 [facility] DTAP 2001-04-22 Completed [facility] 00:00:00 [facility] HIB 4 Dose Schedule 2001-04-22 Completed [facility] 00:00:00 [facility] Hep B, Adol or Pedi 2001-04-22 Completed [facility] Dosage 00:00:00 [facility] Polio (IPV/OPV) 2001-04-22 Completed [facility] 00:00:00 [facility] Hep B, Adol or Pedi 2001-04-22 Completed [facility] Dosage 00:00:00 [facility] DTAP 2001-04-22 Completed [facility] 00:00:00 [facility] HIB 4 Dose Schedule 2001-04-22 Completed [facility] 00:00:00 [facility] Hep B, Adol or Pedi 2001-04-22 Completed [facility] Dosage 00:00:00 [facility] Polio (IPV/OPV) 2001-04-22 Completed [facility] 00:00:00 [facility] DTAP 2001-04-22 Completed [facility] 00:00:00 [facility] HIB 4 Dose Schedule 2001-04-22 Completed [facility] 00:00:00 [facility] Polio (IPV/OPV) 2001-04-22 Completed [facility] 00:00:00 [facility] Hep B, Adol or Pedi 2001-04-22 Completed [facility] Dosage 00:00:00 [facility] Polio (IPV/OPV) 2001-04-22 Completed [facility] 00:00:00 [facility] DTAP 2001-04-22 Completed [facility] 00:00:00 [facility] HIB 4 Dose Schedule 2001-04-22 Completed [facility] 00:00:00 [facility] Hep B, Adol or Pedi 2001-04-22 Completed [facility] Dosage 00:00:00 [facility] Polio (IPV/OPV) 2001-04-22 Completed [facility] 00:00:00 [facility] DTAP 2001-04-22 Completed [facility] 00:00:00 [facility] HIB 4 Dose Schedule 2001-04-22 Completed [facility] 00:00:00 [facility] Hep B, Adol or Pedi 2001-04-22 Completed [facility] Dosage 00:00:00 [facility] Polio (IPV/OPV) 2001-04-22 Completed [facility] 00:00:00 [facility] DTAP 2001-04-22 Completed [facility] 00:00:00 [facility] HIB 4 Dose Schedule 2001-04-22 Completed [facility] 00:00:00 [facility] Hep B, Adol or Pedi 2001-04-22 Completed [facility] Dosage 00:00:00 [facility] Polio (IPV/OPV) 2001-04-22 Completed [facility] 00:00:00 [facility] DTAP 2001-04-22 Completed [facility] 00:00:00 [facility] HIB 4 Dose Schedule 2001-04-22 Completed [facility] 00:00:00 [facility] Hep B, Adol or Pedi 2001-04-22 Completed [facility] Dosage 00:00:00 [facility] Polio (IPV/OPV) 2001-04-22 Completed [facility] 00:00:00 [facility] DTAP 2001-04-22 Completed [facility] 00:00:00 [facility] HIB 4 Dose Schedule 2001-04-22 Completed [facility] 00:00:00 [facility] Hep B, Adol or Pedi 2001-04-22 Completed [facility] Dosage 00:00:00 [facility] Polio (IPV/OPV) 2001-04-22 Completed [facility] 00:00:00 [facility] DTAP 2001-04-22 Completed [facility] 00:00:00 [facility] HIB 4 Dose Schedule 2001-04-22 Completed [facility] 00:00:00 [facility] Hep B, Adol or Pedi 2001-04-22 Completed [facility] Dosage 00:00:00 [facility] Polio (IPV/OPV) 2001-04-22 Completed [facility] 00:00:00 [facility] DTAP 2001-04-22 Completed [facility] 00:00:00 [facility] DTAP 2001-04-22 Completed [facility] 00:00:00 [facility] HIB 4 Dose Schedule 2001-04-22 Completed [facility] 00:00:00 [facility] Hep B, Adol or Pedi 2001-04-22 Completed [facility] Dosage 00:00:00 [facility] Polio (IPV/OPV) 2001-04-22 Completed [facility] 00:00:00 [facility] HIB 4 Dose Schedule 2001-04-22 Completed [facility] 00:00:00 [facility] DTAP 2001-04-22 Completed [facility] 00:00:00 [facility] HIB 4 Dose Schedule 2001-04-22 Completed [facility] 00:00:00 [facility] Hep B, Adol or Pedi 2001-04-22 Completed [facility] Dosage 00:00:00 [facility] Polio (IPV/OPV) 2001-04-22 Completed [facility] 00:00:00 [facility] DTAP 2001-04-22 Completed [facility] 00:00:00 [facility] HIB 4 Dose Schedule 2001-04-22 Completed [facility] 00:00:00 [facility] Hep B, Adol or Pedi 2001-04-22 Completed [facility] Dosage 00:00:00 [facility] Hep B, Adol or Pedi 2001-04-22 Completed [facility] Dosage 00:00:00 [facility] Polio (IPV/OPV) 2001-04-22 Completed [facility] 00:00:00 [facility] DTAP 2001-04-22 Completed [facility] 00:00:00 [facility] HIB 4 Dose Schedule 2001-04-22 Completed [facility] 00:00:00 [facility] Hep B, Adol or Pedi 2001-04-22 Completed [facility] Dosage 00:00:00 [facility] Hep B, Adol or Pedi 2001-04-22 Completed [facility] Dosage 00:00:00 [facility] Polio (IPV/OPV) 2001-04-22 Completed [facility] 00:00:00 [facility] Polio (IPV/OPV) 2001-04-22 Completed [facility] 00:00:00 [facility] DTAP 2001-04-22 Completed [facility] 00:00:00 [facility] HIB 4 Dose Schedule 2001-04-22 Completed [facility] 00:00:00 [facility] Hep B, Adol or Pedi 2001-04-22 Completed [facility] Dosage 00:00:00 [facility] Polio (IPV/OPV) 2001-04-22 Completed [facility] 00:00:00 [facility] DTAP 2001-04-22 Completed [facility] 00:00:00 [facility] HIB 4 Dose Schedule 2001-04-22 Completed [facility] 00:00:00 [facility] Hep B, Adol or Pedi 2001-04-22 Completed [facility] Dosage 00:00:00 [facility] Polio (IPV/OPV) 2001-04-22 Completed [facility] 00:00:00 [facility] DTAP 2001-04-22 Completed [facility] 00:00:00 [facility] HIB 4 Dose Schedule 2001-04-22 Completed [facility] 00:00:00 [facility] Hep B, Adol or Pedi 2001-04-22 Completed [facility] Dosage 00:00:00 [facility] Polio (IPV/OPV) 2001-04-22 Completed [facility] 00:00:00 [facility] DTAP 2001-04-22 Completed [facility] 00:00:00 [facility] HIB 4 Dose Schedule 2001-04-22 Completed [facility] 00:00:00 [facility] Hep B, Adol or Pedi 2001-04-22 Completed [facility] Dosage 00:00:00 [facility] Polio (IPV/OPV) 2001-04-22 Completed [facility] 00:00:00 [facility] DTAP 2001-04-22 Completed [facility] 00:00:00 [facility] HIB 4 Dose Schedule 2001-04-22 Completed [facility] 00:00:00 [facility] DTAP 2001-04-22 Completed [facility] 00:00:00 [facility] Hep B, Adol or Pedi 2001-04-22 Completed [facility] Dosage 00:00:00 [facility] Polio (IPV/OPV) 2001-04-22 Completed [facility] 00:00:00 [facility] DTAP 2001-04-22 Completed [facility] 00:00:00 [facility] HIB 4 Dose Schedule 2001-04-22 Completed [facility] 00:00:00 [facility] Hep B, Adol or Pedi 2001-04-22 Completed [facility] Dosage 00:00:00 [facility] HIB 4 Dose Schedule 2001-04-22 Completed [facility] 00:00:00 [facility] Polio (IPV/OPV) 2001-04-22 Completed [facility] 00:00:00 [facility] DTAP 2001-04-22 Completed [facility] 00:00:00 [facility] HIB 4 Dose Schedule 2001-04-22 Completed [facility] 00:00:00 [facility] Hep B, Adol or Pedi 2001-04-22 Completed [facility] Dosage 00:00:00 [facility] Polio (IPV/OPV) 2001-04-22 Completed [facility] 00:00:00 [facility] DTAP 2001-04-22 Completed [facility] 00:00:00 [facility] Hep B, Adol or Pedi 2001-04-22 Completed [facility] Dosage 00:00:00 [facility] HIB 4 Dose Schedule 2001-04-22 Completed [facility] 00:00:00 [facility] Hep B, Adol or Pedi 2001-04-22 Completed [facility] Dosage 00:00:00 [facility] Polio (IPV/OPV) 2001-04-22 Completed [facility] 00:00:00 [facility] Polio (IPV/OPV) 2001-04-22 Completed [facility] 00:00:00 [facility] DTAP 2001-04-22 Completed [facility] 00:00:00 [facility] HIB 4 Dose Schedule 2001-04-22 Completed [facility] 00:00:00 [facility] Hep B, Adol or Pedi 2001-04-22 Completed [facility] Dosage 00:00:00 [facility] Polio (IPV/OPV) 2001-04-22 Completed [facility] 00:00:00 [facility] DTaP, Unspecified 2001-04-22 Completed [facility] Formulation 00:00:00 [facility] IPV 2001-04-22 Completed [facility] 00:00:00 [facility] DTAP 2001-04-22 Completed [facility] 00:00:00 [facility] HIB 4 Dose Schedule 2001-04-22 Completed [facility] 00:00:00 [facility] Hep B, Adol or Pedi 2001-04-22 Completed [facility] Dosage 00:00:00 [facility] Polio (IPV/OPV) 2001-04-22 Completed [facility] 00:00:00 [facility] DTaP, Unspecified 2001-04-22 Completed [facility] Formulation 00:00:00 [facility] IPV 2001-04-22 Completed [facility] 00:00:00 [facility] DTAP 2001-04-22 Completed [facility] 00:00:00 [facility] HIB 4 Dose Schedule 2001-04-22 Completed [facility] 00:00:00 [facility] Hep B, Adol or Pedi 2001-04-22 Completed [facility] Dosage 00:00:00 [facility] Polio (IPV/OPV) 2001-04-22 Completed [facility] 00:00:00 [facility] DTaP, Unspecified 2001-04-22 Completed [facility] Formulation 00:00:00 [facility] Polio (IPV/OPV) 2001-04-22 Completed [facility] 00:00:00 [facility] IPV 2001-04-22 Completed [facility] 00:00:00 [facility] DTAP 2001-04-22 Completed [facility] 00:00:00 [facility] HIB 4 Dose Schedule 2001-04-22 Completed [facility] 00:00:00 [facility] Hep B, Adol or Pedi 2001-04-22 Completed [facility] Dosage 00:00:00 [facility] Polio (IPV/OPV) 2001-04-22 Completed [facility] 00:00:00 [facility] DTaP, Unspecified 2001-04-22 Completed [facility] Formulation 00:00:00 [facility] IPV 2001-04-22 Completed [facility] 00:00:00 [facility] DTAP 2001-04-22 Completed [facility] 00:00:00 [facility] HIB 4 Dose Schedule 2001-04-22 Completed [facility] 00:00:00 [facility] Hep B, Adol or Pedi 2001-04-22 Completed [facility] Dosage 00:00:00 [facility] Polio (IPV/OPV) 2001-04-22 Completed [facility] 00:00:00 [facility] DTaP, Unspecified 2001-04-22 Completed [facility] Formulation 00:00:00 [facility] IPV 2001-04-22 Completed [facility] 00:00:00 [facility] DTAP 2001-04-22 Completed [facility] 00:00:00 [facility] HIB 4 Dose Schedule 2001-04-22 Completed [facility] 00:00:00 [facility] Hep B, Adol or Pedi 2001-04-22 Completed [facility] Dosage 00:00:00 [facility] Polio (IPV/OPV) 2001-04-22 Completed [facility] 00:00:00 [facility] DTaP, Unspecified 2001-04-22 Completed [facility] Formulation 00:00:00 [facility] IPV 2001-04-22 Completed [facility] 00:00:00 [facility] DTAP 2001-04-22 Completed [facility] 00:00:00 [facility] DTAP 2001-04-22 Completed [facility] 00:00:00 [facility] HIB 4 Dose Schedule 2001-04-22 Completed [facility] 00:00:00 [facility] Hep B, Adol or Pedi 2001-04-22 Completed [facility] Dosage 00:00:00 [facility] Polio (IPV/OPV) 2001-04-22 Completed [facility] 00:00:00 [facility] DTaP, Unspecified 2001-04-22 Completed [facility] Formulation 00:00:00 [facility] IPV 2001-04-22 Completed [facility] 00:00:00 [facility] HIB 4 Dose Schedule 2001-04-22 Completed [facility] 00:00:00 [facility] DTAP 2001-04-22 Completed [facility] 00:00:00 [facility] HIB 4 Dose Schedule 2001-04-22 Completed [facility] 00:00:00 [facility] Hep B, Adol or Pedi 2001-04-22 Completed [facility] Dosage 00:00:00 [facility] Polio (IPV/OPV) 2001-04-22 Completed [facility] 00:00:00 [facility] DTaP, Unspecified 2001-04-22 Completed [facility] Formulation 00:00:00 [facility] IPV 2001-04-22 Completed [facility] 00:00:00 [facility] Hep B, Adol or Pedi 2001-04-22 Completed [facility] Dosage 00:00:00 [facility] DTAP 2001-04-22 Completed [facility] 00:00:00 [facility] HIB 4 Dose Schedule 2001-04-22 Completed [facility] 00:00:00 [facility] Hep B, Adol or Pedi 2001-04-22 Completed [facility] Dosage 00:00:00 [facility] Polio (IPV/OPV) 2001-04-22 Completed [facility] 00:00:00 [facility] DTaP, Unspecified 2001-04-22 Completed [facility] Formulation 00:00:00 [facility] IPV 2001-04-22 Completed [facility] 00:00:00 [facility] Polio (IPV/OPV) 2001-04-22 Completed [facility] 00:00:00 [facility] DTAP 2001-04-22 Completed [facility] 00:00:00 [facility] HIB 4 Dose Schedule 2001-04-22 Completed [facility] 00:00:00 [facility] Hep B, Adol or Pedi 2001-04-22 Completed [facility] Dosage 00:00:00 [facility] Polio (IPV/OPV) 2001-04-22 Completed [facility] 00:00:00 [facility] DTaP, Unspecified 2001-04-22 Completed [facility] Formulation 00:00:00 [facility] IPV 2001-04-22 Completed [facility] 00:00:00 [facility] DTAP 2001-04-22 Completed [facility] 00:00:00 [facility] HIB 4 Dose Schedule 2001-04-22 Completed [facility] 00:00:00 [facility] Hep B, Adol or Pedi 2001-04-22 Completed [facility] Dosage 00:00:00 [facility] Polio (IPV/OPV) 2001-04-22 Completed [facility] 00:00:00 [facility] DTaP, Unspecified 2001-04-22 Completed [facility] Formulation 00:00:00 [facility] IPV 2001-04-22 Completed [facility] 00:00:00 [facility] DTAP 2001-04-22 Completed [facility] 00:00:00 [facility] HIB 4 Dose Schedule 2001-04-22 Completed [facility] 00:00:00 [facility] Hep B, Adol or Pedi 2001-04-22 Completed [facility] Dosage 00:00:00 [facility] Polio (IPV/OPV) 2001-04-22 Completed [facility] 00:00:00 [facility] DTaP, Unspecified 2001-04-22 Completed [facility] Formulation 00:00:00 [facility] IPV 2001-04-22 Completed [facility] 00:00:00 [facility] DTAP 2001-04-22 Completed [facility] 00:00:00 [facility] HIB 4 Dose Schedule 2001-04-22 Completed [facility] 00:00:00 [facility] Hep B, Adol or Pedi 2001-04-22 Completed [facility] Dosage 00:00:00 [facility] Polio (IPV/OPV) 2001-04-22 Completed [facility] 00:00:00 [facility] DTaP, Unspecified 2001-04-22 Completed [facility] Formulation 00:00:00 [facility] IPV 2001-04-22 Completed [facility] 00:00:00 [facility] DTAP 2001-04-22 Completed [facility] 00:00:00 [facility] HIB 4 Dose Schedule 2001-04-22 Completed [facility] 00:00:00 [facility] DTAP 2001-04-22 Completed [facility] 00:00:00 [facility] Hep B, Adol or Pedi 2001-04-22 Completed [facility] Dosage 00:00:00 [facility] Polio (IPV/OPV) 2001-04-22 Completed [facility] 00:00:00 [facility] DTaP, Unspecified 2001-04-22 Completed [facility] Formulation 00:00:00 [facility] IPV 2001-04-22 Completed [facility] 00:00:00 [facility] HIB 4 Dose Schedule 2001-04-22 Completed [facility] 00:00:00 [facility] DTAP 2001-04-22 Completed [facility] 00:00:00 [facility] HIB 4 Dose Schedule 2001-04-22 Completed [facility] 00:00:00 [facility] Hep B, Adol or Pedi 2001-04-22 Completed [facility] Dosage 00:00:00 [facility] Polio (IPV/OPV) 2001-04-22 Completed [facility] 00:00:00 [facility] DTaP, Unspecified 2001-04-22 Completed [facility] Formulation 00:00:00 [facility] IPV 2001-04-22 Completed [facility] 00:00:00 [facility] DTAP 2001-04-22 Completed [facility] 00:00:00 [facility] HIB 4 Dose Schedule 2001-04-22 Completed [facility] 00:00:00 [facility] Hep B, Adol or Pedi 2001-04-22 Completed [facility] Dosage 00:00:00 [facility] Hep B, Adol or Pedi 2001-04-22 Completed [facility] Dosage 00:00:00 [facility] Polio (IPV/OPV) 2001-04-22 Completed [facility] 00:00:00 [facility] DTaP, Unspecified 2001-04-22 Completed [facility] Formulation 00:00:00 [facility] IPV 2001-04-22 Completed [facility] 00:00:00 [facility] Polio (IPV/OPV) 2001-04-22 Completed [facility] 00:00:00 [facility] DTAP 2001-04-22 Completed [facility] 00:00:00 [facility] HIB 4 Dose Schedule 2001-04-22 Completed [facility] 00:00:00 [facility] Hep B, Adol or Pedi 2001-04-22 Completed [facility] Dosage 00:00:00 [facility] Polio (IPV/OPV) 2001-04-22 Completed [facility] 00:00:00 [facility] DTaP, Unspecified 2001-04-22 Completed [facility] Formulation 00:00:00 [facility] IPV 2001-04-22 Completed [facility] 00:00:00 [facility] DTAP 2001-04-22 Completed [facility] 00:00:00 [facility] HIB 4 Dose Schedule 2001-04-22 Completed [facility] 00:00:00 [facility] Hep B, Adol or Pedi 2001-04-22 Completed [facility] Dosage 00:00:00 [facility] Polio (IPV/OPV) 2001-04-22 Completed [facility] 00:00:00 [facility] DTaP, Unspecified 2001-04-22 Completed [facility] Formulation 00:00:00 [facility] IPV 2001-04-22 Completed [facility] 00:00:00 [facility] DTAP 2001-04-22 Completed [facility] 00:00:00 [facility] HIB 4 Dose Schedule 2001-04-22 Completed [facility] 00:00:00 [facility] Hep B, Adol or Pedi 2001-04-22 Completed [facility] Dosage 00:00:00 [facility] Polio (IPV/OPV) 2001-04-22 Completed [facility] 00:00:00 [facility] DTAP 2001-04-22 Completed [facility] 00:00:00 [facility] HIB 4 Dose Schedule 2001-04-22 Completed [facility] 00:00:00 [facility] Hep B, Adol or Pedi 2001-04-22 Completed [facility] Dosage 00:00:00 [facility] DTAP 2001-04-22 Completed [facility] 00:00:00 [facility] Polio (IPV/OPV) 2001-04-22 Completed [facility] 00:00:00 [facility] DTAP 2001-04-22 Completed [facility] 00:00:00 [facility] HIB 4 Dose Schedule 2001-04-22 Completed [facility] 00:00:00 [facility] Hep B, Adol or Pedi 2001-04-22 Completed [facility] Dosage 00:00:00 [facility] Polio (IPV/OPV) 2001-04-22 Completed [facility] 00:00:00 [facility] HIB 4 Dose Schedule 2001-04-22 Completed [facility] 00:00:00 [facility] DTAP 2001-04-22 Completed [facility] 00:00:00 [facility] HIB 4 Dose Schedule 2001-04-22 Completed [facility] 00:00:00 [facility] Hep B, Adol or Pedi 2001-04-22 Completed [facility] Dosage 00:00:00 [facility] Polio (IPV/OPV) 2001-04-22 Completed [facility] 00:00:00 [facility] DTAP 2001-04-22 Completed [facility] 00:00:00 [facility] Hep B, Adol or Pedi 2001-04-22 Completed [facility] Dosage 00:00:00 [facility] HIB 4 Dose Schedule 2001-04-22 Completed [facility] 00:00:00 [facility] Hep B, Adol or Pedi 2001-04-22 Completed [facility] Dosage 00:00:00 [facility] Polio (IPV/OPV) 2001-04-22 Completed [facility] 00:00:00 [facility] DTAP 2001-04-22 Completed [facility] 00:00:00 [facility] HIB 4 Dose Schedule 2001-04-22 Completed [facility] 00:00:00 [facility] Hep B, Adol or Pedi 2001-04-22 Completed [facility] Dosage 00:00:00 [facility] Polio (IPV/OPV) 2001-04-22 Completed [facility] 00:00:00 [facility] Polio (IPV/OPV) 2001-04-22 Completed [facility] 00:00:00 [facility] DTAP 2001-04-22 Completed [facility] 00:00:00 [facility] HIB 4 Dose Schedule 2001-04-22 Completed [facility] 00:00:00 [facility] Hep B, Adol or Pedi 2001-04-22 Completed [facility] Dosage 00:00:00 [facility] Polio (IPV/OPV) 2001-04-22 Completed [facility] 00:00:00 [facility] DTAP 2001-04-22 Completed [facility] 00:00:00 [facility] HIB 4 Dose Schedule 2001-04-22 Completed [facility] 00:00:00 [facility] Hep B, Adol or Pedi 2001-04-22 Completed [facility] Dosage 00:00:00 [facility] Polio (IPV/OPV) 2001-04-22 Completed [facility] 00:00:00 [facility] DTAP 2001-04-22 Completed [facility] 00:00:00 [facility] HIB 4 Dose Schedule 2001-04-22 Completed [facility] 00:00:00 [facility] Hep B, Adol or Pedi 2001-04-22 Completed [facility] Dosage 00:00:00 [facility] Polio (IPV/OPV) 2001-04-22 Completed [facility] 00:00:00 [facility] DTAP 2001-04-22 Completed [facility] 00:00:00 [facility] HIB 4 Dose Schedule 2001-04-22 Completed [facility] 00:00:00 [facility] Hep B, Adol or Pedi 2001-04-22 Completed [facility] Dosage 00:00:00 [facility] Polio (IPV/OPV) 2001-04-22 Completed [facility] 00:00:00 [facility] DTAP 2001-04-22 Completed [facility] 00:00:00 [facility] HIB 4 Dose Schedule 2001-04-22 Completed [facility] 00:00:00 [facility] Hep B, Adol or Pedi 2001-04-22 Completed [facility] Dosage 00:00:00 [facility] Polio (IPV/OPV) 2001-04-22 Completed [facility] 00:00:00 [facility] DTAP 2001-04-22 Completed [facility] 00:00:00 [facility] HIB 4 Dose Schedule 2001-04-22 Completed [facility] 00:00:00 [facility] DTAP 2001-04-22 Completed [facility] 00:00:00 [facility] Hep B, Adol or Pedi 2001-04-22 Completed [facility] Dosage 00:00:00 [facility] Polio (IPV/OPV) 2001-04-22 Completed [facility] 00:00:00 [facility] HIB 4 Dose Schedule 2001-04-22 Completed [facility] 00:00:00 [facility] DTAP 2001-04-22 Completed [facility] 00:00:00 [facility] DTAP 2001-04-22 Completed [facility] 00:00:00 [facility] HIB 4 Dose Schedule 2001-04-22 Completed [facility] 00:00:00 [facility] Hep B, Adol or Pedi 2001-04-22 Completed [facility] Dosage 00:00:00 [facility] Polio (IPV/OPV) 2001-04-22 Completed [facility] 00:00:00 [facility] Hep B, Adol or Pedi 2001-04-22 Completed [facility] Dosage 00:00:00 [facility] DTAP 2001-04-22 Completed [facility] 00:00:00 [facility] HIB 4 Dose Schedule 2001-04-22 Completed [facility] 00:00:00 [facility] Polio (IPV/OPV) 2001-01-21 Completed [facility] 00:00:00 [facility] Hep B, Adol or Pedi 2001-01-21 Completed [facility] Dosage 00:00:00 [facility] Polio (IPV/OPV) 2001-01-21 Completed [facility] 00:00:00 [facility] DTAP 2001-01-21 Completed [facility] 00:00:00 [facility] HIB 4 Dose Schedule 2001-01-21 Completed [facility] 00:00:00 [facility] Hep B, Adol or Pedi 2001-01-21 Completed [facility] Dosage 00:00:00 [facility] Polio (IPV/OPV) 2001-01-21 Completed [facility] 00:00:00 [facility] DTAP 2001-01-21 Completed [facility] 00:00:00 [facility] HIB 4 Dose Schedule 2001-01-21 Completed [facility] 00:00:00 [facility] Hep B, Adol or Pedi 2001-01-21 Completed [facility] Dosage 00:00:00 [facility] Polio (IPV/OPV) 2001-01-21 Completed [facility] 00:00:00 [facility] DTAP 2001-01-21 Completed [facility] 00:00:00 [facility] HIB 4 Dose Schedule 2001-01-21 Completed [facility] 00:00:00 [facility] Hep B, Adol or Pedi 2001-01-21 Completed [facility] Dosage 00:00:00 [facility] Polio (IPV/OPV) 2001-01-21 Completed [facility] 00:00:00 [facility] DTAP 2001-01-21 Completed [facility] 00:00:00 [facility] HIB 4 Dose Schedule 2001-01-21 Completed [facility] 00:00:00 [facility] Hep B, Adol or Pedi 2001-01-21 Completed [facility] Dosage 00:00:00 [facility] DTAP 2001-01-21 Completed [facility] 00:00:00 [facility] Polio (IPV/OPV) 2001-01-21 Completed [facility] 00:00:00 [facility] DTAP 2001-01-21 Completed [facility] 00:00:00 [facility] HIB 4 Dose Schedule 2001-01-21 Completed [facility] 00:00:00 [facility] Hep B, Adol or Pedi 2001-01-21 Completed [facility] Dosage 00:00:00 [facility] Polio (IPV/OPV) 2001-01-21 Completed [facility] 00:00:00 [facility] HIB 4 Dose Schedule 2001-01-21 Completed [facility] 00:00:00 [facility] DTAP 2001-01-21 Completed [facility] 00:00:00 [facility] HIB 4 Dose Schedule 2001-01-21 Completed [facility] 00:00:00 [facility] Hep B, Adol or Pedi 2001-01-21 Completed [facility] Dosage 00:00:00 [facility] Polio (IPV/OPV) 2001-01-21 Completed [facility] 00:00:00 [facility] DTAP 2001-01-21 Completed [facility] 00:00:00 [facility] HIB 4 Dose Schedule 2001-01-21 Completed [facility] 00:00:00 [facility] Hep B, Adol or Pedi 2001-01-21 Completed [facility] Dosage 00:00:00 [facility] Polio (IPV/OPV) 2001-01-21 Completed [facility] 00:00:00 [facility] Hep B, Adol or Pedi 2001-01-21 Completed [facility] Dosage 00:00:00 [facility] DTAP 2001-01-21 Completed [facility] 00:00:00 [facility] HIB 4 Dose Schedule 2001-01-21 Completed [facility] 00:00:00 [facility] HIB 4 Dose Schedule 2001-01-21 Completed [facility] 00:00:00 [facility] Hep B, Adol or Pedi 2001-01-21 Completed [facility] Dosage 00:00:00 [facility] Polio (IPV/OPV) 2001-01-21 Completed [facility] 00:00:00 [facility] Polio (IPV/OPV) 2001-01-21 Completed [facility] 00:00:00 [facility] DTAP 2001-01-21 Completed [facility] 00:00:00 [facility] HIB 4 Dose Schedule 2001-01-21 Completed [facility] 00:00:00 [facility] Hep B, Adol or Pedi 2001-01-21 Completed [facility] Dosage 00:00:00 [facility] Polio (IPV/OPV) 2001-01-21 Completed [facility] 00:00:00 [facility] DTAP 2001-01-21 Completed [facility] 00:00:00 [facility] HIB 4 Dose Schedule 2001-01-21 Completed [facility] 00:00:00 [facility] Hep B, Adol or Pedi 2001-01-21 Completed [facility] Dosage 00:00:00 [facility] Polio (IPV/OPV) 2001-01-21 Completed [facility] 00:00:00 [facility] DTAP 2001-01-21 Completed [facility] 00[facility]00:00 [facility] HIB 4 Dose Schedule 2001-01-21 Completed [facility] 00:00:00 [facility] Hep B, Adol or Pedi 2001-01-21 Completed [facility] Dosage 00:00:00 [facility] Polio (IPV/OPV) 2001-01-21 Completed [facility] 00:00:00 [facility] DTAP 2001-01-21 Completed [facility] 00[facility]00:00 [facility] DTAP 2001-01-21 Completed [facility] 00:00:00 [facility] HIB 4 Dose Schedule 2001-01-21 Completed [facility] 00:00:00 [facility] Hep B, Adol or Pedi 2001-01-21 Completed [facility] Dosage 00:00:00 [facility] Polio (IPV/OPV) 2001-01-21 Completed [facility] 00:00:00 [facility] DTAP 2001-01-21 Completed [facility] 00:00:00 [facility] HIB 4 Dose Schedule 2001-01-21 Completed [facility] 00:00:00 [facility] Hep B, Adol or Pedi 2001-01-21 Completed [facility] Dosage 00:00:00 [facility] HIB 4 Dose Schedule 2001-01-21 Completed [facility] 00:00:00 [facility] Polio (IPV/OPV) 2001-01-21 Completed [facility] 00:00:00 [facility] DTAP 2001-01-21 Completed [facility] 00:00:00 [facility] HIB 4 Dose Schedule 2001-01-21 Completed [facility] 00:00:00 [facility] Hep B, Adol or Pedi 2001-01-21 Completed [facility] Dosage 00:00:00 [facility] Polio (IPV/OPV) 2001-01-21 Completed [facility] 00:00:00 [facility] DTAP 2001-01-21 Completed [facility] 00:00:00 [facility] HIB 4 Dose Schedule 2001-01-21 Completed [facility] 00:00:00 [facility] Hep B, Adol or Pedi 2001-01-21 Completed [facility] Dosage 00:00:00 [facility] Hep B, Adol or Pedi 2001-01-21 Completed [facility] Dosage 00:00:00 [facility] Polio (IPV/OPV) 2001-01-21 Completed [facility] 00:00:00 [facility] DTAP 2001-01-21 Completed [facility] 00:00:00 [facility] HIB 4 Dose Schedule 2001-01-21 Completed [facility] 00:00:00 [facility] Hep B, Adol or Pedi 2001-01-21 Completed [facility] Dosage 00:00:00 [facility] Polio (IPV/OPV) 2001-01-21 Completed [facility] 00:00:00 [facility] DTAP 2001-01-21 Completed [facility] 00:00:00 [facility] Polio (IPV/OPV) 2001-01-21 Completed [facility] 00:00:00 [facility] HIB 4 Dose Schedule 2001-01-21 Completed [facility] 00:00:00 [facility] Hep B, Adol or Pedi 2001-01-21 Completed [facility] Dosage 00:00:00 [facility] Polio (IPV/OPV) 2001-01-21 Completed [facility] 00:00:00 [facility] DTAP 2001-01-21 Completed [facility] 00:00:00 [facility] HIB 4 Dose Schedule 2001-01-21 Completed [facility] 00:00:00 [facility] Hep B, Adol or Pedi 2001-01-21 Completed [facility] Dosage 00:00:00 [facility] Polio (IPV/OPV) 2001-01-21 Completed [facility] 00:00:00 [facility] DTAP 2001-01-21 Completed [facility] 00:00:00 [facility] HIB 4 Dose Schedule 2001-01-21 Completed [facility] 00:00:00 [facility] Hep B, Adol or Pedi 2001-01-21 Completed [facility] Dosage 00:00:00 [facility] Polio (IPV/OPV) 2001-01-21 Completed [facility] 00:00:00 [facility] DTAP 2001-01-21 Completed [facility] 00:00:00 [facility] HIB 4 Dose Schedule 2001-01-21 Completed [facility] 00:00:00 [facility] Hep B, Adol or Pedi 2001-01-21 Completed [facility] Dosage 00:00:00 [facility] Polio (IPV/OPV) 2001-01-21 Completed [facility] 00:00:00 [facility] DTAP 2001-01-21 Completed [facility] 00:00:00 [facility] HIB 4 Dose Schedule 2001-01-21 Completed [facility] 00:00:00 [facility] Hep B, Adol or Pedi 2001-01-21 Completed [facility] Dosage 00:00:00 [facility] Polio (IPV/OPV) 2001-01-21 Completed [facility] 00:00:00 [facility] DTAP 2001-01-21 Completed [facility] 00:00:00 [facility] HIB 4 Dose Schedule 2001-01-21 Completed [facility] 00:00:00 [facility] Hep B, Adol or Pedi 2001-01-21 Completed [facility] Dosage 00:00:00 [facility] Polio (IPV/OPV) 2001-01-21 Completed [facility] 00:00:00 [facility] DTAP 2001-01-21 Completed [facility] 00:00:00 [facility] HIB 4 Dose Schedule 2001-01-21 Completed [facility] 00:00:00 [facility] Hep B, Adol or Pedi 2001-01-21 Completed [facility] Dosage 00:00:00 [facility] Polio (IPV/OPV) 2001-01-21 Completed [facility] 00:00:00 [facility] DTAP 2001-01-21 Completed [facility] 00:00:00 [facility] DTAP 2001-01-21 Completed [facility] 00:00:00 [facility] HIB 4 Dose Schedule 2001-01-21 Completed [facility] 00:00:00 [facility] HIB 4 Dose Schedule 2001-01-21 Completed [facility] 00:00:00 [facility] Hep B, Adol or Pedi 2001-01-21 Completed [facility] Dosage 00:00:00 [facility] Polio (IPV/OPV) 2001-01-21 Completed [facility] 00:00:00 [facility] DTAP 2001-01-21 Completed [facility] 00:00:00 [facility] HIB 4 Dose Schedule 2001-01-21 Completed [facility] 00:00:00 [facility] Hep B, Adol or Pedi 2001-01-21 Completed [facility] Dosage 00:00:00 [facility] Hep B, Adol or Pedi 2001-01-21 Completed [facility] Dosage 00:00:00 [facility] Polio (IPV/OPV) 2001-01-21 Completed [facility] 00:00:00 [facility] DTAP 2001-01-21 Completed [facility] 00:00:00 [facility] Hep B, Adol or Pedi 2001-01-21 Completed [facility] Dosage 00:00:00 [facility] HIB 4 Dose Schedule 2001-01-21 Completed [facility] 00:00:00 [facility] Hep B, Adol or Pedi 2001-01-21 Completed [facility] Dosage 00:00:00 [facility] Polio (IPV/OPV) 2001-01-21 Completed [facility] 00:00:00 [facility] DTAP 2001-01-21 Completed [facility] 00:00:00 [facility] HIB 4 Dose Schedule 2001-01-21 Completed [facility] 00:00:00 [facility] Polio (IPV/OPV) 2001-01-21 Completed [facility] 00:00:00 [facility] Hep B, Adol or Pedi 2001-01-21 Completed [facility] Dosage 00:00:00 [facility] Polio (IPV/OPV) 2001-01-21 Completed [facility] 00:00:00 [facility] DTAP 2001-01-21 Completed [facility] 00:00:00 [facility] HIB 4 Dose Schedule 2001-01-21 Completed [facility] 00:00:00 [facility] Hep B, Adol or Pedi 2001-01-21 Completed [facility] Dosage 00:00:00 [facility] Polio (IPV/OPV) 2001-01-21 Completed [facility] 00:00:00 [facility] DTAP 2001-01-21 Completed [facility] 00:00:00 [facility] HIB 4 Dose Schedule 2001-01-21 Completed [facility] 00:00:00 [facility] Hep B, Adol or Pedi 2001-01-21 Completed [facility] Dosage 00:00:00 [facility] Polio (IPV/OPV) 2001-01-21 Completed [facility] 00:00:00 [facility] DTAP 2001-01-21 Completed [facility] 00:00:00 [facility] HIB 4 Dose Schedule 2001-01-21 Completed [facility] 00:00:00 [facility] Hep B, Adol or Pedi 2001-01-21 Completed [facility] Dosage 00:00:00 [facility] Polio (IPV/OPV) 2001-01-21 Completed [facility] 00:00:00 [facility] DTAP 2001-01-21 Completed [facility] 00:00:00 [facility] HIB 4 Dose Schedule 2001-01-21 Completed [facility] 00:00:00 [facility] Hep B, Adol or Pedi 2001-01-21 Completed [facility] Dosage 00:00:00 [facility] Polio (IPV/OPV) 2001-01-21 Completed [facility] 00:00:00 [facility] DTAP 2001-01-21 Completed [facility] 00:00:00 [facility] DTAP 2001-01-21 Completed [facility] 00:00:00 [facility] HIB 4 Dose Schedule 2001-01-21 Completed [facility] 00:00:00 [facility] Hep B, Adol or Pedi 2001-01-21 Completed [facility] Dosage 00:00:00 [facility] Polio (IPV/OPV) 2001-01-21 Completed [facility] 00:00:00 [facility] DTAP 2001-01-21 Completed [facility] 00:00:00 [facility] HIB 4 Dose Schedule 2001-01-21 Completed [facility] 00:00:00 [facility] HIB 4 Dose Schedule 2001-01-21 Completed [facility] 00:00:00 [facility] Hep B, Adol or Pedi 2001-01-21 Completed [facility] Dosage 00:00:00 [facility] Polio (IPV/OPV) 2001-01-21 Completed [facility] 00:00:00 [facility] DTAP 2001-01-21 Completed [facility] 00:00:00 [facility] HIB 4 Dose Schedule 2001-01-21 Completed [facility] 00:00:00 [facility] Hep B, Adol or Pedi 2001-01-21 Completed [facility] Dosage 00:00:00 [facility] Polio (IPV/OPV) 2001-01-21 Completed [facility] 00:00:00 [facility] Hep B, Adol or Pedi 2001-01-21 Completed [facility] Dosage 00:00:00 [facility] DTAP 2001-01-21 Completed [facility] 00:00:00 [facility] HIB 4 Dose Schedule 2001-01-21 Completed [facility] 00:00:00 [facility] Hep B, Adol or Pedi 2001-01-21 Completed [facility] Dosage 00:00:00 [facility] Polio (IPV/OPV) 2001-01-21 Completed [facility] 00:00:00 [facility] Polio (IPV/OPV) 2001-01-21 Completed [facility] 00:00:00 [facility] DTAP 2001-01-21 Completed [facility] 00:00:00 [facility] HIB 4 Dose Schedule 2001-01-21 Completed [facility] 00:00:00 [facility] Hep B, Adol or Pedi 2001-01-21 Completed [facility] Dosage 00:00:00 [facility] Polio (IPV/OPV) 2001-01-21 Completed [facility] 00:00:00 [facility] DTaP, Unspecified 2001-01-21 Completed [facility] Formulation 00:00:00 [facility] IPV 2001-01-21 Completed [facility] 00:00:00 [facility] DTAP 2001-01-21 Completed [facility] 00:00:00 [facility] HIB 4 Dose Schedule 2001-01-21 Completed [facility] 00:00:00 [facility] Hep B, Adol or Pedi 2001-01-21 Completed [facility] Dosage 00:00:00 [facility] Polio (IPV/OPV) 2001-01-21 Completed [facility] 00:00:00 [facility] Polio (IPV/OPV) 2001-01-21 Completed [facility] 00:00:00 [facility] DTaP, Unspecified 2001-01-21 Completed [facility] Formulation 00:00:00 [facility] IPV 2001-01-21 Completed [facility] 00:00:00 [facility] DTAP 2001-01-21 Completed [facility] 00:00:00 [facility] HIB 4 Dose Schedule 2001-01-21 Completed [facility] 00:00:00 [facility] Hep B, Adol or Pedi 2001-01-21 Completed [facility] Dosage 00:00:00 [facility] Polio (IPV/OPV) 2001-01-21 Completed [facility] 00:00:00 [facility] DTaP, Unspecified 2001-01-21 Completed [facility] Formulation 00:00:00 [facility] IPV 2001-01-21 Completed [facility] of 00:00:00 [facility] DTAP 2001-01-21 Completed [facility] of 00:00:00 [facility] HIB 4 Dose Schedule 2001-01-21 Completed Unive rsity of 00:00:00 [facility] Hep B, Adol or Pedi 2001-01-21 Completed [facility]ive rsity of Dosage 00:00:00 [facility] Polio (IPV/OPV) 2001-01-21 Completed [facility] 00:00:00 [facility] DTaP, Unspecified 2001-01-21 Completed [facility] Formulation 00:00:00 [facility] IPV 2001-01-21 Completed University of 00:00:00 [facility] DTAP 2001-01-21 Completed [facility] of 00:00:00 [facility] HIB 4 Dose Schedule 2001-01-21 Completed [facility]ive rsity of 00:00:00 [facility] Hep B, Adol or Pedi 2001-01-21 Completed [facility]ive rsity of Dosage 00:00:00 [facility] Polio (IPV/OPV) 2001-01-21 Completed [facility] 00:00:00 [facility] DTaP, Unspecified 2001-01-21 Completed [facility] Formulation 00:00:00 [facility] IPV 2001-01-21 Completed [facility] of 00:00:00 [facility] DTAP 2001-01-21 Completed [facility] of 00:00:00 [facility] HIB 4 Dose Schedule 2001-01-21 Completed [facility]ive rsity of 00:00:00 [facility] Hep B, Adol or Pedi 2001-01-21 Completed [facility]ive rs[facility] of Dosage 00:00:00 [facility] Polio (IPV/OPV) 2001-01-21 Completed [facility] 00:00:00 [facility] DTaP, Unspecified 2001-01-21 Completed [facility] Formulation 00:00:00 [facility] DTAP 2001-01-21 Completed [facility] of 00:00:00 [facility] IPV 2001-01-21 Completed [facility] 00:00:00 [facility] DTAP 2001-01-21 Completed [facility] 00:00:00 [facility] HIB 4 Dose Schedule 2001-01-21 Completed [facility]ive rsity of 00:00:00 [facility] Hep B, Adol or Pedi 2001-01-21 Completed [facility]ive rsity of Dosage 00:00:00 [facility] Polio (IPV/OPV) 2001-01-21 Completed [facility] 00:00:00 [facility] DTaP, Unspecified 2001-01-21 Completed [facility] Formulation 00:00:00 [facility] HIB 4 Dose Schedule 2001-01-21 Completed [facility]ive rsity of 00:00:00 [facility] IPV 2001-01-21 Completed [facility] of 00:00:00 [facility] DTAP 2001-01-21 Completed [facility] 00:00:00 [facility] HIB 4 Dose Schedule 2001-01-21 Completed [facility]ive rsity of 00:00:00 [facility] Hep B, Adol or Pedi 2001-01-21 Completed [facility]ive rsity of Dosage 00:00:00 [facility] Polio (IPV/OPV) 2001-01-21 Completed [facility] 00:00:00 [facility] DTaP, Unspecified 2001-01-21 Completed [facility] Formulation 00:00:00 [facility] IPV 2001-01-21 Completed [facility] of 00:00:00 [facility] Hep B, Adol or Pedi 2001-01-21 Completed [facility]ive rs[facility] of Dosage 00:00:00 [facility] DTAP 2001-01-21 Completed [facility] of 00:00:00 [facility] HIB 4 Dose Schedule 2001-01-21 Completed [facility]ive rsity of 00:00:00 [facility] Hep B, Adol or Pedi 2001-01-21 Completed [facility]ive rsity of Dosage 00:00:00 [facility] Polio (IPV/OPV) 2001-01-21 Completed [facility] 00:00:00 [facility] DTaP, Unspecified 2001-01-21 Completed [facility] Formulation 00:00:00 [facility] IPV 2001-01-21 Completed [facility] of 00:00:00 [facility] Polio (IPV/OPV) 2001-01-21 Completed [facility] 00:00:00 [facility] DTAP 2001-01-21 Completed [facility] of 00:00:00 [facility] HIB 4 Dose Schedule 2001-01-21 Completed [facility]ive rsity of 00:00:00 [facility] Hep B, Adol or Pedi 2001-01-21 Completed [facility]ive rsity of Dosage 00:00:00 [facility] Polio (IPV/OPV) 2001-01-21 Completed [facility] of 00:00:00 [facility] DTaP, Unspecified 2001-01-21 Completed [facility] Formulation 00:00:00 [facility] IPV 2001-01-21 Completed [facility] of 00:00:00 [facility] DTAP 2001-01-21 Completed [facility] of 00:00:00 [facility] HIB 4 Dose Schedule 2001-01-21 Completed [facility]ive rsity of 00:00:00 [facility] Hep B, Adol or Pedi 2001-01-21 Completed [facility]ive rsity of Dosage 00:00:00 [facility] Polio (IPV/OPV) 2001-01-21 Completed [facility] 00:00:00 [facility] DTaP, Unspecified 2001-01-21 Completed [facility] Formulation 00:00:00 [facility] IPV 2001-01-21 Completed [facility] of 00:00:00 [facility] DTAP 2001-01-21 Completed [facility] 00:00:00 [facility] HIB 4 Dose Schedule 2001-01-21 Completed [facility]ive rsity of 00:00:00 [facility] Hep B, Adol or Pedi 2001-01-21 Completed [facility]ive rsity of Dosage 00:00:00 [facility] Polio (IPV/OPV) 2001-01-21 Completed [facility] 00:00:00 [facility] DTaP, Unspecified 2001-01-21 Completed [facility] Formulation 00:00:00 [facility] IPV 2001-01-21 Completed [facility] of 00:00:00 [facility] DTAP 2001-01-21 Completed [facility] of 00:00:00 [facility] HIB 4 Dose Schedule 2001-01-21 Completed [facility]ive rsity of 00:00:00 [facility] Hep B, Adol or Pedi 2001-01-21 Completed [facility]ive rsity of Dosage 00:00:00 [facility] Polio (IPV/OPV) 2001-01-21 Completed [facility] 00:00:00 [facility] DTaP, Unspecified 2001-01-21 Completed [facility] Formulation 00:00:00 [facility] IPV 2001-01-21 Completed [facility] of 00:00:00 [facility] DTAP 2001-01-21 Completed [facility] of 00:00:00 [facility] DTAP 2001-01-21 Completed [facility] of 00:00:00 [facility] HIB 4 Dose Schedule 2001-01-21 Completed [facility]ive rsity of 00:00:00 [facility] Hep B, Adol or Pedi 2001-01-21 Completed Unive rsity of Dosage 00:00:00 [facility] Polio (IPV/OPV) 2001-01-21 Completed [facility] 00:00:00 [facility] DTaP, Unspecified 2001-01-21 Completed [facility] Formulation 00:00:00 [facility] IPV 2001-01-21 Completed [facility] of 00:00:00 [facility] HIB 4 Dose Schedule 2001-01-21 Completed [facility]ive rsity of 00:00:00 [facility] DTAP 2001-01-21 Completed [facility] of 00:00:00 [facility] HIB 4 Dose Schedule 2001-01-21 Completed [facility]ive rsity of 00:00:00 [facility] Hep B, Adol or Pedi 2001-01-21 Completed [facility]ive rsity of Dosage 00:00:00 [facility] Polio (IPV/OPV) 2001-01-21 Completed [facility] 00:00:00 [facility] DTaP, Unspecified 2001-01-21 Completed [facility] Formulation 00:00:00 [facility] IPV 2001-01-21 Completed [facility] of 00:00:00 [facility] Hep B, Adol or Pedi 2001-01-21 Completed Unive rsity of Dosage 00:00:00 [facility] DTAP 2001-01-21 Completed [facility] of 00:00:00 [facility] HIB 4 Dose Schedule 2001-01-21 Completed [facility]ive rsity of 00:00:00 [facility] Hep B, Adol or Pedi 2001-01-21 Completed [facility]ive rsity of Dosage 00:00:00 [facility] Polio (IPV/OPV) 2001-01-21 Completed [facility] 00:00:00 [facility] DTaP, Unspecified 2001-01-21 Completed [facility] Formulation 00:00:00 [facility] IPV 2001-01-21 Completed [facility] 00:00:00 [facility] Polio (IPV/OPV) 2001-01-21 Completed [facility] 00:00:00 [facility] DTAP 2001-01-21 Completed [facility] 00:00:00 [facility] HIB 4 Dose Schedule 2001-01-21 Completed Unive rsity of 00:00:00 [facility] Hep B, Adol or Pedi 2001-01-21 Completed [facility]ive rsity of Dosage 00:00:00 [facility] Polio (IPV/OPV) 2001-01-21 Completed [facility] 00:00:00 [facility] DTaP, Unspecified 2001-01-21 Completed [facility] Formulation 00:00:00 [facility] IPV 2001-01-21 Completed [facility] of 00:00:00 [facility] DTAP 2001-01-21 Completed [facility] 00:00:00 [facility] HIB 4 Dose Schedule 2001-01-21 Completed Unive rsity of 00:00:00 [facility] Hep B, Adol or Pedi 2001-01-21 Completed [facility]ive rsity of Dosage 00:00:00 [facility] Polio (IPV/OPV) 2001-01-21 Completed [facility] 00:00:00 [facility] DTaP, Unspecified 2001-01-21 Completed [facility] Formulation 00:00:00 [facility] IPV 2001-01-21 Completed [facility] 00:00:00 [facility] DTAP 2001-01-21 Completed [facility] 00:00:00 [facility] HIB 4 Dose Schedule 2001-01-21 Completed [facility]ive rsity of 00:00:00 [facility] Hep B, Adol or Pedi 2001-01-21 Completed Unive rsity of Dosage 00:00:00 [facility] Polio (IPV/OPV) 2001-01-21 Completed [facility] 00:00:00 [facility] DTAP 2001-01-21 Completed [facility] 00:00:00 [facility] HIB 4 Dose Schedule 2001-01-21 Completed [facility]ive rsity of 00:00:00 [facility] DTAP 2001-01-21 Completed [facility] 00:00:00 [facility] Hep B, Adol or Pedi 2001-01-21 Completed Unive rsity of Dosage 00:00:00 [facility] Polio (IPV/OPV) 2001-01-21 Completed [facility] 00:00:00 [facility] DTAP 2001-01-21 Completed [facility] of 00:00:00 [facility] HIB 4 Dose Schedule 2001-01-21 Completed [facility]ive rsity of 00:00:00 [facility] Hep B, Adol or Pedi 2001-01-21 Completed [facility]ive rsity of Dosage 00:00:00 [facility] HIB 4 Dose Schedule 2001-01-21 Completed Unive rsity of 00:00:00 [facility] Polio (IPV/OPV) 2001-01-21 Completed [facility] 00:00:00 [facility] DTAP 2001-01-21 Completed [facility] of 00:00:00 [facility] HIB 4 Dose Schedule 2001-01-21 Completed Unive rsity of 00:00:00 [facility] Hep B, Adol or Pedi 2001-01-21 Completed Unive rsity of Dosage 00:00:00 [facility] Polio (IPV/OPV) 2001-01-21 Completed [facility] 00:00:00 [facility] Hep B, Adol or Pedi 2001-01-21 Completed Unive rsity of Dosage 00:00:00 [facility] DTAP 2001-01-21 Completed [facility] of 00:00:00 [facility] HIB 4 Dose Schedule 2001-01-21 Completed [facility]ive rsity of 00:00:00 [facility] Hep B, Adol or Pedi 2001-01-21 Completed Unive rsity of Dosage 00:00:00 [facility] Polio (IPV/OPV) 2001-01-21 Completed [facility] of 00:00:00 [facility] DTAP 2001-01-21 Completed [facility] of 00:00:00 [facility] HIB 4 Dose Schedule 2001-01-21 Completed Unive rsity of 00:00:00 [facility] Hep B, Adol or Pedi 2001-01-21 Completed Unive rsity of Dosage 00:00:00 [facility] Polio (IPV/OPV) 2001-01-21 Completed [facility] of 00:00:00 [facility] Polio (IPV/OPV) 2001-01-21 Completed [facility] of 00:00:00 [facility] DTAP 2001-01-21 Completed [facility] of 00:00:00 [facility] HIB 4 Dose Schedule 2001-01-21 Completed Unive rsity of 00:00:00 [facility] Hep B, Adol or Pedi 2001-01-21 Completed Unive rsity of Dosage 00:00:00 [facility] Polio (IPV/OPV) 2001-01-21 Completed [facility] of 00:00:00 [facility] DTAP 2001-01-21 Completed [facility] of 00:00:00 [facility] HIB 4 Dose Schedule 2001-01-21 Completed [facility]ive rsity of 00:00:00 [facility] Hep B, Adol or Pedi 2001-01-21 Completed Unive rsity of Dosage 00:00:00 [facility] Polio (IPV/OPV) 2001-01-21 Completed [facility] 00:00:00 [facility] DTAP 2001-01-21 Completed [facility] of 00:00:00 [facility] HIB 4 Dose Schedule 2001-01-21 Completed [facility]ive rsity of 00:00:00 [facility] Hep B, Adol or Pedi 2001-01-21 Completed Unive rsity of Dosage 00:00:00 [facility] Polio (IPV/OPV) 2001-01-21 Completed [facility] 00:00:00 [facility] DTAP 2001-01-21 Completed [facility] of 00:00:00 [facility] HIB 4 Dose Schedule 2001-01-21 Completed Unive rsity of 00:00:00 [facility] Hep B, Adol or Pedi 2001-01-21 Completed Unive rsity of Dosage 00:00:00 [facility] Polio (IPV/OPV) 2001-01-21 Completed [facility] 00:00:00 [facility] DTAP 2001-01-21 Completed [facility] of 00:00:00 [facility] HIB 4 Dose Schedule 2001-01-21 Completed Unive rsity of 00:00:00 [facility] Hep B, Adol or Pedi 2001-01-21 Completed Unive rsity of Dosage 00:00:00 [facility] Polio (IPV/OPV) 2001-01-21 Completed [facility]it [facility] of 00:00:00 [facility] DTAP 2001-01-21 Completed [facility] of 00:00:00 [facility] DTAP 2001-01-21 Completed [facility] of 00:00:00 [facility] DTAP 2001-01-21 Completed [facility] of 00:00:00 [facility] HIB 4 Dose Schedule 2001-01-21 Completed Unive rsity of 00:00:00 [facility] Hep B, Adol or Pedi 2001-01-21 Completed Unive rsity of Dosage 00:00:00 [facility] Polio (IPV/OPV) 2001-01-21 Completed [facility] of 00:00:00 [facility] HIB 4 Dose Schedule 2001-01-21 Completed Unive rsity of 00:00:00 [facility] DTAP 2001-01-21 Completed [facility] of 00:00:00 [facility] HIB 4 Dose Schedule 2001-01-21 Completed Unive rsity of 00:00:00 [facility] Hep B, Adol or Pedi 2001-01-21 Completed Unive rsity of Dosage 00:00:00 [facility] Polio (IPV/OPV) 2001-01-21 Completed [facility]it [facility] of 00:00:00 [facility] Hep B, Adol or Pedi 2001-01-21 Completed Unive rsity of Dosage 00:00:00 [facility] DTAP 2001-01-21 Completed [facility] of 00:00:00 [facility] HIB 4 Dose Schedule 2001-01-21 Completed Unive rsity of 00:00:00 [facility] Hep B, Adol or Pedi 2000 Completed Unive rsity of Dosage 00:00:00 [facility] Hep B, Adol or Pedi [...] Completed Unive rsity of Dosage 00:00:00 [facility] Hep B, Adol or Pedi 2000 Completed Unive rsity of Dosage 00:00:00 [facility] Hep B, Adol or Pedi 2000 Completed Unive rsity of Dosage 00:00:00 [facility] Vital Signs Vital Name Observation Time Observation Value Comments Source Systolic blood 2022-10-16 21:15:00 109 mm[Hg] Univer sity of pressure [facility] Diastolic blood 2022-10-16 21:15:00 71 mm[Hg] Unive rsity of pressure [facility] Heart rate 2022-10-16 21:15:00 73 /min Universi ty of [facility] Body temperature 2022-10-16 21:15:00 36.56 Karis Univ ersity of [facility] Respiratory rate 2022-10-16 21:15:00 18 /min Univ ersity of [facility] Body height 2022-10-16 21:15:00 170.2 cm Universi ty of [facility] Body weight 2022-10-16 21:15:00 63.776 kg Universi ty [facility] BMI 2022-10-16 21:15:00 22.02 kg/m2 [facility] Oxygen saturation 2022-10-16 21:15:00 96 /min Uni versity of in Arterial blood [facility] by Pulse oximetry [place] Systolic blood 2022-08-08 19:24:00 108 mm[Hg] Univer sity of pressure [facility] Diastolic blood 2022-08-08 19:24:00 74 mm[Hg] Unive rsity of pressure [facility] Heart rate 2022-08-08 19:24:00 86 /min Universi ty of [facility] Body temperature 2022-08-08 19:24:00 36.83 Karis Univ ersity of [facility] Respiratory rate 2022-08-08 19:24:00 18 /min Univ ersity of [facility] Body height 2022-08-08 19:24:00 170.2 cm Universi ty of [facility] Body weight 2022-08-08 19:24:00 60.782 kg Universi ty [facility] BMI 2022-08-08 19:24:00 20.99 kg/m2 Universi ty of [facility] Systolic blood 2022-08-05 13:29:00 120 mm[Hg] Univer sity of pressure [facility] Diastolic blood 2022-08-05 13:29:00 61 mm[Hg] Unive rsity of pressure [facility] Heart rate 2022-08-05 13:29:00 66 /min Universi ty of [facility] Respiratory rate 2022-08-05 13:29:00 16 /min Univ ersity of [facility] Body height 2022-08-05 13:29:00 170.2 cm Universi ty of [facility] Body weight 2022-08-05 13:29:00 61.598 kg Universi ty of [facility] BMI 2022-08-05 13:29:00 21.27 kg/m2 [facility]i ty of [facility] Oxygen saturation 2022-08-05 13:29:00 99 /min Uni versity of in Arterial blood [facility] Systolic blood 2022-06-27 13:59:00 125 mm[Hg] Univer sity of pressure [facility] Diastolic blood 2022-06-27 13:59:00 81 mm[Hg] Unive rsity of pressure [facility] Heart rate 2022-06-27 13:59:00 105 /min Universi ty of [facility] Body temperature 2022-06-27 13:59:00 36.44 Karis Univ ersity of [facility] Respiratory rate 2022-06-27 13:59:00 16 /min Univ ersity of [facility] Body height 2022-06-27 13:59:00 170.2 cm Universi ty of [facility] Body weight 2022-06-27 13:59:00 60.601 kg Universi ty of [facility] BMI 2022-06-27 13:59:00 20.92 kg/m2 [facility] ty of [facility] Systolic blood 2022-06-21 20:13:00 116 mm[Hg] Univer sity of pressure [facility] Diastolic blood 2022-06-21 20:13:00 83 mm[Hg] Unive rsity of pressure [facility] Heart rate 2022-06-21 20:13:00 96 /min [facility] ty [facility] Body temperature 2022-06-21 20:13:00 36.72 Karis Univ ers[facility] of [facility] Respiratory rate 2022-06-21 20:13:00 16 /min Univ ersity of [facility] Body height 2022-06-21 20:13:00 170.2 cm [facility]i [facility] of [facility] Body weight 2022-06-21 20:13:00 60.601 kg [facility] BMI 2022-06-21 20:13:00 20.92 kg/m2 [facility] Oxygen saturation 2022-06-21 20:13:00 97 /min Uni vers[facility] in Arterial blood [facility] Systolic blood 2022-05-04 22:27:00 111 mm[Hg] Univer sity of pressure [facility] Diastolic blood 2022-05-04 22:27:00 73 mm[Hg] Unive rsity of pressure [facility] Heart rate 2022-05-04 22:27:00 72 /min [facility] ty of [facility] Body temperature 2022-05-04 22:27:00 36.78 Karis [facility] Body height 2022-05-04 22:27:00 170.2 cm [facility] ty of [facility] Body weight 2022-05-04 22:27:00 61.236 kg [facility] BMI 2022-05-04 22:27:00 21.14 kg/m2 [facility] Oxygen saturation 2022-05-04 22:27:00 96 /min Uni versity of in Arterial blood [facility] Systolic blood 2022-04-12 20:16:00 111 mm[Hg] Univer sity of pressure [facility] Diastolic blood 2022-04-12 20:16:00 71 mm[Hg] Unive rsity of pressure [facility] Heart rate 2022-04-12 20:16:00 109 /min [facility]i ty of [facility] Body temperature 2022-04-12 20:16:00 37 Karis [facility] of [facility] Respiratory rate 2022-04-12 20:16:00 16 /min Univ ersity of [facility] Body height 2022-04-12 20:16:00 170.2 cm [facility]i ty of [facility] Body weight 2022-04-12 20:16:00 61.281 kg [facility] BMI 2022-04-12 20:16:00 21.16 kg/m2 [facility] Oxygen saturation 2022-04-12 20:16:00 98 /min Uni versity of in Arterial blood [facility] Systolic blood 2022-03-27 23:01:00 114 mm[Hg] Univer sity of pressure [facility] Diastolic blood 2022-03-27 23:01:00 75 mm[Hg] Unive rsity of pressure [facility] Heart rate 2022-03-27 23:01:00 106 /min [facility] of [facility] Body temperature 2022-03-27 23:01:00 37.22 Karis [facility] Respiratory rate 2022-03-27 23:01:00 17 /min Univ ersity of [facility] Body weight 2022-03-27 23:01:00 65.318 kg [facility]i ty [facility] BMI 2022-03-27 23:01:00 22.55 kg/m2 [facility] Oxygen saturation 2022-03-27 23:01:00 96 /min Uni versity of in Arterial blood [facility] Systolic blood 2022-01-05 21:04:00 111 mm[Hg] Univer sity of pressure [facility] Diastolic blood 2022-01-05 21:04:00 75 mm[Hg] Unive rsity of pressure [facility] Heart rate 2022-01-05 21:04:00 83 /min [facility] ty [facility] Body temperature 2022-01-05 21:04:00 36.89 Karis Univ [facility] Respiratory rate 2022-01-05 21:04:00 18 /min [facility] Body height 2022-01-05 21:04:00 170.2 cm [facility] Body weight 2022-01-05 21:04:00 63.413 kg [facility] BMI 2022-01-05 21:04:00 21.90 kg/m2 [facility] Oxygen saturation 2022-01-05 21:04:00 100 /min Uni versity of in Arterial blood [facility] judy by Pulse oximetry Branch Systolic blood 2021-11-28 17:40:00 116 mm[Hg] Univer [facility]ity [facility] Diastolic blood 2021-11-28 17:40:00 80 mm[Hg] Unive rsity of [facility] Heart rate 2021-11-28 17:40:00 76 /min Universi ty of [facility] Body temperature 2021-11-28 17:40:00 36.94 Karis Univ [facility] Respiratory rate 2021-11-28 17:40:00 18 /min Univ [facility] Body height 2021-11-28 17:40:00 170.2 cm Universi ty of [facility] Body weight 2021-11-28 17:40:00 58.333 kg Universi ty of [facility] BMI 2021-11-28 17:40:00 20.14 kg/m2 Universi ty of [facility] Oxygen saturation 2021-11-28 17:40:00 98 /min Uni versity of in Arterial blood [facility] by Pulse oximetry Branch Systolic blood 2021-11-26 20:37:00 123 mm[Hg] Univer sity of [facility] Diastolic blood 2021-11-26 20:37:00 85 mm[Hg] [facility] Heart rate 2021-11-26 20:37:00 76 /min Universi ty of [facility] Body temperature 2021-11-26 20:37:00 36.89 Karis Univ [facility] Respiratory rate 2021-11-26 20:37:00 18 /min [facility] Body weight 2021-11-26 20:37:00 57.289 kg [facility] BMI 2021-11-26 20:37:00 19.78 kg/m2 [facility] Oxygen saturation 2021-11-26 20:37:00 100 /min Uni versity of in Arterial blood [facility] judy by Pulse oximetry Branch Systolic blood 2021-11-18 23:46:00 119 mm[Hg] Univer sity of [facility] Diastolic blood 2021-11-18 23:46:00 74 mm[Hg] Unive rsity of [facility] Heart rate 2021-11-18 23:46:00 97 /min [facility] Body temperature 2021-11-18 23:46:00 36.89 Karis [facility] Res[facility] rate 2021-11-18 23:46:00 18 /min [facility] Body height 2021-11-18 23:46:00 170.2 cm [facility] Body weight 2021-11-18 23:46:00 56.881 kg [facility] BMI 2021-11-18 23:46:00 19.64 kg/m2 [facility] Oxygen saturation 2021-11-18 23:46:00 97 /min Uni versity of in Arterial blood [facility] by Pulse oximetry Branch BP Diastolic 2021-10-29 00:00:00 62 mm[Hg] Ana Donohue edical Height 2021-10-29 00:00:00 67 [in_i] [facility] (Body Mass 2021-10-29 00:00:00 18.8 kg/m2 [facility] Medical Index) BP Systolic 2021-10-29 00:00:00 112 mm[Hg] [facility] Body Weight 2021-10-29 00:00:00 120 [lb_av] [facility] BP Diastolic 2021-09-26 00:00:00 62 mm[Hg] [facility] Height 2021-09-26 00:00:00 67 [in_i] [facility] BMI (Body Mass 2021-09-26 00:00:00 17.2 kg/m2 [facility] Medical Index) BP Systolic 2021-09-26 00:00:00 110 mm[Hg] [facility] Body Weight 2021-09-26 00:00:00 110 [lb_av] [facility] heart rate 2021-08-25 15:20:00 102 /min [facility] temperature 2021-08-25 15:20:00 98.4 [degF] [facility] oximetry 2021-08-25 15:20:00 97 % [facility] BP Diastolic 2021-08-16 00:00:00 72 mm[Hg] [facility] edical Height 2021-08-16 00:00:00 67 [in_i] [facility] BMI (Body Mass 2021-08-16 00:00:00 17.7 kg/m2 [facility] Medical Index) BP Systolic 2021-08-16 00:00:00 102 mm[Hg] [facility] Body Weight 2021-08-16 00:00:00 113 [lb_av] [facility] BP Diastolic 2021-06-14 00:00:00 76 mm[Hg] [facility] Height 2021-06-14 00:00:00 67 [in_i] [facility] BMI (Body Mass 2021-06-14 00:00:00 19 kg/m2 [facility] Medical Index) BP Systolic 2021-06-14 00:00:00 102 mm[Hg] [facility] Body Weight 2021-06-14 00:00:00 121 [lb_av] [facility] Systolic blood 2019-12-02 18:51:00 120 mm[Hg] Univer sity of pressure [facility] Diastolic blood 2019-12-02 18:51:00 78 mm[Hg] [facility] Heart rate 2019-12-02 18:51:00 79 /min [facility] Body temperature 2019-12-02 18:51:00 36.17 Karis [facility] Respiratory rate 2019-12-02 18:51:00 16 /min [facility] Body height 2019-12-02 18:51:00 170.2 cm [facility] Body weight 2019-12-02 18:51:00 57.516 kg [facility] BMI 2019-12-02 18:51:00 19.86 kg/m2 [facility] Systolic blood 2019-11-04 19:06:00 117 mm[Hg] Univer sity of pressure [facility] Diastolic blood 2019-11-04 19:06:00 80 mm[Hg] Unive rsity of pressure [facility] Heart rate 2019-11-04 19:06:00 86 /min [facility] Body temperature 2019-11-04 19:06:00 37 Karis [facility] Respiratory rate 2019-11-04 19:06:00 16 /min [facility] Body height 2019-11-04 19:06:00 170.2 cm [facility] Body weight 2019-11-04 19:06:00 59.563 kg [facility] BMI 2019-11-04 19:06:00 20.57 kg/m2 [facility] Systolic blood 2019-09-20 19:27:00 114 mm[Hg] [facility] Diastolic blood 2019-09-20 19:27:00 77 mm[Hg] [facility]ive [facility] Heart rate 2019-09-20 19:27:00 72 /min [facility] Body temperature 2019-09-20 19:27:00 36.61 Karis [facility] Respiratory rate 2019-09-20 19:27:00 16 /min Univ [facility] Body height 2019-09-20 19:27:00 170.2 cm [facility] Body weight 2019-09-20 19:27:00 59.194 kg [facility] BMI 2019-09-20 19:27:00 20.44 kg/m2 [facility] Systolic blood 2019-09-03 20:17:00 112 mm[Hg] [facility] Diastolic blood 2019-09-03 20:17:00 72 mm[Hg] [facility]ive [facility] Heart rate 2019-09-03 20:17:00 70 /min [facility] Body temperature 2019-09-03 20:17:00 36.44 Karis [facility] Respiratory rate 2019-09-03 20:17:00 16 /min [facility] Body height 2019-09-03 20:17:00 170.2 cm [facility] Body weight 2019-09-03 20:17:00 59.081 kg [facility] BMI 2019-09-03 20:17:00 20.40 kg/m2 [facility] Systolic blood 2019-07-28 17:00:00 141 mm[Hg] RN notified Univer sity of pressure [facility] Diastolic blood 2019-07-28 17:00:00 103 mm[Hg] RN notified Unive rsity of pressure [facility] Heart rate 2019-07-28 17:00:00 90 /min Universi ty of [facility] Body temperature 2019-07-28 17:00:00 37.11 Karis Univ ersity of [facility] Respiratory rate 2019-07-28 17:00:00 20 /min Univ ersity of [facility] Oxygen saturation 2019-07-28 17:00:00 98 /min Uni versity of in Arterial blood [facility] by Pulse oximetry [place] Body height 2019-07-25 18:47:00 170.2 cm Universi ty of [facility] Body weight 2019-07-25 18:47:00 72.576 kg Universi ty of [facility] BMI 2019-07-25 18:47:00 25.06 kg/m2 Universi ty of [facility] Systolic blood 2019-06-29 19:59:00 119 mm[Hg] Univer sity of pressure [facility] Diastolic blood 2019-06-29 19:59:00 79 mm[Hg] [facility]ive [facility]ity [facility] Heart rate 2019-06-29 19:59:00 76 /min Universi ty of [facility] Body temperature 2019-06-29 19:59:00 36.33 Karis Univ ersity of [facility] Respiratory rate 2019-06-29 19:59:00 16 /min Univ ersity of [facility] Body height 2019-06-29 19:59:00 170.2 cm Universi ty of [facility] Body weight 2019-06-29 19:59:00 65.885 kg Universi ty of [facility] BMI 2019-06-29 19:59:00 22.75 kg/m2 Universi ty of [facility] Systolic blood 2019-06-27 04:35:00 130 mm[Hg] Univer sity of pressure [facility] Diastolic blood 2019-06-27 04:35:00 87 mm[Hg] Unive rsity of pressure [facility] Heart rate 2019-06-27 04:35:00 76 /min Universi ty of [facility] Respiratory rate 2019-06-27 04:35:00 18 /min Univ [facility] Oxygen saturation 2019-06-27 04:35:00 100 /min Uni versity of in Arterial blood [facility] by Pulse oximetry Branch Body temperature 2019-06-27 03:39:00 36.94 Karis Univ [facility] Body height 2019-06-27 03:39:00 170.2 cm Universi ty of [facility] Body weight 2019-06-27 03:39:00 63.957 kg [facility] BMI 2019-06-27 03:39:00 22.08 kg/m2 [facility] Systolic blood 2019-06-19 02:16:00 131 mm[Hg] Univer [facility]ity [facility] Diastolic blood 2019-06-19 02:16:00 79 mm[Hg] Unive rsity of pressure [facility] Heart rate 2019-06-19 02:16:00 126 /min Universi ty of [facility] Body temperature 2019-06-19 02:16:00 37.56 Karis Univ [facility] Respiratory rate 2019-06-19 02:16:00 18 /min Univ ersity of [facility] Body height 2019-06-19 02:16:00 170.2 cm [facility] Body weight 2019-06-19 02:16:00 63.957 kg [facility] BMI 2019-06-19 02:16:00 22.08 kg/m2 [facility] Oxygen saturation 2019-06-19 02:16:00 97 /min Uni versity of in Arterial blood [facility] by Pulse oximetry Branch Systolic blood 2019-06-16 19:03:00 110 mm[Hg] Univer sity of pressure [facility] Diastolic blood 2019-06-16 19:03:00 70 mm[Hg] Unive rsity of pressure [facility] Heart rate 2019-06-16 19:03:00 76 /min Universi ty of [facility] Body temperature 2019-06-16 19:03:00 36.33 Karis Univ [facility] Respiratory rate 2019-06-16 19:03:00 16 /min Univ [facility] Body height 2019-06-16 19:03:00 170.2 cm Universi ty of [facility] Body weight 2019-06-16 19:03:00 63.957 kg Universi ty of [facility] BMI 2019-06-16 19:03:00 22.08 kg/m2 Universi ty of [facility] Systolic blood 2019-05-26 16:37:00 111 mm[Hg] Univer sity of pressure [facility] Diastolic blood 2019-05-26 16:37:00 68 mm[Hg] Unive rsity of pressure [facility] Heart rate 2019-05-26 16:37:00 79 /min Universi ty of [facility] Body temperature 2019-05-26 16:37:00 36.83 Karis Univ ersity of [facility] Respiratory rate 2019-05-26 16:37:00 18 /min Univ ersity of [facility] Body height 2019-05-26 16:37:00 170.2 cm Universi ty of [facility] Body weight 2019-05-26 16:37:00 59.194 kg Universi ty of [facility] BMI 2019-05-26 16:37:00 20.44 kg/m2 [facility]i ty of [facility] Systolic blood 2019-05-24 03:00:00 111 mm[Hg] Univer sity of pressure [facility] Diastolic blood 2019-05-24 03:00:00 73 mm[Hg] Unive rsity of pressure [facility] Heart rate 2019-05-24 03:00:00 73 /min Universi ty of [facility] Respiratory rate 2019-05-24 03:00:00 16 /min Univ ersity of [facility] Oxygen saturation 2019-05-24 03:00:00 98 /min Uni versity of in Arterial blood [facility] by Pulse oximetry [place] Body temperature 2019-05-24 00:12:00 37.17 Karis Univ ersity of [facility] Body height 2019-05-24 00:12:00 170.2 cm Universi ty of [facility] Body weight 2019-05-24 00:12:00 55.792 kg Universi ty of [facility] BMI 2019-05-24 00:12:00 19.26 kg/m2 Universi ty of [facility] Systolic blood 2018-11-25 19:05:00 120 mm[Hg] Univer sity of pressure [facility] Diastolic blood 2018-11-25 19:05:00 84 mm[Hg] Unive rsity of pressure [facility] Heart rate 2018-11-25 19:05:00 67 /min [facility] Body temperature 2018-11-25 19:05:00 36.28 Karis [facility] Respiratory rate 2018-11-25 19:05:00 18 /min [facility] Body height 2018-11-25 19:05:00 170.2 cm [facility] Body weight 2018-11-25 19:05:00 50.077 kg [facility] BMI 2018-11-25 19:05:00 17.29 kg/m2 [facility] Oxygen saturation 2018-11-25 19:05:00 100 /min Uni versity of in Arterial blood [facility] by Pulse oximetry [place] Procedures Procedure Date / Time Performing Clinician Source Performed POCT TEST 2022-08-05 [facility] POCT URINALYSIS W/O 2022-08-05 00:[facility] SPECIFIC GRAVITY [facility] POCT URINALYSIS W/O 2022-06-27 00:00[facility] GRAVITY [facility] PATIENT FINANCIAL 2022-06-21 19:58:32 [facility] POCT MOLECULAR STREP 2022-01-05 21:09:00 Unknown, Attending [facility] URINALYSIS 2021-11-26 21:30:00 Cathy Dennison [facility] COVID-19 (ID NOW RAPID 2021-11-26 21:30:00 Cathy Dennison [facility] TESTING) Medical Branch CONSENT/REFUSAL FOR 2021-11-26 20:24:27 Doctor Odilon, [facility] DIAGNOSIS AND TREATMENT [facility] [place] AUTHORIZATION FOR RELEASE 2021-10-01 05:01:00 Doctor Odilon, [facility] AUTHORIZATION FOR RELEASE 2021-08-16 05:01:00 Doctor Angelaigned, [facility] [place] POCT URINALYSIS W/O 2019-09-03 20:21:00 Gilbert Headley [facility] SPECIFIC GRAVITY [facility] VACCINATIONS - CONSENTS, 2019-08-17 05:01:00 Doctor Unassigned, [facility] ELIGIBILITY, HISTORY [facility] CBC WITH DIFFERENTIAL 2019-07-27 08:54:00 Bob Simmons [facility] GALV ONLY - SYPHILIS 2019-07-27 02:58:00 Olivia Jaimes [facility] IGG/IGM [facility] HB ABO GROUPING 2019-07-26 20:25:00 Mague, [facility] o f [facility] RHO (D) IMMUNE GLOBULIN 2019-07-26 20:25:00 Bob Simmons [facility] VENOUS CORD GAS 2019-07-26 15:33:00 Olivia Jaimes [facility] PELVIS > 14 2019-07-25 21:32:[address] [facility] WEEKS [facility] US BIOPHYSICAL 2019-07-25 21:31:20 Teresa Diaz [facility] URINE CULTURE 2019-07-25 21:17:00 Teersa Diaz [facility] GROUP B STREPTOCOCCUS BY 2019-07-25 20:45:[address] [facility] PCR [facility] EXTRA TUBE SST 2019-07-25 19:36:00 Teresa Diaz [facility] SGOT (ASPARTATE AMINO 2019-07-25 19:29:00 [facility] CREATININE 2019-07-25 19:29:00 Teresa Diaz [facility] ALANINE AMINO 2019-07-25 19:29:00 Yolanda [facility] TRANSFERASE(SGPT [facility] [place] LACTATE DEHYDROGENASE 2019-07-25 19:29:00 [facility] URIC ACID 2019-07-25 19:29:00 Teresa Diaz [facility] CBC WITH DIFFERENTIAL 2019-07-25 19:29:00 [facility] HEPATITIS B SURFACE 2019-07-25 19:29:00 Yolanda [facility] ANTIGEN [facility] [place] ADC OR OLYA ONLY - RPR 2019-07-25 19:29:00 Kelsea Diaz [facility] HIV 1/2 AG-AB WITH REFLEX 2019-07-25 19:29:00 Kelsea Diaz [facility] HB ABO GROUPING 2019-07-25 19:25:00 Yolanda [facility] URINALYSIS 2019-07-25 19:19:00 Yolanda [facility] PROTEIN CREAT RATIO URINE 2019-07-25 19:19:[address] [facility] RANDOM [facility] CORONAVIRUS COVID-19 2019-07-25 19:18:00 Yolanda [facility] TESTING [facility] ASSIGNMENT OF BENEFITS 2019-07-25 18:24:02 Doctor Unassigned, [facility] [place] L&D VISIT (NON-DELIVERED) 2019-07-25 05:01:00 Doctor Odilon, [facility] POCT URINALYSIS W/O 2019-06-29 20:03:00 Cherry Noriega [facility] SPECIFIC GRAVITY [facility] ADC,CLC OR LCC ONLY - 2019-06-19 02:21:00 Glo Aggarwal [facility] INFLUENZA A & B DIRECT Medical [facility] ANTIGEN NOTICE OF PRIVACY 2019-06-19 02:13:03 Doctor Unakassandraigned, [facility] PRACTICES [facility] [place] CONSENT/REFUSAL FOR 2019-06-19 02:12:47 Doctor Odilon, [facility] DIAGNOSIS AND TREATMENT [facility] TDAP (ADACEL) 2019-06-16 19:03:37 Cherry Noriega [facility] IMMUNIZATION [facility] POCT URINALYSIS GLUCOSE & 2019-05-26 16:42:[address] [facility] PROTEIN [facility] COMP. METABOLIC PANEL 2019-05-24 01:19:00 Abhay Trevino [facility] ([id number]) [facility] CBC WITH DIFFERENTIAL 2019-05-24 01:19:00 Abhay Trevino [facility] URINALYSIS 2019-05-24 01:19:00 Abhay Trevino [facility] o f [facility] NOTICE OF PRIVACY 2019-05-23 23:56:57 Doctor Odilon [facility] PRACTICES [facility] CONSENT/REFUSAL FOR 2019-05-23 23:56:38 Doctor Odilon [facility] DIAGNOSIS AND TREATMENT [facility] [place] INSURANCE CORRESPONDENCE 2018-11-25 05:01:[address] [facility] Plan of Care Planned Activity Planned Date Details Comments Source Diagnostic Test 2021-10-29 00:00:00 afp [facility] Pending (alpha-fetoprotein), serum [code = afp (alpha-fetoprotein), serum] Diagnostic Test 2021-10-29 00:00:00 unlisted lab [code = [facility] Pending unlisted lab] Encounters Start End Encounter Admission Attending Care Care Encounter Source Date/Time Date/Time Type Type Clinicians Facility Department ID 2021-08-25 Outpatient [facility] [id number] 15:42:00 [id number] [facility] ent Clinics 2021-02-08 Emergency [facility] [id number] Univers 17:45:57 ity [facility] 2021-02-08 Outpatient P [facility] NATALI [id number] Univers 14:24:07 ity of [facility] 2021-02-08 Emergency [facility] [id number] Univers 14:23:59 ity of [facility] 2021-02-08 Outpatient P [facility] NATALI [id number] Univers 14:23:59 ity of [facility] 2021-02-08 Emergency [facility] [id number] [facility]16 Inpatient [place], [facility] [id number] [facility] 14:[facility]:[address] [facility] 2022-10-21 2022-10-21 Outpatient R SAMRA REYES [facility] B [id number] Univers 13:30:00 13:30:00 SAMRA REYES [facility] 2022-10-17 2022-10-17 Refhardy Kebede [facility] [id number] Univers 00:00:00 00:00:00 [facility] [id number] [place] [id number] Abdifatah as ROHAN?BLEA [id number] [address] OFFICE [facility] 2022-10-16 2022-10-16 Outpatient R YANDY [facility] [id number] Univers 16:00:00 17:49:02 RACHEL ity [facility] 2022-10-16 2022-10-16 Urgent Yandy [facility] [id number] Univers 16:00:00 17:49:02 Care Unknown, [facility] [id number] [place] [id number] Abdifatah as ROHAN?BLEA [id number] [address] 2022-10-16 2022-10-16 Telephone Amy SCPABLO DE LA CRUZ [id number] Univers 00:00:00 00:00:00 Samra PANTOJA [id number] [id number] [id number] [address] 2022-09-26 2022-09-26 Outpatient R SAMRA REYES [facility] B [id number] Univers 15:00:00 15:00:00 SAMRA REYES [facility] 2022-09-12 2022-09-12 Outpatient R SAMRA REYES [facility] B [id number] Univers 15:30:00 15:30:00 SAMRA ERYES [facility] 2022-09-04 2022-09-04 Patient Amy [facility] [id number] Univers 00:00:00 00:00:00 Secure Msg Samra PANTOJA [id number] [id number] [id number] [address] 2022-08-19 2022-08-19 Outpatient R SAMRA REYES [facility] B [id number] Univers 14:30:00 14:30:00 DEEPTISAMRA FERGUSON [facility] 2022-08-19 2022-08-19 Outpatient PRIV PRIV [id number] [facility] 00:00:00 00:00:00 [id number] Medica l 2022-08-08 2022-08-08 Outpatient R SAMRA REYES [facility] B [id number] [facility] 14:30:00 14:48:47 DEEPTISAMRA FERGUSON [facility] 2022-08-08 2022-08-08 Office [facility] [id number] [facility] 14:30:00 14:48:47 Visit Samra PANTOJA [id number] [id number] [id number] [address] 2022-08-06 2022-08-06 Telephone [facility] [id number] [facility] 00:00:00 00:00:00 Samra PANTOJA [id number] [id number] [id number] [address] 2022-08-05 2022-08-05 Office [facility] 1.2.840.114 [id number] [facility] 08:00:00 08:30:00 Visit Samra PANTOJA 350.1.13.10 it y of [place] [id number] [address] 2022-08-05 2022-08-05 Outpatient R DEEPTISAMRA FERGUSON [facility] B [id number] Univers 08:00:00 08:00:00 AMYSAMRAjun [facility] 2022-08-05 2022-08-05 Outpatient R DEEPTISAMRA FERGUSON [facility] B [id number] Univers 08:00:00 08:00:00 AMYSAMRAjun [facility] 2022-08-01 2022-08-01 Patient Nevin [facility] 1.2.435.989 [id number] Univers 00:00:00 00:00:00 Secure Mspatrick PANTOJA 350.1.13.10 [place] [id number] [address] 2022-08-01 2022-08-01 Telephone [facility] 1.2.840.11 4 [id number] Univers 00:00:00 00:00:00 Samra PANTOJA 350.1.13.10 it [place] [id number] [address] 2022-06-30 2022-06-30 Telephone [facility] 1..840.11 4 [id number] Univers 00:00:00 00:00:00 Samra SCARLETT 350.1.13.10 it y [place] [id number] [address] 2022-06-27 2022-06-27 Outpatient R SAMRA REYES [facility] B [id number] Univers 08:30:00 09:16:26 SAMRA REYES [facility] 2022-06-27 2022-06-27 Office [facility] 1.2.840.114 [id number] Univers 08:30:00 09:16:26 Visit Samra PANTOJA 350.1.13.10 it [place] [id number] [address] 2022-06-27 2022-06-27 Telephone [facility] 1.2.840.11 4 [id number] Univers 00:00:00 00:00:00 Samra SCARLETT 350.1.13.10 it [place] [id number] [address] 2022-06-21 2022-06-21 Outpatient R BLAS [facility] [id number] Univers 13:40:00 14:26:49 AARON ity [facility] 2022-06-21 2022-06-21 Urgent Aaron Becerra [facility] 1.2.840.114 [id number] Univers 13:40:00 14:26:49 Care Unknown, Attending HEALTH 350.1.13.10 ity of [facility] 4.2.7.2.686 Abdifatah as ROHAN?BLEA [id number] [address] MEDICAL OFFICE BUILDING 2022-06-21 2022-06-21 Orders Doctor CHRIS 1.2.840.114 [id number] Univers 00:00:00 00:00:00 Only Unassigned, JUAN 350.1.13.10 ity of [facility] 4.2.7.2.686 Abdifatah as [id number] [address] 2022-06-19 2022-06-19 Outpatient R SAMRA REYES [facility] B [id number] Univers 15:00:00 15:00:00 SAMRA REYES jun [facility] 2022-06-06 2022-06-06 Outpatient R HOMERO [facility] [id number] Univers 15:00:00 15:00:00 [facility] 2022-05-30 2022-05-30 [facility] [place] B [id number] Univers 15:00:00 15:00:00 SAMRA REYES rashawn [facility] 2022-05-29 2022-05-29 Outpatient R SAMRA REYES [facility] B [id number] Univers 15:00:00 15:00:00 AMY IVÁNALEJANDRO jun [facility] 2022-05-04 2022-05-04 Urgent Francie Wray [facility] 1.2.840.11 4 [id number] Univers 16:40:00 17:00:00 Care Unknown, Attending HEALTH 350.1.13.10 ity of [facility] 4.2.7.2.686 Abdifatah as ROHAN?BLEA [id number] [address] MEDICAL OFFICE [facility] 2022-05-04 2022-05-04 Outpatient R NILS [facility] [id number] Univers 16:40:00 16:40:00 FRANCIE morocho [facility] 2022-04-15 2022-04-15 Outpatient R SAMRA REYES [facility] B [id number] Univers 13:00:00 13:00:00 SAMRA REYES jun [facility] 2022-04-12 2022-04-12 Urgent JoshArnaldo odnohueeric [facility] 1.2.840.114 [id number] Univers 14:00:00 14:20:00 Care Unknown, Attending HEALTH 350.1.13.10 ity of [place] 4.2.7.2.686 Abdifatah as ROHAN?BLEA [id number] [address] MEDICAL OFFICE [facility] 2022-04-12 2022-04-12 Outpatient R BLAS [facility] [id number] Univers 14:00:00 14:00:00 [facility] 2022-04-12 2022-04-12 Telephone Pcp, [facility] 1.2.416.824 [id number] Univers 00:00:00 00:00:00 Patient HEALTH 350.1.13.10 it y of Does Not [place] ROHAN?BLEA [id number] [address] MEDICAL OFFICE [facility] 2022-04-12 2022-04-12 Telephone Provider, [facility] 1.2.840.114 [id number] Univers 00:00:00 00:00:00 Ang Db HEALTH 350.1.13.10 it y of Urgent Care [place] 4.2.7.2.686 [place] ROHAN?BLEA [id number] [address] MEDICAL OFFICE [facility] 2022-03-28 2022-03-28 Outpatient R SAMRA REYES [facility] B [id number] Univers 13:00:00 13:00:00 DEEPTISAMRA FERGUSON jun [facility] 2022-03-27 2022-03-27 Urgent Melisa Arrieta [facility] 1.2.840.114 [id number] Univers 16:40:00 17:00:00 Care Unknown, Attending HEALTH 350.1.13.10 ity [facility] 4.2.7.2.686 Abdifaath as ROHAN?BLEA [id number] [address] MEDICAL OFFICE BUILDING 2022-03-27 2022-03-27 Outpatient R BERNY [facility] [id number] Univers 16:40:00 16:40:00 MELISA rashwan [facility] 2022-01-06 2022-01-06 Letter CHRIS Parikh 1.2.840.114 [id number] Univers 00:00:00 00:00:00 (Out) Sarah Masters JUAN 350.1.13.10 it of [facility] 4.2.7.2.686 Abdifatah as [id number] [address] 2022-01-05 2022-01-05 [facility] [id number] Univers 16:00:00 16:32:05 ELAINA morocho [facility] 2022-01-05 2022-01-05 Urgent Charles Elaina [facility] 1.2.840.114 [id number] Univers 16:00:00 16:32:05 Care Unknown, [facility] HEALTH 350.1.13.10 itjun [facility] 4.2.7.2.686 Abdifatah as ROHAN?BLEA [id number] [address] MEDICAL OFFICE [facility] 2021-11-28 2021-11-28 Outpatient R YINKA [facility] [id number] Univers 12:40:00 13:06:39 CHRIS rashawn [facility] 2021-11-28 2021-11-28 Urgent Joshjayde Arnaldoeric [facility] 1.2.840.114 [id number] Univers 12:40:00 13:00:00 Jairo Honeycutt [facility] 350.1.13.10 itjun [facility] 4.2.7.2.686 Abdifatah as ROHAN?BLEA [id number] [address] MEDICAL OFFICE [facility] 2021-11-26 2021-11-26 Emergency X SOL, [facility] ERT [id number] Univers 15:38:00 17:49:00 CATHY amadojun [facility] 2021-11-26 2021-11-26 Emergency [facility] 1.2.385.499 [id number] Univers 15:38:00 17:49:00 Cathy [facility]OW[facility]URY [facility].1.13.10 [facility] 4.2.7.2.686 [place] [facility] [id number] [address] 2021-11-18 2021-11-18 Outpatient R [facility] [id number] Univers 18:20:00 19:17:01 SHINTA rashawn [facility] 2021-11-18 2021-11-18 Urgent Aidan Chan [facility] 1.2.840.11 4 [id number] Univers 18:20:00 19:17:01 Care Chris Honeycutt [facility] 350.1.13.10 [facility] 4.2.7.2.686 Abdifatah as ROHAN?BLEA [id number] [address] MEDICAL OFFICE [facility] 2021-11-02 2021-11-02 Outpatient GC_BVWC_Per PRIV PRIV 234 [id number] [facility] 11:40:00 11:40:00 rone_J [id number] Medica l 2021-10-29 2021-10-29 Outpatient GC_BVWC_Per PRIV PRIV 234 [id number] [facility] 12:32:00 12:32:00 rone_J [id number] Medica l 2021-10-29 2021-10-29 [facility] 18 [facility] 00:00:00 00:00:00 Hattie Lin [facility] MD: [address] GC[address]BVWC[address] [facility] [address], [place] Office* [address], [place] [address] , Ph. 2021-10-29 2021-10-29 Outpatient MAYA Lin PRIV [id number] 00:00:00 00:00:00 Olimpia [id number] 2021-10-01 2021-10-01 Orders Doctor CHRIS 1.2.840.114 [id number] Univers 00:00:00 00:00:00 Only UnassignedJUAN 350.1.13.10 ity of [place] [facility] 4.2.7.2.686 Abdifatah as [id number] [facility] [address] 2021-09-26 2021-09-26 Outpatient GC_BVWC_Per PRIV PRIV 234 [id number] [facility] 04:11:00 04:11:00 rone_J [id number] Medica l 2021-09-26 2021-09-26 Outpatient GC_BVWC_Per PRIV PRIV 234 [id number] [facility] 04:11:00 04:11:00 rone_J [id number] Medica l 2021-09-26 2021-09-26 [facility] 00:[facility]:00 00:00:00 Riley [facility] Rk kim MD: [address] [facility] [address], [place] Office* [address], [place] [address] , Ph. 2021-09-26 2021-09-26 Outpatient Riley, PRIV PRIV [id number]-[id number] 00:00:00 00:00:00 Olimpia [id number] 2021-09-19 2021-09-19 Outpatient GC_BVWC_Per PRIV PRIV 234 [id number] [facility] 12:20:00 12:20:00 rone_J [id number] Medica l 2021-08-25 2021-08-25 Office [facility] [id number] 00:00:00 00:00:00 Visit, Marino Diaz PtMisty, Level St 2 [facility] 2021-08-21 2021-08-21 Outpatient GC_BVWC_Per PRIV PRIV 234 [id number] [facility] 03:10:00 03:10:00 rone_J [id number] Medica l 2021-08-18 2021-08-18 Outpatient PRIV PRIV [id number] [facility] 11:31:00 11:31:00 [id number] Medica l 2021-08-16 2021-08-16 Outpatient GC_BVWC_Per PRIV PRIV 234 [id number] [facility] 04:18:00 04:18:00 rone_J [id number] Medica l 2021-08-16 2021-08-16 Orders Doctor CHRIS 1.2.840.114 [id number] Univers 00:00:00 00:00:00 Only Unassigned, JUAN 350.1.13.10 ity of [place] [facility] 4.2.7.2.686 Abdifatah as [phone] [facility] [address] 2021-08-16 2021-08-16 Outpatient Riley, PRIV PRIV [id number] ac-c 00:00:00 00:00:00 Olimpia [id number] 7289-05-05 2021-08-16 [facility] 00:00:00 00:00:00 Riley [facility] MD: [address] GC[address]BVWC[address] [facility] [address], [facility] Office* [address], [place] [address] , Ph. 2021-08-14 2021-08-14 Outpatient GC_BVWC_Per PRIV PRIV 234 [id number] [facility] 09:40:00 09:40:00 rone_J [id number] Medica l 2021-08-14 2021-08-14 Outpatient GC_BVWC_Per PRIV PRIV 234 [id number] [facility] 09:40:00 09:40:00 rone_J [id number] Medica l 2021-08-10 2021-08-10 Outpatient GC_BVWC_Per PRIV PRIV 234 [id number] [facility] 01:22:00 01:22:00 rone_J [id number] Medica l 2021-08-04 2021-08-04 Emergency ER Candi, STLSJX STLSJX [id number] STLSJX 10:29:00 12:34:00 Giuseppe -[id number] 2021-08-03 2021-08-03 Outpatient GC_BVWC_Per PRIV PRIV 234 [id number] [facility] 11:49:00 11:49:00 rone_J [id number] Medica l 2021-07-30 2021-07-30 Emergency ER Slater, STLSJX STLSJX [id number] STLSJX 20:31:00 23:46:00 Esto -[id number] 2021-06-18 2021-06-18 Outpatient GC_BVWC_Per PRIV PRIV 234 [id number] [facility] 08:51:00 08:51:00 rone_J [id number] Medica l 2021-06-14 2021-06-14 Outpatient GC_BVWC_Per PRIV PRIV 234 [id number] [facility] 03:55:00 03:55:00 rone_J [id number] Medica l 2021-06-14 2021-06-14 Outpatient Riley, PRIV PRIV [id number] b8-9 00:00:00 00:00:00 Olimpia [id number] 2021-06-14 2021-06-14 Olimpia [facility] 00:00:00 00:00:00 Riley [facility] MD: [address]WC[address] [facility] [address], [place] Office* [address], [place] [address] , Ph. 2021-06-13 2021-06-13 Outpatient GC_BVWC_Per PRIV PRIV 234 [id number] [facility] 09:49:00 09:49:00 rongreer_J [id number] Medica l 2021-06-09 2021-06-09 Outpatient GC_BVWC_Sou PRIV PRIV 234 [id number] [facility] 11:44:00 11:44:00 th_J [id number] Medica l 2021-05-17 2021-05-17 Outpatient GC_BVWC_Sou PRIV PRIV 234 [id number] [facility] 05:19:00 05:19:00 th_J [id number] Medica l 2021-05-14 2021-05-14 Outpatient GC_BVWC_Sou PRIV PRIV 234 [id number] [facility] 10:30:00 10:30:00 th_J [id number] Medica l 2021-05-09 2021-05-09 Outpatient GC_BVWC_Per PRIV PRIV 234 [id number] [facility] 05:50:00 05:50:00 rone_J [id number] Medica l 2021-04-23 2021-04-23 Outpatient GC_BVWC_Per PRIV PRIV 234 [id number] [facility] 05:44:00 05:44:00 rone_J [id number] Medica l 2021-04-18 2021-04-18 Outpatient GC_BVWC_Per PRIV PRIV 234 [id number] [facility] 04:05:00 04:05:00 rone_J [id number] Medica l 2020-07-04 2020-07-04 Patient Marino, [facility] 1.2.840.114 [id number] Univers 00:00:00 00:00:00 Outreach Nicolakeith NOVOA 350.1.13.10 i ty of [facility] 4.2.7.2.686 [place] [phone] Nm dical [address] 2020-04-19 2020-04-19 Laboratory Lab, Adc Fam Pob I [facility] 1.2. 840.114 [id number] Univers 15:46:49 16:06:49 Only Nadiya Simmons [facility] 350.1.13.10 ity [facility] 4.2.7.2.686 Abdifatah as Professio [phone] Nm dical nal [address] [place] [address] One 2020-04-19 2020-04-19 Outpatient R BELLA [facility] [id number] Univers 15:20:00 15:20:00 NADIYA morocho [facility] 2019-12-12 2019-12-12 Nurse CHRIS Jolly 1.2.840.114 [id number] Univers 00:00:00 00:00:00 Triage Adore JUAN 350.1.13.10 it y of [facility] 4.2.7.2.686 Abdifatah as [id number] [address] 2019-12-02 2019-12-02 Outpatient [facility] [id number] Univers 14:00:00 14:00:00 CHERRY morocho o f [facility] 2019-12-02 2019-12-02 Office [facility] 1.2.840.114 [id number] Univers 13:25:06 13:40:06 Visit Cherry R GARAGE MECHANIC 350.1.13.10 ity of [facility] 4.2.7.2.686 Abdifatah as MATERNAL [id number] [facility] & CHILD [address] [place] [address] 2019-12-01 2019-12-01 Telephone [facility] 1.2.763.078 [id number] Univers 00:00:00 00:00:00 Rosjean-pierrenda R GARAGE MECHANIC 350.1.13.10 ity of [facility] 4.2.7.2.686 Abdifatah as MATERNAL [id number] [address] 2019-11-30 2019-11-30 Telephone [facility] 1.2.983.685 [id number] [facility] 00:00:00 00:00:00 Cherry R GARAGE MECHANIC 350.1.13.10 ity of [facility] 4.2.7.2.686 Abdifatah as MATERNAL [id number] [address] 2019-11-04 2019-11-04 Office [facility] 12.840.114 [id number] Univers 14:03:07 14:46:23 Visit Cherry R GARAGE MECHANIC 350.1.13.10 ity of [facility] 4.2.7.2.686 Abdifatah as MATERNAL [id number] [facility] & [address] 2019-11-04 2019-11-04 Outpatient Liz [facility] [id number] Univers 13:45:00 13:45:00 CHERRY morocho o f [facility] 2019-11-02 2019-11-02 Nurse CHRIS Israel 1.2.840.114 [id number] Univers 00:00:00 00:00:00 Triage Francie Parker JUAN 350.1.13.10 ity of [facility] 4.2.7.2.686 Abdifatah as [id number] [address] 2019-10-13 2019-10-13 Outpatient Liz [facility] [id number] Univers 11:00:00 11:00:00 OLIVIAA ity o f [facility] 2019-09-20 2019-09-20 Office [facility] 1.2.840.114 [id number] Univers 14:22:04 14:37:04 Visit Lulúalice Hill GARAGE MECHANIC 350.1.13.10 ity of REGIONAL 4.2.7.2.686 Abdifatah as MATERNAL [id number] Med ical & CHILD [address] [place] [address] 2019-09-20 2019-09-20 Outpatient Liz [facility] [id number] Univers 13:45:00 13:45:00 ALVAREZCINDYRenetta rashawn o pepe [facility] 2019-09-08 2019-09-08 Outpatient Liz [facility] [id number] Univers 09:30:00 09:30:00 ALVAREZCINDYRenetta rashawn o pepe [facility] 2019-09-03 2019-09-[address] [facility] 1.2.602.917 [id number] Univers 15:07:52 15:51:46 Gilbert C GARAGE MECHANIC 350.1.13.10 ity of Visit REGIONAL 4.2.7.2.686 Abdifatah as MATERNAL [id number] Med ical & CHILD [address] [place] [address] 2019-09-03 2019-09-03 Outpatient R [facility] [id number] Univers 14:45:00 14:45:00 GILBERT kruse pepe [facility] 2019-09-03 2019-09-03 Telephone [facility] 1.2.314.399 [id number] Univers 00:00:00 00:00:00 [place] GARAGE MECHANIC 350.1.13.10 ity of REGIONAL 4.2.7.2.686 Abdifatah as MATERNAL [id number] [facility] & CHILD [address] [place] [address] 2019-09-03 2019-09-03 [facility] 1.2.840.114 [id number] Univers 00:00:00 00:00:00 Gilbert C GARAGE MECHANIC 350.1.13.10 ity of REGIONAL 4.2.7.2.686 Abdifatah as MATERNAL [id number] Med ical & CHILD [address] [place] [address] 2019 2019 Telephone [facility] 1.2.440.156 [id number] Univers 00:00:00 00:00:00 Cherry R GARAGE MECHANIC 350.1.13.10 ity of REGIONAL 4.2.7.2.686 Abdifatah as MATERNAL [id number] [facility] & CHILD [address] [place] [address] 2019-08-17 2019-08-17 Outpatient R [facility] [id number] Univers 13:15:00 13:15:00 LULÚCINDYRenetta ity o f [facility] 2019-08-17 2019-08-17 Telemedici [facility] 1.2.840.114 [id number] Univers 11:02:12 11:17:12 ne Visit Oliviarenetta R GARAGE MECHANIC 350.1.13.10 ity of [facility] 4.2.7.2.686 Abdifatah as MATERNAL [id number] [facility] & CHILD [address] [place] [address] 2019-08-17 2019-08-17 Orders Doctor CHRIS 1.2.840.114 [id number] Univers 00:00:00 00:00:00 Only Unassigned, JUAN 350.1.13.10 ity of [place] [facility] 4.2.7.2.686 Abdifatah as [phone] [facility] judy [address] [place] [address] 2019-08-16 2019-08-16 Telephone [facility] 1.2.412.114 [id number] Univers 00:00:00 00:00:00 Cherry R GARAGE MECHANIC 350.1.13.10 ity of REGIONAL 4.2.7.2.686 Abdifatah as MATERNAL [id number] [facility] & CHILD [address] [place] [address] 2019-08-06 2019-08-06 1.2.840.1 1.2.840.114 [id number] Univers 00:00:00 00:00:00 Encounter [id number] 350.1.13.10 ity of 3[place]104.2.7 [place][id number] [address] [facility] 2019-08-04 2019-08-04 1.2.840.1 1.2.840.114 [id number] Univers 00:00:00 00:00:00 Encounter 18290.1.1 350.1.13.10 ity of 3.104.2.7 [place].2.696 [place] .[id number] [facility] 2019-08-03 2019-08-03 1.2.840.1 1.2.840.114 [id number] Univers 00:00:00 00:00:00 Encounter 72104.1.1 350.1.13.10 ity of 3.104.2.7 [place].2.696 [place] .[id number] 570 [facility] 2019-07-29 2019-07-29 Telephone Unknown, [facility] 1.2.840.114 [id number] Univers 00:00:00 00:00:00 Attending GARAGE MECHANIC 350.1.13.10 ity of [facility] 4.2.7.2.686 Abdifaath as MATERNAL [id number] Med ical & CHILD [address] [place] [address] 2019-07-25 2019-07-28 Inpatient P TED BOSS [facility] NATALI 1 [id number] Univers 13:33:00 14:53:00 TED BOSS ity of [facility] 2019-07-25 2019-07-28 Hospital Teresa Diaz 1.2.8 40.114 [id number] Univers 13:33:00 14:53:00 Encounter Ted Boss 350.1.13.10 ity of [facility] 4.2.7.2.686 Abdifatah as [id number] [facility] [address] [place] 2019-07-27 2019-07-27 Outpatient R [facility] [id number] Univers 08:15:00 08:15:00 ROSHUNDA ity o f [facility] 2019-07-25 2019-07-25 Orders Doctor PEREZ 1.2.840.114 [id number] Univers 00:00:00 00:00:00 Only Unassigned, JUAN 350.1.13.10 ity of [place] [facility] 4.2.7.2.686 Abdifatah as [id number] [facility] [address] [place] 2019-07-15 2019-07-15 Telemedici [facility] 1.2.840.114 [id number] Univers 13:10:31 14:59:08 ne Visit Lulújean-pierrenda R GARAGE MECHANIC 350.1.13.10 ity of [facility] 4.2.7.2.686 Abdifatah as MATERNAL [id number] [facility] & CHILD [address] [place] [address] 2019-07-15 2019-07-15 Outpatient Liz [facility] [id number] Univers 13:30:00 13:30:00 ROSJEAN-PIERRENDA ity o f [facility] 2019-07-15 2019-07-15 Telephone [facility] 1.2.556.372 [id number] Univers 00:00:00 00:00:00 Rosjean-pierrenda R GARAGE MECHANIC 350.1.13.10 ity of [facility] 4.2.7.2.686 Abdifatah as MATERNAL [id number] [facility] & [address] 2019-06-30 2019-06-30 Outpatient Liz [facility] [id number] Univers 12:45:00 12:45:00 ALVAREZNDA ity o f [facility] 2019-06-29 2019-06-29 Routine [facility] 1.2.840.114 [id number] Univers 14:49:25 15:24:31 Rosjean-pierrenda R GARAGE MECHANIC 350.1.13.10 ity of Visit [facility] 4.2.7.2.686 Abdifatah as MATERNAL [id number] [facility] & [address] 2019-06-29 2019-06-29 Outpatient [facility] [id number] Univers 15:00:00 15:00:00 ROSJEAN-PIERRENDA ity o f [facility] 2019-06-26 2019-06-27 [facility] 1.2.840.114 [id number] Univers 22:23:00 00:10:00 Encounter Teresa Chowdhury 350.1.13.10 ity [facility] 4.2.7.2.686 [place] [facility] [phone] [address] 2019-06-25 2019-06-[address] [facility] [id number] Univers 00:00:00 00:00:00 Roshunda R GARAGE MECHANIC 350.1.13.10 ity of [facility] 4.2.7.2.686 Abdifatah as MATERNAL [phone] [facility] & [address] 2019-06-18 2019-06-18 [facility] 1.2.840.114 [id number] Univers 20:22:52 21:46:00 Glo Chowdhury 350.1.13.10 ity of [place] 4.2.7.2.686 [place] [id number] [address] 2019-06-16 2019-06-16 Routine [facility] 1.2.840.114 [id number] Univers 12:47:10 13:41:25 Roshunda R GARAGE MECHANIC 350.1.13.10 ity of Visit [facility] 4.2.7.2.686 Abdifatah as MATERNAL [phone] [address] 2019-06-16 2019-06-16 Outpatient [facility] [id number] Univers 12:45:00 12:45:00 ROSHUNDA ity o f [facility] 2019-05-26 2019-05-26 Routine [facility] 1.2.840.114 [id number] Univers 10:18:18 12:58:33 Roshunda R GARAGE MECHANIC 350.1.13.10 ity of Visit [facility] 4.2.7.2.686 Abdifatah as MATERNAL [phone] [address] 2019-05-23 2019-05-23 Emergency X URIEL [facility] ERT [id number] Univers 18:18:07 21:18:00 ABHAY ity of [facility] 2019-05-23 2019-05-23 Emergency [facility] 1.2.400.980 [id number] Univers 18:18:07 21:18:00 Abhay Chowdhury 350.1.13.10 i ty of [place] 4[place]2.7.2.686 [place] [phone] [address] 2019-05-23 2019-05-23 Tl PEREZ 1.2.840.114 [id number] Univers 00:00:00 00:00:00 Only Unassigned, JUAN 350.1.13.10 ity of [facility] 4.2.7.2.686 Abdifatah as [id number] [address] 2018-11-25 2018-11-25 Office [facility] 1.2.840.114 [id number] Univers 13:54:04 14:27:51 Visit Carmen Peraza 350.1.13.10 ity of Pediatric 4.2.7.2.686 Te s [facility] [phone] [address] 2018-11-25 2018-11-25 Letter [facility] 1.2.840.114 [id number] Univers 00:00:00 00:00:00 (Out) Carmen Peraza 350.1.13.10 ity of Pediatric 4.2.7.2.[address] [facility] [phone] [address] 2018-11-25 2018-11-25 Telephone [facility] 1.2.840.11 [id number] Univers 00:00:00 00:00:00 Carmen Peraza 350.1.13.10 ity of Pediatric 4.2.7.2.686 Te s [facility] [phone] [address] 2018-11-25 2018-11-25 Orders Doctor CHRIS 1.2.840.114 [id number] Univers 00:00:00 00:00:00 Only Unassigned, JUAN 350.1.13.10 ity of [facility] 4.2.7.2.686 Abdifatah as [phone] [address] Results Test Description Test Time Test Comments Results Result Comments Source POCT TEST 2022-08-05 13:45:00 Test Item Value Reference Range Interpretation Comme nts POCT PREG (test code = 1605) Negative On board controls acceptable with C Line (test code = 3574) Yes POCT PREG LOT # (test code = 3575) POCT PREG TEST DATE (test code = 3576) [facility] SPECIFIC [id number] 13:45:00 Test Item Value Reference Range Interpretation Comments POCT PH U (test code = 3254) 5 mg/dl 5-8 POCT U LEUK EST (test code = positive Negative - Negative 3263) POCT U NIT (test code = 3262) negative Negative - Negative POCT U PROT (test code = 3259) trace Negative - Negative POCT U GLU (test code = 3256) negative Negative - Negative POCT U KETONE (test code = 3258) negative Negative - Negative POCT U BLD (test code = 3257) positive Negative - Negative [facility] [id number] 13:45:00 Test Item Value Reference Range Interpretation Comments POCT PREG (test code = 1605) Negative On board controls acceptable with C Yes Line (test code = 3574) POCT PREG LOT # (test code = 3575) POCT PREG TEST DATE (test code = 3576) [facility] URINALYSIS W/O SPECIFIC [id number] 13:45:00 Test Item Value Reference Range Interpretation Comments POCT PH U (test code = 3254) 5 mg/dl 5-8 POCT U LEUK EST (test code = positive Negative - Negative 3263) POCT U NIT (test code = 3262) negative Negative - Negative POCT U PROT (test code = 3259) trace Negative - Negative POCT U GLU (test code = 3256) negative Negative - Negative POCT U KETONE (test code = 3258) negative Negative - Negative POCT U BLD (test code = 3257) positive Negative - Negative [facility] [id number] 13:45:00 Test Item Value Reference Range Interpretation Comments POCT PREG (test code = 1605) Negative On board controls acceptable with C Yes Line (test code = 3574) POCT PREG LOT # (test code = 3575) POCT PREG TEST DATE (test code = 3576) [facility] URINALYSIS W/O SPECIFIC [id number] 13:45:00 Test Item Value Reference Range Interpretation Comments POCT PH U (test code = 3254) 5 mg/dl 5-8 POCT U LEUK EST (test code = positive Negative - Negative 3263) POCT U NIT (test code = 3262) negative Negative - Negative POCT U PROT (test code = 3259) trace Negative - Negative POCT U GLU (test code = 3256) negative Negative - Negative POCT U KETONE (test code = 3258) negative Negative - Negative POCT U BLD (test code = 3257) positive Negative - Negative [facility] URINALYSIS W/O SPECIFIC [id number] 13:59:00 Test Item Value Reference Range Interpretation Comments POCT PH U (test code = 3254) 5 mg/dl 5-8 POCT U LEUK EST (test code = negative Negative - Negative 3263) POCT U NIT (test code = 3262) negative Negative - Negative POCT U PROT (test code = 3259) negative Negative - Negative POCT U GLU (test code = 3256) negative Negative - Negative POCT U KETONE (test code = 3258) negative Negative - Negative POCT U BLD (test code = 3257) negative Negative - Negative [facility] URINALYSIS W/O SPECIFIC [id number] 13:59:00 Test Item Value Reference Range Interpretation Comments POCT PH U (test code = 3254) 5 mg/dl 5-8 POCT U LEUK EST (test code = negative Negative - Negative 3263) POCT U NIT (test code = 3262) negative Negative - Negative POCT U PROT (test code = 3259) negative Negative - Negative POCT U GLU (test code = 3256) negative Negative - Negative POCT U KETONE (test code = 3258) negative Negative - Negative POCT U BLD (test code = 3257) negative Negative - Negative [facility] MOLECULAR [id number] 21:17:20 Test Item Value Reference Range Interpretation Comments POCT Molecular Strep (test code = Negative Negative 24834-2) Lab Interpretation (test code = Normal 28673-4) [facility] panel - Blood by Automated [id number] 00:00:00 Test Item Value Reference Range Interpretation [...] 0.0-0.2 [facility] [Units/volume] in Serum or [id number] 00:00:00 Test Item Value Reference Range Interpretation Comments TSH (test code = TSH) 0.958 uIU/mL 0.178-4.530 [facility]inal[facility] complete panel - [id number] 15:09:00 Test Item Value Reference Range Interpretation Comments Leukocytes (test code = Leukocytes) Negative Nitrite (test code = Nitrite) Negative Urobilinogen (test code = 0.2 Urobilinogen) Protein (test code = Protein) Trace PH (test code = PH) 7.5 Blood (test code = Blood) Negative Specific [place] (test code = 1.020 Specific [place]) Ketone (test code = Ketone) Negative Bilirubin (test code = Bilirubin) Negative Glucose (test code = Glucose) Negative Appearance (test code = Appearance) Clear Color (test code = Color) Yellow [facility]inal[facility] complete panel - [id number] 11:41:00 Test Item Value Reference Range Interpretation Comments Leukocytes (test code = Negative Leukocytes) Nitrite (test code = Negative Nitrite) Urobilinogen (test code = 1 Urobilinogen) Protein (test code = Trace Protein) PH (test code = PH) 6.5 Blood (test code = Blood) Non-Hemolyzed: Trace Specific [place] (test 1.030 code = Specific [place]) Ketone (test code = Negative Ketone) Bilirubin (test code = Negative Bilirubin) Glucose (test code = Negative Glucose) Appearance (test code = Slightly Cloudy Appearance) Color (test code = Color) Dark Yellow [facility] [id number] 20:21:00 Test Item Value Reference Range Interpretation [...] code = 3257) Neg Negative - Negative [facility] B STREPTOCOCCUS BY [id number] 15:28:00 Test Item Value Reference Range Interpretation Comments Group B Streptococcus by PCR (test Negative Negative code = 33758-8) Lab Interpretation (test code = Normal 41085-8) [facility] WorthGAL[facility] ONLY - SYPHILIS [id number] 13:34:00 Test Item Value Reference Range Interpretation Comments Syphilis IgG/IgM (test Non-reactive Non-reactive code = 17325-3) MATTHEW (test code = MATTHEW) Non-reactive - No serologic evidence of T. pallidum infection. Cannot exclude incubating or early syphilis. Submit a second specimen in 2-4 weeks if syphilis is clinically suspected. Equivocal - Further testing to follow. Reactive - Further testing to follow. Lab Interpretation (test Normal code = 05171-6) [facility] Worth[facility]INE [id number] 11:54:00 Test Item Value Reference Range Interpretation Comments URINE CULTURE (test > 100,000 CFU/mL mixed code = 630-4) aerobic organisms - suggests endogenous microbial contamination [facility] WITH [id number] 09:43:00 Test Item Value Reference Range Interpretation [...] RDW-SD (test code = 46.4 fL 38.5-49 44326-1) RDW-CV (test code = 14.9 % 11.5-14 H 788-0) PLT (test code = See_Comment H [Automated 777-3) message] The sy stem which generated this result transmitted reference range : 135 - 361 10*3/ ?L. The reference r guy was not used to interpret this result as normal/abnormal . MPV (test code = 9.9 fL 9.4-13.3 06471-0) NRBC/100 WBC (test See_Comment [Automat ed code = 8027439966) message] The system which generated this result transmitted reference range : 0.0 - 10.0 /100 WBCs. The refer ence range was not u sed to interpret th is result as normal/abnormal . NRBC x10^3 (test code <0.01 See_Comment [Auto mated = 9043720053) message] The s ystem which generated this result transmitted reference range : 10*3/?L. The reference range was not used to interpret this result as normal/abnormal . GRAN MAT (NEUT) % 71.4 % (test code = 521-8) IMM GRAN % (test code 0.70 % = 7180123424) LYMPH % (test code = 19.1 % 736-9) MONO % (test code = 7.4 % 5905-5) EOS % (test code = 1.0 % 713-8) BASO % (test code = 0.4 % 706-2) GRAN MAT x10^3(ANC) 9.83 10*3/uL 1.5-10.3 (test code = 4786819380) IMM GRAN x10^3 (test 0.09 10*3/uL 0-0.06 H code = 0341088820) LYMPH x10^3 (test code 2.62 10*3/uL 0.7-7.4 = 731-0) MONO x10^3 (test code 1.01 10*3/uL 0-0.5 H = 742-7) EOS x10^3 (test code = 0.14 10*3/uL 0-0.4 711-2) BASO x10^3 (test code 0.05 10*3/uL 0-0.1 = 704-7) Lab Interpretation Abnormal (test code = 08404-1) [facility] WorthType and Screen - ONCE [id number] 21:35:19 Test Item Value Reference Range Interpretation Comments ABO & RH (test code A POSITIVE Performe d at [facility] = 20) Laboratory Serv [facility] Blood Bank[address] [place] [address]Vhot Free: [phone] A No. [id number] IAT (test code = Negative Performed a t [facility] 1185) Laboratory Serv [facility] Blood Bank[address] [facility] s [address]Fwxq Free: [phone] A No. [id number] [facility] WorthRHO (D) IMMUNE [id number] 21:04:00 Test Item Value Reference Range Interpretation Comments RHIG CANDIDATE? No- see comment Patient i s not a (test code = candidate for R hIg- 5055) Patient is Rh Positive.Perfor med at [facility] [place] Laboratory Services - [facility] Blood [address] [place], [place] [address] Free: [phone] A No. [id number] [facility] WorthVENOUS CORD [id number] 15:51:00 Test Item Value Reference Range Interpretation Comments VENOUS BASE EXCESS, CORD mEq/L (test code = 0766531048) VENOUS PH, CORD (test 7.25-7.45 code = 6218817446) VENOUS PC02, CORD (test See_Comment H [Au tomated message] code = 5427841344) The syste m which generated this result transmitted ref erence range: 27 - 49 mmHg. The reference r guy was not used to interpret this result as normal/abnor mal. VENOUS PO2, CORD (test See_Comment L [Aut omated message] code = 1633294662) The syste m which generated this result transmitted ref erence range: 17 - 41 mmHg. The reference r guy was not used to interpret this result as normal/abnor mal. VENOUS BICARBONATE, CORD See_Comment [A utomated message] (test code = 1896149896) The system which generated this result transmitted ref erence range: 12 - 29 mEq/L. The reference r guy was not used to interpret this result as normal/abnor mal. Lab Interpretation (test Abnormal code = 04607-1) [facility] WorthARTERIAL CORD [id number] 15:45:00 Test Item Value Reference Range Interpretation Comments BASE EXCESS, CORD mEq/L (test code = 5991925263) AC PH, CORD (BEAKER) 7.18-7.38 (test code = 7720078087) PC02, CORD (test code See_Comment [Auto mated message] The = 7431165656) system which g enerated this result transmit elisabeth reference range : 32 - 66 mmHg. The refer ence range was not used to interpret this result as normal/abnormal . PO2, CORD (test code See_Comment [Autom ated message] The = 8570793758) system which g enerated this result transmit elisabeth reference range : 10 - 30 mmHg. The refer ence range was not used to interpret this result as normal/abnormal . BICARBONATE, CORD See_Comment [Automate d message] The (test code = system which ge nerated this 1612846922) result transmit elisabeth reference range : 17 - 27 mEq/L. The refe rence range was not used to interpret this result as normal/abnormal . [facility] WorthADC OR OLYA ONLY - [id number] 08:22:00 Test Item Value Reference Range Interpretation Comments RPR (Qualitative) (test code = Nonreactive Nonreactive 21694-6) Lab Interpretation (test code = Normal 32284-0) [facility] WorthProtein CREAT Ratio Urine [id number] 00:50:00 Test Item Value Reference Range Interpretation Comments T. PROT U (test >1000 mg/dL code = 2888-6) CREAT U (test code 149.6 mg/dL = 7695741661) Protein/Creatinine Unable to calculate Ratio Urine (test because, e ither urine code = 1363890095) total pro tein, urine creatinine, or both are greater than th e linearity of th e analyzer. [facility] WorthHEPATITIS B SURFACE [id number] 23:04:00 Test Item Value Reference Range Interpretation Comments HBsAg Semi-Quantitative (test code = Negative Negative 5195-3) [facility] WorthHIV 1/2 AG-AB WITH [id number] 22:50:00 Test Item Value Reference Range Interpretation Comments HIV Negative Negative Semi-quantitative (test code = 38006-1) MATTHEW (test code = Non-reactive for HIV-1 MATTHEW) antigen and HIV-1/HIV-2 antibodies. ?No laboratory evidence of HIV infection. ?Repeat in 2-4 weeks if acute HIV infection is suspected. [facility] WorthUS PELVIS > 14 [id number] 21:56:331. Single live intrauterine with size equals dates. 2. Normal biophysical profile. RL: 3901AFC: 98846 End of report EXAM: US PELVIS > [...] 11/19. [facility], Radiant Results Inft User - 07/26/2019 2:41 PM CDTEXAM: US PELVIS > 14 WEEKS, US BIOPHYSICAL PROFILEOrdering Physician: TERESA DIAZ HISTORY: Abdominal pain. Hypertension. Possible preeclampsia.COMPARISON: nonePermanently [...] size equals dates.2. Normal biophysical profile.RL: 3901AFC: 89178Vkq of report [facility] US BIOPHYSICAL [id number] 21:55:081. Single live intrauterine with size equals dates. 2. Normal biophysical profile. RL: 3901AFC: 86467 End of report EXAM: US PELVIS > [...] fluid volume for a total of 8/8. [facility], Radiant Results Inft User - 07/25/2019 4:56 PM CDTEXAM: US PELVIS > 14 WEEKS, US BIOPHYSICAL PROFILEOrdering Physician: TERESA DIAZ HISTORY: Abdominal pain. Hypertension. Possible preeclampsia.COMPARISON: nonePermanently [...] size equals dates.2. Normal biophysical profile.RL: 3901AFC: 77744Lqu of report UnCH[facility] TylerType and Screen - ONCE [id number] 20:25:29 Test Item Value Reference Range Interpretation Comments ABO & RH (test code A Positive Performe d at [facility] [place] = 20) Laboratory Serv [facility] Blood [address] [place], [place] [address]Toll Free: [phone] A No. [id number] IAT (test code = Negative Performed a t [facility] 1185) Laboratory Serv [facility] Blood [address] [place], [place] [address]Toll Free: [phone] A No. [id number] [facility] WorthAlanine Amino Transferase (SGPT)2019-07-25 20:14:00 Test Item Value Reference Range Interpretation Comments ALTv (test code = 1742-6) 22 U/L 5-35 Lab Interpretation (test code = Normal 42731-6) [facility] WorthUric Acid [id number] 20:13:00 Test Item Value Reference Range Interpretation Comments URIC ACID (test code = 9227408223) 4.3 mg/dL 2.9-6 Lab Interpretation (test code = Normal 50363-2) [facility] WorthSerum [id number] 20:13:00 Test Item Value Reference Range Interpretation Comments CREATININE (test code = 0.39 mg/dL 0.5-1.04 L 8123629574) eGFR Calculation mL/min/1.73m2 (Non-) (test code = 4554688564) eGFR Calculation mL/min/1.73m2 () (test code = 3037946163) MATTHEW (test code = MATTHEW) Association of [...] tests). Lab Interpretation Abnormal (test code = 36960-6) [facility] WorthSGOT (Asparate Amino Transfer)2019-07-25 20:13:00 Test Item Value Reference Range Interpretation Comments AST(SGOT) (test code = 5539242401) 37 U/L 13-40 Lab Interpretation (test code = Normal 86330-7) [facility] WorthLactate [id number] 20:13:00 Test Item Value Reference Range Interpretation Comments LDH (test code = 9045291288) 556 U/L 300-600 Lab Interpretation (test code = Normal 28654-8) [facility] WorthUrinalysis2020-04-12 20:12:00 Test Item Value Reference Range Interpretation Comments APPEARANCE (test code = Hazy Clear A 3189025653) COLOR (test code = Yellow Yellow 3845884946) PH (test code = 4.8-8.0 7728165898) SP GRAVITY (test code = 1.003-1.030 7469341637) GLU U QUAL (test code = Normal Normal 2255864466) BLOOD (test code = Negative Negative 0168168197) KETONES (test code = Negative Negative 9721583126) PROTEIN (test code = 100 mg/dL Negative A 2887-8) UROBILIN (test code = Normal Normal 9305811623) BILIRUBIN (test code = Negative Negative 6334343308) NITRITE (test code = Negative Negative 3030741521) LEUK VASQUEZ (test code = Negative Negative 8777401610) RBC/HPF (test code = See_Comment [Autom ated message] 0602681820) The system Kasenna generated this result transmit elisabeth reference range : 0 - 3 HPF. The refe rence range was not u sed to interpret th is result as normal/abnormal . WBC/HPF (test code = See_Comment H [Autom ated message] 5441984670) The system Kasenna generated this result transmit elisabeth reference range : 0 - 5 HPF. The refe rence range was not u sed to interpret th is result as normal/abnormal . BACTERIA (test code = Many Negative A 0284761960) MUCOUS (test code = Slight Negative LPF A 2229359878) SQ EPITH (test code = HPF 9993218232) HYAL CAST (test code = See_Comment H [Aut omated message] 0731505892) The system Kasenna generated this result transmit elisabeth reference range : <=2 LPF. The refere nce range was not u sed to interpret th is result as normal/abnormal . TRANS EPI (test code = See_Comment [Aut omated message] 9523482442) The system Kasenna generated this result transmit elisabeth reference range : <=1 HPF. The refere nce range was not u sed to interpret th is result as normal/abnormal . ROMELIA EPITH (test code = See_Comment [Aut omated message] 9085899021) The system Kasenna generated this result transmit elisabeth reference range : <=1 HPF. The refere nce range was not u sed to interpret th is result as normal/abnormal . WBC CAST (test code = See_Comment H [Auto mated message] 0054587169) The system Kasenna generated this result transmit elisabeth reference range : <=1 LPF. The refere nce range was not u sed to interpret th is result as normal/abnormal . GRAN CASTS (test code = See_Comment [Au tomated message] 3226551057) The system [employer] generated this result transmit elisabeth reference range : <=1 LPF. The refere nce range was not u sed to interpret th is result as normal/abnormal . Lab Interpretation (test Abnormal code = 95339-4) [facility] WITH [id number] 19:56:00 Test Item Value Reference Range Interpretation [...] RDW-SD (test code = 42.6 fL 38.5-49 68621-1) RDW-CV (test code = 13.9 % 11.5-14 788-0) PLT (test code = See_Comment H [Automated 777-3) message] The sy stem which generated this result transmitted reference range : 135 - 361 10*3/ ?L. The reference r guy was not used to interpret this result as normal/abnormal . MPV (test code = 10.0 fL 9.4-13.3 76056-9) NRBC/100 WBC (test See_Comment [Automat ed code = 9323318516) message] The system which generated this result transmitted reference range : 0.0 - 10.0 /100 WBCs. The refer ence range was not u sed to interpret th is result as normal/abnormal . NRBC x10^3 (test code <0.01 See_Comment [Auto mated = 6419665596) message] The s ystem which generated this result transmitted reference range : 10*3/?L. The reference range was not used to interpret this result as normal/abnormal . GRAN MAT (NEUT) % 69.6 % (test code = 770-8) IMM GRAN % (test code 0.50 % = 6119089331) LYMPH % (test code = 18.8 % 736-9) MONO % (test code = 8.1 % 5905-5) EOS % (test code = 2.6 % 713-8) BASO % (test code = 0.4 % 706-2) GRAN MAT x10^3(ANC) 7.80 10*3/uL 1.5-10.3 (test code = 4678810336) IMM GRAN x10^3 (test 0.06 10*3/uL 0-0.06 code = 3296552747) LYMPH x10^3 (test code 2.11 10*3/uL 0.7-7.4 = 731-0) MONO x10^3 (test code 0.91 10*3/uL 0-0.5 H = 742-7) EOS x10^3 (test code = 0.29 10*3/uL 0-0.4 711-2) BASO x10^3 (test code 0.05 10*3/uL 0-0.1 = 704-7) Lab Interpretation Abnormal (test code = 74533-1) [facility] WorthCORONAVIRUS COVID-19 [id number] 19:49:00 Test Item Value Reference Range Interpretation Comments SARS-CoV-2 (test code = Not Detected Not Detected 48150-2) MATTHEW (test code = MATTHEW) ID NOW COVID-19 Assay is an isothermal nucleic acid amplification test intended for the qualitative detection of nucleic acid from SARS-CoV-2 viral RNA in nasopharyngeal (OFFICE ASST) specimens. It is used under Emergency Use [...] indicated. Lab Interpretation Normal (test code = 42224-7) [facility] URINALYSIS W/O SPECIFIC [id number] 20:03:00 Test Item Value Reference Range Interpretation [...] Negative Lab Interpretation (test code = Abnormal 67673-9) [facility] URINALYSIS W/O SPECIFIC [id number] 20:03:00 Test Item Value Reference Range Interpretation [...] Negative Lab Interpretation (test code = Abnormal 01477-0) [facility] WorthAD,[facility] - INFLUENZA A & B DIRECT [id number] 03:20:00 Test Item Value Reference Range Interpretation Comments Influenza A (test code = 35145-5) Negative Negative Influenza B (test code = 64453-1) Negative Negative Lab Interpretation (test code = Normal 93291-7) [facility] URINALYSIS GLUCOSE & PROTEIN 2019-05-26 16:42:00 Test Item Value Reference Range Interpretation Comments POCT U PROT (test code = 3259) trace Negative - Negative POCT U GLU (test code = 3256) neg Negative - Negative Lab Interpretation (test code = Abnormal 30723-4) [facility] URINALYSIS W/O SPECIFIC [id number] 16:42:00 Test Item Value Reference Range Interpretation [...] Negative Lab Interpretation (test code = Abnormal 09768-5) [facility] URINALYSIS GLUCOSE & PROTEIN 2019-05-26 16:42:00 Test Item Value Reference Range Interpretation Comments POCT U PROT (test code = 3259) trace Negative - Negative POCT U GLU (test code = 3256) neg Negative - Negative Lab Interpretation (test code = Abnormal 32092-9) [facility] URINALYSIS W/O SPECIFIC [id number] 16:42:00 Test Item Value Reference Range Interpretation [...] Negative Lab Interpretation (test code = Abnormal 18062-1) [facility] URINALYSIS GLUCOSE & PROTEIN 2019-05-26 16:42:00 Test Item Value Reference Range Interpretation Comments POCT U PROT (test code = 3259) trace Negative - Negative POCT U GLU (test code = 3256) neg Negative - Negative Lab Interpretation (test code = Abnormal 60313-9) [facility] URINALYSIS W/O SPECIFIC [id number] 16:42:00 Test Item Value Reference Range Interpretation [...] Negative Lab Interpretation (test code = Abnormal 73735-7) [facility] URINALYSIS GLUCOSE & PROTEIN 2019-05-26 16:42:00 Test Item Value Reference Range Interpretation Comments POCT U PROT (test code = 3259) trace Negative - Negative POCT U GLU (test code = 3256) neg Negative - Negative Lab Interpretation (test code = Abnormal 34971-7) [facility] URINALYSIS W/O SPECIFIC [id number] 16:42:00 Test Item Value Reference Range Interpretation [...] Negative Lab Interpretation (test code = Abnormal 77868-0) [facility]. METABOLIC PANEL (27522)2019-05-24 01:58:00 Test Item Value Reference Range Interpretation Comments NA (test code = 138 mmol/L 135-145 3327974542) K (test code = 3.2 mmol/L 3.5-5 L 0729255614) CL (test code = 106 mmol/L 98-108 6291958276) CO2 TOTAL (test code = 23 mmol/L 23-31 6068061321) AGAP (test code = 2-16 6094271840) BUN (test code = 3 mg/dL 7-23 L 5882038579) GLUCOSE (test code = 89 mg/dL 70-110 2082843639) CREATININE (test code = 0.31 mg/dL 0.5-1.04 L 7033950738) TOTAL BILI (test code = <0.1 0.1-1.1 L 2641924392) CALCIUM (test code = 8.9 mg/dL 8.6-10.6 6701368215) T PROTEIN (test code = 6.7 g/dL 6.3-8.2 6955425803) ALBUMIN (test code = 3.8 g/dL 3.5-5 9665843350) ALK PHOS (test code = 98 U/L 34-122 2323218867) ALTv (test code = 12 U/L 5-35 1742-6) AST(SGOT) (test code = 22 U/L 13-40 9448689190) eGFR Calculation mL/min/1.73m2 (Non-) (test code = 8293891606) eGFR Calculation mL/min/1.73m2 () (test code = 2921089834) MATTHEW (test code = MATTHEW) Association of [...] tests). Lab Interpretation Abnormal (test code = 02360-2) [facility] WorthURINALYSIS2020-02-10 01:55:00 Test Item Value Reference Range Interpretation Comments APPEARANCE (test code = Cloudy Clear A 6708228047) COLOR (test code = Yellow Yellow 3659132723) PH (test code = 4.8-8.0 4780715039) SP GRAVITY (test code = 1.003-1.030 5274565343) GLU U QUAL (test code = Normal Normal 9534926456) BLOOD (test code = Negative Negative [id number]) KETONES (test code = Negative Negative 3552964335) PROTEIN (test code = Negative Negative 2887-8) UROBILIN (test code = 2.0 mg/dL Normal A 3883251981) BILIRUBIN (test code = Negative Negative 7088181752) NITRITE (test code = Negative Negative 2674004722) LEUK VASQUEZ (test code = 500/uL Negative A 4546169127) RBC/HPF (test code = See_Comment H [Autom ated message] 2549326411) The system Kasenna generated this result transmit elisabeth reference range : 0 - 3 HPF. The refe rence range was not u sed to interpret th is result as normal/abnormal . WBC/HPF (test code = See_Comment H [Autom ated message] 0336616088) The system Kasenna generated this result transmit elisabeth reference range : 0 - 5 HPF. The refe rence range was not u sed to interpret th is result as normal/abnormal . BACTERIA (test code = Many Negative A 8580117890) MUCOUS (test code = Moderate Negative LPF A 0868727426) SQ EPITH (test code = HPF 2767340762) TRANS EPI (test code = <1 See_Comment [Aut omated message] 3397465161) The system Kasenna generated this result transmit elisabeth reference range : <=1 HPF. The refere nce range was not u sed to interpret th is result as normal/abnormal . ROMELIA EPITH (test code = <1 See_Comment [Aut omated message] 5781710482) The system Kasenna generated this result transmit elisabeth reference range : <=1 HPF. The refere nce range was not u sed to interpret th is result as normal/abnormal . Lab Interpretation (test Abnormal code = 43320-2) [facility] WITH [id number] 01:28:00 Test Item Value Reference Range Interpretation [...] (test code = 38.2 fL 38.5-49 L 64565-0) RDW-CV (test code = 11.9 % 11.5-14 788-0) PLT (test code = See_Comment [Automated 777-3) message] The sy stem which generated this result transmitted reference range : 135 - 361 10*3/ ?L. The reference r guy was not used to interpret this result as normal/abnormal . MPV (test code = 9.8 fL 9.4-13.3 38473-1) NRBC/100 WBC (test See_Comment [Automat ed code = 1098308660) message] The system which generated this result transmitted reference range : 0.0 - 10.0 /100 WBCs. The refer ence range was not u sed to interpret th is result as normal/abnormal . NRBC x10^3 (test code <0.01 See_Comment [Auto mated = 4335903022) message] The s ystem which generated this result transmitted reference range : 10*3/?L. The reference range was not used to interpret this result as normal/abnormal . GRAN MAT (NEUT) % 65.5 % (test code = 770-8) IMM GRAN % (test code 0.50 % = 6617609321) LYMPH % (test code = 23.4 % 736-9) MONO % (test code = 7.4 % 5905-5) EOS % (test code = 2.7 % 713-8) BASO % (test code = 0.5 % 706-2) GRAN MAT x10^3(ANC) 6.10 10*3/uL 1.5-10.3 (test code = 2699139232) IMM GRAN x10^3 (test 0.05 10*3/uL 0-0.06 code = 1063178617) LYMPH x10^3 (test code 2.18 10*3/uL 0.7-7.4 = 731-0) MONO x10^3 (test code 0.69 10*3/uL 0-0.5 H = 742-7) EOS x10^3 (test code = 0.25 10*3/uL 0-0.4 711-2) BASO x10^3 (test code 0.05 10*3/uL 0-0.1 = 704-7) Lab Interpretation Abnormal (test code = 72396-2) [facility]
--- NOTE | 2022-10-20 11:34 | ER ---
Nurse's Notes [facility] Name: Kaleigh Alston Age: 22 yrs Sex: Female : 2000 Arrival Date: 10/20/2022 Time: 10:57 Bed 5 Private MD: Diagnosis: Nonpurulent mastitis associated with ;Mastitis without abscess Presentation: 10/20 11:14 Chief complaint: Patient states: her left breast is infected with mastitis. patient ap3 states she has been on antibiotics for approx 4 days, but she is not feeling any improvement, nor is she able to express milk. Coronavirus screen: At this time, the client does not indicate any symptoms associated with coronavirus-19. Ebola Screen: No symptoms or risks identified at this time. Initial Sepsis Screen: Does the patient meet any 2 criteria? No. Patient's initial sepsis screen is negative. Does the patient have a suspected source of infection? No. Patient's initial sepsis screen is negative. Risk Assessment: Do you want to hurt yourself or someone else? Patient reports no desire to harm self or others. Onset of symptoms was October 16, 2022. 11:14 Method Of Arrival: Ambulatory ap3 11:14 Acuity: FRANK 4 ap3 Triage Assessment: 11:16 General: Appears in no apparent distress. Behavior is calm, cooperative, appropriate ap3 for age. Pain: Complains of pain in left breast Pain currently is 6 out of 10 on a pain scale. Pain began 2-3 days ago. Neuro: Level of Consciousness is awake, alert, obeys commands, Oriented to person, place, time, situation. Cardiovascular: Patient's skin is warm and dry. Respiratory: Airway is patent Respiratory effort is even, unlabored, Respiratory pattern is regular, symmetrical. [employer]BER: 11:17 LMP N/A - ap3 Historical: - Allergies: 11:16 Amoxicillin; gets yeast infection; ap3 - Home Meds: 11:16 None [Active]; ap3 - PMHx: 11:16 None; ap3 - PSHx: 11:16 Appendectomy; ap3 - Immunization history:: Client reports having NOT received the Covid vaccine. - Social history:: Smoking status: Patient denies any tobacco usage or history of. - Family history:: not pertinent. Screenin:17 [facility] ED Fall Risk Assessment (Adult) History of falling in the last 3 months, ap3 including since admission No falls in past 3 months (0 pts). Abuse screen: Denies threats or abuse. Nutritional screening: No deficits noted. Tuberculosis screening: No symptoms or risk factors identified. Vital Signs: 11:14 BP 123 / 78; Pulse 76; Resp 17; Temp 98.4; Pulse Ox 99% ; Weight 63.5 kg; Height 5 ft. ap3 7 in. ; Pain 6/10; 11:14 Body Mass Index 21.93 (63.50 kg, 170.18 cm) ap3 11:14 Pain Scale: Adult ap3 ED Course: 10:59 Patient arrived in ED. ts1 11:16 Triage completed. ap3 11:17 Arm band placed on right wrist. ap3 11:20 Fabian Sutton MD is Attending Physician. coco 11:23 Tu Farrell, RN is Primary Nurse. bp 11:56 No provider procedures requiring assistance completed. Patient did not have IV access eh3 during this emergency room visit. 11:57 Patient has correct armband on for positive identification. eh3 Administered Medications: 11:52 Drug: CeFAZolin IM 1 grams Route: IM; Site: left deltoid; bp 11:57 Follow up: Response: No adverse reaction eh3 Medication: 11:57 VIS not applicable for this client. eh3 Outcome: 11:34 Discharge ordered by . [facility] 11:57 Discharged to home ambulatory. eh3 11:57 Condition: stable 11:57 Discharge instructions given to patient, Instructed on discharge instructions, follow up and referral plans. Demonstrated understanding of instructions, follow-up care. 11:57 Patient left the ED. eh3 Signatures: Fabian Sutton MD MD cha Peltier, Brian, RN RN bp Melisa Mcintosh RN RN ap3 Shonna Ge RN RN eh3 [place] PAS PAS ts1
--- NOTE | 2022-10-20 11:34 | EDPHYS ---
Physician Documentation [facility] Name: Kaleigh Alston Age: 22 yrs Sex: Female : 2000 Arrival Date: 10/20/2022 Time: 10:57 Bed 5 Private MD: JANAE Physician Fabian Sutton HPI: 10/20 11:28 This 22 yrs old Female presents to ER via Ambulatory with complaints of Breast coco Problem. 11:28 The patient presents with cellulitis of the left breast. Description: The affected area coco is small, irregular, erythematous. Onset: The symptoms/episode began/occurred 5 day(s) ago. Possible cause(s): unknown. Associated signs and symptoms: The patient has no apparent associated signs or symptoms. Modifying factors: the symptoms are alleviated by nothing, the symptoms are aggravated by breast feeding. Severity of symptoms: At their worst the symptoms were mild, in the emergency department the symptoms are unchanged. The patient has experienced similar episodes in the past, a few times. [employer]: 11:17 LMP N/A - ap3 Historical: - Allergies: 11:16 Amoxicillin; gets yeast infection; ap3 - Home Meds: 11:16 None [Active]; ap3 - PMHx: 11:16 None; ap3 - PSHx: 11:16 Appendectomy; ap3 - Immunization history:: Client reports having NOT received the Covid vaccine. - Social history:: Smoking status: Patient denies any tobacco usage or history of. - Family history:: not pertinent. ROS: 11:28 Constitutional: Negative for fever, chills, and weight loss, Eyes: Negative for injury, coco pain, redness, and discharge, ENT: Negative for injury, pain, and discharge, Neck: Negative for injury, pain, and swelling, Cardiovascular: Negative for chest pain, palpitations, and edema, Respiratory: Negative for shortness of breath, cough, wheezing, and pleuritic chest pain, Abdomen/GI: Negative for abdominal pain, nausea, vomiting, diarrhea, and constipation, Back: Negative for injury and pain, : Negative for injury, bleeding, discharge, and swelling, MS/Extremity: Negative for injury and deformity, Neuro: Negative for headache, weakness, numbness, tingling, and seizure, Psych: Negative for depression, anxiety, suicide ideation, homicidal ideation, and hallucinations, Allergy/Immunology: Negative for hives, rash, and allergies, Endocrine: Negative for neck swelling, polydipsia, polyuria, polyphagia, and marked weight changes, Hematologic/Lymphatic: Negative for swollen nodes, abnormal bleeding, and unusual bruising. 11:28 Skin: Positive for erythema, of the left nipple and left breast. Exam: 11:28 Constitutional: This is a well developed, well nourished patient who is awake, alert, coco and in no acute distress. Head/Face: Normocephalic, atraumatic. Eyes: Pupils equal round and reactive to light, extra-ocular motions intact. Lids and lashes normal. Conjunctiva and sclera are non-icteric and not injected. Cornea within normal limits. Periorbital areas with no swelling, redness, or edema. ENT: Nares patent. No nasal discharge, no septal abnormalities noted. Tympanic membranes are normal and external auditory canals are clear. Oropharynx with no redness, swelling, or masses, exudates, or evidence of obstruction, uvula midline. Mucous membranes moist. Neck: Trachea midline, no thyromegaly or masses palpated, and no cervical lymphadenopathy. Supple, full range of motion without nuchal rigidity, or vertebral point tenderness. No Meningismus. Chest/axilla: Normal chest wall appearance and motion. Nontender with no deformity. No lesions are appreciated. Cardiovascular: Regular rate and rhythm with a normal S1 and S2. No gallops, murmurs, or rubs. Normal PMI, no JVD. No pulse deficits. Respiratory: Lungs have equal breath sounds bilaterally, clear to auscultation and percussion. No rales, rhonchi or wheezes noted. No increased work of breathing, no retractions or nasal flaring. Abdomen/GI: Soft, non-tender, with normal bowel sounds. No distension or tympany. No guarding or rebound. No evidence of tenderness throughout. Back: No spinal tenderness. No costovertebral tenderness. Full range of motion. MS/ Extremity: Pulses equal, no cyanosis. Neurovascular intact. Full, normal range of motion. Neuro: Awake and alert, GCS 15, oriented to person, place, time, and situation. Cranial nerves II-XII grossly intact. Motor strength 5/5 in all extremities. Sensory grossly intact. Cerebellar exam normal. Normal gait. Psych: Awake, alert, with orientation to person, place and time. Behavior, mood, and affect are within normal limits. 11:28 Skin: Appearance: normal except for affected area, cellulitis, that is minimal, improved , no redness at this time. Vital Signs: 11:14 BP 123 / 78; Pulse 76; Resp 17; Temp 98.4; Pulse Ox 99% ; Weight 63.5 kg; Height 5 ft. ap3 7 in. ; Pain 6/10; 11:14 Body Mass Index 21.93 (63.50 kg, 170.18 cm) ap3 11:14 Pain Scale: Adult ap3 MDM: 11:21 Patient medically screened. coco Administered Medications: 11:52 Drug: CeFAZolin IM 1 grams Route: IM; Site: left deltoid; bp 11:57 Follow up: Response: No adverse reaction eh3 Disposition Summary: 10/20/22 11:34 Discharge Ordered Location: Home coco Problem: new coco Symptoms: have improved coco Condition: Stable coco Diagnosis - Nonpurulent mastitis associated with coco - Mastitis without abscess coco Followup: coco - With: Private Physician - When: 2 - 3 days - Reason: Recheck today's complaints, Continuance of care, Re-evaluation by your physician Discharge Instructions: - Discharge Summary Sheet coco - Mastitis coco - and Mastitis coco - Mastitis, [id number] [facility] Forms: - Medication Reconciliation Form coco - Thank You Letter coco - Antibiotic Education coco - Prescription Opioid Use coco - [email or web address] [facility] Signatures: Fabian Sutton MD MD cha Peltier, Brian RN RN Melisa Mcintosh RN RN 3 Shonna Ge RN 3
[2022-10-20] MEDS ORDERED: CEFAZOLIN SODIUM 1 GM/VIAL ONE (11:57)
[2022-10-20 12:21] VITALS: TEMP 98
[2022-10-20 12:23] VITALS: BP 150/98; O2SAT 98
== END 2022-10-20 11:57 | disposition home or self-care (01) ==
LOC: ER 10:57
DX: O91.23 Nonpurulent mastitis associated with lactation (principal); Z88.1 Allergy status to other antibiotic agents
CPT/HCPCS: 96372; 99284; J0690

== ENCOUNTER 2024-05-15 07:03 | Emergency (ER) | payer OTHER, SELFPAY ==
--- OUTSIDE RECORDS SUMMARY | 2024-05-15 07:21 | XMS REPORT | Continuity of Care Document ---
Author Name Unknown Address [address] [facility] [address] [place] [address] [facility] thconnect Address [address] [facility] [address] [place] [address] Care Team Providers Care Criminal Researcher Name Role Phone Shonna Moura Primary Care Physician [phone] Ravi Kennedy Attending Clinician Unavailable Alexandro Jaimes Attending Clinician Unavailable Wolfgang Wolf Attending Clinician Unavailable AARON BECERRA Attending Clinician Unavailable Aaron Matute Attending Clinician [phone] Unknown, Attending Attending Clinician Unavailab ASHIA Haji Attending Clinician Unavailable Percy PROPELLANT CHARGE LOADER, Ashia Attending Clinician [phone] SAMRA REYES Attending Clinician UnavailSAMRA Mcnamara Attending Clinician Unavaila abundio Doctor Unassigned, [place] Attending Clinician U NIKOLE Esteves Attending Clinician NIKOLE Obrien Attending Clinician RACHEL Mcduffie Attending Clinician Unavailable Rachel Kebede PA-C Attending Clinician [phone] Francie Rooney MA Attending Clinician Unavailab AURORA Ribeiro Attending Clinician Unavailable Marco Antonio BOLDEN, Francie Attending Clinician [phone] FRANCIE WRAY Attending Clinician Unavailable Pcp, Patient Does Not Have A Attending Clinician Provider, [facility] Attending Clinician Unavailable Melisa Arrieta MD Attending Clinician [phone] MELISA ARRIETA Attending Clinician Unavailable Sarah Parikh RN Attending Clinician Unavailab ELAINA Sevilla Attending Clinician Unavailable Charles PROPELLANT CHARGE LOADER, Elaina Attending Clinician [phone] CHRIS HONEYCUTT Attending Clinician Unavailable Chris Honeycutt PA-C Attending Clinician [phone] CATHY DENNISON Attending Clinician Unavailable Cathy Whitten Attending Clinician [phone] SUSAN BERMUDEZ Attending Clinician Unavailable Susan Bunch Attending Clinician [phone] [facility] Attending Clinician UnavailOlimpia Evans Attending Clinician [phone] Giuseppe Christopher Attending Clinician UnaChristopher Davis Attending Clinician Unavailable _[facility]_J Attending Clinician Unavailable Nicola Pichardo DO Attending Clinician [phone] Lab, [facility] Pob I Attending Clinician Unavailab Nadiya Carlin Attending Clinician [phone] NADIYA BLANCO Attending Clinician Unavailable Adore Jolly RN Attending Clinician Unavailabl mark NORIEGA, ROSHUNDA R Attending Clinician Unavailab hansel Noriega PROPELLANT CHARGE LOADER, [place] Attending Clinician + [phone] Jhonatan BAI, Francie Parker Attending Clinician Unavaila abundio Headley WHCNP, Gilbert Gómez Attending Clinician + GILBERT HEADLEY Attending Clinician Unavail able TED BOSS Attending Clinician Unavailable TED BOSS Attending Clinician Unavailable Teresa Diaz MD Attending Clinician + [phone] Ted Boss MD Attending Clinician [phone] Glo Aggarwal DO Attending Clinician [phone] ABHAY TREVINO Attending Clinician Unavailable Abhay Mtz Attending Clinician [phone] Carmen Buck MD Attending Clinician + [phone] TERESA DIAZ Admitting Clinician Unavaila SYD Lea Admitting Clinician Unavailable SAMRA REYES Admitting Clinician Unavaila abundio GC_[facility]_J Admitting Clinician Unavailabl e GC_[facility]South_J Admitting Clinician Unavailable TED BOSS Admitting Clinician Unavailable Ted Boss MD Admitting Clinician [phone] Teresa Diaz MD Admitting Clinician + [phone] Payers Payer Name Policy Type Policy Number Effective Date Expirati on Date Source [facility] [id number] 00:00:00 [facility] [place] [facility] [id number] 00:00:00 [facility] (MEDICAID HMO) [id number] [place] [id number] 2019 00:00:00 Problems Condition Name Condition Details Condition Category Status Onset Date Resolution Date Last Treatment Date Treating Clinician Comments Source Antibiotic causing adverse effect Antibiotic causing adverse effect Disease Active 4-24 00:00: 00 [facility] jail (current) use of antibiotic s jail (current) use of antibiotic s Disease Active 3-16 00:00: 00 [facility] Dysuria Dysuria Disease Active 0 3-16 00:00: 00 [facility] External thrombosed hemorrhoid s External thrombosed hemorrhoid s Disease Active 0 3-16 00:00: 00 [facility] Personal history of allergy to penicillin Personal history of allergy to penicillin Disease Active 0 3-16 00:00: 00 [facility] (spontaneo us vaginal delivery) (spontaneo us vaginal delivery) Disease Active 2021-04 2-05 00:00: 00 [facility] History of pre-eclamp eliel in prior , currently in third trimester History of pre-eclamp eliel in prior , currently in third trimester Disease Active 2021-04 0-04 00:00: 00 [facility] H/O major abdominal surgery H/O major abdominal surgery Disease Active 0 8-24 00:00: 00 [facility] H/O delivery, currently H/O delivery, currently Disease Active 0 8-09 00:00: 00 [facility] Bacterial vaginosis Bacterial vaginosis Disease Active 0 5-26 00:00: 00 [facility] Acute vaginitis Acute vaginitis Disease Active 0 5-26 00:00: 00 [facility] Routine care Routine Care Problem Active 0 5-05 00:00: 00 [facility] Medical Problem Active 0 5-05 [facility] Gestation period, 8 weeks Gestation Period, 8 Weeks Problem Active 0 5-05 00:00: 00 [facility] Medical Mastitis Mastitis Disease Active 0 5-22 00:00: 00 [facility] Screening examinatio n for venereal disease Screening examinatio n for venereal disease Disease Active 2019-0 5-05 00:00: 00 [facility] 34 weeks gestation of 34 weeks gestation of Disease Active 2020-0 4-12 00:00: 00 [facility] Pre-eclamp eliel in third trimester Pre-eclamp eliel in third trimester Disease Active 2020-0 4-12 00:00: 00 [facility] Preeclamps ia, severe, third trimester Preeclamps ia, severe, third trimester Disease Active 4-12 00:00: 00 [facility] Mother's group B Streptococ cus colonizati on status unknown Mother's group B Streptococ cus colonizati on status unknown Disease Active 4-12 00:00: 00 [facility] Need for prophylact ic vaccinatio n and inoculatio n against influenza Need for prophylact ic vaccinatio n and inoculatio n against influenza Disease Active 3-04 00:00: 00 [facility] Urinary tract infection without hematuria, site unspecifie d Urinary tract infection without hematuria, site unspecifie d Disease Active 2-12 00:00: 00 [facility] Vaginal discharge Vaginal discharge Disease Active 2018-04 2-04 00:00: 00 [facility] Supervisio n of high risk , antepartum Supervisio n of high risk , antepartum Disease Active 2018-04 0-03 00:00: 00 [facility] High risk teen in third trimester High risk teen in third trimester Disease Active 2018-04 0-03 00:00: 00 [facility] Primigravi da in second trimester Primigravi da in second trimester Disease Active 2018-04 0-03 00:00: 00 [facility] Vaginal bleeding affecting early Vaginal bleeding affecting early Disease Active 2018-04 0-03 00:00: 00 [facility] Nausea without vomiting Nausea without vomiting Disease Active 2018-04 0-03 00:00: 00 [facility] No known active problems No known active problems Disease [facility] Allergies, Adverse Reactions, Alerts Allergy Name Allergy Type Status Severity Reaction(s) Onset Date Inactive Date Treating Clinician Comments Source PENICILL INS Drug Class Active Unknown-Cmnt 2021-04 0-18 00:00: 00 [facility] Penicill ins Drug Allergy Active Unknown - See comments 2021-04 00:00: 00 [facility] AMOXICIL LUPE DRUG INGREDI Active Rash 12-30 00:00: 00 [facility] Amoxicil lupe Propensi ty to adverse reaction s Active Rash 18 00:00: 00 [facility] PENICILL INS Allergy to substanc e Active [facility] NO KNOWN ALLERGIE S Drug Class Active [facility] Social History Social Habit Start Date Stop Date Quantity Comments Source ASSERTION 2018-12-10 00:00:[address] [facility] [place] [place] Sex Assigned At [facility] History SDOH Alcohol Std Drinks [facility] History SDOH Alcohol Binge [facility] [place] [place] History SDOH Alcohol Comment [place] [facility] History of tobacco use Current smoker [facility] [place] [place] Gender identity [facility] Sexual orientation [facility] Alcohol intake 2023-06-05 00:00:00 2023-06-05 00:00:00 Lifetime non-drinker (finding) [facility] [place] [place] History of Social function 2022-10-16 00:00:00 2022-10-16 00:00:[address] [facility] [place] [place] Exposure to SARS-CoV-2 (event) 2022-07-29 00:00:00 2022-08-08 14:16:[address] [facility] [place] [place] Tobacco use and exposure 2022-03-27 00:00:00 2022-03-27 00:00:00 Smokeless tobacco non-user [facility] [place] [place] History SDOH Alcohol Frequency 2019-01-14 00:00:00 2019-01-14 00:00:[address] [facility] [place] [place] Smoking Status Start Date Stop Date Source Ex-smoker 2022-03-27 00:00:00 2022-03-27 00:00:[address] [facility] Never Smoker [facility] Medications Ordered Medication Name Filled Medication Name Start Date Stop Date Current Medication? Ordering Clinician Indication Dosage Frequency Signature (SIG) Comments Components Source azithromyci n 200 mg/5 mL suspension 06-05 00:00: 00 06-11 05:59 :00 No [id number] 500mg Take 12.5 mL by mouth every 24 (twenty-fo ur) hours for 5 days. [facility] azithromyci n 200 mg/5 mL suspension 925 00:00: 00 Yes [id number] Take 12.5 ml on first day, then take 6.2 ml daily for the next four days. [facility] amoxicillin -pot clavulanate (AUGMENTIN) 250-62.5 mg/5 mL suspension 925 00:00: 00 01-17 04:59 :00 No [id number] 500mg Take 10 mL by mouth in the morning and 10 mL in the evening. Do all this for 10 days. [facility] ketorolac (TORADOL) injection 30 mg 12-25 16:45: 00 12-25 15:52 :00 No [id number] 30mg [facility] ketorolac (TORADOL) injection 30 mg 12-25 16:30: 00 12-25 16:34 :29 No [id number] 30mg [facility] azithromyci n 100 mg/5 mL suspension 31 00:00: 00 12-18 04:59 :00 No [id number] 500mg Take 25 mL by mouth in the morning for 5 days. [facility] medroxyPROG ESTERone (DEPO-PROVE RA) syringe 150 mg 11-25 21:30: 00 11-25 20:39 :00 No [id number] 150mg [facility] amoxicillin -clavulanat e 400-57 mg/5 mL suspension 10-25 00:00: 00 11-02 04:59 :00 No [id number] 400mg Take 5 mL by mouth in the morning and 5 mL in the evening. Do all this for 7 days. [facility] cephALEXin 250 mg/5 mL suspension 7-05 00:00: 00 10-25 00:00 :00 No [id number] 500mg Take 10 mL by mouth 4 (four) times daily for 10 days. [facility] terconazole 80 mg vaginal suppository 4-27 00:00: 00 Yes [id number] 80mg Insert 1 Suppositor y into vagina at bedtime. [facility] cephALEXin 125 mg/5 mL suspension 08-08 00:00: 00 10-16 00:00 :00 No [id number] Take 500mg of cephalexin 125/5ml oral suspension (20 ml), orally, four times daily for ten days for treatment of mastitis. [facility] Prenat Vit Comb.10-Iro n-FA-DHA 65-1-250 mg combo pack 08-05 08:30: 06 Yes Take by mouth. [facility] Prenat Vit Comb.10-Iro n-FA-DHA 65-1-250 mg combo pack 08-05 08:30: 06 Yes Take by mouth. [facility] fluconazole 200 mg tablet 08-05 00:00: 00 Yes [id number] 200mg Take 1 tablet by mouth every 3 (three) days. [facility] clindamycin 2 % cream 07-30 00:00: 00 Yes INSERT ONE (1) APPLICATOR FUL(S) INTO THE VAGINA ONCE DAILY AT BEDTIME FOR 7 DAYS. [facility] clindamycin 2 % cream 07-01 00:00: 00 07-09 04:59 :00 No [id number] 1{appli cator} Insert 1 Applicator into vagina at bedtime for 7 days. [facility] metroNIDAZO LE 500 mg tablet 06-30 00:00: 00 07-01 00:00 :00 No [id number] 500mg Take 1 tablet by mouth every 12 (twelve) hours for 7 days. [facility] terconazole 80 mg vaginal suppository 06-27 00:00: 00 Yes [id number] 80mg Insert 1 Suppositor y into vagina at bedtime. [facility] hydrocortis one 2.5 % rectal cream 16 00:00: 00 Yes [id number] Insert into rectum 2 (two) times daily. [facility] clindamycin 300 mg capsule 16 00:00: 00 07-05 04:59 :00 No [id number] 300mg Take 1 capsule by mouth 4 (four) times daily for 7 days. [facility] mg/5 mL suspension 06-21 00:00: 00 10-16 00:00 :00 No [id number] 500mg Take 10 mL by mouth 4 (four) times daily. [facility] flucon[facility] 10 mg/mL suspension 06-21 00:00: 00 06-26 04:59 :00 No [id number] 150mg Take 15 mL by mouth every 72 (seventy-t wo) hours for 2 doses. [facility] Prenat Vit Comb.10-Iro n-FA-DHA 65-1-250 mg combo pack 05-04 16:28: 17 Yes Take by mouth. [facility] nystatin 100,000 unit/gram cream 05-04 00:00: 00 06-27 00:00 :00 No [id number] Apply to area(s) 2 (two) times daily. [facility] ibuprofen 600 mg tablet 05-04 00:00: 00 06-27 00:00 :00 No TAKE ONE (1) TABLET(S) BY MOUTH EVERY SIX HOURS NEEDED FOR PAIN (SCALE 4-6). [facility] fluconazole (DIFLUCAN) 150 mg tablet 05-04 00:00: 00 05-05 05:59 :00 No [id number] 150mg Take 1 tablet by mouth once now for 1 dose. [facility] dicloxacill in 500 mg capsule 2021-04 2 00:00: 00 04-23 05:59 :00 No [id number] 500mg Take 1 capsule by mouth 4 (four) times daily for 10 days. [facility] cephALEXin 250 mg/5 mL suspension 2021-04 2-30 00:00: 00 04-23 05:59 :00 No [id number] 500mg Take 10 mL by mouth 4 (four) times daily for 10 days. [facility] Prenat Vit Comb.10-Iro n-FA-DHA 65-1-250 mg combo pack 2021-04 17:03: 04 Yes Take by mouth. [facility] ibuprofen 600 mg tablet 2021-04 00:00: 00 05-04 00:00 :00 No [id number] 600mg Take 1 tablet by mouth every 6 (six) hours as needed for Pain (scale 4-6). [facility] miconazole (MONISTAT 7) 2 % vaginal cream 2021-04 00:00: 00 05-04 00:00 :00 No [id number] 1{appli cator} Insert 1 Applicator into vagina at bedtime. [facility] amoxicillin -pot clavulanate 600-42.9 mg/5 mL suspension 2021-04 00:00: 00 04-04 05:59 :00 No [id number] 870mg Take 7.25 mL by mouth in the morning and 7.25 mL in the evening. Do all this for 7 days. [facility] amoxicillin -clavulanat e (AUGMENTIN) 875-125 mg per tablet 2021-04 00:00: 00 03-27 00:00 :00 No [id number] 1{tbl} Take 1 tablet by mouth in the morning and 1 tablet in the evening. Do all this for 7 days. [facility] fluconazole (DIFLUCAN) 150 mg tablet 2021-04 00:00: 00 03-27 00:00 :00 No [id number] 150mg Take 1 tablet by mouth once now for 1 dose. [facility] No known medications 9-24 16:00: 31 No No known medication s [facility] No known medications -17 12:52: 24 No No known medication s [facility] No known medications 8-15 15:47: 30 No No known medication s [facility] No known medications 8-08 07:55: 10 No No known medication s [facility] sulfamethox azole-trime thoprim (BACTRIM DS) 800-160 mg per tablet 8-20 00:00: 00 12-12 04:59 :00 No [id number] 1{tbl} Take 1 tablet by mouth 2 (two) times daily for 10 days. [facility] No known medications 7-21 17:05: 55 No [facility] clindamycin 300 mg capsule 5-22 00:00: 00 09-13 04:59 :00 No [id number] 300mg Take 1 capsule by mouth 4 (four) times daily for 10 days. [facility] MELATONIN ORAL 07-27 19:40: 13 07-27 00:00 :00 No Take by mouth. [facility] human papillomav vac,9-oneida(P F) (GARDASIL 9 (PF)) vial 0.5 mL 07-27 11:10: 15 Yes .5mL 0.5 mL, Intramuscu lar, ONCE-PRIOR TO DISCHARGE, 1 dose, Starting Fri07/28/19 at 0610, Until Discontinu ed, Routine, Give vaccine prior to discharge [facility] labetalol (NORMODYNE) 10 mg/mL oral suspension 07-27 00:00: 00 09-19 00:00 :00 No [id number] 100mg Take 10 mL by mouth 2 (two) times daily. [facility] vitamin w/FA tablet 07-27 00:00: 00 09-19 00:00 :00 No [id number] 1{tbl} Take 1 tablet by mouth daily. [facility] docusate calcium 240 mg capsule 07-27 00:00: 00 09-19 00:00 :00 No [id number] 240mg Take 1 capsule by mouth once daily as needed for Constipati on. [facility] ferrous sulfate 325 mg (65 mg iron) tablet 07-27 00:00: 00 09-19 00:00 :00 No [id number] 325mg Take 1 tablet by mouth 2 (two) times daily. [facility] ibuprofen 600 mg tablet 07-27 00:00: 00 09-19 00:00 :00 No [id number] 600mg Take 1 tablet by mouth every 6 (six) hours as needed (Pain). Take with food or milk. [facility] labetalol (NORMODYNE) 10 mg/mL oral suspension 100 mg 07-26 16:30: 00 Yes 100mg 100 mg, Oral, BID, First dose on Fri07/27/19 at 1130, Until Discontinu ed, Routine [facility] labetalol (NORMODYNE) injection 20 mg 07-26 14:00: 00 07-26 12:59 :00 No 20mg 20 mg, Slow IV Push, ONCE, 1 dose, Fri07/27/19 at 0900, Routine [facility] hydralAZINE (APRESOLINE ) injection 5 mg 07-26 12:00: 00 07-26 11:53 :00 No 5mg 5 mg, Slow IV Push, ONCE, 1 dose, Fri07/27/19 at 0700, Routine [facility] magnesium sulfate in LR 40 gram/500 mL IV Solution 07-26 09:15: 00 07-26 21:14 :00 No 2g/h 2 g/hr (25 mL/hr), at 25 mL/hr, IV Infusion, CONTINUOUS , Starting Fri07/27/19 at 0415, Until Fri07/27/19 at 1614, KARIS [facility] traMADol (ULTRAM) 50 mg/10 mL oral syringe 07-25 20:21: 14 Yes 50mg 50 mg, Oral, Q4HPRN, Starting Fri07/26/19 at 1521, Until Discontinu ed, Routine, Pain (scale 7-10) [facility] acetaminoph en (TYLENOL) 160 mg/5 mL liquid 650 mg 07-25 20:20: 45 Yes 650mg 650 mg, Oral, Q6HPRN, Starting Fri07/26/19 at 1520, Until Discontinu ed, Routine, Pain (scale 4-6) [facility] rho(D) immune globulin (RHOGAM) syringe 300 mcg 07-25 20:03: 31 Yes 300ug 300 mcg, Intramuscu lar, ONCE, For 1 dose, Conditiona l, Routine [facility] simethicone (GAS RELIEF (SIMETHICON E)) chewable tablet 160 mg 07-25 20:03: 27 Yes 160mg 160 mg, Oral, PC+HSPRN, Starting Fri07/26/19 at 1503, Until Discontinu ed, Routine, Gas [facility] diphenhydrA MINE (BENADRYL) tablet 25 mg 07-25 20:03: 26 Yes 25mg 25 mg, Oral, Q6HPRN, Starting Fri07/26/19 at 1503, Until Discontinu ed, Routine, Sleep, Itching [facility] diphenhydrA MINE-0.9 % sod.chlr (BENADRYL) 25 mg/50 mL piggyback 25 mg 07-25 20:03: 26 Yes 25mg 25 mg, IV Piggyback, Administer over 30 Minutes, Q6HPRN, Starting Fri07/26/19 at 1503, Until Discontinu ed, Routine, Itching [facility] ondansetron (ZOFRAN (PF)) injection 4 mg 07-25 20:03: 26 Yes 4mg 4 mg, Slow IV Push, Q8HPRN, Starting Fri07/26/19 at 1503, Until Discontinu ed, Routine, Nausea and Vomiting (N/V) [facility] docusate calcium (SURFAK) capsule 240 mg 07-25 20:03: 26 Yes 240mg 240 mg, Oral, QDAILYPRN, Starting Fri07/26/19 at 1503, Until Discontinu ed, Routine, Constipati on [facility] magnesium hydroxide (MILK OF MAGNESIA) 400 mg/5 mL suspension 30 mL 07-25 20:03: 26 Yes 30mL 30 mL, Oral, QDAILYPRN, Starting Fri07/26/19 at 1503, Until Discontinu ed, Routine, Constipati on [facility] benzocaine- menthol (DERMOPLAST ) 20-0.5 % topical spray 07-25 20:03: 26 Yes Topical, PRN, Starting Fri07/26/19 at 1503, Until Discontinu ed, Routine, Perineum discomfort [facility] acetaminoph en (TYLENOL) 160 mg/5 mL liquid 650 mg 07-25 17:15: 00 07-25 16:34 :00 No 650mg 650 mg, Oral, ONCE, 1 dose, Fri07/26/19 at 1215, Routine [facility] LR 1000 mL + oxytocin 20 units IV Solution 07-25 15:15: 00 07-25 16:34 :00 No 2mU/min 2 vinnie-unit s/min (6 mL/hr), IV Infusion, ONCE, Fri07/26/19 at 1015, For 1 dose
In fuse 999 mL /hr & nbsp;over 30 minutes and then decrease rate to 125 mL/hr for the remainder.
[facility] amnioinfusi on IV infusion via PUMP 0.9 NaCL 1,000 mL 07-25 13:45: 00 07-25 13:45 :00 No 1000mL at 750 mL/hr, Intrauteri ne, ONCE, 1 dose, Fri07/26/19 at 0845, KARIS
Ma y give up 1000 mL. & nbsp;Infus e via Intrauteri ne Pressure Catheter.& nbsp;&nbsp ;The infusion is started at 750 mL/hr by volume controlled infusion pump. "The infusion pump should be clearly labeled AMNIOINF USION.&n bsp; Once 750 mL has been infused, the infusion may be dicsontinu ed or decreased to 100 mL/hr until the liter is complete.& nbsp;&nbsp ;Notify Political Consultant if uterine resting tone exceeds 25 mmHg at any time during the amnioinfus ion. Obst etrics (NATALI) Aminoinfus ion Orders
[facility] butorphanol (STADOL) injection 1 mg 07-25 05:00: 00 07-25 04:08 :00 No 1mg 1 mg, IV Push, ONCE, 1 dose, 07/26/19 at 0000, Routine [facility] proMETHazin e (PHENERGAN) 25 mg in NaCl 0.9% (NS) 50 mL IV piggyback 07-25 03:14: 00 07-25 20:03 :32 No 25mg 25 mg, IV Piggyback, Q4HPRN, Starting Fri07/25/19 at 2214, Until 07/26/19 at 1503, Routine, Nausea and Vomiting (N/V) [facility] hydralAZINE (APRESOLINE ) injection 10 mg 07-25 01:30: 00 07-25 00:07 :00 No 10mg 10 mg, Intravenou s, ONCE NOW, 1 dose, [place] 07/25/19 at 2030, Routine [facility] LR 1000 mL + oxytocin 20 units IV Solution 07-25 01:15: 00 07-25 20:03 :32 No 2mU/min 2-40 vinnie-unit s/min (6-120 mL/hr), IV Infusion, CONTINUOUS , Starting 07/25/19 at 2015
In fuse IV through a controlled infusion pump at a proximal port on the peripheral IV line.&nbsp ;&nbsp ;Start at 2 vinnie-unit s/min and increase by 2 vinnie-unit s/min every 20 minutes according to oxytocin policy 7.11.52.&n bsp; Going over 20 vinnie-unit s/min requires faculty approval.& nbsp;&nbsp ;Max 40 vinnie-unit s/min.
[facility] sodium citrate-cit sabrina acid (BICITRA) 500-334 mg/5 mL solution 30 mL 07-25 00:04: 20 07-25 10:59 :00 No 30mL 30 mL, Oral, PRE-PROCED URE ONCE, 1 dose, Starting 07/25/19 at 1904, Until Discontinu ed, Routine, Surgery/Pr ocedure [facility] lactated ringers IV infusion 500 mL 07-25 00:04: 19 07-25 20:03 :32 No 500mL at 999 mL/hr, 500 mL, IV Infusion, PRN - SEE INSTRUCTIO NS, Starting 07/25/19 at 1904, Until Fri07/26/19 at 1503, Routine [facility] labetalol (NORMODYNE) injection 20 mg 07-24 23:17: 00 07-24 23:19 :00 No 20mg 20 mg, Slow IV Push, ONCE, 1 dose, [place] 07/25/19 at 1830, [facility] D5W 0.45% NaCl (1/2NS) IV infusion 1,000 mL 07-24 20:15: 00 07-25 20:03 :32 No 1000mL at 100 mL/hr, 1,000 mL, IV Infusion, CONTINUOUS , Starting [place] 07/25/19 at 1515, Until Fri07/26/19 at 1503, [facility] magnesium sulfate in LR 40 gram/500 mL IV Solution 07-24 20:15: 00 07-25 08:14 :00 No 2g/h 2 g/hr (25 mL/hr), at 25 mL/hr, IV Infusion, CONTINUOUS , Starting [place] 07/25/19 at 1515, Until Fri07/26/19 at 0314, [facility] Blood Pressure Monitor (BLOOD PRESSURE KIT) Kit 07-14 00:00: 00 07-27 00:00 :00 No [id number] Use as directed [facility] MELATONIN ORAL 06-26 05:33: 25 Yes Take by mouth. [facility] cefTRIAXone (ROCEPHIN) 1,000 mg in NaCl 0.9% (NS) 50 mL MINI-BAG 05-24 03:30: 00 05-24 03:05 :00 No 1000mg 1,000 mg, IV Piggyback, ONCE, 1 dose, [place] 05/23/19 at 2130, 50 mL
Reas on for Anti-Infec tive: Documented Infection< br>Documen elisabeth Infection Site: Urine
D uration of Therapy: Other (see Comments) [facility] proMETHazin e 25 mg tablet 2-09 00:00: 07-24 00:00 :00 No [id number] 25mg Take 1 tablet by mouth every 6 (six) hours as needed for Nausea and Vomiting (N/V). [facility] promethazin e 6.25 mg/5 mL solution 05-23 00:00: 00 06-12 05:59 :00 No [id number] 25mg Take 20 mL by mouth every 6 (six) hours as needed for Nausea and Vomiting (N/V) for up to 20 days. [facility] cephALEXin 250 mg/5 mL suspension 05-23 00:00: 06-03 05:59 :00 No [id number] 500mg Take 10 mL by mouth 3 (three) times daily for 10 days. [facility] cephALEXin (KEFLEX) 500 mg capsule 05-23 00:00: 05-23 00:00 :00 No [id number] 500mg Take 1 capsule by mouth 3 (three) times daily for 10 days. [facility] MELATONIN ORAL 2018-04 14:36: 39 Yes Take by mouth. [facility] vit 33-iron-fol ic-dha (SELECT-OB + DHA) 29 mg iron-1 mg -250 mg combo pack 2018-04 00:00: 00 07-27 00:00 :00 No [id number] 1{packe t} Take 1 Packet by mouth daily. [facility] mupirocin 2 % ointment 11-26 00:00: 00 12-04 04:59 :00 No [id number] Apply to area(s) 3 (three) times daily for 7 days. [facility] mupirocin (BACTROBAN) 2 % cream 11-25 00:00: 00 11-26 00:00 :00 No [id number] Apply to area(s) 3 (three) times daily for 7 days. [facility] azithromyci n (ZITHROMAX) 200 mg/5 mL suspension 2017-04 00:00: 00 11-25 00:00 :00 No Take 500 mg po today then 250 mg po qd on days #2-#5 [facility] No known medications No Un manav ity [facility] No known medications No Un manav ity [facility] No known medications No Un manav ity [facility] No known medications No Un manav ity [facility] No known medications No Un manav ity [facility] No known medications No Un manav ity [facility] No known medications No Un manav ity [facility] metronidazo le 0.75 % vaginal gel Insert by vaginal route for 5 days. metronidazo le 0.75 % vaginal gel Insert by vaginal route for 5 days. No metronidaz ole 0.75 % vaginal gel Insert by vaginal route for 5 days. [facility] terconazole 0.4 % vaginal cream INSERT 1 APPLICATORF UL EVERY DAY BY VAGINAL ROUTE FOR 7 DAYS. terconazole 0.4 % vaginal cream INSERT 1 APPLICATORF UL EVERY DAY BY VAGINAL ROUTE FOR 7 DAYS. No terconazol e 0.4 % vaginal cream INSERT 1 APPLICATOR FUL EVERY DAY BY VAGINAL ROUTE FOR 7 DAYS. [facility] chlorhexidi ne gluconate 0.12 % mouthwash AFTER BRUSHING TEETH, SWISH 15 ML IN MOUTH FOR 30 SECONDS, THEN SPIT OUT. USE TWICE DAILY. chlorhexidi ne gluconate 0.12 % mouthwash AFTER BRUSHING TEETH, SWISH 15 ML IN MOUTH FOR 30 SECONDS, THEN SPIT OUT. USE TWICE DAILY. No chlorhexid ine gluconate 0.12 % mouthwash AFTER BRUSHING TEETH, SWISH 15 ML IN MOUTH FOR 30 SECONDS, THEN SPIT OUT. USE TWICE DAILY. [facility] Clindamycin Pediatric 75 mg/5 mL oral solution TAKE TWO (2) TEASPOONFUL (S) BY MOUTH THREE TIMES A DAY FOR 5 DAYS (DISCARD REMAINDER). Clindamycin Pediatric 75 mg/5 mL oral solution TAKE TWO (2) TEASPOONFUL (S) BY MOUTH THREE TIMES A DAY FOR 5 DAYS (DISCARD REMAINDER). No Clindamyci n Pediatric 75 mg/5 mL oral solution TAKE TWO (2) TEASPOONFU L(S) BY MOUTH THREE TIMES A DAY FOR 5 DAYS (DISCARD REMAINDER) . [facility] No Known Medications No Known Medications No [facility] Clinics Immunizations Ordered Immunization Name Filled Immunization Name Date Status Comments Source TDAP 2021-12-31 00:00:[address] [facility] [place] [place] TDAP 2021-12-31 00:00:[address] [facility] [place] [place] TDAP 2021-12-31 00:00:[address] [facility] [place] [place] TDAP 2021-12-31 00:00:[address] [facility] [place] [place] TDAP 2021-12-31 00:00:[address] [facility] [place] [place] TDAP 2021-12-31 00:00:[address] [facility] [place] [place] TDAP 2021-12-31 00:00:[address] [facility] [place] [place] TDAP 2021-12-31 00:00:[address] [facility] [place] [place] TDAP 2021-12-31 00:00:[address] [facility] [place] [place] TDAP 2021-12-31 00:00:[address] [facility] [place] [place] TDAP 2021-12-31 00:00:[address] [facility] [place] [place] TDAP 2021-12-31 00:00:[address] [facility] [place] [place] TDAP 2021-12-31 00:00:[address] [facility] [place] [place] TDAP 2021-12-31 00:00:[address] [facility] [place] [place] TDAP 2021-12-31 00:00:[address] [facility] [place] [place] TDAP 2021-12-31 00:00:[address] [facility] [place] [place] TDAP 2021-12-31 00:00:[address] [facility] [place] [place] TDAP 2021-12-31 00:00:[address] [facility] [place] [place] TDAP 2021-12-31 00:00:[address] [facility] [place] [place] TDAP 2021-12-31 00:00:[address] [facility] [place] [place] TDAP 2021-12-31 00:00:[address] [facility] [place] [place] TDAP 2021-12-31 00:00:[address] [facility] [place] [place] TDAP 2021-12-31 00:00:[address] [facility] [place] [place] TDAP 2021-12-31 00:00:[address] [facility] [place] [place] TDAP 2021-12-31 00:00:[address] [facility] [place] TDAP (ADACEL) VACCINE 2019-06-16 00:00:[address] [facility] [place] TDAP (ADACEL) VACCINE 2019-06-16 00:00:[address] [facility] [place] TDAP (ADACEL) VACCINE 2019-06-16 00:00:[address] [facility] [place] TDAP (ADACEL) VACCINE 2019-06-16 00:00:[address] [facility] [place] TDAP (ADACEL) VACCINE 2019-06-16 00:00:[address] [facility] [place] TDAP (ADACEL) VACCINE 2019-06-16 00:00:[address] [facility] [place] TDAP (ADACEL) VACCINE 2019-06-16 00:00:[address] [facility] [place] TDAP (ADACEL) VACCINE 2019-06-16 00:00:[address] [facility] [place] TDAP (ADACEL) VACCINE 2019-06-16 00:00:[address] [facility] [place] TDAP (ADACEL) VACCINE 2019-06-16 00:00:[address] [facility] [place] TDAP (ADACEL) VACCINE 2019-06-16 00:00:[address] [facility] [place] TDAP (ADACEL) VACCINE 2019-06-16 00:00:[address] [facility] [place] TDAP (ADACEL) VACCINE 2019-06-16 00:00:[address] [facility] [place] TDAP (ADACEL) VACCINE 2019-06-16 00:00:[address] [facility] [place] TDAP (ADACEL) VACCINE 2019-06-16 00:00:[address] [facility] [place] TDAP (ADACEL) VACCINE 2019-06-16 00:00:[address] [facility] [place] TDAP (ADACEL) VACCINE 2019-06-16 00:00:[address] [facility] [place] TDAP (ADACEL) VACCINE 2019-06-16 00:00:[address] [facility] [place] TDAP (ADACEL) VACCINE 2019-06-16 00:00:[address] [facility] [place] TDAP (ADACEL) VACCINE 2019-06-16 00:00:[address] [facility] [place] TDAP (ADACEL) VACCINE 2019-06-16 00:00:[address] [facility] [place] TDAP (ADACEL) VACCINE 2019-06-16 00:00:[address] [facility] [place] TDAP (ADACEL) VACCINE 2019-06-16 00:00:[address] [facility] [place] TDAP (ADACEL) VACCINE 2019-06-16 00:00:[address] [facility] [place] TDAP (ADACEL) VACCINE 2019-06-16 00:00:00 Completed [facility] TDAP (ADACEL) VACCINE 2019-06-16 00:00:[address] [facility] [place] TDAP (ADACEL) VACCINE 2019-06-16 00:00:[address] [facility] [place] TDAP (ADACEL) VACCINE 2019-06-16 00:00:[address] [facility] [place] TDAP (ADACEL) VACCINE 2019-06-16 00:00:[address] [facility] [place] TDAP (ADACEL) VACCINE 2019-06-16 00:00:[address] [facility] [place] TDAP (ADACEL) VACCINE 2019-06-16 00:00:[address] [facility] [place] TDAP (ADACEL) VACCINE 2019-06-16 00:00:[address] [facility] [place] TDAP (ADACEL) VACCINE 2019-06-16 00:00:[address] [facility] [place] TDAP (ADACEL) VACCINE 2019-06-16 00:00:[address] [facility] [place] TDAP (ADACEL) VACCINE 2019-06-16 00:00:[address] [facility] [place] TDAP (ADACEL) VACCINE 2019-06-16 00:00:[address] [facility] [place] TDAP (ADACEL) VACCINE 2019-06-16 00:00:[address] [facility] [place] TDAP (ADACEL) VACCINE 2019-06-16 00:00:[address] [facility] [place] TDAP (ADACEL) VACCINE 2019-06-16 00:00:[address] [facility] [place] TDAP (ADACEL) VACCINE 2019-06-16 00:00:[address] [facility] [place] TDAP (ADACEL) VACCINE 2019-06-16 00:00:[address] [facility] [place] TDAP (ADACEL) VACCINE 2019-06-16 00:00:[address] [facility] [place] TDAP (ADACEL) VACCINE 2019-06-16 00:00:[address] [facility] [place] TDAP (ADACEL) VACCINE 2019-06-16 00:00:[address] [facility] [place] TDAP (ADACEL) VACCINE 2019-06-16 00:00:[address] [facility] [place] TDAP (ADACEL) VACCINE 2019-06-16 00:00:[address] [facility] [place] TDAP (ADACEL) VACCINE 2019-06-16 00:00:[address] [facility] [place] TDAP (ADACEL) VACCINE 2019-06-16 00:00:[address] [facility] [place] TDAP (ADACEL) VACCINE 2019-06-16 00:00:[address] [facility] [place] TDAP (ADACEL) VACCINE 2019-06-16 00:00:[address] [facility] [place] TDAP (ADACEL) VACCINE 2019-06-16 00:00:[address] [facility] [place] TDAP (ADACEL) VACCINE 2019-06-16 00:00:[address] [facility] [place] TDAP (ADACEL) VACCINE 2019-06-16 00:00:[address] [facility] [place] TDAP (ADACEL) VACCINE 2019-06-16 00:00:[address] [facility] [place] TDAP (ADACEL) VACCINE 2019-06-16 00:00:[address] [facility] [place] TDAP (ADACEL) VACCINE 2019-06-16 00:00:[address] [facility] [place] TDAP (ADACEL) VACCINE 2019-06-16 00:00:[address] [facility] [place] TDAP (ADACEL) VACCINE 2019-06-16 00:00:[address] [facility] [place] TDAP (ADACEL) VACCINE 2019-06-16 00:00:[address] [facility] [place] TDAP (ADACEL) VACCINE 2019-06-16 00:00:[address] [facility] [place] TDAP (ADACEL) VACCINE 2019-06-16 00:00:[address] [facility] [place] TDAP (ADACEL) VACCINE 2019-06-16 00:00:[address] [facility] [place] TDAP (ADACEL) VACCINE 2019-06-16 00:00:[address] [facility] [place] TDAP (ADACEL) VACCINE 2019-06-16 00:00:[address] [facility] [place] TDAP (ADACEL) VACCINE 2019-06-16 00:00:[address] [facility] [place] TDAP (ADACEL) VACCINE 2019-06-16 00:00:[address] [facility] [place] Influenza Virus Vaccine Quad .5 mL IM 6+ MO 2019-01-14 00:00:[address] [facility] [place] Influenza Virus Vaccine Quad .5 mL IM 6+ MO 2019-01-14 00:00:[address] [facility] [place] Influenza Virus Vaccine Quad .5 mL IM 6+ MO 2019-01-14 00:00:[address] [facility] [place] Influenza Virus Vaccine Quad .5 mL IM 6+ MO 2019-01-14 00:00:[address] [facility] [place] Influenza Virus Vaccine Quad .5 mL IM 6+ MO 2019-01-14 00:00:[address] [facility] [place] Influenza Virus Vaccine Quad .5 mL IM 6+ MO 2019-01-14 00:00:[address] [facility] [place] Influenza Virus Vaccine Quad .5 mL IM 6+ MO 2019-01-14 00:00:[address] [facility] [place] Influenza Virus Vaccine Quad .5 mL IM 6+ MO 2019-01-14 00:00:[address] [facility] [place] Influenza Virus Vaccine Quad .5 mL IM 6+ MO 2019-01-14 00:00:[address] [facility] [place] Influenza Virus Vaccine Quad .5 mL IM 6+ MO 2019-01-14 00:00:[address] [facility] [place] Influenza Virus Vaccine Quad .5 mL IM 6+ MO 2019-01-14 00:00:[address] [facility] [place] Influenza Virus Vaccine Quad .5 mL IM 6+ MO 2019-01-14 00:00:[address] [facility] [place] Influenza Virus Vaccine Quad .5 mL IM 6+ MO 2019-01-14 00:00:[address] [facility] [place] Influenza Virus Vaccine Quad .5 mL IM 6+ MO 2019-01-14 00:00:[address] [facility] [place] Influenza Virus Vaccine Quad .5 mL IM 6+ MO 2019-01-14 00:00:[address] [facility] [place] Influenza Virus Vaccine Quad .5 mL IM 6+ MO 2019-01-14 00:00:[address] [facility] [place] Influenza Virus Vaccine Quad .5 mL IM 6+ MO 2019-01-14 00:00:[address] [facility] [place] Influenza Virus Vaccine Quad .5 mL IM 6+ MO 2019-01-14 00:00:[address] [facility] [place] Influenza Virus Vaccine Quad .5 mL IM 6+ MO 2019-01-14 00:00:[address] [facility] [place] Influenza Virus Vaccine Quad .5 mL IM 6+ MO 2019-01-14 00:00:[address] [facility] [place] Influenza Virus Vaccine Quad .5 mL IM 6+ MO 2019-01-14 00:00:[address] [facility] [place] Influenza Virus Vaccine Quad .5 mL IM 6+ MO 2019-01-14 00:00:[address] [facility] [place] Influenza Virus Vaccine Quad .5 mL IM 6+ MO 2019-01-14 00:00:[address] [facility] [place] Influenza Virus Vaccine Quad .5 mL IM 6+ MO 2019-01-14 00:00:[address] [facility] [place] Influenza Virus Vaccine Quad .5 mL IM 6+ MO 2019-01-14 00:00:[address] [facility] [place] Influenza Virus Vaccine Quad .5 mL IM 6+ MO 2019-01-14 00:00:[address] [facility] [place] Influenza Virus Vaccine Quad .5 mL IM 6+ MO 2019-01-14 00:00:[address] [facility] [place] Influenza Virus Vaccine Quad .5 mL IM 6+ MO 2019-01-14 00:00:[address] [facility] [place] Influenza Virus Vaccine Quad .5 mL IM 6+ MO 2019-01-14 00:00:[address] [facility] [place] Influenza Virus Vaccine Quad .5 mL IM 6+ MO 2019-01-14 00:00:[address] [facility] [place] Influenza Virus Vaccine Quad .5 mL IM 6+ MO 2019-01-14 00:00:[address] [facility] [place] Influenza Virus Vaccine Quad .5 mL IM 6+ MO 2019-01-14 00:00:[address] [facility] [place] Influenza Virus Vaccine Quad .5 mL IM 6+ MO 2019-01-14 00:00:[address] [facility] [place] Influenza Virus Vaccine Quad .5 mL IM 6+ MO 2019-01-14 00:00:[address] [facility] [place] Influenza Virus Vaccine Quad .5 mL IM 6+ MO 2019-01-14 00:00:[address] [facility] [place] Influenza Virus Vaccine Quad .5 mL IM 6+ MO 2019-01-14 00:00:[address] [facility] [place] Influenza Virus Vaccine Quad .5 mL IM 6+ MO 2019-01-14 00:00:[address] [facility] [place] Influenza Virus Vaccine Quad .5 mL IM 6+ MO 2019-01-14 00:00:[address] [facility] [place] Influenza Virus Vaccine Quad .5 mL IM 6+ MO 2019-01-14 00:00:[address] [facility] [place] Influenza Virus Vaccine Quad .5 mL IM 6+ MO 2019-01-14 00:00:[address] [facility] [place] Influenza Virus Vaccine Quad .5 mL IM 6+ MO 2019-01-14 00:00:[address] [facility] [place] Influenza Virus Vaccine Quad .5 mL IM 6+ MO 2019-01-14 00:00:[address] [facility] [place] Influenza Virus Vaccine Quad .5 mL IM 6+ MO 2019-01-14 00:00:[address] [facility] [place] Influenza Virus Vaccine Quad .5 mL IM 6+ MO 2019-01-14 00:00:[address] [facility] [place] Influenza Virus Vaccine Quad .5 mL IM 6+ MO 2019-01-14 00:00:[address] [facility] [place] Influenza Virus Vaccine Quad .5 mL IM 6+ MO 2019-01-14 00:00:[address] [facility] [place] Influenza Virus Vaccine Quad .5 mL IM 6+ MO 2019-01-14 00:00:[address] [facility] [place] Influenza Virus Vaccine Quad .5 mL IM 6+ MO 2019-01-14 00:00:[address] [facility] [place] Influenza Virus Vaccine Quad .5 mL IM 6+ MO 2019-01-14 00:00:[address] [facility] [place] Influenza Virus Vaccine Quad .5 mL IM 6+ MO 2019-01-14 00:00:[address] [facility] [place] Influenza Virus Vaccine Quad .5 mL IM 6+ MO 2019-01-14 00:00:[address] [facility] [place] Influenza Virus Vaccine Quad .5 mL IM 6+ MO 2019-01-14 00:00:[address] [facility] [place] Influenza Virus Vaccine Quad .5 mL IM 6+ MO 2019-01-14 00:00:[address] [facility] [place] Influenza Virus Vaccine Quad .5 mL IM 6+ MO 2019-01-14 00:00:[address] [facility] [place] Influenza Virus Vaccine Quad .5 mL IM 6+ MO 2019-01-14 00:00:[address] [facility] [place] Influenza Virus Vaccine Quad .5 mL IM 6+ MO 2019-01-14 00:00:[address] [facility] [place] Influenza Virus Vaccine Quad .5 mL IM 6+ MO 2019-01-14 00:00:[address] [facility] [place] Influenza Virus Vaccine Quad .5 mL IM 6+ MO (FLUZONE/FLULAVAL/FL UARIX) 2019-01-14 00:00:[address] [facility] [place] Influenza Virus Vaccine Quad .5 mL IM 6+ MO (FLUZONE/FLULAVAL/FL UARIX) 2019-01-14 00:00:[address] [facility] [place] Influenza Virus Vaccine Quad .5 mL IM 6+ MO (FLUZONE/FLULAVAL/FL UARIX) 2019-01-14 00:00:[address] [facility] [place] Influenza Virus Vaccine Quad .5 mL IM 6+ MO 2019-01-14 00:00:[address] [facility] [place] Influenza Virus Vaccine Quad .5 mL IM 6+ MO 2019-01-14 00:00:[address] [facility] [place] Influenza Virus Vaccine Quad .5 mL IM 6+ MO 2019-01-14 00:00:[address] [facility] [place] Influenza Virus Vaccine Quad .5 mL IM 6+ MO 2019-01-14 00:00:[address] [facility] [place] Influenza Virus Vaccine Quad .5 mL IM 6+ MO 2019-01-14 00:00:[address] [facility] [place] Influenza Virus Vaccine Quad .5 mL IM 6+ MO 2019-01-14 00:00:[address] [facility] [place] Influenza Virus Vaccine Quad .5 mL IM 6+ MO 2019-01-14 00:00:[address] [facility] [place] Influenza Virus Vaccine Quad .5 mL IM 6+ MO 2019-01-14 00:00:[address] [facility] [place] Influenza Virus Vaccine Quad .5 mL IM 6+ MO 2019-01-14 00:00:[address] [facility] [place] Meningococcal Polysaccharide (groups A, C, Y and W-135) conjugate vaccine (MCV4P) 2017-09-11 00:00:[address] [facility] [place] Meningococcal B, OMV 2017-09-11 00:00:[address] [facility] [place] Meningococcal Polysaccharide (groups A, C, Y and W-135) conjugate vaccine (MCV4P) 2017-09-11 00:00:[address] [facility] [place] Meningococcal B, OMV 2017-09-11 00:00:[address] [facility] [place] Meningococcal Polysaccharide (groups A, C, Y and W-135) conjugate vaccine (MCV4P) 2017-09-11 00:00:[address] [facility] [place] Meningococcal Polysaccharide (groups A, C, Y and W-135) conjugate vaccine (MCV4P) 2017-09-11 00:00:[address] [facility] [place] Meningococcal B, OMV 2017-09-11 00:00:[address] [facility] [place] Meningococcal B, OMV 2017-09-11 00:00:[address] [facility] [place] Meningococcal Polysaccharide (groups A, C, Y and W-135) conjugate vaccine (MCV4P) 2017-09-11 00:00:[address] [facility] [place] Meningococcal B, OMV 2017-09-11 00:00:[address] [facility] [place] Meningococcal Polysaccharide (groups A, C, Y and W-135) conjugate vaccine (MCV4P) 2017-09-11 00:00:[address] [facility] [place] Meningococcal B, OMV 2017-09-11 00:00:[address] [facility] [place] Meningococcal Polysaccharide (groups A, C, Y and W-135) conjugate vaccine (MCV4P) 2017-09-11 00:00:[address] [facility] [place] Meningococcal B, OMV 2017-09-11 00:00:[address] [facility] [place] Meningococcal Polysaccharide (groups A, C, Y and W-135) conjugate vaccine (MCV4P) 2017-09-11 00:00:[address] [facility] [place] Meningococcal B, OMV 2017-09-11 00:00:[address] [facility] [place] Meningococcal Polysaccharide (groups A, C, Y and W-135) conjugate vaccine (MCV4P) 2017-09-11 00:00:[address] [facility] [place] Meningococcal B, OMV 2017-09-11 00:00:[address] [facility] [facility] [place] [place] Meningococcal Polysaccharide (groups A, C, Y and W-135) conjugate vaccine (MCV4P) 2017-09-11 00:00:[address] [facility] [place] Meningococcal B, OMV 2017-09-11 00:00:[address] [facility] [place] Meningococcal Polysaccharide (groups A, C, Y and W-135) conjugate vaccine (MCV4P) 2017-09-11 00:00:[address] [facility] [place] Meningococcal B, OMV 2017-09-11 00:00:[address] [facility] [place] Meningococcal Polysaccharide (groups A, C, Y and W-135) conjugate vaccine (MCV4P) 2017-09-11 00:00:[address] [facility] [place] Meningococcal B, OMV 2017-09-11 00:00:[address] [facility] [place] Meningococcal Polysaccharide (groups A, C, Y and W-135) conjugate vaccine (MCV4P) 2017-09-11 00:00:[address] [facility] [place] Meningococcal B, OMV 2017-09-11 00:00:[address] [facility] [place] Meningococcal Polysaccharide (groups A, C, Y and W-135) conjugate vaccine (MCV4P) 2017-09-11 00:00:[address] [facility] [place] Meningococcal B, OMV 2017-09-11 00:00:[address] [facility] [place] Meningococcal Polysaccharide (groups A, C, Y and W-135) conjugate vaccine (MCV4P) 2017-09-11 00:00:[address] [facility] [place] Meningococcal B, OMV 2017-09-11 00:00:[address] [facility] [place] Meningococcal Polysaccharide (groups A, C, Y and W-135) conjugate vaccine (MCV4P) 2017-09-11 00:00:[address] [facility] [place] Meningococcal B, OMV 2017-09-11 00:00:[address] [facility] [place] Meningococcal Polysaccharide (groups A, C, Y and W-135) conjugate vaccine (MCV4P) 2017-09-11 00:00:[address] [facility] [place] Meningococcal B, OMV 2017-09-11 00:00:[address] [facility] [place] Meningococcal Polysaccharide (groups A, C, Y and W-135) conjugate vaccine (MCV4P) 2017-09-11 00:00:[address] [facility] [place] Meningococcal B, OMV 2017-09-11 00:00:[address] [facility] [place] Meningococcal Polysaccharide (groups A, C, Y and W-135) conjugate vaccine (MCV4P) 2017-09-11 00:00:[address] [facility] [place] Meningococcal B, OMV 2017-09-11 00:00:[address] [facility] [place] Meningococcal Polysaccharide (groups A, C, Y and W-135) conjugate vaccine (MCV4P) 2017-09-11 00:00:[address] [facility] [place] Meningococcal B, OMV 2017-09-11 00:00:[address] [facility] [place] Meningococcal Polysaccharide (groups A, C, Y and W-135) conjugate vaccine (MCV4P) 2017-09-11 00:00:[address] [facility] [place] Meningococcal B, OMV 2017-09-11 00:00:[address] [facility] [place] Meningococcal Polysaccharide (groups A, C, Y and W-135) conjugate vaccine (MCV4P) 2017-09-11 00:00:[address] [facility] [place] Meningococcal B, OMV 2017-09-11 00:00:[address] [facility] [place] Meningococcal Polysaccharide (groups A, C, Y and W-135) conjugate vaccine (MCV4P) 2017-09-11 00:00:[address] [facility] [place] Meningococcal B, OMV 2017-09-11 00:00:[address] [facility] [place] Meningococcal Polysaccharide (groups A, C, Y and W-135) conjugate vaccine (MCV4P) 2017-09-11 00:00:[address] [facility] [place] Meningococcal B, OMV 2017-09-11 00:00:[address] [facility] [place] Meningococcal Polysaccharide (groups A, C, Y and W-135) conjugate vaccine (MCV4P) 2017-09-11 00:00:[address] [facility] [place] Meningococcal B, OMV 2017-09-11 00:00:[address] [facility] [place] Meningococcal Polysaccharide (groups A, C, Y and W-135) conjugate vaccine (MCV4P) 2017-09-11 00:00:[address] [facility] [place] Meningococcal B, OMV 2017-09-11 00:00:[address] [facility] [place] Meningococcal Polysaccharide (groups A, C, Y and W-135) conjugate vaccine (MCV4P) 2017-09-11 00:00:[address] [facility] [place] Meningococcal B, OMV 2017-09-11 00:00:[address] [facility] [place] Meningococcal Polysaccharide (groups A, C, Y and W-135) conjugate vaccine (MCV4P) 2017-09-11 00:00:[address] [facility] [place] Meningococcal B, OMV 2017-09-11 00:00:[address] [facility] [place] Meningococcal Polysaccharide (groups A, C, Y and W-135) conjugate vaccine (MCV4P) 2017-09-11 00:00:[address] [facility] [place] Meningococcal B, OMV 2017-09-11 00:00:[address] [facility] [place] Meningococcal Polysaccharide (groups A, C, Y and W-135) conjugate vaccine (MCV4P) 2017-09-11 00:00:[address] [facility] [place] Meningococcal B, OMV 2017-09-11 00:00:[address] [facility] [place] Meningococcal Polysaccharide (groups A, C, Y and W-135) conjugate vaccine (MCV4P) 2017-09-11 00:00:[address] [facility] [place] Meningococcal B, OMV 2017-09-11 00:00:[address] [facility] [place] Meningococcal Polysaccharide (groups A, C, Y and W-135) conjugate vaccine (MCV4P) 2017-09-11 00:00:[address] [facility] [place] Meningococcal B, OMV 2017-09-11 00:00:[address] [facility] [place] Meningococcal Polysaccharide (groups A, C, Y and W-135) conjugate vaccine (MCV4P) 2017-09-11 00:00:[address] [facility] [place] Meningococcal B, OMV 2017-09-11 00:00:[address] [facility] [place] Meningococcal Polysaccharide (groups A, C, Y and W-135) conjugate vaccine (MCV4P) 2017-09-11 00:00:[address] [facility] [place] Meningococcal B, OMV 2017-09-11 00:00:[address] [facility] [place] Meningococcal Polysaccharide (groups A, C, Y and W-135) conjugate vaccine (MCV4P) 2017-09-11 00:00:[address] [facility] [place] Meningococcal B, OMV 2017-09-11 00:00:[address] [facility] [place] Meningococcal Polysaccharide (groups A, C, Y and W-135) conjugate vaccine (MCV4P) 2017-09-11 00:00:[address] [facility] [place] Meningococcal B, OMV 2017-09-11 00:00:[address] [facility] [place] Meningococcal Polysaccharide (groups A, C, Y and W-135) conjugate vaccine (MCV4P) 2017-09-11 00:00:[address] [facility] [place] Meningococcal B, OMV 2017-09-11 00:00:[address] [facility] [place] Meningococcal Polysaccharide (groups A, C, Y and W-135) conjugate vaccine (MCV4P) 2017-09-11 00:00:[address] [facility] [place] Meningococcal B, OMV 2017-09-11 00:00:[address] [facility] [place] Meningococcal Polysaccharide (groups A, C, Y and W-135) conjugate vaccine (MCV4P) 2017-09-11 00:00:[address] [facility] [place] Meningococcal B, OMV 2017-09-11 00:00:[address] [facility] [place] Meningococcal Polysaccharide (groups A, C, Y and W-135) conjugate vaccine (MCV4P) 2017-09-11 00:00:[address] [facility] [place] Meningococcal B, OMV 2017-09-11 00:00:[address] [facility] [place] Meningococcal Polysaccharide (groups A, C, Y and W-135) conjugate vaccine (MCV4P) 2017-09-11 00:00:[address] [facility] [place] Meningococcal B, OMV 2017-09-11 00:00:[address] [facility] [place] Meningococcal Polysaccharide (groups A, C, Y and W-135) conjugate vaccine (MCV4P) 2017-09-11 00:00:[address] [facility] [place] Meningococcal B, OMV 2017-09-11 00:00:[address] [facility] [place] Meningococcal Polysaccharide (groups A, C, Y and W-135) conjugate vaccine (MCV4P) 2017-09-11 00:00:[address] [facility] [place] Meningococcal B, OMV 2017-09-11 00:00:[address] [facility] [place] Meningococcal Polysaccharide (groups A, C, Y and W-135) conjugate vaccine (MCV4P) 2017-09-11 00:00:[address] [facility] [place] Meningococcal B, OMV 2017-09-11 00:00:[address] [facility] [place] Meningococcal Polysaccharide (groups A, C, Y and W-135) conjugate vaccine (MCV4P) 2017-09-11 00:00:[address] [facility] [place] Meningococcal B, OMV 2017-09-11 00:00:[address] [facility] [place] Meningococcal Polysaccharide (groups A, C, Y and W-135) conjugate vaccine (MCV4P) 2017-09-11 00:00:[address] [facility] [place] Meningococcal B, OMV 2017-09-11 00:00:[address] [facility] [place] Meningococcal Polysaccharide (groups A, C, Y and W-135) conjugate vaccine (MCV4P) 2017-09-11 00:00:[address] [facility] [place] Meningococcal B, OMV 2017-09-11 00:00:[address] [facility] [place] Meningococcal Polysaccharide (groups A, C, Y and W-135) conjugate vaccine (MCV4P) 2017-09-11 00:00:[address] [facility] [place] Meningococcal B, OMV 2017-09-11 00:00:[address] [facility] [place] Meningococcal Polysaccharide (groups A, C, Y and W-135) conjugate vaccine (MCV4P) 2017-09-11 00:00:[address] [facility] [place] Meningococcal Polysaccharide (groups A, C, Y and W-135) conjugate vaccine (MCV4P) 2017-09-11 00:00:[address] [facility] [place] Meningococcal B, OMV 2017-09-11 00:00:[address] [facility] [place] Meningococcal B, OMV 2017-09-11 00:00:[address] [facility] [place] Meningococcal Polysaccharide (groups A, C, Y and W-135) conjugate vaccine (MCV4P) 2017-09-11 00:00:[address] [facility] [place] Meningococcal B, OMV 2017-09-11 00:00:[address] [facility] [place] Meningococcal Polysaccharide (groups A, C, Y and W-135) conjugate vaccine (MCV4P) 2017-09-11 00:00:[address] [facility] [place] Meningococcal B, OMV 2017-09-11 00:00:[address] [facility] [place] Meningococcal Polysaccharide (groups A, C, Y and W-135) conjugate vaccine (MCV4P) 2017-09-11 00:00:[address] [facility] [place] Meningococcal B, OMV 2017-09-11 00:00:[address] [facility] [place] Meningococcal Polysaccharide (groups A, C, Y and W-135) conjugate vaccine (MCV4P) 2017-09-11 00:00:[address] [facility] [place] Meningococcal B, OMV 2017-09-11 00:00:[address] [facility] [place] Meningococcal Polysaccharide (groups A, C, Y and W-135) conjugate vaccine (MCV4P) 2017-09-11 00:00:[address] [facility] [place] Meningococcal B, OMV 2017-09-11 00:00:[address] [facility] [place] Meningococcal Polysaccharide (groups A, C, Y and W-135) conjugate vaccine (MCV4P) 2017-09-11 00:00:[address] [facility] [place] Meningococcal B, OMV 2017-09-11 00:00:[address] [facility] [place] Meningococcal Polysaccharide (groups A, C, Y and W-135) conjugate vaccine (MCV4P) 2017-09-11 00:00:[address] [facility] [place] Meningococcal B, OMV 2017-09-11 00:00:[address] [facility] [place] Meningococcal Polysaccharide (groups A, C, Y and W-135) conjugate vaccine (MCV4P) 2017-09-11 00:00:[address] [facility] [place] Meningococcal B, OMV 2017-09-11 00:00:[address] [facility] [place] Meningococcal Polysaccharide (groups A, C, Y and W-135) conjugate vaccine (MCV4P) 2017-09-11 00:00:[address] [facility] [place] Meningococcal B, OMV 2017-09-11 00:00:[address] [facility] [place] Meningococcal Polysaccharide (groups A, C, Y and W-135) conjugate vaccine (MCV4P) 2017-09-11 00:00:[address] [facility] [place] Meningococcal B, OMV 2017-09-11 00:00:[address] [facility] [place] Meningococcal Polysaccharide (groups A, C, Y and W-135) conjugate vaccine (MCV4P) 2017-09-11 00:00:[address] [facility] [place] Meningococcal B, OMV 2017-09-11 00:00:[address] [facility] [place] Meningococcal Polysaccharide (groups A, C, Y and W-135) conjugate vaccine (MCV4P) 2017-09-11 00:00:[address] [facility] [place] Meningococcal B, OMV 2017-09-11 00:00:[address] [facility] [place] Meningococcal Polysaccharide (groups A, C, Y and W-135) conjugate vaccine (MCV4P) 2017-09-11 00:00:[address] [facility] [place] Meningococcal B, OMV 2017-09-11 00:00:[address] [facility] [place] Meningococcal Polysaccharide (groups A, C, Y and W-135) conjugate vaccine (MCV4P) 2017-09-11 00:00:[address] [facility] [place] Meningococcal B, OMV 2017-09-11 00:00:[address] [facility] [place] Meningococcal Polysaccharide (groups A, C, Y and W-135) conjugate vaccine (MCV4P) 2017-09-11 00:00:[address] [facility] [place] Meningococcal B, OMV 2017-09-11 00:00:[address] [facility] [place] Meningococcal Polysaccharide (groups A, C, Y and W-135) conjugate vaccine (MCV4P) 2017-09-11 00:00:[address] [facility] [place] Meningococcal B, OMV 2017-09-11 00:00:[address] [facility] [place] Meningococcal Polysaccharide (groups A, C, Y and W-135) conjugate vaccine (MCV4P) 2017-09-11 00:00:[address] [facility] [place] Meningococcal B, OMV 2017-09-11 00:00:[address] [facility] [place] Meningococcal Polysaccharide (groups A, C, Y and W-135) conjugate vaccine (MCV4P) 2017-09-11 00:00:[address] [facility] [place] Meningococcal B, OMV 2017-09-11 00:00:[address] [facility] [place] Meningococcal Polysaccharide (groups A, C, Y and W-135) conjugate vaccine (MCV4P) 2017-09-11 00:00:[address] [facility] [place] Meningococcal B, OMV 2017-09-11 00:00:[address] [facility] [place] Meningococcal Polysaccharide (groups A, C, Y and W-135) conjugate vaccine (MCV4P) 2017-09-11 00:00:[address] [facility] [place] Meningococcal B, OMV 2017-09-11 00:00:[address] [facility] [place] Meningococcal Polysaccharide (groups A, C, Y and W-135) conjugate vaccine (MCV4P) 2017-09-11 00:00:[address] [facility] [place] Meningococcal B, OMV 2017-09-11 00:00:[address] [facility] [place] Meningococcal Polysaccharide (groups A, C, Y and W-135) conjugate vaccine (MCV4P) 2017-09-11 00:00:[address] [facility] [place] Meningococcal B, OMV 2017-09-11 00:00:[address] [facility] [place] Meningococcal Polysaccharide (groups A, C, Y and W-135) conjugate vaccine (MCV4P) 2017-09-11 00:00:[address] [facility] [place] Meningococcal B, OMV 2017-09-11 00:00:[address] [facility] [place] Meningococcal Vaccine 2012-12-08 00:00:[address] [facility] [place] Tdap 2012-12-08 00:00:[address] [facility] [place] Tdap 2012-12-08 00:00:[address] [facility] [place] Meningococcal Vaccine 2012-12-08 00:00:[address] [facility] [place] Tdap 2012-12-08 00:00:[address] [facility] [place] Meningococcal Vaccine 2012-12-08 00:00:[address] [facility] [place] Tdap 2012-12-08 00:00:[address] [facility] [place] Meningococcal Vaccine 2012-12-08 00:00:[address] [facility] [place] Tdap 2012-12-08 00:00:[address] [facility] [place] Meningococcal Vaccine 2012-12-08 00:00:[address] [facility] [place] Tdap 2012-12-08 00:00:[address] [facility] [place] Meningococcal Vaccine 2012-12-08 00:00:[address] [facility] [place] Tdap 2012-12-08 00:00:[address] [facility] [place] Meningococcal Vaccine 2012-12-08 00:00:[address] [facility] [place] Tdap 2012-12-08 00:00:[address] [facility] [place] Meningococcal Vaccine 2012-12-08 00:00:[address] [facility] [place] Tdap 2012-12-08 00:00:[address] [facility] [place] Meningococcal Vaccine 2012-12-08 00:00:[address] [facility] [place] Meningococcal Vaccine 2012-12-08 00:00:[address] [facility] [place] Tdap 2012-12-08 00:00:[address] [facility] [place] Meningococcal Vaccine 2012-12-08 00:00:[address] [facility] [place] Tdap 2012-12-08 00:00:[address] [facility] [place] Tdap 2012-12-08 00:00:[address] [facility] [place] Meningococcal Vaccine 2012-12-08 00:00:[address] [facility] [place] Tdap 2012-12-08 00:00:[address] [facility] [place] Meningococcal Vaccine 2012-12-08 00:00:[address] [facility] [place] Tdap 2012-12-08 00:00:[address] [facility] [place] Meningococcal Vaccine 2012-12-08 00:00:[address] [facility] [place] TDAP 2012-12-08 00:00:[address] [facility] [place] Meningococcal Vaccine 2012-12-08 00:00:[address] [facility] [place] TDAP 2012-12-08 00:00:[address] [facility] [place] Meningococcal Vaccine 2012-12-08 00:00:[address] [facility] [place] Meningococcal Vaccine 2012-12-08 00:00:[address] [facility] [place] TDAP 2012-12-08 00:00:[address] [facility] [place] Tdap 2012-12-08 00:00:[address] [facility] [place] Meningococcal Vaccine 2012-12-08 00:00:[address] [facility] [place] TDAP 2012-12-08 00:00:[address] [facility] [place] Meningococcal Vaccine 2012-12-08 00:00:[address] [facility] [place] TDAP 2012-12-08 00:00:[address] [facility] [place] Meningococcal Vaccine 2012-12-08 00:00:[address] [facility] [place] TDAP 2012-12-08 00:00:[address] [facility] [place] Meningococcal Vaccine 2012-12-08 00:00:[address] [facility] [place] TDAP 2012-12-08 00:00:[address] [facility] [place] Meningococcal Vaccine 2012-12-08 00:00:[address] [facility] [place] TDAP 2012-12-08 00:00:[address] [facility] [place] Meningococcal Vaccine 2012-12-08 00:00:[address] [facility] [place] TDAP 2012-12-08 00:00:[address] [facility] [place] Meningococcal Vaccine 2012-12-08 00:00:[address] [facility] [place] TDAP 2012-12-08 00:00:[address] [facility] [place] Meningococcal Vaccine 2012-12-08 00:00:[address] [facility] [place] TDAP 2012-12-08 00:00:[address] [facility] [place] Meningococcal Vaccine 2012-12-08 00:00:[address] [facility] [place] Meningococcal Vaccine 2012-12-08 00:00:[address] [facility] [place] TDAP 2012-12-08 00:00:[address] [facility] [place] Tdap 2012-12-08 00:00:[address] [facility] [place] Meningococcal Vaccine 2012-12-08 00:00:[address] [facility] [place] TDAP 2012-12-08 00:00:[address] [facility] [place] Meningococcal Vaccine 2012-12-08 00:00:[address] [facility] [place] Meningococcal Vaccine 2012-12-08 00:00:[address] [facility] [place] TDAP 2012-12-08 00:00:[address] [facility] [place] Meningococcal Vaccine 2012-12-08 00:00:[address] [facility] [place] TDAP 2012-12-08 00:00:[address] [facility] [place] Meningococcal Vaccine 2012-12-08 00:00:[address] [facility] [place] TDAP 2012-12-08 00:00:[address] [facility] [place] Meningococcal Vaccine 2012-12-08 00:00:[address] [facility] [place] TDAP 2012-12-08 00:00:[address] [facility] [place] Meningococcal Vaccine 2012-12-08 00:00:[address] [facility] [place] TDAP 2012-12-08 00:00:[address] [facility] [place] Meningococcal Vaccine 2012-12-08 00:00:[address] [facility] [place] TDAP 2012-12-08 00:00:[address] [facility] [place] Meningococcal Vaccine 2012-12-08 00:00:[address] [facility] [place] Meningococcal Vaccine 2012-12-08 00:00:[address] [facility] – [place] TDAP 2012-12-08 00:00:[address] [facility] [place] Meningococcal Vaccine 2012-12-08 00:00:[address] [facility] [place] TDAP 2012-12-08 00:00:[address] [facility] [place] Tdap 2012-12-08 00:00:[address] [facility] [place] Meningococcal Polysaccharide (groups A, C, Y and W-135) conjugate vaccine (MCV4P) 2012-12-08 00:00:[address] [facility] [place] Meningococcal Vaccine 2012-12-08 00:00:[address] [facility] [place] TDAP 2012-12-08 00:00:[address] [facility] [place] Meningococcal Polysaccharide (groups A, C, Y and W-135) conjugate vaccine (MCV4P) 2012-12-08 00:00:[address] [facility] [place] Meningococcal Vaccine 2012-12-08 00:00:[address] [facility] [place] TDAP 2012-12-08 00:00:[address] [facility] [place] Meningococcal Polysaccharide (groups A, C, Y and W-135) conjugate vaccine (MCV4P) 2012-12-08 00:00:[address] [facility] [place] Meningococcal Vaccine 2012-12-08 00:00:[address] [facility] [place] TDAP 2012-12-08 00:00:[address] [facility] [place] Meningococcal Polysaccharide (groups A, C, Y and W-135) conjugate vaccine (MCV4P) 2012-12-08 00:00:[address] [facility] [place] Meningococcal Vaccine 2012-12-08 00:00:[address] [facility] [place] TD[place] 2012-12-08 00:00:[address] [facility] [place] Meningococcal Polysaccharide (groups A, C, Y and W-135) conjugate vaccine (MCV4P) 2012-12-08 00:00:[address] [facility] [place] Meningococcal Vaccine 2012-12-08 00:00:[address] [facility] [place] TDAP 2012-12-08 00:00:[address] [facility] [place] Meningococcal Polysaccharide (groups A, C, Y and W-135) conjugate vaccine (MCV4P) 2012-12-08 00:00:[address] [facility] [place] Meningococcal Vaccine 2012-12-08 00:00:[address] [facility] [place] Tdap 2012-12-08 00:00:[address] [facility] [place] TD[place] 2012-12-08 00:00:[address] [facility] [place] Meningococcal Polysaccharide (groups A, C, Y and W-135) conjugate vaccine (MCV4P) 2012-12-08 00:00:[address] [facility] [place] Meningococcal Vaccine 2012-12-08 00:00:[address] [facility] [place] Meningococcal Vaccine 2012-12-08 00:00:[address] [facility] [place] TD[place] 2012-12-08 00:00:[address] [facility] [place] Meningococcal Polysaccharide (groups A, C, Y and W-135) conjugate vaccine (MCV4P) 2012-12-08 00:00:[address] [facility] [place] Tdap 2012-12-08 00:00:[address] [facility] [place] Meningococcal Vaccine 2012-12-08 00:00:[address] [facility] [place] TD[place] 2012-12-08 00:00:[address] [facility] [place] Meningococcal Polysaccharide (groups A, C, Y and W-135) conjugate vaccine (MCV4P) 2012-12-08 00:00:[address] [facility] [place] Meningococcal Vaccine 2012-12-08 00:00:[address] [facility] [place] TD[place] 2012-12-08 00:00:[address] [facility] [place] Meningococcal Polysaccharide (groups A, C, Y and W-135) conjugate vaccine (MCV4P) 2012-12-08 00:00:[address] [facility] [place] Meningococcal Vaccine 2012-12-08 00:00:[address] [facility] [place] TD[place] 2012-12-08 00:00:[address] [facility] [place] Meningococcal Polysaccharide (groups A, C, Y and W-135) conjugate vaccine (MCV4P) 2012-12-08 00:00:[address] [facility] [place] Meningococcal Vaccine 2012-12-08 00:00:[address] [facility] [place] TDAP 2012-12-08 00:00:[address] [facility] [place] Meningococcal Polysaccharide (groups A, C, Y and W-135) conjugate vaccine (MCV4P) 2012-12-08 00:00:[address] [facility] [place] Meningococcal Vaccine 2012-12-08 00:00:[address] [facility] [place] TD[place] 2012-12-08 00:00:[address] [facility] [place] Meningococcal Polysaccharide (groups A, C, Y and W-135) conjugate vaccine (MCV4P) 2012-12-08 00:00:[address] [facility] [place] Meningococcal Vaccine 2012-12-08 00:00:[address] [facility] [place] TD[place] 2012-12-08 00:00:[address] [facility] [place] Meningococcal Polysaccharide (groups A, C, Y and W-135) conjugate vaccine (MCV4P) 2012-12-08 00:00:[address] [facility] [place] Meningococcal Vaccine 2012-12-08 00:00:[address] [facility] [place] TD[place] 2012-12-08 00:00:[address] [facility] [place] Meningococcal Polysaccharide (groups A, C, Y and W-135) conjugate vaccine (MCV4P) 2012-12-08 00:00:[address] [facility] [place] Meningococcal Vaccine 2012-12-08 00:00:[address] [facility] [place] TD[place] 2012-12-08 00:00:[address] [facility] [place] Meningococcal Polysaccharide (groups A, C, Y and W-135) conjugate vaccine (MCV4P) 2012-12-08 00:00:[address] [facility] [place] Meningococcal Vaccine 2012-12-08 00:00:[address] [facility] [place] TDAP 2012-12-08 00:00:[address] [facility] [place] Meningococcal Polysaccharide (groups A, C, Y and W-135) conjugate vaccine (MCV4P) 2012-12-08 00:00:[address] [facility] [place] Meningococcal Vaccine 2012-12-08 00:00:[address] [facility] [place] TD[place] 2012-12-08 00:00:[address] [facility] [place] Meningococcal Polysaccharide (groups A, C, Y and W-135) conjugate vaccine (MCV4P) 2012-12-08 00:00:[address] [facility] [place] Meningococcal Vaccine 2012-12-08 00:00:[address] [facility] [place] TD[place] 2012-12-08 00:00:[address] [facility] [place] Meningococcal Polysaccharide (groups A, C, Y and W-135) conjugate vaccine (MCV4P) 2012-12-08 00:00:[address] [facility] [place] Meningococcal Vaccine 2012-12-08 00:00:[address] [facility] [place] TD[place] 2012-12-08 00:00:[address] [facility] [place] Meningococcal Polysaccharide (groups A, C, Y and W-135) conjugate vaccine (MCV4P) 2012-12-08 00:00:[address] [facility] [place] Meningococcal Vaccine 2012-12-08 00:00:[address] [facility] [place] TD[place] 2012-12-08 00:00:[address] [facility] [place] Meningococcal Polysaccharide (groups A, C, Y and W-135) conjugate vaccine (MCV4P) 2012-12-08 00:00:[address] [facility] [place] Meningococcal Vaccine 2012-12-08 00:00:[address] [facility] [place] TD[place] 2012-12-08 00:00:[address] [facility] [place] Meningococcal Polysaccharide (groups A, C, Y and W-135) conjugate vaccine (MCV4P) 2012-12-08 00:00:[address] [facility] [place] Meningococcal Vaccine 2012-12-08 00:00:[address] [facility] [place] TD[place] 2012-12-08 00:00:[address] [facility] [place] Meningococcal Polysaccharide (groups A, C, Y and W-135) conjugate vaccine (MCV4P) 2012-12-08 00:00:[address] [facility] [place] Meningococcal Vaccine 2012-12-08 00:00:[address] [facility] [place] TD[place] 2012-12-08 00:00:[address] [facility] [place] Meningococcal Polysaccharide (groups A, C, Y and W-135) conjugate vaccine (MCV4P) 2012-12-08 00:00:[address] [facility] [place] Meningococcal Vaccine 2012-12-08 00:00:[address] [facility] [place] TD[place] 2012-12-08 00:00:[address] [facility] [place] Meningococcal Polysaccharide (groups A, C, Y and W-135) conjugate vaccine (MCV4P) 2012-12-08 00:00:[address] [facility] [place] Meningococcal Vaccine 2012-12-08 00:00:[address] [facility] [place] Tdap 2012-12-08 00:00:[address] [facility] [place] Meningococcal Vaccine 2012-12-08 00:00:[address] [facility] [place] Tdap 2012-12-08 00:00:[address] [facility] [place] Meningococcal Vaccine 2012-12-08 00:00:[address] [facility] [place] Meningococcal Vaccine 2012-12-08 00:00:[address] [facility] [place] Tdap 2012-12-08 00:00:[address] [facility] [place] Meningococcal Vaccine 2012-12-08 00:00:[address] [facility] [place] Tdap 2012-12-08 00:00:[address] [facility] [place] Meningococcal Vaccine 2012-12-08 00:00:[address] [facility] [place] Tdap 2012-12-08 00:00:[address] [facility] [place] Meningococcal Vaccine 2012-12-08 00:00:[address] [facility] [place] Tdap 2012-12-08 00:00:[address] [facility] [place] Meningococcal Vaccine 2012-12-08 00:00:[address] [facility] [place] Tdap 2012-12-08 00:00:[address] [facility] [place] Meningococcal Vaccine 2012-12-08 00:00:[address] [facility] [place] Tdap 2012-12-08 00:00:[address] [facility] [place] Meningococcal Vaccine 2012-12-08 00:00:[address] [facility] [place] Tdap 2012-12-08 00:00:[address] [facility] [place] Varicella (varivax)(chicken pox) 2012-03-11 00:00:[address] [facility] [place] Varicella (varivax)(chicken pox) 2012-03-11 00:00:[address] [facility] [place] Varicella (varivax)(chicken pox) 2012-03-11 00:00:[address] [facility] [place] Varicella (varivax)(chicken pox) 2012-03-11 00:00:[address] [facility] [place] Varicella (varivax)(chicken pox) 2012-03-11 00:00:[address] [facility] [place] Varicella (varivax)(chicken pox) 2012-03-11 00:00:[address] [facility] [place] Varicella (varivax)(chicken pox) 2012-03-11 00:00:[address] [facility] [place] Varicella (varivax)(chicken pox) 2012-03-11 00:00:[address] [facility] [place] Varicella (varivax)(chicken pox) 2012-03-11 00:00:[address] [facility] [place] Varicella (varivax)(chicken pox) 2012-03-11 00:00:[address] [facility] [place] Varicella (varivax)(chicken pox) 2012-03-11 00:00:[address] [facility] [place] Varicella (varivax)(chicken pox) 2012-03-11 00:00:[address] [facility] [place] Varicella (varivax)(chicken pox) 2012-03-11 00:00:[address] [facility] [place] Varicella (varivax)(chicken pox) 2012-03-11 00:00:[address] [facility] [place] Varicella (varivax)(chicken pox) 2012-03-11 00:00:[address] [facility] [place] Varicella (varivax)(chicken pox) 2012-03-11 00:00:[address] [facility] [place] Varicella (varivax)(chicken pox) 2012-03-11 00:00:[address] [facility] [place] Varicella (varivax)(chicken pox) 2012-03-11 00:00:[address] [facility] [place] Varicella (varivax)(chicken pox) 2012-03-11 00:00:[address] [facility] [place] Varicella (varivax)(chicken pox) 2012-03-11 00:00:[address] [facility] [place] Varicella (varivax)(chicken pox) 2012-03-11 00:00:[address] [facility] [place] Varicella (varivax)(chicken pox) 2012-03-11 00:00:[address] [facility] [place] Varicella (varivax)(chicken pox) 2012-03-11 00:00:[address] [facility] [place] Varicella (varivax)(chicken pox) 2012-03-11 00:00:[address] [facility] [place] Varicella (varivax)(chicken pox) 2012-03-11 00:00:[address] [facility] [place] Varicella (varivax)(chicken pox) 2012-03-11 00:00:[address] [facility] [place] Varicella (varivax)(chicken pox) 2012-03-11 00:00:[address] [facility] [place] Varicella (varivax)(chicken pox) 2012-03-11 00:00:[address] [facility] [place] Varicella (varivax)(chicken pox) 2012-03-11 00:00:[address] [facility] [place] Varicella (varivax)(chicken pox) 2012-03-11 00:00:[address] [facility] [place] Varicella (varivax)(chicken pox) 2012-03-11 00:00:[address] [facility] [place] Varicella (varivax)(chicken pox) 2012-03-11 00:00:[address] [facility] [place] Varicella (varivax)(chicken pox) 2012-03-11 00:00:[address] [facility] [place] Varicella (varivax)(chicken pox) 2012-03-11 00:00:[address] [facility] [place] Varicella (varivax)(chicken pox) 2012-03-11 00:00:[address] [facility] [place] Varicella (varivax)(chicken pox) 2012-03-11 00:00:[address] [facility] [place] Varicella (varivax)(chicken pox) 2012-03-11 00:00:[address] [facility] [place] Varicella (varivax)(chicken pox) 2012-03-11 00:00:[address] [facility] [place] Varicella (varivax)(chicken pox) 2012-03-11 00:00:[address] [facility] [place] Varicella (varivax)(chicken pox) 2012-03-11 00:00:[address] [facility] [place] Varicella (varivax)(chicken pox) 2012-03-11 00:00:[address] [facility] [place] Varicella (varivax)(chicken pox) 2012-03-11 00:00:[address] [facility] [place] Varicella (varivax)(chicken pox) 2012-03-11 00:00:[address] [facility] [place] Varicella (varivax)(chicken pox) 2012-03-11 00:00:[address] [facility] [place] Varicella (varivax)(chicken pox) 2012-03-11 00:00:[address] [facility] [place] Varicella (varivax)(chicken pox) 2012-03-11 00:00:[address] [facility] [place] Varicella (varivax)(chicken pox) 2012-03-11 00:00:[address] [facility] [place] Varicella (varivax)(chicken pox) 2012-03-11 00:00:[address] [facility] [place] Varicella (varivax)(chicken pox) 2012-03-11 00:00:[address] [facility] [place] Varicella (varivax)(chicken pox) 2012-03-11 00:00:[address] [facility] [place] Varicella (varivax)(chicken pox) 2012-03-11 00:00:[address] [facility] [place] Varicella (varivax)(chicken pox) 2012-03-11 00:00:[address] [facility] [place] Varicella (varivax)(chicken pox) 2012-03-11 00:00:[address] [facility] [place] Varicella (varivax)(chicken pox) 2012-03-11 00:00:[address] [facility] [place] Varicella (varivax)(chicken pox) 2012-03-11 00:00:[address] [facility] [place] Varicella (varivax)(chicken pox) 2012-03-11 00:00:[address] [facility] [place] Varicella (varivax)(chicken pox) 2012-03-11 00:00:[address] [facility] [place] Varicella (varivax)(chicken pox) 2012-03-11 00:00:[address] [facility] [place] Varicella (varivax)(chicken pox) 2012-03-11 00:00:[address] [facility] [place] Varicella (varivax)(chicken pox) 2012-03-11 00:00:[address] [facility] [place] Varicella (varivax)(chicken pox) 2012-03-11 00:00:[address] [facility] [place] Varicella (varivax)(chicken pox) 2012-03-11 00:00:[address] [facility] [place] Varicella (varivax)(chicken pox) 2012-03-11 00:00:[address] [facility] [place] Varicella (varivax)(chicken pox) 2012-03-11 00:00:[address] [facility] [place] Varicella (varivax)(chicken pox) 2012-03-11 00:00:[address] [facility] [place] Varicella (varivax)(chicken pox) 2012-03-11 00:00:[address] [facility] [place] Varicella (varivax)(chicken pox) 2012-03-11 00:00:[address] [facility] [place] Varicella (varivax)(chicken pox) 2012-03-11 00:00:[address] [facility] [place] Varicella (varivax)(chicken pox) 2012-03-11 00:00:[address] [facility] [place] Varicella (varivax)(chicken pox) 2012-03-11 00:00:[address] [facility] [place] Varicella (varivax)(chicken pox) 2012-03-11 00:00:[address] [facility] [place] Varicella (varivax)(chicken pox) 2012-03-11 00:00:[address] [facility] [place] Varicella (varivax)(chicken pox) 2012-03-11 00:00:[address] [facility] [place] Influenza Virus Vaccine Quad IM 6-35 MO 2010-02-28 00:00:[address] [facility] [place] Influenza Virus Vaccine Quad IM 6-35 MO 2010-02-28 00:00:[address] [facility] [place] Influenza Virus Vaccine Quad IM 6-35 MO 2010-02-28 00:00:[address] [facility] [place] Influenza Virus Vaccine Quad IM 6-35 MO 2010-02-28 00:00:[address] [facility] [place] Influenza Virus Vaccine Quad IM 6-35 MO 2010-02-28 00:00:[address] [facility] [place] Influenza Virus Vaccine Quad IM 6-35 MO 2010-02-28 00:00:[address] [facility] [place] Influenza Virus Vaccine Quad IM 6-35 MO 2010-02-28 00:00:[address] [facility] [place] Influenza Virus Vaccine Quad IM 6-35 MO 2010-02-28 00:00:[address] [facility] [place] Influenza Virus Vaccine Quad IM 6-35 MO 2010-02-28 00:00:[address] [facility] [place] Influenza Virus Vaccine Quad IM 6-35 MO 2010-02-28 00:00:[address] [facility] [place] Influenza Virus Vaccine Quad IM 6-35 MO 2010-02-28 00:00:[address] [facility] [place] Influenza Virus Vaccine Quad IM 6-35 MO 2010-02-28 00:00:[address] [facility] [place] Influenza Virus Vaccine Quad IM 6-35 MO 2010-02-28 00:00:[address] [facility] [place] Influenza Virus Vaccine Quad IM 6-35 MO 2010-02-28 00:00:[address] [facility] [place] Influenza Virus Vaccine Quad IM 6-35 MO 2010-02-28 00:00:[address] [facility] [place] Influenza Virus Vaccine Quad IM 6-35 MO 2010-02-28 00:00:[address] [facility] [place] Influenza Virus Vaccine Quad IM 6-35 MO 2010-02-28 00:00:[address] [facility] [place] Influenza Virus Vaccine Quad IM 6-35 MO 2010-02-28 00:00:[address] [facility] [place] Influenza Virus Vaccine Quad IM 6-35 MO 2010-02-28 00:00:[address] [facility] [place] Influenza Virus Vaccine Quad IM 6-35 MO 2010-02-28 00:00:[address] [facility] [place] Influenza Virus Vaccine Quad IM 6-35 MO 2010-02-28 00:00:[address] [facility] [place] Influenza Virus Vaccine Quad IM 6-35 MO 2010-02-28 00:00:[address] [facility] [place] Influenza Virus Vaccine Quad IM 6-35 MO 2010-02-28 00:00:[address] [facility] [place] Influenza Virus Vaccine Quad IM 6-35 MO 2010-02-28 00:00:[address] [facility] [place] Influenza Virus Vaccine Quad IM 6-35 MO 2010-02-28 00:00:[address] [facility] [place] Influenza Virus Vaccine Quad IM 6-35 MO 2010-02-28 00:00:[address] [facility] [place] Influenza Virus Vaccine Quad IM 6-35 MO 2010-02-28 00:00:[address] [facility] [place] Influenza Virus Vaccine Quad IM 6-35 MO 2010-02-28 00:00:[address] [facility] [place] Influenza Virus Vaccine Quad IM 6-35 MO 2010-02-28 00:00:[address] [facility] [place] Influenza Virus Vaccine Quad IM 6-35 MO 2010-02-28 00:00:[address] [facility] [place] Influenza Virus Vaccine Quad IM 6-35 MO 2010-02-28 00:00:[address] [facility] [place] Influenza Virus Vaccine Quad IM 6-35 MO 2010-02-28 00:00:[address] [facility] [place] Influenza Virus Vaccine Quad IM 6-35 MO 2010-02-28 00:00:[address] [facility] [place] Influenza Virus Vaccine Quad IM 6-35 MO 2010-02-28 00:00:[address] [facility] [place] Influenza Virus Vaccine Quad IM 6-35 MO 2010-02-28 00:00:[address] [facility] [place] Influenza Virus Vaccine Quad IM 6-35 MO 2010-02-28 00:00:[address] [facility] [place] Influenza Virus Vaccine Quad IM 6-35 MO 2010-02-28 00:00:[address] [facility] [place] Influenza Virus Vaccine (3+ yrs) 2010-02-28 00:00:[address] [facility] [place] Influenza Virus Vaccine Quad IM 6-35 MO 2010-02-28 00:00:[address] [facility] [place] Influenza Virus Vaccine Quad IM 6-35 MO 2010-02-28 00:00:[address] [facility] [place] Influenza Virus Vaccine (3+ yrs) 2010-02-28 00:00:[address] [facility] [place] Influenza Virus Vaccine Quad IM 6-35 MO 2010-02-28 00:00:[address] [facility] [place] Influenza Virus Vaccine (3+ yrs) 2010-02-28 00:00:[address] [facility] [place] Influenza Virus Vaccine Quad IM 6-35 MO 2010-02-28 00:00:[address] [facility] [place] Influenza Virus Vaccine (3+ yrs) 2010-02-28 00:00:[address] [facility] [place] Influenza Virus Vaccine Quad IM 6-35 MO 2010-02-28 00:00:[address] [facility] [place] Influenza Virus Vaccine (3+ yrs) 2010-02-28 00:00:[address] [facility] [place] Influenza Virus Vaccine Quad IM 6-35 MO 2010-02-28 00:00:[address] [facility] [place] Influenza Virus Vaccine (3+ yrs) 2010-02-28 00:00:[address] [facility] [place] Influenza Virus Vaccine Quad IM 6-35 MO 2010-02-28 00:00:[address] [facility] [place] Influenza Virus Vaccine (3+ yrs) 2010-02-28 00:00:[address] [facility] [place] Influenza Virus Vaccine Quad IM 6-35 MO 2010-02-28 00:00:[address] [facility] [place] Influenza Virus Vaccine (3+ yrs) 2010-02-28 00:00:[address] [facility] [place] Influenza Virus Vaccine Quad IM 6-35 MO 2010-02-28 00:00:[address] [facility] [place] Influenza Virus Vaccine Quad IM 6-35 MO 2010-02-28 00:00:[address] [facility] [place] Influenza Virus Vaccine (3+ yrs) 2010-02-28 00:00:[address] [facility] [place] Influenza Virus Vaccine Quad IM 6-35 MO 2010-02-28 00:00:[address] [facility] [place] Influenza Virus Vaccine Quad IM 6-35 MO 2010-02-28 00:00:[address] [facility] [place] Influenza Virus Vaccine (3+ yrs) 2010-02-28 00:00:[address] [facility] [place] Influenza Virus Vaccine Quad IM 6-35 MO 2010-02-28 00:00:[address] [facility] [place] Influenza Virus Vaccine (3+ yrs) 2010-02-28 00:00:[address] [facility] [place] Influenza Virus Vaccine Quad IM 6-35 MO 2010-02-28 00:00:[address] [facility] [place] Influenza Virus Vaccine (3+ yrs) 2010-02-28 00:00:[address] [facility] [place] Influenza Virus Vaccine Quad IM 6-35 MO 2010-02-28 00:00:[address] [facility] [place] Influenza Virus Vaccine (3+ yrs) 2010-02-28 00:00:[address] [facility] [place] Influenza Virus Vaccine Quad IM 6-35 MO 2010-02-28 00:00:[address] [facility] [place] Influenza Virus Vaccine (3+ yrs) 2010-02-28 00:00:[address] [facility] [place] Influenza Virus Vaccine Quad IM 6-35 MO 2010-02-28 00:00:[address] [facility] [place] Influenza Virus Vaccine (3+ yrs) 2010-02-28 00:00:[address] [facility] [place] Influenza Virus Vaccine Quad IM 6-35 MO 2010-02-28 00:00:[address] [facility] [place] Influenza Virus Vaccine (3+ yrs) 2010-02-28 00:00:[address] [facility] [place] Influenza Virus Vaccine Quad IM 6-35 MO 2010-02-28 00:00:[address] [facility] [place] Influenza Virus Vaccine (3+ yrs) 2010-02-28 00:00:[address] [facility] [place] Influenza Virus Vaccine Quad IM 6-35 MO 2010-02-28 00:00:[address] [facility] [place] Influenza Virus Vaccine (3+ yrs) 2010-02-28 00:00:[address] [facility] [place] Influenza Virus Vaccine Quad IM 6-35 MO 2010-02-28 00:00:[address] [facility] [place] Influenza Virus Vaccine (3+ yrs) 2010-02-28 00:00:[address] [facility] [place] Influenza Virus Vaccine Quad IM 6-35 MO 2010-02-28 00:00:[address] [facility] [place] Influenza Virus Vaccine (3+ yrs) 2010-02-28 00:00:[address] [facility] [place] Influenza Virus Vaccine Quad IM 6-35 MO 2010-02-28 00:00:[address] [facility] [place] Influenza Virus Vaccine (3+ yrs) 2010-02-28 00:00:[address] [facility] [place] Influenza Virus Vaccine Quad IM 6-35 MO 2010-02-28 00:00:[address] [facility] [place] Influenza Virus Vaccine (3+ yrs) 2010-02-28 00:00:[address] [facility] [place] Influenza Virus Vaccine Quad IM 6-35 MO 2010-02-28 00:00:[address] [facility] [place] Influenza Virus Vaccine (3+ yrs) 2010-02-28 00:00:[address] [facility] [place] Influenza Virus Vaccine Quad IM 6-35 MO 2010-02-28 00:00:[address] [facility] [place] Influenza Virus Vaccine (3+ yrs) 2010-02-28 00:00:[address] [facility] [place] Influenza Virus Vaccine Quad IM 6-35 MO 2010-02-28 00:00:[address] [facility] [place] Influenza Virus Vaccine (3+ yrs) 2010-02-28 00:00:[address] [facility] [place] Influenza Virus Vaccine Quad IM 6-35 MO 2010-02-28 00:00:[address] [facility] [place] Influenza Virus Vaccine Quad IM 6-35 MO 2010-02-28 00:00:[address] [facility] [place] Influenza Virus Vaccine Quad IM 6-35 MO 2010-02-28 00:00:[address] [facility] [place] Influenza Virus Vaccine Quad IM 6-35 MO 2010-02-28 00:00:[address] [facility] [place] Influenza Virus Vaccine Quad IM 6-35 MO 2010-02-28 00:00:[address] [facility] [place] Influenza Virus Vaccine Quad IM 6-35 MO 2010-02-28 00:00:[address] [facility] [place] Influenza Virus Vaccine Quad IM 6-35 MO 2010-02-28 00:00:[address] [facility] [place] Influenza Virus Vaccine Quad IM 6-35 MO 2010-02-28 00:00:[address] [facility] [place] Influenza Virus Vaccine Quad IM 6-35 MO 2010-02-28 00:00:[address] [facility] [place] HEPA,NOS 2006-01-08 00:00:[address] [facility] [place] HEPATITIS A 2006-01-08 00:00:[address] [facility] [place] HEPA,NOS 2006-01-08 00:00:[address] [facility] [place] HEPATITIS A 2006-01-08 00:00:[address] [facility] [place] HEPA,NOS 2006-01-08 00:00:[address] [facility] [place] HEPATITIS A 2006-01-08 00:00:[address] [facility] [place] HEPA,NOS 2006-01-08 00:00:[address] [facility] [place] HEPATITIS A 2006-01-08 00:00:[address] [facility] [place] HEPA,NOS 2006-01-08 00:00:[address] [facility] [place] HEPATITIS A 2006-01-08 00:00:[address] [facility] [place] HEPA,NOS 2006-01-08 00:00:[address] [facility] [place] HEPATITIS A 2006-01-08 00:00:[address] [facility] [place] HEPA,NOS 2006-01-08 00:00:[address] [facility] [place] HEPATITIS A 2006-01-08 00:00:[address] [facility] [place] HEPA,NOS 2006-01-08 00:00:[address] [facility] [place] HEPATITIS A 2006-01-08 00:00:[address] [facility] [place] HEPA,NOS 2006-01-08 00:00:[address] [facility] [place] HEPATITIS A 2006-01-08 00:00:00 Completed [facility] HEPA,NOS 2006-01-08 00:00:[address] [facility] [place] HEPATITIS A 2006-01-08 00:00:00 Completed [facility] HEPA,NOS 2006-01-08 00:00:[address] [facility] [place] HEPATITIS A 2006-01-08 00:00:00 Completed [facility] HEPA,NOS 2006-01-08 00:00:[address] [facility] [place] HEPATITIS A 2006-01-08 00:00:00 Completed [facility] HEPA,NOS 2006-01-08 00:00:[address] [facility] [place] HEPATITIS A 2006-01-08 00:00:[address] [facility] [place] HEPA,NOS 2006-01-08 00:00:[address] [facility] [place] HEPATITIS A 2006-01-08 00:00:[address] [facility] [place] HEPA,NOS 2006-01-08 00:00:[address] [facility] [place] HEPATITIS A 2006-01-08 00:00:[address] [facility] [place] HEPA,NOS 2006-01-08 00:00:[address] [facility] [place] HEPATITIS A 2006-01-08 00:00:[address] [facility] [place] HEPA,NOS 2006-01-08 00:00:[address] [facility] [place] HEPATITIS A 2006-01-08 00:00:[address] [facility] [place] HEPA,NOS 2006-01-08 00:00:[address] [facility] [place] HEPATITIS A 2006-01-08 00:00:00 Completed [facility] HEPA,NOS 2006-01-08 00:00:[address] [facility] [place] HEPATITIS A 2006-01-08 00:00:00 Completed [facility] HEPA,NOS 2006-01-08 00:00:[address] [facility] [place] HEPATITIS A 2006-01-08 00:00:00 Completed [facility] HEPA,NOS 2006-01-08 00:00:[address] [facility] [place] HEPATITIS A 2006-01-08 00:00:00 Completed [facility] HEPA,NOS 2006-01-08 00:00:[address] [facility] [place] HEPATITIS A 2006-01-08 00:00:[address] [facility] [place] HEPA,NOS 2006-01-08 00:00:[address] [facility] [place] HEPATITIS A 2006-01-08 00:00:[address] [facility] [place] HEPA,NOS 2006-01-08 00:00:[address] [facility] [place] HEPATITIS A 2006-01-08 00:00:[address] [facility] [place] HEPA,NOS 2006-01-08 00:00:[address] [facility] [place] HEPATITIS A 2006-01-08 00:00:[address] [facility] [place] MMR 2005-01-10 00:00:[address] [facility] [place] Pneumococcal 13 Conjugate, PCV13 (Prevnar 13) 2005-01-10 00:00:[address] [facility] [place] Polio (IPV/OPV) 2005-01-10 00:00:[address] [facility] [place] Polio (IPV/OPV) 2005-01-10 00:00:[address] [facility] [place] DTAP 2005-01-10 00:00:[address] [facility] [place] HIB 4 Dose Schedule 2005-01-10 00:00:[address] [facility] [place] MMR 2005-01-10 00:00:[address] [facility] [place] Pneumococcal 13 Conjugate, PCV13 (Prevnar 13) 2005-01-10 00:00:[address] [facility] [place] Polio (IPV/OPV) 2005-01-10 00:00:[address] [facility] [place] DTAP 2005-01-10 00:00:[address] [facility] [place] HIB 4 Dose Schedule 2005-01-10 00:00:[address] [facility] [place] MMR 2005-01-10 00:00:[address] [facility] [place] Pneumococcal 13 Conjugate, PCV13 (Prevnar 13) 2005-01-10 00:00:[address] [facility] [place] Polio (IPV/OPV) 2005-01-10 00:00:[address] [facility] [place] DTAP 2005-01-10 00:00:[address] [facility] [place] HIB 4 Dose Schedule 2005-01-10 00:00:[address] [facility] [place] MMR 2005-01-10 00:00:[address] [facility] [place] Pneumococcal 13 Conjugate, PCV13 (Prevnar 13) 2005-01-10 00:00:[address] [facility] [place] Polio (IPV/OPV) 2005-01-10 00:00:[address] [facility] [place] DTAP 2005-01-10 00:00:[address] [facility] [place] HIB 4 Dose Schedule 2005-01-10 00:00:[address] [facility] [place] MMR 2005-01-10 00:00:[address] [facility] [place] Pneumococcal 13 Conjugate, PCV13 (Prevnar 13) 2005-01-10 00:00:[address] [facility] [place] Polio (IPV/OPV) 2005-01-10 00:00:[address] [facility] [place] DTAP 2005-01-10 00:00:[address] [facility] [place] HIB 4 Dose Schedule 2005-01-10 00:00:[address] [facility] [place] DTAP 2005-01-10 00:00:[address] [facility] [place] MMR 2005-01-10 00:00:[address] [facility] [place] Pneumococcal 13 Conjugate, PCV13 (Prevnar 13) 2005-01-10 00:00:[address] [facility] [place] Polio (IPV/OPV) 2005-01-10 00:00:[address] [facility] [place] DTAP 2005-01-10 00:00:[address] [facility] [place] DTAP 2005-01-10 00:00:[address] [facility] [place] HIB 4 Dose Schedule 2005-01-10 00:00:[address] [facility] [place] HIB 4 Dose Schedule 2005-01-10 00:00:[address] [facility] [place] MMR 2005-01-10 00:00:[address] [facility] [place] Pneumococcal 13 Conjugate, PCV13 (Prevnar 13) 2005-01-10 00:00:[address] [facility] [place] Polio (IPV/OPV) 2005-01-10 00:00:[address] [facility] [place] DTAP 2005-01-10 00:00:[address] [facility] [place] HIB 4 Dose Schedule 2005-01-10 00:00:[address] [facility] [place] MMR 2005-01-10 00:00:[address] [facility] [place] Pneumococcal 13 Conjugate, PCV13 (Prevnar 13) 2005-01-10 00:00:[address] [facility] [place] Polio (IPV/OPV) 2005-01-10 00:00:[address] [facility] [place] DTAP 2005-01-10 00:00:[address] [facility] [place] HIB 4 Dose Schedule 2005-01-10 00:00:[address] [facility] [place] MMR 2005-01-10 00:00:[address] [facility] [place] Pneumococcal 13 Conjugate, PCV13 (Prevnar 13) 2005-01-10 00:00:[address] [facility] [place] Polio (IPV/OPV) 2005-01-10 00:00:[address] [facility] [place] MMR 2005-01-10 00:00:[address] [facility] [place] Pneumococcal 13 Conjugate, PCV13 (Prevnar 13) 2005-01-10 00:00:[address] [facility] [place] DTAP 2005-01-10 00:00:[address] [facility] [place] HIB 4 Dose Schedule 2005-01-10 00:00:[address] [facility] [place] MMR 2005-01-10 00:00:[address] [facility] [place] Pneumococcal 13 Conjugate, PCV13 (Prevnar 13) 2005-01-10 00:00:[address] [facility] [place] Polio (IPV/OPV) 2005-01-10 00:00:[address] [facility] [place] Polio (IPV/OPV) 2005-01-10 00:00:[address] [facility] [place] DTAP 2005-01-10 00:00:[address] [facility] [place] HIB 4 Dose Schedule 2005-01-10 00:00:[address] [facility] [place] MMR 2005-01-10 00:00:[address] [facility] [place] Pneumococcal 13 Conjugate, PCV13 (Prevnar 13) 2005-01-10 00:00:[address] [facility] [place] Polio (IPV/OPV) 2005-01-10 00:00:[address] [facility] [place] DTAP 2005-01-10 00:00:[address] [facility] [place] HIB 4 Dose Schedule 2005-01-10 00:00:[address] [facility] [place] MMR 2005-01-10 00:00:[address] [facility] [place] Pneumococcal 13 Conjugate, PCV13 (Prevnar 13) 2005-01-10 00:00:[address] [facility] [place] Polio (IPV/OPV) 2005-01-10 00:00:[address] [facility] [place] DTAP 2005-01-10 00:00:[address] [facility] [place] DTAP 2005-01-10 00:00:[address] [facility] [place] HIB 4 Dose Schedule 2005-01-10 00:00:[address] [facility] [place] HIB 4 Dose Schedule 2005-01-10 00:00:[address] [facility] [place] MMR 2005-01-10 00:00:[address] [facility] [place] Pneumococcal 13 Conjugate, PCV13 (Prevnar 13) 2005-01-10 00:00:[address] [facility] [place] Polio (IPV/OPV) 2005-01-10 00:00:[address] [facility] [place] DTAP 2005-01-10 00:00:[address] [facility] [place] HIB 4 Dose Schedule 2005-01-10 00:00:[address] [facility] [place] MMR 2005-01-10 00:00:[address] [facility] [place] Pneumococcal 13 Conjugate, PCV13 (Prevnar 13) 2005-01-10 00:00:[address] [facility] [place] Polio (IPV/OPV) 2005-01-10 00:00:[address] [facility] [place] HIB 4 Dose Schedule 2005-01-10 00:00:[address] [facility] [place] MMR 2005-01-10 00:00:[address] [facility] [place] Pneumococcal 13 Conjugate, PCV13 (Prevnar 13) 2005-01-10 00:00:[address] [facility] [place] DTAP 2005-01-10 00:00:[address] [facility] [place] HIB 4 Dose Schedule 2005-01-10 00:00:[address] [facility] [place] MMR 2005-01-10 00:00:[address] [facility] [place] Pneumococcal 13 Conjugate, PCV13 (Prevnar 13) 2005-01-10 00:00:[address] [facility] [place] Polio (IPV/OPV) 2005-01-10 00:00:[address] [facility] [place] Polio (IPV/OPV) 2005-01-10 00:00:[address] [facility] [place] DTAP 2005-01-10 00:00:[address] [facility] [place] HIB 4 Dose Schedule 2005-01-10 00:00:[address] [facility] [place] MMR 2005-01-10 00:00:[address] [facility] [place] Pneumococcal 13 Conjugate, PCV13 (Prevnar 13) 2005-01-10 00:00:[address] [facility] [place] Polio (IPV/OPV) 2005-01-10 00:00:[address] [facility] [place] DTAP 2005-01-10 00:00:[address] [facility] [place] HIB 4 Dose Schedule 2005-01-10 00:00:[address] [facility] [place] MMR 2005-01-10 00:00:[address] [facility] [place] Pneumococcal 13 Conjugate, PCV13 (Prevnar 13) 2005-01-10 00:00:[address] [facility] [place] Polio (IPV/OPV) 2005-01-10 00:00:[address] [facility] [place] DTAP 2005-01-10 00:00:[address] [facility] [place] HIB 4 Dose Schedule 2005-01-10 00:00:[address] [facility] [place] MMR 2005-01-10 00:00:[address] [facility] [place] Pneumococcal 13 Conjugate, PCV13 (Prevnar 13) 2005-01-10 00:00:[address] [facility] [place] Polio (IPV/OPV) 2005-01-10 00:00:[address] [facility] [place] DTAP 2005-01-10 00:00:[address] [facility] [place] HIB 4 Dose Schedule 2005-01-10 00:00:[address] [facility] [place] MMR 2005-01-10 00:00:[address] [facility] [place] Pneumococcal 13 Conjugate, PCV13 (Prevnar 13) 2005-01-10 00:00:[address] [facility] [place] Polio (IPV/OPV) 2005-01-10 00:00:[address] [facility] [place] DTAP 2005-01-10 00:00:[address] [facility] [place] HIB 4 Dose Schedule 2005-01-10 00:00:[address] [facility] [place] MMR 2005-01-10 00:00:[address] [facility] [place] Pneumococcal 13 Conjugate, PCV13 (Prevnar 13) 2005-01-10 00:00:[address] [facility] [place] Polio (IPV/OPV) 2005-01-10 00:00:[address] [facility] [place] DTAP 2005-01-10 00:00:[address] [facility] [place] DTAP 2005-01-10 00:00:[address] [facility] [place] HIB 4 Dose Schedule 2005-01-10 00:00:[address] [facility] [place] MMR 2005-01-10 00:00:[address] [facility] [place] Pneumococcal 13 Conjugate, PCV13 (Prevnar 13) 2005-01-10 00:00:[address] [facility] [place] Polio (IPV/OPV) 2005-01-10 00:00:[address] [facility] [place] DTAP 2005-01-10 00:00:[address] [facility] [place] HIB 4 Dose Schedule 2005-01-10 00:00:[address] [facility] [place] HIB 4 Dose Schedule 2005-01-10 00:00:[address] [facility] [place] MMR 2005-01-10 00:00:[address] [facility] [place] Pneumococcal 13 Conjugate, PCV13 (Prevnar 13) 2005-01-10 00:00:00 Completed [facility] [place] Polio (IPV/OPV) 2005-01-10 00:00:[address] [facility] [place] DTAP 2005-01-10 00:00:[address] [facility] [place] HIB 4 Dose Schedule 2005-01-10 00:00:[address] [facility] [place] MMR 2005-01-10 00:00:[address] [facility] [place] Pneumococcal 13 Conjugate, PCV13 (Prevnar 13) 2005-01-10 00:00:[address] [facility] [place] Polio (IPV/OPV) 2005-01-10 00:00:[address] [facility] [place] MMR 2005-01-10 00:00:[address] [facility] [place] Pneumococcal 13 Conjugate, PCV13 (Prevnar 13) 2005-01-10 00:00:[address] [facility] [place] DTAP 2005-01-10 00:00:[address] [facility] [place] HIB 4 Dose Schedule 2005-01-10 00:00:[address] [facility] [place] MMR 2005-01-10 00:00:[address] [facility] [place] Pneumococcal 13 Conjugate, PCV13 (Prevnar 13) 2005-01-10 00:00:[address] [facility] [place] Polio (IPV/OPV) 2005-01-10 00:00:[address] [facility] [place] Polio (IPV/OPV) 2005-01-10 00:00:[address] [facility] [place] DTAP 2005-01-10 00:00:[address] [facility] [place] HIB 4 Dose Schedule 2005-01-10 00:00:[address] [facility] [place] MMR 2005-01-10 00:00:[address] [facility] [place] Pneumococcal 13 Conjugate, PCV13 (Prevnar 13) 2005-01-10 00:00:[address] [facility] [place] Polio (IPV/OPV) 2005-01-10 00:00:[address] [facility] [place] DTAP 2005-01-10 00:00:[address] [facility] [place] HIB 4 Dose Schedule 2005-01-10 00:00:[address] [facility] [place] MMR 2005-01-10 00:00:[address] [facility] [place] Pneumococcal 13 Conjugate, PCV13 (Prevnar 13) 2005-01-10 00:00:[address] [facility] [place] Polio (IPV/OPV) 2005-01-10 00:00:[address] [facility] [place] DTAP 2005-01-10 00:00:[address] [facility] [place] HIB 4 Dose Schedule 2005-01-10 00:00:[address] [facility] [place] MMR 2005-01-10 00:00:[address] [facility] [place] Pneumococcal 13 Conjugate, PCV13 (Prevnar 13) 2005-01-10 00:00:[address] [facility] [place] Polio (IPV/OPV) 2005-01-10 00:00:[address] [facility] [place] DTAP 2005-01-10 00:00:[address] [facility] [place] HIB 4 Dose Schedule 2005-01-10 00:00:[address] [facility] [place] MMR 2005-01-10 00:00:[address] [facility] [place] Pneumococcal 13 Conjugate, PCV13 (Prevnar 13) 2005-01-10 00:00:[address] [facility] [place] Polio (IPV/OPV) 2005-01-10 00:00:[address] [facility] [place] DTAP 2005-01-10 00:00:[address] [facility] [place] HIB 4 Dose Schedule 2005-01-10 00:00:[address] [facility] [place] MMR 2005-01-10 00:00:[address] [facility] [place] Pneumococcal 13 Conjugate, PCV13 (Prevnar 13) 2005-01-10 00:00:[address] [facility] [place] Polio (IPV/OPV) 2005-01-10 00:00:[address] [facility] [place] DTAP 2005-01-10 00:00:[address] [facility] [place] DTAP 2005-01-10 00:00:[address] [facility] [place] HIB 4 Dose Schedule 2005-01-10 00:00:[address] [facility] [place] MMR 2005-01-10 00:00:[address] [facility] [place] Pneumococcal 13 Conjugate, PCV13 (Prevnar 13) 2005-01-10 00:00:[address] [facility] [place] Polio (IPV/OPV) 2005-01-10 00:00:[address] [facility] [place] MMR 2005-01-10 00:00:[address] [facility] [place] HIB 4 Dose Schedule 2005-01-10 00:00:[address] [facility] [place] DTAP 2005-01-10 00:00:[address] [facility] [place] HIB 4 Dose Schedule 2005-01-10 00:00:[address] [facility] [place] MMR 2005-01-10 00:00:[address] [facility] [place] Pneumococcal 13 Conjugate, PCV13 (Prevnar 13) 2005-01-10 00:00:[address] [facility] [place] Polio (IPV/OPV) 2005-01-10 00:00:[address] [facility] [place] DTAP 2005-01-10 00:00:[address] [facility] [place] HIB 4 Dose Schedule 2005-01-10 00:00:[address] [facility] [place] MMR 2005-01-10 00:00:[address] [facility] [place] Pneumococcal 13 Conjugate, PCV13 (Prevnar 13) 2005-01-10 00:00:[address] [facility] [place] Polio (IPV/OPV) 2005-01-10 00:00:[address] [facility] [place] MMR 2005-01-10 00:00:[address] [facility] [place] Pneumococcal 13 Conjugate, PCV13 (Prevnar 13) 2005-01-10 00:00:[address] [facility] [place] Pneumococcal 13 Conjugate, PCV13 (Prevnar 13) 2005-01-10 00:00:[address] [facility] [place] DTAP 2005-01-10 00:00:[address] [facility] [place] HIB 4 Dose Schedule 2005-01-10 00:00:[address] [facility] [place] MMR 2005-01-10 00:00:[address] [facility] [place] Pneumococcal 13 Conjugate, PCV13 (Prevnar 13) 2005-01-10 00:00:[address] [facility] [place] Polio (IPV/OPV) 2005-01-10 00:00:[address] [facility] [place] Polio (IPV/OPV) 2005-01-10 00:00:[address] [facility] [place] DTaP, Unspecified Formulation 2005-01-10 00:00:[address] [facility] [place] HEPA,NOS 2005-01-10 00:00:[address] [facility] [place] Hib-HbOC 2005-01-10 00:00:[address] [facility] [place] IPV 2005-01-10 00:00:[address] [facility] [place] Pneumococcal 7 Conjugate, PCV7 (Prevnar7) 2005-01-10 00:00:[address] [facility] [place] DTAP 2005-01-10 00:00:[address] [facility] [place] HIB 4 Dose Schedule 2005-01-10 00:00:[address] [facility] [place] MMR 2005-01-10 00:00:[address] [facility] [place] Pneumococcal 13 Conjugate, PCV13 (Prevnar 13) 2005-01-10 00:00:[address] [facility] [place] Polio (IPV/OPV) 2005-01-10 00:00:[address] [facility] [place] DTaP, Unspecified Formulation 2005-01-10 00:00:[address] [facility] [place] HEPA,NOS 2005-01-10 00:00:[address] [facility] [place] Hib-HbOC 2005-01-10 00:00:[address] [facility] [place] IPV 2005-01-10 00:00:[address] [facility] [place] Pneumococcal 7 Conjugate, PCV7 (Prevnar7) 2005-01-10 00:00:[address] [facility] [place] DTAP 2005-01-10 00:00:[address] [facility] [place] HIB 4 Dose Schedule 2005-01-10 00:00:[address] [facility] [place] MMR 2005-01-10 00:00:[address] [facility] [place] Pneumococcal 13 Conjugate, PCV13 (Prevnar 13) 2005-01-10 00:00:[address] [facility] [place] Polio (IPV/OPV) 2005-01-10 00:00:[address] [facility] [place] DTaP, Unspecified Formulation 2005-01-10 00:00:[address] [facility] [place] HEPA,NOS 2005-01-10 00:00:[address] [facility] [place] Hib-HbOC 2005-01-10 00:00:[address] [facility] [place] IPV 2005-01-10 00:00:[address] [facility] [place] Pneumococcal 7 Conjugate, PCV7 (Prevnar7) 2005-01-10 00:00:[address] [facility] [place] DTAP 2005-01-10 00:00:[address] [facility] [place] HIB 4 Dose Schedule 2005-01-10 00:00:[address] [facility] [place] MMR 2005-01-10 00:00:[address] [facility] [place] Pneumococcal 13 Conjugate, PCV13 (Prevnar 13) 2005-01-10 00:00:[address] [facility] [place] Polio (IPV/OPV) 2005-01-10 00:00:[address] [facility] [place] DTaP, Unspecified Formulation 2005-01-10 00:00:[address] [facility] [place] HEPA,NOS 2005-01-10 00:00:[address] [facility] [place] Hib-HbOC 2005-01-10 00:00:[address] [facility] [place] IPV 2005-01-10 00:00:[address] [facility] [place] Pneumococcal 7 Conjugate, PCV7 (Prevnar7) 2005-01-10 00:00:[address] [facility] [place] DTAP 2005-01-10 00:00:[address] [facility] [place] HIB 4 Dose Schedule 2005-01-10 00:00:[address] [facility] [place] MMR 2005-01-10 00:00:[address] [facility] [place] Pneumococcal 13 Conjugate, PCV13 (Prevnar 13) 2005-01-10 00:00:[address] [facility] [place] Polio (IPV/OPV) 2005-01-10 00:00:[address] [facility] [place] DTaP, Unspecified Formulation 2005-01-10 00:00:[address] [facility] [place] HEPA,NOS 2005-01-10 00:00:[address] [facility] [place] Polio (IPV/OPV) 2005-01-10 00:00:[address] [facility] [place] Hib-HbOC 2005-01-10 00:00:[address] [facility] [place] IPV 2005-01-10 00:00:[address] [facility] [place] Pneumococcal 7 Conjugate, PCV7 (Prevnar7) 2005-01-10 00:00:[address] [facility] [place] DTAP 2005-01-10 00:00:[address] [facility] [place] HIB 4 Dose Schedule 2005-01-10 00:00:[address] [facility] [place] MMR 2005-01-10 00:00:[address] [facility] [place] Pneumococcal 13 Conjugate, PCV13 (Prevnar 13) 2005-01-10 00:00:[address] [facility] [place] Polio (IPV/OPV) 2005-01-10 00:00:[address] [facility] [place] DTAP 2005-01-10 00:00:[address] [facility] [place] DTaP, Unspecified Formulation 2005-01-10 00:00:[address] [facility] [place] HEPA,NOS 2005-01-10 00:00:[address] [facility] [place] Hib-HbOC 2005-01-10 00:00:[address] [facility] [place] IPV 2005-01-10 00:00:[address] [facility] [place] Pneumococcal 7 Conjugate, PCV7 (Prevnar7) 2005-01-10 00:00:[address] [facility] [place] DTAP 2005-01-10 00:00:[address] [facility] [place] HIB 4 Dose Schedule 2005-01-10 00:00:[address] [facility] [place] HIB 4 Dose Schedule 2005-01-10 00:00:[address] [facility] [place] MMR 2005-01-10 00:00:[address] [facility] [place] Pneumococcal 13 Conjugate, PCV13 (Prevnar 13) 2005-01-10 00:00:[address] [facility] [place] Polio (IPV/OPV) 2005-01-10 00:00:[address] [facility] [place] DTaP, Unspecified Formulation 2005-01-10 00:00:[address] [facility] [place] HEPA,NOS 2005-01-10 00:00:[address] [facility] [place] Hib-HbOC 2005-01-10 00:00:[address] [facility] [place] IPV 2005-01-10 00:00:[address] [facility] [place] Pneumococcal 7 Conjugate, PCV7 (Prevnar7) 2005-01-10 00:00:[address] [facility] [place] DTAP 2005-01-10 00:00:[address] [facility] [place] HIB 4 Dose Schedule 2005-01-10 00:00:[address] [facility] [place] MMR 2005-01-10 00:00:[address] [facility] [place] Pneumococcal 13 Conjugate, PCV13 (Prevnar 13) 2005-01-10 00:00:[address] [facility] [place] Polio (IPV/OPV) 2005-01-10 00:00:[address] [facility] [place] MMR 2005-01-10 00:00:[address] [facility] [place] DTaP, Unspecified Formulation 2005-01-10 00:00:[address] [facility] [place] HEPA,NOS 2005-01-10 00:00:[address] [facility] [place] Pneumococcal 13 Conjugate, PCV13 (Prevnar 13) 2005-01-10 00:00:[address] [facility] [place] Hib-HbOC 2005-01-10 00:00:[address] [facility] [place] IPV 2005-01-10 00:00:[address] [facility] [place] Pneumococcal 7 Conjugate, PCV7 (Prevnar7) 2005-01-10 00:00:[address] [facility] [place] Polio (IPV/OPV) 2005-01-10 00:00:[address] [facility] [place] DTAP 2005-01-10 00:00:[address] [facility] [place] HIB 4 Dose Schedule 2005-01-10 00:00:[address] [facility] [place] MMR 2005-01-10 00:00:[address] [facility] [place] Pneumococcal 13 Conjugate, PCV13 (Prevnar 13) 2005-01-10 00:00:[address] [facility] [place] Polio (IPV/OPV) 2005-01-10 00:00:[address] [facility] [place] DTaP, Unspecified Formulation 2005-01-10 00:00:[address] [facility] [place] HEPA,NOS 2005-01-10 00:00:[address] [facility] [place] Hib-HbOC 2005-01-10 00:00:[address] [facility] [place] IPV 2005-01-10 00:00:[address] [facility] [place] Pneumococcal 7 Conjugate, PCV7 (Prevnar7) 2005-01-10 00:00:[address] [facility] [place] DTAP 2005-01-10 00:00:[address] [facility] [place] HIB 4 Dose Schedule 2005-01-10 00:00:[address] [facility] [place] MMR 2005-01-10 00:00:[address] [facility] [place] Pneumococcal 13 Conjugate, PCV13 (Prevnar 13) 2005-01-10 00:00:[address] [facility] [place] Polio (IPV/OPV) 2005-01-10 00:00:[address] [facility] [place] DTaP, Unspecified Formulation 2005-01-10 00:00:[address] [facility] [place] HEPA,NOS 2005-01-10 00:00:[address] [facility] [place] Hib-HbOC 2005-01-10 00:00:[address] [facility] [place] IPV 2005-01-10 00:00:[address] [facility] [place] Pneumococcal 7 Conjugate, PCV7 (Prevnar7) 2005-01-10 00:00:[address] [facility] [place] DTAP 2005-01-10 00:00:[address] [facility] [place] HIB 4 Dose Schedule 2005-01-10 00:00:[address] [facility] [place] MMR 2005-01-10 00:00:[address] [facility] [place] Pneumococcal 13 Conjugate, PCV13 (Prevnar 13) 2005-01-10 00:00:[address] [facility] [place] Polio (IPV/OPV) 2005-01-10 00:00:[address] [facility] [place] DTaP, Unspecified Formulation 2005-01-10 00:00:[address] [facility] [place] HEPA,NOS 2005-01-10 00:00:[address] [facility] [place] Hib-HbOC 2005-01-10 00:00:[address] [facility] [place] IPV 2005-01-10 00:00:[address] [facility] [place] Pneumococcal 7 Conjugate, PCV7 (Prevnar7) 2005-01-10 00:00:[address] [facility] [place] DTAP 2005-01-10 00:00:[address] [facility] [place] HIB 4 Dose Schedule 2005-01-10 00:00:[address] [facility] [place] MMR 2005-01-10 00:00:[address] [facility] [place] Pneumococcal 13 Conjugate, PCV13 (Prevnar 13) 2005-01-10 00:00:[address] [facility] [place] Polio (IPV/OPV) 2005-01-10 00:00:[address] [facility] [place] DTaP, Unspecified Formulation 2005-01-10 00:00:[address] [facility] [place] HEPA,NOS 2005-01-10 00:00:[address] [facility] [place] Hib-HbOC 2005-01-10 00:00:[address] [facility] [place] IPV 2005-01-10 00:00:[address] [facility] [place] Pneumococcal 7 Conjugate, PCV7 (Prevnar7) 2005-01-10 00:00:[address] [facility] [place] DTAP 2005-01-10 00:00:[address] [facility] [place] HIB 4 Dose Schedule 2005-01-10 00:00:[address] [facility] [place] MMR 2005-01-10 00:00:[address] [facility] [place] Pneumococcal 13 Conjugate, PCV13 (Prevnar 13) 2005-01-10 00:00:[address] [facility] [place] Polio (IPV/OPV) 2005-01-10 00:00:[address] [facility] [place] DTaP, Unspecified Formulation 2005-01-10 00:00:[address] [facility] [place] HEPA,NOS 2005-01-10 00:00:[address] [facility] [place] Hib-HbOC 2005-01-10 00:00:[address] [facility] [place] IPV 2005-01-10 00:00:[address] [facility] [place] Pneumococcal 7 Conjugate, PCV7 (Prevnar7) 2005-01-10 00:00:[address] [facility] [place] DTAP 2005-01-10 00:00:[address] [facility] [place] HIB 4 Dose Schedule 2005-01-10 00:00:[address] [facility] [place] MMR 2005-01-10 00:00:[address] [facility] [place] Pneumococcal 13 Conjugate, PCV13 (Prevnar 13) 2005-01-10 00:00:[address] [facility] [place] Polio (IPV/OPV) 2005-01-10 00:00:[address] [facility] [place] DTaP, Unspecified Formulation 2005-01-10 00:00:[address] [facility] [place] HEPA,NOS 2005-01-10 00:00:[address] [facility] [place] Hib-HbOC 2005-01-10 00:00:[address] [facility] [place] IPV 2005-01-10 00:00:[address] [facility] [place] Pneumococcal 7 Conjugate, PCV7 (Prevnar7) 2005-01-10 00:00:[address] [facility] [place] DTAP 2005-01-10 00:00:[address] [facility] [place] HIB 4 Dose Schedule 2005-01-10 00:00:[address] [facility] [place] MMR 2005-01-10 00:00:[address] [facility] [place] Pneumococcal 13 Conjugate, PCV13 (Prevnar 13) 2005-01-10 00:00:[address] [facility] [place] Polio (IPV/OPV) 2005-01-10 00:00:[address] [facility] [place] DTaP, Unspecified Formulation 2005-01-10 00:00:[address] [facility] [place] HEPA,NOS 2005-01-10 00:00:[address] [facility] [place] Hib-HbOC 2005-01-10 00:00:[address] [facility] [place] IPV 2005-01-10 00:00:[address] [facility] [place] Pneumococcal 7 Conjugate, PCV7 (Prevnar7) 2005-01-10 00:00:[address] [facility] [place] DTAP 2005-01-10 00:00:[address] [facility] [place] HIB 4 Dose Schedule 2005-01-10 00:00:[address] [facility] [place] MMR 2005-01-10 00:00:[address] [facility] [place] Pneumococcal 13 Conjugate, PCV13 (Prevnar 13) 2005-01-10 00:00:[address] [facility] [place] Polio (IPV/OPV) 2005-01-10 00:00:[address] [facility] [place] DTaP, Unspecified Formulation 2005-01-10 00:00:[address] [facility] [place] HEPA,NOS 2005-01-10 00:00:[address] [facility] [place] Hib-HbOC 2005-01-10 00:00:[address] [facility] [place] IPV 2005-01-10 00:00:[address] [facility] [place] Pneumococcal 7 Conjugate, PCV7 (Prevnar7) 2005-01-10 00:00:[address] [facility] [place] DTAP 2005-01-10 00:00:[address] [facility] [place] HIB 4 Dose Schedule 2005-01-10 00:00:[address] [facility] [place] MMR 2005-01-10 00:00:[address] [facility] [place] Pneumococcal 13 Conjugate, PCV13 (Prevnar 13) 2005-01-10 00:00:[address] [facility] [place] Polio (IPV/OPV) 2005-01-10 00:00:[address] [facility] [place] DTaP, Unspecified Formulation 2005-01-10 00:00:[address] [facility] [place] HEPA,NOS 2005-01-10 00:00:[address] [facility] [place] Hib-HbOC 2005-01-10 00:00:[address] [facility] [place] IPV 2005-01-10 00:00:[address] [facility] [place] Pneumococcal 7 Conjugate, PCV7 (Prevnar7) 2005-01-10 00:00:[address] [facility] [place] DTAP 2005-01-10 00:00:[address] [facility] [place] HIB 4 Dose Schedule 2005-01-10 00:00:[address] [facility] [place] MMR 2005-01-10 00:00:[address] [facility] [place] Pneumococcal 13 Conjugate, PCV13 (Prevnar 13) 2005-01-10 00:00:[address] [facility] [place] Polio (IPV/OPV) 2005-01-10 00:00:[address] [facility] [place] DTaP, Unspecified Formulation 2005-01-10 00:00:[address] [facility] [place] HEPA,NOS 2005-01-10 00:00:[address] [facility] [place] Hib-HbOC 2005-01-10 00:00:[address] [facility] [place] IPV 2005-01-10 00:00:[address] [facility] [place] Pneumococcal 7 Conjugate, PCV7 (Prevnar7) 2005-01-10 00:00:[address] [facility] [place] DTAP 2005-01-10 00:00:[address] [facility] [place] HIB 4 Dose Schedule 2005-01-10 00:00:[address] [facility] [place] MMR 2005-01-10 00:00:[address] [facility] [place] Pneumococcal 13 Conjugate, PCV13 (Prevnar 13) 2005-01-10 00:00:[address] [facility] [place] Polio (IPV/OPV) 2005-01-10 00:00:[address] [facility] [place] DTaP, Unspecified Formulation 2005-01-10 00:00:[address] [facility] [place] HEPA,NOS 2005-01-10 00:00:[address] [facility] [place] Hib-HbOC 2005-01-10 00:00:[address] [facility] [place] IPV 2005-01-10 00:00:[address] [facility] [place] Pneumococcal 7 Conjugate, PCV7 (Prevnar7) 2005-01-10 00:00:[address] [facility] [place] DTAP 2005-01-10 00:00:[address] [facility] [place] HIB 4 Dose Schedule 2005-01-10 00:00:[address] [facility] [place] MMR 2005-01-10 00:00:[address] [facility] [place] Pneumococcal 13 Conjugate, PCV13 (Prevnar 13) 2005-01-10 00:00:[address] [facility] [place] Polio (IPV/OPV) 2005-01-10 00:00:[address] [facility] [place] DTaP, Unspecified Formulation 2005-01-10 00:00:[address] [facility] [place] HEPA,NOS 2005-01-10 00:00:[address] [facility] [place] Hib-HbOC 2005-01-10 00:00:[address] [facility] [place] IPV 2005-01-10 00:00:[address] [facility] [place] Pneumococcal 7 Conjugate, PCV7 (Prevnar7) 2005-01-10 00:00:[address] [facility] [place] DTAP 2005-01-10 00:00:[address] [facility] [place] HIB 4 Dose Schedule 2005-01-10 00:00:[address] [facility] [place] MMR 2005-01-10 00:00:[address] [facility] [place] Pneumococcal 13 Conjugate, PCV13 (Prevnar 13) 2005-01-10 00:00:[address] [facility] [place] Polio (IPV/OPV) 2005-01-10 00:00:[address] [facility] [place] DTaP, Unspecified Formulation 2005-01-10 00:00:[address] [facility] [place] HEPA,NOS 2005-01-10 00:00:[address] [facility] [place] Hib-HbOC 2005-01-10 00:00:[address] [facility] [place] IPV 2005-01-10 00:00:[address] [facility] [place] Pneumococcal 7 Conjugate, PCV7 (Prevnar7) 2005-01-10 00:00:[address] [facility] [place] DTAP 2005-01-10 00:00:[address] [facility] [place] HIB 4 Dose Schedule 2005-01-10 00:00:[address] [facility] [place] MMR 2005-01-10 00:00:[address] [facility] [place] Pneumococcal 13 Conjugate, PCV13 (Prevnar 13) 2005-01-10 00:00:[address] [facility] [place] Polio (IPV/OPV) 2005-01-10 00:00:[address] [facility] [place] DTaP, Unspecified Formulation 2005-01-10 00:00:[address] [facility] [place] HEPA,NOS 2005-01-10 00:00:[address] [facility] [place] Hib-HbOC 2005-01-10 00:00:[address] [facility] [place] IPV 2005-01-10 00:00:[address] [facility] [place] Pneumococcal 7 Conjugate, PCV7 (Prevnar7) 2005-01-10 00:00:[address] [facility] [place] DTAP 2005-01-10 00:00:[address] [facility] [place] HIB 4 Dose Schedule 2005-01-10 00:00:[address] [facility] [place] MMR 2005-01-10 00:00:[address] [facility] [place] Pneumococcal 13 Conjugate, PCV13 (Prevnar 13) 2005-01-10 00:00:[address] [facility] [place] Polio (IPV/OPV) 2005-01-10 00:00:[address] [facility] [place] DTaP, Unspecified Formulation 2005-01-10 00:00:[address] [facility] [place] HEPA,NOS 2005-01-10 00:00:[address] [facility] [place] Hib-HbOC 2005-01-10 00:00:[address] [facility] [place] IPV 2005-01-10 00:00:[address] [facility] [place] Pneumococcal 7 Conjugate, PCV7 (Prevnar7) 2005-01-10 00:00:[address] [facility] [place] DTAP 2005-01-10 00:00:[address] [facility] [place] HIB 4 Dose Schedule 2005-01-10 00:00:[address] [facility] [place] MMR 2005-01-10 00:00:[address] [facility] [place] Pneumococcal 13 Conjugate, PCV13 (Prevnar 13) 2005-01-10 00:00:[address] [facility] [place] Polio (IPV/OPV) 2005-01-10 00:00:[address] [facility] [place] DTaP, Unspecified Formulation 2005-01-10 00:00:[address] [facility] [place] HEPA,NOS 2005-01-10 00:00:[address] [facility] [place] Hib-HbOC 2005-01-10 00:00:[address] [facility] [place] IPV 2005-01-10 00:00:[address] [facility] [place] Pneumococcal 7 Conjugate, PCV7 (Prevnar7) 2005-01-10 00:00:[address] [facility] [place] DTAP 2005-01-10 00:00:[address] [facility] [place] DTAP 2005-01-10 00:00:[address] [facility] [place] HIB 4 Dose Schedule 2005-01-10 00:00:[address] [facility] [place] DTAP 2005-01-10 00:00:[address] [facility] [place] HIB 4 Dose Schedule 2005-01-10 00:00:[address] [facility] [place] MMR 2005-01-10 00:00:[address] [facility] [place] Pneumococcal 13 Conjugate, PCV13 (Prevnar 13) 2005-01-10 00:00:[address] [facility] [place] Polio (IPV/OPV) 2005-01-10 00:00:[address] [facility] [place] DTaP, Unspecified Formulation 2005-01-10 00:00:[address] [facility] [place] HEPA,NOS 2005-01-10 00:00:[address] [facility] [place] Hib-HbOC 2005-01-10 00:00:[address] [facility] [place] IPV 2005-01-10 00:00:[address] [facility] [place] Pneumococcal 7 Conjugate, PCV7 (Prevnar7) 2005-01-10 00:00:[address] [facility] [place] MMR 2005-01-10 00:00:[address] [facility] [place] Pneumococcal 13 Conjugate, PCV13 (Prevnar 13) 2005-01-10 00:00:[address] [facility] [place] Polio (IPV/OPV) 2005-01-10 00:00:[address] [facility] [place] HIB 4 Dose Schedule 2005-01-10 00:00:[address] [facility] [place] DTAP 2005-01-10 00:00:[address] [facility] [place] HIB 4 Dose Schedule 2005-01-10 00:00:[address] [facility] [place] MMR 2005-01-10 00:00:[address] [facility] [place] Pneumococcal 13 Conjugate, PCV13 (Prevnar 13) 2005-01-10 00:00:[address] [facility] [place] Polio (IPV/OPV) 2005-01-10 00:00:[address] [facility] [place] DTAP 2005-01-10 00:00:[address] [facility] [place] HIB 4 Dose Schedule 2005-01-10 00:00:[address] [facility] [place] MMR 2005-01-10 00:00:[address] [facility] [place] Pneumococcal 13 Conjugate, PCV13 (Prevnar 13) 2005-01-10 00:00:[address] [facility] [place] Polio (IPV/OPV) 2005-01-10 00:00:[address] [facility] [place] MMR 2005-01-10 00:00:[address] [facility] [place] DTAP 2005-01-10 00:00:[address] [facility] [place] HIB 4 Dose Schedule 2005-01-10 00:00:[address] [facility] [place] Pneumococcal 13 Conjugate, PCV13 (Prevnar 13) 2005-01-10 00:00:[address] [facility] [place] MMR 2005-01-10 00:00:[address] [facility] [place] Pneumococcal 13 Conjugate, PCV13 (Prevnar 13) 2005-01-10 00:00:[address] [facility] [place] Polio (IPV/OPV) 2005-01-10 00:00:[address] [facility] [place] DTAP 2005-01-10 00:00:[address] [facility] [place] HIB 4 Dose Schedule 2005-01-10 00:00:[address] [facility] [place] MMR 2005-01-10 00:00:[address] [facility] [place] Pneumococcal 13 Conjugate, PCV13 (Prevnar 13) 2005-01-10 00:00:[address] [facility] [place] Polio (IPV/OPV) 2005-01-10 00:00:[address] [facility] [place] DTAP 2005-01-10 00:00:[address] [facility] [place] HIB 4 Dose Schedule 2005-01-10 00:00:[address] [facility] [place] MMR 2005-01-10 00:00:[address] [facility] [place] Pneumococcal 13 Conjugate, PCV13 (Prevnar 13) 2005-01-10 00:00:[address] [facility] [place] Polio (IPV/OPV) 2005-01-10 00:00:[address] [facility] [place] DTAP 2005-01-10 00:00:[address] [facility] [place] HIB 4 Dose Schedule 2005-01-10 00:00:[address] [facility] [place] MMR 2005-01-10 00:00:[address] [facility] [place] Pneumococcal 13 Conjugate, PCV13 (Prevnar 13) 2005-01-10 00:00:[address] [facility] [place] Polio (IPV/OPV) 2005-01-10 00:00:[address] [facility] [place] DTAP 2005-01-10 00:00:[address] [facility] [place] HIB 4 Dose Schedule 2005-01-10 00:00:[address] [facility] [place] MMR 2005-01-10 00:00:[address] [facility] [place] Pneumococcal 13 Conjugate, PCV13 (Prevnar 13) 2005-01-10 00:00:[address] [facility] [place] Polio (IPV/OPV) 2005-01-10 00:00:[address] [facility] [place] DTAP 2005-01-10 00:00:[address] [facility] [place] HIB 4 Dose Schedule 2005-01-10 00:00:[address] [facility] [place] MMR 2005-01-10 00:00:[address] [facility] [place] Pneumococcal 13 Conjugate, PCV13 (Prevnar 13) 2005-01-10 00:00:[address] [facility] [place] Polio (IPV/OPV) 2005-01-10 00:00:[address] [facility] [place] DTAP 2005-01-10 00:00:[address] [facility] [place] HIB 4 Dose Schedule 2005-01-10 00:00:[address] [facility] [place] HEPATITIS A 2005-01-08 00:00:[address] [facility] [place] HEPATITIS A 2005-01-08 00:00:[address] [facility] [place] HEPATITIS A 2005-01-08 00:00:[address] [facility] [place] HEPATITIS A 2005-01-08 00:00:[address] [facility] [place] HEPATITIS A 2005-01-08 00:00:[address] [facility] [place] HEPATITIS A 2005-01-08 00:00:[address] [facility] [place] HEPATITIS A 2005-01-08 00:00:[address] [facility] [place] HEPATITIS A 2005-01-08 00:00:[address] [facility] [place] HEPATITIS A 2005-01-08 00:00:[address] [facility] [place] HEPATITIS A 2005-01-08 00:00:[address] [facility] [place] HEPATITIS A 2005-01-08 00:00:[address] [facility] [place] HEPATITIS A 2005-01-08 00:00:[address] [facility] [place] HEPATITIS A 2005-01-08 00:00:[address] [facility] [place] HEPATITIS A 2005-01-08 00:00:[address] [facility] [place] HEPATITIS A 2005-01-08 00:00:[address] [facility] [place] HEPATITIS A 2005-01-08 00:00:[address] [facility] [place] HEPATITIS A 2005-01-08 00:00:[address] [facility] [place] HEPATITIS A 2005-01-08 00:00:[address] [facility] [place] HEPATITIS A 2005-01-08 00:00:[address] [facility] [place] HEPATITIS A 2005-01-08 00:00:[address] [facility] [place] HEPATITIS A 2005-01-08 00:00:[address] [facility] [place] HEPATITIS A 2005-01-08 00:00:[address] [facility] [place] HEPATITIS A 2005-01-08 00:00:[address] [facility] [place] HEPATITIS A 2005-01-08 00:00:[address] [facility] [place] HEPATITIS A 2005-01-08 00:00:[address] [facility] [place] HEPATITIS A 2005-01-08 00:00:[address] [facility] [place] HEPATITIS A 2005-01-08 00:00:[address] [facility] [place] HEPATITIS A 2005-01-08 00:00:[address] [facility] [place] HEPATITIS A 2005-01-08 00:00:[address] [facility] [place] HEPATITIS A 2005-01-08 00:00:[address] [facility] [place] HEPATITIS A 2005-01-08 00:00:[address] [facility] [place] HEPATITIS A 2005-01-08 00:00:[address] [facility] [place] HEPATITIS A 2005-01-08 00:00:[address] [facility] [place] HEPATITIS A 2005-01-08 00:00:[address] [facility] [place] HEPATITIS A 2005-01-08 00:00:[address] [facility] [place] HEPATITIS A 2005-01-08 00:00:[address] [facility] [place] HEPATITIS A 2005-01-08 00:00:[address] [facility] [place] HEPA,NOS 2005-01-08 00:00:[address] [facility] [place] HEPATITIS A 2005-01-08 00:00:[address] [facility] [place] HEPA,NOS 2005-01-08 00:00:[address] [facility] [place] HEPATITIS A 2005-01-08 00:00:[address] [facility] [place] HEPA,NOS 2005-01-08 00:00:[address] [facility] [place] HEPATITIS A 2005-01-08 00:00:[address] [facility] [place] HEPA,NOS 2005-01-08 00:00:[address] [facility] [place] HEPATITIS A 2005-01-08 00:00:[address] [facility] [place] HEPA,NOS 2005-01-08 00:00:[address] [facility] [place] HEPATITIS A 2005-01-08 00:00:[address] [facility] [place] HEPA,NOS 2005-01-08 00:00:[address] [facility] [place] HEPATITIS A 2005-01-08 00:00:[address] [facility] [place] HEPATITIS A 2005-01-08 00:00:00 Completed [facility] HEPA,NOS 2005-01-08 00:00:[address] [facility] [place] HEPATITIS A 2005-01-08 00:00:[address] [facility] [place] HEPA,NOS 2005-01-08 00:00:[address] [facility] [place] HEPATITIS A 2005-01-08 00:00:00 Completed [facility] HEPA,NOS 2005-01-08 00:00:[address] [facility] [place] HEPATITIS A 2005-01-08 00:00:00 Completed [facility] HEPA,NOS 2005-01-08 00:00:[address] [facility] [place] HEPATITIS A 2005-01-08 00:00:00 Completed [facility] HEPA,NOS 2005-01-08 00:00:[address] [facility] [place] HEPATITIS A 2005-01-08 00:00:00 Completed [facility] HEPA,NOS 2005-01-08 00:00:[address] [facility] [place] HEPATITIS A 2005-01-08 00:00:[address] [facility] [place] HEPA,NOS 2005-01-08 00:00:[address] [facility] [place] HEPATITIS A 2005-01-08 00:00:[address] [facility] [place] HEPA,NOS 2005-01-08 00:00:[address] [facility] [place] HEPATITIS A 2005-01-08 00:00:[address] [facility] [place] HEPA,NOS 2005-01-08 00:00:[address] [facility] [place] HEPATITIS A 2005-01-08 00:00:00 Completed [facility] HEPA,NOS 2005-01-08 00:00:[address] [facility] [place] HEPATITIS A 2005-01-08 00:00:[address] [facility] [place] HEPA,NOS 2005-01-08 00:00:[address] [facility] [place] HEPATITIS A 2005-01-08 00:00:[address] [facility] [place] HEPA,NOS 2005-01-08 00:00:[address] [facility] [place] HEPATITIS A 2005-01-08 00:00:00 Completed [facility] HEPA,NOS 2005-01-08 00:00:[address] [facility] [place] HEPATITIS A 2005-01-08 00:00:00 Completed [facility] HEPA,NOS 2005-01-08 00:00:[address] [facility] [place] HEPATITIS A 2005-01-08 00:00:00 Completed [facility] HEPA,NOS 2005-01-08 00:00:[address] [facility] [place] HEPATITIS A 2005-01-08 00:00:00 Completed [facility] HEPA,NOS 2005-01-08 00:00:[address] [facility] [place] HEPATITIS A 2005-01-08 00:00:[address] [facility] [place] HEPA,NOS 2005-01-08 00:00:[address] [facility] [place] HEPATITIS A 2005-01-08 00:00:[address] [facility] [place] HEPA,NOS 2005-01-08 00:00:[address] [facility] [place] HEPATITIS A 2005-01-08 00:00:[address] [facility] [place] HEPATITIS A 2005-01-08 00:00:[address] [facility] [place] HEPA,NOS 2005-01-08 00:00:[address] [facility] [place] HEPATITIS A 2005-01-08 00:00:[address] [facility] [place] HEPATITIS A 2005-01-08 00:00:[address] [facility] [place] HEPATITIS A 2005-01-08 00:00:[address] [facility] [place] HEPATITIS A 2005-01-08 00:00:[address] [facility] [place] HEPATITIS A 2005-01-08 00:00:[address] [facility] [place] HEPATITIS A 2005-01-08 00:00:[address] [facility] [place] HEPATITIS A 2005-01-08 00:00:[address] [facility] [place] HEPATITIS A 2005-01-08 00:00:[address] [facility] [place] HEPATITIS A 2005-01-08 00:00:[address] [facility] [place] HEPATITIS A 2005-01-08 00:00:[address] [facility] [place] DTAP 2003-08-16 00:00:[address] [facility] [place] DTAP 2003-08-16 00:00:[address] [facility] [place] DTAP 2003-08-16 00:00:[address] [facility] [place] DTAP 2003-08-16 00:00:[address] [facility] [place] DTAP 2003-08-16 00:00:[address] [facility] [place] DTAP 2003-08-16 00:00:[address] [facility] [place] DTAP 2003-08-16 00:00:[address] [facility] [place] DTAP 2003-08-16 00:00:[address] [facility] [place] DTAP 2003-08-16 00:00:[address] [facility] [place] DTAP 2003-08-16 00:00:[address] [facility] [place] DTAP 2003-08-16 00:00:[address] [facility] [place] DTAP 2003-08-16 00:00:[address] [facility] [place] DTAP 2003-08-16 00:00:[address] [facility] [place] DTAP 2003-08-16 00:00:[address] [facility] [place] DTAP 2003-08-16 00:00:[address] [facility] [place] DTAP 2003-08-16 00:00:[address] [facility] [place] DTAP 2003-08-16 00:00:[address] [facility] [place] DTAP 2003-08-16 00:00:[address] [facility] [place] DTAP 2003-08-16 00:00:[address] [facility] [place] DTAP 2003-08-16 00:00:[address] [facility] [place] DTAP 2003-08-16 00:00:[address] [facility] [place] DTAP 2003-08-16 00:00:[address] [facility] [place] DTAP 2003-08-16 00:00:[address] [facility] [place] DTAP 2003-08-16 00:00:[address] [facility] [place] DTAP 2003-08-16 00:00:[address] [facility] [place] DTAP 2003-08-16 00:00:[address] [facility] [place] DTAP 2003-08-16 00:00:[address] [facility] [place] DTAP 2003-08-16 00:00:[address] [facility] [place] DTAP 2003-08-16 00:00:[address] [facility] [place] DTAP 2003-08-16 00:00:[address] [facility] [place] DTAP 2003-08-16 00:00:[address] [facility] [place] DTAP 2003-08-16 00:00:[address] [facility] [place] DTAP 2003-08-16 00:00:[address] [facility] [place] DTAP 2003-08-16 00:00:[address] [facility] [place] DTAP 2003-08-16 00:00:[address] [facility] [place] DTAP 2003-08-16 00:00:[address] [facility] [place] DTAP 2003-08-16 00:00:[address] [facility] [place] DTaP, Unspecified Formulation 2003-08-16 00:00:[address] [facility] [place] HIB 4 Dose Schedule 2003-08-16 00:00:[address] [facility] [place] DTAP 2003-08-16 00:00:[address] [facility] [place] DTaP, Unspecified Formulation 2003-08-16 00:00:[address] [facility] [place] HIB 4 Dose Schedule 2003-08-16 00:00:[address] [facility] [place] DTAP 2003-08-16 00:00:[address] [facility] [place] DTaP, Unspecified Formulation 2003-08-16 00:00:[address] [facility] [place] HIB 4 Dose Schedule 2003-08-16 00:00:[address] [facility] [place] DTAP 2003-08-16 00:00:[address] [facility] [place] DTaP, Unspecified Formulation 2003-08-16 00:00:[address] [facility] [place] HIB 4 Dose Schedule 2003-08-16 00:00:[address] [facility] [place] DTAP 2003-08-16 00:00:[address] [facility] [place] DTaP, Unspecified Formulation 2003-08-16 00:00:[address] [facility] [place] HIB 4 Dose Schedule 2003-08-16 00:00:[address] [facility] [place] DTAP 2003-08-16 00:00:[address] [facility] [place] DTAP 2003-08-16 00:00:[address] [facility] [place] DTaP, Unspecified Formulation 2003-08-16 00:00:[address] [facility] [place] HIB 4 Dose Schedule 2003-08-16 00:00:[address] [facility] [place] DTAP 2003-08-16 00:00:[address] [facility] [place] DTaP, Unspecified Formulation 2003-08-16 00:00:[address] [facility] [place] HIB 4 Dose Schedule 2003-08-16 00:00:[address] [facility] [place] DTAP 2003-08-16 00:00:[address] [facility] [place] DTaP, Unspecified Formulation 2003-08-16 00:00:[address] [facility] [place] HIB 4 Dose Schedule 2003-08-16 00:00:[address] [facility] [place] DTAP 2003-08-16 00:00:[address] [facility] [place] DTaP, Unspecified Formulation 2003-08-16 00:00:[address] [facility] [place] HIB 4 Dose Schedule 2003-08-16 00:00:[address] [facility] [place] DTAP 2003-08-16 00:00:[address] [facility] [place] DTaP, Unspecified Formulation 2003-08-16 00:00:[address] [facility] [place] HIB 4 Dose Schedule 2003-08-16 00:00:[address] [facility] [place] DTAP 2003-08-16 00:00:[address] [facility] [place] DTaP, Unspecified Formulation 2003-08-16 00:00:[address] [facility] [place] HIB 4 Dose Schedule 2003-08-16 00:00:[address] [facility] [place] DTAP 2003-08-16 00:00:[address] [facility] [place] DTaP, Unspecified Formulation 2003-08-16 00:00:[address] [facility] [place] HIB 4 Dose Schedule 2003-08-16 00:00:[address] [facility] [place] DTAP 2003-08-16 00:00:[address] [facility] [place] DTaP, Unspecified Formulation 2003-08-16 00:00:[address] [facility] [place] HIB 4 Dose Schedule 2003-08-16 00:00:[address] [facility] [place] DTAP 2003-08-16 00:00:[address] [facility] [place] DTaP, Unspecified Formulation 2003-08-16 00:00:[address] [facility] [place] HIB 4 Dose Schedule 2003-08-16 00:00:[address] [facility] [place] DTAP 2003-08-16 00:00:[address] [facility] [place] DTaP, Unspecified Formulation 2003-08-16 00:00:[address] [facility] [place] HIB 4 Dose Schedule 2003-08-16 00:00:[address] [facility] [place] DTAP 2003-08-16 00:00:[address] [facility] [place] DTaP, Unspecified Formulation 2003-08-16 00:00:[address] [facility] [place] HIB 4 Dose Schedule 2003-08-16 00:00:[address] [facility] [place] DTAP 2003-08-16 00:00:[address] [facility] [place] DTaP, Unspecified Formulation 2003-08-16 00:00:[address] [facility] [place] HIB 4 Dose Schedule 2003-08-16 00:00:[address] [facility] [place] DTAP 2003-08-16 00:00:[address] [facility] [place] DTaP, Unspecified Formulation 2003-08-16 00:00:[address] [facility] [place] HIB 4 Dose Schedule 2003-08-16 00:00:[address] [facility] [place] DTAP 2003-08-16 00:00:[address] [facility] [place] DTaP, Unspecified Formulation 2003-08-16 00:00:[address] [facility] [place] HIB 4 Dose Schedule 2003-08-16 00:00:[address] [facility] [place] DTAP 2003-08-16 00:00:[address] [facility] [place] DTaP, Unspecified Formulation 2003-08-16 00:00:[address] [facility] [place] HIB 4 Dose Schedule 2003-08-16 00:00:[address] [facility] [place] DTAP 2003-08-16 00:00:[address] [facility] [place] DTaP, Unspecified Formulation 2003-08-16 00:00:[address] [facility] [place] HIB 4 Dose Schedule 2003-08-16 00:00:[address] [facility] [place] DTAP 2003-08-16 00:00:[address] [facility] [place] DTaP, Unspecified Formulation 2003-08-16 00:00:[address] [facility] [place] HIB 4 Dose Schedule 2003-08-16 00:00:[address] [facility] [place] DTAP 2003-08-16 00:00:[address] [facility] [place] DTaP, Unspecified Formulation 2003-08-16 00:00:[address] [facility] [place] HIB 4 Dose Schedule 2003-08-16 00:00:[address] [facility] [place] DTAP 2003-08-16 00:00:[address] [facility] [place] DTaP, Unspecified Formulation 2003-08-16 00:00:[address] [facility] [place] HIB 4 Dose Schedule 2003-08-16 00:00:[address] [facility] [place] DTAP 2003-08-16 00:00:[address] [facility] [place] DTAP 2003-08-16 00:00:[address] [facility] [place] DTAP 2003-08-16 00:00:[address] [facility] [place] DTaP, Unspecified Formulation 2003-08-16 00:00:[address] [facility] [place] HIB 4 Dose Schedule 2003-08-16 00:00:[address] [facility] [place] DTAP 2003-08-16 00:00:[address] [facility] [place] DTAP 2003-08-16 00:00:[address] [facility] [place] DTAP 2003-08-16 00:00:[address] [facility] [place] DTAP 2003-08-16 00:00:[address] [facility] [place] DTAP 2003-08-16 00:00:[address] [facility] [place] DTAP 2003-08-16 00:00:[address] [facility] [place] DTAP 2003-08-16 00:00:[address] [facility] [place] DTAP 2003-08-16 00:00:[address] [facility] [place] DTAP 2003-08-16 00:00:[address] [facility] [place] HEPATITIS A 2003-01-10 00:00:[address] [facility] [place] HEPATITIS A 2003-01-10 00:00:[address] [facility] [place] HEPATITIS A 2003-01-10 00:00:[address] [facility] [place] HEPATITIS A 2003-01-10 00:00:[address] [facility] [place] HEPATITIS A 2003-01-10 00:00:[address] [facility] [place] HEPATITIS A 2003-01-10 00:00:[address] [facility] [place] HEPATITIS A 2003-01-10 00:00:[address] [facility] [place] HEPATITIS A 2003-01-10 00:00:[address] [facility] [place] HEPATITIS A 2003-01-10 00:00:[address] [facility] [place] HEPATITIS A 2003-01-10 00:00:[address] [facility] [place] HEPATITIS A 2003-01-10 00:00:[address] [facility] [place] HEPATITIS A 2003-01-10 00:00:[address] [facility] [place] HEPATITIS A 2003-01-10 00:00:[address] [facility] [place] HEPATITIS A 2003-01-10 00:00:[address] [facility] [place] HEPATITIS A 2003-01-10 00:00:[address] [facility] [place] HEPATITIS A 2003-01-10 00:00:[address] [facility] [place] HEPATITIS A 2003-01-10 00:00:[address] [facility] [place] HEPATITIS A 2003-01-10 00:00:[address] [facility] [place] HEPATITIS A 2003-01-10 00:00:[address] [facility] [place] HEPATITIS A 2003-01-10 00:00:[address] [facility] [place] HEPATITIS A 2003-01-10 00:00:[address] [facility] [place] HEPATITIS A 2003-01-10 00:00:[address] [facility] [place] HEPATITIS A 2003-01-10 00:00:[address] [facility] [place] HEPATITIS A 2003-01-10 00:00:[address] [facility] [place] HEPATITIS A 2003-01-10 00:00:[address] [facility] [place] HEPATITIS A 2003-01-10 00:00:[address] [facility] [place] HEPATITIS A 2003-01-10 00:00:[address] [facility] [place] HEPATITIS A 2003-01-10 00:00:[address] [facility] [place] HEPATITIS A 2003-01-10 00:00:[address] [facility] [place] HEPATITIS A 2003-01-10 00:00:[address] [facility] [place] HEPATITIS A 2003-01-10 00:00:[address] [facility] [place] HEPATITIS A 2003-01-10 00:00:[address] [facility] [place] HEPATITIS A 2003-01-10 00:00:[address] [facility] [place] HEPATITIS A 2003-01-10 00:00:[address] [facility] [place] HEPATITIS A 2003-01-10 00:00:[address] [facility] [place] HEPATITIS A 2003-01-10 00:00:[address] [facility] [place] HEPATITIS A 2003-01-10 00:00:[address] [facility] [place] HEPA,NOS 2003-01-10 00:00:[address] [facility] [place] HEPATITIS A 2003-01-10 00:00:[address] [facility] [place] HEPA,NOS 2003-01-10 00:00:[address] [facility] [place] HEPATITIS A 2003-01-10 00:00:[address] [facility] [place] HEPA,NOS 2003-01-10 00:00:[address] [facility] [place] HEPATITIS A 2003-01-10 00:00:[address] [facility] [place] HEPA,NOS 2003-01-10 00:00:[address] [facility] [place] HEPATITIS A 2003-01-10 00:00:[address] [facility] [place] HEPA,NOS 2003-01-10 00:00:[address] [facility] [place] HEPATITIS A 2003-01-10 00:00:00 Completed [facility] HEPA,NOS 2003-01-10 00:00:[address] [facility] [place] HEPATITIS A 2003-01-10 00:00:[address] [facility] [place] HEPATITIS A 2003-01-10 00:00:00 Completed [facility] HEPA,NOS 2003-01-10 00:00:[address] [facility] [place] HEPATITIS A 2003-01-10 00:00:00 Completed [facility] HEPA,NOS 2003-01-10 00:00:[address] [facility] [place] HEPATITIS A 2003-01-10 00:00:00 Completed [facility] HEPA,NOS 2003-01-10 00:00:[address] [facility] [place] HEPATITIS A 2003-01-10 00:00:00 Completed [facility] HEPA,NOS 2003-01-10 00:00:[address] [facility] [place] HEPATITIS A 2003-01-10 00:00:00 Completed [facility] HEPA,NOS 2003-01-10 00:00:[address] [facility] [place] HEPATITIS A 2003-01-10 00:00:00 Completed [facility] HEPA,NOS 2003-01-10 00:00:[address] [facility] [place] HEPATITIS A 2003-01-10 00:00:00 Completed [facility] HEPA,NOS 2003-01-10 00:00:[address] [facility] [place] HEPATITIS A 2003-01-10 00:00:00 Completed [facility] HEPA,NOS 2003-01-10 00:00:00 Completed [facility] HEPATITIS A 2003-01-10 00:00:00 Completed [facility] HEPA,NOS 2003-01-10 00:00:[address] [facility] [place] HEPATITIS A 2003-01-10 00:00:00 Completed [facility] HEPA,NOS 2003-01-10 00:00:[address] [facility] [place] HEPATITIS A 2003-01-10 00:00:00 Completed [facility] HEPA,NOS 2003-01-10 00:00:[address] [facility] [place] HEPATITIS A 2003-01-10 00:00:[address] [facility] [place] HEPA,NOS 2003-01-10 00:00:[address] [facility] [place] HEPATITIS A 2003-01-10 00:00:[address] [facility] [place] HEPA,NOS 2003-01-10 00:00:[address] [facility] [place] HEPATITIS A 2003-01-10 00:00:[address] [facility] [place] HEPA,NOS 2003-01-10 00:00:[address] [facility] [place] HEPATITIS A 2003-01-10 00:00:00 Completed [facility] HEPA,NOS 2003-01-10 00:00:[address] [facility] [place] HEPATITIS A 2003-01-10 00:00:[address] [facility] [place] HEPA,NOS 2003-01-10 00:00:[address] [facility] [place] HEPATITIS A 2003-01-10 00:00:[address] [facility] [place] HEPA,NOS 2003-01-10 00:00:[address] [facility] [place] HEPATITIS A 2003-01-10 00:00:[address] [facility] [place] HEPA,NOS 2003-01-10 00:00:[address] [facility] [place] HEPATITIS A 2003-01-10 00:00:[address] [facility] [place] HEPATITIS A 2003-01-10 00:00:[address] [facility] [place] HEPA,NOS 2003-01-10 00:00:[address] [facility] [place] HEPATITIS A 2003-01-10 00:00:[address] [facility] [place] HEPATITIS A 2003-01-10 00:00:[address] [facility] [place] HEPATITIS A 2003-01-10 00:00:[address] [facility] [place] HEPATITIS A 2003-01-10 00:00:[address] [facility] [place] HEPATITIS A 2003-01-10 00:00:[address] [facility] [place] HEPATITIS A 2003-01-10 00:00:[address] [facility] [place] HEPATITIS A 2003-01-10 00:00:[address] [facility] [place] HEPATITIS A 2003-01-10 00:00:[address] [facility] [place] HEPATITIS A 2003-01-10 00:00:[address] [facility] [place] HEPATITIS A 2003-01-10 00:00:[address] [facility] [place] DTAP 2002-05-17 00:00:[address] [facility] [place] MMR 2002-05-17 00:00:[address] [facility] [place] Polio (IPV/OPV) 2002-05-17 00:00:[address] [facility] [place] Varicella (varivax)(chicken pox) 2002-05-17 00:00:[address] [facility] [place] Polio (IPV/OPV) 2002-05-17 00:00:[address] [facility] [place] DTAP 2002-05-17 00:00:[address] [facility] [place] HIB 4 Dose Schedule 2002-05-17 00:00:[address] [facility] [place] MMR 2002-05-17 00:00:[address] [facility] [place] Polio (IPV/OPV) 2002-05-17 00:00:[address] [facility] [place] Varicella (varivax)(chicken pox) 2002-05-17 00:00:[address] [facility] [place] Varicella (varivax)(chicken pox) 2002-05-17 00:00:[address] [facility] [place] DTAP 2002-05-17 00:00:[address] [facility] [place] HIB 4 Dose Schedule 2002-05-17 00:00:[address] [facility] [place] MMR 2002-05-17 00:00:[address] [facility] [place] Polio (IPV/OPV) 2002-05-17 00:00:[address] [facility] [place] Varicella (varivax)(chicken pox) 2002-05-17 00:00:[address] [facility] [place] DTAP 2002-05-17 00:00:[address] [facility] [place] HIB 4 Dose Schedule 2002-05-17 00:00:[address] [facility] [place] MMR 2002-05-17 00:00:[address] [facility] [place] Polio (IPV/OPV) 2002-05-17 00:00:[address] [facility] [place] Varicella (varivax)(chicken pox) 2002-05-17 00:00:[address] [facility] [place] DTAP 2002-05-17 00:00:[address] [facility] [place] HIB 4 Dose Schedule 2002-05-17 00:00:[address] [facility] [place] MMR 2002-05-17 00:00:[address] [facility] [place] Polio (IPV/OPV) 2002-05-17 00:00:[address] [facility] [place] Varicella (varivax)(chicken pox) 2002-05-17 00:00:[address] [facility] [place] DTAP 2002-05-17 00:00:[address] [facility] [place] DTAP 2002-05-17 00:00:[address] [facility] [place] HIB 4 Dose Schedule 2002-05-17 00:00:[address] [facility] [place] MMR 2002-05-17 00:00:[address] [facility] [place] Polio (IPV/OPV) 2002-05-17 00:00:[address] [facility] [place] Varicella (varivax)(chicken pox) 2002-05-17 00:00:[address] [facility] [place] DTAP 2002-05-17 00:00:[address] [facility] [place] HIB 4 Dose Schedule 2002-05-17 00:00:[address] [facility] [place] HIB 4 Dose Schedule 2002-05-17 00:00:[address] [facility] [place] MMR 2002-05-17 00:00:[address] [facility] [place] Polio (IPV/OPV) 2002-05-17 00:00:[address] [facility] [place] Varicella (varivax)(chicken pox) 2002-05-17 00:00:[address] [facility] [place] DTAP 2002-05-17 00:00:[address] [facility] [place] HIB 4 Dose Schedule 2002-05-17 00:00:[address] [facility] [place] MMR 2002-05-17 00:00:[address] [facility] [place] Polio (IPV/OPV) 2002-05-17 00:00:[address] [facility] [place] Varicella (varivax)(chicken pox) 2002-05-17 00:00:[address] [facility] [place] DTAP 2002-05-17 00:00:[address] [facility] [place] HIB 4 Dose Schedule 2002-05-17 00:00:[address] [facility] [place] MMR 2002-05-17 00:00:[address] [facility] [place] MMR 2002-05-17 00:00:[address] [facility] [place] Polio (IPV/OPV) 2002-05-17 00:00:[address] [facility] [place] Varicella (varivax)(chicken pox) 2002-05-17 00:00:[address] [facility] [place] DTAP 2002-05-17 00:00:[address] [facility] [place] HIB 4 Dose Schedule 2002-05-17 00:00:[address] [facility] [place] MMR 2002-05-17 00:00:[address] [facility] [place] Polio (IPV/OPV) 2002-05-17 00:00:[address] [facility] [place] Polio (IPV/OPV) 2002-05-17 00:00:[address] [facility] [place] Varicella (varivax)(chicken pox) 2002-05-17 00:00:[address] [facility] [place] [place] Varicella (varivax)(chicken pox) 2002-05-17 00:00:[address] [facility] [place] DTAP 2002-05-17 00:00:[address] [facility] [place] HIB 4 Dose Schedule 2002-05-17 00:00:[address] [facility] [place] MMR 2002-05-17 00:00:[address] [facility] [place] Polio (IPV/OPV) 2002-05-17 00:00:[address] [facility] [place] Varicella (varivax)(chicken pox) 2002-05-17 00:00:[address] [facility] [place] DTAP 2002-05-17 00:00:[address] [facility] [place] HIB 4 Dose Schedule 2002-05-17 00:00:[address] [facility] [place] MMR 2002-05-17 00:00:[address] [facility] [place] Polio (IPV/OPV) 2002-05-17 00:00:[address] [facility] [place] Varicella (varivax)(chicken pox) 2002-05-17 00:00:[address] [facility] [place] DTAP 2002-05-17 00:00:[address] [facility] [place] HIB 4 Dose Schedule 2002-05-17 00:00:[address] [facility] [place] HIB 4 Dose Schedule 2002-05-17 00:00:[address] [facility] [place] DTAP 2002-05-17 00:00:[address] [facility] [place] HIB 4 Dose Schedule 2002-05-17 00:00:[address] [facility] [place] MMR 2002-05-17 00:00:[address] [facility] [place] Polio (IPV/OPV) 2002-05-17 00:00:[address] [facility] [place] Varicella (varivax)(chicken pox) 2002-05-17 00:00:[address] [facility] [place] DTAP 2002-05-17 00:00:[address] [facility] [place] HIB 4 Dose Schedule 2002-05-17 00:00:[address] [facility] [place] MMR 2002-05-17 00:00:[address] [facility] [place] Polio (IPV/OPV) 2002-05-17 00:00:[address] [facility] [place] Varicella (varivax)(chicken pox) 2002-05-17 00:00:[address] [facility] [place] MMR 2002-05-17 00:00:[address] [facility] [place] DTAP 2002-05-17 00:00:[address] [facility] [place] HIB 4 Dose Schedule 2002-05-17 00:00:[address] [facility] [place] MMR 2002-05-17 00:00:[address] [facility] [place] Polio (IPV/OPV) 2002-05-17 00:00:[address] [facility] [place] Polio (IPV/OPV) 2002-05-17 00:00:[address] [facility] [place] Varicella (varivax)(chicken pox) 2002-05-17 00:00:[address] [facility] [place] DTAP 2002-05-17 00:00:[address] [facility] [place] HIB 4 Dose Schedule 2002-05-17 00:00:[address] [facility] [place] MMR 2002-05-17 00:00:[address] [facility] [place] Varicella (varivax)(chicken pox) 2002-05-17 00:00:[address] [facility] [place] Polio (IPV/OPV) 2002-05-17 00:00:[address] [facility] [place] Varicella (varivax)(chicken pox) 2002-05-17 00:00:[address] [facility] [place] DTAP 2002-05-17 00:00:[address] [facility] [place] HIB 4 Dose Schedule 2002-05-17 00:00:[address] [facility] [place] MMR 2002-05-17 00:00:[address] [facility] [place] Polio (IPV/OPV) 2002-05-17 00:00:[address] [facility] [place] Varicella (varivax)(chicken pox) 2002-05-17 00:00:[address] [facility] [place] DTAP 2002-05-17 00:00:[address] [facility] [place] HIB 4 Dose Schedule 2002-05-17 00:00:[address] [facility] [place] MMR 2002-05-17 00:00:[address] [facility] [place] Polio (IPV/OPV) 2002-05-17 00:00:[address] [facility] [place] Varicella (varivax)(chicken pox) 2002-05-17 00:00:[address] [facility] [place] DTAP 2002-05-17 00:00:[address] [facility] [place] HIB 4 Dose Schedule 2002-05-17 00:00:[address] [facility] [place] MMR 2002-05-17 00:00:[address] [facility] [place] Polio (IPV/OPV) 2002-05-17 00:00:[address] [facility] [place] Varicella (varivax)(chicken pox) 2002-05-17 00:00:[address] [facility] [place] DTAP 2002-05-17 00:00:[address] [facility] [place] HIB 4 Dose Schedule 2002-05-17 00:00:[address] [facility] [place] MMR 2002-05-17 00:00:[address] [facility] [place] Polio (IPV/OPV) 2002-05-17 00:00:[address] [facility] [place] Varicella (varivax)(chicken pox) 2002-05-17 00:00:[address] [facility] [place] DTAP 2002-05-17 00:00:[address] [facility] [place] DTAP 2002-05-17 00:00:[address] [facility] [place] HIB 4 Dose Schedule 2002-05-17 00:00:[address] [facility] [place] MMR 2002-05-17 00:00:[address] [facility] [place] Polio (IPV/OPV) 2002-05-17 00:00:[address] [facility] [place] Varicella (varivax)(chicken pox) 2002-05-17 00:00:[address] [facility] [place] HIB 4 Dose Schedule 2002-05-17 00:00:[address] [facility] [place] DTAP 2002-05-17 00:00:[address] [facility] [place] HIB 4 Dose Schedule 2002-05-17 00:00:[address] [facility] [place] MMR 2002-05-17 00:00:[address] [facility] [place] Polio (IPV/OPV) 2002-05-17 00:00:[address] [facility] [place] Varicella (varivax)(chicken pox) 2002-05-17 00:00:[address] [facility] [place] DTAP 2002-05-17 00:00:[address] [facility] [place] HIB 4 Dose Schedule 2002-05-17 00:00:[address] [facility] [place] MMR 2002-05-17 00:00:[address] [facility] [place] Polio (IPV/OPV) 2002-05-17 00:00:[address] [facility] [place] Varicella (varivax)(chicken pox) 2002-05-17 00:00:[address] [facility] [place] MMR 2002-05-17 00:00:[address] [facility] [place] DTAP 2002-05-17 00:00:[address] [facility] [place] HIB 4 Dose Schedule 2002-05-17 00:00:[address] [facility] [place] MMR 2002-05-17 00:00:[address] [facility] [place] Polio (IPV/OPV) 2002-05-17 00:00:[address] [facility] [place] Varicella (varivax)(chicken pox) 2002-05-17 00:00:[address] [facility] [place] Polio (IPV/OPV) 2002-05-17 00:00:[address] [facility] [place] DTAP 2002-05-17 00:00:[address] [facility] [place] Varicella (varivax)(chicken pox) 2002-05-17 00:00:[address] [facility] [place] HIB 4 Dose Schedule 2002-05-17 00:00:[address] [facility] [place] MMR 2002-05-17 00:00:[address] [facility] [place] Polio (IPV/OPV) 2002-05-17 00:00:[address] [facility] [place] Varicella (varivax)(chicken pox) 2002-05-17 00:00:[address] [facility] [place] DTAP 2002-05-17 00:00:[address] [facility] [place] HIB 4 Dose Schedule 2002-05-17 00:00:[address] [facility] [place] MMR 2002-05-17 00:00:[address] [facility] [place] Polio (IPV/OPV) 2002-05-17 00:00:[address] [facility] [place] Varicella (varivax)(chicken pox) 2002-05-17 00:00:[address] [facility] [place] DTAP 2002-05-17 00:00:[address] [facility] [place] HIB 4 Dose Schedule 2002-05-17 00:00:[address] [facility] [place] MMR 2002-05-17 00:00:[address] [facility] [place] Polio (IPV/OPV) 2002-05-17 00:00:[address] [facility] [place] Varicella (varivax)(chicken pox) 2002-05-17 00:00:[address] [facility] [place] DTAP 2002-05-17 00:00:[address] [facility] [place] HIB 4 Dose Schedule 2002-05-17 00:00:[address] [facility] [place] MMR 2002-05-17 00:00:[address] [facility] [place] Polio (IPV/OPV) 2002-05-17 00:00:[address] [facility] [place] MMR 2002-05-17 00:00:[address] [facility] [place] Varicella (varivax)(chicken pox) 2002-05-17 00:00:[address] [facility] [place] DTAP 2002-05-17 00:00:[address] [facility] [place] HIB 4 Dose Schedule 2002-05-17 00:00:[address] [facility] [place] MMR 2002-05-17 00:00:[address] [facility] [place] Polio (IPV/OPV) 2002-05-17 00:00:[address] [facility] [place] DTAP 2002-05-17 00:00:[address] [facility] [place] Varicella (varivax)(chicken pox) 2002-05-17 00:00:[address] [facility] [place] DTAP 2002-05-17 00:00:[address] [facility] [place] HIB 4 Dose Schedule 2002-05-17 00:00:[address] [facility] [place] MMR 2002-05-17 00:00:[address] [facility] [place] Polio (IPV/OPV) 2002-05-17 00:00:[address] [facility] [place] Varicella (varivax)(chicken pox) 2002-05-17 00:00:[address] [facility] [place] HIB 4 Dose Schedule 2002-05-17 00:00:[address] [facility] [place] DTAP 2002-05-17 00:00:[address] [facility] [place] HIB 4 Dose Schedule 2002-05-17 00:00:[address] [facility] [place] MMR 2002-05-17 00:00:[address] [facility] [place] Polio (IPV/OPV) 2002-05-17 00:00:[address] [facility] [place] Varicella (varivax)(chicken pox) 2002-05-17 00:00:[address] [facility] [place] DTAP 2002-05-17 00:00:[address] [facility] [place] HIB 4 Dose Schedule 2002-05-17 00:00:[address] [facility] [place] MMR 2002-05-17 00:00:[address] [facility] [place] Polio (IPV/OPV) 2002-05-17 00:00:[address] [facility] [place] MMR 2002-05-17 00:00:[address] [facility] [place] Varicella (varivax)(chicken pox) 2002-05-17 00:00:[address] [facility] [place] DTAP 2002-05-17 00:00:[address] [facility] [place] HIB 4 Dose Schedule 2002-05-17 00:00:[address] [facility] [place] Polio (IPV/OPV) 2002-05-17 00:00:[address] [facility] [place] MMR 2002-05-17 00:00:[address] [facility] [place] Polio (IPV/OPV) 2002-05-17 00:00:[address] [facility] [place] Varicella (varivax)(chicken pox) 2002-05-17 00:00:[address] [facility] [place] DTaP, Unspecified Formulation 2002-05-17 00:00:[address] [facility] [place] Varicella (varivax)(chicken pox) 2002-05-17 00:00:[address] [facility] [place] IPV 2002-05-17 00:00:[address] [facility] [place] DTAP 2002-05-17 00:00:[address] [facility] [place] HIB 4 Dose Schedule 2002-05-17 00:00:[address] [facility] [place] MMR 2002-05-17 00:00:[address] [facility] [place] Polio (IPV/OPV) 2002-05-17 00:00:[address] [facility] [place] Varicella (varivax)(chicken pox) 2002-05-17 00:00:[address] [facility] [place] DTaP, Unspecified Formulation 2002-05-17 00:00:[address] [facility] [place] IPV 2002-05-17 00:00:[address] [facility] [place] DTAP 2002-05-17 00:00:[address] [facility] [place] HIB 4 Dose Schedule 2002-05-17 00:00:[address] [facility] [place] MMR 2002-05-17 00:00:[address] [facility] [place] Polio (IPV/OPV) 2002-05-17 00:00:[address] [facility] [place] Varicella (varivax)(chicken pox) 2002-05-17 00:00:[address] [facility] [place] DTaP, Unspecified Formulation 2002-05-17 00:00:[address] [facility] [place] IPV 2002-05-17 00:00:[address] [facility] [place] DTAP 2002-05-17 00:00:[address] [facility] [place] HIB 4 Dose Schedule 2002-05-17 00:00:[address] [facility] [place] MMR 2002-05-17 00:00:[address] [facility] [place] Polio (IPV/OPV) 2002-05-17 00:00:[address] [facility] [place] Varicella (varivax)(chicken pox) 2002-05-17 00:00:[address] [facility] [place] DTaP, Unspecified Formulation 2002-05-17 00:00:[address] [facility] [place] IPV 2002-05-17 00:00:[address] [facility] [place] Polio (IPV/OPV) 2002-05-17 00:00:[address] [facility] [place] DTAP 2002-05-17 00:00:[address] [facility] [place] HIB 4 Dose Schedule 2002-05-17 00:00:[address] [facility] [place] MMR 2002-05-17 00:00:[address] [facility] [place] Polio (IPV/OPV) 2002-05-17 00:00:[address] [facility] [place] Varicella (varivax)(chicken pox) 2002-05-17 00:00:[address] [facility] [place] DTaP, Unspecified Formulation 2002-05-17 00:00:[address] [facility] [place] IPV 2002-05-17 00:00:[address] [facility] [place] DTAP 2002-05-17 00:00:[address] [facility] [place] HIB 4 Dose Schedule 2002-05-17 00:00:[address] [facility] [place] DTAP 2002-05-17 00:00:[address] [facility] [place] MMR 2002-05-17 00:00:[address] [facility] [place] Polio (IPV/OPV) 2002-05-17 00:00:[address] [facility] [place] Varicella (varivax)(chicken pox) 2002-05-17 00:00:[address] [facility] [place] DTaP, Unspecified Formulation 2002-05-17 00:00:[address] [facility] [place] IPV 2002-05-17 00:00:[address] [facility] [place] HIB 4 Dose Schedule 2002-05-17 00:00:[address] [facility] [place] DTAP 2002-05-17 00:00:[address] [facility] [place] HIB 4 Dose Schedule 2002-05-17 00:00:[address] [facility] [place] MMR 2002-05-17 00:00:[address] [facility] [place] Polio (IPV/OPV) 2002-05-17 00:00:[address] [facility] [place] Varicella (varivax)(chicken pox) 2002-05-17 00:00:[address] [facility] [place] DTaP, Unspecified Formulation 2002-05-17 00:00:[address] [facility] [place] IPV 2002-05-17 00:00:[address] [facility] [place] DTAP 2002-05-17 00:00:[address] [facility] [place] HIB 4 Dose Schedule 2002-05-17 00:00:[address] [facility] [place] MMR 2002-05-17 00:00:[address] [facility] [place] MMR 2002-05-17 00:00:[address] [facility] [place] Polio (IPV/OPV) 2002-05-17 00:00:[address] [facility] [place] Varicella (varivax)(chicken pox) 2002-05-17 00:00:[address] [facility] [place] DTaP, Unspecified Formulation 2002-05-17 00:00:[address] [facility] [place] IPV 2002-05-17 00:00:[address] [facility] [place] Varicella (varivax)(chicken pox) 2002-05-17 00:00:[address] [facility] [place] Polio (IPV/OPV) 2002-05-17 00:00:[address] [facility] [place] Varicella (varivax)(chicken pox) 2002-05-17 00:00:[address] [facility] [place] DTAP 2002-05-17 00:00:[address] [facility] [place] HIB 4 Dose Schedule 2002-05-17 00:00:[address] [facility] [place] MMR 2002-05-17 00:00:[address] [facility] [place] Polio (IPV/OPV) 2002-05-17 00:00:[address] [facility] [place] Varicella (varivax)(chicken pox) 2002-05-17 00:00:[address] [facility] [place] DTaP, Unspecified Formulation 2002-05-17 00:00:[address] [facility] [place] IPV 2002-05-17 00:00:[address] [facility] [place] DTAP 2002-05-17 00:00:[address] [facility] [place] HIB 4 Dose Schedule 2002-05-17 00:00:[address] [facility] [place] MMR 2002-05-17 00:00:[address] [facility] [place] Polio (IPV/OPV) 2002-05-17 00:00:[address] [facility] [place] Varicella (varivax)(chicken pox) 2002-05-17 00:00:[address] [facility] [place] DTaP, Unspecified Formulation 2002-05-17 00:00:[address] [facility] [place] IPV 2002-05-17 00:00:[address] [facility] [place] DTAP 2002-05-17 00:00:[address] [facility] [place] HIB 4 Dose Schedule 2002-05-17 00:00:[address] [facility] [place] MMR 2002-05-17 00:00:[address] [facility] [place] Polio (IPV/OPV) 2002-05-17 00:00:[address] [facility] [place] Varicella (varivax)(chicken pox) 2002-05-17 00:00:[address] [facility] [place] DTaP, Unspecified Formulation 2002-05-17 00:00:[address] [facility] [place] IPV 2002-05-17 00:00:[address] [facility] [place] DTAP 2002-05-17 00:00:[address] [facility] [place] HIB 4 Dose Schedule 2002-05-17 00:00:[address] [facility] [place] MMR 2002-05-17 00:00:[address] [facility] [place] Polio (IPV/OPV) 2002-05-17 00:00:[address] [facility] [place] Varicella (varivax)(chicken pox) 2002-05-17 00:00:[address] [facility] [place] DTaP, Unspecified Formulation 2002-05-17 00:00:[address] [facility] [place] IPV 2002-05-17 00:00:[address] [facility] [place] DTAP 2002-05-17 00:00:[address] [facility] [place] HIB 4 Dose Schedule 2002-05-17 00:00:[address] [facility] [place] MMR 2002-05-17 00:00:[address] [facility] [place] Polio (IPV/OPV) 2002-05-17 00:00:[address] [facility] [place] Varicella (varivax)(chicken pox) 2002-05-17 00:00:[address] [facility] [place] DTaP, Unspecified Formulation 2002-05-17 00:00:[address] [facility] [place] IPV 2002-05-17 00:00:[address] [facility] [place] DTAP 2002-05-17 00:00:[address] [facility] [place] HIB 4 Dose Schedule 2002-05-17 00:00:[address] [facility] [place] MMR 2002-05-17 00:00:[address] [facility] [place] Polio (IPV/OPV) 2002-05-17 00:00:[address] [facility] [place] Varicella (varivax)(chicken pox) 2002-05-17 00:00:[address] [facility] [place] DTaP, Unspecified Formulation 2002-05-17 00:00:[address] [facility] [place] IPV 2002-05-17 00:00:[address] [facility] [place] DTAP 2002-05-17 00:00:[address] [facility] [place] HIB 4 Dose Schedule 2002-05-17 00:00:[address] [facility] [place] MMR 2002-05-17 00:00:[address] [facility] [place] Polio (IPV/OPV) 2002-05-17 00:00:[address] [facility] [place] Varicella (varivax)(chicken pox) 2002-05-17 00:00:[address] [facility] [place] DTaP, Unspecified Formulation 2002-05-17 00:00:[address] [facility] [place] IPV 2002-05-17 00:00:[address] [facility] [place] DTAP 2002-05-17 00:00:[address] [facility] [place] HIB 4 Dose Schedule 2002-05-17 00:00:[address] [facility] [place] MMR 2002-05-17 00:00:[address] [facility] [place] Polio (IPV/OPV) 2002-05-17 00:00:[address] [facility] [place] Varicella (varivax)(chicken pox) 2002-05-17 00:00:[address] [facility] [place] DTaP, Unspecified Formulation 2002-05-17 00:00:[address] [facility] [place] IPV 2002-05-17 00:00:[address] [facility] [place] DTAP 2002-05-17 00:00:[address] [facility] [place] HIB 4 Dose Schedule 2002-05-17 00:00:[address] [facility] [place] MMR 2002-05-17 00:00:[address] [facility] [place] Polio (IPV/OPV) 2002-05-17 00:00:[address] [facility] [place] Varicella (varivax)(chicken pox) 2002-05-17 00:00:[address] [facility] [place] DTaP, Unspecified Formulation 2002-05-17 00:00:[address] [facility] [place] IPV 2002-05-17 00:00:[address] [facility] [place] DTAP 2002-05-17 00:00:[address] [facility] [place] HIB 4 Dose Schedule 2002-05-17 00:00:[address] [facility] [place] MMR 2002-05-17 00:00:[address] [facility] [place] Polio (IPV/OPV) 2002-05-17 00:00:[address] [facility] [place] Varicella (varivax)(chicken pox) 2002-05-17 00:00:[address] [facility] [place] DTaP, Unspecified Formulation 2002-05-17 00:00:[address] [facility] [place] IPV 2002-05-17 00:00:[address] [facility] [place] DTAP 2002-05-17 00:00:[address] [facility] [place] HIB 4 Dose Schedule 2002-05-17 00:00:[address] [facility] [place] MMR 2002-05-17 00:00:[address] [facility] [place] Polio (IPV/OPV) 2002-05-17 00:00:[address] [facility] [place] Varicella (varivax)(chicken pox) 2002-05-17 00:00:[address] [facility] [place] DTaP, Unspecified Formulation 2002-05-17 00:00:[address] [facility] [place] IPV 2002-05-17 00:00:[address] [facility] [place] DTAP 2002-05-17 00:00:[address] [facility] [place] HIB 4 Dose Schedule 2002-05-17 00:00:[address] [facility] [place] MMR 2002-05-17 00:00:[address] [facility] [place] Polio (IPV/OPV) 2002-05-17 00:00:[address] [facility] [place] Varicella (varivax)(chicken pox) 2002-05-17 00:00:[address] [facility] [place] DTaP, Unspecified Formulation 2002-05-17 00:00:[address] [facility] [place] IPV 2002-05-17 00:00:[address] [facility] [place] DTAP 2002-05-17 00:00:[address] [facility] [place] HIB 4 Dose Schedule 2002-05-17 00:00:[address] [facility] [place] MMR 2002-05-17 00:00:[address] [facility] [place] Polio (IPV/OPV) 2002-05-17 00:00:[address] [facility] [place] Varicella (varivax)(chicken pox) 2002-05-17 00:00:[address] [facility] [place] DTaP, Unspecified Formulation 2002-05-17 00:00:[address] [facility] [place] IPV 2002-05-17 00:00:[address] [facility] [place] DTAP 2002-05-17 00:00:[address] [facility] [place] HIB 4 Dose Schedule 2002-05-17 00:00:[address] [facility] [place] MMR 2002-05-17 00:00:[address] [facility] [place] Polio (IPV/OPV) 2002-05-17 00:00:[address] [facility] [place] Varicella (varivax)(chicken pox) 2002-05-17 00:00:[address] [facility] [place] DTaP, Unspecified Formulation 2002-05-17 00:00:[address] [facility] [place] IPV 2002-05-17 00:00:[address] [facility] [place] DTAP 2002-05-17 00:00:[address] [facility] [place] HIB 4 Dose Schedule 2002-05-17 00:00:[address] [facility] [place] MMR 2002-05-17 00:00:[address] [facility] [place] Polio (IPV/OPV) 2002-05-17 00:00:[address] [facility] [place] Varicella (varivax)(chicken pox) 2002-05-17 00:00:[address] [facility] [place] DTaP, Unspecified Formulation 2002-05-17 00:00:[address] [facility] [place] DTAP 2002-05-17 00:00:[address] [facility] [place] IPV 2002-05-17 00:00:[address] [facility] [place] DTAP 2002-05-17 00:00:[address] [facility] [place] HIB 4 Dose Schedule 2002-05-17 00:00:[address] [facility] [place] MMR 2002-05-17 00:00:[address] [facility] [place] Polio (IPV/OPV) 2002-05-17 00:00:[address] [facility] [place] Varicella (varivax)(chicken pox) 2002-05-17 00:00:[address] [facility] [place] DTaP, Unspecified Formulation 2002-05-17 00:00:[address] [facility] [place] IPV 2002-05-17 00:00:[address] [facility] [place] DTAP 2002-05-17 00:00:[address] [facility] [place] DTAP 2002-05-17 00:00:[address] [facility] [place] HIB 4 Dose Schedule 2002-05-17 00:00:[address] [facility] [place] HIB 4 Dose Schedule 2002-05-17 00:00:[address] [facility] [place] MMR 2002-05-17 00:00:[address] [facility] [place] Polio (IPV/OPV) 2002-05-17 00:00:[address] [facility] [place] Varicella (varivax)(chicken pox) 2002-05-17 00:00:[address] [facility] [place] DTaP, Unspecified Formulation 2002-05-17 00:00:[address] [facility] [place] IPV 2002-05-17 00:00:[address] [facility] [place] MMR 2002-05-17 00:00:[address] [facility] [place] Polio (IPV/OPV) 2002-05-17 00:00:[address] [facility] [place] Varicella (varivax)(chicken pox) 2002-05-17 00:00:[address] [facility] [place] HIB 4 Dose Schedule 2002-05-17 00:00:[address] [facility] [place] DTAP 2002-05-17 00:00:[address] [facility] [place] HIB 4 Dose Schedule 2002-05-17 00:00:[address] [facility] [place] MMR 2002-05-17 00:00:[address] [facility] [place] Polio (IPV/OPV) 2002-05-17 00:00:[address] [facility] [place] Varicella (varivax)(chicken pox) 2002-05-17 00:00:[address] [facility] [place] DTAP 2002-05-17 00:00:[address] [facility] [place] HIB 4 Dose Schedule 2002-05-17 00:00:[address] [facility] [place] MMR 2002-05-17 00:00:[address] [facility] [place] Polio (IPV/OPV) 2002-05-17 00:00:[address] [facility] [place] Varicella (varivax)(chicken pox) 2002-05-17 00:00:[address] [facility] [place] MMR 2002-05-17 00:00:[address] [facility] [place] DTAP 2002-05-17 00:00:[address] [facility] [place] HIB 4 Dose Schedule 2002-05-17 00:00:[address] [facility] [place] MMR 2002-05-17 00:00:[address] [facility] [place] Polio (IPV/OPV) 2002-05-17 00:00:[address] [facility] [place] Varicella (varivax)(chicken pox) 2002-05-17 00:00:[address] [facility] [place] DTAP 2002-05-17 00:00:[address] [facility] [place] HIB 4 Dose Schedule 2002-05-17 00:00:[address] [facility] [place] MMR 2002-05-17 00:00:[address] [facility] [place] Polio (IPV/OPV) 2002-05-17 00:00:[address] [facility] [place] Varicella (varivax)(chicken pox) 2002-05-17 00:00:[address] [facility] [place] DTAP 2002-05-17 00:00:[address] [facility] [place] HIB 4 Dose Schedule 2002-05-17 00:00:[address] [facility] [place] MMR 2002-05-17 00:00:[address] [facility] [place] Polio (IPV/OPV) 2002-05-17 00:00:[address] [facility] [place] Varicella (varivax)(chicken pox) 2002-05-17 00:00:[address] [facility] [place] DTAP 2002-05-17 00:00:[address] [facility] [place] HIB 4 Dose Schedule 2002-05-17 00:00:[address] [facility] [place] MMR 2002-05-17 00:00:[address] [facility] [place] Polio (IPV/OPV) 2002-05-17 00:00:[address] [facility] [place] Varicella (varivax)(chicken pox) 2002-05-17 00:00:[address] [facility] [place] DTAP 2002-05-17 00:00:[address] [facility] [place] HIB 4 Dose Schedule 2002-05-17 00:00:[address] [facility] [place] MMR 2002-05-17 00:00:[address] [facility] [place] Polio (IPV/OPV) 2002-05-17 00:00:[address] [facility] [place] Varicella (varivax)(chicken pox) 2002-05-17 00:00:[address] [facility] [place] DTAP 2002-05-17 00:00:[address] [facility] [place] HIB 4 Dose Schedule 2002-05-17 00:00:[address] [facility] [place] MMR 2002-05-17 00:00:[address] [facility] [place] Polio (IPV/OPV) 2002-05-17 00:00:[address] [facility] [place] Varicella (varivax)(chicken pox) 2002-05-17 00:00:[address] [facility] [place] DTAP 2002-05-17 00:00:[address] [facility] [place] HIB 4 Dose Schedule 2002-05-17 00:00:[address] [facility] [place] Hep B, Adol or Pedi Dosage 2001-04-22 00:00:[address] [facility] [place] Polio (IPV/OPV) 2001-04-22 00:00:[address] [facility] [place] Polio (IPV/OPV) 2001-04-22 00:00:[address] [facility] [place] DTAP 2001-04-22 00:00:[address] [facility] [place] HIB 4 Dose Schedule 2001-04-22 00:00:[address] [facility] [place] Hep B, Adol or Pedi Dosage 2001-04-22 00:00:[address] [facility] [place] Polio (IPV/OPV) 2001-04-22 00:00:[address] [facility] [place] DTAP 2001-04-22 00:00:[address] [facility] [place] HIB 4 Dose Schedule 2001-04-22 00:00:[address] [facility] [place] Hep B, Adol or Pedi Dosage 2001-04-22 00:00:[address] [facility] [place] Polio (IPV/OPV) 2001-04-22 00:00:[address] [facility] [place] DTAP 2001-04-22 00:00:[address] [facility] [place] HIB 4 Dose Schedule 2001-04-22 00:00:[address] [facility] [place] Hep B, Adol or Pedi Dosage 2001-04-22 00:00:[address] [facility] [place] Polio (IPV/OPV) 2001-04-22 00:00:[address] [facility] [place] DTAP 2001-04-22 00:00:[address] [facility] [place] HIB 4 Dose Schedule 2001-04-22 00:00:[address] [facility] [place] Hep B, Adol or Pedi Dosage 2001-04-22 00:00:[address] [facility] [place] Polio (IPV/OPV) 2001-04-22 00:00:[address] [facility] [place] DTAP 2001-04-22 00:00:[address] [facility] [place] DTAP 2001-04-22 00:00:[address] [facility] [place] HIB 4 Dose Schedule 2001-04-22 00:00:[address] [facility] [place] Hep B, Adol or Pedi Dosage 2001-04-22 00:00:[address] [facility] [place] Polio (IPV/OPV) 2001-04-22 00:00:[address] [facility] [place] HIB 4 Dose Schedule 2001-04-22 00:00:[address] [facility] [place] DTAP 2001-04-22 00:00:[address] [facility] [place] HIB 4 Dose Schedule 2001-04-22 00:00:[address] [facility] [place] Hep B, Adol or Pedi Dosage 2001-04-22 00:00:[address] [facility] [place] Polio (IPV/OPV) 2001-04-22 00:00:[address] [facility] [place] DTAP 2001-04-22 00:00:[address] [facility] [place] HIB 4 Dose Schedule 2001-04-22 00:00:[address] [facility] [place] Hep B, Adol or Pedi Dosage 2001-04-22 00:00:[address] [facility] [place] Polio (IPV/OPV) 2001-04-22 00:00:[address] [facility] [place] Hep B, Adol or Pedi Dosage 2001-04-22 00:00:[address] [facility] [place] DTAP 2001-04-22 00:00:[address] [facility] [place] HIB 4 Dose Schedule 2001-04-22 00:00:[address] [facility] [place] Hep B, Adol or Pedi Dosage 2001-04-22 00:00:[address] [facility] [place] Polio (IPV/OPV) 2001-04-22 00:00:[address] [facility] [place] DTAP 2001-04-22 00:00:[address] [facility] [place] HIB 4 Dose Schedule 2001-04-22 00:00:[address] [facility] [place] Polio (IPV/OPV) 2001-04-22 00:00:[address] [facility] [place] Hep B, Adol or Pedi Dosage 2001-04-22 00:00:[address] [facility] [place] Polio (IPV/OPV) 2001-04-22 00:00:[address] [facility] [place] DTAP 2001-04-22 00:00:[address] [facility] [place] HIB 4 Dose Schedule 2001-04-22 00:00:[address] [facility] [place] Hep B, Adol or Pedi Dosage 2001-04-22 00:00:[address] [facility] [place] Polio (IPV/OPV) 2001-04-22 00:00:[address] [facility] [place] HIB 4 Dose Schedule 2001-04-22 00:00:[address] [facility] [place] DTAP 2001-04-22 00:00:[address] [facility] [place] HIB 4 Dose Schedule 2001-04-22 00:00:[address] [facility] [place] Hep B, Adol or Pedi Dosage 2001-04-22 00:00:[address] [facility] [place] Polio (IPV/OPV) 2001-04-22 00:00:[address] [facility] [place] DTAP 2001-04-22 00:00:[address] [facility] [place] HIB 4 Dose Schedule 2001-04-22 00:00:[address] [facility] [place] DTAP 2001-04-22 00:00:[address] [facility] [place] HIB 4 Dose Schedule 2001-04-22 00:00:[address] [facility] [place] Hep B, Adol or Pedi Dosage 2001-04-22 00:00:[address] [facility] [place] Polio (IPV/OPV) 2001-04-22 00:00:[address] [facility] [place] DTAP 2001-04-22 00:00:[address] [facility] [place] HIB 4 Dose Schedule 2001-04-22 00:00:[address] [facility] [place] Hep B, Adol or Pedi Dosage 2001-04-22 00:00:[address] [facility] [place] Polio (IPV/OPV) 2001-04-22 00:00:[address] [facility] [place] Hep B, Adol or Pedi Dosage 2001-04-22 00:00:[address] [facility] [place] DTAP 2001-04-22 00:00:[address] [facility] [place] HIB 4 Dose Schedule 2001-04-22 00:00:[address] [facility] [place] Polio (IPV/OPV) 2001-04-22 00:00:[address] [facility] [place] Hep B, Adol or Pedi Dosage 2001-04-22 00:00:[address] [facility] [place] Polio (IPV/OPV) 2001-04-22 00:00:[address] [facility] [place] DTAP 2001-04-22 00:00:[address] [facility] [place] HIB 4 Dose Schedule 2001-04-22 00:00:[address] [facility] [place] Hep B, Adol or Pedi Dosage 2001-04-22 00:00:[address] [facility] [place] Polio (IPV/OPV) 2001-04-22 00:00:[address] [facility] [place] DTAP 2001-04-22 00:00:[address] [facility] [place] HIB 4 Dose Schedule 2001-04-22 00:00:[address] [facility] [place] Hep B, Adol or Pedi Dosage 2001-04-22 00:00:[address] [facility] [place] Polio (IPV/OPV) 2001-04-22 00:00:[address] [facility] [place] DTAP 2001-04-22 00:00:[address] [facility] [place] HIB 4 Dose Schedule 2001-04-22 00:00:[address] [facility] [place] Hep B, Adol or Pedi Dosage 2001-04-22 00:00:[address] [facility] [place] Polio (IPV/OPV) 2001-04-22 00:00:[address] [facility] [place] DTAP 2001-04-22 00:00:[address] [facility] [place] HIB 4 Dose Schedule 2001-04-22 00:00:[address] [facility] [place] Hep B, Adol or Pedi Dosage 2001-04-22 00:00:[address] [facility] [place] Polio (IPV/OPV) 2001-04-22 00:00:[address] [facility] [place] DTAP 2001-04-22 00:00:[address] [facility] [place] HIB 4 Dose Schedule 2001-04-22 00:00:[address] [facility] [place] Hep B, Adol or Pedi Dosage 2001-04-22 00:00:[address] [facility] [place] Polio (IPV/OPV) 2001-04-22 00:00:[address] [facility] [place] DTAP 2001-04-22 00:00:[address] [facility] [place] DTAP 2001-04-22 00:00:[address] [facility] [place] HIB 4 Dose Schedule 2001-04-22 00:00:[address] [facility] [place] Hep B, Adol or Pedi Dosage 2001-04-22 00:00:[address] [facility] [place] Polio (IPV/OPV) 2001-04-22 00:00:[address] [facility] [place] HIB 4 Dose Schedule 2001-04-22 00:00:[address] [facility] [place] DTAP 2001-04-22 00:00:[address] [facility] [place] HIB 4 Dose Schedule 2001-04-22 00:00:[address] [facility] [place] Hep B, Adol or Pedi Dosage 2001-04-22 00:00:[address] [facility] [place] Polio (IPV/OPV) 2001-04-22 00:00:[address] [facility] [place] DTAP 2001-04-22 00:00:[address] [facility] [place] HIB 4 Dose Schedule 2001-04-22 00:00:[address] [facility] [place] Hep B, Adol or Pedi Dosage 2001-04-22 00:00:[address] [facility] [place] Hep B, Adol or Pedi Dosage 2001-04-22 00:00:[address] [facility] [place] Polio (IPV/OPV) 2001-04-22 00:00:[address] [facility] [place] DTAP 2001-04-22 00:00:[address] [facility] [place] HIB 4 Dose Schedule 2001-04-22 00:00:[address] [facility] [place] Hep B, Adol or Pedi Dosage 2001-04-22 00:00:[address] [facility] [place] Hep B, Adol or Pedi Dosage 2001-04-22 00:00:[address] [facility] [place] Polio (IPV/OPV) 2001-04-22 00:00:[address] [facility] [place] Polio (IPV/OPV) 2001-04-22 00:00:[address] [facility] [place] DTAP 2001-04-22 00:00:[address] [facility] [place] HIB 4 Dose Schedule 2001-04-22 00:00:[address] [facility] [place] Hep B, Adol or Pedi Dosage 2001-04-22 00:00:[address] [facility] [place] Polio (IPV/OPV) 2001-04-22 00:00:[address] [facility] [place] DTAP 2001-04-22 00:00:[address] [facility] [place] HIB 4 Dose Schedule 2001-04-22 00:00:[address] [facility] [place] Hep B, Adol or Pedi Dosage 2001-04-22 00:00:[address] [facility] [place] Polio (IPV/OPV) 2001-04-22 00:00:[address] [facility] [place] DTAP 2001-04-22 00:00:[address] [facility] [place] HIB 4 Dose Schedule 2001-04-22 00:00:[address] [facility] [place] Hep B, Adol or Pedi Dosage 2001-04-22 00:00:[address] [facility] [place] Polio (IPV/OPV) 2001-04-22 00:00:[address] [facility] [place] DTAP 2001-04-22 00:00:[address] [facility] [place] HIB 4 Dose Schedule 2001-04-22 00:00:[address] [facility] [place] Hep B, Adol or Pedi Dosage 2001-04-22 00:00:[address] [facility] [place] Polio (IPV/OPV) 2001-04-22 00:00:[address] [facility] [place] DTAP 2001-04-22 00:00:[address] [facility] [place] HIB 4 Dose Schedule 2001-04-22 00:00:[address] [facility] [place] DTAP 2001-04-22 00:00:[address] [facility] [place] Hep B, Adol or Pedi Dosage 2001-04-22 00:00:[address] [facility] [place] [place] Pol[place] (IPV/OPV) 2001-04-22 00:00:[address] [facility] [place] DTAP 2001-04-22 00:00:[address] [facility] [place] HIB 4 Dose Schedule 2001-04-22 00:00:[address] [facility] [place] Hep B, Adol or Pedi Dosage 2001-04-22 00:00:[address] [facility] [place] HIB 4 Dose Schedule 2001-04-22 00:00:[address] [facility] [place] (IPV/OPV) 2001-04-22 00:00:[address] [facility] [place] DT[place] 2001-04-22 00:00:[address] [facility] [place] HIB 4 Dose Schedule 2001-04-22 00:00:[address] [facility] [place] Hep B, Adol or Pedi Dosage 2001-04-22 00:00:[address] [facility] [place] (IPV/OPV) 2001-04-22 00:00:[address] [facility] [place] 2001-04-22 00:00:[address] [facility] [place] Hep B, Adol or Pedi Dosage 2001-04-22 00:00:[address] [facility] [place] HIB 4 Dose Schedule 2001-04-22 00:00:[address] [facility] [place] Hep B, Adol or Pedi Dosage 2001-04-22 00:00:[address] [facility] [place] (IPV/OPV) 2001-04-22 00:00:[address] [facility] [place] (IPV/OPV) 2001-04-22 00:00:[address] [facility] [place] 2001-04-22 00:00:[address] [facility] [place] HIB 4 Dose Schedule 2001-04-22 00:00:[address] [facility] [place] Hep B, Adol or Pedi Dosage 2001-04-22 00:00:[address] [facility] [place] (IPV/OPV) 2001-04-22 00:00:[address] [facility] [place] DTaP, Unspecified Formulation 2001-04-22 00:00:[address] [facility] [place] IPV 2001-04-22 00:00:[address] [facility] [place] 2001-04-22 00:00:[address] [facility] [place] HIB 4 Dose Schedule 2001-04-22 00:00:[address] [facility] [place] Hep B, Adol or Pedi Dosage 2001-04-22 00:00:[address] [facility] [place] (IPV/OPV) 2001-04-22 00:00:[address] [facility] [place] DTaP, Unspecified Formulation 2001-04-22 00:00:[address] [facility] [place] IPV 2001-04-22 00:00:[address] [facility] [place] 2001-04-22 00:00:[address] [facility] [place] HIB 4 Dose Schedule 2001-04-22 00:00:[address] [facility] [place] Hep B, Adol or Pedi Dosage 2001-04-22 00:00:[address] [facility] [place] (IPV/OPV) 2001-04-22 00:00:[address] [facility] [place] DTaP, Unspecified Formulation 2001-04-22 00:00:[address] [facility] [place] (IPV/OPV) 2001-04-22 00:00:[address] [facility] [place] IP[place] 2001-04-22 00:00:[address] [facility] [place] 2001-04-22 00:00:[address] [facility] [place] HIB 4 Dose Schedule 2001-04-22 00:00:[address] [facility] [place] Hep B, Adol or Pedi Dosage 2001-04-22 00:00:[address] [facility] [place] (IPV/OPV) 2001-04-22 00:00:[address] [facility] [place] DTaP, Unspecified Formulation 2001-04-22 00:00:[address] [facility] [place] IPV 2001-04-22 00:00:[address] [facility] [place] 2001-04-22 00:00:[address] [facility] [place] HIB 4 Dose Schedule 2001-04-22 00:00:[address] [facility] [place] Hep B, Adol or Pedi Dosage 2001-04-22 00:00:[address] [facility] [place] (IPV/OPV) 2001-04-22 00:00:[address] [facility] [place] DTaP, Unspecified Formulation 2001-04-22 00:00:[address] [facility] [place] IPV 2001-04-22 00:00:[address] [facility] [place] DT[place] 2001-04-22 00:00:[address] [facility] [place] 2001-04-22 00:00:[address] [facility] [place] HIB 4 Dose Schedule 2001-04-22 00:00:[address] [facility] [place] Hep B, Adol or Pedi Dosage 2001-04-22 00:00:[address] [facility] [place] (IPV/OPV) 2001-04-22 00:00:[address] [facility] [place] DTaP, Unspecified Formulation 2001-04-22 00:00:[address] [facility] [place]V 2001-04-22 00:00:[address] [facility] [place] HIB 4 Dose Schedule 2001-04-22 00:00:[address] [facility] [place] 2001-04-22 00:00:[address] [facility] [place] HIB 4 Dose Schedule 2001-04-22 00:00:[address] [facility] [place] Hep B, Adol or Pedi Dosage 2001-04-22 00:00:[address] [facility] [place] (IPV/OPV) 2001-04-22 00:00:[address] [facility] [place] DTaP, Unspecified Formulation 2001-04-22 00:00:[address] [facility] [place]V 2001-04-22 00:00:[address] [facility] [place] Hep B, Adol or Pedi Dosage 2001-04-22 00:00:[address] [facility] [place] 2001-04-22 00:00:[address] [facility] [place] HIB 4 Dose Schedule 2001-04-22 00:00:[address] [facility] [place] Hep B, Adol or Pedi Dosage 2001-04-22 00:00:[address] [facility] [place] (IPV/OPV) 2001-04-22 00:00:[address] [facility] [place] D[place]P, Unspecified Formulation 2001-04-22 00:00:[address] [facility] [place] 2001-04-22 00:00:[address] [facility] [place] (IPV/OPV) 2001-04-22 00:00:[address] [facility] [place] 2001-04-22 00:00:[address] [facility] [place] HIB 4 Dose Schedule 2001-04-22 00:00:[address] [facility] [place] Hep B, Adol or Pedi Dosage 2001-04-22 00:00:[address] [facility] [place] (IPV/OPV) 2001-04-22 00:00:[address] [facility] [place] DTaP, Unspecified Formulation 2001-04-22 00:00:[address] [facility] [place] 2001-04-22 00:00:[address] [facility] [place] 2001-04-22 00:00:[address] [facility] [place] HIB 4 Dose Schedule 2001-04-22 00:00:[address] [facility] [place] Hep B, Adol or Pedi Dosage 2001-04-22 00:00:[address] [facility] [place] (IPV/OPV) 2001-04-22 00:00:[address] [facility] [place] DTaP, Unspecified Formulation 2001-04-22 00:00:[address] [facility] [place]V 2001-04-22 00:00:[address] [facility] [place] 2001-04-22 00:00:[address] [facility] [place] HIB 4 Dose Schedule 2001-04-22 00:00:[address] [facility] [place] Hep B, Adol or Pedi Dosage 2001-04-22 00:00:[address] [facility] [place] (IPV/OPV) 2001-04-22 00:00:[address] [facility] [place] D[place], Unspecified Formulation 2001-04-22 00:00:[address] [facility] [place]V 2001-04-22 00:00:[address] [facility] [place] 2001-04-22 00:00:[address] [facility] [place] HIB 4 Dose Schedule 2001-04-22 00:00:[address] [facility] [place] Hep B, Adol or Pedi Dosage 2001-04-22 00:00:[address] [facility] [place] (IPV/OPV) 2001-04-22 00:00:[address] [facility] [place] DTaP, Unspecified Formulation 2001-04-22 00:00:[address] [facility] [place]V 2001-04-22 00:00:[address] [facility] [place] 2001-04-22 00:00:[address] [facility] [place] HIB 4 Dose Schedule 2001-04-22 00:00:[address] [facility] [place] Hep B, Adol or Pedi Dosage 2001-04-22 00:00:[address] [facility] [place] (IPV/OPV) 2001-04-22 00:00:[address] [facility] [place] D[place]P, Unspecified Formulation 2001-04-22 00:00:[address] [facility] [place]V 2001-04-22 00:00:[address] [facility] [place] 2001-04-22 00:00:[address] [facility] [place] HIB 4 Dose Schedule 2001-04-22 00:00:[address] [facility] [place] Hep B, Adol or Pedi Dosage 2001-04-22 00:00:[address] [facility] [place] (IPV/OPV) 2001-04-22 00:00:[address] [facility] [place] D[place]P, Unspecified Formulation 2001-04-22 00:00:[address] [facility] [place]V 2001-04-22 00:00:[address] [facility] [place] 2001-04-22 00:00:[address] [facility] [place] HIB 4 Dose Schedule 2001-04-22 00:00:[address] [facility] [place] Hep B, Adol or Pedi Dosage 2001-04-22 00:00:[address] [facility] [place] (IPV/OPV) 2001-04-22 00:00:[address] [facility] [place] D[place]P, Unspecified Formulation 2001-04-22 00:00:[address] [facility] [place] IPV 2001-04-22 00:00:[address] [facility] [place] 2001-04-22 00:00:[address] [facility] [place] HIB 4 Dose Schedule 2001-04-22 00:00:[address] [facility] [place] Hep B, Adol or Pedi Dosage 2001-04-22 00:00:[address] [facility] [place] (IPV/OPV) 2001-04-22 00:00:[address] [facility] [place] D[place]P, Unspecified Formulation 2001-04-22 00:00:[address] [facility] [place] IPV 2001-04-22 00:00:[address] [facility] [place] 2001-04-22 00:00:[address] [facility] [place] HIB 4 Dose Schedule 2001-04-22 00:00:[address] [facility] [place] Hep B, Adol or Pedi Dosage 2001-04-22 00:00:[address] [facility] [place] (IPV/OPV) 2001-04-22 00:00:[address] [facility] [place] D[place]P, Unspecified Formulation 2001-04-22 00:00:[address] [facility] [place] IPV 2001-04-22 00:00:[address] [facility] [place] 2001-04-22 00:00:[address] [facility] [place] HIB 4 Dose Schedule 2001-04-22 00:00:[address] [facility] [place] Hep B, Adol or Pedi Dosage 2001-04-22 00:00:[address] [facility] [place] (IPV/OPV) 2001-04-22 00:00:[address] [facility] [place] D[place]P, Unspecified Formulation 2001-04-22 00:00:[address] [facility] [place]V 2001-04-22 00:00:[address] [facility] [place] 2001-04-22 00:00:[address] [facility] [place] HIB 4 Dose Schedule 2001-04-22 00:00:[address] [facility] [place] Hep B, Adol or Pedi Dosage 2001-04-22 00:00:[address] [facility] [place] (IPV/OPV) 2001-04-22 00:00:[address] [facility] [place] D[place]P, Unspecified Formulation 2001-04-22 00:00:[address] [facility] [place] 2001-04-22 00:00:[address] [facility] [place] 2001-04-22 00:00:[address] [facility] [place] HIB 4 Dose Schedule 2001-04-22 00:00:[address] [facility] [place] Hep B, Adol or Pedi Dosage 2001-04-22 00:00:[address] [facility] [place] (IPV/OPV) 2001-04-22 00:00:[address] [facility] [place] D[place]P, Unspecified Formulation 2001-04-22 00:00:[address] [facility] [place] 2001-04-22 00:00:[address] [facility] [place] 2001-04-22 00:00:[address] [facility] [place] HIB 4 Dose Schedule 2001-04-22 00:00:[address] [facility] [place] Hep B, Adol or Pedi Dosage 2001-04-22 00:00:[address] [facility] [place] (IPV/OPV) 2001-04-22 00:00:[address] [facility] [place] D[place]P, Unspecified Formulation 2001-04-22 00:00:[address] [facility] [place] 2001-04-22 00:00:[address] [facility] [place] 2001-04-22 00:00:[address] [facility] [place] HIB 4 Dose Schedule 2001-04-22 00:00:[address] [facility] [place] Hep B, Adol or Pedi Dosage 2001-04-22 00:00:[address] [facility] [place] (IPV/OPV) 2001-04-22 00:00:[address] [facility] [place] D[place], Unspecified Formulation 2001-04-22 00:00:[address] [facility] [place] 2001-04-22 00:00:[address] [facility] [place] 2001-04-22 00:00:[address] [facility] [place] 2001-04-22 00:00:[address] [facility] [place] HIB 4 Dose Schedule 2001-04-22 00:00:[address] [facility] [place] Hep B, Adol or Pedi Dosage 2001-04-22 00:00:[address] [facility] [place] (IPV/OPV) 2001-04-22 00:00:[address] [facility] [place] D[place]P, Unspecified Formulation 2001-04-22 00:00:[address] [facility] [place] 2001-04-22 00:00:[address] [facility] [place] 2001-04-22 00:00:[address] [facility] [place] HIB 4 Dose Schedule 2001-04-22 00:00:[address] [facility] [place] Hep B, Adol or Pedi Dosage 2001-04-22 00:00:[address] [facility] [place] (IPV/OPV) 2001-04-22 00:00:[address] [facility] [place] D[place]P, Unspecified Formulation 2001-04-22 00:00:[address] [facility] [place] 2001-04-22 00:00:[address] [facility] [place] 2001-04-22 00:00:[address] [facility] [place] HIB 4 Dose Schedule 2001-04-22 00:00:[address] [facility] [place] 2001-04-22 00:00:[address] [facility] [place] HIB 4 Dose Schedule 2001-04-22 00:00:[address] [facility] [place] Hep B, Adol or Pedi Dosage 2001-04-22 00:00:[address] [facility] [place] (IPV/OPV) 2001-04-22 00:00:[address] [facility] [place] D[place]P, Unspecified Formulation 2001-04-22 00:00:[address] [facility] [place] 2001-04-22 00:00:[address] [facility] [place] Hep B, Adol or Pedi Dosage 2001-04-22 00:00:[address] [facility] [place] (IPV/OPV) 2001-04-22 00:00:[address] [facility] [place] HIB 4 Dose Schedule 2001-04-22 00:00:[address] [facility] [place] 2001-04-22 00:00:[address] [facility] [place] HIB 4 Dose Schedule 2001-04-22 00:00:[address] [facility] [place] Hep B, Adol or Pedi Dosage 2001-04-22 00:00:[address] [facility] [place] (IPV/OPV) 2001-04-22 00:00:[address] [facility] [place] 2001-04-22 00:00:[address] [facility] [place] Hep B, Adol or Pedi Dosage 2001-04-22 00:00:[address] [facility] [place] HIB 4 Dose Schedule 2001-04-22 00:00:[address] [facility] [place] Hep B, Adol or Pedi Dosage 2001-04-22 00:00:[address] [facility] [place] (IPV/OPV) 2001-04-22 00:00:[address] [facility] [place] 2001-04-22 00:00:[address] [facility] [place] HIB 4 Dose Schedule 2001-04-22 00:00:[address] [facility] [place] Hep B, Adol or Pedi Dosage 2001-04-22 00:00:[address] [facility] [place] (IPV/OPV) 2001-04-22 00:00:[address] [facility] [place] 2001-04-22 00:00:[address] [facility] [place] HIB 4 Dose Schedule 2001-04-22 00:00:[address] [facility] [place] Hep B, Adol or Pedi Dosage 2001-04-22 00:00:[address] [facility] [place] (IPV/OPV) 2001-04-22 00:00:[address] [facility] [place] 2001-04-22 00:00:[address] [facility] [place] HIB 4 Dose Schedule 2001-04-22 00:00:[address] [facility] [place] Hep B, Adol or Pedi Dosage 2001-04-22 00:00:[address] [facility] [place] (IPV/OPV) 2001-04-22 00:00:[address] [facility] [place] 2001-04-22 00:00:[address] [facility] [place] HIB 4 Dose Schedule 2001-04-22 00:00:[address] [facility] [place] Hep B, Adol or Pedi Dosage 2001-04-22 00:00:[address] [facility] [place] (IPV/OPV) 2001-04-22 00:00:[address] [facility] [place] 2001-04-22 00:00:[address] [facility] [place] HIB 4 Dose Schedule 2001-04-22 00:00:[address] [facility] [place] Hep B, Adol or Pedi Dosage 2001-04-22 00:00:[address] [facility] [place] (IPV/OPV) 2001-04-22 00:00:[address] [facility] [place] 2001-04-22 00:00:[address] [facility] [place] 2001-04-22 00:00:[address] [facility] [place] HIB 4 Dose Schedule 2001-04-22 00:00:[address] [facility] [place] Hep B, Adol or Pedi Dosage 2001-04-22 00:00:[address] [facility] [place] (IPV/OPV) 2001-04-22 00:00:[address] [facility] [place] 2001-04-22 00:00:[address] [facility] [place] HIB 4 Dose Schedule 2001-04-22 00:00:[address] [facility] [place] (IPV/OPV) 2001-01-21 00:00:[address] [facility] [place] Hep B, Adol or Pedi Dosage 2001-01-21 00:00:[address] [facility] [place] (IPV/OPV) 2001-01-21 00:00:[address] [facility] [place] 2001-01-21 00:00:[address] [facility] [place] HIB 4 Dose Schedule 2001-01-21 00:00:[address] [facility] [place] Hep B, Adol or Pedi Dosage 2001-01-21 00:00:[address] [facility] [place] (IPV/OPV) 2001-01-21 00:00:[address] [facility] [place] 2001-01-21 00:00:[address] [facility] [place] HIB 4 Dose Schedule 2001-01-21 00:00:[address] [facility] [place] Hep B, Adol or Pedi Dosage 2001-01-21 00:00:[address] [facility] [place] (IPV/OPV) 2001-01-21 00:00:[address] [facility] [place] 2001-01-21 00:00:[address] [facility] [place] HIB 4 Dose Schedule 2001-01-21 00:00:[address] [facility] [place] Hep B, Adol or Pedi Dosage 2001-01-21 00:00:[address] [facility] [place] (IPV/OPV) 2001-01-21 00:00:[address] [facility] [place] 2001-01-21 00:00:[address] [facility] [place] HIB 4 Dose Schedule 2001-01-21 00:00:[address] [facility] [place] Hep B, Adol or Pedi Dosage 2001-01-21 00:00:[address] [facility] [place] 2001-01-21 00:00:[address] [facility] [place] (IPV/OPV) 2001-01-21 00:00:[address] [facility] [place] 2001-01-21 00:00:[address] [facility] [place] HIB 4 Dose Schedule 2001-01-21 00:00:[address] [facility] [place] Hep B, Adol or Pedi Dosage 2001-01-21 00:00:[address] [facility] [place] (IPV/OPV) 2001-01-21 00:00:[address] [facility] [place] HIB 4 Dose Schedule 2001-01-21 00:00:[address] [facility] [place] 2001-01-21 00:00:[address] [facility] [place] HIB 4 Dose Schedule 2001-01-21 00:00:[address] [facility] [place] Hep B, Adol or Pedi Dosage 2001-01-21 00:00:[address] [facility] [place] (IPV/OPV) 2001-01-21 00:00:[address] [facility] [place] 2001-01-21 00:00:[address] [facility] [facility] [place] [place] HIB 4 Dose Schedule 2001-01-21 00:00:[address] [facility] [place] Hep B, Adol or Pedi Dosage 2001-01-21 00:00:[address] [facility] [place] Polio (IPV/OPV) 2001-01-21 00:00:[address] [facility] [place] Hep B, Adol or Pedi Dosage 2001-01-21 00:00:[address] [facility] [place] DTAP 2001-01-21 00:00:[address] [facility] [place] HIB 4 Dose Schedule 2001-01-21 00:00:[address] [facility] [place] HIB 4 Dose Schedule 2001-01-21 00:00:[address] [facility] [place] Hep B, Adol or Pedi Dosage 2001-01-21 00:00:[address] [facility] [place] Polio (IPV/OPV) 2001-01-21 00:00:[address] [facility] [place] Polio (IPV/OPV) 2001-01-21 00:00:[address] [facility] [place] DTAP 2001-01-21 00:00:[address] [facility] [place] HIB 4 Dose Schedule 2001-01-21 00:00:[address] [facility] [place] Hep B, Adol or Pedi Dosage 2001-01-21 00:00:[address] [facility] [place] Polio (IPV/OPV) 2001-01-21 00:00:[address] [facility] [place] DTAP 2001-01-21 00:00:[address] [facility] [place] HIB 4 Dose Schedule 2001-01-21 00:00:[address] [facility] [place] Hep B, Adol or Pedi Dosage 2001-01-21 00:00:[address] [facility] [place] Polio (IPV/OPV) 2001-01-21 00:00:[address] [facility] [place] DTAP 2001-01-21 00:00:[address] [facility] [place] HIB 4 Dose Schedule 2001-01-21 00:00:[address] [facility] [place] Hep B, Adol or Pedi Dosage 2001-01-21 00:00:[address] [facility] [place] Polio (IPV/OPV) 2001-01-21 00:00:[address] [facility] [place] DTAP 2001-01-21 00:00:[address] [facility] [place] HIB 4 Dose Schedule 2001-01-21 00:00:[address] [facility] [place] DTAP 2001-01-21 00:00:[address] [facility] [place] HIB 4 Dose Schedule 2001-01-21 00:00:[address] [facility] [place] Hep B, Adol or Pedi Dosage 2001-01-21 00:00:[address] [facility] [place] Polio (IPV/OPV) 2001-01-21 00:00:[address] [facility] [place] DTAP 2001-01-21 00:00:[address] [facility] [place] HIB 4 Dose Schedule 2001-01-21 00:00:[address] [facility] [place] Hep B, Adol or Pedi Dosage 2001-01-21 00:00:[address] [facility] [place] Hep B, Adol or Pedi Dosage 2001-01-21 00:00:[address] [facility] [place] Polio (IPV/OPV) 2001-01-21 00:00:[address] [facility] [place] DTAP 2001-01-21 00:00:[address] [facility] [place] Polio (IPV/OPV) 2001-01-21 00:00:[address] [facility] [place] HIB 4 Dose Schedule 2001-01-21 00:00:[address] [facility] [place] Hep B, Adol or Pedi Dosage 2001-01-21 00:00:[address] [facility] [place] Polio (IPV/OPV) 2001-01-21 00:00:[address] [facility] [place] DTAP 2001-01-21 00:00:[address] [facility] [place] HIB 4 Dose Schedule 2001-01-21 00:00:[address] [facility] [place] Hep B, Adol or Pedi Dosage 2001-01-21 00:00:[address] [facility] [place] Polio (IPV/OPV) 2001-01-21 00:00:[address] [facility] [place] DTAP 2001-01-21 00:00:[address] [facility] [place] HIB 4 Dose Schedule 2001-01-21 00:00:[address] [facility] [place] Hep B, Adol or Pedi Dosage 2001-01-21 00:00:[address] [facility] [place] Polio (IPV/OPV) 2001-01-21 00:00:[address] [facility] [place] DTAP 2001-01-21 00:00:[address] [facility] [place] HIB 4 Dose Schedule 2001-01-21 00:00:[address] [facility] [place] Hep B, Adol or Pedi Dosage 2001-01-21 00:00:[address] [facility] [place] Polio (IPV/OPV) 2001-01-21 00:00:[address] [facility] [place] DTAP 2001-01-21 00:00:[address] [facility] [place] HIB 4 Dose Schedule 2001-01-21 00:00:[address] [facility] [place] Hep B, Adol or Pedi Dosage 2001-01-21 00:00:[address] [facility] [place] Polio (IPV/OPV) 2001-01-21 00:00:[address] [facility] [place] DTAP 2001-01-21 00:00:[address] [facility] [place] HIB 4 Dose Schedule 2001-01-21 00:00:[address] [facility] [place] Hep B, Adol or Pedi Dosage 2001-01-21 00:00:[address] [facility] [place] Polio (IPV/OPV) 2001-01-21 00:00:[address] [facility] [place] DTAP 2001-01-21 00:00:[address] [facility] [place] DTAP 2001-01-21 00:00:[address] [facility] [place] HIB 4 Dose Schedule 2001-01-21 00:00:[address] [facility] [place] HIB 4 Dose Schedule 2001-01-21 00:00:[address] [facility] [place] Hep B, Adol or Pedi Dosage 2001-01-21 00:00:[address] [facility] [place] Polio (IPV/OPV) 2001-01-21 00:00:[address] [facility] [place] DTAP 2001-01-21 00:00:[address] [facility] [place] HIB 4 Dose Schedule 2001-01-21 00:00:[address] [facility] [place] Hep B, Adol or Pedi Dosage 2001-01-21 00:00:[address] [facility] [place] Hep B, Adol or Pedi Dosage 2001-01-21 00:00:[address] [facility] [place] Polio (IPV/OPV) 2001-01-21 00:00:[address] [facility] [place] DTAP 2001-01-21 00:00:[address] [facility] [place] Hep B, Adol or Pedi Dosage 2001-01-21 00:00:[address] [facility] [place] HIB 4 Dose Schedule 2001-01-21 00:00:[address] [facility] [place] Hep B, Adol or Pedi Dosage 2001-01-21 00:00:[address] [facility] [place] Polio (IPV/OPV) 2001-01-21 00:00:[address] [facility] [place] DTAP 2001-01-21 00:00:[address] [facility] [place] HIB 4 Dose Schedule 2001-01-21 00:00:[address] [facility] [place] Polio (IPV/OPV) 2001-01-21 00:00:[address] [facility] [place] Hep B, Adol or Pedi Dosage 2001-01-21 00:00:[address] [facility] [place] Polio (IPV/OPV) 2001-01-21 00:00:[address] [facility] [place] DTAP 2001-01-21 00:00:[address] [facility] [place] HIB 4 Dose Schedule 2001-01-21 00:00:[address] [facility] [place] Hep B, Adol or Pedi Dosage 2001-01-21 00:00:[address] [facility] [place] Polio (IPV/OPV) 2001-01-21 00:00:[address] [facility] [place] DTAP 2001-01-21 00:00:[address] [facility] [place] HIB 4 Dose Schedule 2001-01-21 00:00:[address] [facility] [place] Hep B, Adol or Pedi Dosage 2001-01-21 00:00:[address] [facility] [place] Polio (IPV/OPV) 2001-01-21 00:00:[address] [facility] [place] DTAP 2001-01-21 00:00:[address] [facility] [place] HIB 4 Dose Schedule 2001-01-21 00:00:[address] [facility] [place] Hep B, Adol or Pedi Dosage 2001-01-21 00:00:[address] [facility] [place] Polio (IPV/OPV) 2001-01-21 00:00:[address] [facility] [place] DTAP 2001-01-21 00:00:[address] [facility] [place] HIB 4 Dose Schedule 2001-01-21 00:00:[address] [facility] [place] Hep B, Adol or Pedi Dosage 2001-01-21 00:00:[address] [facility] [place] Polio (IPV/OPV) 2001-01-21 00:00:[address] [facility] [place] DTAP 2001-01-21 00:00:[address] [facility] [place] DTAP 2001-01-21 00:00:[address] [facility] [place] HIB 4 Dose Schedule 2001-01-21 00:00:[address] [facility] [place] Hep B, Adol or Pedi Dosage 2001-01-21 00:00:[address] [facility] [place] Polio (IPV/OPV) 2001-01-21 00:00:[address] [facility] [place] DTAP 2001-01-21 00:00:[address] [facility] [place] HIB 4 Dose Schedule 2001-01-21 00:00:[address] [facility] [place] HIB 4 Dose Schedule 2001-01-21 00:00:[address] [facility] [place] Hep B, Adol or Pedi Dosage 2001-01-21 00:00:[address] [facility] [place] Polio (IPV/OPV) 2001-01-21 00:00:[address] [facility] [place] DTAP 2001-01-21 00:00:[address] [facility] [place] HIB 4 Dose Schedule 2001-01-21 00:00:[address] [facility] [place] Hep B, Adol or Pedi Dosage 2001-01-21 00:00:[address] [facility] [place] Polio (IPV/OPV) 2001-01-21 00:00:[address] [facility] [place] Hep B, Adol or Pedi Dosage 2001-01-21 00:00:[address] [facility] [place] DTAP 2001-01-21 00:00:[address] [facility] [place] HIB 4 Dose Schedule 2001-01-21 00:00:[address] [facility] [place] Hep B, Adol or Pedi Dosage 2001-01-21 00:00:[address] [facility] [place] Polio (IPV/OPV) 2001-01-21 00:00:[address] [facility] [place] Polio (IPV/OPV) 2001-01-21 00:00:[address] [facility] [place] DTAP 2001-01-21 00:00:[address] [facility] [place] HIB 4 Dose Schedule 2001-01-21 00:00:[address] [facility] [place] Hep B, Adol or Pedi Dosage 2001-01-21 00:00:[address] [facility] [place] Polio (IPV/OPV) 2001-01-21 00:00:[address] [facility] [place] DTaP, Unspecified Formulation 2001-01-21 00:00:[address] [facility] [place] IPV 2001-01-21 00:00:[address] [facility] [place] DTAP 2001-01-21 00:00:[address] [facility] [place] HIB 4 Dose Schedule 2001-01-21 00:00:[address] [facility] [place] Hep B, Adol or Pedi Dosage 2001-01-21 00:00:[address] [facility] [place] Polio (IPV/OPV) 2001-01-21 00:00:[address] [facility] [place] Polio (IPV/OPV) 2001-01-21 00:00:[address] [facility] [place] DTaP, Unspecified Formulation 2001-01-21 00:00:[address] [facility] [place] IPV 2001-01-21 00:00:[address] [facility] [place] DTAP 2001-01-21 00:00:[address] [facility] [place] HIB 4 Dose Schedule 2001-01-21 00:00:[address] [facility] [place] Hep B, Adol or Pedi Dosage 2001-01-21 00:00:[address] [facility] [place] Polio (IPV/OPV) 2001-01-21 00:00:[address] [facility] [place] DTaP, Unspecified Formulation 2001-01-21 00:00:[address] [facility] [place] IPV 2001-01-21 00:00:[address] [facility] [place] DTAP 2001-01-21 00:00:[address] [facility] [place] HIB 4 Dose Schedule 2001-01-21 00:00:[address] [facility] [place] Hep B, Adol or Pedi Dosage 2001-01-21 00:00:[address] [facility] [place] Polio (IPV/OPV) 2001-01-21 00:00:[address] [facility] [place] DTaP, Unspecified Formulation 2001-01-21 00:00:[address] [facility] [place] IPV 2001-01-21 00:00:[address] [facility] [place] DTAP 2001-01-21 00:00:[address] [facility] [place] HIB 4 Dose Schedule 2001-01-21 00:00:[address] [facility] [place] Hep B, Adol or Pedi Dosage 2001-01-21 00:00:[address] [facility] [place] Polio (IPV/OPV) 2001-01-21 00:00:[address] [facility] [place] DTaP, Unspecified Formulation 2001-01-21 00:00:[address] [facility] [place] DTAP 2001-01-21 00:00:[address] [facility] [place] IPV 2001-01-21 00:00:[address] [facility] [place] DTAP 2001-01-21 00:00:[address] [facility] [place] HIB 4 Dose Schedule 2001-01-21 00:00:[address] [facility] [place] Hep B, Adol or Pedi Dosage 2001-01-21 00:00:[address] [facility] [place] Polio (IPV/OPV) 2001-01-21 00:00:[address] [facility] [place] DTaP, Unspecified Formulation 2001-01-21 00:00:[address] [facility] [place] HIB 4 Dose Schedule 2001-01-21 00:00:[address] [facility] [place] IPV 2001-01-21 00:00:[address] [facility] [place] DTAP 2001-01-21 00:00:[address] [facility] [place] HIB 4 Dose Schedule 2001-01-21 00:00:[address] [facility] [place] Hep B, Adol or Pedi Dosage 2001-01-21 00:00:[address] [facility] [place] Polio (IPV/OPV) 2001-01-21 00:00:[address] [facility] [place] DTaP, Unspecified Formulation 2001-01-21 00:00:[address] [facility] [place] IPV 2001-01-21 00:00:[address] [facility] [place] Hep B, Adol or Pedi Dosage 2001-01-21 00:00:[address] [facility] [place] DTAP 2001-01-21 00:00:[address] [facility] [place] HIB 4 Dose Schedule 2001-01-21 00:00:[address] [facility] [place] Hep B, Adol or Pedi Dosage 2001-01-21 00:00:[address] [facility] [place] Polio (IPV/OPV) 2001-01-21 00:00:[address] [facility] [place] DTaP, Unspecified Formulation 2001-01-21 00:00:[address] [facility] [place] IPV 2001-01-21 00:00:[address] [facility] [place] Polio (IPV/OPV) 2001-01-21 00:00:[address] [facility] [place] DTAP 2001-01-21 00:00:[address] [facility] [place] HIB 4 Dose Schedule 2001-01-21 00:00:[address] [facility] [place] Hep B, Adol or Pedi Dosage 2001-01-21 00:00:[address] [facility] [place] Polio (IPV/OPV) 2001-01-21 00:00:[address] [facility] [place] DTaP, Unspecified Formulation 2001-01-21 00:00:[address] [facility] [place] IPV 2001-01-21 00:00:[address] [facility] [place] DTAP 2001-01-21 00:00:[address] [facility] [place] HIB 4 Dose Schedule 2001-01-21 00:00:[address] [facility] [place] Hep B, Adol or Pedi Dosage 2001-01-21 00:00:[address] [facility] [place] Polio (IPV/OPV) 2001-01-21 00:00:[address] [facility] [place] DTaP, Unspecified Formulation 2001-01-21 00:00:00 Completed [facility] IPV 2001-01-21 00:00:[address] [facility] [place] DTAP 2001-01-21 00:00:[address] [facility] [place] HIB 4 Dose Schedule 2001-01-21 00:00:[address] [facility] [place] Hep B, Adol or Pedi Dosage 2001-01-21 00:00:[address] [facility] [place] Polio (IPV/OPV) 2001-01-21 00:00:[address] [facility] [place] DTaP, Unspecified Formulation 2001-01-21 00:00:[address] [facility] [place] IPV 2001-01-21 00:00:[address] [facility] [place] DTAP 2001-01-21 00:00:[address] [facility] [place] HIB 4 Dose Schedule 2001-01-21 00:00:[address] [facility] [place] Hep B, Adol or Pedi Dosage 2001-01-21 00:00:[address] [facility] [place] Polio (IPV/OPV) 2001-01-21 00:00:[address] [facility] [place] DTaP, Unspecified Formulation 2001-01-21 00:00:[address] [facility] [place] IPV 2001-01-21 00:00:[address] [facility] [place] DTAP 2001-01-21 00:00:[address] [facility] [place] HIB 4 Dose Schedule 2001-01-21 00:00:[address] [facility] [place] Hep B, Adol or Pedi Dosage 2001-01-21 00:00:[address] [facility] [place] Polio (IPV/OPV) 2001-01-21 00:00:[address] [facility] [place] DTaP, Unspecified Formulation 2001-01-21 00:00:[address] [facility] [place] IPV 2001-01-21 00:00:[address] [facility] [place] DTAP 2001-01-21 00:00:[address] [facility] [place] HIB 4 Dose Schedule 2001-01-21 00:00:[address] [facility] [place] Hep B, Adol or Pedi Dosage 2001-01-21 00:00:[address] [facility] [place] Polio (IPV/OPV) 2001-01-21 00:00:[address] [facility] [place] DTaP, Unspecified Formulation 2001-01-21 00:00:[address] [facility] [place] IPV 2001-01-21 00:00:[address] [facility] [place] DTAP 2001-01-21 00:00:[address] [facility] [place] HIB 4 Dose Schedule 2001-01-21 00:00:[address] [facility] [place] Hep B, Adol or Pedi Dosage 2001-01-21 00:00:[address] [facility] [place] Polio (IPV/OPV) 2001-01-21 00:00:[address] [facility] [place] DTaP, Unspecified Formulation 2001-01-21 00:00:[address] [facility] [place] IPV 2001-01-21 00:00:[address] [facility] [place] DTAP 2001-01-21 00:00:[address] [facility] [place] HIB 4 Dose Schedule 2001-01-21 00:00:[address] [facility] [place] Hep B, Adol or Pedi Dosage 2001-01-21 00:00:[address] [facility] [place] Polio (IPV/OPV) 2001-01-21 00:00:[address] [facility] [place] DTaP, Unspecified Formulation 2001-01-21 00:00:[address] [facility] [place] IPV 2001-01-21 00:00:[address] [facility] [place] DTAP 2001-01-21 00:00:[address] [facility] [place] HIB 4 Dose Schedule 2001-01-21 00:00:[address] [facility] [place] Hep B, Adol or Pedi Dosage 2001-01-21 00:00:[address] [facility] [place] Polio (IPV/OPV) 2001-01-21 00:00:[address] [facility] [place] DTaP, Unspecified Formulation 2001-01-21 00:00:[address] [facility] [place] IPV 2001-01-21 00:00:[address] [facility] [place] DTAP 2001-01-21 00:00:[address] [facility] [place] HIB 4 Dose Schedule 2001-01-21 00:00:[address] [facility] [place] Hep B, Adol or Pedi Dosage 2001-01-21 00:00:[address] [facility] [place] Polio (IPV/OPV) 2001-01-21 00:00:[address] [facility] [place] DTaP, Unspecified Formulation 2001-01-21 00:00:[address] [facility] [place] IPV 2001-01-21 00:00:[address] [facility] [place] DTAP 2001-01-21 00:00:[address] [facility] [place] HIB 4 Dose Schedule 2001-01-21 00:00:[address] [facility] [place] Hep B, Adol or Pedi Dosage 2001-01-21 00:00:[address] [facility] [place] Polio (IPV/OPV) 2001-01-21 00:00:[address] [facility] [place] DTaP, Unspecified Formulation 2001-01-21 00:00:[address] [facility] [place] IPV 2001-01-21 00:00:[address] [facility] [place] DTAP 2001-01-21 00:00:[address] [facility] [place] HIB 4 Dose Schedule 2001-01-21 00:00:[address] [facility] [place] Hep B, Adol or Pedi Dosage 2001-01-21 00:00:[address] [facility] [place] Polio (IPV/OPV) 2001-01-21 00:00:[address] [facility] [place] DTaP, Unspecified Formulation 2001-01-21 00:00:[address] [facility] [place] IPV 2001-01-21 00:00:[address] [facility] [place] DTAP 2001-01-21 00:00:[address] [facility] [place] HIB 4 Dose Schedule 2001-01-21 00:00:[address] [facility] [place] Hep B, Adol or Pedi Dosage 2001-01-21 00:00:[address] [facility] [place] Polio (IPV/OPV) 2001-01-21 00:00:[address] [facility] [place] DTaP, Unspecified Formulation 2001-01-21 00:00:[address] [facility] [place] IPV 2001-01-21 00:00:[address] [facility] [place] DTAP 2001-01-21 00:00:[address] [facility] [place] DTAP 2001-01-21 00:00:[address] [facility] [place] HIB 4 Dose Schedule 2001-01-21 00:00:[address] [facility] [place] Hep B, Adol or Pedi Dosage 2001-01-21 00:00:[address] [facility] [place] Polio (IPV/OPV) 2001-01-21 00:00:[address] [facility] [place] DTaP, Unspecified Formulation 2001-01-21 00:00:[address] [facility] [place] IPV 2001-01-21 00:00:[address] [facility] [place] DTAP 2001-01-21 00:00:[address] [facility] [place] HIB 4 Dose Schedule 2001-01-21 00:00:[address] [facility] [place] Hep B, Adol or Pedi Dosage 2001-01-21 00:00:[address] [facility] [place] Polio (IPV/OPV) 2001-01-21 00:00:[address] [facility] [place] DTaP, Unspecified Formulation 2001-01-21 00:00:[address] [facility] [place] IPV 2001-01-21 00:00:[address] [facility] [place] DTAP 2001-01-21 00:00:[address] [facility] [place] HIB 4 Dose Schedule 2001-01-21 00:00:[address] [facility] [place] Hep B, Adol or Pedi Dosage 2001-01-21 00:00:[address] [facility] [place] Polio (IPV/OPV) 2001-01-21 00:00:[address] [facility] [place] DTaP, Unspecified Formulation 2001-01-21 00:00:[address] [facility] [place] IPV 2001-01-21 00:00:[address] [facility] [place] DTAP 2001-01-21 00:00:[address] [facility] [place] HIB 4 Dose Schedule 2001-01-21 00:00:[address] [facility] [place] DTAP 2001-01-21 00:00:[address] [facility] [place] HIB 4 Dose Schedule 2001-01-21 00:00:[address] [facility] [place] Hep B, Adol or Pedi Dosage 2001-01-21 00:00:[address] [facility] [place] Polio (IPV/OPV) 2001-01-21 00:00:[address] [facility] [place] DTaP, Unspecified Formulation 2001-01-21 00:00:[address] [facility] [place] IPV 2001-01-21 00:00:[address] [facility] [place] Hep B, Adol or Pedi Dosage 2001-01-21 00:00:[address] [facility] [place] HIB 4 Dose Schedule 2001-01-21 00:00:[address] [facility] [place] Polio (IPV/OPV) 2001-01-21 00:00:[address] [facility] [place] DTAP 2001-01-21 00:00:[address] [facility] [place] HIB 4 Dose Schedule 2001-01-21 00:00:[address] [facility] [place] Hep B, Adol or Pedi Dosage 2001-01-21 00:00:[address] [facility] [place] Polio (IPV/OPV) 2001-01-21 00:00:[address] [facility] [place] Hep B, Adol or Pedi Dosage 2001-01-21 00:00:[address] [facility] [place] DTAP 2001-01-21 00:00:[address] [facility] [place] HIB 4 Dose Schedule 2001-01-21 00:00:[address] [facility] [place] Hep B, Adol or Pedi Dosage 2001-01-21 00:00:[address] [facility] [place] Polio (IPV/OPV) 2001-01-21 00:00:[address] [facility] [place] DTAP 2001-01-21 00:00:[address] [facility] [place] HIB 4 Dose Schedule 2001-01-21 00:00:[address] [facility] [place] Hep B, Adol or Pedi Dosage 2001-01-21 00:00:[address] [facility] [place] Polio (IPV/OPV) 2001-01-21 00:00:[address] [facility] [place] DTAP 2001-01-21 00:00:[address] [facility] [place] HIB 4 Dose Schedule 2001-01-21 00:00:[address] [facility] [place] Hep B, Adol or Pedi Dosage 2001-01-21 00:00:[address] [facility] [place] Polio (IPV/OPV) 2001-01-21 00:00:[address] [facility] [place] DTAP 2001-01-21 00:00:[address] [facility] [place] HIB 4 Dose Schedule 2001-01-21 00:00:[address] [facility] [place] Hep B, Adol or Pedi Dosage 2001-01-21 00:00:[address] [facility] [place] Polio (IPV/OPV) 2001-01-21 00:00:[address] [facility] [place] DTAP 2001-01-21 00:00:[address] [facility] [place] HIB 4 Dose Schedule 2001-01-21 00:00:[address] [facility] [place] Hep B, Adol or Pedi Dosage 2001-01-21 00:00:[address] [facility] [place] Polio (IPV/OPV) 2001-01-21 00:00:[address] [facility] [place] DTAP 2001-01-21 00:00:[address] [facility] [place] DTAP 2001-01-21 00:00:[address] [facility] [place] HIB 4 Dose Schedule 2001-01-21 00:00:[address] [facility] [place] Hep B, Adol or Pedi Dosage 2001-01-21 00:00:[address] [facility] [place] Polio (IPV/OPV) 2001-01-21 00:00:[address] [facility] [place] DTAP 2001-01-21 00:00:[address] [facility] [place] HIB 4 Dose Schedule 2001-01-21 00:00:[address] [facility] [place] Hep B, Adol or Pedi Dosage 2001-01-21 00:00:[address] [facility] [place] Polio (IPV/OPV) 2001-01-21 00:00:[address] [facility] [place] DTAP 2001-01-21 00:00:[address] [facility] [place] HIB 4 Dose Schedule 2001-01-21 00:00:[address] [facility] [place] Hep B, Adol or Pedi Dosage 2000 00:00:[address] [facility] [place] Hep B, Adol or Pedi Dosage 2000 00:00:[address] [facility] [place] Hep B, Adol or Pedi Dosage 2000 00:00:[address] [facility] [place] Hep B, Adol or Pedi Dosage 2000 00:00:[address] [facility] [place] Hep B, Adol or Pedi Dosage 2000 00:00:[address] [facility] [place] Hep B, Adol or Pedi Dosage 2000 00:00:[address] [facility] [place] Hep B, Adol or Pedi Dosage 2000 00:00:[address] [facility] [place] Hep B, Adol or Pedi Dosage 2000 00:00:[address] [facility] [place] Hep B, Adol or Pedi Dosage 2000 00:00:[address] [facility] [place] Hep B, Adol or Pedi Dosage 2000 00:00:[address] [facility] [place] Hep B, Adol or Pedi Dosage 2000 00:00:[address] [facility] [place] Hep B, Adol or Pedi Dosage 2000 00:00:[address] [facility] [place] Hep B, Adol or Pedi Dosage 2000 00:00:[address] [facility] [place] Hep B, Adol or Pedi Dosage 2000 00:00:[address] [facility] [place] Hep B, Adol or Pedi Dosage 2000 00:00:[address] [facility] [place] Hep B, Adol or Pedi Dosage 2000 00:00:[address] [facility] [place] Hep B, Adol or Pedi Dosage 2000 00:00:[address] [facility] [place] Hep B, Adol or Pedi Dosage 2000 00:00:[address] [facility] [place] Hep B, Adol or Pedi Dosage 2000 00:00:[address] [facility] [place] Hep B, Adol or Pedi Dosage 2000 00:00:[address] [facility] [place] Hep B, Adol or Pedi Dosage 2000 00:00:[address] [facility] [place] Hep B, Adol or Pedi Dosage 2000 00:00:[address] [facility] [place] Hep B, Adol or Pedi Dosage 2000 00:00:[address] [facility] [place] Hep B, Adol or Pedi Dosage 2000 00:00:[address] [facility] [place] Hep B, Adol or Pedi Dosage 2000 00:00:[address] [facility] [place] Hep B, Adol or Pedi Dosage 2000 00:00:[address] [facility] [place] Hep B, Adol or Pedi Dosage 2000 00:00:[address] [facility] [place] Hep B, Adol or Pedi Dosage 2000 00:00:[address] [facility] [place] Hep B, Adol or Pedi Dosage 2000 00:00:[address] [facility] [place] Hep B, Adol or Pedi Dosage 2000 00:00:[address] [facility] [place] Hep B, Adol or Pedi Dosage 2000 00:00:[address] [facility] [place] Hep B, Adol or Pedi Dosage 2000 00:00:[address] [facility] [place] Hep B, Adol or Pedi Dosage 2000 00:00:[address] [facility] [place] Hep B, Adol or Pedi Dosage 2000 00:00:[address] [facility] [place] Hep B, Adol or Pedi Dosage 2000 00:00:[address] [facility] [place] Hep B, Adol or Pedi Dosage 2000 00:00:[address] [facility] [place] Hep B, Adol or Pedi Dosage 2000 00:00:[address] [facility] [place] Hep B, Adol or Pedi Dosage 2000 00:00:[address] [facility] [place] Hep B, Adol or Pedi Dosage 2000 00:00:[address] [facility] [place] Hep B, Adol or Pedi Dosage 2000 00:00:[address] [facility] [place] Hep B, Adol or Pedi Dosage 2000 00:00:[address] [facility] [place] Hep B, Adol or Pedi Dosage 2000 00:00:[address] [facility] [place] Hep B, Adol or Pedi Dosage 2000 00:00:[address] [facility] [place] Hep B, Adol or Pedi Dosage 2000 00:00:[address] [facility] [place] Hep B, Adol or Pedi Dosage 2000 00:00:[address] [facility] [place] Hep B, Adol or Pedi Dosage 2000 00:00:[address] [facility] [place] Hep B, Adol or Pedi Dosage 2000 00:00:[address] [facility] [place] Hep B, Adol or Pedi Dosage 2000 00:00:[address] [facility] [place] Hep B, Adol or Pedi Dosage 2000 00:00:[address] [facility] [place] Hep B, Adol or Pedi Dosage 2000 00:00:[address] [facility] [place] Hep B, Adol or Pedi Dosage 2000 00:00:[address] [facility] [place] Hep B, Adol or Pedi Dosage 2000 00:00:[address] [facility] [place] Hep B, Adol or Pedi Dosage 2000 00:00:[address] [facility] [place] Hep B, Adol or Pedi Dosage 2000 00:00:[address] [facility] [place] Hep B, Adol or Pedi Dosage 2000 00:00:[address] [facility] [place] Hep B, Adol or Pedi Dosage 2000 00:00:[address] [facility] [place] Hep B, Adol or Pedi Dosage 2000 00:00:[address] [facility] [place] Hep B, Adol or Pedi Dosage 2000 00:00:[address] [facility] [place] Hep B, Adol or Pedi Dosage 2000 00:00:[address] [facility] [place] Hep B, Adol or Pedi Dosage 2000 00:00:[address] [facility] [place] Hep B, Adol or Pedi Dosage 2000 00:00:[address] [facility] [place] Hep B, Adol or Pedi Dosage 2000 00:00:[address] [facility] [place] Hep B, Adol or Pedi Dosage 2000 00:00:[address] [facility] [place] Hep B, Adol or Pedi Dosage 2000 00:00:[address] [facility] [place] Hep B, Adol or Pedi Dosage 2000 00:00:[address] [facility] [place] Hep B, Adol or Pedi Dosage 2000 00:00:[address] [facility] [place] Hep B, Adol or Pedi Dosage 2000 00:00:[address] [facility] [place] Hep B, Adol or Pedi Dosage 2000 00:00:[address] [facility] [place] Hep B, Adol or Pedi Dosage 2000 00:00:[address] [facility] [place] Hep B, Adol or Pedi Dosage 2000 00:00:[address] [facility] [place] Hep B, Adol or Pedi Dosage 2000 00:00:[address] [facility] [place] Hep B, Adol or Pedi Dosage 2000 00:00:[address] [facility] [place] Hep B, Adol or Pedi Dosage 2000 00:00:[address] [facility] [place] HEPATITIS A Unknown Completed [facility] Meningococcal Vaccine Unknown Completed [facility] [place] Pneumococcal 13 Conjugate, PCV13 (Prevnar 13) Unknown Completed [facility] [place] Influenza Virus Vaccine Quad IM 6-35 MO Unknown Completed [facility] [place] Meningococcal Polysaccharide (groups A, C, Y and W-135) conjugate vaccine (MCV4P) Unknown Completed [facility] Meningococcal B, OMV Unknown Completed [facility] [place] Influenza Virus Vaccine Quad .5 mL IM 6+ MO (FLUZONE/FLULAVAL/FL UARIX) Unknown Completed [facility] [place] DTaP, Unspecified Formulation Unknown Completed [facility] [place] HEPA,NOS Unknown Completed [facility] [place] Hib-HbOC Unknown Completed [facility] [place] HIB 4 Dose Schedule Unknown Completed [facility] [place] Influenza Virus Vaccine (3+ yrs) Unknown Completed [facility] [place] IPV Unknown Completed [facility] [place] Meningococcal Polysaccharide (groups A, C, Y and W-135) conjugate vaccine (MCV4P) Unknown Completed [facility] Pneumococcal 7 Conjugate, PCV7 (Prevnar7) Unknown Completed [facility] [place] TDAP Unknown Completed [facility] [place] DTAP Unknown Completed [facility] [place] Hep B, Adol or Pedi Dosage Unknown Completed [facility] [place] MMR Unknown Completed [facility] [place] Polio (IPV/OPV) Unknown Completed [facility] Varicella (varivax)(chicken pox) Unknown Completed [facility] [place] DTAP Unknown Completed [facility] [place] HEPATITIS A Unknown Completed [facility] Hep B, Adol or Pedi Dosage Unknown Completed [facility] [place] Meningococcal Vaccine Unknown Completed [facility] [place] MMR Unknown Completed [facility] [place] Pneumococcal 13 Conjugate, PCV13 (Prevnar 13) Unknown Completed [facility] [place] Polio (IPV/OPV) Unknown Completed [facility] Varicella (varivax)(chicken pox) Unknown Completed [facility] [place] Influenza Virus Vaccine Quad IM 6-35 MO Unknown Completed [facility] [place] Meningococcal Polysaccharide (groups A, C, Y and W-135) conjugate vaccine (MCV4P) Unknown Completed [facility] Meningococcal B, OMV Unknown Completed [facility] [place] Influenza Virus Vaccine Quad .5 mL IM 6+ MO (FLUZONE/FLULAVAL/FL UARIX) Unknown Completed [facility] [place] DTaP, Unspecified Formulation Unknown Completed [facility] [place] HEPA,NOS Unknown Completed [facility] [place] Hib-HbOC Unknown Completed [facility] [place] HIB 4 Dose Schedule Unknown Completed [facility] [place] Influenza Virus Vaccine (3+ yrs) Unknown Completed [facility] [place] IPV Unknown Completed [facility] [place] Meningococcal Polysaccharide (groups A, C, Y and W-135) conjugate vaccine (MCV4P) Unknown Completed [facility] Pneumococcal 7 Conjugate, PCV7 (Prevnar7) Unknown Completed [facility] [place] TDAP Unknown Completed [facility] [place] DTAP Unknown Completed [facility] [place] HEPATITIS A Unknown Completed [facility] Hep B, Adol or Pedi Dosage Unknown Completed [facility] [place] Meningococcal Vaccine Unknown Completed [facility] [place] MMR Unknown Completed [facility] [place] Pneumococcal 13 Conjugate, PCV13 (Prevnar 13) Unknown Completed [facility] [place] Polio (IPV/OPV) Unknown Completed [facility] Varicella (varivax)(chicken pox) Unknown Completed [facility] [place] Influenza Virus Vaccine Quad IM 6-35 MO Unknown Completed [facility] [place] Meningococcal Polysaccharide (groups A, C, Y and W-135) conjugate vaccine (MCV4P) Unknown Completed [facility] Meningococcal B, OMV Unknown Completed [facility] [place] Influenza Virus Vaccine Quad .5 mL IM 6+ MO (FLUZONE/FLULAVAL/FL UARIX) Unknown Completed [facility] [place] DTaP, Unspecified Formulation Unknown Completed [facility] [place] HEPA,NOS Unknown Completed [facility] [place] Hib-HbOC Unknown Completed [facility] [place] HIB 4 Dose Schedule Unknown Completed [facility] [place] Influenza Virus Vaccine (3+ yrs) Unknown Completed [facility] [place] IPV Unknown Completed [facility] [place] Meningococcal Polysaccharide (groups A, C, Y and W-135) conjugate vaccine (MCV4P) Unknown Completed [facility] Pneumococcal 7 Conjugate, PCV7 (Prevnar7) Unknown Completed [facility] [place] TDAP Unknown Completed [facility] [place] DTAP Unknown Completed [facility] [place] HEPATITIS A Unknown Completed [facility] Hep B, Adol or Pedi Dosage Unknown Completed [facility] [place] Meningococcal Vaccine Unknown Completed [facility] [place] MMR Unknown Completed [facility] [place] Pneumococcal 13 Conjugate, PCV13 (Prevnar 13) Unknown Completed [facility] [place] Polio (IPV/OPV) Unknown Completed [facility] Varicella (varivax)(chicken pox) Unknown Completed [facility] [place] Influenza Virus Vaccine Quad IM 6-35 MO Unknown Completed [facility] [place] Meningococcal Polysaccharide (groups A, C, Y and W-135) conjugate vaccine (MCV4P) Unknown Completed [facility] Meningococcal B, OMV Unknown Completed [facility] [place] Influenza Virus Vaccine Quad .5 mL IM 6+ MO (FLUZONE/FLULAVAL/FL UARIX) Unknown Completed [facility] [place] DTaP, Unspecified Formulation Unknown Completed [facility] [place] HEPA,NOS Unknown Completed [facility] [place] Hib-HbOC Unknown Completed [facility] [place] HIB 4 Dose Schedule Unknown Completed [facility] [place] Influenza Virus Vaccine (3+ yrs) Unknown Completed [facility] [place] IPV Unknown Completed [facility] [place] Meningococcal Polysaccharide (groups A, C, Y and W-135) conjugate vaccine (MCV4P) Unknown Completed [facility] Pneumococcal 7 Conjugate, PCV7 (Prevnar7) Unknown Completed [facility] [place] TDAP Unknown Completed [facility] [place] DTAP Unknown Completed [facility] [place] HEPATITIS A Unknown Completed [facility] Hep B, Adol or Pedi Dosage Unknown Completed [facility] [place] Meningococcal Vaccine Unknown Completed [facility] [place] MMR Unknown Completed [facility] [place] Pneumococcal 13 Conjugate, PCV13 (Prevnar 13) Unknown Completed [facility] [place] Polio (IPV/OPV) Unknown Completed [facility] Varicella (varivax)(chicken pox) Unknown Completed [facility] [place] Influenza Virus Vaccine Quad IM 6-35 MO Unknown Completed [facility] [place] Meningococcal Polysaccharide (groups A, C, Y and W-135) conjugate vaccine (MCV4P) Unknown Completed [facility] Meningococcal B, OMV Unknown Completed [facility] [place] Influenza Virus Vaccine Quad .5 mL IM 6+ MO (FLUZONE/FLULAVAL/FL UARIX) Unknown Completed [facility] [place] DTaP, Unspecified Formulation Unknown Completed [facility] [place] HEPA,NOS Unknown Completed [facility] [place] Hib-HbOC Unknown Completed [facility] [place] HIB 4 Dose Schedule Unknown Completed [facility] [place] Influenza Virus Vaccine (3+ yrs) Unknown Completed [facility] [place] IPV Unknown Completed [facility] [place] [place] Meningococcal Polysaccharide (groups A, C, Y and W-135) conjugate vaccine (MCV4P) Unknown Completed [facility] Pneumococcal 7 Conjugate, PCV7 (Prevnar7) Unknown Completed [facility] [place] [place] TDAP Unknown Completed [facility] [place] [place] DTAP Unknown Completed [facility] [place] [place] HIB 4 Dose Schedule Unknown Completed [facility] [place] HEPATITIS A Unknown Completed [facility] Hep B, Adol or Pedi Dosage Unknown Completed [facility] [place] Meningococcal Vaccine Unknown Completed [facility] [place] [place] MMR Unknown Completed [facility] [place] [place] Pneumococcal 13 Conjugate, PCV13 (Prevnar 13) Unknown Completed [facility] [place] [place] Polio (IPV/OPV) Unknown Completed [facility] TDAP Unknown Completed [facility] [place] [place] Varicella (varivax)(chicken pox) Unknown Completed [facility] [place] [place] Influenza Virus Vaccine Quad IM 6-35 MO Unknown Completed [facility] [place] Meningococcal Polysaccharide (groups A, C, Y and W-135) conjugate vaccine (MCV4P) Unknown Completed [facility] Meningococcal B, OMV Unknown Completed [facility] [place] [place] Influenza Virus Vaccine Quad .5 mL IM 6+ MO (FLUZONE/FLULAVAL/FL UARIX) Unknown Completed [facility] [place] [place] DTaP, Unspecified Formulation Unknown Completed [facility] [place] HEPA,NOS Unknown Completed [facility] [place] Hib-HbOC Unknown Completed [facility] [place] [place] Influenza Virus Vaccine (3+ yrs) Unknown Completed [facility] [place] [place] IPV Unknown Completed [facility] [place] Meningococcal Polysaccharide (groups A, C, Y and W-135) conjugate vaccine (MCV4P) Unknown Completed [facility] Pneumococcal 7 Conjugate, PCV7 (Prevnar7) Unknown Completed [facility] [place] [place] Vital Signs Vital Name Observation Time Observation Value Comments S ource Systolic blood pressure 2023-06-06 01:34:00 125 mm[Hg] [facility] Diastolic blood pressure 2023-06-06 01:34:00 87 mm[Hg] [facility] Heart rate 2023-06-06 01:34:00 98 /min [facility] Body temperature 2023-06-06 01:34:[address] [facility] [place] [place] Respiratory rate 2023-06-06 01:34:00 16 /min [facility] [place] [place] Body weight 2023-06-06 01:34:00 57.607 kg [facility] BMI 2023-06-06 01:34:00 19.89 kg/m2 [facility] Oxygen saturation in Arterial blood by Pulse oximetry 2023-06-06 01:34:00 100 /min [facility] [place] Systolic blood pressure 2023-01-06 23:09:00 112 mm[Hg] [facility] Diastolic blood pressure 2023-01-06 23:09:00 72 mm[Hg] [facility] Heart rate 2023-01-06 23:09:00 72 /[facility] 2023-01-06 23:09:[address] [facility] [place] [place] Respiratory rate 2023-01-06 23:09:00 20 /min [facility] [place] [place] Body height 2023-01-06 23:09:00 170.2 cm [facility] Body weight 2023-01-06 23:09:00 63.05 kg [facility] BMI 2023-01-06 23:09:00 21.77 kg/m2 [facility] Oxygen saturation in Arterial blood by Pulse oximetry 2023-01-06 23:09:00 99 /min [facility] [place] Systolic blood pressure 2022-12-25 15:09:00 112 mm[Hg] [facility] Diastolic blood pressure 2022-12-25 15:09:00 79 mm[Hg] [place] [facility] Heart rate 2022-12-25 15:09:00 99 /min [facility] Body temperature 2022-12-25 15:09:[address] [facility] [place] Respiratory rate 2022-12-25 15:09:00 16 /min [facility] [place] [place] Body height 2022-12-25 15:09:00 167.6 cm [facility] Body weight 2022-12-25 15:09:00 61.236 kg [facility] BMI 2022-12-25 15:09:00 21.79 kg/m2 [facility] Oxygen saturation in Arterial blood by Pulse oximetry 2022-12-25 15:09:00 99 /min [facility] [place] [place] Systolic blood pressure 2022-12-12 23:15:00 110 mm[Hg] [facility] Diastolic blood pressure 2022-12-12 23:15:00 78 mm[Hg] [facility] Heart rate 2022-12-12 23:15:00 81 /min [facility] Body temperature 2022-12-12 23:15:[address] [facility] [place] [place] Respiratory rate 2022-12-12 23:15:00 14 /min [facility] [place] [place] Body weight 2022-12-12 23:15:00 62.143 kg [facility] BMI 2022-12-12 23:15:00 21.46 kg/m2 [facility] Oxygen saturation in Arterial blood by Pulse oximetry 2022-12-12 23:15:00 99 /min [facility] [place] [place] Systolic blood pressure 2022-11-25 20:11:00 120 mm[Hg] [facility] Diastolic blood pressure 2022-11-25 20:11:00 79 mm[Hg] [facility] Heart rate 2022-11-25 20:11:00 73 /min [facility] Respiratory rate 2022-11-25 20:11:00 18 /min [facility] [place] [place] Body height 2022-11-25 20:11:00 170.2 cm [facility] Body weight 2022-11-25 20:11:00 62.143 kg [facility] BMI 2022-11-25 20:11:00 21.46 kg/m2 [facility] Systolic blood pressure 2022-10-26 00:11:00 114 mm[Hg] [facility] Diastolic blood pressure 2022-10-26 00:11:00 78 mm[Hg] [facility] Heart rate 2022-10-26 00:11:00 66 /min [facility] Body temperature 2022-10-26 00:11:[address] [facility] [place] [place] Respiratory rate 2022-10-26 00:11:00 15 /min [facility] [place] [place] Body height 2022-10-26 00:11:00 170.2 cm [facility] Body weight 2022-10-26 00:11:00 64.184 kg [facility] BMI 2022-10-26 00:11:00 22.16 kg/m2 [facility] Oxygen saturation in Arterial blood by Pulse oximetry 2022-10-26 00:11:00 97 /min [facility] [place] Systolic blood pressure 2022-10-21 18:49:00 112 mm[Hg] [facility] Diastolic blood pressure 2022-10-21 18:49:00 71 mm[Hg] [facility] Heart rate 2022-10-21 18:49:00 99 /min [facility] Body temperature 2022-10-21 18:49:[address] [facility] [place] [place] Respiratory rate 2022-10-21 18:49:00 18 /min [facility] [place] [place] Body height 2022-10-21 18:49:00 170.2 cm [facility] Body weight 2022-10-21 18:49:00 63.05 kg [facility] BMI 2022-10-21 18:49:00 21.77 kg/m2 [facility] Systolic blood pressure 2022-10-16 21:15:00 109 mm[Hg] [facility] Diastolic blood pressure 2022-10-16 21:15:00 71 mm[Hg] [facility] Heart rate 2022-10-16 21:15:00 73 /min [facility] Body temperature 2022-10-16 21:15:[address] [facility] [place] [place] Respiratory rate 2022-10-16 21:15:00 18 /min [facility] [place] [place] Body height 2022-10-16 21:15:00 [facility].2 [facility] weight 2022-10-16 21:15:00 63.776 kg [facility] BMI 2022-10-16 21:15:00 22.02 kg/m2 [facility] Oxygen saturation in Arterial blood by Pulse oximetry 2022-10-16 21:15:00 96 /min [facility] [place] [place] Systolic blood pressure 2022-08-08 19:24:00 108 mm[Hg] [facility] Diastolic blood pressure 2022-08-08 19:24:00 74 mm[Hg] [facility] Heart rate 2022-08-08 19:24:00 86 /min [facility] Body temperature 2022-08-08 19:24:[address] [facility] [place] Respiratory rate 2022-08-08 19:24:00 18 /min [facility] [place] [place] Body height 2022-08-08 19:24:00 170.2 cm [facility] Body weight 2022-08-08 19:24:00 60.782 kg [facility] BMI 2022-08-08 19:24:00 20.99 kg/m2 [facility] Systolic blood pressure 2022-08-05 13:29:00 120 mm[Hg] [facility] Diastolic blood pressure 2022-08-05 13:29:00 61 mm[Hg] [facility] Heart rate 2022-08-05 13:29:00 66 /min [facility] Respiratory rate 2022-08-05 13:29:00 16 /min [facility] [place] [place] Body height 2022-08-05 13:29:00 [facility].2 [facility] Body weight 2022-08-05 13:29:00 61.598 kg [facility] BMI 2022-08-05 13:29:00 21.27 kg/m2 [facility] Oxygen saturation in Arterial blood by Pulse oximetry 2022-08-05 13:29:00 99 /min [facility] [place] Systolic blood pressure 2022-06-27 13:59:00 125 mm[Hg] [facility] Diastolic blood pressure 2022-06-27 13:59:00 81 mm[Hg] [facility] Heart rate 2022-06-27 13:59:00 105 /min [facility] Body temperature 2022-06-27 13:59:[address] [facility] [place] [place] Respiratory rate 2022-06-27 13:59:00 16 /min [facility] [place] [place] Body height 2022-06-27 13:59:00 170.2 cm [facility] Body weight 2022-06-27 13:59:00 60.601 kg [facility] BMI 2022-06-27 13:59:00 20.92 kg/m2 [facility] Systolic blood pressure 2022-06-21 20:13:00 116 mm[Hg] [facility] Diastolic blood pressure 2022-06-21 20:13:00 83 mm[Hg] [facility] Heart rate 2022-06-21 20:13:00 96 /min [facility] Body temperature 2022-06-21 20:13:[address] [facility] [place] [place] Respiratory rate 2022-06-21 20:13:00 16 /min [facility] [place] [place] Body height 2022-06-21 20:13:00 170.2 cm [facility] Body weight 2022-06-21 20:13:00 60.601 kg [facility] BMI 2022-06-21 20:13:00 20.92 kg/m2 [facility] Oxygen saturation in Arterial blood by Pulse oximetry 2022-06-21 20:13:00 97 /min [facility] [place] [place] Systolic blood pressure 2022-05-04 22:27:00 111 mm[Hg] [facility] Diastolic blood pressure 2022-05-04 22:27:00 73 mm[Hg] [facility] Heart rate 2022-05-04 22:27:00 72 /min [facility] Body temperature 2022-05-04 22:27:[address] [facility] [place] [place] Body height 2022-05-04 22:27:00 170.2 cm [facility] Body weight 2022-05-04 22:27:00 61.236 kg [facility] BMI 2022-05-04 22:27:00 21.14 kg/m2 [facility] Oxygen saturation in Arterial blood by Pulse oximetry 2022-05-04 22:27:00 96 /min [facility] [place] [place] Systolic blood pressure 2022-04-12 20:16:00 111 mm[Hg] [facility] Diastolic blood pressure 2022-04-12 20:16:00 71 mm[Hg] [facility] Heart rate 2022-04-12 20:16:00 109 /min [facility] Body temperature 2022-04-12 20:16:[address] [facility] [place] [place] Respiratory rate 2022-04-12 20:16:00 16 /min [facility] [place] [place] Body height 2022-04-12 20:16:00 170.2 cm [facility] Body weight 2022-04-12 20:16:00 61.281 kg [facility] BMI 2022-04-12 20:16:00 21.16 kg/m2 [facility] Oxygen saturation in Arterial blood by Pulse oximetry 2022-04-12 20:16:00 98 /min [facility] [place] [place] Systolic blood pressure 2022-03-27 23:01:00 114 mm[Hg] [facility] Diastolic blood pressure 2022-03-27 23:01:00 75 mm[Hg] [facility] Heart rate 2022-03-27 23:01:00 106 /min [facility] Body temperature 2022-03-27 23:01:[address] [facility] [place] [place] Respiratory rate 2022-03-27 23:01:00 17 /min [facility] [place] [place] Body weight 2022-03-27 23:01:00 65.318 kg [facility] BMI 2022-03-27 23:01:00 22.55 kg/m2 [facility] Oxygen saturation in Arterial blood by Pulse oximetry 2022-03-27 23:01:00 96 /min [facility] [place] [place] Systolic blood pressure 2022-01-05 21:04:00 111 mm[Hg] [facility] Diastolic blood pressure 2022-01-05 21:04:00 75 mm[Hg] [facility] Heart rate 2022-01-05 21:04:00 83 /min [facility] Body temperature 2022-01-05 21:04:[address] [facility] [place] [place] Respiratory rate 2022-01-05 21:04:00 18 /min [facility] [place] [place] Body height 2022-01-05 21:04:00 170.2 cm [facility] Body weight 2022-01-05 21:04:00 63.413 kg [facility] BMI 2022-01-05 21:04:00 21.90 kg/m2 [facility] Oxygen saturation in Arterial blood by Pulse oximetry 2022-01-05 21:04:00 100 /min [facility] [place] [place] Systolic blood pressure 2021-11-28 17:40:00 116 mm[Hg] [facility] Diastolic blood pressure 2021-11-28 17:40:00 80 mm[Hg] [facility] Heart rate 2021-11-28 17:40:00 76 /min [facility] Body temperature 2021-11-28 17:40:[address] [facility] [place] [place] Respiratory rate 2021-11-28 17:40:00 18 /min [facility] [place] [place] Body height 2021-11-28 17:40:00 170.2 cm [facility] Body weight 2021-11-28 17:40:00 58.333 kg [facility] BMI 2021-11-28 17:40:00 20.14 kg/m2 [facility] Oxygen saturation in Arterial blood by Pulse oximetry 2021-11-28 17:40:00 98 /min [facility] [place] [place] Systolic blood pressure 2021-11-26 20:37:00 123 mm[Hg] [facility] Diastolic blood pressure 2021-11-26 20:37:00 85 mm[Hg] [facility] Heart rate 2021-11-26 20:37:00 76 /min [facility] Body temperature 2021-11-26 20:37:[address] [facility] [place] [place] Respiratory rate 2021-11-26 20:37:00 18 /min [facility] [place] [place] Body weight 2021-11-26 20:37:00 57.289 kg [facility] BMI 2021-11-26 20:37:00 19.78 kg/m2 [facility] Oxygen saturation in Arterial blood by Pulse oximetry 2021-11-26 20:37:00 100 /min [facility] [place] [place] Systolic blood pressure 2021-11-18 23:46:00 119 mm[Hg] [facility] Diastolic blood pressure 2021-11-18 23:46:00 74 mm[Hg] [facility] Heart rate 2021-11-18 23:46:00 97 /min [facility] Body temperature 2021-11-18 23:46:[address] [facility] [place] [place] Respiratory rate 2021-11-18 23:46:00 18 /min [facility] [place] [place] Body height 2021-11-18 23:46:00 170.2 cm [facility] Body weight 2021-11-18 23:46:00 56.881 kg [facility] BMI 2021-11-18 23:46:00 19.64 kg/m2 [facility] Oxygen saturation in Arterial blood by Pulse oximetry 2021-11-18 23:46:00 97 /min [facility] [place] [place] BP Diastolic 2021-10-29 00:00:00 62 mm[Hg] [facility] Height 2021-10-29 00:00:00 67 [in_i] [facility] BMI (Body Mass Index) 2021-10-29 00:00:00 18.8 kg/m2 [facility] BP Systolic 2021-10-29 00:00:00 112 mm[Hg] [facility] Body Weight 2021-10-29 00:00:00 120 [lb_av] [facility] BP Diastolic 2021-09-26 00:00:00 62 mm[Hg] [facility] Height 2021-09-26 00:00:00 67 [in_i] [facility] BMI (Body Mass Index) 2021-09-26 00:00:00 17.2 kg/m2 [facility] BP Systolic 2021-09-26 00:00:00 110 mm[Hg] [facility] Body Weight 2021-09-26 00:00:00 110 [lb_av] [facility] oximetry 2021-08-25 15:20:00 97 % [facility] heart rate 2021-08-25 15:20:00 102 /min [facility] temperature 2021-08-25 15:20:00 98.4 [degF] [facility] BP Diastolic 2021-08-16 00:00:00 72 mm[Hg] [facility] Height 2021-08-16 00:00:00 67 [in_i] [facility] BMI (Body Mass Index) 2021-08-16 00:00:00 17.7 kg/m2 [facility] BP Systolic 2021-08-16 00:00:00 102 mm[Hg] [facility] Body Weight 2021-08-16 00:00:00 113 [lb_av] [facility] BP Diastolic 2021-06-14 00:00:00 76 mm[Hg] [facility] Height 2021-06-14 00:00:00 67 [in_i] [facility] BMI (Body Mass Index) 2021-06-14 00:00:00 19 kg/m2 [facility] BP Systolic 2021-06-14 00:00:00 102 mm[Hg] [facility] Body Weight 2021-06-14 00:00:00 121 [lb_av] [facility] Systolic blood pressure 2019-12-02 18:51:00 120 mm[Hg] [facility] Diastolic blood pressure 2019-12-02 18:51:00 78 mm[Hg] [facility] Heart rate 2019-12-02 18:51:00 79 /[facility] Body temperature 2019-12-02 18:51:[address] [facility] [place] [place] Respiratory rate 2019-12-02 18:51:00 16 /min [facility] [place] [place] Body height 2019-12-02 18:51:00 170.2 cm [facility] Body weight 2019-12-02 18:51:00 57.516 kg [facility] BMI 2019-12-02 18:51:00 19.86 kg/m2 [facility] Systolic blood pressure 2019-11-04 19:06:00 117 mm[Hg] [facility] Diastolic blood pressure 2019-11-04 19:06:00 80 mm[Hg] [facility] Heart rate 2019-11-04 19:06:00 86 /min [facility] Body temperature 2019-11-04 19:06:[address] [facility] [place] [place] Respiratory rate 2019-11-04 19:06:00 16 /min [facility] [place] [place] Body height 2019-11-04 19:06:00 170.2 cm [facility] Body weight 2019-11-04 19:06:00 59.563 kg [facility] BMI 2019-11-04 19:06:00 20.57 kg/m2 [facility] Systolic blood pressure 2019-09-20 19:27:00 114 mm[Hg] [facility] Diastolic blood pressure 2019-09-20 19:27:00 77 mm[Hg] [facility] Heart rate 2019-09-20 19:27:00 72 /min [facility] Body temperature 2019-09-20 19:27:[address] [facility] [place] [place] Respiratory rate 2019-09-20 19:27:00 16 /min [facility] [place] [place] Body height 2019-09-20 19:27:00 170.2 cm [facility] Body weight 2019-09-20 19:27:00 59.194 kg [facility] BMI 2019-09-20 19:27:00 20.44 kg/m2 [facility] Systolic blood pressure 2019-09-03 20:17:00 112 mm[Hg] [facility] Diastolic blood pressure 2019-09-03 20:17:00 72 mm[Hg] [facility] Heart rate 2019-09-03 20:17:00 70 /min [facility] Body temperature 2019-09-03 20:17:[address] [facility] [place] [place] Respiratory rate 2019-09-03 20:17:00 16 /min [facility] [place] [place] Body height 2019-09-03 20:17:00 170.2 cm [facility] Body weight 2019-09-03 20:17:00 59.081 kg [facility] BMI 2019-09-03 20:17:00 20.40 kg/m2 [facility] Systolic blood pressure 2019-07-28 17:00:00 141 mm[Hg] RN notified [facility] Diastolic blood pressure 2019-07-28 17:00:00 103 mm[Hg] RN notified [facility] Heart rate 2019-07-28 17:00:00 90 /min [facility] Body temperature 2019-07-28 17:00:[address] [facility] [place] Respiratory rate 2019-07-28 17:00:00 20 /min [facility] [place] [place] Oxygen saturation in Arterial blood by Pulse oximetry 2019-07-28 17:00:00 98 /min [facility] [place] [place] Body height 2019-07-25 18:47:00 170.2 cm [facility] Body weight 2019-07-25 18:47:00 72.576 kg [facility] BMI 2019-07-25 18:47:00 25.06 kg/m2 [facility] Systolic blood pressure 2019-06-29 19:59:00 119 mm[Hg] [facility] Diastolic blood pressure 2019-06-29 19:59:00 79 mm[Hg] [facility] Heart rate 2019-06-29 19:59:00 76 /min [facility] Body temperature 2019-06-29 19:59:[address] [facility] [place] [place] Respiratory rate 2019-06-29 19:59:00 16 /min [facility] [place] [place] Body height 2019-06-29 19:59:00 170.2 cm [facility] Body weight 2019-06-29 19:59:00 65.885 kg [facility] BMI 2019-06-29 19:59:00 22.75 kg/m2 [facility] Systolic blood pressure 2019-06-27 04:35:00 130 mm[Hg] [facility] Diastolic blood pressure 2019-06-27 04:35:00 87 mm[Hg] [facility] Heart rate 2019-06-27 04:35:00 76 /min [facility] Respiratory rate 2019-06-27 04:35:00 18 /min [facility] [place] [place] Oxygen saturation in Arterial blood by Pulse oximetry 2019-06-27 04:35:00 100 /min [facility] [place] [place] Body temperature 2019-06-27 03:39:[address] [facility] [place] [place] Body height 2019-06-27 03:39:00 170.2 cm [facility] Body weight 2019-06-27 03:39:00 63.957 kg [facility] BMI 2019-06-27 03:39:00 22.08 kg/m2 [facility] Systolic blood pressure 2019-06-19 02:16:00 131 mm[Hg] [facility] Diastolic blood pressure 2019-06-19 02:16:00 79 mm[Hg] [facility] Heart rate 2019-06-19 02:16:00 126 /min [facility] Body temperature 2019-06-19 02:16:[address] [facility] [place] [place] Respiratory rate 2019-06-19 02:16:00 18 /min [facility] [place] [place] Body height 2019-06-19 02:16:00 170.2 cm [facility] Body weight 2019-06-19 02:16:00 63.957 kg [facility] BMI 2019-06-19 02:16:00 22.08 kg/m2 [facility] Oxygen saturation in Arterial blood by Pulse oximetry 2019-06-19 02:16:00 97 /min [facility] [place] [place] Systolic blood pressure 2019-06-16 19:03:00 110 mm[Hg] [facility] Diastolic blood pressure 2019-06-16 19:03:00 70 mm[Hg] [facility] Heart rate 2019-06-16 19:03:00 76 /min [facility] Body temperature 2019-06-16 19:03:[address] [facility] [place] [place] Respiratory rate 2019-06-16 19:03:00 16 /min [facility] [place] [place] Body height 2019-06-16 19:03:00 170.2 cm Univ [facility] Body weight 2019-06-16 19:03:00 63.957 kg [facility] BMI 2019-06-16 19:03:00 22.08 kg/m2 [facility] Systolic blood pressure 2019-05-26 16:37:00 111 mm[Hg] [facility] Diastolic blood pressure 2019-05-26 16:37:00 68 mm[Hg] [facility] Heart rate 2019-05-26 16:37:00 79 /min [facility] Body temperature 2019-05-26 16:37:[address] [facility] [place] [place] Respiratory rate 2019-05-26 16:37:00 18 /min [facility] [place] [place] Body height 2019-05-26 16:37:00 170.2 cm [facility] Body weight 2019-05-26 16:37:00 59.194 kg [facility] BMI 2019-05-26 16:37:00 20.44 kg/m2 [facility] Systolic blood pressure 2019-05-24 03:00:00 111 mm[Hg] [facility] Diastolic blood pressure 2019-05-24 03:00:00 73 mm[Hg] [facility] Heart rate 2019-05-24 03:00:00 73 /min [facility] Respiratory rate 2019-05-24 03:00:00 16 /min [facility] [place] [place] Oxygen saturation in Arterial blood by Pulse oximetry 2019-05-24 03:00:00 98 /min [facility] [place] [place] Body temperature 2019-05-24 00:12:[address] [facility] [place] [place] Body height 2019-05-24 00:12:00 170.2 cm [facility] Body weight 2019-05-24 00:12:00 55.792 kg [facility] BMI 2019-05-24 00:12:00 19.26 kg/m2 [facility] Systolic blood pressure 2018-11-25 19:05:00 120 mm[Hg] [facility] Diastolic blood pressure 2018-11-25 19:05:00 84 mm[Hg] [place] [facility] Heart rate 2018-11-25 19:05:00 67 /min [facility] Body temperature 2018-11-25 19:05:00 36.28 [facility] Respiratory rate 2018-11-25 19:05:00 18 /min [facility] [place] [place] Body height 2018-11-25 19:05:00 170.2 cm [facility] Body weight 2018-11-25 19:05:00 50.077 kg [facility] BMI 2018-11-25 19:05:00 17.29 kg/m2 [facility] Oxygen saturation in Arterial blood by Pulse oximetry 2018-11-25 19:05:00 100 /min [facility] [place] [place] Procedures Procedure Date / Time Performed Performing Clinician Source POCT MOLECULAR STREP 2023-06-06 01:33:00 [facility] SARS-COV-2 ANTIGEN (BINAX NOW) 2022-12-25 15:43:[address] [facility] [place] [place] POCT MOLECULAR FLU 2022-12-25 15:19:00 Unknown, Attend [facility] POCT MOLECULAR STREP 2022-12-25 15:16:00 [facility] POCT SARS-COV-2 ANTIGEN (BINAX NOW) 2022-12-12 23:12:[address] [facility] [place] URINE CULTURE 2022-11-25 20:26:[address] [facility] [place] [place] GC & CHLAMYDIA AMPLIFIED ASSAY 2022-11-25 20:26:[address] [facility] [place] ASSIGNMENT OF BENEFITS 2022-11-25 19:56:38 Docto r Unassigned, [place] [facility] [place] POCT TEST 2022-11-25 00:00:[address] [facility] [place] POCT URINALYSIS W/O SPECIFIC GRAVITY 2022-11-25 00:00:[address] [facility] [place] [place] BI ULTRASOUND BREAST COMPLETE BILATERAL 2022-11-07 18:01:[address] [facility] [place] POCT MOLECULAR STREP 2022-10-26 00:16:00 Unknown, Attmark davis [facility] [place] [place] POCT TEST 2022-08-05 00:00:[address] [facility] [place] POCT URINALYSIS W/O SPECIFIC GRAVITY 2022-08-05 00:00:[address] [facility] [place] POCT URINALYSIS W/O SPECIFIC GRAVITY 2022-06-27 00:00:00 Samra Reyes [facility] PATIENT FINANCIAL POLICY 2022-06-21 19:58:32 Doctor Unassigned, [place] [facility] [place] POCT MOLECULAR STREP 2022-01-05 21:09:00 Unknown, Attmark davis [facility] [place] URINALYSIS 2021-11-26 21:30:00 Cathy Dennison [facility] COVID-19 (ID NOW RAPID TESTING) 2021-11-26 21:30:[address] [facility] [place] CONSENT/REFUSAL FOR DIAGNOSIS AND TREATMENT 2021-11-26 20:24:27 Doctor Unassigned, [place] [facility] [place] AUTHORIZATION FOR RELEASE OF PHI 2021-10-01 05:01:00 Doctor Unassigned, [place] [facility] [place] AUTHORIZATION FOR RELEASE OF PHI 2021-08-16 05:01:00 Doctor Unassigned, [place] [facility] [place] [place] POCT URINALYSIS W/O SPECIFIC GRAVITY 2019-09-03 20:21:[address] [facility] [place] VACCINATIONS - CONSENTS, ELIGIBILITY, HISTORY 2019-08-17 05:01:00 Doctor Unassigned, [place] [facility] [place] CBC WITH DIFFERENTIAL 2019-07-27 08:54:[address] [facility] [place] GALV ONLY - SYPHILIS IGG/IGM 2019-07-27 02:58:00 [facility] 2019-07-26 20:25:00 Ollie Bowser [facility] RHO (D) IMMUNE GLOBULIN 2019-07-26 20:25:[address] [facility] [place] [place] VENOUS CORD GAS 2019-07-26 15:33:[address] [facility] PELVIS > 14 WEEKS 2019-07-25 21:32:12 Yolanda [facility] BIOPHYSICAL PROFILE 2019-07-25 21:31:20 Yolanda [facility] URINE CULTURE 2019-07-25 21:17:00 Yolanda [facility] GROUP B STREPTOCOCCUS BY PCR 2019-07-25 20:45:00 Yolanda [facility] EXTRA TUBE SST 2019-07-25 19:36:00 Dicleyahir [facility] SGOT (ASPARTATE AMINO TRANSFER) 2019-07-25 19:29:00 Dicgarett [facility] CREATININE 2019-07-25 19:29:00 Teresa Diaz [facility] ALANINE AMINO TRANSFERASE(SGPT 2019-07-25 19:29:00 Dicgarett [facility] LACTATE DEHYDROGENASE 2019-07-25 19:29:00 Dicleyahir [facility] URIC ACID 2019-07-25 19:29:[address] [facility] CBC WITH DIFFERENTIAL 2019-07-25 19:29:00 Dicgarett [facility] HEPATITIS B SURFACE ANTIGEN 2019-07-25 19:29:00 Dicgarett [facility] ADC OR OLYA ONLY - RPR 2019-07-25 19:29:00 Maryana simmons [facility] HIV 1/2 AG-AB WITH REFLEX 2019-07-25 19:29:00 Maryana simmons [facility] HB ABO GROUPING 2019-07-25 19:25:[address] [facility] [place] URINALYSIS 2019-07-25 19:19:00 [facility] PROTEIN CREAT RATIO URINE RANDOM 2019-07-25 19:19:[address] [facility] [place] [place] CORONAVIRUS COVID-19 TESTING 2019-07-25 19:18:[address] [facility] [place] ASSIGNMENT OF BENEFITS 2019-07-25 18:24:02 Docto r Unassigned, [place] [facility] [place] [place] L&D VISIT (NON-DELIVERED) 2019-07-25 05:01:00 Do ctor Unassigned, [place] [facility] [place] [place] POCT URINALYSIS W/O SPECIFIC GRAVITY 2019-06-29 20:03:[address] [facility] [place] ADC,CLC OR LCC ONLY - INFLUENZA A & B DIRECT ANTIGEN 2019-06-19 02:21:[address] [facility] [place] NOTICE OF PRIVACY PRACTICES 2019-06-19 02:13:03 Doctor Unassigned, [place] [facility] [place] CONSENT/REFUSAL FOR DIAGNOSIS AND TREATMENT 2019-06-19 02:12:47 Doctor Unassigned, [place] [facility] [place] [place] TDAP (ADACEL) IMMUNIZATION 2019-06-16 19:03:[address] [facility] [place] POCT URINALYSIS GLUCOSE & PROTEIN 2019-05-26 16:42:[address] [facility] [place] [place] COMP. METABOLIC PANEL (24020) 2019-05-24 01:19:[address] [facility] [place] [place] CBC WITH DIFFERENTIAL 2019-05-24 01:19:[address] [facility] [place] [place] URINALYSIS 2019-05-24 01:19:00 Abhay Trevino [facility] NOTICE OF PRIVACY PRACTICES 2019-05-23 23:56:57 Doctor Unassigned, [place] [facility] [place] [place] CONSENT/REFUSAL FOR DIAGNOSIS AND TREATMENT 2019-05-23 23:56:38 Doctor Unassigned, [place] [facility] [place] INSURANCE CORRESPONDENCE 2018-11-25 05:01:00 Doc tor Unassigned, [place] [facility] [place] [place] Plan of Care Planned Activity Planned Date Details Comments Source Diagnostic Test Pending 2021-10-29 00:00:00 afp (alpha-fetoprotein), serum [code = afp (alpha-fetoprotein), serum] [facility] Diagnostic Test Pending 2021-10-29 00:00:00 unlisted lab [code = unlisted lab] [facility] Encounters Start Date/Time End Date/Time Encounter Type Admission Type Attending [facility] Care Facility Care Department Encounter ID Source 2023-10-24 08:40[facility]00 [id number] [facility] 2021-08-25 15:42:00 [facility] [id number] [facility] 2021-02-08 17:45:57 Emergency [facility] [id number] [facility] 2021-02-08 14:24:07 Outpatient P [facility] NATALI [id number] [facility] 2021-02-08 14:23:59 Emergency [facility] [id number] [facility] 2021-02-08 14:23:59 Outpatient P [facility] NAT[facility] [id number] [facility] 2021-02-08 13:07:34 Emergency [facility] [id number] [facility] 2020-02-16 14:00:00 Inpatient Ravi Kennedy [facility] [id number] [facility] 2023-11-30 12:25:00 2023-11-30 14:34:00 Emergency ER Alexandro Jaimes [facility] [id number] [id number] 2023-09-23 18:25:00 2023-09-23 21:58:00 Emergency ER Wolfgang Wolf [facility] [id number] [id number] 2023-06-05 19:20:00 2023-06-05 19:52:40 Outpatient AARON MARCOS [facility] [id number] [facility] 2023-06-05 19:20:00 2023-06-05 19:52:40 Urgent Care Aaron Becerra Unknown, Attending [facility] 1.2.840.114 350.1.13.10 4.2.7.2.686 [id number] [facility] 2023-02-17 10:45:00 2023-02-17 10:45:00 Outpatient R [facility] [id number] [facility] 2023-01-06 17:40:00 2023-01-06 18:38:09 Outpatient R SINDHU GREERJERONIMO [facility] [id number] [facility] 2023-01-06 17:40:00 2023-01-06 18:38:09 Urgent Care Ashia Greer Unknown, Attending [facility] 1.2.840.114 350.1.13.10 4.2.7.2.686 [id number] [facility] 2023-01-06 00:00:00 2023-01-06 00:00:00 Telephone GreerSindhu rendonsharmilamarylou [facility] 1.2.840.114 350.1.13.10 4.2.7.2.686 [id number] [facility] 2022-12-25 09:20:00 2022-12-25 11:43:03 Outpatient R GUMESHERRONAARON Plummer [facility] [id number] [facility] 2022-12-25 09:20:00 2022-12-25 11:43:03 Urgent Care Aaron Becerra Unknown, Attending [facility] 1.2.840.114 350.1.13.10 4.2.7.2.686 [id number] 370 [id number] [facility] 2022-12-25 00:00:00 2022-12-25 00:00:00 Telephone Aaron Becerra [facility] 1.2.840.114 350.1.13.10 4.2.7.2.686 [id number] [facility] 2022-12-12 18:00:00 2022-12-12 18:20:00 Urgent Care Aaron Becerra Unknown, Attending [facility] 1.2840.114 350.1.13.10 4.2.7.2.686 [id number] [facility] 2022-12-12 18:00:00 2022-12-12 18:00:00 Outpatient R AARON BECERRA [facility] [id number] [facility] 2022-11-25 15:30:00 2022-11-25 15:47:25 Outpatient R SAMRA REYES [facility] [id number] [facility] 2022-11-25 15:30:00 2022-11-25 15:47:25 Office Visit Samra Reyes [facility] 1.840.114 350.1.13.10 4.2.7.2.686 [id number] [facility] 2022-11-25 00:00:00 2022-11-25 00:00:00 Orders Only Doctor Unassigned, [place] [facility] 1.840.114 350.1.13.10 4.2.7.2.686 [id number] [facility] 2022-11-18 16:00:00 2022-11-18 16:00:00 Outpatient R SAMRA REYES [facility] [id number] [facility] 2022-11-18 13:30:00 2022-11-18 13:30:00 Outpatient R NELSON-ALON S, NIKOLE NELSON-ALON S, NIKOLE [facility] [id number] [facility] 2022-11-18 00:00:00 2022-11-18 00:00:00 Patient Secure Samra Dave [facility] 1.2.840.114 350.1.13.10 4.2.7.2.686 [id number] [facility] 2022-11-07 12:14:50 2022-11-07 23:59:00 Out[facility] R [facility] [id number] [facility] 2022-11-07 11:57:20 2022-11-07 23:59:00 Hospital Encounter Samra Reyes [facility] 1..840.114 350.1.13.10 4.2.7.2.686 [id number] [facility] 2022-10-27 00:00:00 2022-10-27 00:00:00 Telephone Ed [facility] 1.2.840.114 350.1.13.10 4.2.7.2.686 [id number] [facility] 2022-10-25 19:00:00 2022-10-25 19:39:25 Outpatient R RACHEL KEBEDE [facility] [id number] [facility] 2022-10-25 19:00:00 2022-10-25 19:39:25 Urgent Care Rachel Kebede Unknown, Attending [facility] 1.2.840.114 350.1.13.10 4.2.7.2.686 [id number] [facility] 2022-10-21 13:30:00 2022-10-21 14:23:05 Outpatient R DEEPTITSCHLER, [facility]IVÁN [facility] [id number] [facility] 2022-10-21 13:30:00 2022-10-21 14:23:05 Office Visit Samra Reyes [facility] 1.2.840.114 350.1.13.10 4.2.7.2.686 [id number] 134 [id number] [facility] 2022-10-20 00:00:00 2022-10-20 00:00:00 Patient Secure Msg Ed [facility] 1.2840.114 350.1.13.10 4.2.7.2.686 [id number] [facility] 2022-10-17 00:00:00 2022-10-17 00:00:00 Refill Rachel Kebede [facility] 1.2.840.114 350.1.13.10 4.2.7.2.686 [id number] [facility] 2022-10-16 16:00:00 2022-10-16 17:49:02 Outpatient R RACHEL KEBEDE [facility] [id number] [facility] 2022-10-16 16:00:00 2022-10-16 17:49:02 Urgent Care Rachel Kebede Unknown, Attending [facility] 1.2.840.114 350.1.13.10 4.2.7.2.686 [id number] 370 [id number] [facility] 2022-10-16 00:00:00 2022-10-16 00:00:00 Telephone Ed [facility] 1.2840.114 350.1.13.10 4.2.7.2.686 [id number] [facility] 2022-09-26 15:00:00 2022-09-26 15:00:00 Outpatient R SAMRA REYES [facility] [id number] [facility] 2022-09-12 15:30:00 2022-09-12 15:30:00 Outpatient R SAMRA REYES [facility] [id number] [facility] 2022-09-04 00:00:00 2022-09-04 00:00:00 Patient Secure Samra Dave [facility] 1.2.840.114 350.1.13.10 4.2.7.2.686 [id number] [facility] 2022-08-19 14:30:00 2022-08-19 14:30:00 Outpatient R SAMRA REYES [facility] [id number] [facility] 2022-08-19 00:00:00 2022-08-19 00:00:00 Outpatient PRIV [facility]IV [id number] [facility]22-08-08 14:30:00 2022-08-08 14:48:47 Outpatient R SAMRA REYES [facility] [id number] [facility] 2022-08-08 14:30:00 2022-08-08 14:48:47 Office Visit DeeptiSamra flanagan [facility] 1.2.840.114 350.1.13.10 4.2.7.2.686 [id number] [facility] 2022-08-06 00:00:00 2022-08-06 00:00:00 Telephone DeeptiSamra flanagan [facility] 1.2.840.114 350.1.13.10 4.2.7.2.686 [id number] 134 [id number] [facility] 2022-08-05 08:00:00 2022-08-05 08:30:00 Office Visit MusaSamra chavez [facility] 1.2.840.114 350.1.13.10 4.2.7.2.686 [id number] [facility] 2022-08-05 08:00:00 2022-08-05 08:00:00 Outpatient R DEEPTIZAHIDAGILLIANSAMRA CHAVEZ [facility] [id number] [facility] 2022-08-05 08:00:00 2022-08-05 08:00:00 Outpatient R DEEPTIZAHIDAGILLIANSAMRA CHAVEZ DEEPTIZAHIDAGILLIANIVÁN [facility]HU[facility] [id number] [facility] 2022-08-01 00:00:00 2022-08-01 00:00:00 Patient Secure Msg Francie Rooney [facility] 1.2.840.114 350.1.13.10 4.2.7.2.686 [id number] [facility] 2022-08-01 00:00:00 2022-08-01 00:00:00 [facility] 1.2.840.114 350.1.13.10 4.2.7.2.686 [id number] 134 [id number] [facility] 2022-07-01 00:00:00 2022-07-01 00:00:00 Patient Secure Msg Samra Reyes [facility] 1.2.840.114 350.1.13.10 4.2.7.2.686 [id number] 134 [id number] [facility] 2022-06-30 00:00:00 2022-06-30 00:00:00 Telephone TriSamra flanagan [facility] 1.2.840.114 350.1.13.10 4.2.7.2.686 [id number] [facility] 2022-06-27 08:30:00 2022-06-27 09:16:26 Outpatient R SAMRA REYES [facility] [id number] [facility] 2022-06-27 08:30:00 2022-06-27 09:16:26 Office Visit Samra Reyes [facility] 1.2.840.114 350.1.13.10 4.2.7.2.686 [id number] 134 [id number] [facility] 2022-06-27 00:00:00 2022-06-27 00:00:00 [facility] 1.2.840.114 350.1.13.10 4.2.7.2.686 [id number] 134 [id number] [facility] 2022-06-27 00:00:00 2022-06-27 00:00:00 Patient Secure Msg [facility] 1.2.840.114 350.1.13.10 4.2.7.2.686 [id number] [facility] 2022-06-21 13:40:00 2022-06-21 14:26:49 Outpatient R AARON BECERRA [facility] [id number] [facility] 2022-06-21 13:40:00 2022-06-21 14:26:49 Urgent Care Aaron Becerra Unknown, Attending [facility] 1.2840.114 350.1.13.10 4.2.7.2.686 [id number] [facility] 2022-06-21 00:00:00 2022-06-21 00:00:00 Orders Only Doctor Unassigned, [place] [facility] 1.2.840.114 350.1.13.10 4.2.7.2.686 [id number] [facility] 2022-06-19 15:00:00 2022-06-19 15:00:00 Outpatient R SAMRA REYES [facility] [id number] [facility] 2022-06-06 15:00:00 2022-06-06 15:00:00 Outpatient R AURORA VALENTIN [facility] [id number] [facility] 2022-05-30 15:00:00 2022-05-30 15:00:00 Outpatient R SAMRA REYES [facility] [id number] [facility] 2022-05-29 15:00:00 2022-05-29 15:00:00 Outpatient R SAMRA REYES [facility] [id number] [facility] 2022-05-04 16:40:00 2022-05-04 17:00:00 Urgent Care Francie Wray Unknown, Attending [facility] 1.2.840.114 350.1.13.10 4.2.7.2.686 [id number] [facility] 2022-05-04 16:40:00 2022-05-04 16:40:00 Outpatient R FRANCIE WRAY [facility] [id number] [facility] 2022-04-15 13:00:00 2022-04-15 13:00:00 Outpatient R SAMRA REYES [facility] [id number] [facility] 2022-04-12 14:00:00 2022-04-12 14:20:00 Urgent Care Aaron Becerra Unknown, Attending [facility] 1.2.840.114 350.1.13.10 4.2.7.2.686 [id number] [facility] 2022-04-12 14:00:00 2022-04-12 14:00:00 Outpatient R AARON BECERRA [facility] [id number] [facility] 2022-04-12 00:00:00 2022-04-12 00:00:00 Telephone Pcp, Patient Does Not Have A [facility] 1..840.114 350.1.13.10 4.2.7.2.686 [id number] [facility] 2022-04-12 00:00:00 2022-04-12 00:00:00 Telephone Provider, [facility] 1..840.114 350.1.13.10 4.2.7.2.686 [id number] [facility] 2022-03-28 13:00:00 2022-03-28 13:00:00 Outpatient R SAMRA REYES [facility] [id number] [facility] 2022-03-27 16:40:00 2022-03-27 17:00:00 Urgent Care Melisa Arrieta Unknown, Attending [facility] 1..840.114 350.1.13.10 4.2.7.2.686 [id number] [facility] 2022-03-27 16:40:00 2022-03-27 16:40:00 Outpatient R MELISA ARRIETA [facility] [id number] [facility] 2022-03-27 00:00:00 2022-03-27 00:00:00 Patient Secure Msg Doctor Unassigned, [place] [facility] 1..840.114 350.1.13.10 4.2.7.2.686 [id number] [facility] 2022-01-06 00:00:00 2022-01-06 00:00:00 Letter (Out) Sarah Parikh [facility] 1..840.114 350.1.13.10 4.2.7.2.686 [id number] [facility] 2022-01-05 16:00:00 2022-01-05 16:32:05 Outpatient R ELAINA SOTO [facility] [id number] [facility] 2022-01-05 16:00:00 2022-01-05 16:32:05 Urgent Care Elaina Soto Unknown, Attending [facility] MEDICAL OFFICE [facility] 1..840.114 350.1.13.10 4.2.7.2.686 [id number] [facility] 2021-11-28 12:40:00 2021-11-28 13:06:39 Outpatient Liz [facility] [id number] [facility] 2021-11-28 12:40:00 2021-11-28 13:00:00 Urgent Care Aaron Becerra Yink[place], [facility] [place] MEDICAL OFFICE BU[facility] 1..840.114 350.1.13.10 4.2.7.2.686 [id number] [facility] 2021-11-26 15:38:00 2021-11-26 17:49:00 Emergency X CATHY DENNISON [facility] ERT [id number] [facility] 2021-11-26 15:38:00 2021-11-26 17:49:00 Emergency GurwinderCathy lopez [facility] 1..840.114 350.1.13.10 4.2.7.2.686 [id number] [facility] 2021-11-18 18:20:00 2021-11-18 19:17:01 Outpatient SUSAN BENTON [facility] [id number] [facility] 2021-11-18 18:20:00 2021-11-18 19:17:01 Urgent Care Susan [place], [facility] 1.2.840.114 350.1.13.10 4.2.7.2.686 [id number] [facility] 2021-11-02 11:40:00 2021-11-02 11:40:00 Outpatient GC_BVWC_Per rone_J PRIV PRIV [id number] [facility] 2021-10-29 12:32:00 2021-10-29 12:32:00 Outpatient GC_BVWC_Per rone_J PRIV PRIV [id number] [facility] 2021-10-29 00:00:00 2021-10-29 00:00:00 Olimpia Lin MD: [address] [facility], [address], [place] [address] , Ph. [facility] - GC_BVWC_[facility] Office* [id number] [facility] 2021-10-29 00:00:00 2021-10-29 00:00:00 Outpatient Olimpia Lin [facility] [id number] 2021-10-01 00:00:00 2021-10-01 00:00:00 Orders Only Doctor Unassigned, [place] [address].840.114 350.1.13.10 4.2.7.2.686 [id number] [facility] 2021-09-26 04:11:00 2021-09-26 04:11:00 Outpatient GC_BVWC_Per rone_J PRIV PRIV [id number] [facility] 2021-09-26 04:11:00 2021-09-26 04:11:00 Outpatient GC_BVWC_Per rone_J PRIV PRIV [id number] [facility] 2021-09-26 00:00:00 2021-09-26 00:00:00 Olimpia Lin MD: [address], [address], [place] [address] , Ph. [facility] - [facility]WC_[place] Office* [id number] [facility] 2021-09-26 00:00:00 2021-09-26 00:00:00 Outpatient Olimpia Lin [facility] PRIV [id number] 2021-09-19 12:20:00 2021-09-19 12:20:00 Outpatient GC_BVWC_Per rone_J [facility] PRIV [id number] [facility] 2021-08-25 00:00:00 2021-08-25 00:00:00 Office Visit, New Pt., Level 2 STLS STLS [id number] [facility] 2021-08-21 03:10:00 2021-08-21 03:10:00 Outpatient GC_BVWC_Per rone_J [facility] PRIV [id number] [facility] 2021-08-18 11:31:00 2021-08-18 11:31:00 Outpatient [facility] PRIV [id number] [facility] 2021-08-16 04:18:00 2021-08-16 04:18:00 Outpatient GC_BVWC_Per rone_J [facility] PRIV [id number] [facility] 2021-08-16 00:00:00 2021-08-16 00:00:00 Outpatient Olimpia Lin [facility] [id number] 00:00:00 2021-08-16 00:00:00 Olimpia Lin MD: [address], [address], [place] [address] , Ph. [facility] - GC_BVWC_[facility] [place] Office* [id number] [facility] 2021-08-16 00:00:00 2021-08-16 00:00:00 Orders Only Doctor Unassigned, [place] [facility] 1.2.840.114 350.1.13.10 4.2.7.2.686 [id number] [facility] 2021-08-14 09:40:00 2021-08-14 09:40:00 Outpatient GC_BVWC_Per rone_J PRIV PRIV [id number] [facility] 2021-08-14 09:40:00 2021-08-14 09:40:00 Outpatient GC_BVWC_Per rone_J PRIV PRIV [id number] [facility] 2021-08-10 01:22:00 2021-08-10 01:22:00 Outpatient GC_BVWC_Per rone_J PRIV PRIV [id number] [facility] 2021-08-04 10:29:00 2021-08-04 12:34:00 Emergency ER Giuseppe Christopher STLSJX STLSJX [id number] STLSJX 2021-08-03 11:49:00 2021-08-03 11:49:00 Outpatient GC_BVWC_Per rone_J PRIV PRIV [id number] [facility] 2021-07-30 20:31:00 2021-07-30 23:46:00 Emergency ER SlaterChristopher parker STLSJX STLSJX [id number] STLSJX 2021-06-18 08:51:00 2021-06-18 08:51:00 Outpatient GC_BVWC_Per rone_J PRIV PRIV [id number] [facility] 2021-06-14 03:55:00 2021-06-14 03:55:00 Outpatient GC_BVWC_Per rone_J PRIV PRIV [id number] [facility] 2021-06-14 00:00:00 2021-06-14 00:00:00 Outpatient Olimpia Lin PRIV PRIV [id number] 2021-06-14 00:00:00 2021-06-14 00:00:00 Olimpia Lin MD: [address] [facility], [address], [place] [address] , Ph. [facility] Office* [id number] [facility] 2021-06-13 09:49:00 2021-06-13 09:49:00 Outpatient GC_BVWC_Per rone_J PRIV PRIV [id number] [facility] 2021-06-09 11:44:00 2021-06-09 11:44:00 Outpatient GC_BVWC_Sou th_J PRIV PRIV [id number] [facility] 2021-05-17 05:19:00 2021-05-17 05:19:00 Outpatient GC_BVWC_Sou th_J PRIV PRIV [id number] [facility] 2021-05-14 10:30:00 2021-05-14 10:30:00 Outpatient GC_BVWC_Sou th_J PRIV PRIV [id number] [facility] 2021-05-09 05:50:00 2021-05-09 05:50:00 Outpatient GC_BVWC_Per rone_J PRIV PRIV [id number] [facility] 2021-04-23 05:44:00 2021-04-23 05:44:00 Outpatient GC_BVWC_Per rone_J PRIV PRIV [id number] [facility] 2021-04-18 04:05:00 2021-04-18 04:05:00 Outpatient GC_BVWC_Per rone_J PRIV PRIV [id number] [facility] 2020-07-04 00:00:00 2020-07-04 00:00:00 Patient Outreach Nicola Pichardo [facility] 1.2.840.114 350.1.13.10 4.2.7.2.686 [id number] [facility] 2020-04-19 15:46:49 2020-04-19 16:06:49 Laboratory Only Lab, Adc Fam Pob Nadiya Rawls [facility] Building One 1.114 350.1.13.10 4.2.7.2.686 [id number] [facility] 2020-04-19 15:20:00 2020-04-19 15:20:00 Outpatient R NADIYA BLANCO [facility] [id number] [facility] 2019-12-12 00:00:00 2019-12-12 00:00:00 Nurse Triage Shanae [facility] 1..114 350.1.13.10 4.2.7.2.686 [id number] [facility] 2019-12-02 14:00:00 2019-12-02 14:00:00 Outpatient R CHERRY NORIEGA [facility] [id number] [facility] 2019-12-02 13:25:06 2019-12-02 13:40:06 Office Visit Cherry Noriega [facility] [employer] FINISHER [facility] MATERNAL & CHILD [facility] 1..114 350.1.13.10 4.2.7.2.686 [id number] [facility] 2019-12-01 00:00:00 2019-12-01 00:00:00 Telephone Cherry Noriega [facility] [employer] FLOAT FINISHER [facility] & CHILD [facility] 1..114 350.1.13.10 4.2.7.2.686 [id number] [facility] 2019-11-30 00:00:00 2019-11-30 00:00:00 Telephone Cherry Noriega [facility] FLOAT FINISHER [facility] MATERNAL & CHILD [facility] 1.0.114 350.1.13.10 4.2.7.2.686 [id number] 107 [id number] [facility] 2019-11-04 14:03:07 2019-11-04 14:46:23 Office Visit Lulú Noriegaveroniquecherelleryley Hill [facility] [employer] FLOAT FINISHER [facility] MATERNAL & CHILD [facility] 1.2.840.114 350.1.13.10 4.2.7.2.686 [id number] [facility] 2019-11-04 13:45:00 2019-11-04 13:45:00 Outpatient Liz NORIEGACHERRY [facility] [id number] [facility] 2019-11-02 00:00:00 2019-11-02 00:00:00 Nurse Triage Ibrahima Israelssica [facility] 1.2.840.114 350.1.13.10 4.2.7.2.686 [id number] [facility] 2019-10-13 11:00:00 2019-10-13 11:00:00 Outpatient Liz NORIEGACHERRY [facility] [id number] [facility] 2019-09-20 14:22:04 2019-09-20 14:37:04 Office Visit Noriega, Rosalice Hill [facility] [employer]LO[employer] FINISHER [facility]ERNAL & CHILD [facility] 1.2.840.114 350.1.13.10 4.2.7.2.686 [id number] [facility] 2019-09-20 13:45:00 2019-09-20 13:45:00 Outpatient Liz NORIEGACHERRY [facility] [id number] [facility] 2019-09-08 09:30:00 2019-09-08 09:30:00 Outpatient Liz NORIEGACHERRY [facility] [id number] [facility] 2019-09-03 15:07:52 2019-09-03 15:51:46 Routine Visit Gilbert Headley [facility] [employer] FINISHER [facility] & CHILD [facility] 1.2.840.114 350.1.13.10 4.2.7.2.686 [id number] 107 [id number] [facility] 2019-09-03 14:45:00 2019-09-03 14:45:00 Outpatient R GILBERT HEADLEY [facility] [id number] [facility] 2019-09-03 00:00:00 2019-09-03 00:00:00 Telephone Cherry Noriega [facility] [employer] FINISHER [facility] & CHILD [facility] 1.2.840.114 350.1.13.10 4.2.7.2.686 [id number] 107 [id number] [facility] 2019-09-03 00:00:00 2019-09-03 00:00:00 Telephone Gilbert Headley [facility] [employer] FLOAT FINISHER [facility] 1.2.840.114 350.1.13.10 4.2.7.2.686 [id number] [facility] 2019 00:00:00 2019 00:00:00 Telephone Cherry Noriega [facility] [employer] FLOAT FINISHER [facility] CHILD [facility] 1.2.840.114 350.1.13.10 4.2.7.2.686 [id number] 107 [id number] [facility] 2019-08-17 13:15:00 2019-08-17 13:15:00 Outpatient R CHERRY NORIEGA [facility] [id number] [facility] 2019-08-17 11:02:12 2019-08-17 11:17:12 Telemedici ne Visit Cherry Noriega [facility] [employer] FINISHER [facility] CHILD [facility] 1.2.840.114 350.1.13.10 4.2.7.2.686 [id number] 107 [id number] [facility] 2019-08-17 00:00:00 2019-08-17 00:00:00 Orders Only Doctor Unassigned, [place] [facility] 1.2.840.114 350.1.13.10 4.2.7.2.686 [id number] [facility] 2019-08-16 00:00:00 2019-08-16 00:00:00 Telephone Cherry Noriega [facility] [employer]LO[employer] FINISHER [facility] MATERNAL & CHILD HEALTH [facility] 1.2.840.114 350.1.13.10 4.2.7.2.686 [id number] [facility] 2019-08-06 00:00:00 2019-08-06 00:00:00 Encounter 1.2.840.1 [id number] [id number] 1.2.840.114 350.1.13.10 4.2.7.2.696 [id number] [facility] 2019-08-04 00:00:00 2019-08-04 00:00:00 Encounter 1.2.840.1 [id number] .[id number] 1.2.840.114 350.1.13.10 4.2.7.2.696 [id number] [facility] 2019-08-03 00:00:00 2019-08-03 00:00:00 Encounter 1.2.840.1 [id number] [id number] 1.2.840.114 350.1.13.10 4.2.7.2.696 [id number] [facility] 2019-07-29 00:00:00 2019-07-29 00:00:00 Telephone Unknown, Attending [facility] [employer] FIN[employer]ER [facility] MATERNAL & CHILD [facility] 1.2.840.114 350.1.13.10 4.2.7.2.686 [id number] 107 [id number] [facility] 2019-07-25 13:33:00 2019-07-28 14:53:00 Inpatient Lopez BOSS, TED BOSS, [facility] NATALI [id number] [facility] 2019-07-25 13:33:00 2019-07-28 14:53:00 Hospital Encounter Teresa Diaz Gera, [facility] 1.2840.114 350.1.13.10 4.2.7.2.686 [id number] [facility] 2019-07-27 08:15:00 2019-07-27 08:15:00 Outpatient R CHERRY NORIEGA [facility] [id number] [facility] 2019-07-25 00:00:00 2019-07-25 00:00:00 Orders Only Doctor Unassigned, [place] [facility] 1.2.840.114 350.1.13.10 4.2.7.2.686 [id number] [facility] 2019-07-15 13:10:31 2019-07-15 14:59:08 Telemedici ne Visit Cherry Noriega [facility] FLOAT FINISHER [facility] MATERNAL & CHILD HEALTH [facility] 1..840.114 350.1.13.10 4.2.7.2.686 [id number] [facility] 2019-07-15 13:30:00 2019-07-15 13:30:00 Outpatient R CHERRY NORIEGA [facility] [id number] [facility] 2019-07-15 00:00:00 2019-07-15 00:00:00 Telephone Cherry Noriega [facility]LO[employer] FINISHER [facility] MATERNAL & CHILD [facility] 1.840.114 350.1.13.10 4.2.7.2.686 [id number] 107 [id number] [facility] 2019-06-30 12:45:00 2019-06-30 12:45:00 Outpatient R CHERRY NORIEGA [facility] [id number] [facility] 2019-06-29 14:49:25 2019-06-29 15:24:31 Routine Visit Cherry Noriega [facility] [employer] FLOAT FINISHER [facility] MATERNAL & CHILD [facility] 1.2.840.114 350.1.13.10 4.2.7.2.686 [id number] [facility] 2019-06-29 15:00:00 2019-06-29 15:00:00 Outpatient R CHERRY NORIEGA [facility] [id number] [facility] 2019-06-26 22:23:00 2019-06-27 00:10:00 Hospital Encounter Teresa Diaz [facility] 1.2.840.114 350.1.13.10 4.2.7.2.686 [id number] [facility] 2019-06-25 00:00:00 2019-06-25 00:00:00 Telephone Cherry Noriega [facility] FLOAT FINISHER [facility] & CHILD [facility] 1.2.840.114 350.1.13.10 4.2.7.2.686 [id number] 107 [id number] [facility] 2019-06-18 20:22:52 2019-06-18 21:46:00 Emergency Glo Aggarwal [facility] 1.2.840.114 350.1.13.10 4.2.7.2.686 [id number] [facility] 2019-06-16 12:47:10 2019-06-16 13:41:25 Routine Visit Cherry Noriega [facility] FLOAT FINISHER [facility] MATERNAL & CHILD [facility] 1.2.840.114 350.1.13.10 4.2.7.2.686 [id number] [facility] 2019-06-16 12:45:00 2019-06-16 12:45:00 Outpatient R CHERRY NORIEGA [facility] [id number] [facility] 2019-05-26 10:18:18 2019-05-26 12:58:33 Routine Visit Cherry Noriega [facility] B[employer] FLOAT FINISHER [facility] MATERNAL & [facility]ILD [facility] 1.2.840.114 350.1.13.10 4.2.7.2.686 [id number] [facility] 2019-05-23 18:18:07 2019-05-23 21:18:00 Emergency X TREVINOABHAY [facility] ERT [id number] [facility] 2019-05-23 18:18:07 2019-05-23 21:18:00 Emergency Abhay Trevino S [facility] 1.2.840.114 350.1.13.10 4.2.7.2.686 [id number] [facility] 2019-05-23 00:00:00 2019-05-23 00:00:00 Orders Only Doctor Unassigned, [place] [facility] 1.2.840.114 350.1.13.10 4.2.7.2.686 [id number] [facility] 2018-11-25 13:54:04 2018-11-25 14:27:51 Office Visit Perla Peraza [facility] 1.2.840.114 350.1.13.10 4.2.7.2.686 [id number] [facility] 2018-11-25 00:00:00 2018-11-25 00:00:00 Letter (Out) Perla Peraza [facility] 1.2.840.114 350.1.13.10 4.2.7.2.686 [id number] [facility] 2018-11-25 00:00:00 2018-11-25 00:00:00 Telephone Perla ePraza [facility] 1.2.840.114 350.1.13.10 4.2.7.2.686 [id number] [facility] 2018-11-25 00:00:00 2018-11-25 00:00:00 Orders Only Doctor Unassigned, [place] [facility] 1.2.840.114 350.1.13.10 4.2.7.2.686 [id number] [facility] Results Test Description Test Time Test Comments Results Result Co mments Source [facility] SARS-COV-2 ANTIGEN (BINAX NOW)2022-12-25 15:43:00* Test Item Value Reference Range Interpretation Comme nts POCT SARS-COV-2 ANTIGEN (test code = 30517-4) Not Detected Not Detected On board controls acceptable with C Line (test code = 3574) Yes MATTHEW (test code = MATTHEW) accurate developme nt and interpretation of all internal controls Lab Interpretation (test code = 40598-5) Normal [facility] SARS-COV-2 ANTIGEN (BINAX NOW)2022-12-25 15:43:00* Test Item Value Reference Range Interpretation Comme nts POCT SARS-COV-2 ANTIGEN (test code = 12494-5) Not Detected Not Detected On board controls acceptable with C Line (test code = 3574) Yes MATTHEW (test code = MATTHEW) accurate developme nt and interpretation of all internal controls Lab Interpretation (test code = 53531-4) Normal [facility] MOLECULAR [id number] 15:30:51* Test Item Value Reference Range Interpretation Comme nts POCT Molecular FluA (test co de = 44096-0) Negative Negative POCT Molecular FluB (test co de = 77787-9) Negative Negative Lab Interpretation (test cod e = 53588-1) Normal [facility] MOLECULAR [id number] 15:30:51* Test Item Value Reference Range Interpretation Comme nts POCT Molecular FluA (test co de = 39185-2) Negative Negative POCT Molecular FluB (test co de = 74149-5) Negative Negative Lab Interpretation (test cod e = 99120-2) Normal [facility] MOLECULAR [id number] 15:24:54* Test Item Value Reference Range Interpretation Comme nts POCT Molecular Strep (test c ode = 16564-8) Negative Negative Lab Interpretation (test cod e = 66909-6) Normal [facility] MOLECULAR [id number] 15:24:54* Test Item Value Reference Range Interpretation Comme nts POCT Molecular Strep (test c ode = 28543-3) Negative Negative Lab Interpretation (test cod e = 19595-6) Normal [facility] SARS-COV-2 ANTIGEN (BINAX NOW)2022-12-12 23:27:00* Test Item Value Reference Range Interpretation Comme nts POCT SARS-COV-2 ANTIGEN (celine t code = 48478-8) Not Detected Not Detected On board controls acceptable with C Line (test code = 3574) Yes Lab Interpretation (test cod e = 30392-6) Normal [facility] [id number] 20:24:00* Test Item Value Reference Range Interpretation Comme nts POCT PREG (test code = 1605) Negative On board controls acceptable with C Line (test code = 3574) Yes POCT PREG LOT # (test code = 3575) POCT PREG TEST DATE ( test code = 3576) [facility] [id number] 20:24:00* Test Item Value Reference Range Interpretation Comme nts POCT PREG (test code = 1605) Negative On board controls acceptable with C Line (test code = 3574) Yes POCT PREG LOT # (test code = 3575) POCT PREG TEST DATE ( test code = 3576) [facility] URINALYSIS W/O SPECIFIC [id number] 20:23:00* Test Item Value Reference Range Interpretation Comme nts POCT PH U (test code = 3254) 5 mg/dl 5-8 POCT U LEUK EST (test code = 3263) Trace Negative - Negative POCT U NIT (test code = 3262) Negative Negative - Negati ve POCT U PROT (test code = 3259) Trace Negative - Negat kemar POCT U GLU (test code = 3256) Negative Negative - Negati ve POCT U KETONE (test code = 3258) Negative Negative - Neg ative POCT U BLD (test code = 3257) Negative Negative - Negati ve [facility] URINALYSIS W/O SPECIFIC [id number] 20:23:00* Test Item Value Reference Range Interpretation Comme nts POCT PH U (test code = 3254) 5 mg/dl 5-8 POCT U LEUK EST (test code = 3263) Trace Negative - Negative POCT U NIT (test code = 3262) Negative Negative - Negati ve POCT U PROT (test code = 3259) Trace Negative - Negat kemar POCT U GLU (test code = 3256) Negative Negative - Negati ve POCT U KETONE (test code = 3258) Negative Negative - Neg ative POCT U BLD (test code = 3257) Negative Negative - Negati ve [facility] MOLECULAR [id number] 00:24:04* Test Item Value Reference Range Interpretation Comme nts POCT Molecular Strep (test c ode = 35656-4) Negative Negative Lab Interpretation (test cod e = 37091-1) Normal [facility] [id number] 13:45:00* Test Item Value Reference Range Interpretation Comme nts POCT PREG (test code = 1605) Negative On board controls acceptable with C Line (test code = 3574) Yes POCT PREG LOT # (test code = 3575) POCT PREG TEST DATE ( test code = 3576) [facility] URINALYSIS W/O SPECIFIC [id number] 13:45:00* Test Item Value Reference Range Interpretation Comme nts POCT PH U (test code = 3254) 5 mg/dl 5-8 POCT U LEUK EST (test code = 3263) positive Negative - Negative POCT U NIT (test code = 3262) negative Negative - Negati ve POCT U PROT (test code = 3259) trace Negative - Negat kemar POCT U GLU (test code = 3256) negative Negative - Negati ve POCT U KETONE (test code = 3258) negative Negative - Neg ative POCT U BLD (test code = 3257) positive Negative - Negati ve [facility] [id number] 13:45:00* Test Item Value Reference Range Interpretation Comme nts POCT PREG (test code = 1605) Negative On board controls acceptable with C Line (test code = 3574) Yes POCT PREG LOT # (test code = 3575) POCT PREG TEST DATE ( test code = 3576) [facility] URINALYSIS W/O SPECIFIC [id number] 13:45:00* Test Item Value Reference Range Interpretation Comme nts POCT PH U (test code = 3254) 5 mg/dl 5-8 POCT U LEUK EST (test code = 3263) positive Negative - Negative POCT U NIT (test code = 3262) negative Negative - Negati ve POCT U PROT (test code = 3259) trace Negative - Negat kemar POCT U GLU (test code = 3256) negative Negative - Negati ve POCT U KETONE (test code = 3258) negative Negative - Neg ative POCT U BLD (test code = 3257) positive Negative - Negati ve [facility] [id number] 13:45:00* Test Item Value Reference Range Interpretation Comme nts POCT PREG (test code = 1605) Negative On board controls acceptable with C Line (test code = 3574) Yes POCT PREG LOT # (test code = 3575) POCT PREG TEST DATE ( test code = 3576) [facility] URINALYSIS W/O SPECIFIC [id number] 13:45:00* Test Item Value Reference Range Interpretation Comme nts POCT PH U (test code = 3254) 5 mg/dl 5-8 POCT U LEUK EST (test code = 3263) positive Negative - Negative POCT U NIT (test code = 3262) negative Negative - Negati ve POCT U PROT (test code = 3259) trace Negative - Negat kemar POCT U GLU (test code = 3256) negative Negative - Negati ve POCT U KETONE (test code = 3258) negative Negative - Neg ative POCT U BLD (test code = 3257) positive Negative - Negati ve [facility] URINALYSIS W/O SPECIFIC [id number] 13:59:00* Test Item Value Reference Range Interpretation Comme nts POCT PH U (test code = 3254) 5 mg/dl 5-8 POCT U LEUK EST (test code = 3263) negative Negative - Negative POCT U NIT (test code = 3262) negative Negative - Negati ve POCT U PROT (test code = 3259) negative Negative - Negat kemar POCT U GLU (test code = 3256) negative Negative - Negati ve POCT U KETONE (test code = 3258) negative Negative - Neg ative POCT U BLD (test code = 3257) negative Negative - Negati ve [facility] URINALYSIS W/O SPECIFIC [id number] 13:59:00* Test Item Value Reference Range Interpretation Comme nts POCT PH U (test code = 3254) 5 mg/dl 5-8 POCT U LEUK EST (test code = 3263) negative Negative - Negative POCT U NIT (test code = 3262) negative Negative - Negati ve POCT U PROT (test code = 3259) negative Negative - Negat kemar POCT U GLU (test code = 3256) negative Negative - Negati ve POCT U KETONE (test code = 3258) negative Negative - Neg ative POCT U BLD (test code = 3257) negative Negative - Negati ve [facility] MOLECULAR [id number] 21:17:20* Test Item Value Reference Range Interpretation Comme nts POCT Molecular Strep (test c ode = 85783-6) Negative Negative Lab Interpretation (test cod e = 70350-0) Normal [facility] panel - Blood by Automated [id number] 00:00:00* Test Item Value Reference Range Interpretation Comme nts WBC (test code = WBC) 10.2 10 [...] 0.0-0.2 [facility] [Units/volume] in Serum or [id number] 00:00:00* Test Item Value Reference Range Interpretation Comme nts TSH (test code = TSH) 0.958 uIU/mL 0.178-4.530 [facility] complete panel - [id number] 15:09:00* Test Item Value Reference Range Interpretation Comme nts Leukocytes (test code = Leukocytes) Negative Nitrite (test code = Nitrite) Negative Urobilinogen (test code = Urobilinogen) 0.2 Protein (test code = Protein) Trace PH (test code = PH) 7.5 Blood (test code = Blood) Negative Specific Huntley (test code = Specific Huntley) 1.020 Ketone (test code = Ketone) Negative Bilirubin (test code = Bilirubin) Negative Glucose (test code = Glucose) Negative Appearance (test code = Appearance) Clear Color (test code = Color) Yellow [facility] complete panel - [id number] 11:41:00* Test Item Value Reference Range Interpretation Comme nts Leukocytes (test code = Leukocytes) Negative Nitrite (test code = Nitrite) Negative Urobilinogen (test code = Urobilinogen) 1 Protein (test code = Protein) Trace PH (test code = PH) 6.5 Blood (test code = Blood) Non-Hemolyzed: Trace Specific Huntley (test code = Specific Huntley) 1.030 Ketone (test code = Ketone) Negative Bilirubin (test code = Bilirubin) Negative Glucose (test code = Glucose) Negative Appearance (test code = Appearance) Slightly Cloudy Color (test code = Color) Dark Yellow [facility] W/O SPECIFIC [id number] 20:21:00* Test Item Value Reference Range Interpretation Comme nts POCT PH U (test code = 3254) 8 mg/dl 5-8 POCT U LEUK EST (test code = 3263) Trace Negative - Negative POCT U NIT (test code = 3262) Neg Negative - Negati ve POCT U PROT (test code = 3259) 2+ Negative - Negat kemar POCT U GLU (test code = 3256) Neg Negative - Negati ve POCT U KETONE (test code = 3258) None Negative - Neg ative POCT U BLD (test code = 3257) Neg Negative - Negati ve [facility] [place], [place]GROUP B STREPTOCOCCUS BY [id number] 15:28:00* Test Item Value Reference Range Interpretation Comme nts Group B Streptococcus by PCR (test code = 95938-1) Negative Negative Lab Interpretation (test cod e = 60165-1) Normal [facility] [place], TXGALV ONLY - SYPHILIS [id number] 13:34:00* Test Item Value Reference Range Interpretation Comme nts Syphilis IgG/IgM (test code = 74233-5) Non-reactive Non-reactive MATTHEW (test code = MATTHEW) Non-reactive - No serologic evidence of T. pallidum infection. Cannot exclude incubating or early syphilis. Submit a second specimen in 2-4 weeks if syphilis is clinically suspected. Equivocal - Further testing to follow. Reactive - Further testing to follow. Lab Interpretation (test code = 62945-7) Normal [facility] [place], TXURINE [id number] 11:54:00* Test Item Value Reference Range Interpretation Comme nts URINE CULTURE (test code = 630-4) > 100,000 CFU/mL mixed aerobic organisms - suggests endogenous microbial contamination [facility] WITH [id number] 09:43:00* Test Item Value Reference Range Interpretation Comme nts WBC (test code = 6690-2) See_Comment H [Automated appbackra ge] The system which generated this result transmitted reference range: 4.50 - 13.50 10*3/?L. The reference range was not used to interpret this result as normal/abnormal. RBC (test code = 789-8) See_Comment L [Automated messa ge] The system which generated this result transmitted reference range: 4.10 - 5.10 10*6/?L. The reference range was not used to interpret this result as normal/abnormal. HGB (test code = 718-7) 9.0 g/dL 12-16 L HCT (test code = 4544-3) 28.1 % 36-45 L MCV (test code = 787-2) 84.9 fL 78-95 MCH (test code = 785-6) 27.2 pg 26-32 MCHC (test code = 786-4) 32.0 g/dL 32-36 RDW-SD (test code = 21596-1) 46.4 fL 38.5-49 RDW-CV (test code = 788-0) 14.9 % 11.5-14 H PLT (test code = 777-3) See_Comment H [Automated messa ge] The system which generated this result transmitted reference range: 135 - 361 10*3/?L. The reference range was not used to interpret this result as normal/abnormal. MPV (test code = 41085-9) 9.9 fL 9.4-13.3 NRBC/100 WBC (test code = 7022824460) See_Comment [Automated Quibb ssage] The system which generated this result transmitted reference range: 0.0 - 10.0 /100 WBCs. The reference range was not used to interpret this result as normal/abnormal. NRBC x10^3 (test code = 4990898738) <0.01 See_Comment [Automated messa ge] The system which generated this result transmitted reference range: 10*3/?L. The reference range was not used to interpret this result as normal/abnormal. GRAN MAT (NEUT) % (test code = 770-8) 71.4 % IMM GRAN % (test code = 8900137125) 0.70 % LYMPH % (test code = 736-9) 19.1 % MONO % (test code = 5905-5) 7.4 % EOS % (test code = 713-8) 1.0 % BASO % (test code = 706-2) 0.4 % GRAN MAT x10^3(ANC) (test code = 7171167756) 9.83 10*3/uL 1.5-10.3 IMM GRAN x10^3 (test code = 3778198071) 0.09 10*3/uL 0-0.06 H LYMPH x10^3 (test code = 731-0) 2.62 10*3/uL 0.7-7.4 MONO x10^3 (test code = 742-7) 1.01 10*3/uL 0-0.5 H EOS x10^3 (test code = 711-2) 0.14 10*3/uL 0-0.4 BASO x10^3 (test code = 704-7) 0.05 10*3/uL 0-0.1 Lab Interpretation (test code = 17467-4) Abnormal [facility] [place], TXType and Screen - ONCE [id number] 21:35:19* Test Item Value Reference Range Interpretation Comme nts ABO & RH (test code = 20) A POSITIVE Performed at [facility] [place] Laboratory Services - [facility] Blood [address] Free: [phone] No. [id number] IAT (test code = 1185) Negative Performed at [facility] [place] Laboratory Services [facility] Blood [place] [address]Toll Free: [phone] No. [id number] [facility] [place], TXRHO (D) IMMUNE [id number] 21:04:00* Test Item Value Reference Range Interpretation Comme nts RHIG CANDIDATE? (test code = 5055) No- see comment Patient is not a candidate for RhIg- Patient is Rh Positive.Performed at [facility] Laboratory Services - [facility] Blood [place] [address]Toll Free: [phone] No. [id number] [facility] [place], TXVENOUS CORD [id number] 15:51:00* Test Item Value Reference Range Interpretation Comme nts VENOUS BASE EXCESS, CORD (test code = 4929351439) mEq/L VENOUS PH, CORD (test code = 4006268672) 7.25-7.45 VENOUS PC02, CORD (test code = 3029106636) See_Comment H [Automated me ssage] The system which generated this result transmitted reference range: 27 - 49 mmHg. The reference range was not used to interpret this result as normal/abnormal. VENOUS PO2, CORD (test code = 4313695711) See_Comment L [Automated me ssage] The system which generated this result transmitted reference range: 17 - 41 mmHg. The reference range was not used to interpret this result as normal/abnormal. VENOUS BICARBONATE, CORD (test code = 7349285101) See_Comment [Automa elisabeth message] The system which generated this result transmitted reference range: 12 - 29 mEq/L. The reference range was not used to interpret this result as normal/abnormal. Lab Interpretation (test code = 87073-2) Abnormal [facility] [place], TXARTERIAL CORD [id number] 15:45:00* Test Item Value Reference Range Interpretation Comme nts BASE EXCESS, CORD (test code = 6232124798) mEq/L AC PH, CORD (BEAKER) (test code = 1897190023) 7.18-7.38 PC02, CORD (test code = 8934869812) See_Comment [Automated messa ge] The system which generated this result transmitted reference range: 32 - 66 mmHg. The reference range was not used to interpret this result as normal/abnormal. PO2, CORD (test code = 0560275703) See_Comment [Automated messa ge] The system which generated this result transmitted reference range: 10 - 30 mmHg. The reference range was not used to interpret this result as normal/abnormal. BICARBONATE, CORD (test code = 0025644492) See_Comment [Automated messa ge] The system which generated this result transmitted reference range: 17 - 27 mEq/L. The reference range was not used to interpret this result as normal/abnormal. [facility] [place], TXAD OR OLYA ONLY - [id number] 08:22:00* Test Item Value Reference Range Interpretation Comme nts RPR (Qualitative) (test code = 95995-9) Nonreactive Nonreactive Lab Interpretation (test cod e = 49493-2) Normal [facility] [place], TXProtein CREAT Ratio Urine [id number] 00:50:00* Test Item Value Reference Range Interpretation Comme nts T. PROT U (test code = 2888-6) >1000 mg/dL CREAT U (test code = 7280214689) 149.6 mg/dL Protein/Creatinine Ratio Urine (test code = 8203665375) Unable to judy culate because, either urine total protein, urine creatinine, or both are greater than the linearity of the analyzer. [facility] [place], TXHEPATITIS B SURFACE [id number] 23:04:00 * Test Item Value Reference Range Interpretation Comme nts HBsAg Semi-Quantitative (celine t code = 5195-3) Negative Negative [facility] [place], TXHIV 1/2 AG-AB WITH [id number] 22:50:00* Test Item Value Reference Range Interpretation Comme nts HIV Semi-quantitative (test code = 84732-6) Negative Negative MATTHEW (test code = MATTHEW) Non-reactive for HIV-1 antigen and HIV-1/HIV-2 antibodies. ?No laboratory evidence of HIV infection. ?Repeat in 2-4 weeks if acute HIV infection is suspected. [facility] [place], TXUS PELVIS > 14 [id number] 21:56:331. Single live intrauterine with size equals dates. 2. Normal biophysical profile. RL: 3901AFC: 73197 End of report EXAM:US PELVIS > 14 WEEKS, US BIOPHYSICAL PROFILE [...] 14 WEEKS, US BIOPHYSICAL PROFILEOrdering Physician: TERESA RENNER HISTORY: Abdominal pain. Hypertension. Possible preeclampsia.COMPARISON: nonePermanently recorded sonographic images were stored in the PACs system. CHUCK: 2019Transabdominal imaging wasperformed. FINDINGS:There is a single live intrauterine gestation in cephalic position withfundal placenta. The placenta appears unremarkable. Cervical length ispoorly assessed due to position. heart rate is 153 beats perminute. survey not performed as part of this examination. Fetus asvisualized appears grossly unremarkable. The following biometric data wereobtained:BPD 34 weeks 1 dayHC 34 weeks 1 dayAC 32 weeks 4 daysFL 35 weeks 4 daysEFW [address] by dates: 34 weeks 3 daysAge by US: 34 weeks 0 daysBiophysical profile was also performed. There is a normal amount ofamnioticfluid with JIM of 11.3 cm. 2 points given each for fetalbreathing, movement, tone, and antibiotic fluid volume for a total of 8/8.IMPRESSION1. Single live intrauterine with size equals dates.2. Normal biophysical profile.RL: 3901AFC: 04006Qlv of report [facility] [place] BIOPHYSICAL [id number] 21:55:081. Single live intrauterine with size equals dates. 2. Normal biophysical profile. RL: 3901AFC: 60809 End of report EXAM:US PELVIS > 14 WEEKS, US BIOPHYSICAL PROFILE Ordering Physician: MARIELLE JACKMAN HISTORY: Abdominal pain. Hypertension. Possible preeclampsia. COMPARISON: none Permanently recorded sonographic images were stored in the PACs system. CHUCK: 2019 Transabdominal imaging was pe rformed. FINDINGS:There is a single live intrauterine gestation [...] in the PACs system. CHUCK: 2019Transabdominal imaging wasperformed. FINDINGS:There is a single live intrauterine gestation in cephalic position withfundal placenta. The placenta appears unremarkable. Cervical length ispoorly assessed due to position. heart rate is 153 beats perminute. survey not performed as part of this examination. Fetus asvisualized appears grossly unremarkable. The following biometric data wereobtained:BPD 34 weeks 1 dayHC 34 weeks 1 dayAC 32 weeks 4 daysFL 35 weeks 4 daysEFW [address] by dates: 34 weeks 3 daysAge by US: 34 weeks 0 daysBiophysical profile was also performed. There is a normal amount ofamnioticfluid with JIM of 11.3 cm. 2 points given each for fetalbreathing, movement, tone, and antibiotic fluid volume for a total of 11/19.IMPRESSION1. Single live intrauterine with size equals dates.2. Normal biophysical profile.RL: 3901AFC: 57134Vge of report [facility] [place], TXType and Screen - ONCE [id number] 20:25:29 * Test Item Value Reference Range Interpretation Comme [facility] ABO & RH (test code = 20) A Positive Performed at [facility] [place] Laboratory [facility] Blood [address] Free: [phone] No. [id number] IAT (test code = 1185) Negative Performed at [facility] Blood [address] Free: [phone] No. [id number] [facility] [place], TXAlanine Amino Transferase (SGPT)2019-07-25 20:14:00* Test Item Value Reference Range Interpretation Comme [facility] ALTv (test code = 1742-6) 22 U/L 5-35 Lab Interpretation (test cod e = 46538-6) Normal [facility] [place], TXUric Acid [id number] 20:13:00* Test Item Value Reference Range Interpretation Comme [facility] URIC ACID (test code = 5023870501) 4.3 mg/dL 2.9-6 Lab Interpretation (test cod e = 00579-6) Normal [facility] [place], TXSerum [id number] 20:13:00* Test Item Value Reference Range Interpretation Comme [facility] CREATININE (test code = 8665937264) 0.39 mg/dL 0.5-1.04 L eGFR Calculation (Non-) (test code = 7805243207) mL/min/1.73m2 eGFR Calculation () (test code = 3722984693) mL/min/1.73m2 MATTHEW (test code = MATTHEW) Association of [...] or abnormalities in imaging tests). Lab Interpretation (test code = 84744-9) Abnormal [facility] [place], TXSGOT (Asparate Amino Transfer)2019-07-25 20:13:00* Test Item Value Reference Range Interpretation Comme nts AST(SGOT) (test code = 5188445654) 37 U/L 13-40 Lab Interpretation (test cod e = 85363-8) Normal [facility] [place], TXLactate [id number] 20:13:00* Test Item Value Reference Range Interpretation Comme nts LDH (test code = 9614184819) 556 U/L 300-600 Lab Interpretation (test cod e = 92840-7) Normal [facility] [place], TXUrinalysis2020-04-12 20:12:00* Test Item Value Reference Range Interpretation Comme nts APPEARANCE (test code = 0702263487) Hazy Clear A COLOR (test code = 9864794449) Yellow Yellow PH (test code = 6314535705) 4.8-8.0 SP GRAVITY (test code = 4849059724) 1.003-1.030 GLU U QUAL (test code = 7477691598) Normal Normal BLOOD (test code = 7052204056) Negative Negative KETONES (test code = 1013162711) Negative Negative PROTEIN (test code = 2887-8) 100 mg/dL Negative A UROBILIN (test code = 0279697889) Normal Normal BILIRUBIN (test code = 7339651999) Negative Negative NITRITE (test code = 3977823633) Negative Negative LEUK VASQUEZ (test code = 0760045747) Negative Negative RBC/HPF (test code = 8741006764) See_Comment [Automated messa ge] The system which generated this result transmitted reference range: 0 - 3 HPF. The reference range was not used to interpret this result as normal/abnormal. WBC/HPF (test code = 4357721696) See_Comment H [Automated messa ge] The system which generated this result transmitted reference range: 0 - 5 HPF. The reference range was not used to interpret this result as normal/abnormal. BACTERIA (test code = 6090726488) Many Negative A MUCOUS (test code = 8200368950) Slight Negative LPF A SQ EPITH (test code = 0030776000) HPF HYAL CAST (test code = 9227712708) See_Comment H [Automated messa ge] The system which generated this result transmitted reference range: <=2 LPF. The reference range was not used to interpret this result as normal/abnormal. TRANS EPI (test code = 7384028895) See_Comment [Automated messa ge] The system which generated this result transmitted reference range: <=1 HPF. The reference range was not used to interpret this result as normal/abnormal. ROMELIA EPITH (test code = 8910454563) See_Comment [Automated messa ge] The system which generated this result transmitted reference range: <=1 HPF. The reference range was not used to interpret this result as normal/abnormal. WBC CAST (test code = 0108989315) See_Comment H [Automated messa ge] The system which generated this result transmitted reference range: <=1 LPF. The reference range was not used to interpret this result as normal/abnormal. GRAN CASTS (test code = 5825465709) See_Comment [Automated messa ge] The system which generated this result transmitted reference range: <=1 LPF. The reference range was not used to interpret this result as normal/abnormal. Lab Interpretation (test code = 53577-5) Abnormal [facility] WITH [id number] 19:56:00* Test Item Value Reference Range Interpretation Comme nts WBC (test code = 6690-2) See_Comment [Automated messa ge] The system which generated this result transmitted reference range: 4.50 - 13.50 10*3/?L. The reference range was not used to interpret this result as normal/abnormal. RBC (test code = 789-8) See_Comment L [Automated appbackra ge] The system which generated this result transmitted reference range: 4.10 - 5.10 10*6/?L. The reference range was not used to interpret this result as normal/abnormal. HGB (test code = 718-7) 9.9 g/dL 12-16 L HCT (test code = 4544-3) 30.3 % 36-45 L MCV (test code = 787-2) 83.9 fL 78-95 MCH (test code = 785-6) 27.4 pg 26-32 MCHC (test code = 786-4) 32.7 g/dL 32-36 RDW-SD (test code = 14058-1) 42.6 fL 38.5-49 RDW-CV (test code = 788-0) 13.9 % 11.5-14 PLT (test code = 777-3) See_Comment H [Automated appbackra ge] The system which generated this result transmitted reference range: 135 - 361 10*3/?L. The reference range was not used to interpret this result as normal/abnormal. MPV (test code = 10279-6) 10.0 fL 9.4-13.3 NRBC/100 WBC (test code = 3973604583) See_Comment [Automated Quibb ssage] The system which generated this result transmitted reference range: 0.0 - 10.0 /100 WBCs. The reference range was not used to interpret this result as normal/abnormal. NRBC x10^3 (test code = 2287225372) <0.01 See_Comment [Automated appbackra ge] The system which generated this result transmitted reference range: 10*3/?L. The reference range was not used to interpret this result as normal/abnormal. GRAN MAT (NEUT) % (test code = 770-8) 69.6 % IMM GRAN % (test code = 3498821986) 0.50 % LYMPH % (test code = 736-9) 18.8 % MONO % (test code = 5905-5) 8.1 % EOS % (test code = 713-8) 2.6 % BASO % (test code = 706-2) 0.4 % GRAN MAT x10^3(ANC) (test code = 9535966755) 7.80 10*3/uL 1.5-10.3 IMM GRAN x10^3 (test code = 3593245300) 0.06 10*3/uL 0-0.06 LYMPH x10^3 (test code = 731-0) 2.11 10*3/uL 0.7-7.4 MONO x10^3 (test code = 742-7) 0.91 10*3/uL 0-0.5 H EOS x10^3 (test code = 711-2) 0.29 10*3/uL 0-0.4 BASO x10^3 (test code = 704-7) 0.05 10*3/uL 0-0.1 Lab Interpretation (test code = 92867-9) Abnormal [facility] [place], TXCORONAVIRUS COVID-19 [id number] 19:49:00* Test Item Value Reference Range Interpretation Comme nts SARS-CoV-2 (test code = 96867-0) Not Detected Not Detected MATTHEW (test code = MATTHEW) ID NOW COVID-19 As say is an isothermal nucleic acid amplification test intended for the qualitative detection of nucleic acid from SARS-CoV-2 viral RNA in nasopharyngeal (BREAD MOLDER) specimens. It is used under Emergency Use [...] patient testing if clinically indicated. Lab Interpretation (test code = 46022-8) Normal [facility] [place], TXPOCT URINALYSIS W/O SPECIFIC [id number] 20:03:00* Test Item Value Reference Range Interpretation Comme nts POCT PH U (test code = 3254) 7 mg/dl 5-8 POCT U LEUK EST (test code = 3263) 2+ Negative - Negative POCT U NIT (test code = 3262) neg Negative - Negati ve POCT U PROT (test code = 3259) 1+ Negative - Negat kemar POCT U GLU (test code = 3256) neg Negative - Negati ve POCT U KETONE (test code = 3258) neg Negative - Neg ative POCT U BLD (test code = 3257) neg Negative - Negati ve Lab Interpretation (test cod e = 40743-4) Abnormal [facility] URINALYSIS W/O SPECIFIC [id number] 20:03:00* Test Item Value Reference Range Interpretation Comme nts POCT PH U (test code = 3254) 7 mg/dl 5-8 POCT U LEUK EST (test code = 3263) 2+ Negative - Negative POCT U NIT (test code = 3262) neg Negative - Negati ve POCT U PROT (test code = 3259) 1+ Negative - Negat kemar POCT U GLU (test code = 3256) neg Negative - Negati ve POCT U KETONE (test code = 3258) neg Negative - Neg ative POCT U BLD (test code = 3257) neg Negative - Negati ve Lab Interpretation (test cod e = 62496-8) Abnormal [facility] [place], TXADC,CLC OR LCC ONLY - INFLUENZA A & B DIRECT [id number] 03:20:00* Test Item Value Reference Range Interpretation Comme nts Influenza A (test code = 27569-0) Negative Negative Influenza B (test code = 64440-3) Negative Negative Lab Interpretation (test cod e = 83739-8) Normal [facility] URINALYSIS GLUCOSE & [id number] 16:42:00* Test Item Value Reference Range Interpretation Comme nts POCT U PROT (test code = 3259) trace Negative - Negat kemar POCT U GLU (test code = 3256) neg Negative - Negati ve Lab Interpretation (test cod e = 81863-1) Abnormal [facility] URINALYSIS W/O SPECIFIC [id number] 16:42:00* Test Item Value Reference Range Interpretation Comme nts POCT PH U (test code = 3254) 7 mg/dl 5-8 POCT U LEUK EST (test code = 3263) 1+ Negative - Negative POCT U NIT (test code = 3262) neg Negative - Negati ve POCT U PROT (test code = 3259) trace Negative - Negat kemar POCT U GLU (test code = 3256) neg Negative - Negati ve POCT U KETONE (test code = 3258) neg Negative - Neg ative POCT U BLD (test code = 3257) trace Negative - Negati ve Lab Interpretation (test cod e = 78703-0) Abnormal [facility] URINALYSIS GLUCOSE & [id number] 16:42:00* Test Item Value Reference Range Interpretation Comme nts POCT U PROT (test code = 3259) trace Negative - Negat kemar POCT U GLU (test code = 3256) neg Negative - Negati ve Lab Interpretation (test cod e = 71651-9) Abnormal [facility] URINALYSIS W/O SPECIFIC [id number] 16:42:00* Test Item Value Reference Range Interpretation Comme nts POCT PH U (test code = 3254) 7 mg/dl 5-8 POCT U LEUK EST (test code = 3263) 1+ Negative - Negative POCT U NIT (test code = 3262) neg Negative - Negati ve POCT U PROT (test code = 3259) trace Negative - Negat kemar POCT U GLU (test code = 3256) neg Negative - Negati ve POCT U KETONE (test code = 3258) neg Negative - Neg ative POCT U BLD (test code = 3257) trace Negative - Negati ve Lab Interpretation (test cod e = 92220-8) Abnormal [facility] URINALYSIS GLUCOSE & [id number] 16:42:00* Test Item Value Reference Range Interpretation Comme nts POCT U PROT (test code = 3259) trace Negative - Negat kemar POCT U GLU (test code = 3256) neg Negative - Negati ve Lab Interpretation (test cod e = 93451-9) Abnormal [facility] URINALYSIS W/O SPECIFIC [id number] 16:42:00* Test Item Value Reference Range Interpretation Comme nts POCT PH U (test code = 3254) 7 mg/dl 5-8 POCT U LEUK EST (test code = 3263) 1+ Negative - Negative POCT U NIT (test code = 3262) neg Negative - Negati ve POCT U PROT (test code = 3259) trace Negative - Negat kemar POCT U GLU (test code = 3256) neg Negative - Negati ve POCT U KETONE (test code = 3258) neg Negative - Neg ative POCT U BLD (test code = 3257) trace Negative - Negati ve Lab Interpretation (test cod e = 09996-7) Abnormal [facility] URINALYSIS GLUCOSE & [id number] 16:42:00* Test Item Value Reference Range Interpretation Comme nts POCT U PROT (test code = 3259) trace Negative - Negat kemar POCT U GLU (test code = 3256) neg Negative - Negati ve Lab Interpretation (test cod e = 81158-9) Abnormal [facility] URINALYSIS W/O SPECIFIC [id number] 16:42:00* Test Item Value Reference Range Interpretation Comme nts POCT PH U (test code = 3254) 7 mg/dl 5-8 POCT U LEUK EST (test code = 3263) 1+ Negative - Negative POCT U NIT (test code = 3262) neg Negative - Negati ve POCT U PROT (test code = 3259) trace Negative - Negat kemar POCT U GLU (test code = 3256) neg Negative - Negati ve POCT U KETONE (test code = 3258) neg Negative - Neg ative POCT U BLD (test code = 3257) trace Negative - Negati ve Lab Interpretation (test cod e = 87204-6) Abnormal [facility]. METABOLIC PANEL (17394)2019-05-24 01:58:00* Test Item Value Reference Range Interpretation Comme nts NA (test code = 1909875640) 138 mmol/L 135-145 K (test code = 3125073729) 3.2 mmol/L 3.5-5 L CL (test code = 7378951381) 106 mmol/L 98-108 CO2 TOTAL (test code = 6102662298) 23 mmol/L 23-31 AGAP (test code = 7602260738) 2-16 BUN (test code = 9448718078) 3 mg/dL 7-23 L GLUCOSE (test code = 5357950314) 89 mg/dL 70-110 CREATININE (test code = 1076365490) 0.31 mg/dL 0.5-1.04 L TOTAL BILI (test code = 2672318122) <0.1 0.1-1.1 L CALCIUM (test code = 3897529605) 8.9 mg/dL 8.6-10.6 T PROTEIN (test code = 2875542612) 6.7 g/dL 6.3-8.2 ALBUMIN (test code = 2403157478) 3.8 g/dL 3.5-5 ALK PHOS (test code = 6236317580) 98 U/L 34-122 ALTv (test code = 1742-6) 12 U/L 5-35 AST(SGOT) (test code = 4564177572) 22 U/L 13-40 eGFR Calculation (Non-) (test code = 9742150831) mL/min/1.73m2 eGFR Calculation () (test code = 2336279105) mL/min/1.73m2 MATTHEW (test code = MATTHEW) Association of [...] or abnormalities in imaging tests). Lab Interpretation (test code = 17350-1) Abnormal [facility] [place], TXURINALYSIS2020-02-10 01:55:00* Test Item Value Reference Range Interpretation Comme nts APPEARANCE (test code = 3644997495) Cloudy Clear A COLOR (test code = 9430934818) Yellow Yellow PH (test code = 5489006775) 4.8-8.0 SP GRAVITY (test code = 7908301868) 1.003-1.030 GLU U QUAL (test code = 0981988423) Normal Normal BLOOD (test code = 1473545129) Negative Negative KETONES (test code = 2119221784) Negative Negative PROTEIN (test code = 2887-8) Negative Negative UROBILIN (test code = 0087126524) 2.0 mg/dL Normal A BILIRUBIN (test code = 7517723168) Negative Negative NITRITE (test code = 1108298439) Negative Negative LEUK VASQUEZ (test code = 4341856180) 500/uL Negative A RBC/HPF (test code = 2874995823) See_Comment H [Automated messa ge] The system which generated this result transmitted reference range: 0 - 3 HPF. The reference range was not used to interpret this result as normal/abnormal. WBC/HPF (test code = 3622424577) See_Comment H [Automated messa ge] The system which generated this result transmitted reference range: 0 - 5 HPF. The reference range was not used to interpret this result as normal/abnormal. BACTERIA (test code = 3919531791) Many Negative A MUCOUS (test code = 8601729058) Moderate Negative LPF A SQ EPITH (test code = 9253442094) HPF TRANS EPI (test code = 9462087262) <1 See_Comment [Automated messa ge] The system which generated this result transmitted reference range: <=1 HPF. The reference range was not used to interpret this result as normal/abnormal. ROMELIA EPITH (test code = 8178916110) <1 See_Comment [Automated messa ge] The system which generated this result transmitted reference range: <=1 HPF. The reference range was not used to interpret this result as normal/abnormal. Lab Interpretation (test code = 27571-8) Abnormal [facility] WITH [id number] 01:28:00* Test Item Value Reference Range Interpretation Comme nts WBC (test code = 6690-2) See_Comment [Automated messa ge] The system which generated this result transmitted reference range: 4.50 - 13.50 10*3/?L. The reference range was not used to interpret this result as normal/abnormal. RBC (test code = 789-8) See_Comment L [Automated messa ge] The system which generated this result transmitted reference range: 4.10 - 5.10 10*6/?L. The reference range was not used to interpret this result as normal/abnormal. HGB (test code = 718-7) 10.8 g/dL 12-16 L HCT (test code = 4544-3) 32.9 % 36-45 L MCV (test code = 787-2) 88.7 fL 78-95 MCH (test code = 785-6) 29.1 pg 26-32 MCHC (test code = 786-4) 32.8 g/dL 32-36 RDW-SD (test code = 70767-6) 38.2 fL 38.5-49 L RDW-CV (test code = 788-0) 11.9 % 11.5-14 PLT (test code = 777-3) See_Comment [Automated messa ge] The system which generated this result transmitted reference range: 135 - 361 10*3/?L. The reference range was not used to interpret this result as normal/abnormal. MPV (test code = 20465-6) 9.8 fL 9.4-13.3 NRBC/100 WBC (test code = 1931067049) See_Comment [Automated Quibb ssage] The system which generated this result transmitted reference range: 0.0 - 10.0 /100 WBCs. The reference range was not used to interpret this result as normal/abnormal. NRBC x10^3 (test code = 6970510880) <0.01 See_Comment [Automated messa ge] The system which generated this result transmitted reference range: 10*3/?L. The reference range was not used to interpret this result as normal/abnormal. GRAN MAT (NEUT) % (test code = 770-8) 65.5 % IMM GRAN % (test code = 2274459271) 0.50 % LYMPH % (test code = 736-9) 23.4 % MONO % (test code = 5905-5) 7.4 % EOS % (test code = 713-8) 2.7 % BASO % (test code = 706-2) 0.5 % GRAN MAT x10^3(ANC) (test code = 0829218837) 6.10 10*3/uL 1.5-10.3 IMM GRAN x10^3 (test code = 6487242790) 0.05 10*3/uL 0-0.06 LYMPH x10^3 (test code = 731-0) 2.18 10*3/uL 0.7-7.4 MONO x10^3 (test code = 742-7) 0.69 10*3/uL 0-0.5 H EOS x10^3 (test code = 711-2) 0.25 10*3/uL 0-0.4 BASO x10^3 (test code = 704-7) 0.05 10*3/uL 0-0.1 Lab Interpretation (test code = 25820-1) Abnormal [facility] [place], TXCT Abdomen Pelvis W Con Name: OUMAR GALLOWAYBRENDA : 2000 [facility] Name: OUMAR GALLOWAYBRENDA [address] [facility] Phys: [place] [address] : 2000 Age: 23 SEX:F Exam Date: 09/23/23 Status: REG ER Acct: [id number] Loc: [facility] Pt Unit #: [id number] Report #: [id number] CC: Wolfgang Wolf MD PULSE CHECKSJX:[id number] CAT SCAN REPORT Report Status: Signed Order # Category/Exam [id number] CT/CTAbdomen Pelvis W Con ([id number]): . Results EXAM: CT ABDOMEN AND PELVIS WITH CONTRAST TECHNIQUE: CT of the abdomen and pelvis with intravenous contrast and without oral contrast. Dose modulation, iterative reconstruction, and/or weight-based adjustment of the mA/kV was utilized to reduce the radiation dose to as low as reasonably achievable. INDICATION: Right flank pain COMPARISON: None. FINDINGS: LOWER THORAX: Unremarkable. HEPATOBILIARY: No focal hepatic lesions. Gallbladder is unremarkable. No biliary ductal dilatation. SPLEEN: No splenomegaly. PANCREAS: No focal masses or ductal dilatation. ADRENALS: No adrenal nodule. KIDNEYS/URETERS: No hydronephrosis, stones or solid mass lesion. Bladder is thick walled, which is nonspecific with lack of distention. Correlation with urinalysis may be obtained if there is concern for urinary tract infection. PERITONEUM/RETROPERITONEUM: No free air or fluid. LYMPH NODES: No lymphadenopathy. VESSELS: Unremarkable. GI TRACT: No distention or wallthickening. The appendix is not definitely identified, however, there is no focal inflammation within the right lower quadrant. BONES AND SOFT TISSUES: Unremarkable. IMPRESSION: No renal or ureteral calculi. Bladder is thick walled, which is nonspecific with lack of distention. Correlation with urinalysis may be obtained if there is concern for urinary tract infection. Reported By: Josseline Natarajan MD Electronically Signed Date/Time: 09/23/232052 Technologist: Dictated Date/Time: 09/23/232045 Transcribed Date/Time:
--- NOTE | 2024-05-15 07:26 | EDPHYS ---
Physician Documentation [facility] Name: Kaleigh Alston Age: 23 yrs Sex: Female : 2000 Arrival Date: 05/15/2024 Time: 07:03 Bed IW1 Private MD: ED Physician Jewel Marquez HPI: 05/15 07:19 This 23 yrs old Female presents to ER via Ambulatory with complaints of dental rn pain. 07:20 The patient presents with pain, redness, swelling. Onset: The symptoms/episode rn began/occurred 3 day(s) ago. Modifying factors: The symptoms are alleviated by nothing. Associated signs and symptoms: Pertinent positives: redness in area, Pertinent negatives: fever, inability to eat. Severity of symptoms: At their worst the symptoms were mild, in the emergency department the symptoms are unchanged. The patient has not experienced similar symptoms in the past. The patient has been recently seen by a physician:. Patient reports left upper tooth pulled 1 week ago, initially was doing okay and then started having more pain and swelling in the area. Went back to the dentist and prescribed Zithromax. Finished Zithromax prescription and still having pain and redness. Went back to dentist yesterday and prescribed clindamycin because patient is allergic to amoxicillin. Patient did not fill prescription. Came in today to make sure she was not septic. Patient reports subjective chills, pain to the left side of the mouth, and myalgias. No fever. No vomiting or diarrhea. No chest or abdominal pain. No shortness of breath. No rash.. Historical: - Allergies: 07:17 Amoxicillin; gets yeast infection; hb - Home Meds: 07:17 None [Active]; hb - PMHx: 07:17 None; hb - PSHx: 07:17 Appendectomy; hb - Immunization history:: Adult Immunizations up to date. - Infectious Disease History:: Denies. - Social history:: Smoking status: Patient denies any tobacco usage or history of. - Family history:: not pertinent. - Hospitalizations: : No recent hospitalization is reported. ROS: 07:20 Constitutional: + chills ENT: + left upper dental pain Cardiovascular: Negative for rn chest pain, palpitations, and edema, Respiratory: Negative for shortness of breath, cough, wheezing, and pleuritic chest pain, Abdomen/GI: Negative for abdominal pain, nausea, vomiting, diarrhea, and constipation, MS/Extremity: Negative for injury and deformity, Skin: Negative for injury, rash, and discoloration, Neuro: Negative for weakness, numbness, tingling, and seizure, Exam: 07:20 Constitutional: This is a well developed, well nourished patient who is awake, alert, rn and in no acute distress. Head/Face: Normocephalic, atraumatic. ENT: Poor dentition, left upper dental pain with gingival erythema, no purulence Neck: Trachea midline, no masses palpated, and no cervical lymphadenopathy. Supple, full range of motion without nuchal rigidity, or vertebral point tenderness. No Meningismus. Cardiovascular: Regular rate and rhythm. No pulse deficits. Respiratory: No increased work of breathing, no retractions or nasal flaring. Neuro: Awake and alert, GCS 15 Vital Signs: 07:16 BP 125 / 98; Pulse 78; Resp 16; Temp 97.7(TE); Pulse Ox 98% on R/A; Weight 54.43 kg; hb Height 5 ft. 7 in. ; Pain 5/10; 07:16 Body Mass Index 18.79 (54.43 kg, 170.18 cm) hb 07:16 Pain Scale: Adult hb MDM: 07:10 Medical Screening Exam initiated rn 07:20 Differential diagnosis: dental caries, gingivitis. Data reviewed: vital signs, nurses rn notes, and as a result, I will discharge patient. Counseling: I had a detailed discussion with the patient and/or guardian regarding the historical points, exam findings, and any diagnostic results supporting the discharge/admit diagnosis, the need for outpatient follow up, to return to the emergency department if symptoms worsen or persist or if there are any questions or concerns that arise at home. Special discussion: I discussed with the patient/guardian in detail that at this point there is no indication for admission to the hospital. It is understood, however, that if the symptoms persist or worsen the patient needs to return immediately for re-evaluation. Based on the history and exam findings, there is no indication for further emergent testing or inpatient evaluation. I discussed with the patient/guardian the need to see a dentist for further evaluation of the symptoms. ED course: Mild erythema along gingival surface. No evidence of abscess or purulence. No significant swelling. No swelling or tenderness of the neck or meningismus. Already has prescription for clindamycin but has not filled that, recommend taking clindamycin and given return precautions.. Administered Medications: No medications were administered Disposition Summary: 05/15/24 07:25 Discharge Ordered Notes: Location: Home rn Problem: new rn Symptoms: have improved rn Condition: Stable rn Diagnosis - Dental pain rn Followup: rn - With: Private Physician - When: As needed - Reason: Recheck today's complaints, Re-evaluation by your physician Discharge Instructions: - Discharge Summary Sheet rn - Dental Pain rn Forms: - Medication Reconciliation Form rn - Antibiotic corner former - Prescription Opioid Use rn - Patient Portal Instructions rn - Leadership Thank You Letter rn Prescriptions: - clindamycin palmitate HCl 75 mg/5 mL Oral Recon Soln - administer 20 milliliter ORAL route every 6 hours for 10 days; 800 milliliter; rn Refills: 0, Product Selection Permitted Signatures: Jewel Marquez MD MD rn Baxter, Heather, RN RN
--- NOTE | 2024-05-15 07:26 | ER ---
Nurse's Notes [facility] Name: Kaleigh Alston Age: 23 yrs Sex: Female : 2000 Arrival Date: 05/15/2024 Time: 07:03 Bed IW1 Private MD: Diagnosis: Dental pain Presentation: 05/15 07:16 Chief complaint: Headache, body aches, diarrhea, and left upper jaw pain that started hb after tooth extraction 9 days ago. Coronavirus screen: At this time, the client does not indicate any symptoms associated with coronavirus-19. Ebola Screen: No symptoms or risks identified at this time. Initial Sepsis Screen: Does the patient meet any 2 criteria? No. Patient's initial sepsis screen is negative. Does the patient have a suspected source of infection? No. Patient's initial sepsis screen is negative. Risk Assessment: Do you want to hurt yourself or someone else? Patient reports no desire to harm self or others. Onset of symptoms was May 06, 2024. 07:16 Method Of Arrival: Ambulatory 07:16 Acuity: FRANK 4 hb Triage Assessment: 07:17 Headache History: Denies prior headaches. General: Appears in no apparent distress. hb Behavior is calm, cooperative. Pain: Pain currently is 7 out of 10 on a pain scale. Neuro: Level of Consciousness is awake, alert, obeys commands, Oriented to person, place, time, situation. Cardiovascular: Patient's skin is warm and dry. Respiratory: Respiratory effort is even, unlabored, Respiratory pattern is regular, symmetrical. Historical: - Allergies: 07:17 Amoxicillin; gets yeast infection; hb - Home Meds: 07:17 None [Active]; hb - PMHx: 07:17 None; hb - PSHx: 07:17 Appendectomy; hb - Immunization history:: Adult Immunizations up to date. - Infectious Disease History:: Denies. - Social history:: Smoking status: Patient denies any tobacco usage or history of. - Family history:: not pertinent. - Hospitalizations: : No recent hospitalization is reported. Screenin:18 [facility] ED Fall Risk Assessment (Adult) History of falling in the last 3 months, hb including since admission No falls in past 3 months (0 pts) Confusion or Disorientation No (0 pts) Intoxicated or Sedated No (0 pts) Impaired Gait No (0 pts) Mobility Assist Device Used No (0 pt) Altered Elimination No (0 pt) Score/Fall Risk Level 0 - 2 = Low Risk Oriented to surroundings, Maintained a safe environment, Educated pt \T\ family on fall prevention, incl call for assistance when getting out of bed. Abuse screen: Denies threats or abuse. Denies injuries from another. Nutritional screening: No deficits noted. Tuberculosis screening: No symptoms or risk factors identified. Assessment: 07:18 General: See triage assessment . hb Vital Signs: 07:16 BP 125 / 98; Pulse 78; Resp 16; Temp 97.7(TE); Pulse Ox 98% on R/A; Weight 54.43 kg; hb Height 5 ft. 7 in. ; Pain 5/10; 07:16 Body Mass Index 18.79 (54.43 kg, 170.18 cm) hb 07:16 Pain Scale: Adult hb ED Course: 07:07 Patient arrived in ED. gm2 07:10 Jewel Marquez MD is Attending Physician. rn 07:17 Triage completed. hb 07:17 Arm band placed on. hb 07:18 Patient has correct armband on for positive identification. Provided Education on: hb medication follow up . 07:18 No provider procedures requiring assistance completed. Patient did not have IV access hb during this emergency room visit. 07:37 Jesenia Strauss, RN is Primary Nurse. hb Administered Medications: No medications were administered Medication: 07:18 VIS not applicable for this client. hb Outcome: 07:25 Discharge ordered by . rn 07:37 Discharged to home ambulatory, hb 07:37 Condition: stable 07:37 Discharge instructions given to patient, Instructed on discharge instructions, follow up and referral plans. medication usage, Demonstrated understanding of instructions, follow-up care, medications, 07:38 Patient left the ED. hb Signatures: Jewel Marquez MD MD rn Baxter, Heather, RN RN hb Mitchell, Ginger gm2 Corrections: (The following items were deleted from the chart) 07:20 07:16 Chief complaint: Headache, body aches, diarrhea, and left lower jaw pain that hb started after tooth extraction 9 days ago. hb 07:20 07:16 BP 125 / 98; Pulse 78bpm; Resp 16bpm; Pulse Ox 98% RA; Temp 97.7F Temporal; hb hb
[2024-05-15 07:52] VITALS: BP 125/98; TEMP 97.7; O2SAT 98
[2024-05-15] MEDS ORDERED: NA CHLORIDE 0.9% 1,000 ML ONE (09:42)
== END 2024-05-15 07:38 | disposition home or self-care (01) ==
LOC: ER 07:03
DX: K08.89 Other specified disorders of teeth and supporting structures (principal); Z88.0 Allergy status to penicillin
CPT/HCPCS: 99282; J7030